=== PATIENT | male | born 1955 | race Caucasian/White ===

== ENCOUNTER → 2016-09-25 | Outpatient (CLI) | payer OTHER ==
[~2016-09-25] MED LIST: ASPEC81 PO; ASPI325T45 PO; B-COCAP20 PO; CALC0.5C2 PO; CARV6.252 PO; CIPR1TAB10 PO; CLOP1TAB15 PO; CMD5 PO; CPR500 PO; CRG125 PO; DAPT500I IV; DOCU-94 PO; ENOX30IN4 SQ; ERGO500037 PO; FENO145T26 PO; FRS/40 PO; GABA-112 PO; GABA-113 PO; GABA1CAP PO; GABA800T PO; GLY/5 PO; GLYB-236 PO; GLYB5TAB3 PO; HYDR-4452 PO; HYDR-5688 PO; INSDGI SC; INSDGIPEN SC; INSU1INJ2 SC; INSU1MIS SC; LACT10SO17 PO; LISI-725 PO; LNX125 PO; LORA-741 PO; LOVEN; LSX40 PO; METO25TA3 PO; METO5TAB25 PO; MIDO5TAB PO; NRN/300 PO; NRN100 PO; NTRGSL/4 UT; NVLG SC; OMEG10007 PO; PSYL48.59; VANC1INJ94 IV; WARF5TAB7 PO; ZLF50 PO
[2016-09-25 13:55] LABS: BLOOD UREA NITROGEN 49 mg/dl (7-18); BUN/CREATININE RATIO 12.4 (10-20); CALCIUM 8.6 mg/dl (8.5-10.1); CARBON DIOXIDE 23 mmol/L (21-32); CHLORIDE 108 mmol/L (98-107); GLUCOSE 72 mg/dl (70-99); POTASSIUM 4.1 mmol/L (3.5-5.1); SODIUM 142 mmol/L (136-145)
== END | disposition home or self-care (01) ==
LOC: C.LABMFLN 09:14
PROVIDERS: ATTEND Family Medicine
DX: I25.10 Atherosclerotic heart disease of native coronary artery without angina pectoris (principal); I50.9 Heart failure, unspecified

== ENCOUNTER → 2016-09-27 | Outpatient (CLI) | payer OTHER ==
[2016-09-27 13:24] LABS: HEMATOCRIT 36.7 % (42-52); MEAN CELL VOLUME 89.1 fL (80-100); MEAN CORPUSCULAR HEMOGLOBIN 28.4 pg (25-34); MEAN CORPUSCULAR HGB CONC 31.9 g/dl (32-36); MEAN PLATELET VOLUME 12.4 fL (7.4-10.4); PLATELET COUNT 156 K/uL (130-400); RED BLOOD COUNT 4.12 M/uL (4.7-6.1); WHITE BLOOD COUNT 6.55 K/uL (4.8-10.8)
[2016-09-27 13:38] LABS: BLOOD UREA NITROGEN 44 mg/dl (7-18); BUN/CREATININE RATIO 11.2 (10-20); CALCIUM 8.7 mg/dl (8.5-10.1); CARBON DIOXIDE 24 mmol/L (21-32); CHLORIDE 110 mmol/L (98-107); GLUCOSE 126 mg/dl (70-99); PHOSPHORUS 4.1 mg/dl (2.5-4.9); POTASSIUM 5.1 mmol/L (3.5-5.1); SODIUM 143 mmol/L (136-145); URIC ACID 8.4 mg/dl (2.6-7.2); URINE APPEARANCE CLEAR (CLEAR); URINE BILIRUBIN NEG (NEG); URINE COLOR YELLOW; URINE NITRITE NEG (NEG); UROBILINOGEN NEG (NEG)
[2016-09-27 13:39] LABS: URINE PROTIEN/CREAT RATIO 2.4 (0-0.2); URINE TOTAL PROTEIN 236.9 mg/dl (0-11.9)
[2016-09-27 13:43] LABS: MANUAL MICROSCOPIC REQUIRED? NO; REVIEW REQ? NO
[2016-10-01 11:54] LABS: ALBUMIN 3.6 G/DL (3.8-4.8); ALBUMIN % 72.51 %; ALPHA-2-GLOBULIN % 7.01 %; BETA GLOBULIN % 10.78 %; CREATININE UR 106 MG/DL (20-370); GAMMA GLOBULIN 0.8 G/DL (0.8-1.7); GAMMA GLOBULIN % 8.53 %; TOTAL PROTEIN 6.5 G/DL (6.2-8.3)
== END | disposition home or self-care (01) ==
LOC: C.LABMFLN 10:48
PROVIDERS: ATTEND Internal Medicine Nephrology
DX: N17.9 Acute kidney failure, unspecified (principal)

== ENCOUNTER → 2016-10-04 | Outpatient (CLI) | payer OTHER ==
[2016-10-04 15:34] LABS: BLOOD UREA NITROGEN 43 mg/dl (7-18); CALCIUM 8.8 mg/dl (8.5-10.1); CARBON DIOXIDE 26 mmol/L (21-32); CHLORIDE 107 mmol/L (98-107); GLUCOSE 59 mg/dl (70-99); MAGNESIUM 1.8 mg/dl (1.8-2.4); POTASSIUM 4.1 mmol/L (3.5-5.1); SODIUM 142 mmol/L (136-145)
[2016-10-04 15:35] LABS: PHOSPHORUS 3.5 mg/dl (2.5-4.9)
== END | disposition home or self-care (01) ==
LOC: C.LABMFLN 08:16
PROVIDERS: ATTEND Internal Medicine Nephrology
DX: N17.9 Acute kidney failure, unspecified (principal)

== ENCOUNTER → 2016-10-11 | Outpatient (CLI) | payer OTHER | END | disposition home or self-care (01) | LOC: C.LABMFLN 09:08 | PROVIDERS: ATTEND Internal Medicine Nephrology | DX: E55.9 Vitamin D deficiency, unspecified (principal) ==

== ENCOUNTER → 2016-11-16 | Outpatient (CLI) | payer OTHER ==
[2016-11-16 13:30] LABS: HEMATOCRIT 33.2 % (42-52); MEAN CELL VOLUME 84.7 fL (80-100); MEAN CORPUSCULAR HEMOGLOBIN 27.8 pg (25-34); MEAN CORPUSCULAR HGB CONC 32.8 g/dl (32-36); MEAN PLATELET VOLUME 11.5 fL (7.4-10.4); PLATELET COUNT 138 K/uL (130-400); RED BLOOD COUNT 3.92 M/uL (4.7-6.1); WHITE BLOOD COUNT 5.54 K/uL (4.8-10.8)
[2016-11-16 13:50] LABS: BLOOD UREA NITROGEN 36 mg/dl (7-18); BUN/CREATININE RATIO 10.6 (10-20); CALCIUM 8.4 mg/dl (8.5-10.1); CARBON DIOXIDE 26 mmol/L (21-32); CHLORIDE 103 mmol/L (98-107); GLUCOSE 262 mg/dl (70-99); MAGNESIUM 1.9 mg/dl (1.8-2.4); POTASSIUM 4.7 mmol/L (3.5-5.1); SODIUM 136 mmol/L (136-145)
[2016-11-16 13:55] LABS: FERRITIN 93.4 ng/ml (8.0-388.0); PHOSPHORUS 3.4 mg/dl (2.5-4.9); TOTAL IRON BINDING CAPACITY 287 mcg/dl (250-450)
== END | disposition home or self-care (01) ==
LOC: C.LABMFLN 07:55
PROVIDERS: ATTEND Internal Medicine Nephrology
DX: N18.4 Chronic kidney disease, stage 4 (severe) (principal); N25.81 Secondary hyperparathyroidism of renal origin

== ENCOUNTER → 2016-11-28 | Outpatient (CLI) | payer OTHER | END | disposition home or self-care (01) | LOC: C.LABMFLN 13:49 | PROVIDERS: ATTEND Family Medicine | DX: L29.9 Pruritus, unspecified (principal) ==

== ENCOUNTER → 2017-02-12 | Outpatient (CLI) | payer OTHER ==
[2017-02-12 13:57] LABS: HEMATOCRIT 31.6 % (42-52); MEAN CELL VOLUME 87.8 fL (80-100); MEAN CORPUSCULAR HEMOGLOBIN 28.1 pg (25-34); MEAN PLATELET VOLUME 10.7 fL (7.4-10.4); PLATELET COUNT 157 K/uL (130-400); WHITE BLOOD COUNT 7.18 K/uL (4.8-10.8)
[2017-02-12 14:46] LABS: BLOOD UREA NITROGEN 40 mg/dl (7-18); BUN/CREATININE RATIO 11.4 (10-20); CALCIUM 8.5 mg/dl (8.5-10.1); CARBON DIOXIDE 28 mmol/L (21-32); CHLORIDE 106 mmol/L (98-107); GLUCOSE 119 mg/dl (70-99); PHOSPHORUS 3.6 mg/dl (2.5-4.9); POTASSIUM 4.1 mmol/L (3.5-5.1); SODIUM 143 mmol/L (136-145)
== END | disposition home or self-care (01) ==
LOC: C.LABMFLN 08:41
PROVIDERS: ATTEND Internal Medicine Nephrology
DX: N18.4 Chronic kidney disease, stage 4 (severe) (principal)

== ENCOUNTER 2017-04-29 16:26 | Inpatient (IN) | payer OTHER ==
[~2017-04-29] VITALS: Ht 180.3 cm; Wt 97.0 kg
[2017-04-29] MEDS ORDERED: DILTIAZEM HCL 5 MG/ML 5 ML VIAL IV STA ×2 (16:53→17:45)
[2017-04-29] MEDS ORDERED: DILTIAZEM BOLUS / DRIP IV STA (16:53)
--- NOTE | 2017-04-29 16:56 | EMERGENCY ROOM VISIT NOTE ---
History Report prepared by Jin: Yusef Mares Under the Supervision of: Dr. Brian Peck M.D. First contact with patient: 16:48 Chief Complaint: IRREGULAR HEARTBEAT Stated Complaint: AFIB, HYPOTENSIVE, NEEDS IV- PHYSICIAN REFERRED History of Present Illness The patient is a 62 year old male with stage 4 chronic disease who presents to the Emergency Room with complaints of a persistent irregular heartbeat that was detected earlier today. The patient says that he has been feeling short of breath for 3 months, and went to his doctor's office today for fluid retention. The patient adds that his legs have been swollen. He states that his doctor told the patient to come here to get Lasix and to be evaluated for his atrial fibrillation. The patient notes that he takes Aspirin daily, but is supposed to be on 2 other blood thinners that he has not been compliant with. Source of History: patient Onset: Detected earlier today Position: other (heart - irregular heartbeat) Quality: other (afib) Timing: other (persistent) Associated Symptoms: + SOB Note: Associated symptoms: Leg swelling. Review of Systems See HPI for pertinent positives & negatives. A total of 10 systems reviewed and were otherwise negative. Past Medical & Surgical Medical Problems: (1) Acute renal failure (2) Afib (3) Anemia (4) Atrial flutter (5) CHF (congestive heart failure) (6) CKD (chronic kidney disease) stage 4, GFR 15-29 ml/min (7) Diabetic polyneuropathy (8) Hyperphosphatemia (9) Metabolic acidosis (10) Volume overload Family History No pertinent family history Social History Smoking Status: Never Smoker Marital Status: Housing Status: lives with family Current/Historical Medications Scheduled Aspirin (Aspirin), 325 MG PO DAILY Calcitriol (Rocaltrol), 0.5 MCG PO 3XWK Carvedilol (Coreg), 6.25 MG PO BID Docusate Sodium (Colace), 100 MG PO HS Ergocalciferol (Vitamin D 55234 Unit), 50,000 UNIT PO WK Fenofibrate (Tricor ), 145 MG PO DAILY Fish Oil ([place]-3), 1 CAP PO DAILY Furosemide (Lasix), 120 MG PO TID Gabapentin (Neurontin), 300 MG PO BID Glyburide-Metformin (Glyburide/Metformin Hcl), 2 TAB PO BID Lactulose (Chronulac), 30 ML PO BID Lisinopril (Zestril), 20 MG PO DAILY Metolazone (Zaroxolyn), 5 MG PO MWF Nitroglycerin (Nitrostat), 0.4 MG UT PRN Allergies Coded Allergies: No Known Allergies (Unverified , 04/29/17) Physical Exam Vital Signs Date Time Temp Pulse Resp B/P (MAP) Pulse Ox O2 Delivery O2 Flow Rate FiO2 04/29/17 20:31 49 20 87/60 96 04/29/17 20:26 49 22 82/53 93 04/29/17 20:21 50 21 84/63 04/29/17 20:16 49 18 85/62 96 04/29/17 20:13 86/62 04/29/17 20:11 124 17 /40 04/29/17 20:06 50 17 77/58 95 04/29/17 20:01 51 18 86 04/29/17 20:00 83/59 04/29/17 19:56 50 19 97 04/29/17 19:51 49 20 99 04/29/17 19:46 104 19 04/29/17 19:41 50 18 96/57 92 04/29/17 19:39 78/64 04/29/17 19:36 78 26 94 04/29/17 19:32 108/70 04/29/17 19:32 135 108/70 04/29/17 19:31 149 22 95 04/29/17 19:26 154 27 105/87 97 04/29/17 19:22 95/77 04/29/17 19:21 101 12 93 04/29/17 19:16 148 17 97 04/29/17 19:15 146/79 04/29/17 19:11 154 27 113/82 95 04/29/17 19:06 149 16 98 04/29/17 19:01 186 15 94 04/29/17 18:59 98 Room Air 04/29/17 18:56 94 Room Air 04/29/17 18:56 150 22 91 04/29/17 18:56 96 Room Air 04/29/17 18:52 101/79 04/29/17 18:51 151 23 90/78 96 04/29/17 18:47 64/52 04/29/17 18:46 134 14 87 04/29/17 18:42 105/69 04/29/17 18:41 102 21 98 04/29/17 18:36 129 17 96/75 96 04/29/17 18:32 94/75 04/29/17 18:31 150 25 88/75 04/29/17 18:26 128 22 104/75 04/29/17 18:21 123 18 98/73 04/29/17 18:16 140 17 95/74 04/29/17 18:14 115/75 04/29/17 18:11 100 /71 04/29/17 18:07 91/56 04/29/17 18:06 132 21 04/29/17 18:02 95/67 04/29/17 18:01 113 21 04/29/17 17:59 98/70 04/29/17 17:56 113 04/29/17 17:56 113 19 04/29/17 17:51 113 20 88/65 04/29/17 17:49 100/61 04/29/17 17:46 120 20 84/70 04/29/17 17:41 120 22 92/71 04/29/17 17:38 106/80 04/29/17 17:37 100/79 100/85 04/29/17 17:36 150 29 04/29/17 17:31 150 18 04/29/17 17:16 150 04/29/17 17:11 150 19 04/29/17 17:09 159 04/29/17 16:34 153 16 101/78 100 Room Air Physical Exam GENERAL: Patient is a healthy-appearing well-nourished 62 year old male HEAD: Normocephalic atraumatic EYES: Ocular movements intact pupils equal and react to light OROPHARYNX mucous membranes are moist no exudates present no erythema or edema present NECK: Supple no nuchal rigidity CHEST: Good equal expansion LUNGS: Clear and equal to auscultation CARDIAC: Normal S1 and S2 ABDOMEN: Soft nontender no guarding BACK: No CVA tenderness EXTREMITIES: No pain upon palpation normal muscle strength in all groups no clubbing cyanosis or edema NEURO: Patient is following commands and answering questions appropriately. Alert and oriented x3 Cranial Nerves 2-12 grossly intact Medical Decision & Procedures ER Provider Diagnostic Interpretation: X-ray results as stated below per interpretation by me and the radiologist: CHEST ONE VIEW PORTABLE CLINICAL HISTORY: CHEST PAIN dyspnea COMPARISON STUDY: None FINDINGS: Moderate cardiac megaly. Prior median sternotomy. Diaphragms smooth. Lungs are clear. IMPRESSION: Moderate cardiomegaly. Otherwise negative study. The above report was generated using voice recognition software. It may contain grammatical, syntax or spelling errors. Electronically signed by: Seth Gao M.D. 04/29/2017 5:35 PM Dictated Date/Time: 04/29/2017 5:35 PM Laboratory Results Test 04/29/17 17:15 04/29/17 17:16 Urine Color DK YELLOW Urine Appearance CLEAR (CLEAR) Urine pH 5.0 (4.5-7.5) Urine Specific [place] 1.025 (1.000-1.030) Urine Protein 3+ (NEG) Urine Glucose (UA) TRACE (NEG) Urine Ketones TRACE (NEG) Urine Occult Blood NEG (NEG) Urine Nitrite NEG (NEG) Urine Bilirubin NEG (NEG) Urine Urobilinogen NEG (NEG) Urine Leukocyte Esterase NEG (NEG) Urine WBC (Auto) 1-5 /hpf (0-5) Urine RBC (Auto) 5-10 /hpf (0-4) Urine Hyaline Casts (Auto) 5-10 /lpf (0-5) Urine Epithelial Cells (Auto) 10-20 /lpf (0-5) Urine Bacteria (Auto) NEG (NEG) Urine Pathogenic Casts 0-3 GRANULAR CASTS /lpf (0) Prothrombin Time 13.2 SECONDS (9.0-12.0) Prothromb Time International Ratio 1.2 (0.9-1.1) Total Bilirubin 0.5 mg/dl (0.2-1) Direct Bilirubin 0.2 mg/dl (0-0.2) Aspartate Amino Transf (AST/SGOT) 15 U/L (15-37) Alanine Aminotransferase (ALT/SGPT) 40 U/L (12-78) Alkaline Phosphatase 207 U/L (45-117) Total Creatine Kinase 75 U/L (39-308) Creatine Kinase MB 3.7 ng/ml (0.5-3.6) Creatine Kinase MB Ratio 4.9 (0-3.0) Pro-B-Type Natriuretic Peptide 19753 pg/ml (0-900) Total Protein 7.8 gm/dl (6.4-8.2) Albumin 3.5 gm/dl (3.4-5.0) Lipase 188 U/L (73-393) Date/Time Source Procedure Growth Status 04/29/17 00:00 Nasal MRSA DNA Surveillance Screen - Final Specimen Positive for MRSA by DNA Probe Complete Labs reviewed by ED physician. Medications Administered Medications (Trade) Dose Ordered Sig/Mikie Route Start Time Stop Time Status Last Admin Dose Admin Diltiazem HCl (Cardizem Bolus / Drip) 1 ea NOW STAT IV 04/29/17 16:53 04/29/17 16:55 DC 04/29/17 16:53 1 EA Diltiazem HCl (Cardizem Inj) 25 mg NOW STAT IV 04/29/17 16:53 04/29/17 16:55 DC 04/29/17 17:31 25 MG Diltiazem HCl 125 mg/Dextrose 125 ml @ 0 mls/hr Q0M PRN IV 04/29/17 17:15 05/29/17 17:14 04/30/17 03:48 5 MLS/HR Sodium Chloride 500 ml @ 999 mls/hr Q31M STAT IV 04/29/17 17:45 04/29/17 18:15 DC 04/29/17 17:48 999 MLS/HR Heparin Sodium/ Dextrose 1 ea NOW STAT N/A 04/29/17 18:01 04/29/17 18:02 DC 04/29/17 18:01 1 EA Sodium Chloride 500 ml @ 999 mls/hr Q31M STAT IV 04/29/17 18:26 04/29/17 18:56 DC 04/29/17 18:26 999 MLS/HR Heparin Sodium/ Dextrose (Heparin 25,000 Unit/500ml D5W) 25,000 unit STK-MED ONCE .ROUTE 04/29/17 18:49 04/29/17 18:50 DC 04/29/17 18:54 25,000 UNIT Metoprolol Tartrate (Lopressor Iv) 5 mg STK-MED ONCE .ROUTE 04/29/17 19:28 04/29/17 19:29 DC 04/29/17 19:32 5 MG Acetaminophen (Tylenol Tab) 650 mg Q4H PRN PO 04/29/17 20:30 05/29/17 20:29 04/30/17 15:52 650 MG ECG Indication: other (irregular heartbeat) Rate (beats per minute): 148 Rhythm: atrial fibrillation Findings: no acute ischemic change, other (old inferior infarct) Comparison ECG Date: no prior available ED Course 164: Past medical records reviewed. The patient was evaluated in room B11B. A complete history and physical examination was performed. 165: Ordered Cardizem Inj 25 mg IV, Cardizem Bolus/Drip 1 ea IV. 174: Ordered NSS 500 ml @ 999 mls/hr IV, Cardizem Inj 35 mg IV. 1750: I reevaluated and updated the patient. He is resting comfortably. The patient verbally expressed understanding and agreement of the treatment plan. The patient will be evaluated for further treatment. 1800: Ordered Heparin Sodium/Dextrose 1 ea N/A. 1822: I discussed the patient with Dr. Tre Stevens nephrology. 1824: I discussed the patient with Dr. Keny Stevens exhibition specialist - he will evaluate the patient for further treatment. Medical Decision Differential diagnosis: Etiologies such as premature contractions, electrolyte abnormality, cardiac dysrhythmia, thyroid dysfunction, pulmonary embolism, infection, gastrointestinal, as well as others were entertained. This is a 62-year-old male who presents emergency department complaining of shortness of breath. The patient is in a new onset atrial fibrillation with RVR. I tried to get this under control my given Cardizem as well as a Cardizem bolus in the emergency department. Patient was also given a fluid bolus in the emergency department. He is in acute renal failure however I do not feel he needs emergent dialysis at this time. I discussed the patient's laboratory work with the on-call rn wound care. I also discussed the case with the hospitalist who agreed to admit the patient. Medication Reconcilliation Current Medication List: was personally reviewed by me Blood Pressure Screening Patient's blood pressure: Low blood pressure Referred to hospitalist. Consults Time Called: 1819 Consulting Physician: Dr. Tre Stevens nephrology Returned Call: 1822 I discussed the patient with Dr. Tre Stevens nephrology. Additional Consults: Time Called: 1819 Consulted Physician: Dr. Keny Stevens exhibition specialist Returned Call: 1824 Additional Comments: I discussed the patient with Dr. Keny Stevens exhibition specialist - he will evaluate the patient for further treatment. Impression Primary Impression: Atrial fibrillation with RVR Additional Impression: Dehydration Critical Care I have personally spent greater than 90 minutes of critical care time in the direct management of this patient. This includes bedside care, interpretation of diagnostic studies, and testing, discussion with consultants, patient, and family members, and other required patient management activities. This 90 minutes is in excess of all separately billable procedures. Scribe Attestation The scribe's documentation has been prepared under my direction and personally reviewed by me in its entirety. I confirm that the note above accurately reflects all work, treatment, procedures, and medical decision making performed by me. Departure Information Dispostion Being Evaluated By Hospitalist Referrals Tomás Rodriguez M.D. (PCP) Patient Instructions My [facility] Problem Qualifiers
[2017-04-29] MEDS ORDERED: DILTIAZEM HCL INJ 125 MG in DEXTROSE 5% 100ML IV PRN (17:15)
[2017-04-29 17:28] LABS: BASO % 0.2 %; BASO ABS # 0.02 K/uL (0-0.2); COMPLETE YES; EOS % 1.4 %; HEMATOCRIT 36.1 % (42-52); IG% 0.9 %; LYMPH ABS # 0.97 K/uL (1.2-3.4); MEAN CELL VOLUME 86.6 fL (80-100); MEAN CORPUSCULAR HEMOGLOBIN 28.8 pg (25-34); MEAN CORPUSCULAR HGB CONC 33.2 g/dl (32-36); MONO % 6.4 %; NEUT % 79.1 %; PLATELET COUNT 231 K/uL (130-400); RED BLOOD COUNT 4.17 M/uL (4.7-6.1); WHITE BLOOD COUNT 8.07 K/uL (4.8-10.8)
[2017-04-29] MEDS ORDERED: CARV6.252 PO (17:30)
[2017-04-29] MEDS ORDERED: DOCU-94 PO (17:30)
[2017-04-29] MEDS ORDERED: METO5TAB25 PO (17:30)
[2017-04-29] MEDS ORDERED: GABA-113 PO (17:30)
[2017-04-29] MEDS ORDERED: OMEG10007 PO (17:30)
[2017-04-29] MEDS ORDERED: LACT10SO17 PO (17:30)
[2017-04-29] MEDS ORDERED: ERGO500037 PO (17:30)
[2017-04-29] MEDS ORDERED: ASPI325T45 PO (17:30)
[2017-04-29] MEDS ORDERED: FRS/40 PO (17:30)
[2017-04-29] MEDS ORDERED: NTRGSL/4 UT (17:30)
[2017-04-29] MEDS ORDERED: GLYB-236 PO (17:30)
[2017-04-29] MEDS ORDERED: FENO145T26 PO (17:30)
[2017-04-29] MEDS ORDERED: LISI-725 PO (17:30)
[2017-04-29] MEDS ORDERED: CALC0.5C2 PO (17:30)
[2017-04-29 17:37] LABS: INR 1.2 (0.9-1.1); PARTIAL THROMBOPLASTIN RATIO 1.1; PROTHROMBIN TIME (PATIENT) 13.2 SECONDS (9.0-12.0)
--- NOTE | 2017-04-29 17:37 | DIAGNOSTIC IMAGING REPORT ---
CHEST ONE VIEW PORTABLE CLINICAL HISTORY: CHEST PAIN dyspnea COMPARISON STUDY: None FINDINGS: Moderate cardiac megaly. Prior median sternotomy. Diaphragms smooth. Lungs are clear. IMPRESSION: Moderate cardiomegaly. Otherwise negative study. The above report was generated using voice recognition software. It may contain grammatical, syntax or spelling errors. Electronically signed by: Seth Gao M.D. 04/29/2017 5:35 PM Dictated Date/Time: 04/29/2017 5:35 PM
[2017-04-29] MEDS ORDERED: SODIUM CHLORIDE 0.9% 500ML 500 ML IV STA ×2 (17:45→18:26)
[2017-04-29 18:18] LABS: BUN/CREATININE RATIO 13.9 (10-20); CALCIUM 8.8 mg/dl (8.5-10.1); CKMB/CK RATIO 4.9 (0-3.0); CREATININE 6.3 mg/dl (0.60-1.40); POTASSIUM 4.5 mmol/L (3.5-5.1)
[2017-04-29] MEDS ORDERED: HEPARIN 25000 UNIT/500 ML D5W ONE (18:49)
[2017-04-29 19:09] LABS: URINE APPEARANCE CLEAR (CLEAR); URINE BILIRUBIN NEG (NEG); URINE COLOR DK YELLOW; URINE NITRITE NEG (NEG); URINE SPECIFIC GRAVITY 1.025 (1.000-1.030); UROBILINOGEN NEG (NEG)
[2017-04-29 19:11] LABS: MANUAL MICROSCOPIC REQUIRED? NO; REVIEW REQ? YES
[2017-04-29] MEDS ORDERED: METOPROLOL TARTRATE 1 MG/ML VIAL ONE (19:28)
[2017-04-29 19:41] LABS: URINE PATH CASTS 0-3 GRANULAR CASTS /lpf (0)
--- NOTE | 2017-04-29 20:25 | Medical Student: [facility] ---
Med Student History & Physical Date & Time of Service: Apr 29, 2017 at 20:24 Chief Complaint: Afib, Hypotensive, Needs Iv- Physician Referred Primary Care Physician: Tomás Rodriguez M.D. History of Present Illness Source: patient Rubio Montgomery is a 62 yo male, with PMHx of CKD, A-fib, CHF, CAD (s/p CABG ~ 2011) and diabetes, who presented to the ED via car (driven by son), complaining of lower leg fluid and shortness of breath for the last couple of months. Patient states that he was seen by his PCP today, who noticed his atrial flutter today, and worsening lower leg swelling and worsening shortness of breath for the last two weeks. Patient reports his lower extremities feel stiff secondary to fluid retention, and his left nowak has watery discharge from an opening in the skin. He also reports feeling bloated, with abdominal distention, and recently epigastric pain for the last day. Patient states that he is short of breath with exertion and cannot lay down completely secondary to breathlessness. He notes associated symptoms of decreased appetite, dry mouth, and fatigue for the last few weeks. During the exam, patient reported feeling lightheaded when sitting up from a laying position. Patient notes history of decreased ambulation secondary to lower extremity cramping after walking short distances. He states his ambulation has been worse recently from excess fluid. Patient denies history of diagnosis of atrial fibrillation, stating he only takes aspirin daily, and denies taking any blood thinners. He reports taking furosemide for the fluid in his legs over the past couple of months, but is unable to confirm taking any of his other medications. Patient denies: palpitations, chest pain, fever, chills, diaphoresis, vision changes, hearing changes, sore throat, nasal congestion, ear pain, rash, cough, any other abdominal pain, nausea, vomiting, diarrhea, constipation, urinary changes, bowel changes, tremor, numbness/tingling in arms/legs Past Medical/Surgical History -Atrial fibrillation, atrial flutter (2:1) -CHF -CKD stage IV -diabetes, type 2 -diabetic polyneuropathy -CAD, hx of CABG (5 vessel per patient) ~2011 -Hx of tobacco dependence (15pack years, quit ~2011) Previous surgical history -CABG (5 vessel per patient), [place], ~2011 -Hernia repair (distant past per patient) Family History Father: pertinent history of (hepatitis from blood transfusion) Mother: cancer (mouth) Sibling(s): pertinent history of (arthritis) Grandmother: diabetes Social History Smoking Status: Former Smoker (1ppd for 15 years, quit ~5 years ago) Alcohol Use: none Marital Status: Housing status: lives with family 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, 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) Allergies Coded Allergies: No Known Allergies (Unverified , 04/29/17) Medications Aspirin (Aspirin), 325 MG PO DAILY Calcitriol (Rocaltrol), 0.5 MCG PO 3XWK Carvedilol (Coreg), 6.25 MG PO BID Docusate Sodium (Colace), 100 MG PO HS Ergocalciferol (Vitamin D 96662 Unit), 50,000 UNIT PO WK Fenofibrate (Tricor ), 145 MG PO DAILY Fish Oil ([place]-3), 1 CAP PO DAILY Furosemide (Lasix), 120 MG PO TID Gabapentin (Neurontin), 300 MG PO BID Glyburide-Metformin (Glyburide/Metformin Hcl), 2 TAB PO BID Lactulose (Chronulac), 30 ML PO BID Lisinopril (Zestril), 20 MG PO DAILY Metolazone (Zaroxolyn), 5 MG PO MWF Nitroglycerin (Nitrostat), 0.4 MG UT PRN Review of Systems Constitutional: + fatigue, No fever, No chills, No sweats Eyes: No worsening of vision, No eye pain, No redness ENT: No hearing loss, No nasal symptoms, No sore throat Respiratory: + shortness of breath, + dyspnea on exertion, No cough, No sputum , No wheezing, No dyspnea at rest Cardiovascular: + orthopnea, + PND, + edema, + claudication, No chest pain Abdomen: + pain (epigastric), + problem reported (distention), No nausea, No vomiting, No diarrhea, No constipation Musculoskeletal: + swelling (bilateral legs), + calf pain (with exertion), No joint pain (muscle stiffness) Genitourinary - Male: No hematuria, No dysuria, No urinary frequency Neurologic: No memory loss, No numbness/tingling Endocrine: + fatigue Hematologic / Lymphatic: No abnormal bleeding/bruising, No swollen lymph nodes Integumentary: No rash, No itch, No new/changing skin lesions Physical Exam Vital Signs (24 Hours) Date Time Temp Pulse Resp B/P (MAP) Pulse Ox O2 Delivery O2 Flow Rate FiO2 04/29/17 19:32 135 108/70 04/29/17 19:01 186 15 94 04/29/17 18:59 98 Room Air 04/29/17 18:56 94 Room Air 04/29/17 18:56 150 22 91 04/29/17 18:56 96 Room Air 04/29/17 18:52 101/79 04/29/17 18:51 151 23 90/78 96 04/29/17 18:47 64/52 04/29/17 18:46 134 14 87 04/29/17 18:42 105/69 04/29/17 18:41 102 21 98 04/29/17 18:36 129 17 96/75 96 04/29/17 18:32 94/75 04/29/17 18:31 150 25 88/75 04/29/17 18:26 128 22 104/75 04/29/17 18:21 123 18 98/73 04/29/17 18:16 140 17 95/74 04/29/17 18:14 115/75 04/29/17 18:11 100 /71 04/29/17 18:07 91/56 04/29/17 18:06 132 21 04/29/17 18:02 95/67 04/29/17 18:01 113 21 04/29/17 17:59 98/70 04/29/17 17:56 113 04/29/17 17:56 113 19 04/29/17 17:51 113 20 88/65 04/29/17 17:49 100/61 04/29/17 17:46 120 20 84/70 04/29/17 17:41 120 22 92/71 04/29/17 17:38 106/80 04/29/17 17:37 100/79 100/85 04/29/17 17:36 150 29 04/29/17 17:31 150 18 04/29/17 17:16 150 04/29/17 17:11 150 19 04/29/17 17:09 159 04/29/17 16:34 153 16 101/78 100 Room Air General Appearance: WD/WN, no apparent distress Head: normocephalic, atraumatic Eyes: normal inspection, PERRL, sclerae normal ENT: normal ENT inspection (wax in bilateral ears, could not visualize TMs), hearing grossly normal, pharynx normal Neck: supple, no adenopathy, + JVD Respiratory/Chest: chest non-tender, lungs clear, normal breath sounds, no respiratory distress Cardiovascular: + JVD, + tachycardia, + abnormal peripheral pulses (faint, difficulty obtaining BP reading), + pertinent finding (JVD, edema) Abdomen/GI: normal bowel sounds, non tender, soft, no organomegaly, + distended , + pertinent finding (fluid wave) Back: normal inspection, no muscle spasm, normal range of motion Extremities/Musculoskelatal: normal inspection, no calf tenderness, normal range of motion, non-tender, + swelling Neurologic/Psych: no motor/sensory deficits, alert, normal mood/affect, normal reflexes, oriented x 3 Skin: normal color, warm/dry, no rash, + pertinent finding (stasis dermatitis on bilateral lower extremities, left leg superficial ulceration that is open and oozing clear discharge) Lymphatic: no adenopathy Diagnostics Laboratory Results Results Past 24 Hours Test 04/29/17 17:15 04/29/17 17:16 Range/Units Urine Color DK YELLOW Urine Appearance CLEAR CLEAR Urine pH 5.0 4.5-7.5 Urine Specific [place] 1.025 1.000-1.030 Urine Protein 3+ NEG Urine Glucose (UA) TRACE NEG Urine Ketones TRACE NEG Urine Occult Blood NEG NEG Urine Nitrite NEG NEG Urine Bilirubin NEG NEG Urine Urobilinogen NEG NEG Urine Leukocyte Esterase NEG NEG Urine WBC (Auto) 1-5 0-5 /hpf Urine RBC (Auto) 5-10 0-4 /hpf Urine Hyaline Casts (Auto) 5-10 0-5 /lpf Urine Epithelial Cells (Auto) 10-20 0-5 /lpf Urine Bacteria (Auto) NEG NEG Urine Pathogenic Casts 0-3 GRANULAR CASTS 0 /lpf White Blood Count 8.07 4.8-10.8 K/uL Red Blood Count 4.17 4.7-6.1 M/uL Hemoglobin 12.0 14.0-18.0 g/dL Hematocrit 36.1 42-52 % Mean Corpuscular Volume 86.6 80-100 fL Mean Corpuscular Hemoglobin 28.8 25-34 pg Mean Corpuscular Hemoglobin Concent 33.2 32-36 g/dl Platelet Count 231 130-400 K/uL Mean Platelet Volume 11.0 7.4-10.4 fL Neutrophils (%) (Auto) 79.1 % Lymphocytes (%) (Auto) 12.0 % Monocytes (%) (Auto) 6.4 % Eosinophils (%) (Auto) 1.4 % Basophils (%) (Auto) 0.2 % Neutrophils # (Auto) 6.38 1.4-6.5 K/uL Lymphocytes # (Auto) 0.97 1.2-3.4 K/uL Monocytes # (Auto) 0.52 0.11-0.59 K/uL Eosinophils # (Auto) 0.11 0-0.5 K/uL Basophils # (Auto) 0.02 0-0.2 K/uL RDW Standard Deviation 43.9 36.4-46.3 fL RDW Coefficient of Variation 14.2 11.5-14.5 % Immature Granulocyte % (Auto) 0.9 % Immature Granulocyte # (Auto) 0.07 0.00-0.02 K/uL Prothrombin Time 13.2 9.0-12.0 SECONDS Prothromb Time International Ratio 1.2 0.9-1.1 Activated Partial Thromboplast Time 28.1 21.0-31.0 SECONDS Partial Thromboplastin Ratio 1.1 Sodium Level 135 136-145 mmol/L Potassium Level 4.5 3.5-5.1 mmol/L Chloride Level 97 98-107 mmol/L Carbon Dioxide Level 24 21-32 mmol/L Anion Gap 14.0 3-11 mmol/L Blood Urea Nitrogen 89 7-18 mg/dl Creatinine 6.30 0.60-1.40 mg/dl Est Creatinine Clear Calc Drug Dose 14.7 ml/min Estimated GFR () 10.1 Estimated GFR (Non- 8.7 BUN/Creatinine Ratio 13.9 10-20 Random Glucose 161 70-99 mg/dl Calcium Level 8.8 8.5-10.1 mg/dl Total Bilirubin 0.5 0.2-1 mg/dl Direct Bilirubin 0.2 0-0.2 mg/dl Aspartate Amino Transf (AST/SGOT) 15 15-37 U/L Alanine Aminotransferase (ALT/SGPT) 40 12-78 U/L Alkaline Phosphatase 207 45-117 U/L Total Creatine Kinase 75 39-308 U/L Creatine Kinase MB 3.7 0.5-3.6 ng/ml Creatine Kinase MB Ratio 4.9 0-3.0 Troponin I 0.041 0-0.045 ng/ml Pro-B-Type Natriuretic Peptide 13420 0-900 pg/ml Total Protein 7.8 6.4-8.2 gm/dl Albumin 3.5 3.4-5.0 gm/dl Lipase 188 73-393 U/L Diagnostic Radiology CHEST ONE VIEW PORTABLE CLINICAL HISTORY: CHEST PAIN dyspnea COMPARISON STUDY: None FINDINGS: Moderate cardiac megaly. Prior median sternotomy. Diaphragms smooth. Lungs are clear. IMPRESSION: Moderate cardiomegaly. Otherwise negative study. EKG Atrial flutter with 2:1 A-V conduction Left axis deviation No prior EKG available Impression Assessment and Plan Rubio Montgomery is a 62 yo male, with PMHx of CKD, CHF, and diabetes, who presented to the ED via his PCP complaining of bilateral leg swelling, shortness of breath, and documented atrial fibrillation from his PCP. Creatinine from 3 months ago was 3.5, with today's creatinine at 6.5. On the monitor in the ED, patient's heart rate was 150s atrial flutter (2:1) and blood pressure was low (around 80-100 systolic). Patient's signs and symptoms are indicative of acute renal failure on chronic kidney disease (stage IV), atrial flutter, and congestive heart failure. Patient will be admitted to ICU for further evaluation. Plan: Acute renal failure on chronic kidney disease (stage IV) - Trend creatinine, renal clearance, and electrolytes - Limit fluids (NPO and no IV fluids). Antony catheter to monitor I&Os - Renal ultrasound - Consult nephrology - Consider dialysis if no improvement in renal function Atrial flutter - Continuous heart monitoring while in hospital, monitoring to keep heart rate above 60 and systolic blood pressure above 90. - Continue diltiazem drip and metoprolol 2.5mg q4hrs PRN - Heparin IV for anti-coagulation - Continue at home medication aspirin (325mg daily) Congestive heart failure - Trend troponins - Repeat CBC with diff, electrolytes, BNP - Limit fluids (NPO and no IV fluids) - Consult cardiology DM type 2 - Insulin aspart, with correction of 30, for glucose as needed Restless leg syndrome - Continue home medication of Neurontin (Gabapentin) but at lowered dose based on renal function (100 Mg PO BID) Level of Care Critical Care Resuscitation Status FULL RESUSCITATION DVT Prophylaxis unfractionated heparin SQ
[2017-04-29] MEDS ORDERED: DILTIAZEM BOLUS / DRIP IV PRN (20:27)
[2017-04-29] MEDS ORDERED: MoRPHine SULFATE 2 MG/ML CARP IV PRN (20:30)
[2017-04-29] MEDS ORDERED: ONDANSETRON INJ 2 MG/ML 2 ML VIAL IV PRN (20:30)
[2017-04-29 21:35] VITALS: BP 80/56; PULSE 64; TEMP 36.6; O2SAT 93; BMI 30.9
--- NOTE | 2017-04-29 21:35 | History and Physical ---
History & Physical Date & Time of Service: Apr 29, 2017 at 20:04 Chief Complaint: Afib, Hypotensive, Needs Iv- Physician Referred Primary Care Physician: Tomás Vasquez M.D. History of Present Illness Source: patient 62yo male with h/o chronic systolic CHF, CKD stage 4, CAD s/p CABG, and uncontrolled T2DM who presented to his PCP's office today due to concern of worsening LE edema as well as worsening dyspnea on exertion. This has been ongoing for about 2 weeks or more. He has had associated orthopnea. He has had no chest pain. When he presented to his PCP's office today he was in rapid a. flutter. He was immediately sent to [facility] for evaluation. In addition to the above he has had abdominal swelling and bloating. He has been noncompliant with his medication regimen except for his lasix and aspirin. He does not check his blood sugars. In the ER he was found to have rapid a. flutter with rates >150. He was given cardizem. By the time of my assessment he was maxed on cardizem at 15mg/hour and rates were still 120-140's with systolic BP in the 90s. We administered 2.5mg of IV lopressor with improvement of his HRs to 90-100. Systolic BPs remained in the 90s. Staff report that it is difficult to measure his BP. The only arm that gives accurate readings is the right arm. Past Medical/Surgical History PMH: 1. question of h/o a. fib ?? 2. CKD stage 4 - baseline Cr 3.5 3. diabetic polyneuropathy 4. T2DM 5. chronic systolic CHF - EF 25-30% - 09/2016 (per [employer]) 6. CAD s/p CABG x 5 at [facility] [place] - 01/18/14; CABG was preceded by NSTEMI 7. PAD 8. prior tobacco dependence 9. carotid stenosis PSH: 1. CABG - 5-vessel - [facility] - 2013 2. hernia repair (inguinal) 3. appendectomy 4. 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 ) Allergies Coded Allergies: No Known Allergies (Unverified , 04/29/17) Home Medications Scheduled Aspirin (Aspirin), 325 MG PO DAILY Calcitriol (Rocaltrol), 0.5 MCG PO 3XWK Carvedilol (Coreg), 6.25 MG PO BID Docusate Sodium (Colace), 100 MG PO HS Ergocalciferol (Vitamin D 72106 Unit), 50,000 UNIT PO WK Fenofibrate (Tricor ), 145 MG PO DAILY Fish Oil ([place]-3), 1 CAP PO DAILY Furosemide (Lasix), 120 MG PO TID Gabapentin (Neurontin), 300 MG PO BID Glyburide-Metformin (Glyburide/Metformin Hcl), 2 TAB PO BID Lactulose (Chronulac), 30 ML PO BID Lisinopril (Zestril), 20 MG PO DAILY Metolazone (Zaroxolyn), 5 MG PO MWF Nitroglycerin (Nitrostat), 0.4 MG UT PRN Review of Systems Constitutional: + problem reported (weight gain?; anorexia ), No fever, No chills Eyes: No worsening of vision ENT: No hearing loss, No nasal symptoms, No sore throat Respiratory: + dyspnea on exertion, No cough, No hemoptysis Cardiovascular: + orthopnea, + PND, + edema, + claudication (both calves with walking ), No chest pain Abdomen: No pain, No nausea, No vomiting, No diarrhea, No constipation Musculoskeletal: + muscle pain (feels "stiff" in legs), No joint pain Genitourinary - Male: No hematuria Neurologic: + numbness/tingling (feet), + balance problems (lightheadedness) Endocrine: + fatigue Hematologic / Lymphatic: No abnormal bleeding/bruising Integumentary: + rash (on legs) Physical Exam Vital Signs Date Time Temp Pulse Resp B/P (MAP) Pulse Ox O2 Delivery O2 Flow Rate FiO2 04/29/17 19:32 135 108/70 04/29/17 19:01 186 15 94 04/29/17 18:59 98 Room Air 04/29/17 18:56 94 Room Air 04/29/17 18:56 150 22 91 04/29/17 18:56 96 Room Air 04/29/17 18:52 101/79 04/29/17 18:51 151 23 90/78 96 04/29/17 18:47 64/52 04/29/17 18:46 134 14 87 04/29/17 18:42 105/69 04/29/17 18:41 102 21 98 04/29/17 18:36 129 17 96/75 96 04/29/17 18:32 94/75 04/29/17 18:31 150 25 88/75 04/29/17 18:26 128 22 104/75 04/29/17 18:21 123 18 98/73 04/29/17 18:16 140 17 95/74 04/29/17 18:14 115/75 04/29/17 18:11 100 /71 04/29/17 18:07 91/56 04/29/17 18:06 132 21 04/29/17 18:02 95/67 04/29/17 18:01 113 21 04/29/17 17:59 98/70 04/29/17 17:56 113 04/29/17 17:56 113 19 04/29/17 17:51 113 20 88/65 04/29/17 17:49 100/61 04/29/17 17:46 120 20 84/70 04/29/17 17:41 120 22 92/71 04/29/17 17:38 106/80 04/29/17 17:37 100/79 100/85 04/29/17 17:36 150 29 04/29/17 17:31 150 18 04/29/17 17:16 150 04/29/17 17:11 150 19 04/29/17 17:09 159 04/29/17 16:34 153 16 101/78 100 Room Air General Appearance: + pertinent finding (looks ill but NAD, falling asleep during my exam, c/o being cold) Head: normocephalic, atraumatic Eyes: PERRL ENT: TMs normal, pharynx normal Neck: supple, no adenopathy, thyroid normal, no carotid bruits, trachea midline , + JVD Respiratory/Chest: lungs clear, no respiratory distress, no accessory muscle use Cardiovascular: no gallop, no murmur, + tachycardia, + abnormal peripheral pulses (radial pulses <1+; popliteal pulses <1+; DP and post tib pulses in feet <1+) Abdomen/GI: normal bowel sounds, non tender, soft, no organomegaly, + distended (mild - probably some element of ascites) Extremities/Musculoskelatal: + pedal edema (1-2+ b/l, worse on left), + slow capillary refill Neurologic/Psych: no motor/sensory deficits, alert, normal reflexes, oriented x 3 Skin: + pertinent finding (multiple preulcers and ulcers on several toes, left foot; stasis changes b/l shins; there is preulcer over the proximal left [place]ak as well ) Diagnostics Laboratory Results Results Past 24 Hours Test 04/29/17 17:15 04/29/17 17:16 Range/Units Urine Color DK YELLOW Urine Appearance CLEAR CLEAR Urine pH 5.0 4.5-7.5 Urine Specific [place] 1.025 1.000-1.030 Urine Protein 3+ NEG Urine Glucose (UA) TRACE NEG Urine Ketones TRACE NEG Urine Occult Blood NEG NEG Urine Nitrite NEG NEG Urine Bilirubin NEG NEG Urine Urobilinogen NEG NEG Urine Leukocyte Esterase NEG NEG Urine WBC (Auto) 1-5 0-5 /hpf Urine RBC (Auto) 5-10 0-4 /hpf Urine Hyaline Casts (Auto) 5-10 0-5 /lpf Urine Epithelial Cells (Auto) 10-20 0-5 /lpf Urine Bacteria (Auto) NEG NEG Urine Pathogenic Casts 0-3 GRANULAR CASTS 0 /lpf White Blood Count 8.07 4.8-10.8 K/uL Red Blood Count 4.17 4.7-6.1 M/uL Hemoglobin 12.0 14.0-18.0 g/dL Hematocrit 36.1 42-52 % Mean Corpuscular Volume 86.6 80-100 fL Mean Corpuscular Hemoglobin 28.8 25-34 pg Mean Corpuscular Hemoglobin Concent 33.2 32-36 g/dl Platelet Count 231 130-400 K/uL Mean Platelet Volume 11.0 7.4-10.4 fL Neutrophils (%) (Auto) 79.1 % Lymphocytes (%) (Auto) 12.0 % Monocytes (%) (Auto) 6.4 % Eosinophils (%) (Auto) 1.4 % Basophils (%) (Auto) 0.2 % Neutrophils # (Auto) 6.38 1.4-6.5 K/uL Lymphocytes # (Auto) 0.97 1.2-3.4 K/uL Monocytes # (Auto) 0.52 0.11-0.59 K/uL Eosinophils # (Auto) 0.11 0-0.5 K/uL Basophils # (Auto) 0.02 0-0.2 K/uL RDW Standard Deviation 43.9 36.4-46.3 fL RDW Coefficient of Variation 14.2 11.5-14.5 % Immature Granulocyte % (Auto) 0.9 % Immature Granulocyte # (Auto) 0.07 0.00-0.02 K/uL Prothrombin Time 13.2 9.0-12.0 SECONDS Prothromb Time International Ratio 1.2 0.9-1.1 Activated Partial Thromboplast Time 28.1 21.0-31.0 SECONDS Partial Thromboplastin Ratio 1.1 Sodium Level 135 136-145 mmol/L Potassium Level 4.5 3.5-5.1 mmol/L Chloride Level 97 98-107 mmol/L Carbon Dioxide Level 24 21-32 mmol/L Anion Gap 14.0 3-11 mmol/L Blood Urea Nitrogen 89 7-18 mg/dl Creatinine 6.30 0.60-1.40 mg/dl Est Creatinine Clear Calc Drug Dose 14.7 ml/min Estimated GFR () 10.1 Estimated GFR (Non- 8.7 BUN/Creatinine Ratio 13.9 10-20 Random Glucose 161 70-99 mg/dl Calcium Level 8.8 8.5-10.1 mg/dl Total Bilirubin 0.5 0.2-1 mg/dl Direct Bilirubin 0.2 0-0.2 mg/dl Aspartate Amino Transf (AST/SGOT) 15 15-37 U/L Alanine Aminotransferase (ALT/SGPT) 40 12-78 U/L Alkaline Phosphatase 207 45-117 U/L Total Creatine Kinase 75 39-308 U/L Creatine Kinase MB 3.7 0.5-3.6 ng/ml Creatine Kinase MB Ratio 4.9 0-3.0 Troponin I 0.041 0-0.045 ng/ml Pro-B-Type Natriuretic Peptide 19358 0-900 pg/ml Total Protein 7.8 6.4-8.2 gm/dl Albumin 3.5 3.4-5.0 gm/dl Lipase 188 73-393 U/L Diagnostic Radiology CXR - no edema or infiltrates EKG EKG - a. flutter with 2:1 conduction, rate of about 150 Impression Assessment and Plan 62yo male with h/o chronic systolic CHF - EF 25-30%, CKD stage 4, CAD s/p CABG, PAD, and uncontrolled T2DM presenting with acute renal failure and rapid a. flutter. 1. a. flutter - I looked through his inpatient records and [employer] records and could not find definitively if he has had a. flutter or fib in the past. His rates responded poorly to cardizem infusion but did respond to low-dose IV lopressor. Will continue the cardizem for now and lopressor prn. Heparin drip has been initiated. Check TSH and serial troponins. Check mag with next blood draw. Echo ordered for the AM. Cardiology consultation placed. He remains tenuous as his BP is low-normal and his renal function has deteriorated significantly. I discussed his case with the ICU attending. 2. acute renal failure in the setting of CKD stage 4 - he appears mildly volume overloaded (mainly right-sided signs) and is mildly acidotic. Potassium is normal. In light of his known systolic CHF additional IVF is not an option. Place agrawal. Check renal ultrasound. Case d/w Dr. 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 His ARF is probably due to cardiorenal syndrome. His underlying CKD appears to be diabetic nephropathy. 3. T2DM - novolog sliding scale for now. Oral agents discontinued. 4. PAD - noted; continue aspirin. Records suggest he has been intolerant to all statins. 5. DVT proph - heparin infusion. 6. chronic systolic CHF - last known EF 25-50% on echo 09/2016. Repeat echo in am. He appears mildly volume overloaded but fortunately O2 sats are normal. 7. diabetic neuropathy - will continue the gabapentin but reduce the dose to 100mg BID in light of his acute renal failure. 8. CAD with prior CABG - serial troponins to r/o ACS. Cont aspirin. Low-dose beta brenda if BP can tolerate. Lengthy discussion held with patient about code status. He initially stated he wouldn't want CPR but changed his mind during the conversation. He instead wants to talk with his about these decisions. At the conclusion I told him we would continue level 1 full code status unless he told us otherwise. Level of Care Critical Care Advanced Directives Existing Advance Directive: No Existing Living Will: No Existing Power of Casualty Insurance Claim Adjuster: No Existing Health Care Proxy: No Resuscitation Status FULL RESUSCITATION VTE Prophylaxis Risk Level: High Given or contraindicated: Other Anticoagulation Note Total Time: Critical Care 30 - 74 minutes Additional Copies To TOMÁS VASQUEZ Fahima MD; Josafat Goyal MD
[2017-04-29 21:36] VITALS: BP 80/56; PULSE 67; O2SAT 92
[2017-04-29 22:03] VITALS: BP 92/58; PULSE 66; PULSE 86; O2SAT 91
[2017-04-29] MEDS: GABAPENTIN 100 MG CAP PO SCH (22:05)
[2017-04-29] MEDS: INSULIN ASPART 100 UNITS/ML 3 ML PEN SC SCH (22:09)
--- NOTE | 2017-04-29 22:44 | DIAGNOSTIC IMAGING REPORT ---
(RENAL)RETROPERITONEA COMP HISTORY: Renal failure. Renal insufficiency. Pt ARF COMPARISON: None. FINDINGS: Right kidney: Maximum dimension 12.6 cm. No evidence for hydronephrosis. Normal corticomedullary differentiation and cortical thickness. Left kidney: Maximum dimension 10.9 cm. No evidence for hydronephrosis. Small cyst lower pole left kidney measuring 2.0 and 1.5 cm respectively. Normal corticomedullary differentiation and cortical thickness. Bladder: No bladder wall thickening. The bilateral ureteral jets were identified. IMPRESSION: Small left renal cysts. Otherwise negative study. No evidence for hydronephrosis. The above report was generated using voice recognition software. It may contain grammatical, syntax or spelling errors. Electronically signed by: Seth Gao M.D. 04/29/2017 10:42 PM Dictated Date/Time: 04/29/2017 10:41 PM
[2017-04-29 23:04] VITALS: BP 84/61; PULSE 48; PULSE 90; O2SAT 97
[2017-04-29 23:46] VITALS: BP 94/73; PULSE 97; TEMP 36.9; O2SAT 98
[2017-04-29] MEDS: ACETAMINOPHEN 325 MG TAB PO PRN (23:50)
[2017-04-29 23:52] LABS: THYROID STIMULATING HORMONE 1.24 uIu/ml (0.300-4.500)
[2017-04-29 23:59] VITALS: O2SAT 97
[2017-04-30] VITALS (27 sets, daily range): BP systolic 66–139; BP diastolic 34–83; PULSE 65–137; TEMP 36.6–37; O2SAT 90–100
[2017-04-30 04:16] LABS: BASO % 0.2 %; BASO ABS # 0.02 K/uL (0-0.2); COMPLETE YES; EOS % 0.5 %; IG% 1.6 %; LYMPH % 11.8 %; LYMPH ABS # 1.31 K/uL (1.2-3.4); MEAN CELL VOLUME 86.4 fL (80-100); MEAN CORPUSCULAR HEMOGLOBIN 28.9 pg (25-34); MEAN CORPUSCULAR HGB CONC 33.4 g/dl (32-36); MEAN PLATELET VOLUME 11.7 fL (7.4-10.4); MONO % 6.2 %; NEUT % 79.7 %; PLATELET COUNT 273 K/uL (130-400); RED BLOOD COUNT 4.05 M/uL (4.7-6.1); WHITE BLOOD COUNT 11.06 K/uL (4.8-10.8)
[2017-04-30 04:31] LABS: PARTIAL THROMBOPLASTIN RATIO 2.1
[2017-04-30 04:43] LABS: BUN/CREATININE RATIO 13.8 (10-20); CALCIUM 8.6 mg/dl (8.5-10.1); CREATININE 6.7 mg/dl (0.60-1.40); PHOSPHORUS 7.2 mg/dl (2.5-4.9); POTASSIUM 4.6 mmol/L (3.5-5.1)
[2017-04-30] MEDS: METOPROLOL TARTRATE 1 MG/ML VIAL IV PRN ×2 (05:17→23:44)
[2017-04-30] MEDS: ACETAMINOPHEN 325 MG TAB PO PRN ×2 (06:32→15:52)
[2017-04-30] MEDS: INSULIN ASPART 100 UNITS/ML 3 ML PEN SC SCH ×3 (06:34→21:15)
[2017-04-30] MEDS ORDERED: PHARMACY GLYCEMIC MGMT CONSULT PRN (08:38)
[2017-04-30] MEDS: GABAPENTIN 100 MG CAP PO SCH ×2 (09:03→21:09)
[2017-04-30] MEDS: PRAMIPEXOLE DIHYDROCHLORIDE 0.25MG TAB PO SCH (09:03)
[2017-04-30] MEDS: ASPIRIN 325 MG ECTAB PO SCH (09:03)
[2017-04-30 10:24] LABS: FERRITIN 265.7 ng/ml (8.0-388.0)
[2017-04-30] MEDS: CALCITRIOL 0.25 MCG CAP PO SCH (10:30)
[2017-04-30] MEDS ORDERED: FUROSEMIDE INJ 120 MG in SYRINGE 0 ML IV ONE (10:30)
[2017-04-30] MEDS: CALCIUM CARBONATE 500 MG CHEWABLE PO SCH ×2 (10:31→15:42)
[2017-04-30] MEDS: INSULIN GLARGINE SOLOSTAR 100 UNITS/ML 3 ML PEN SC SCH ×2 (10:37→21:13)
[2017-04-30] MEDS: HEPARIN 25,000 UNIT/500ML D5W 500 ML IV PRN (10:38)
--- NOTE | 2017-04-30 10:47 | Nephrology Consultation ---
Nephrology Consultation Date & Providers Date of Consultation: Apr 30, 2017. Primary Care Provider: Tomás Rodriguez M.D. Referring Provider: Reason for Consultation Evaluation and management for acute kidney injury with CKD and possible need for emergency dialysis. History of Present Illness Rubio Is a 62-year-old gentlemen with past medical history significant for coronary artery disease status post CABG, hypertension, diabetes, stage 4 CKD admitted to the hospital with volume overload, if greater and acute kidney injury. Nephrologic consult was requested for evaluation for need for emergency dialysis and management of volume overload. Rubio has stage 4 chronic kidney disease secondary to diabetic nephropathy, baseline creatinine has been around 3.5-3.6. Has moderate degree proteinuria. Prior renal imaging was otherwise unremarkable. He previously went for renal replacement therapy education class and decided to be on Peritoneal dialysis for renal replacement therapy. He has history of CHF with right-sided heart failure, at baseline has been on Lasix 80 mg twice a day. Has history of a flutter, previously he was noncompliant with anticoagulation. over last few weeks he has been having progressive shortness of breath, worsening lower extremity edema and abdominal distension. Yesterday he was seen at his PCP office and he was found to be in a flutter, with SOB and significant volume overload. He was sent to ED for further evaluation. In ED his blood pressure was low, found to have acute kidney injury ,creatinine was 6.3, other electrolyte including potassium and bicarbonate was acceptable. Diuretics was held and he was given IV normal saline. He was started on Cardizem for rate control and currently on heparin for anticoagulation. His blood pressure has been persistently low, heart rate now improved to 60s to 70s. He overall feels poorly, bothered by worsening lower extremity edema and abdominal distension. He has been having difficulty lying flat even at home and he attributes that to his anxiety and restlessness. Allergies Coded Allergies: No Known Allergies (Unverified , 04/29/17) Inpatient Medications Current Inpatient Medications Medications (Trade) Dose Ordered Sig/Mikie Route Start Time Stop Time Status Last Admin Dose Admin Diltiazem HCl 125 mg/Dextrose 125 ml @ 0 mls/hr Q0M PRN IV 04/29/17 17:15 05/29/17 17:14 04/30/17 03:48 5 MLS/HR Acetaminophen (Tylenol Tab) 650 mg Q4H PRN PO 04/29/17 20:30 05/29/17 20:29 04/30/17 06:32 650 MG Ondansetron HCl (Zofran Inj) 4 mg Q6H PRN IV 04/29/17 20:30 05/29/17 20:29 Morphine Sulfate (MoRPHine SULFATE INJ) 2 mg Q4H PRN IV 04/29/17 20:30 05/13/17 20:29 Aspirin (Ecotrin Tab) 325 mg DAILY PO 04/30/17 09:00 05/30/17 08:59 Gabapentin (Neurontin Cap) 100 mg BID PO 04/29/17 21:00 05/29/17 20:59 04/29/17 22:05 100 MG Calcitriol (Rocaltrol Cap) 0.5 mcg MoWeFr@0900 PO 05/01/17 09:00 05/31/17 08:59 Insulin Aspart (novoLOG ASPART) SLIDING SCALE G... ACHS SC 04/29/17 21:00 05/29/17 20:59 04/30/17 06:34 2 UNITS Heparin Sodium/ Dextrose 500 ml @ 30 mls/hr [id number] PRN IV 04/29/17 21:00 05/29/17 20:59 Metoprolol Tartrate (Lopressor Iv) 2.5 mg Q4 PRN IV 04/29/17 21:00 05/29/17 20:59 04/30/17 05:17 2.5 MG Family History No pertinent family history Social History Smoking Status: Former Smoker Smokeless Tobacco Use: No Alcohol Use: none Drug Use: none Marital Status: Housing Status: lives with family Occupation: disabled Review of Systems A complete review of systems was performed. Pertinent positives are noted above. All other systems are negative. Physical Exam Date Time Temp Pulse Resp B/P (MAP) Pulse Ox O2 Delivery O2 Flow Rate FiO2 04/30/17 06:03 91 25 83/62 (71) 04/30/17 05:17 110 96/67 04/30/17 05:09 70 14 96/67 (80) 04/30/17 05:01 109 14 85/60 (73) 04/30/17 04:10 36.7 98 17 85/60 (73) 97 04/30/17 04:00 97 Nasal Cannula 04/30/17 03:12 98 16 86/59 (66) 98 04/30/17 02:11 98 20 94/59 (65) 97 04/30/17 01:01 97 20 95/59 (70) 99 04/30/17 00:22 90 16 97/69 (78) 100 04/30/17 00:01 97 18 89/64 (70) 99 04/29/17 23:59 97 Nasal Cannula 04/29/17 23:46 36.9 97 21 94/73 (88) 98 04/29/17 23:04 90 20 84/61 (66) 97 04/29/17 22:03 86 18 92/58 (60) 91 04/29/17 21:40 67 21 80/56 92 04/29/17 21:36 67 21 80/56 92 04/29/17 21:36 67 21 80/56 (65) 92 04/29/17 21:36 94 Room Air 04/29/17 21:35 36.6 64 20 80/56 93 Room Air 04/29/17 21:11 51 19 83/63 90 04/29/17 21:06 58 21 96 04/29/17 21:05 84/63 04/29/17 21:01 109 20 102/71 04/29/17 20:56 97 16 89/58 04/29/17 20:52 76/55 04/29/17 20:51 73 18 04/29/17 20:47 84/59 04/29/17 20:46 92 19 04/29/17 20:41 49 22 91/50 04/29/17 20:36 49 22 85/64 95 04/29/17 20:31 49 20 87/60 96 04/29/17 20:26 49 22 82/53 93 04/29/17 20:21 50 21 84/63 04/29/17 20:16 49 18 85/62 96 04/29/17 20:13 86/62 04/29/17 20:11 124 17 /40 04/29/17 20:06 50 17 77/58 95 04/29/17 20:01 51 18 86 04/29/17 20:00 83/59 04/29/17 19:56 50 19 97 04/29/17 19:51 49 20 99 04/29/17 19:46 104 19 8/7/17 19:41 50 18 96/57 92 87/17 19:39 78/64 87/17 19:36 78 26 94 8/7/17 19:32 108/70 8/7/17 19:32 135 108/70 8/7/17 19:31 149 22 95 87/17 19:26 154 27 105/87 97 8/7/17 19:22 95/77 87/17 19:21 101 12 93 87/17 19:16 148 17 97 87/17 19:15 146/79 87/17 19:11 154 27 113/82 95 87/17 19:06 149 16 98 87/17 19:01 186 15 94 87/17 18:59 98 Room Air 717 18:56 94 Room Air 87/17 18:56 150 22 91 87/17 18:56 96 Room Air 7/17 18:52 101/79 87/17 18:51 151 23 90/78 96 87/17 18:47 64/52 87/17 18:46 134 14 87 87/17 18:42 105/69 87/17 18:41 102 21 98 87/17 18:36 129 17 96/75 96 87/17 18:32 94/75 87/17 18:31 150 25 88/75 87/17 18:26 128 22 104/75 87/17 18:21 123 18 98/73 87/17 18:16 140 17 95/74 87/17 18:14 115/75 87/17 18:11 100 /71 87/17 18:07 91/56 87/17 18:06 132 21 87/17 18:02 95/67 87/17 18:01 113 21 87/17 17:59 98/70 87/17 17:56 113 8/7/17 17:56 113 19 87/17 17:51 113 20 88/65 8/7/17 17:49 100/61 87/17 17:46 120 20 84/70 8/7/17 17:41 120 22 92/71 87/17 17:38 106/80 04/29/17 17:37 100/79 100/85 04/29/17 17:36 150 29 04/29/17 17:31 150 18 04/29/17 17:16 150 04/29/17 17:11 150 19 04/29/17 17:09 159 04/29/17 16:34 153 16 101/78 100 Room Air Laboratory Results Last 24 Hours Test 04/29/17 17:15 04/29/17 17:16 04/29/17 22:04 04/29/17 23:13 Urine Color DK YELLOW Urine Appearance CLEAR Urine pH 5.0 Urine Specific [place] 1.025 Urine Protein 3+ Urine Glucose (UA) TRACE Urine Ketones TRACE Urine Occult Blood NEG Urine Nitrite NEG Urine Bilirubin NEG Urine Urobilinogen NEG Urine Leukocyte Esterase NEG Urine WBC (Auto) 1-5 /hpf Urine RBC (Auto) 5-10 /hpf Urine Hyaline Casts (Auto) 5-10 /lpf Urine Epithelial Cells (Auto) 10-20 /lpf Urine Bacteria (Auto) NEG Urine Pathogenic Casts 0-3 GRANULAR CASTS /lpf White Blood Count 8.07 K/uL Red Blood Count 4.17 M/uL Hemoglobin 12.0 g/dL Hematocrit 36.1 % Mean Corpuscular Volume 86.6 fL Mean Corpuscular Hemoglobin 28.8 pg Mean Corpuscular Hemoglobin Concent 33.2 g/dl Platelet Count 231 K/uL Mean Platelet Volume 11.0 fL Neutrophils (%) (Auto) 79.1 % Lymphocytes (%) (Auto) 12.0 % Monocytes (%) (Auto) 6.4 % Eosinophils (%) (Auto) 1.4 % Basophils (%) (Auto) 0.2 % Neutrophils # (Auto) 6.38 K/uL Lymphocytes # (Auto) 0.97 K/uL Monocytes # (Auto) 0.52 K/uL Eosinophils # (Auto) 0.11 K/uL Basophils # (Auto) 0.02 K/uL RDW Standard Deviation 43.9 fL RDW Coefficient of Variation 14.2 % Immature Granulocyte % (Auto) 0.9 % Immature Granulocyte # (Auto) 0.07 K/uL Prothrombin Time 13.2 SECONDS Prothromb Time International Ratio 1.2 Activated Partial Thromboplast Time 28.1 SECONDS Partial Thromboplastin Ratio 1.1 Sodium Level 135 mmol/L Potassium Level 4.5 mmol/L Chloride Level 97 mmol/L Carbon Dioxide Level 24 mmol/L Anion Gap 14.0 mmol/L Blood Urea Nitrogen 89 mg/dl Creatinine 6.30 mg/dl Est Creatinine Clear Calc Drug Dose 14.7 ml/min Estimated GFR () 10.1 Estimated GFR (Non- 8.7 BUN/Creatinine Ratio 13.9 Random Glucose 161 mg/dl Calcium Level 8.8 mg/dl Total Bilirubin 0.5 mg/dl Direct Bilirubin 0.2 mg/dl Aspartate Amino Transf (AST/SGOT) 15 U/L Alanine Aminotransferase (ALT/SGPT) 40 U/L Alkaline Phosphatase 207 U/L Total Creatine Kinase 75 U/L Creatine Kinase MB 3.7 ng/ml Creatine Kinase MB Ratio 4.9 Troponin I 0.041 ng/ml 0.040 ng/ml Pro-B-Type Natriuretic Peptide 32363 pg/ml Total Protein 7.8 gm/dl Albumin 3.5 gm/dl Lipase 188 U/L Bedside Glucose 226 mg/dl Magnesium Level 2.0 mg/dl Thyroid Stimulating Hormone (TSH) 1.240 uIu/ml Test 04/30/17 04:07 04/30/17 06:16 White Blood Count 11.06 K/uL Red Blood Count 4.05 M/uL Hemoglobin 11.7 g/dL Hematocrit 35.0 % Mean Corpuscular Volume 86.4 fL Mean Corpuscular Hemoglobin 28.9 pg Mean Corpuscular Hemoglobin Concent 33.4 g/dl Platelet Count 273 K/uL Mean Platelet Volume 11.7 fL Neutrophils (%) (Auto) 79.7 % Lymphocytes (%) (Auto) 11.8 % Monocytes (%) (Auto) 6.2 % Eosinophils (%) (Auto) 0.5 % Basophils (%) (Auto) 0.2 % Neutrophils # (Auto) 8.81 K/uL Lymphocytes # (Auto) 1.31 K/uL Monocytes # (Auto) 0.69 K/uL Eosinophils # (Auto) 0.05 K/uL Basophils # (Auto) 0.02 K/uL RDW Standard Deviation 44.1 fL RDW Coefficient of Variation 14.3 % Immature Granulocyte % (Auto) 1.6 % Immature Granulocyte # (Auto) 0.18 K/uL Activated Partial Thromboplast Time 54.1 SECONDS Partial Thromboplastin Ratio 2.1 Sodium Level 134 mmol/L Potassium Level 4.6 mmol/L Chloride Level 98 mmol/L Carbon Dioxide Level 21 mmol/L Anion Gap 15.0 mmol/L Blood Urea Nitrogen 93 mg/dl Creatinine 6.70 mg/dl Est Creatinine Clear Calc Drug Dose 14.0 ml/min Estimated GFR () 9.4 Estimated GFR (Non- 8.1 BUN/Creatinine Ratio 13.8 Random Glucose 178 mg/dl Calcium Level 8.6 mg/dl Phosphorus Level 7.2 mg/dl Troponin I 0.040 ng/ml Bedside Glucose 208 mg/dl Impression (1) Acute renal failure (2) Volume overload (3) CKD (chronic kidney disease) stage 4, GFR 15-29 ml/min (4) Anemia (5) Hyperphosphatemia (6) Metabolic acidosis (7) Atrial fibrillation with RVR Rubio is a 62-year-old gentlemen with them stage IV chronic kidney disease, hypertension, diabetes, coronary artery disease, CHF with right-sided heart failure admitted to the hospital with acute kidney injury, volume overload and atrial flutter with RVR. He has stage IV CKD secondary to diabetic nephropathy, baseline creatinine around 3.6. Currently he is rate controlled on Cardizem and on anticoagulation with heparin. At home he has been on Lasix 80 twice a day, Diuretics has been on hold since admission, has significant volume overload and renal function has been progressively worsening. Electrolyte including potassium and bicarbonate is acceptable. Acute kidney injury most likely secondary to cardiorenal syndrome type 1. Recommendations --give Lasix 120 mg IV x1 dose and then continue on 80 mg IV b.i.d. --hold further IV fluid --start on Tums 1 tablet with each meal --Increase calcitriol to 1 mcg 3 times a week --check iron study --currently electrolyte acceptable and no significant uremic symptoms --as patient currently has no emergency need for immediate dialysis, will continue on IV diuretics to improve volume status while monitor renal function and electrolyte --will schedule for PD catheter tomorrow and plan to start on urgent peritoneal dialysis 24 hours after placing the PD catheter. discussed in detail with the patient that patient will have to lie flat. Although patient has difficulty with lying flat mainly because of his restlessness, patient is agreeable to try. Will give him Ativan as needed for anxiety. --if electrolyte or volume status worsened further or patient is not able to tolerate PD, we may have to get a tunnel dialysis catheter and start on hemodialysis however, would like to avoid that if possible. Thank you for allowing me to participate in your patient's care. It was a pleasure to see Rubio This chart was completed utilizing [employer] Speech and voice recognition software. Grammatical errors, random word insertions, pronoun errors and incomplete sentences are occasional consequences of this system. Any questions or concerns about the content, text or information contained within the body of this dictation should be addressed directly to the physician for clarification.
--- NOTE | 2017-04-30 11:18 | Critical Care Consultation ---
Critical Care Consultation Date of Consultation: Apr 30, 2017. Attending Physician: Earle Herndon D.O. Reason for Consultation: Aflutter/with RVR History of Present Illness This is a 62 yo M with hx significant for Systolic CHF, CKD, Stage IV, CAD s/p CABG, poorly controlled T2DM, presenting with progressive LE Edema x 2 wks. Patient reports he was on Lasix and feels he was making urine but weight remained virtually unchanged. Patient initially presented to outpatient clinic with PCP and was found to have Atrial Flutter with RVR. He was subsequently sent to hospital for further He also reports ongoing dyspnea on exertion, orthopnea in addition to abdominal swelling. He denies Chest pain. In the ED; Atrial Flutter confirmed , rate was > 150. He was placed on cardizem. up to 15 mg/hr with persistent tachycardia in to the 120's to 140' s. Patient was also hypotensive with a systolic BP in the 70's to 90's. Upon admission , he was given IV Lopressor 2.5 mg, however , due to difficultly in controlling BP and rate control, patient was transferred to ICU. Past Medical/Surgical History PMH: CKD stage 4 diabetic polyneuropathy T2DM chronic systolic CHF - EF 25-30% - 09/2016 CAD s/p CABG x [address] [facility] [place] - 01/18/14; CABG was preceded by NSTEMI PAD Tobacco use Carotid stenosis PSH: CABG - 5-vessel - - 2013 Hernia repair (inguinal) Appendectomy CEA for carotid stenosis Family History No pertinent family history Fhx Lung cancer M: oral cancer F: hepatitis C Social History Smoking Status: Former Smoker Smokeless Tobacco Use: No Alcohol Use: none Drug Use: none Marital Status: Housing Status: lives with family Occupation Status: disabled Allergies Coded Allergies: No Known Allergies (Unverified , 04/29/17) Home Medications Scheduled Aspirin (Aspirin), 325 MG PO DAILY Calcitriol (Rocaltrol), 0.5 MCG PO 3XWK Carvedilol (Coreg), 6.25 MG PO BID Docusate Sodium (Colace), 100 MG PO HS Ergocalciferol (Vitamin D 64483 Unit), 50,000 UNIT PO WK Fenofibrate (Tricor ), 145 MG PO DAILY Fish Oil (Sawyer-3), 1 CAP PO DAILY Furosemide (Lasix), 120 MG PO TID Gabapentin (Neurontin), 300 MG PO BID Glyburide-Metformin (Glyburide/Metformin Hcl), 2 TAB PO BID Lactulose (Chronulac), 30 ML PO BID Lisinopril (Zestril), 20 MG PO DAILY Metolazone (Zaroxolyn), 5 MG PO MWF Nitroglycerin (Nitrostat), 0.4 MG UT PRN Current Inpatient Medications Current Inpatient Medications Medications (Trade) Dose Ordered Sig/Mikie Route Start Time Stop Time Status Last Admin Dose Admin Diltiazem HCl 125 mg/Dextrose 125 ml @ 0 mls/hr Q0M PRN IV 04/29/17 17:15 05/29/17 17:14 04/30/17 03:48 5 MLS/HR Acetaminophen (Tylenol Tab) 650 mg Q4H PRN PO 04/29/17 20:30 05/29/17 20:29 04/30/17 06:32 650 MG Ondansetron HCl (Zofran Inj) 4 mg Q6H PRN IV 04/29/17 20:30 05/29/17 20:29 Aspirin (Ecotrin Tab) 325 mg DAILY PO 04/30/17 09:00 05/30/17 08:59 04/30/17 09:03 325 MG Gabapentin (Neurontin Cap) 100 mg BID PO 04/29/17 21:00 05/29/17 20:59 04/30/17 09:03 100 MG Heparin Sodium/ Dextrose 500 ml @ 30 mls/hr [id number] PRN IV 04/29/17 21:00 05/29/17 20:59 Metoprolol Tartrate (Lopressor Iv) 2.5 mg Q4 PRN IV 04/29/17 21:00 05/29/17 20:59 04/30/17 05:17 2.5 MG Pramipexole Dihydrochloride (miraPEX TAB) 0.25 mg QAM PO 04/30/17 09:00 05/30/17 08:59 04/30/17 09:03 0.25 MG Miscellaneous Information (Consult Glycemic Management Pharmacy) 1 ea UD PRN N/A 04/30/17 08:38 05/30/17 08:37 Calcitriol (Rocaltrol Cap) 1 mcg MoWeFr@0900 PO 04/30/17 09:00 05/30/17 08:59 Calcium Carbonate (Tums Chew Tab) 500 mg AC PO 04/30/17 11:00 05/30/17 10:59 Furosemide 120 mg/ Syringe 12 ml @ 4 mls/min ONE ONCE IV 04/30/17 10:30 04/30/17 10:32 Furosemide 80 mg/ Syringe 8 ml @ 4 mls/min BID IV 04/30/17 21:00 05/30/17 20:59 Insulin Glargine (Lantus Solostar Pen) 10 units BID SC 04/30/17 10:30 05/30/17 10:29 Insulin Aspart (novoLOG ASPART) SLIDING SCALE G... Q6 SC 04/30/17 12:00 05/30/17 11:59 Review of Systems Constitutional: + weakness, No fever, No chills Respiratory: + shortness of breath, + dyspnea on exertion, No cough Cardiovascular: + orthopnea, + edema, No chest pain, No palpitations Abdomen: No nausea, No vomiting, No diarrhea, No constipation Genitourinary - Male: No hematuria, No dysuria Integumentary: No rash, No itch Physical Exam Date Time Temp Pulse Resp B/P (MAP) Pulse Ox O2 Delivery O2 Flow Rate FiO2 04/30/17 10:17 66 16 78/63 (68) 93 Room Air 04/30/17 08:10 36.6 66 18 69/48 (55) 96 Nasal Cannula 2.0 04/30/17 08:03 66 16 68/34 (45) 97 Nasal Cannula 2.0 04/30/17 08:00 Nasal Cannula 2.0 04/30/17 07:39 66 21 93/65 (74) 95 Nasal Cannula 2.0 04/30/17 07:26 66 18 66/53 (57) 90 Nasal Cannula 2.0 04/30/17 07:02 69 20 93/67 (76) 90 Nasal Cannula 2.0 04/30/17 06:03 91 25 83/62 (71) 04/30/17 05:17 110 96/67 04/30/17 05:09 70 14 96/67 (80) 04/30/17 05:01 109 14 85/60 (73) 04/30/17 04:10 36.7 98 17 85/60 (73) 97 04/30/17 04:00 97 Nasal Cannula 04/30/17 03:12 98 16 86/59 (66) 98 04/30/17 02:11 98 20 94/59 (65) 97 04/30/17 01:01 97 20 95/59 (70) 99 04/30/17 00:22 90 16 97/69 (78) 100 04/30/17 00:01 97 18 89/64 (70) 99 04/29/17 23:59 97 Nasal Cannula 04/29/17 23:46 36.9 97 21 94/73 (88) 98 04/29/17 23:04 90 20 84/61 (66) 97 04/29/17 22:03 86 18 92/58 (60) 91 04/29/17 21:40 67 21 80/56 92 04/29/17 21:36 67 21 80/56 92 04/29/17 21:36 67 21 80/56 (65) 92 04/29/17 21:36 94 Room Air 04/29/17 21:35 36.6 64 20 80/56 93 Room Air 04/29/17 21:11 51 19 83/63 90 04/29/17 21:06 58 21 96 04/29/17 21:05 84/63 04/29/17 21:01 109 20 102/71 04/29/17 20:56 97 16 89/58 04/29/17 20:52 76/55 04/29/17 20:51 73 18 04/29/17 20:47 84/59 04/29/17 20:46 92 19 04/29/17 20:41 49 22 91/50 04/29/17 20:36 49 22 85/64 95 04/29/17 20:31 49 20 87/60 96 04/29/17 20:26 49 22 82/53 93 04/29/17 20:21 50 21 84/63 04/29/17 20:16 49 18 85/62 96 04/29/17 20:13 86/62 04/29/17 20:11 124 17 /40 04/29/17 20:06 50 17 77/58 95 04/29/17 20:01 51 18 86 04/29/17 20:00 83/59 04/29/17 19:56 50 19 97 8/7/17 19:51 49 20 99 8/7/17 19:46 104 19 8/7/17 19:41 50 18 96/57 92 87/17 19:39 78/64 87/17 19:36 78 26 94 8/7/17 19:32 108/70 8/7/17 19:32 135 108/70 8/7/17 19:31 149 22 95 87/17 19:26 154 27 105/87 97 87/17 19:22 95/77 87/17 19:21 101 12 93 87/17 19:16 148 17 97 87/17 19:15 146/79 87/17 19:11 154 27 113/82 95 87/17 19:06 149 16 98 87/17 19:01 186 15 94 87/17 18:59 98 Room Air 87/17 18:56 94 Room Air 04/29/17 18:56 150 22 91 87/17 18:56 96 Room Air 17 18:52 101/79 87/17 18:51 151 23 90/78 96 87/17 18:47 64/52 87/17 18:46 134 14 87 87/17 18:42 105/69 87/17 18:41 102 21 98 87/17 18:36 129 17 96/75 96 87/17 18:32 94/75 87/17 18:31 150 25 88/75 87/17 18:26 128 22 104/75 87/17 18:21 123 18 98/73 8/7/17 18:16 140 17 95/74 87/17 18:14 115/75 8/7/17 18:11 100 /71 8/7/17 18:07 91/56 87/17 18:06 132 21 87/17 18:02 95/67 87/17 18:01 113 21 8/7/17 17:59 98/70 87/17 17:56 113 8/7/17 17:56 113 19 87/17 17:51 113 20 88/65 87/17 17:49 100/61 8/7/17 17:46 120 20 84/70 04/29/17 17:41 120 22 92/71 04/29/17 17:38 106/80 04/29/17 17:37 100/79 100/85 04/29/17 17:36 150 29 04/29/17 17:31 150 18 04/29/17 17:16 150 04/29/17 17:11 150 19 04/29/17 17:09 159 04/29/17 16:34 153 16 101/78 100 Room Air GENERAL: alert, , no distress, non-toxic EYE EXAM: normal conjunctiva, PERRL and EOM's grossly intact OROPHARYNX: no exudate, no erythema, lips, buccal mucosa, and tongue normal and mucous membranes are moist NECK: supple, no nuchal rigidity, no adenopathy, non-tender LUNGS: Clear to auscultation. Normal chest wall mechanics HEART: no murmurs, S1 normal and S2 normal ABDOMEN: abdomen, distended, normo-active bowel sounds, no masses, no rebound or guarding. BACK: Back is symmetrical on inspection and there is no deformity, no midline tenderness, no CVA tenderness. SKIN: no rashes and no bruising UPPER EXTREMITIES: upper extremities are grossly normal. LOWER EXTREMITIES: 2+ Edema Sancho LE NEURO EXAM: Normal sensorium, cranial nerves II-XII grossly intact, normal speech, no gross weakness of arms, no gross weakness of legs. Laboratory Results Last 24 Hours Test 04/29/17 17:15 04/29/17 17:16 04/29/17 22:04 04/29/17 23:13 Urine Color DK YELLOW Urine Appearance CLEAR Urine pH 5.0 Urine Specific [place] 1.025 Urine Protein 3+ Urine Glucose (UA) TRACE Urine Ketones TRACE Urine Occult Blood NEG Urine Nitrite NEG Urine Bilirubin NEG Urine Urobilinogen NEG Urine Leukocyte Esterase NEG Urine WBC (Auto) 1-5 /hpf Urine RBC (Auto) 5-10 /hpf Urine Hyaline Casts (Auto) 5-10 /lpf Urine Epithelial Cells (Auto) 10-20 /lpf Urine Bacteria (Auto) NEG Urine Pathogenic Casts 0-3 GRANULAR CASTS /lpf White Blood Count 8.07 K/uL Red Blood Count 4.17 M/uL Hemoglobin 12.0 g/dL Hematocrit 36.1 % Mean Corpuscular Volume 86.6 fL Mean Corpuscular Hemoglobin 28.8 pg Mean Corpuscular Hemoglobin Concent 33.2 g/dl Platelet Count 231 K/uL Mean Platelet Volume 11.0 fL Neutrophils (%) (Auto) 79.1 % Lymphocytes (%) (Auto) 12.0 % Monocytes (%) (Auto) 6.4 % Eosinophils (%) (Auto) 1.4 % Basophils (%) (Auto) 0.2 % Neutrophils # (Auto) 6.38 K/uL Lymphocytes # (Auto) 0.97 K/uL Monocytes # (Auto) 0.52 K/uL Eosinophils # (Auto) 0.11 K/uL Basophils # (Auto) 0.02 K/uL RDW Standard Deviation 43.9 fL RDW Coefficient of Variation 14.2 % Immature Granulocyte % (Auto) 0.9 % Immature Granulocyte # (Auto) 0.07 K/uL Prothrombin Time 13.2 SECONDS Prothromb Time International Ratio 1.2 Activated Partial Thromboplast Time 28.1 SECONDS Partial Thromboplastin Ratio 1.1 Sodium Level 135 mmol/L Potassium Level 4.5 mmol/L Chloride Level 97 mmol/L Carbon Dioxide Level 24 mmol/L Anion Gap 14.0 mmol/L Blood Urea Nitrogen 89 mg/dl Creatinine 6.30 mg/dl Est Creatinine Clear Calc Drug Dose 14.7 ml/min Estimated GFR () 10.1 Estimated GFR (Non- 8.7 BUN/Creatinine Ratio 13.9 Random Glucose 161 mg/dl Calcium Level 8.8 mg/dl Total Bilirubin 0.5 mg/dl Direct Bilirubin 0.2 mg/dl Aspartate Amino Transf (AST/SGOT) 15 U/L Alanine Aminotransferase (ALT/SGPT) 40 U/L Alkaline Phosphatase 207 U/L Total Creatine Kinase 75 U/L Creatine Kinase MB 3.7 ng/ml Creatine Kinase MB Ratio 4.9 Troponin I 0.041 ng/ml 0.040 ng/ml Pro-B-Type Natriuretic Peptide 00920 pg/ml Total Protein 7.8 gm/dl Albumin 3.5 gm/dl Lipase 188 U/L Bedside Glucose 226 mg/dl Magnesium Level 2.0 mg/dl Thyroid Stimulating Hormone (TSH) 1.240 uIu/ml Test 04/30/17 04:07 04/30/17 06:16 White Blood Count 11.06 K/uL Red Blood Count 4.05 M/uL Hemoglobin 11.7 g/dL Hematocrit 35.0 % Mean Corpuscular Volume 86.4 fL Mean Corpuscular Hemoglobin 28.9 pg Mean Corpuscular Hemoglobin Concent 33.4 g/dl Platelet Count 273 K/uL Mean Platelet Volume 11.7 fL Neutrophils (%) (Auto) 79.7 % Lymphocytes (%) (Auto) 11.8 % Monocytes (%) (Auto) 6.2 % Eosinophils (%) (Auto) 0.5 % Basophils (%) (Auto) 0.2 % Neutrophils # (Auto) 8.81 K/uL Lymphocytes # (Auto) 1.31 K/uL Monocytes # (Auto) 0.69 K/uL Eosinophils # (Auto) 0.05 K/uL Basophils # (Auto) 0.02 K/uL RDW Standard Deviation 44.1 fL RDW Coefficient of Variation 14.3 % Immature Granulocyte % (Auto) 1.6 % Immature Granulocyte # (Auto) 0.18 K/uL Activated Partial Thromboplast Time 54.1 SECONDS Partial Thromboplastin Ratio 2.1 Sodium Level 134 mmol/L Potassium Level 4.6 mmol/L Chloride Level 98 mmol/L Carbon Dioxide Level 21 mmol/L Anion Gap 15.0 mmol/L Blood Urea Nitrogen 93 mg/dl Creatinine 6.70 mg/dl Est Creatinine Clear Calc Drug Dose 14.0 ml/min Estimated GFR () 9.4 Estimated GFR (Non- 8.1 BUN/Creatinine Ratio 13.8 Random Glucose 178 mg/dl Calcium Level 8.6 mg/dl Phosphorus Level 7.2 mg/dl Iron Level 71 mcg/dl Total Iron Binding Capacity 309 mcg/dl Transferrin 233 mg/dl Transferrin % Saturation 22 % Ferritin 265.7 ng/ml Troponin I 0.040 ng/ml Bedside Glucose 208 mg/dl Assessment & Plan Systolic CHF, CKD, Stage IV, CAD s/p CABG, poorly controlled T2DM, presenting with progressive LE Edema x 2 wks admitted with Aflutter with RVR , Hypotension SENIOR INVESTMENT ANALYST/Neuro: Diabetic Neuropathy GCS: 15 Neuropathic pain control: continue Neurontin Suspected Restless Leg syndrome: Pramipexole started Respiratory: saturating well on 2L NC Chest X-ray: Moderate cardiomegaly. Otherwise negative study. HOB up 30 degrees: Yes Cardiovascular: Hx Systolic CHF, Hx CAD s/p CABG, Atrial Flutter CV drips: Cardizem drip Rhythm: Atrial Flutter, rate controlled with Cardizem, rate in the 60's EK/ , Atrial Flutter, HR 148 Fluids/Renal: Acute on CKD stage III, Cr. 6.7, Baseline 2-4 IV Fluids: Fluids from intravenous medications Antony: Order Bladder scan Patient refusing Antony catheter Nephrology consulted: will need dialysis, Patient prefers PD due to transportation issued from home PD catheter to be placed tmr with subsequent dialysis Give 120 mg Lasix today GI/Nutrition: Feeding: NPO after midnight prior to procedure (PD Cath placement) Bowel Movements: yes Endocrine: Last 24 hour glucose: Ranging 160's to 170's Glycemic Consult Hematology: Hemoglobin 11.7 DVT prophylaxis: Heparin Infectious Disease/Immunology: Tmax: 36.7, no leukocytosis MRSA: swab Positive Attending note, the pt was seen, examined independently, chart reviewed, further details per Dr. Deluca note, appreciate his assistance. the pt admitted overnight with hypotension and afib with RVR, he is non compliant with his meds, stopped taking Coumadin two weeks ago, presented with worsening renal function , fluid overload and vasculopathy due to severe PAD. overnight the pt started on dilt drip and heparin drip, and remains stable, agitated at times, expressing polyuria. asymptomatic today, slight lightheadedness complained to the nurses, ambulatory , no chest pain or SOB, increased leg edema. neuro is non focal. labs reviewed showing increased bun creat, slight trop leak, stbale K and Co2. A/P: 1- CKD V. 2- A fib , non compliant with meds. at least Coumadin. 3- PAD. 4- CAD/ CABG. 5- RLS in the face of CKD. Plan: 1- continue Coreg. 2- appreciate Dr. Ballesteros input. will stop dilt drip. 3- the pt is mentating very well, it is extremely difficult to measure accurate BP by cuff. 4- no need for pressors. 5- continue heparin drip. 6- discussed with Dr. Max, appreciate her input. planned for PD per pt choice. 7- surgical consult for PD catheter placement. 8- diuretic challenge ordered by Dr. Max. 9- start Pramipexole for RLS with CKD. 10- continue the rest of his meds. 11- telemetry floor placement. 12- oral intake. renal diet. 13- no skin issues. 14- discussed with the staff on rounds in details. CCT 45 min. Resident Tracking Resident Involvement: Resident Care Provided Care Provided: Adult [facility] Medicine
--- NOTE | 2017-04-30 11:30 | CARDIOLOGY CONSULTATION ---
DATE OF CONSULTATION: 04/30/2017 DATE OF CONSULTATION: 04/30/2017 PERTINENT HISTORY: Mr. Montgomery is a 62-year-old male admitted yesterday from his PCP's office with atrial flutter and rapid ventricular response along with acute on chronic renal failure. This consultation was ordered to assist in his cardiac management. Of note, patient has seen Dr. Goyal in the outpatient setting. The patient's recent history began several weeks ago when he began to note increased lower extremity edema, exertional dyspnea, increasing abdominal girth, and several episodes of PND. The patient admits to noncompliance with his medications. He presented to Dr. Rodriguez yesterday and his atrial dysrhythmia was discomfort. He was sent directly to the Emergency Room for further care. The patient admits to noncompliance with his medications. He does not mention which medications specifically he has been avoiding. She has not experienced palpitations, syncope, presyncope, or claudication. His cardiac history began in October of 2002 when he presented with a non-ST elevation ME. He had a cardiac catheterization performed and PCI done on the distal LAD. The patient did well until 01/18/2014 when he underwent 5-vessel bypass procedure in [place]. This included an IBRAHIM to the LAD, SVG to diagonal branch, and a sequential SVG to OM2, OM4, and the PDA. The patient also carries a history of an ischemic cardiomyopathy with an ejection fraction of approximately 30%. Most recent echocardiogram was performed in September of this year which noted an ejection fraction of 30% with LAD wall motion abnormality and global hypokinesis. There is also mild mitral regurgitation. Currently, the patient is resting comfortably in the bedside chair without complaints of chest pain, dyspnea, or palpitations. PAST MEDICAL HISTORY: 1. Coronary artery disease. 2. Non-ST elevation myocardial infarction -- 10/2002. 3. PCI distal LAD -- 10/2002. 4. CABG x5 -- December 2013 -- see above. 5. Ischemic cardiomyopathy -- ejection fraction 30%. 6. Chronic systolic congestive heart failure. 7. Peripheral vascular disease -- status post carotid endarterectomy. 8. Diabetes mellitus. 9. Diabetic polyneuropathy. 10. Chronic renal failure. 11. Inguinal hernia repair. 12. Appendectomy. 13. GERD. MEDICATIONS: 1. Heparin drip. 2. Diltiazem drip. 3. Lasix 120 mg IV x1. 4. Aspirin 325 mg daily. 5. Neurontin 100 mg b.i.d. 6. Rocaltrol 0.5 mcg 3 times weekly. USUAL OUTPATIENT MEDICATIONS: 1. Carvedilol 6.25 mg b.i.d. 2. Zestril 20 mg daily. 3. Metolazone 5 mg Saturday, Saturday, Saturday. 4. Lasix 20 mg t.i.d. 5. Aspirin 325 mg per day. 6. Tricor 145 mg daily. 7. Fish oil 1 tablet daily. 8. Lactulose 30 mL b.i.d. 9. Rocaltrol 0.5 mcg 3 times weekly. 10. Neurontin 100 mg b.i.d. ALLERGIES: None. SOCIAL HISTORY: The patient is and lives with his . Quit tobacco use 5 years ago. Has a fifteen pack year history. Does not use alcohol. FAMILY HISTORY: Mother from head and neck cancer. Father from complications of hepatitis C. REVIEW OF SYSTEMS: A 10-point review of systems is negative except for that described above. PHYSICAL EXAMINATION: GENERAL: This is a well-developed, well-nourished white count seated in bedside chair without complaints. VITAL SIGNS: Blood pressure is 100/50 with a regular pulse of 66. Respiratory rate is 18. The patient is afebrile at 36.6 degrees Celsius. Saturations 96% on 2 liters nasal cannula. HEAD, EYES, EARS, NOSE, AND THROAT: Exam is negative. NECK: Supple with full carotid upstrokes. No obvious bruits. Jugular venous pressure is 10 cm water at 90 degrees. There is no thyromegaly. CARDIOVASCULAR EXAMINATION: Reveals a regular rhythm with distant heart sounds. No obvious murmurs. LUNGS: Clear without rales, rhonchi, or wheezes. ABDOMEN: Obese without bruits. EXTREMITIES: Reveal tense woody edema distal to the knees bilaterally. 1+ pitting edema is noted of the thighs and the sacrum. LABORATORY DATA: CBC notes a hemoglobin 11.7, hematocrit 35.0, white count 11.06, and platelet count 273,000. Electrolytes note a sodium of 134, potassium 4.6, chloride 98, bicarb 21, BUN 93, creatinine 6.7, glucose 178. Three troponin I levels are normal at 0.041, 0.04 and 0.04. CK 75 with an MB fraction of 3.7. BNP is elevated at 18,015. INR is 1.2. PTT is 54.1. EKG notes atrial flutter with variable conduction, left axis deviation, and nonspecific ST and T-wave abnormality. Chest x-ray notes cardiomegaly but no failure. IMPRESSION: Mr. Montgomery was admitted with atrial flutter with a rapid ventricular response. Heart rate is now well controlled with the use of intravenous diltiazem and p.r.n. dosing of intravenous metoprolol. We could follow 1 of 2 strategies with his atrial flutter. As he has likely been in this for several weeks, he will require anticoagulation therapy. A conservative route would be to start Coumadin and after 3 weeks, consider chemical versus electrical cardioversion. Should he develop difficulty with atrial flutter, we could consider ROBERTO directed cardioversion. Clearly, the patient is hypervolemic suggested by his physical examination. Diuretic management per Dr. Max. PLAN: 1. Agree with intravenous heparinization. 2. Agree with intravenous Diltiazem. 3. Could consider use of intravenous digoxin if needed for heart rate control. 4. Could consider cardioversion if necessary. 5. Further recommendations depending on his clinical course.
--- NOTE | 2017-04-30 11:47 | Pharmacy Progress Note ---
Glycemic Control Intl Consult Date of Service Apr 30, 2017. Scope Glycemic Pharmacist consulted by Dr Cota on 04/30/17 for glycemic control and to write orders per [facility] inpatient glycemic control protocol. Objective Weight (Kilograms): 99.300 Accuchecks BSG (last 24hrs): Test 04/29/17 17:16 04/29/17 22:04 04/30/17 04:07 04/30/17 06:16 Random Glucose 161 mg/dl (70-99) 178 mg/dl (70-99) Bedside Glucose 226 mg/dl (70-99) 208 mg/dl (70-99) Laboratory Data (last 24hrs) Test 04/29/17 17:16 04/30/17 04:07 Anion Gap 14.0 mmol/L 15.0 mmol/L BUN/Creatinine Ratio 13.9 13.8 Blood Urea Nitrogen 89 mg/dl 93 mg/dl Creatinine 6.30 mg/dl 6.70 mg/dl Potassium Level 4.5 mmol/L 4.6 mmol/L Sodium Level 135 mmol/L 134 mmol/L White Blood Count 8.07 K/uL 11.06 K/uL Red Blood Count 4.17 M/uL 4.05 M/uL Hemoglobin 12.0 g/dL 11.7 g/dL Hematocrit 36.1 % 35.0 % Mean Corpuscular Volume 86.6 fL 86.4 fL Mean Corpuscular Hemoglobin 28.8 pg 28.9 pg Mean Corpuscular Hemoglobin Concent 33.2 g/dl 33.4 g/dl Platelet Count 231 K/uL 273 K/uL Mean Platelet Volume 11.0 fL 11.7 fL Neutrophils (%) (Auto) 79.1 % 79.7 % Lymphocytes (%) (Auto) 12.0 % 11.8 % Monocytes (%) (Auto) 6.4 % 6.2 % Eosinophils (%) (Auto) 1.4 % 0.5 % Basophils (%) (Auto) 0.2 % 0.2 % Neutrophils # (Auto) 6.38 K/uL 8.81 K/uL Lymphocytes # (Auto) 0.97 K/uL 1.31 K/uL Monocytes # (Auto) 0.52 K/uL 0.69 K/uL Eosinophils # (Auto) 0.11 K/uL 0.05 K/uL Basophils # (Auto) 0.02 K/uL 0.02 K/uL Recent Pertinent Medications Outpatient Anti-diabetic Regimen: * Glyburide/Metformin 5/500mg, 2 tabs PO BID * A1c = pending with tomorrow's am labs (09/18/16 6.0%) * However, A1c is somewhat unreliable in ESRD patients d/t interactions between the A1c analyzing technique and high levels of urea in ESRD, reduced RBC life span, iron deficiency anemia, and EPO administration. HbA1c > 7.5% in ESRD patient may overestimate the extent of hyperglycemia in ESRD patients. Risk Factors for Insulin Resistance: * IVF: Cardizem gtt, Heparin gtt (both mixed in dextrose) * Diet: NPO Assessment & Plan ASSESSMENT: * Mr Montgomery is a 62yo diabetic male, admitted with ARF/A Flutter. PMH is significant for chronic systolic CHF, CAD s/p CABG (multiple), CKD stage 4, and recent worsening LE edema/dyspnea. * Patient reports non-compliance with diabetic medications and does not check his blood sugars at home. * Patient has been hyperglycemic since admitted last evening, so Lantus initiated this morning at a conservative dose. * ADA & AACE recommend a goal blood sugar range 140-180 mg/dl for the majority of critically ill & non-critically ill patients. However, more stringent targets may be selected in individual cases. PLAN FOR INPATIENT GLYCEMIC CONTROL: * Holding outpatient oral diabetes medications * Patient reports that he is non-compliant with these meds at home anyway. * Basal insulin with LANTUS 10 units SQ BID * based on weight and stress level ~1 * Hold for BSG less than 120mg/dL * Correctional Insulin with NOVOLOG per scale ACHS or Q6hrs while NPO * Goal Range: Low 120 mg/dL - High 160 mg/dL * Correction Factor: 30 mg/dL/unit * Nutritional / Prandial insulin per carb ratio -- will consider adding when diet is advanced * Please note that the plan above was derived based on current level of insulin resistance and hospital stress. These recommendations are appropriate for inpatient admission only. Plan of care upon discharge will need to be reassessed to avoid potential outpatient hypo/hyperglycemia. Thank you.
[2017-04-30] MEDS ORDERED: NURSING VERBAL MED ORDER ONE ×2 (12:00→12:30)
[2017-04-30] MEDS ORDERED: INSULIN ASPART 100 UNITS/ML 3 ML PEN SC SCH (12:00)
[2017-04-30] MEDS: CARVEDILOL 6.25 MG TAB PO SCH ×2 (12:33→21:00)
[2017-04-30] MEDS ORDERED: CARVEDILOL 6.25 MG TAB PO ONE (13:00)
--- NOTE | 2017-04-30 15:00 | ECHOCARDIOGRAM REPORT ---
*NOTICE TO RECEIVING REPUBLICAN AGENCY This information is strictly Confidential and protected under [place] law. [place] law prohibits you from making any further disclosure of this information unless further disclosure is expressly permitted by the written consent of the person to whom it pertains or is authorized by law. A general authorization for the release of medical or other information is not sufficient for this purpose. Hospital accepts no responsibility if the information is made available to any other person, INCLUDING THE PATIENT. Interpretation Summary * Name: RUBINA SALAZAR Study Date: 04/30/2017 06:52 AM BP: 96/67 mmHg * Patient Location: .MSICU\S\E109\S\1 HR: 67 * : 1955 (M/d/yyyy) Gender: Male Height: 71 in * Age: 62 yrs Ethnicity: [place] Weight: 215 lb * Ordering Physician: Leroy Bustillo * Referring Physician: Tomás Rodriguez * Performed By: [facility] * * Reason For Study: A-Flutter * BSA: 2.2 m2 * Severe left ventricular systolic dysfunction. * Moderate to severe right ventricular systolic dysfunction. * Mild biventricular dilatation. * Moderate biatrial dilatation. * Mild mitral regurgitation. * Mild tricuspid regurgitation. Procedure Details * A complete two-dimensional transthoracic echocardiogram was performed (2D, M-mode, Doppler and color flow Doppler). * There were technical limitations due to patient'spoor positioning Left Ventricle * The left ventricle is borderline dilated. * There is normal left ventricular wall thickness. * Left ventricular systolic function is severely reduced. * Ejection Fraction = 20-25%. * There is severe global hypokinesis of the left ventricle. Right Ventricle * The right ventricle is mildly dilated. * The right ventricular systolic function is reduced as assessed by tricuspid annular plane systolic excursion (TAPSE) (TAPSE <1.6 cm). * The right ventricular systolic function is moderate to severely reduced. Atria * The left atrium is moderately dilated. * The right atrium is moderately dilated. Mitral Valve * The mitral valve leaflets appear normal. There is no evidence of stenosis, fluttering, or prolapse. * There is no mitral valve stenosis. * There is mild mitral regurgitation. Tricuspid Valve * The tricuspid valve is not well visualized, but is grossly normal. * There is no tricuspid stenosis. * There is mild tricuspid regurgitation. * Right ventricular systolic pressure is normal. Aortic Valve * The aortic valve is trileaflet. * The aortic valve opens well. Great Vessels * The aortic root is normal size. * Normal inferior vena cava diameter and respiratory variation suggests normal central venous pressure. MMode 2D Measurements and Calculations IVSd 0.95 cm IVSs 1.1 cm LVIDd 5.6 cm LVIDs 5.1 cm LVPWd 1.0 cm LVPWs 1.1 cm IVS/LVPW 0.95 FS 9.5 % EDV(Teich) 153.1 ml ESV(Teich) 121.6 ml EF(Teich) 20.6 % EDV(cubed) 174.8 ml ESV(cubed) 129.6 ml EF(cubed) 25.9 % % IVS thick 20.2 % % LVPW thick 6.0 % LV mass(C)d 213.4 grams LV mass(C)dI 98.1 grams/m\S\2 LV mass(C)s 212.9 grams LV mass(C)sI 97.9 grams/m\S\2 CO(Teich) 2.1 l/min CI(Teich) 0.97 l/min/m\S\2 SV(Teich) 31.5 ml SI(Teich) 14.5 ml/m\S\2 CO(cubed) 3.0 l/min CI(cubed) 1.4 l/min/m\S\2 SV(cubed) 45.2 ml SI(cubed) 20.8 ml/m\S\2 Ao root diam 3.2 cm Ao root area 8.2 cm\S\2 ACS 1.9 cm LA dimension 5.0 cm asc Aorta Diam 3.1 cm LA/Ao 1.5 LVAd ap4 42.1 cm\S\2 LVLd ap4 9.0 cm EDV(MOD-sp4) 160.0 ml LVAs ap4 35.9 cm\S\2 LVLs ap4 8.5 cm ESV(MOD-sp4) 124.0 ml EF(MOD-sp4) 22.5 % LVAd ap2 41.3 cm\S\2 LVLd ap2 8.9 cm EDV(MOD-sp2) 159.0 ml LVAs ap2 34.0 cm\S\2 LVLs ap2 8.8 cm ESV(MOD-sp2) 108.0 ml EF(MOD-sp2) 32.1 % CO(MOD-sp4) 2.4 l/min CI(MOD-sp4) 1.1 l/min/m\S\2 SV(MOD-sp4) 36.0 ml SI(MOD-sp4) 16.6 ml/m\S\2 CO(MOD-sp2) 3.4 l/min CI(MOD-sp2) 1.6 l/min/m\S\2 SV(MOD-sp2) 51.0 ml SI(MOD-sp2) 23.5 ml/m\S\2 Doppler Measurements and Calculations MV E max aretha 91.8 cm/sec MV A max aretha 27.8 cm/sec MV E/A 3.3 MV P1/2t max aretha 97.3 cm/sec MV P1/2t 77.0 msec MVA(P1/2t) 2.9 cm\S\2 MV dec slope 370.1 cm/sec\S\2 MV dec time 0.17 sec Ao V2 max 63.5 cm/sec Ao max PG 1.6 mmHg Ao max PG (full) 1.2 mmHg LV V1 max PG 0.44 mmHg LV V1 max 33.2 cm/sec PA V2 max 44.1 cm/sec PA max PG 0.79 mmHg TR max aretha 187.7 cm/sec
[2017-04-30] MEDS: DIGOXIN IV 250 MCG in SYRINGE 9 ML IV SCH ×2 (15:44→21:10)
--- NOTE | 2017-04-30 19:41 | Progress Note ---
Progress Note Date of Service Apr 30, 2017. Progress Note Pt is scheduled for permcath placement with anesthesia tomorrow in the OR. Pt seen and interviewed. Multiple comorbodities including h/o MA s/p PCI and CABG x 5V, ischemic cardiomyopathy, CHF with EF: 20-25%, DM with neuropathy, who presented with renal failure. Risks and benefits discussed with patient and anesthesia consent was signed.
[2017-04-30] MEDS: FUROSEMIDE INJ 80 MG in SYRINGE 0 ML IV SCH (21:09)
--- NOTE | 2017-04-30 23:21 | Progress Note ---
Subjective Date of Service: Apr 30, 2017. Subjective Pt evaluation today including: conversation w/ patient, physical exam, chart review, lab review, review of studies, review of inpatient medication list Problem List Medical Problems: (1) Atrial fibrillation with RVR Status: Acute (2) Dehydration Status: Acute Review of Systems Constitutional: No fever, No sweats, No weight loss, No weakness Eyes: No worsening of vision, No eye pain, No redness, No discharge ENT: No hearing loss, No unusual epistaxis, No nasal symptoms, No sore throat Respiratory: No cough, No sputum, No wheezing, No shortness of breath, No dyspnea on exertion Cardiac: No chest pain, No orthopnea, No PND, No edema Abdomen: No pain, No nausea, No vomiting, No diarrhea Musculoskeletal: No joint pain, No muscle pain Male : No dysuria, No urinary frequency Neurologic: No memory loss, No paralysis, No weakness, No numbness/tingling Psychiatric: No depression symptoms, No anhedonism, No anxiety, No insomnia Endo: No fatigue Skin: No rash, No itch Objective Vital Signs Date Time Temp Pulse Resp B/P (MAP) Pulse Ox O2 Delivery O2 Flow Rate FiO2 04/30/17 22:21 84 21 87/70 (76) 95 Nasal Cannula 2.0 04/30/17 21:10 121 04/30/17 20:00 37.0 121 21 105/61 (76) 96 Nasal Cannula 2.0 04/30/17 20:00 96 Nasal Cannula 2.0 04/30/17 18:12 83 15 94/68 (77) 92 Nasal Cannula 2.0 04/30/17 17:07 104 21 139/74 (95) 92 Nasal Cannula 2.0 04/30/17 16:01 36.9 126 18 95/65 (75) 94 Nasal Cannula 2.0 04/30/17 16:00 Nasal Cannula 2.0 04/30/17 15:47 105 18 105/68 (80) 94 Nasal Cannula 2.0 04/30/17 15:44 106 04/30/17 15:02 120 22 83/69 (74) 93 Nasal Cannula 2.0 04/30/17 14:01 137 16 97/83 (88) 98 Nasal Cannula 2.0 04/30/17 13:01 127 12 111/70 (84) 99 Nasal Cannula 2.0 04/30/17 12:01 36.6 101 13 117/80 (92) 93 Nasal Cannula 2.0 04/30/17 12:00 Nasal Cannula 2.0 04/30/17 11:04 65 19 116/70 (85) 95 Nasal Cannula 2.0 04/30/17 10:17 66 16 78/63 (68) 93 Room Air 04/30/17 08:10 36.6 66 18 69/48 (55) 96 Nasal Cannula 2.0 04/30/17 08:03 66 16 68/34 (45) 97 Nasal Cannula 2.0 04/30/17 08:00 Nasal Cannula 2.0 04/30/17 07:39 66 21 93/65 (74) 95 Nasal Cannula 2.0 04/30/17 07:26 66 18 66/53 (57) 90 Nasal Cannula 2.0 04/30/17 07:02 69 20 93/67 (76) 90 Nasal Cannula 2.0 04/30/17 06:03 91 25 83/62 (71) 04/30/17 05:17 110 96/67 04/30/17 05:09 70 14 96/67 (80) 04/30/17 05:01 109 14 85/60 (73) 04/30/17 04:10 36.7 98 17 85/60 (73) 97 04/30/17 04:00 97 Nasal Cannula 04/30/17 03:12 98 16 86/59 (66) 98 04/30/17 02:11 98 20 94/59 (65) 97 04/30/17 01:01 97 20 95/59 (70) 99 04/30/17 00:22 90 16 97/69 (78) 100 04/30/17 00:01 97 18 89/64 (70) 99 04/29/17 23:59 97 Nasal Cannula 04/29/17 23:46 36.9 97 21 94/73 (88) 98 Physical Exam General Appearance: WD/WN, no apparent distress Eyes: normal inspection, PERRL, EOMI, sclerae normal Neck: supple, no adenopathy, thyroid normal, no JVD Respiratory/Chest: chest non-tender, lungs clear, normal breath sounds, no respiratory distress Cardiovascular: no edema, no gallop, no JVD, no murmur Abdomen: non tender, soft, no organomegaly Extremities: non-tender, normal inspection, no pedal edema Neurologic/Psychiatric: alert, normal mood/affect, oriented x 3 Skin: warm/dry, no rash Lymphatic: no adenopathy Laboratory Results Last 24 Hours Test 04/30/17 04:07 04/30/17 06:16 04/30/17 11:54 04/30/17 15:41 White Blood Count 11.06 K/uL Red Blood Count 4.05 M/uL Hemoglobin 11.7 g/dL Hematocrit 35.0 % Mean Corpuscular Volume 86.4 fL Mean Corpuscular Hemoglobin 28.9 pg Mean Corpuscular Hemoglobin Concent 33.4 g/dl Platelet Count 273 K/uL Mean Platelet Volume 11.7 fL Neutrophils (%) (Auto) 79.7 % Lymphocytes (%) (Auto) 11.8 % Monocytes (%) (Auto) 6.2 % Eosinophils (%) (Auto) 0.5 % Basophils (%) (Auto) 0.2 % Neutrophils # (Auto) 8.81 K/uL Lymphocytes # (Auto) 1.31 K/uL Monocytes # (Auto) 0.69 K/uL Eosinophils # (Auto) 0.05 K/uL Basophils # (Auto) 0.02 K/uL RDW Standard Deviation 44.1 fL RDW Coefficient of Variation 14.3 % Immature Granulocyte % (Auto) 1.6 % Immature Granulocyte # (Auto) 0.18 K/uL Activated Partial Thromboplast Time 54.1 SECONDS Partial Thromboplastin Ratio 2.1 Sodium Level 134 mmol/L Potassium Level 4.6 mmol/L Chloride Level 98 mmol/L Carbon Dioxide Level 21 mmol/L Anion Gap 15.0 mmol/L Blood Urea Nitrogen 93 mg/dl Creatinine 6.70 mg/dl Est Creatinine Clear Calc Drug Dose 14.0 ml/min Estimated GFR () 9.4 Estimated GFR (Non- 8.1 BUN/Creatinine Ratio 13.8 Random Glucose 178 mg/dl Calcium Level 8.6 mg/dl Phosphorus Level 7.2 mg/dl Iron Level 71 mcg/dl Total Iron Binding Capacity 309 mcg/dl Transferrin 233 mg/dl Transferrin % Saturation 22 % Ferritin 265.7 ng/ml Troponin I 0.040 ng/ml Bedside Glucose 208 mg/dl 238 mg/dl 183 mg/dl Test 04/30/17 17:25 04/30/17 20:08 Bedside Glucose 169 mg/dl Assessment and Plan 62yo male with h/o chronic systolic CHF - EF 25-30%, CKD stage 4, CAD s/p CABG, PAD, and uncontrolled T2DM presenting with acute renal failure and rapid a. flutter. 1. a. flutter - I looked through his inpatient records and [employer] records and could not find definitively if he has had a. flutter or fib in the past. Rates better controlled with cardizem infusion and PRN IV lopressor. Will continue the cardizem for now and lopressor prn. Heparin drip has been cotninued Cardiology consulted and digoxin added as well Echo pending 2. acute renal failure in the setting of CKD stage 4 - he appears mildly volume overloaded (mainly right-sided signs) and is mildly acidotic. Potassium is normal. In light of his known systolic CHF additional IVF is not an option. Nephrology consulted IV lasix started Place [facility]. 3. T2DM - novolog sliding scale for now. Oral agents discontinued. 4. PAD - noted; continue aspirin. Records suggest he has been intolerant to all statins. 5. DVT proph - heparin infusion. 6. chronic systolic CHF - last known EF 25-50% on echo 09/2016. Repeat echo in am. He appears mildly volume overloaded but fortunately O2 sats are normal. 7. diabetic neuropathy - will continue the gabapentin but reduce the dose to 100mg BID in light of his acute renal failure. 8. CAD with prior CABG - serial troponins to r/o ACS. Cont aspirin. Low-dose beta brenda if BP can tolerate.
[2017-05-01] VITALS (78 sets, daily range): BP systolic 4–138; BP diastolic 43–98; PULSE 49–157; TEMP 36.5–37; O2SAT 87–98; Ht 180.3 cm; Wt 97.0 kg
[2017-05-01] MEDS: METOPROLOL TARTRATE 1 MG/ML VIAL IV PRN ×2 (04:22→10:01)
[2017-05-01 05:25] LABS: BASO % 0.1 %; BASO ABS # 0.01 K/uL (0-0.2); COMPLETE YES; EOS % 1.9 %; HEMATOCRIT 35.4 % (42-52); LYMPH % 8.9 %; LYMPH ABS # 0.86 K/uL (1.2-3.4); MEAN CELL VOLUME 85.5 fL (80-100); MEAN CORPUSCULAR HEMOGLOBIN 28.3 pg (25-34); MEAN CORPUSCULAR HGB CONC 33.1 g/dl (32-36); MEAN PLATELET VOLUME 10.8 fL (7.4-10.4); MONO % 6.9 %; NEUT % 81.2 %; PLATELET COUNT 239 K/uL (130-400); RED BLOOD COUNT 4.14 M/uL (4.7-6.1); WHITE BLOOD COUNT 9.62 K/uL (4.8-10.8)
[2017-05-01 05:47] LABS: PARTIAL THROMBOPLASTIN RATIO 2.5
[2017-05-01] MEDS ORDERED: CEFAZOLIN IV 2,000 MG/60 ML D5W IV ONE ×2 (06:00→12:48)
[2017-05-01] MEDS: INSULIN ASPART 100 UNITS/ML 3 ML PEN SC SCH ×4 (06:24→21:00)
[2017-05-01] MEDS: HEPARIN 25,000 UNIT/500ML D5W 500 ML IV PRN ×2 (06:27→15:59)
[2017-05-01] MEDS: CALCIUM CARBONATE 500 MG CHEWABLE PO SCH ×3 (06:28→16:01)
[2017-05-01 06:29] LABS: BUN/CREATININE RATIO 14.2 (10-20); CALCIUM 8.7 mg/dl (8.5-10.1); CREATININE 7.3 mg/dl (0.60-1.40); POTASSIUM 4.1 mmol/L (3.5-5.1)
[2017-05-01 08:04] LABS: ESTIMATED AVERAGE GLUCOSE 214 mg/dl; HA1C FLAG Normal (Normal)
[2017-05-01 08:44] LABS: HEPATITIS B AB NEG
[2017-05-01] MEDS: FUROSEMIDE INJ 80 MG in SYRINGE 0 ML IV SCH ×2 (08:52→20:42)
[2017-05-01] MEDS: ASPIRIN 325 MG ECTAB PO SCH (08:53)
[2017-05-01] MEDS: CALCITRIOL 0.25 MCG CAP PO SCH (08:54)
[2017-05-01] MEDS: PRAMIPEXOLE DIHYDROCHLORIDE 0.25MG TAB PO SCH (08:54)
[2017-05-01] MEDS: CARVEDILOL 6.25 MG TAB PO SCH ×2 (08:55→20:45)
[2017-05-01] MEDS: GABAPENTIN 100 MG CAP PO SCH ×2 (08:55→20:44)
[2017-05-01] MEDS ORDERED: CALCITRIOL 0.25 MCG CAP PO SCH (09:00)
[2017-05-01] MEDS: INSULIN GLARGINE SOLOSTAR 100 UNITS/ML 3 ML PEN SC SCH (09:00)
--- NOTE | 2017-05-01 09:35 | CARDIOLOGY PROGRESS NOTE ---
DATE: 05/01/2017 DATE: 05/01/2017 SUBJECTIVE: Mr. Montgomery is resting comfortably in the bedside chair without complaints of chest pain, dyspnea, or palpitations. He is angered over his p.o. status. He is to have a PermCath and PD catheter placed later today by Dr. Gaston. OBJECTIVE: VITAL SIGNS: Blood pressure is 110/80 with an irregular pulse of 80. Respiratory rate is 16. The patient is afebrile at 37.0 degrees Celsius. Saturations 94% on room air. NECK: Supple with full carotid upstrokes. No obvious bruits. Jugular venous pressure is 10 cm of water at 90 degrees. There is no thyromegaly. CARDIOVASCULAR EXAMINATION: Reveals an irregular rhythm with distant heart sounds. No obvious murmurs. LUNGS: Clear without rales, rhonchi, or wheezes. ABDOMEN: Obese without bruits. EXTREMITIES: Reveal tense woody edema distal to the knees bilaterally. 1+ pitting edema is noted to the thigh and sacrum. LABORATORY DATA: CBC notes hemoglobin 11.7, hematocrit 35.4, white count 9.6, platelet count 239,000. Electrolytes note a sodium of 135, potassium 4.1, chloride 97, bicarbonate 22, BUN 103, creatinine 7.3, glucose 76. PTT is 65.1. athletic monitor notes atrial fibrillation with a variable ventricular response. Echocardiogram notes severe left ventricular dysfunction with an ejection fraction of 20-25%. There is severe global hypokinesis. Right ventricle is also dilated and demonstrates reduced systolic function. There is mild mitral and tricuspid regurgitation. IMPRESSION AND PLAN: 1. Atrial flutter -- with a variable ventricular response. Heart rate controlled with the use of intravenous diltiazem, metoprolol tartrate, and digoxin. Will have to use digoxin with care realizing his renal insufficiency. No need for cardioversion at this time as the patient is hemodynamically stable. 2. Acute on chronic systolic congestive heart failure -- volume will be managed with dialysis. 3. Coronary artery disease -- status post LAD PCI in October 2002. He had a 5-vessel CABG in December 2013. 4. Peripheral vascular disease -- status post carotid endarterectomy. 5. Diabetes mellitus. 6. Acute on chronic renal failure -- per Dr. Max.
[2017-05-01] MEDS ORDERED: NURSING VERBAL MED ORDER ONE ×4 (09:45→20:15)
--- NOTE | 2017-05-01 10:37 | Nephrology Progress Note ---
Nephrology Progress Note Date of Service May 01, 2017. Chief Complaint F/U for ESRD Subjective Rubio was seen and examined in his room this morning with his friend at bedside. He has been overall feeling the same, has been having urine output although not at as much with high dose of diuretics. Heart rate still running around 110-120. Denies any shortness of breath or chest pain. Renal function continues to worsen. Review of Systems A complete review of systems was performed. Pertinent positives are noted above. All other systems are negative. Vital Signs Last 8 Hrs Date Time Temp Pulse Resp B/P (MAP) Pulse Ox O2 Delivery O2 Flow Rate FiO2 05/01/17 06:01 49 16 109/79 (89) 94 Room Air 05/01/17 04:22 116 114/91 05/01/17 04:10 37.0 72 19 114/91 (99) 93 Room Air 05/01/17 04:00 96 Room Air 05/01/17 02:02 86 20 79/43 (55) 96 Room Air 05/01/17 00:29 37.0 84 21 126/55 95 Room Air Last Recorded Weight Weight (Kilograms): 99.300 Physical Exam GENERAL:middle aged male , AAA x 3, pleasant, healthy-appearing, not in any distress. NECK: Supple, no JVD. RESPIRATORY: Normal breathing efforts, no accessory muscle use, clear to auscultation bilaterally, no wheezes or rales. CARDIOVASCULAR: S1, S2 normal, rate rhythm regular. ABDOMEN: mildly distended, nontender, positive bowel sound EXTREMITY: 2+ tense lower extremity edema, left she in with skin break NEURO: speech fluent. PSYCHIATRY: Normal mood and judgment Family History No pertinent family history Social History Smokeless Tobacco Use: No Alcohol Use: none Drug Use: none Marital Status: Housing Status: lives with family Occupation: disabled Laboratory Results Past 24 Hours 05/01/17 05:14 Red Blood Count 4.14, Mean Corpuscular Volume 85.5, Mean Corpuscular Hemoglobin 28.3, Mean Corpuscular Hemoglobin Concent 33.1, Mean Platelet Volume 10.8, Neutrophils (%) (Auto) 81.2, Lymphocytes (%) (Auto) 8.9, Monocytes (%) (Auto) 6.9, Eosinophils (%) (Auto) 1.9, Basophils (%) (Auto) 0.1, Neutrophils # (Auto) 7.81, Lymphocytes # (Auto) 0.86, Monocytes # (Auto) 0.66, Eosinophils # (Auto) 0.18, Basophils # (Auto) 0.01 05/01/17 05:14 Test 04/30/17 11:54 04/30/17 15:41 04/30/17 20:08 05/01/17 05:14 Bedside Glucose 238 mg/dl (70-99) 183 mg/dl (70-99) 169 mg/dl (70-99) White Blood Count 9.62 K/uL (4.8-10.8) Red Blood Count 4.14 M/uL (4.7-6.1) Hemoglobin 11.7 g/dL (14.0-18.0) Hematocrit 35.4 % (42-52) Mean Corpuscular Volume 85.5 fL (80-100) Mean Corpuscular Hemoglobin 28.3 pg (25-34) Mean Corpuscular Hemoglobin Concent 33.1 g/dl (32-36) Platelet Count 239 K/uL (130-400) Mean Platelet Volume 10.8 fL (7.4-10.4) Neutrophils (%) (Auto) 81.2 % Lymphocytes (%) (Auto) 8.9 % Monocytes (%) (Auto) 6.9 % Eosinophils (%) (Auto) 1.9 % Basophils (%) (Auto) 0.1 % Neutrophils # (Auto) 7.81 K/uL (1.4-6.5) Lymphocytes # (Auto) 0.86 K/uL (1.2-3.4) Monocytes # (Auto) 0.66 K/uL (0.11-0.59) Eosinophils # (Auto) 0.18 K/uL (0-0.5) Basophils # (Auto) 0.01 K/uL (0-0.2) RDW Standard Deviation 43.1 fL (36.4-46.3) RDW Coefficient of Variation 14.2 % (11.5-14.5) Immature Granulocyte % (Auto) 1.0 % Immature Granulocyte # (Auto) 0.10 K/uL (0.00-0.02) Activated Partial Thromboplast Time 65.1 SECONDS (21.0-31.0) Partial Thromboplastin Ratio 2.5 Anion Gap 16.0 mmol/L (3-11) Est Creatinine Clear Calc Drug Dose 12.8 ml/min Estimated GFR () 8.5 Estimated GFR (Non- 7.3 BUN/Creatinine Ratio 14.2 (10-20) Estimated Average Glucose 214 mg/dl Hemoglobin A1c 9.1 % (4.5-5.6) Calcium Level 8.7 mg/dl (8.5-10.1) Phosphorus Level 8.0 mg/dl (2.5-4.9) Test 05/01/17 06:18 Bedside Glucose 85 mg/dl (70-99) Allergies Coded Allergies: No Known Allergies (Unverified , 04/29/17) Medications Current Inpatient Medications Medications (Trade) Dose Ordered Sig/Mikie Route Start Time Stop Time Status Last Admin Dose Admin Diltiazem HCl 125 mg/Dextrose 125 ml @ 0 mls/hr Q0M PRN IV 04/29/17 17:15 05/29/17 17:14 04/30/17 03:48 5 MLS/HR Acetaminophen (Tylenol Tab) 650 mg Q4H PRN PO 04/29/17 20:30 05/29/17 20:29 04/30/17 15:52 650 MG Ondansetron HCl (Zofran Inj) 4 mg Q6H PRN IV 04/29/17 20:30 05/29/17 20:29 Aspirin (Ecotrin Tab) 325 mg DAILY PO 04/30/17 09:00 05/30/17 08:59 04/30/17 09:03 325 MG Gabapentin (Neurontin Cap) 100 mg BID PO 04/29/17 21:00 05/29/17 20:59 04/30/17 21:09 100 MG Heparin Sodium/ Dextrose 500 ml @ 30 mls/hr [id number] PRN IV 04/29/17 21:00 05/29/17 20:59 05/01/17 06:27 30 MLS/HR Metoprolol Tartrate (Lopressor Iv) 2.5 mg Q4 PRN IV 04/29/17 21:00 05/29/17 20:59 05/01/17 04:22 2.5 MG Pramipexole Dihydrochloride (miraPEX TAB) 0.25 mg QAM PO 04/30/17 09:00 05/30/17 08:59 04/30/17 09:03 0.25 MG Miscellaneous Information (Consult Glycemic Management Pharmacy) 1 ea UD PRN N/A 04/30/17 08:38 05/30/17 08:37 Calcitriol (Rocaltrol Cap) 1 mcg MoWeFr@0900 PO 04/30/17 09:00 05/30/17 08:59 04/30/17 10:30 1 MCG Calcium Carbonate (Tums Chew Tab) 500 mg AC PO 04/30/17 11:00 05/30/17 10:59 05/01/17 06:28 500 MG Furosemide 80 mg/ Syringe 8 ml @ 4 mls/min BID IV 04/30/17 21:00 05/30/17 20:59 04/30/17 21:09 4 MLS/MIN Insulin Glargine (Lantus Solostar Pen) 10 units BID SC 04/30/17 10:30 05/30/17 10:29 04/30/17 21:13 10 UNITS Carvedilol (Coreg Tab) 6.25 mg BID PO 04/30/17 21:00 05/30/17 20:59 04/30/17 12:33 6.25 MG Insulin Aspart (novoLOG ASPART) SLIDING SCALE G... ACHS SC 04/30/17 16:00 05/30/17 11:59 04/30/17 21:15 1 UNITS Cefazolin Sodium 2000 mg/Dextrose 60 ml @ 120 mls/hr PREOP IV 05/01/17 06:00 05/01/17 14:00 Digoxin (Lanoxin Tab) 0.125 mg DAILY@16 PO 05/01/17 16:00 05/31/17 15:59 Impression (1) Acute renal failure (2) Volume overload (3) CKD (chronic kidney disease) stage 4, GFR 15-29 ml/min (4) Anemia (5) Hyperphosphatemia (6) Metabolic acidosis (7) Atrial fibrillation with RVR Rubio is a 62-year-old gentlemen with stage IV chronic kidney disease, hypertension, diabetes, coronary artery disease, CHF with EF 30% right-sided heart failure admitted to the hospital with acute kidney injury, volume overload and atrial flutter with RVR. He has stage IV CKD secondary to diabetic nephropathy, baseline creatinine around 3.6. Currently he is rate controlled on Cardizem and on anticoagulation with heparin. At home he has been on Lasix 80 twice a day, Diuretics has been on hold since admission, has significant volume overload and renal function has been progressively worsening. Electrolyte including potassium and bicarbonate is acceptable. Acute kidney injury most likely secondary to cardiorenal syndrome type 1. Has history of significant coronary artery disease previously had multiple stent and then had CABG done in 2013. Last EF 30 percent. currently on anticoagulation 8 heparin and Cardizem. Yesterday started on low-dose digoxin. Recommendations --schedule for tunnel dialysis catheter and PD catheter this afternoon. --plan for 1st dialysis treatment this afternoon for 2 hours and continue on hemodialysis for now at least for next 2 weeks. Will need to be monitored closely inpatient for next 2-3 days while on dialysis as patient may not tolerate dialysis with his continued AFib with RVR and heart rate going to 110- 20 frequently with relatively soft blood pressure. Had long discussion with patient and patient is agreeable to go to [facility] for short period of time for outpatient dialysis. Hopefully will be able to start to train for PD in 2 weeks. Will follow This chart was completed utilizing [employer] Speech and voice recognition software. Grammatical errors, random word insertions, pronoun errors and incomplete sentences are occasional consequences of this system. Any questions or concerns about the content, text or information contained within the body of this dictation should be addressed directly to the physician for clarification.
[2017-05-01] MEDS ORDERED: STOP HEPARIN ORDER ONE (11:00)
--- NOTE | 2017-05-01 11:57 | Progress Note ---
Progress Note Date of Service May 01, 2017. Progress Note Discussed plans with patient. At this time I would recommend placing a permcath , starting him on dialysis and then electively place the PD catheter in a week or two. That way he can train in pd and be in better fluid volume. Will place permcath today. I have discussed the risks options and benefits of the procedure with the patient. The patient understands the risks options and benefits and agrees to the procedure. I have examined the patient, reviewed the History & Physical and in the interval since the performance of the History & Physical I have noted the following changes of clinical significance: No changes noted
--- NOTE | 2017-05-01 12:12 | Critical Care Progress Note ---
Critical Care Progress Note Date of Service May 01, 2017. ICU Day ICU Day Number: [address] Shaikh Horowitz Overnight, patients was tachycardic up to to 125. He received 2 doses of IV Lopressor 2.5 mg in addition to home Coreg regimen. Patient remains on Cardizem drip and Digoxin. Patient denies Chest pain Objective GENERAL: alert, no distress, non-toxic NECK: supple, no nuchal rigidity, no adenopathy, non-tender LUNGS: Clear to auscultation. Normal chest wall mechanics HEART: no murmurs, S1 normal and S2 normal ABDOMEN: abdominal distension, normo-active bowel sounds, no masses, no rebound or guarding. UPPER EXTREMITIES: upper extremities are grossly normal. LOWER EXTREMITIES: 2+ Edema Bilateral LE NEURO EXAM: Normal sensorium, cranial nerves II-XII grossly intact, normal speech, no gross weakness of arms, no gross weakness of legs. Current SOFA Score SOFA Score Response (Comments) Value Platelets (x10) > 150 0 Bilirubin (mg/dL) < 1.2 0 Nebo Coma Score 15 0 Level of Hypotension No Hypotension 0 Creatinine (mg/dL) > 5.0 4 Total 4 Assessment & Plan Systolic CHF, CKD, Stage IV, CAD s/p CABG, poorly controlled T2DM, presenting with progressive LE Edema x 2 wks admitted with Aflutter with RVR , Hypotension STATION TENDER/Neuro: Diabetic Neuropathy GCS: 15 Neuropathic pain control: continue Neurontin Suspected Restless Leg syndrome: Pramipexole Respiratory: saturating well on RA Chest X-ray: Moderate cardiomegaly. Otherwise negative study. Cardiovascular: Hx Systolic CHF, Hx CAD s/p CABG, Atrial Flutter CV drips: Cardizem drip remains, Digoxin, s/p 2.5 mg Metoprolol x2 Rhythm: Atrial Flutter, rate controlled, Cardizem, EK/7 , Atrial Flutter, HR 148 Fluids/Renal: Acute on CKD stage III, Cr. 7.3<--6.7, Baseline 2-4 IV Fluids: Fluids from intravenous medications Antony: none PD catheter to be placed today GI/Nutrition: Feeding: NPO (PD Cath placement) Bowel Movements: yes Endocrine: Last 24 hour glucose: Ranging 76-178 Glycemic Consult Hematology: Hemoglobin 11.7 DVT prophylaxis: Heparin Infectious Disease/Immunology: Tmax: 37.0, no leukocytosis MRSA: swab Positive Attending note, seen , examined separately, chart reviewed. for further details refer to the above note. 62, m, CKD, PAD, erroneously hypotensive ( cant measure accurate BP given his severe PAD). a flutter, on heparin drip, controlled with dilt and dig. seen by Dr. Franco and planned for HD tunneled catheter. asymptomatic today, VSS, S1S2 a flutter. sat 94% on RA. lungs are clear, abdomen is obese but benign. CC- , edema noted with PAD stasis. neuro is non focal. A/P: 1- CKD, needing dialysis, planned for HD post catheter placement. 2- a fib/flutter. with RVR. 3- PAD with poor peripheral circ. 4- DM. Plan: 1- NPO for tunneled catheter placement. 2- dig level. 3- continue dig. 4- continue dilt. 5- appreciate Dr. Franco and Dr. Max input. 6- agree with the rest of the treatment. 7- potential transfer to the regular floor with tele later. 8- continue heparin drip , stop it for 2 hrs prior to the procedure. 9- discussed in details with the pt and his family, with the staff on rounds, CCT 35 min. Consults & Procedures Consultants: Nephrology Cardiology Procedures: PermCath Data Medications: Current Inpatient Medications Medications (Trade) Dose Ordered Sig/Mikie Route Start Time Stop Time Status Last Admin Dose Admin Diltiazem HCl 125 mg/Dextrose 125 ml @ 0 mls/hr Q0M PRN IV 04/29/17 17:15 05/29/17 17:14 04/30/17 03:48 5 MLS/HR Acetaminophen (Tylenol Tab) 650 mg Q4H PRN PO 04/29/17 20:30 05/29/17 20:29 04/30/17 15:52 650 MG Ondansetron HCl (Zofran Inj) 4 mg Q6H PRN IV 04/29/17 20:30 05/29/17 20:29 Aspirin (Ecotrin Tab) 325 mg DAILY PO 04/30/17 09:00 05/30/17 08:59 05/01/17 08:53 325 MG Gabapentin (Neurontin Cap) 100 mg BID PO 04/29/17 21:00 05/29/17 20:59 05/01/17 08:55 100 MG Metoprolol Tartrate (Lopressor Iv) 2.5 mg Q4 PRN IV 04/29/17 21:00 05/29/17 20:59 05/01/17 10:01 2.5 MG Pramipexole Dihydrochloride (miraPEX TAB) 0.25 mg QAM PO 04/30/17 09:00 05/30/17 08:59 05/01/17 08:54 0.25 MG Miscellaneous Information (Consult Glycemic Management Pharmacy) 1 ea UD PRN N/A 04/30/17 08:38 05/30/17 08:37 Calcitriol (Rocaltrol Cap) 1 mcg MoWeFr@0900 PO 04/30/17 09:00 05/30/17 08:59 05/01/17 08:54 1 MCG Calcium Carbonate (Tums Chew Tab) 500 mg AC PO 04/30/17 11:00 05/30/17 10:59 05/01/17 06:28 500 MG Furosemide 80 mg/ Syringe 8 ml @ 4 mls/min BID IV 04/30/17 21:00 05/30/17 20:59 05/01/17 08:52 4 MLS/MIN Carvedilol (Coreg Tab) 6.25 mg BID PO 04/30/17 21:00 05/30/17 20:59 05/01/17 08:55 6.25 MG Insulin Aspart (novoLOG ASPART) SLIDING SCALE G... ACHS SC 04/30/17 16:00 05/30/17 11:59 04/30/17 21:15 1 UNITS Cefazolin Sodium 2000 mg/Dextrose 60 ml @ 120 mls/hr PREOP IV 05/01/17 06:00 05/01/17 14:00 Digoxin (Lanoxin Tab) 0.125 mg DAILY@16 PO 05/01/17 16:00 05/31/17 15:59 Insulin Glargine (Lantus Solostar Pen) 5 units BID SC 05/01/17 21:00 05/31/17 20:59 Vital Signs: Date Time Temp Pulse Resp B/P (MAP) Pulse Ox O2 Delivery O2 Flow Rate FiO2 05/01/17 10:26 52 19 90/70 (77) 97 8/9/17 10:25 50 16 05/01/17 10:21 98 21 100/76 (84) 05/01/17 10:20 50 19 96 05/01/17 10:17 98 20 97/78 (84) 05/01/17 10:15 97 16 05/01/17 10:10 97 19 05/01/17 10:06 49 19 93/69 (77) 95 05/01/17 10:05 49 17 95 05/01/17 10:01 98 4/69 (48) 97 05/01/17 10:01 50 17 94/69 (77) 98 05/01/17 10:01 117 118/98 05/01/17 10:00 52 18 97 05/01/17 09:57 118 16 118/98 (105) 05/01/17 09:55 125 18 118/98 (105) 97 Room Air 05/01/17 09:55 125 17 97 05/01/17 09:50 126 16 94 05/01/17 08:00 96 Room Air 05/01/17 06:01 49 16 109/79 (89) 94 Room Air 05/01/17 04:22 116 114/91 05/01/17 04:10 37.0 72 19 114/91 (99) 93 Room Air 05/01/17 04:00 96 Room Air 05/01/17 02:02 86 20 79/43 (55) 96 Room Air 05/01/17 00:29 37.0 84 21 126/55 95 Room Air 05/01/17 00:00 96 Room Air 05/01/17 00:00 36.9 96 21 117/65 (82) 96 Room Air 04/30/17 23:44 115 126/55 04/30/17 22:21 84 21 87/70 (76) 95 Nasal Cannula 2.0 04/30/17 21:10 121 04/30/17 20:00 37.0 121 21 105/61 (76) 96 Nasal Cannula 2.0 04/30/17 20:00 96 Nasal Cannula 2.0 04/30/17 18:12 83 15 94/68 (77) 92 Nasal Cannula 2.0 04/30/17 17:07 104 21 139/74 (95) 92 Nasal Cannula 2.0 04/30/17 16:01 36.9 126 18 95/65 (75) 94 Nasal Cannula 2.0 04/30/17 16:00 Nasal Cannula 2.0 04/30/17 15:47 105 18 105/68 (80) 94 Nasal Cannula 2.0 04/30/17 15:44 106 04/30/17 15:02 120 22 83/69 (74) 93 Nasal Cannula 2.0 04/30/17 14:01 137 16 97/83 (88) 98 Nasal Cannula 2.0 04/30/17 13:01 127 12 111/70 (84) 99 Nasal Cannula 2.0 04/30/17 12:01 36.6 101 13 117/80 (92) 93 Nasal Cannula 2.0 04/30/17 12:00 Nasal Cannula 2.0 Laboratory Results: Last 24 Hours Test 04/30/17 11:54 04/30/17 15:41 04/30/17 20:08 05/01/17 05:14 Bedside Glucose 238 mg/dl 183 mg/dl 169 mg/dl White Blood Count 9.62 K/uL Red Blood Count 4.14 M/uL Hemoglobin 11.7 g/dL Hematocrit 35.4 % Mean Corpuscular Volume 85.5 fL Mean Corpuscular Hemoglobin 28.3 pg Mean Corpuscular Hemoglobin Concent 33.1 g/dl Platelet Count 239 K/uL Mean Platelet Volume 10.8 fL Neutrophils (%) (Auto) 81.2 % Lymphocytes (%) (Auto) 8.9 % Monocytes (%) (Auto) 6.9 % Eosinophils (%) (Auto) 1.9 % Basophils (%) (Auto) 0.1 % Neutrophils # (Auto) 7.81 K/uL Lymphocytes # (Auto) 0.86 K/uL Monocytes # (Auto) 0.66 K/uL Eosinophils # (Auto) 0.18 K/uL Basophils # (Auto) 0.01 K/uL RDW Standard Deviation 43.1 fL RDW Coefficient of Variation 14.2 % Immature Granulocyte % (Auto) 1.0 % Immature Granulocyte # (Auto) 0.10 K/uL Activated Partial Thromboplast Time 65.1 SECONDS Partial Thromboplastin Ratio 2.5 Sodium Level 135 mmol/L Potassium Level 4.1 mmol/L Chloride Level 97 mmol/L Carbon Dioxide Level 22 mmol/L Anion Gap 16.0 mmol/L Blood Urea Nitrogen 103 mg/dl Creatinine 7.30 mg/dl Est Creatinine Clear Calc Drug Dose 12.8 ml/min Estimated GFR () 8.5 Estimated GFR (Non- 7.3 BUN/Creatinine Ratio 14.2 Random Glucose 76 mg/dl Estimated Average Glucose 214 mg/dl Hemoglobin A1c 9.1 % Calcium Level 8.7 mg/dl Phosphorus Level 8.0 mg/dl Hepatitis B Surface Antigen NEG Hepatitis B Surface Antibody NEG Test 05/01/17 06:18 05/01/17 09:27 Bedside Glucose 85 mg/dl Resident Tracking Resident Involvement: Resident Care Provided Care Provided: Adult Hospital Medicine
[2017-05-01] MEDS ORDERED: PROPOFOL IV EMULSION 10 MG/ML 20 ML VIAL IV ONE (12:22)
[2017-05-01] MEDS ORDERED: LIDOCAINE HCL 2% 2 ML VIAL (20MG/ML) ONE (12:22)
[2017-05-01] MEDS ORDERED: FENTANYL CITRATE INJ 50 MCG/1 ML 2 ML VIAL ONE (12:23)
[2017-05-01] MEDS ORDERED: MIDAZOLAM HCL 1 MG/ML 2ML VIAL ONE (12:23)
[2017-05-01] MEDS ORDERED: HEPARIN SOD (PORCINE) 5000 UNIT/ML 1 ML VIAL ONE (13:00)
[2017-05-01] MEDS: CEFAZOLIN IV 2,000 MG in DEXTROSE 5% 50ML 50 ML IV SCH ×2 (13:02→13:23)
[2017-05-01] MEDS ORDERED: DEXTROSE 50% 50 ML SYR ONE (13:15)
[2017-05-01] MEDS ORDERED: LIDOCAINE HCL 1% 20 ML VIAL INFIL ONE (13:17)
[2017-05-01] MEDS ORDERED: HEPARIN SOD (PORCINE) 5000 UNIT/ML 1 ML VIAL IV ONE (13:23)
--- NOTE | 2017-05-01 13:39 | [facility] Operative Report ---
Operative Report Operative Date May 01, 2017. Pre-Operative Diagnosis Actue Renal Failure Post-Operative Diagnosis Same Procedure(s) Performed Insertion of Perm Cath, Right Jugular Vein Apprroach Ultrasound Localization of Right Internal Jugular Vein Fluoscopy for Positioning Surgeon Marilin Staff Physician Surgeon(s) Donald Fernando Estimated Blood Loss 3 Findings tip in distal SVC Specimens None Anesthesia MAC Complication(s) None Disposition Recovery Room / PACU Indications Patient's a 62-year-old white male in need of dialysis for acute renal failure. PermCath was recommended, He understood the risks options benefits and agreed to go ahead with this procedure. Description of Procedure Patient was takent to the angio suite and placed in the supine position. The right side of the neck and chest wall were prepped and draped in a sterile manner. Local anesthesia was then administered to the appropriate areas of the neck and chest wall. Ultrasound was then used to locate the right internal jugular vein. The vein compressed easily, had no filing defects, and was patent. The vein was then punctured under direct ultrasound imaging. A guidewire was then passed centrally under fluoroscopic imaging. A stab wound was then made in the anterior chest wall and a 19cm permcath was passed from the stab wound on the chest wall to the puncture site on the neck. The puncture site was then dilated till the 14Fr peel away sheath was inserted. The permcath was then inserted through the sheath to a central position in the distal superior vena cava. The peel away sheath was then removed. The catheter was then sutured in place using nylon sutures. The puncture was then closed using a 4-0 Vicryl subcuticular suture. Dermabond was used for a dressing on the puncture site. Both ports aspirated and flushed easily and were then packed with heparin. A sterile dressing was applied to the catheter. The patient left the angio suite in good condition and tolerated the procedure well. I attest to the content of the Intraoperative Record and any orders documented therein. Any exceptions are noted below.
[2017-05-01] MEDS ORDERED: ONDANSETRON INJ 2 MG/ML 2 ML VIAL IV PRN (14:00)
[2017-05-01] MEDS ORDERED: ATROPINE SULFATE 0.1 MG/ML 5ML SYR IV PRN (14:00)
[2017-05-01] MEDS ORDERED: EpHEDrine SULFATE INJ 50 MG/ML AMP IV PRN (14:00)
[2017-05-01] MEDS ORDERED: FENTANYL CITRATE INJ 50 MCG/1 ML 2 ML VIAL IV PRN (14:00)
[2017-05-01] MEDS ORDERED: HYDROmorphone INJ 1 MG/ML SYR IV PRN (14:00)
--- NOTE | 2017-05-01 14:42 | Pharmacy Progress Note ---
Glycemic: Assessment & Plan Date of Service May 01, 2017. Assessment & Plan Outpatient Anti-diabetic Regimen: * Glyburide/Metformin 5/500mg, 2 tabs PO BID * A1c = 9.1% (05/01/17) * However, A1c is somewhat unreliable in ESRD patients d/t interactions between the A1c analyzing technique and high levels of urea in ESRD, reduced RBC life span, iron deficiency anemia, and EPO administration. HbA1c > 7.5% in ESRD patient may overestimate the extent of hyperglycemia in ESRD patients. ASSESSMENT: * Mr Montgomery is a 62yo diabetic male, admitted with ARF/A Flutter. PMH is significant for chronic systolic CHF, CAD s/p CABG (multiple), CKD stage 4, and recent worsening LE edema/dyspnea. * Patient reports non-compliance with diabetic medications and does not check his blood sugars at home. * Patient received 27 units of insulin yesterday and BSGs so far today have been 85, 75. * Will not order any additional Lantus at this time and will re-evaluate the need for additional basal insulin if patient becomes hyperglycemic again. * ADA & AACE recommend a goal blood sugar range 140-180 mg/dl for the majority of critically ill & non-critically ill patients. However, more stringent targets may be selected in individual cases. PLAN FOR INPATIENT GLYCEMIC CONTROL: * Holding outpatient oral diabetes medications * Patient reports that he is non-compliant with these meds at home anyway. * Basal insulin with LANTUS * Hold for now * Correctional Insulin with NOVOLOG per scale ACHS or Q6hrs while NPO * Goal Range: Low 140 mg/dL - High 180 mg/dL * Correction Factor: 30 mg/dL/unit * Nutritional / Prandial insulin per carb ratio -- will consider adding when diet is advanced * Please note that the plan above was derived based on current level of insulin resistance and hospital stress. These recommendations are appropriate for inpatient admission only. Plan of care upon discharge will need to be reassessed to avoid potential outpatient hypo/hyperglycemia. Thank you.
--- NOTE | 2017-05-01 15:52 | Anesthesiology Progress Note ---
Anesthesia Post Op Note Date & Time May 01, 2017 at 15:52 Vital Signs Pain Intensity: 0.0 Vital Signs Past 12 Hours Date Time Temp Pulse Resp B/P (MAP) Pulse Ox O2 Delivery O2 Flow Rate FiO2 05/01/17 14:50 111 18 90 05/01/17 14:40 36.8 105 18 92 05/01/17 14:37 69 18 126/71 (89) 93 05/01/17 14:35 108 15 93 05/01/17 14:34 36.8 105 17 121/76 93 Room Air 05/01/17 14:20 117 19 117/76 (90) 97 05/01/17 14:15 97 20 93 05/01/17 14:05 110 20 92 05/01/17 14:02 114 16 108/82 (91) 93 05/01/17 14:02 114 16 108/82 (91) 93 05/01/17 14:00 97 13 93 05/01/17 13:59 104 17 101/67 (78) 93 05/01/17 13:59 104 17 101/67 (78) 93 05/01/17 13:54 65 17 99/73 (82) 98 05/01/17 13:54 65 17 99/73 (82) 98 05/01/17 12:00 96 Room Air 05/01/17 12:00 36.7 98 18 110/76 (87) 98 05/01/17 10:26 52 19 90/70 (77) 97 05/01/17 10:25 50 16 05/01/17 10:21 98 21 100/76 (84) 05/01/17 10:20 50 19 96 05/01/17 10:17 98 20 97/78 (84) 05/01/17 10:15 97 16 05/01/17 10:10 97 19 05/01/17 10:06 49 19 93/69 (77) 95 05/01/17 10:05 49 17 95 05/01/17 10:01 98 4/69 (48) 97 05/01/17 10:01 50 17 94/69 (77) 98 05/01/17 10:01 117 118/98 05/01/17 10:00 52 18 97 05/01/17 09:57 118 16 118/98 (105) 05/01/17 09:55 125 18 118/98 (105) 97 Room Air 05/01/17 09:55 125 17 97 05/01/17 09:50 126 16 94 05/01/17 08:00 96 Room Air 05/01/17 06:01 49 16 109/79 (89) 94 Room Air 05/01/17 04:22 116 114/91 05/01/17 04:10 37.0 72 19 114/91 (99) 93 Room Air 05/01/17 04:00 96 Room Air Notes Mental Status: alert / awake / arousable, participated in evaluation Pt Amnestic to Procedure: No Nausea / Vomiting: adequately controlled Pain: adequately controlled Airway Patency, RR, SpO2: stable & adequate BP & HR: stable & adequate Hydration State: stable & adequate Anesthetic Complications: no major complications apparent amnestic level appropriate for MAC
[2017-05-01] MEDS: DIGOXIN 0.125 MG TAB PO SCH (16:00)
--- NOTE | 2017-05-01 17:39 | Progress Note ---
Subjective Date of Service: May 01, 2017. Subjective Pt evaluation today including: conversation w/ patient, physical exam, chart review, lab review, review of studies, review of inpatient medication list Problem List Medical Problems: (1) Atrial fibrillation with RVR Status: Acute (2) Dehydration Status: Acute Review of Systems Constitutional: No fever, No chills, No sweats, No weakness Respiratory: No cough, No sputum, No wheezing, No shortness of breath, No dyspnea on exertion Cardiac: No chest pain, No orthopnea, No PND, No edema Abdomen: No pain, No nausea, No vomiting, No diarrhea, No constipation Musculoskeletal: No joint pain, No muscle pain, No swelling, No calf pain Male : No dysuria, No urinary frequency Neurologic: No memory loss, No paralysis, No weakness, No numbness/tingling Psychiatric: No depression symptoms, No anhedonism, No anxiety, No insomnia Endo: No fatigue, No excessive thirst Skin: No rash, No itch Objective Vital Signs Date Time Temp Pulse Resp B/P (MAP) Pulse Ox O2 Delivery O2 Flow Rate FiO2 05/01/17 17:29 36.5 120 105/81 (89) 05/01/17 17:10 120 05/01/17 17:05 114 15 105/81 (89) 95 05/01/17 16:46 144 14 138/80 (99) 87 05/01/17 16:45 121 14 96 05/01/17 16:30 144 15 96 05/01/17 16:30 144 15 96 05/01/17 16:15 115 20 95 05/01/17 16:06 94 12 112/67 (82) 05/01/17 16:06 94 12 112/67 (82) 05/01/17 16:02 56 16 (45) 97 05/01/17 16:02 56 (45) 97 05/01/17 16:00 93 Room Air 05/01/17 16:00 36.5 63 17 97 05/01/17 16:00 63 17 97 05/01/17 16:00 94 05/01/17 15:45 96 25 92 05/01/17 15:32 75 17 106/73 (84) 92 05/01/17 15:32 75 17 106/73 (84) 92 05/01/17 15:30 96 20 91 05/01/17 15:30 96 20 91 05/01/17 15:15 99 14 92 05/01/17 15:02 105 18 96/55 (69) 05/01/17 15:02 105 18 96/55 (69) 05/01/17 15:00 110 17 92 05/01/17 15:00 110 17 92 05/01/17 14:50 111 18 90 05/01/17 14:45 110 14 92 05/01/17 14:40 36.8 105 18 92 05/01/17 14:37 69 18 126/71 (89) 93 05/01/17 14:37 69 18 126/71 (89) 93 05/01/17 14:37 69 18 126/71 (89) 93 05/01/17 14:35 108 15 93 05/01/17 14:34 36.8 105 17 121/76 93 Room Air 05/01/17 14:30 109 16 92 05/01/17 14:30 109 16 92 05/01/17 14:20 117 19 117/76 (90) 97 05/01/17 14:15 97 20 93 05/01/17 14:15 97 20 93 05/01/17 14:05 110 20 92 05/01/17 14:02 114 16 108/82 (91) 93 05/01/17 14:02 36.8 114 16 108/82 (91) 93 05/01/17 14:02 114 16 108/82 (91) 93 05/01/17 14:00 97 13 93 05/01/17 14:00 97 13 93 05/01/17 13:59 104 17 101/67 (78) 93 05/01/17 13:59 104 17 101/67 (78) 93 05/01/17 13:59 104 17 101/67 (78) 93 05/01/17 13:54 65 17 99/73 (82) 98 05/01/17 13:54 65 17 99/73 (82) 98 05/01/17 13:54 65 17 99/73 (82) 98 05/01/17 12:00 96 Room Air 05/01/17 12:00 36.7 98 18 110/76 (87) 98 05/01/17 10:26 52 19 90/70 (77) 97 05/01/17 10:25 50 16 05/01/17 10:21 98 21 100/76 (84) 05/01/17 10:20 50 19 96 05/01/17 10:17 98 20 97/78 (84) 05/01/17 10:15 97 16 05/01/17 10:10 97 19 05/01/17 10:06 49 19 93/69 (77) 95 05/01/17 10:05 49 17 95 05/01/17 10:01 98 4/69 (48) 97 05/01/17 10:01 50 17 94/69 (77) 98 05/01/17 10:01 117 118/98 05/01/17 10:00 52 18 97 05/01/17 09:57 118 16 118/98 (105) 05/01/17 09:55 125 18 118/98 (105) 97 Room Air 05/01/17 09:55 125 17 97 05/01/17 09:50 126 16 94 05/01/17 08:00 96 Room Air 05/01/17 06:01 49 16 109/79 (89) 94 Room Air 05/01/17 04:22 116 114/91 05/01/17 04:10 37.0 72 19 114/91 (99) 93 Room Air 05/01/17 04:00 96 Room Air 05/01/17 02:02 86 20 79/43 (55) 96 Room Air 05/01/17 00:29 37.0 84 21 126/55 95 Room Air 05/01/17 00:00 96 Room Air 05/01/17 00:00 36.9 96 21 117/65 (82) 96 Room Air 04/30/17 23:44 115 126/55 04/30/17 22:21 84 21 87/70 (76) 95 Nasal Cannula 2.0 04/30/17 21:10 121 04/30/17 20:00 37.0 121 21 105/61 (76) 96 Nasal Cannula 2.0 04/30/17 20:00 96 Nasal Cannula 2.0 04/30/17 18:12 83 15 94/68 (77) 92 Nasal Cannula 2.0 Physical Exam General Appearance: WD/WN, no apparent distress Eyes: normal inspection, PERRL, EOMI, sclerae normal Neck: supple, no adenopathy, thyroid normal, no JVD Respiratory/Chest: chest non-tender, lungs clear, normal breath sounds, no respiratory distress Cardiovascular: regular rate, rhythm, no edema, no gallop, no JVD Abdomen: normal bowel sounds, non tender, soft, no organomegaly Neurologic/Psychiatric: no motor/sensory deficits, alert, normal mood/affect, oriented x 3 Skin: normal color, warm/dry, no rash Lymphatic: no adenopathy Laboratory Results Last 24 Hours Test 04/30/17 20:08 05/01/17 05:14 05/01/17 06:18 05/01/17 09:27 Bedside Glucose 169 mg/dl 85 mg/dl White Blood Count 9.62 K/uL Red Blood Count 4.14 M/uL Hemoglobin 11.7 g/dL Hematocrit 35.4 % Mean Corpuscular Volume 85.5 fL Mean Corpuscular Hemoglobin 28.3 pg Mean Corpuscular Hemoglobin Concent 33.1 g/dl Platelet Count 239 K/uL Mean Platelet Volume 10.8 fL Neutrophils (%) (Auto) 81.2 % Lymphocytes (%) (Auto) 8.9 % Monocytes (%) (Auto) 6.9 % Eosinophils (%) (Auto) 1.9 % Basophils (%) (Auto) 0.1 % Neutrophils # (Auto) 7.81 K/uL Lymphocytes # (Auto) 0.86 K/uL Monocytes # (Auto) 0.66 K/uL Eosinophils # (Auto) 0.18 K/uL Basophils # (Auto) 0.01 K/uL RDW Standard Deviation 43.1 fL RDW Coefficient of Variation 14.2 % Immature Granulocyte % (Auto) 1.0 % Immature Granulocyte # (Auto) 0.10 K/uL Activated Partial Thromboplast Time 65.1 SECONDS Partial Thromboplastin Ratio 2.5 Sodium Level 135 mmol/L Potassium Level 4.1 mmol/L Chloride Level 97 mmol/L Carbon Dioxide Level 22 mmol/L Anion Gap 16.0 mmol/L Blood Urea Nitrogen 103 mg/dl Creatinine 7.30 mg/dl Est Creatinine Clear Calc Drug Dose 12.8 ml/min Estimated GFR () 8.5 Estimated GFR (Non- 7.3 BUN/Creatinine Ratio 14.2 Random Glucose 76 mg/dl Estimated Average Glucose 214 mg/dl Hemoglobin A1c 9.1 % Calcium Level 8.7 mg/dl Phosphorus Level 8.0 mg/dl Hepatitis B Surface Antigen NEG Hepatitis B Surface Antibody NEG Digoxin Level 1.1 ng/ml Test 05/01/17 11:44 05/01/17 13:12 05/01/17 16:06 Bedside Glucose 75 mg/dl 81 mg/dl 136 mg/dl Assessment and Plan 62yo male with h/o chronic systolic CHF - EF 25-30%, CKD stage 4, CAD s/p CABG, PAD, and uncontrolled T2DM presenting with acute renal failure and rapid a. flutter. a. flutter - appropriately contolled on cardizem drip, metorpolol and digoxin Heparin drip has been continued Cardiology consulted and digoxin Echo pending chronic systolic CHF - last known EF 25-50% on echo 09/2016. Repeat echo in am. He appears mildly volume overloaded but fortunately O2 sats are normal. acute renal failure in the setting of CKD stage 4 - he appears mildly volume overloaded (mainly right-sided signs) and is mildly acidotic. Potassium is normal. Nephrology consulted Cont IV lasix Vascular surg consulted, will place permacath and possibly place PD cath in next 1-2 weeks T2DM - novolog sliding scale for now. Oral agents discontinued. PAD - noted; continue aspirin. Records suggest he has been intolerant to all statins. DVT proph - heparin infusion. Diabetic neuropathy - will continue the gabapentin but reduce the dose to 100mg BID in light of his acute renal failure. CAD with prior CABG - serial troponins to r/o ACS. Cont aspirin. Low-dose beta brenda if BP can tolerate.
[2017-05-01] MEDS: HYDROCODONE/ACETAMOPHEN 5/325MG TAB PO PRN (20:44)
[2017-05-01] MEDS ORDERED: INSULIN GLARGINE SOLOSTAR 100 UNITS/ML 3 ML PEN SC SCH (21:00)
[2017-05-01 21:30] LABS: PARTIAL THROMBOPLASTIN RATIO 2.3
[2017-05-02] VITALS (70 sets, daily range): BP systolic 61–108; BP diastolic 32–74; PULSE 72–151; TEMP 36.3–37.4; O2SAT 87–99
[2017-05-02 05:51] LABS: BASO % 0.3 %; BASO ABS # 0.02 K/uL (0-0.2); COMPLETE YES; EOS % 0.9 %; HEMATOCRIT 30.9 % (42-52); IG% 0.9 %; LYMPH % 9.1 %; LYMPH ABS # 0.62 K/uL (1.2-3.4); MEAN CELL VOLUME 86.1 fL (80-100); MEAN CORPUSCULAR HEMOGLOBIN 28.4 pg (25-34); MEAN PLATELET VOLUME 11.4 fL (7.4-10.4); MONO % 9.2 %; NEUT % 79.6 %; PLATELET COUNT 138 K/uL (130-400); RED BLOOD COUNT 3.59 M/uL (4.7-6.1); WHITE BLOOD COUNT 6.85 K/uL (4.8-10.8)
[2017-05-02 06:07] LABS: PARTIAL THROMBOPLASTIN RATIO 2.2
[2017-05-02] MEDS: CALCIUM CARBONATE 500 MG CHEWABLE PO SCH ×3 (06:08→16:10)
[2017-05-02] MEDS: INSULIN ASPART 100 UNITS/ML 3 ML PEN SC SCH ×4 (06:45→20:52)
[2017-05-02 06:51] LABS: BUN/CREATININE RATIO 13.3 (10-20); CALCIUM 8.1 mg/dl (8.5-10.1); CREATININE 6.4 mg/dl (0.60-1.40); PHOSPHORUS 6.9 mg/dl (2.5-4.9); POTASSIUM 3.8 mmol/L (3.5-5.1)
[2017-05-02] MEDS: HYDROCODONE/ACETAMOPHEN 5/325MG TAB PO PRN (07:54)
[2017-05-02] MEDS: HEPARIN 25,000 UNIT/500ML D5W 500 ML IV PRN (07:55)
[2017-05-02] MEDS: ASPIRIN 325 MG ECTAB PO SCH (07:57)
[2017-05-02] MEDS: PRAMIPEXOLE DIHYDROCHLORIDE 0.25MG TAB PO SCH (07:57)
[2017-05-02] MEDS: DOCUSATE SODIUM 100 MG CAP PO SCH ×2 (07:59→20:51)
[2017-05-02] MEDS: FUROSEMIDE INJ 80 MG in SYRINGE 0 ML IV SCH (08:05)
[2017-05-02] MEDS: GABAPENTIN 100 MG CAP PO SCH ×2 (08:07→20:51)
[2017-05-02] MEDS: CARVEDILOL 6.25 MG TAB PO SCH ×2 (08:07→20:51)
[2017-05-02] MEDS: IRON SUCROSE INJ 100 MG in SODIUM CHLORIDE 0.9% 100ML 100 ML IV SCH (09:36)
--- NOTE | 2017-05-02 09:49 | Critical Care Progress Note ---
Critical Care Progress Note Date of Service May 02, 2017. ICU Day ICU Day Number: [address] Cota Subjective Patient is s/p PermCath placement for dialysis as of yesterday. No acute events overnight. Patient did have some tachycardia up to 120's when he went to urinate however. He does report some pain at cath site. Objective GENERAL: alert, no distress, non-toxic NECK: supple, no nuchal rigidity, no adenopathy, non-tender LUNGS: Clear to auscultation. Normal chest wall mechanics HEART: no murmurs, S1 normal and S2 normal ABDOMEN: abdominal distension, normo-active bowel sounds, no masses, no rebound or guarding. UPPER EXTREMITIES: upper extremities are grossly normal. LOWER EXTREMITIES: 1+ Edema Bilateral LE NEURO EXAM: Normal sensorium, cranial nerves II-XII grossly intact, normal speech, no gross weakness of arms, no gross weakness of legs. 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 Otherwise negative study. Cardiovascular: Hx Systolic CHF, Hx CAD s/p CABG, Atrial Flutter CV drips: Digoxin, no longer on Cardizem Rhythm: Atrial Flutter, rate controlled EK/7 , Atrial Flutter, HR 148 Continue Coreg Fluids/Renal: Acute on CKD stage III, Cr. 6.4<--7.3<--6.7, Baseline 2-4 IV Fluids: Fluids from intravenous medications Antony: none s/p Permcath placement on 05/01 Dialyzed 05/01 with 700 ml out 1400 mls out from Urine, UO > .5 mls/kg/hr Dialysis scheduled today Per Nephrology will need HD for 2 wks, outpatient dialysis center at [place] chosen on discharge GI/Nutrition: Feeding: Renal Diet Stool Softener: Colace Endocrine: Last 24 hour glucose: Ranging 76-124 Glycemic Consult Hematology: Hemoglobin 10.2 DVT prophylaxis: Heparin infusion Infectious Disease/Immunology: afebrile with Tmax: 36.6, no leukocytosis MRSA: swab positive Hep B S Antigen, Hep B S Ab neg. , Hep B Core Ab neg Disposition: Plan for step down to Tele PT/OT Attending add, seen , examined independently , chart reviewed in round in details. received the first dialysis dose yesterday, tunneled catheter in place appreciate Dr. Max and Dr. Franco input. no events overnight. agree with the above plan. transfer to regular floor when bed is available, bare in mind, BP can not be measured accurately in this pt. ot pt, oral intake, disposition plan as above. Consults & Procedures Consultants: Nephrology Cardiology Procedures: PermCath Data Medications: Current Inpatient Medications Medications (Trade) Dose Ordered Sig/Mikie Route Start Time Stop Time Status Last Admin Dose Admin Diltiazem HCl 125 mg/Dextrose 125 ml @ 0 mls/hr Q0M PRN IV 04/29/17 17:15 05/29/17 17:14 04/30/17 03:48 5 MLS/HR Acetaminophen (Tylenol Tab) 650 mg Q4H PRN PO 04/29/17 20:30 05/29/17 20:29 04/30/17 15:52 650 MG Ondansetron HCl (Zofran Inj) 4 mg Q6H PRN IV 04/29/17 20:30 05/29/17 20:29 Aspirin (Ecotrin Tab) 325 mg DAILY PO 04/30/17 09:00 05/30/17 08:59 05/02/17 07:57 325 MG Gabapentin (Neurontin Cap) 100 mg BID PO 04/29/17 21:00 05/29/17 20:59 05/02/17 08:07 100 MG Metoprolol Tartrate (Lopressor Iv) 2.5 mg Q4 PRN IV 04/29/17 21:00 05/29/17 20:59 05/01/17 10:01 2.5 MG Pramipexole Dihydrochloride (miraPEX TAB) 0.25 mg QAM PO 04/30/17 09:00 05/30/17 08:59 05/02/17 07:57 0.25 MG Miscellaneous Information (Consult Glycemic Management Pharmacy) 1 ea UD PRN N/A 04/30/17 08:38 05/30/17 08:37 Calcitriol (Rocaltrol Cap) 1 mcg MoWeFr@0900 PO 04/30/17 09:00 05/30/17 08:59 05/01/17 08:54 1 MCG Calcium Carbonate (Tums Chew Tab) 500 mg AC PO 04/30/17 11:00 05/30/17 10:59 05/02/17 06:08 500 MG Furosemide 80 mg/ Syringe 8 ml @ 4 mls/min BID IV 04/30/17 21:00 05/30/17 20:59 05/02/17 08:05 4 MLS/MIN Carvedilol (Coreg Tab) 6.25 mg BID PO 04/30/17 21:00 05/30/17 20:59 05/02/17 08:07 6.25 MG Insulin Aspart (novoLOG ASPART) SLIDING SCALE G... ACHS SC 04/30/17 16:00 05/30/17 11:59 04/30/17 21:15 1 UNITS Digoxin (Lanoxin Tab) 0.125 mg DAILY@16 PO 05/01/17 16:00 05/31/17 15:59 05/01/17 16:00 0.125 MG Heparin Sodium/ Dextrose 500 ml @ 30 mls/hr [id number] PRN IV 05/01/17 15:45 05/31/17 15:44 05/02/17 07:55 30 MLS/HR Acetaminophen/ Hydrocodone Bitart (Maxie 5/325 Tab) 1 tab Q4H PRN PO 05/01/17 20:30 05/15/17 20:29 05/02/17 07:54 1 TAB Docusate Sodium (coLACE CAP) 100 mg BID PO 05/02/17 09:00 06/01/17 08:59 05/02/17 07:59 100 MG Iron Sucrose 100 mg/Sodium Chloride 105 ml @ 420 mls/hr DAILY@0900 IV 05/02/17 09:00 05/04/17 09:14 Vital Signs: Date Time Temp Pulse Resp B/P (MAP) Pulse Ox O2 Delivery O2 Flow Rate FiO2 05/02/17 08:00 37.1 100 89/32 (51) 94 Room Air 05/02/17 08:00 94 Room Air 05/02/17 06:01 96 18 108/53 (71) 93 Room Air 05/02/17 05:09 92 22 82/56 (65) 05/02/17 05:03 82 19 70/58 (62) 05/02/17 04:01 36.6 105 16 91/66 (74) 96 Nasal Cannula 05/02/17 04:00 Room Air 05/02/17 03:01 100 18 90/69 (76) 97 05/02/17 02:01 99 20 91/72 (78) 97 05/02/17 01:01 113 20 95/63 (74) 94 05/02/17 00:01 36.5 119 16 85/58 (67) 92 05/01/17 23:59 Room Air 05/01/17 23:01 114 20 86/62 (70) 05/01/17 22:01 88 20 99/58 (72) 89 05/01/17 21:01 106 18 95/67 (76) 91 05/01/17 20:04 36.5 147 14 99/69 (79) 95 05/01/17 20:00 Room Air 05/01/17 19:46 153 122/74 (90) 87 05/01/17 19:31 108 17 107/77 (87) 94 05/01/17 19:25 36.6 110 100/71 (81) 05/01/17 19:17 113 20 100/71 (81) 95 05/01/17 19:01 113 16 102/76 (85) 90 05/01/17 19:00 119 102/76 05/01/17 18:45 120 93/77 05/01/17 18:31 84 16 100/81 (87) 92 05/01/17 18:30 123 16 93 05/01/17 18:30 90 100/81 05/01/17 18:16 118 15 110/73 (85) 94 05/01/17 18:15 92 110/73 05/01/17 18:11 118 16 101/79 (86) 93 05/01/17 18:04 116 101/79 05/01/17 18:01 121 17 65/48 (54) 92 05/01/17 18:00 112 65/48 05/01/17 18:00 157 17 91 05/01/17 17:47 99 17 87/60 (69) 94 05/01/17 17:45 142 17 91/81 (84) 93 05/01/17 17:45 124 87/60 05/01/17 17:30 116 96/71 05/01/17 17:30 132 22 94 05/01/17 17:29 36.5 120 105/81 (89) 05/01/17 17:21 99 20 96/71 (79) 95 05/01/17 17:15 116 96/71 05/01/17 17:10 120 05/01/17 17:05 114 15 105/81 (89) 95 05/01/17 17:01 135 19 105/81 (89) 91 05/01/17 17:00 138 17 92 05/01/17 16:46 144 14 138/80 (99) 87 05/01/17 16:46 144 14 138/80 (99) 87 05/01/17 16:45 121 14 96 05/01/17 16:30 144 15 96 05/01/17 16:30 144 15 96 05/01/17 16:30 144 15 96 05/01/17 16:15 115 20 95 05/01/17 16:06 94 12 112/67 (82) 05/01/17 16:06 94 12 112/67 (82) 05/01/17 16:06 94 12 112/67 (82) 05/01/17 16:02 56 16 /67 (45) 97 05/01/17 16:02 56 16 /67 (45) 97 05/01/17 16:02 56 16 /67 (45) 97 05/01/17 16:00 63 17 97 05/01/17 16:00 93 Room Air 05/01/17 16:00 36.5 63 17 97 05/01/17 16:00 63 17 97 05/01/17 16:00 94 05/01/17 15:45 96 25 92 05/01/17 15:32 75 17 106/73 (84) 92 05/01/17 15:32 75 17 106/73 (84) 92 05/01/17 15:32 75 17 106/73 (84) 92 05/01/17 15:30 96 20 91 05/01/17 15:30 96 20 91 05/01/17 15:30 96 20 91 05/01/17 15:15 99 14 92 05/01/17 15:02 105 18 96/55 (69) 05/01/17 15:02 105 18 96/55 (69) 05/01/17 15:00 110 17 92 05/01/17 15:00 110 17 92 05/01/17 14:50 111 18 90 05/01/17 14:45 110 14 92 05/01/17 14:40 36.8 105 18 92 05/01/17 14:37 69 18 126/71 (89) 93 05/01/17 14:37 69 18 126/71 (89) 93 05/01/17 14:37 69 18 126/71 (89) 93 05/01/17 14:35 108 15 93 05/01/17 14:34 36.8 105 17 121/76 93 Room Air 05/01/17 14:30 109 16 92 05/01/17 14:30 109 16 92 05/01/17 14:20 117 19 117/76 (90) 97 05/01/17 14:15 97 20 93 05/01/17 14:15 97 20 93 05/01/17 14:05 110 20 92 05/01/17 14:02 114 16 108/82 (91) 93 05/01/17 14:02 36.8 114 16 108/82 (91) 93 05/01/17 14:02 114 16 108/82 (91) 93 05/01/17 14:00 97 13 93 05/01/17 14:00 97 13 93 05/01/17 13:59 104 17 101/67 (78) 93 05/01/17 13:59 104 17 101/67 (78) 93 05/01/17 13:59 104 17 101/67 (78) 93 05/01/17 13:54 65 17 99/73 (82) 98 05/01/17 13:54 65 17 99/73 (82) 98 05/01/17 13:54 65 17 99/73 (82) 98 05/01/17 12:00 96 Room Air 05/01/17 12:00 36.7 98 18 110/76 (87) 98 05/01/17 10:26 52 19 90/70 (77) 97 05/01/17 10:25 50 16 05/01/17 10:21 98 21 100/76 (84) 05/01/17 10:20 50 19 96 05/01/17 10:17 98 20 97/78 (84) 05/01/17 10:15 97 16 05/01/17 10:10 97 19 05/01/17 10:06 49 19 93/69 (77) 95 05/01/17 10:05 49 17 95 05/01/17 10:01 98 4/69 (48) 97 05/01/17 10:01 50 17 94/69 (77) 98 05/01/17 10:01 117 118/98 05/01/17 10:00 52 18 97 05/01/17 09:57 118 16 118/98 (105) 05/01/17 09:55 125 18 118/98 (105) 97 Room Air 05/01/17 09:55 125 17 97 05/01/17 09:50 126 16 94 Laboratory Results: Last 24 Hours Test 05/01/17 09:27 05/01/17 11:44 05/01/17 13:12 05/01/17 16:06 Digoxin Level 1.1 ng/ml Bedside Glucose 75 mg/dl 81 mg/dl 136 mg/dl Test 05/01/17 20:47 05/01/17 21:05 05/02/17 05:37 Bedside Glucose 103 mg/dl Activated Partial Thromboplast Time 58.5 SECONDS 58.3 SECONDS Partial Thromboplastin Ratio 2.3 2.2 White Blood Count 6.85 K/uL Red Blood Count 3.59 M/uL Hemoglobin 10.2 g/dL Hematocrit 30.9 % Mean Corpuscular Volume 86.1 fL Mean Corpuscular Hemoglobin 28.4 pg Mean Corpuscular Hemoglobin Concent 33.0 g/dl Platelet Count 138 K/uL Mean Platelet Volume 11.4 fL Neutrophils (%) (Auto) 79.6 % Lymphocytes (%) (Auto) 9.1 % Monocytes (%) (Auto) 9.2 % Eosinophils (%) (Auto) 0.9 % Basophils (%) (Auto) 0.3 % Neutrophils # (Auto) 5.46 K/uL Lymphocytes # (Auto) 0.62 K/uL Monocytes # (Auto) 0.63 K/uL Eosinophils # (Auto) 0.06 K/uL Basophils # (Auto) 0.02 K/uL RDW Standard Deviation 43.6 fL RDW Coefficient of Variation 14.3 % Immature Granulocyte % (Auto) 0.9 % Immature Granulocyte # (Auto) 0.06 K/uL Sodium Level 134 mmol/L Potassium Level 3.8 mmol/L Chloride Level 98 mmol/L Carbon Dioxide Level 23 mmol/L Anion Gap 13.0 mmol/L Blood Urea Nitrogen 85 mg/dl Creatinine 6.40 mg/dl Est Creatinine Clear Calc Drug Dose 14.5 ml/min Estimated GFR () 9.9 Estimated GFR (Non- 8.6 BUN/Creatinine Ratio 13.3 Random Glucose 124 mg/dl Calcium Level 8.1 mg/dl Phosphorus Level 6.9 mg/dl Resident Tracking Resident Involvement: Resident Care Provided Care Provided: Adult Hospital Medicine
--- NOTE | 2017-05-02 09:57 | Nephrology Progress Note ---
Nephrology Progress Note Date of Service May 02, 2017. Chief Complaint F/U for ESRD Subjective Serene was seen and examined in his room in ICU this morning. He denies any specific symptoms, he feels like he is doing quite well and he wants to day discharged and wants to go home as soon as possible. Had his 1st dialysis treatment yesterday for 2 hours after getting right IJ tunnel dialysis catheter , tolerated dialysis well. Blood pressure still electively is soft and occasionally heart rate still goes above 100. Still making some urine Review of Systems A complete review of systems was performed. Pertinent positives are noted above. All other systems are negative. Vital Signs Last 8 Hrs Date Time Temp Pulse Resp B/P (MAP) Pulse Ox O2 Delivery O2 Flow Rate FiO2 05/02/17 06:01 96 18 108/53 (71) 93 Room Air 05/02/17 05:09 92 22 82/56 (65) 05/02/17 05:03 82 19 70/58 (62) 05/02/17 04:01 36.6 105 16 91/66 (74) 96 Nasal Cannula 05/02/17 04:00 Room Air 05/02/17 03:01 100 18 90/69 (76) 97 05/02/17 02:01 99 20 91/72 (78) 97 05/02/17 01:01 113 20 95/63 (74) 94 Last Recorded Weight Weight (Kilograms): 98.800 Physical Exam GENERAL:middle aged male , AAA x 3, pleasant, pale, ill-appearing, not in any distress. NECK: Supple, no JVD. RESPIRATORY: Normal breathing efforts, no accessory muscle use, clear to auscultation bilaterally, no wheezes or rales. CARDIOVASCULAR: S1, S2 normal, rhythm irregular. ABDOMEN: mildly distended, nontender, positive bowel sound EXTREMITY: 1-2+ tense lower extremity edema, left she in with skin break NEURO: speech fluent. PSYCHIATRY: Normal mood and judgment Family History No pertinent family history Social History Smokeless Tobacco Use: No Alcohol Use: none Drug Use: none Marital Status: Housing Status: lives with family Occupation: disabled Laboratory Results Past 24 Hours 05/02/17 05:37 Red Blood Count 3.59, Mean Corpuscular Volume 86.1, Mean Corpuscular Hemoglobin 28.4, Mean Corpuscular Hemoglobin Concent 33.0, Mean Platelet Volume 11.4, Neutrophils (%) (Auto) 79.6, Lymphocytes (%) (Auto) 9.1, Monocytes (%) (Auto) 9.2, Eosinophils (%) (Auto) 0.9, Basophils (%) (Auto) 0.3, Neutrophils # (Auto) 5.46, Lymphocytes # (Auto) 0.62, Monocytes # (Auto) 0.63, Eosinophils # (Auto) 0.06, Basophils # (Auto) 0.02 05/02/17 05:37 Test 05/01/17 09:27 05/01/17 11:44 05/01/17 13:12 05/01/17 16:06 Digoxin Level 1.1 ng/ml (0.8-2.0) Bedside Glucose 75 mg/dl (70-99) 81 mg/dl (70-99) 136 mg/dl (70-99) Test 05/01/17 20:47 05/01/17 21:05 05/02/17 05:37 Bedside Glucose 103 mg/dl (70-99) Activated Partial Thromboplast Time 58.5 SECONDS (21.0-31.0) 58.3 SECONDS (21.0-31.0) Partial Thromboplastin Ratio 2.3 2.2 White Blood Count 6.85 K/uL (4.8-10.8) Red Blood Count 3.59 M/uL (4.7-6.1) Hemoglobin 10.2 g/dL (14.0-18.0) Hematocrit 30.9 % (42-52) Mean Corpuscular Volume 86.1 fL (80-100) Mean Corpuscular Hemoglobin 28.4 pg (25-34) Mean Corpuscular Hemoglobin Concent 33.0 g/dl (32-36) Platelet Count 138 K/uL (130-400) Mean Platelet Volume 11.4 fL (7.4-10.4) Neutrophils (%) (Auto) 79.6 % Lymphocytes (%) (Auto) 9.1 % Monocytes (%) (Auto) 9.2 % Eosinophils (%) (Auto) 0.9 % Basophils (%) (Auto) 0.3 % Neutrophils # (Auto) 5.46 K/uL (1.4-6.5) Lymphocytes # (Auto) 0.62 K/uL (1.2-3.4) Monocytes # (Auto) 0.63 K/uL (0.11-0.59) Eosinophils # (Auto) 0.06 K/uL (0-0.5) Basophils # (Auto) 0.02 K/uL (0-0.2) RDW Standard Deviation 43.6 fL (36.4-46.3) RDW Coefficient of Variation 14.3 % (11.5-14.5) Immature Granulocyte % (Auto) 0.9 % Immature Granulocyte # (Auto) 0.06 K/uL (0.00-0.02) Anion Gap 13.0 mmol/L (3-11) Est Creatinine Clear Calc Drug Dose 14.5 ml/min Estimated GFR () 9.9 Estimated GFR (Non- 8.6 BUN/Creatinine Ratio 13.3 (10-20) Calcium Level 8.1 mg/dl (8.5-10.1) Phosphorus Level 6.9 mg/dl (2.5-4.9) Allergies Coded Allergies: No Known Allergies (Unverified , 04/29/17) Medications Current Inpatient Medications Medications (Trade) Dose Ordered Sig/Mikie Route Start Time Stop Time Status Last Admin Dose Admin Diltiazem HCl 125 mg/Dextrose 125 ml @ 0 mls/hr Q0M PRN IV 04/29/17 17:15 05/29/17 17:14 04/30/17 03:48 5 MLS/HR Acetaminophen (Tylenol Tab) 650 mg Q4H PRN PO 04/29/17 20:30 05/29/17 20:29 04/30/17 15:52 650 MG Ondansetron HCl (Zofran Inj) 4 mg Q6H PRN IV 04/29/17 20:30 05/29/17 20:29 Aspirin (Ecotrin Tab) 325 mg DAILY PO 04/30/17 09:00 05/30/17 08:59 05/02/17 07:57 325 MG Gabapentin (Neurontin Cap) 100 mg BID PO 04/29/17 21:00 05/29/17 20:59 05/02/17 08:07 100 MG Metoprolol Tartrate (Lopressor Iv) 2.5 mg Q4 PRN IV 04/29/17 21:00 05/29/17 20:59 05/01/17 10:01 2.5 MG Pramipexole Dihydrochloride (miraPEX TAB) 0.25 mg QAM PO 04/30/17 09:00 05/30/17 08:59 05/02/17 07:57 0.25 MG Miscellaneous Information (Consult Glycemic Management Pharmacy) 1 ea UD PRN N/A 04/30/17 08:38 05/30/17 08:37 Calcitriol (Rocaltrol Cap) 1 mcg MoWeFr@0900 PO 04/30/17 09:00 05/30/17 08:59 05/01/17 08:54 1 MCG Calcium Carbonate (Tums Chew Tab) 500 mg AC PO 04/30/17 11:00 05/30/17 10:59 05/02/17 06:08 500 MG Furosemide 80 mg/ Syringe 8 ml @ 4 mls/min BID IV 04/30/17 21:00 05/30/17 20:59 05/02/17 08:05 4 MLS/MIN Carvedilol (Coreg Tab) 6.25 mg BID PO 04/30/17 21:00 05/30/17 20:59 05/02/17 08:07 6.25 MG Insulin Aspart (novoLOG ASPART) SLIDING SCALE G... ACHS SC 04/30/17 16:00 05/30/17 11:59 04/30/17 21:15 1 UNITS Digoxin (Lanoxin Tab) 0.125 mg DAILY@16 PO 05/01/17 16:00 05/31/17 15:59 05/01/17 16:00 0.125 MG Heparin Sodium/ Dextrose 500 ml @ 30 mls/hr [id number] PRN IV 05/01/17 15:45 05/31/17 15:44 05/02/17 07:55 30 MLS/HR Acetaminophen/ Hydrocodone Bitart (Burt 5/325 Tab) 1 tab Q4H PRN PO 05/01/17 20:30 05/15/17 20:29 05/02/17 07:54 1 TAB Docusate Sodium (coLACE CAP) 100 mg BID PO 05/02/17 09:00 06/01/17 08:59 05/02/17 07:59 100 MG Impression (1) Acute renal failure (2) Volume overload (3) CKD (chronic kidney disease) stage 4, GFR 15-29 ml/min (4) Anemia (5) Hyperphosphatemia (6) Metabolic acidosis (7) Atrial fibrillation with RVR Rubio is a 62-year-old gentlemen with stage IV chronic kidney disease, hypertension, diabetes, coronary artery disease, CHF with EF 30% right-sided heart failure admitted to the hospital with acute kidney injury, volume overload and atrial flutter with RVR. He has stage IV CKD secondary to diabetic nephropathy, baseline creatinine around 3.6. Currently he is rate controlled on Cardizem and on anticoagulation with heparin. At home he has been on Lasix 80 twice a day, Diuretics has been on hold since admission, has significant volume overload and renal function has been progressively worsening. Electrolyte including potassium and bicarbonate is acceptable. Acute kidney injury most likely secondary to cardiorenal syndrome type 1. Has history of significant coronary artery disease previously had multiple stent and then had CABG done in 2013. Last EF 30 percent. currently on anticoagulation 8 heparin and Cardizem. Yesterday started on low-dose digoxin. Had tunnel dialysis catheter on 05/01/2017 and had 1st dialysis treatment for 2 hours, tolerated well. Plan was to had PD catheter placed at the same time however did not have it done as avg patient was not able to lie flat for longer. Plan is to have the PD catheter placed on Saturday or as an outpatient if patient gets discharged over the weekend. Recommendations -- will have 2nd dialysis treatment for 2.5 hours this morning --scheduled for PD catheter Saturday morning or as an outpatient within a week if patient gets discharged over the weekend --physical therapy consulted --on susanna --referred to [facility] for outpatient dialysis. --Continue on Tums 1 tablet with each meal, calcitriol 1 mcg 3 times a week Nephrocaps Will follow
--- NOTE | 2017-05-02 10:15 | Cardiology Follow-Up ---
Subjective Date of Service: May 02, 2017. History of Present Illness 62 yo male PMHx significant for T2DM, CKD stage 4 and CAD -Pt is hospital day 3 after being admitted for acute renal failure, volume overload and aflutter -Today the patient was sitting up on the side of the bed in good spirits. -Pt denies SOB, heart palpitations or chest pain. -Pt reports feeling much better since being diuresed over the past few days: legs are feel less heavy and abdomen less swollen -Pt is tolerating permacath placement -Pt denies fevers, chill, N/V/D or abdominal pain Social History Smoking Status: Current Every Day Smoker History of Alcohol Use: No Review of Systems Respiratory: No cough, No sputum, No wheezing, No shortness of breath, No dyspnea on exertion Cardiac: No chest pain, No orthopnea, No PND, No edema, No palpitations Objective Vital Signs Past 12 Hours Date Time Temp Pulse Resp B/P (MAP) Pulse Ox O2 Delivery O2 Flow Rate FiO2 05/02/17 08:00 37.1 100 89/32 (51) 94 Room Air 05/02/17 08:00 94 Room Air 05/02/17 06:01 96 18 108/53 (71) 93 Room Air 05/02/17 05:09 92 22 82/56 (65) 05/02/17 05:03 82 19 70/58 (62) 05/02/17 04:01 36.6 105 16 91/66 (74) 96 Nasal Cannula 05/02/17 04:00 Room Air 05/02/17 03:01 100 18 90/69 (76) 97 05/02/17 02:01 99 20 91/72 (78) 97 05/02/17 01:01 113 20 95/63 (74) 94 05/02/17 00:01 36.5 119 16 85/58 (67) 92 05/01/17 23:59 Room Air 05/01/17 23:01 114 20 86/62 (70) 05/01/17 22:01 88 20 99/58 (72) 89 Last Recorded Weight-Kilograms: 98.800 Physical Exam Constitutional: Level of Distress: NAD Lungs: Auscultation: breath sounds normal, CTA except as noted, no wheezing, no rales/crackles Cardiovascular: Heart Auscultation: RRR, normal S1, normal S2 Extremities: no cyanosis, no clubbing Pt has abdominal distension without tenderness. LE edema bilaterally. Data Laboratory Results: Last 24 Hours Test 05/01/17 11:44 05/01/17 13:12 05/01/17 16:06 05/01/17 20:47 Bedside Glucose 75 mg/dl 81 mg/dl 136 mg/dl 103 mg/dl Test 05/01/17 21:05 05/02/17 05:37 Activated Partial Thromboplast Time 58.5 SECONDS 58.3 SECONDS Partial Thromboplastin Ratio 2.3 2.2 White Blood Count 6.85 K/uL Red Blood Count 3.59 M/uL Hemoglobin 10.2 g/dL Hematocrit 30.9 % Mean Corpuscular Volume 86.1 fL Mean Corpuscular Hemoglobin 28.4 pg Mean Corpuscular Hemoglobin Concent 33.0 g/dl Platelet Count 138 K/uL Mean Platelet Volume 11.4 fL Neutrophils (%) (Auto) 79.6 % Lymphocytes (%) (Auto) 9.1 % Monocytes (%) (Auto) 9.2 % Eosinophils (%) (Auto) 0.9 % Basophils (%) (Auto) 0.3 % Neutrophils # (Auto) 5.46 K/uL Lymphocytes # (Auto) 0.62 K/uL Monocytes # (Auto) 0.63 K/uL Eosinophils # (Auto) 0.06 K/uL Basophils # (Auto) 0.02 K/uL RDW Standard Deviation 43.6 fL RDW Coefficient of Variation 14.3 % Immature Granulocyte % (Auto) 0.9 % Immature Granulocyte # (Auto) 0.06 K/uL Sodium Level 134 mmol/L Potassium Level 3.8 mmol/L Chloride Level 98 mmol/L Carbon Dioxide Level 23 mmol/L Anion Gap 13.0 mmol/L Blood Urea Nitrogen 85 mg/dl Creatinine 6.40 mg/dl Est Creatinine Clear Calc Drug Dose 14.5 ml/min Estimated GFR () 9.9 Estimated GFR (Non- 8.6 BUN/Creatinine Ratio 13.3 Random Glucose 124 mg/dl Calcium Level 8.1 mg/dl Phosphorus Level 6.9 mg/dl Imaging: EKG: Telemetry reviewed: Assessment and Plan 1. Cardiovascular-Aflutter, low EF -Pt had a 5 vessel CABG in 2013 -EF 20-25 %, LV function severely reduced -Aflutter--patient controlled with IV Cardizem, Lopressor and digoxin. Overlap IV when transitioning to PO meds. -Nephro recommends monitoring rhythms closely, as dialysis can cause return of arrhythmia 2. Acute renal failure -baseline Cr 3-4, today 6.4. Potassium is WNL -Permacath placed, well tolerated -Right side overload: Pts is feeling better in regards to volume. Edema in legs is less firm, abdomen is soft and less distended. -Pt does not complain of SOB and has normal O2 sats. RESIDENT NOTE--education purposes
[2017-05-02] MEDS: NEPHROCAPS PO SCH (14:30)
[2017-05-02] MEDS ORDERED: AZTREONAM CONSULT ACTIVE PRN ×2 (14:45)
[2017-05-02] MEDS ORDERED: AZTREONAM 2000 MG in DEXTROSE 5% 100 ML IV ONE (15:00)
[2017-05-02] MEDS: DIGOXIN 0.125 MG TAB PO SCH (16:10)
[2017-05-03] VITALS (21 sets, daily range): BP systolic 91–147; BP diastolic 50–76; PULSE 55–102; TEMP 36.3–36.7; O2SAT 92–100
[2017-05-03] MEDS: HEPARIN 25,000 UNIT/500ML D5W 500 ML IV PRN (00:04)
[2017-05-03] MEDS ORDERED: AZTREONAM IV 1,000 MG in DEXTROSE 5% 100ML IV SCH (02:00)
[2017-05-03 06:10] LABS: BASO % 0.3 %; BASO ABS # 0.02 K/uL (0-0.2); COMPLETE YES; EOS % 2.9 %; HEMATOCRIT 31.1 % (42-52); LYMPH % 16.5 %; LYMPH ABS # 1.13 K/uL (1.2-3.4); MEAN CELL VOLUME 87.4 fL (80-100); MEAN CORPUSCULAR HEMOGLOBIN 28.9 pg (25-34); MEAN CORPUSCULAR HGB CONC 33.1 g/dl (32-36); MEAN PLATELET VOLUME 11.7 fL (7.4-10.4); MONO % 10.2 %; NEUT % 69.1 %; PLATELET COUNT 105 K/uL (130-400); RED BLOOD COUNT 3.56 M/uL (4.7-6.1); WHITE BLOOD COUNT 6.83 K/uL (4.8-10.8)
[2017-05-03 07:00] LABS: BUN/CREATININE RATIO 10.9 (10-20); CALCIUM 8.5 mg/dl (8.5-10.1); CREATININE 5.5 mg/dl (0.60-1.40); POTASSIUM 3.9 mmol/L (3.5-5.1)
[2017-05-03 07:36] LABS: PARTIAL THROMBOPLASTIN RATIO 2.8
[2017-05-03] MEDS: CALCIUM CARBONATE 500 MG CHEWABLE PO SCH ×3 (08:17→16:15)
[2017-05-03] MEDS: DOCUSATE SODIUM 100 MG CAP PO SCH (08:25)
[2017-05-03] MEDS: IRON SUCROSE INJ 100 MG in SODIUM CHLORIDE 0.9% 100ML 100 ML IV SCH (08:25)
[2017-05-03] MEDS: INSULIN ASPART 100 UNITS/ML 3 ML PEN SC SCH ×3 (08:25→16:15)
[2017-05-03] MEDS: CARVEDILOL 6.25 MG TAB PO SCH (08:26)
[2017-05-03] MEDS: PRAMIPEXOLE DIHYDROCHLORIDE 0.25MG TAB PO SCH (08:26)
[2017-05-03] MEDS: ASPIRIN 325 MG ECTAB PO SCH (08:26)
[2017-05-03] MEDS: NEPHROCAPS PO SCH (08:27)
[2017-05-03] MEDS: CALCITRIOL 0.25 MCG CAP PO SCH (08:27)
[2017-05-03] MEDS: GABAPENTIN 100 MG CAP PO SCH (08:27)
--- NOTE | 2017-05-03 08:56 | Pharmacy Progress Note ---
Glycemic Control Progress Note Date of Service May 03, 2017. Scope Glycemic Pharmacist consulted for glycemic control to write orders per [facility] inpatient glycemic control protocol. Objective Accuchecks BSG (last 24hrs): Test 05/02/17 11:17 05/02/17 16:23 05/02/17 20:46 05/03/17 05:18 Bedside Glucose 110 mg/dl (70-99) 228 mg/dl (70-99) 167 mg/dl (70-99) Random Glucose 134 mg/dl (70-99) HbA1c: Test 05/01/17 05:14 Hemoglobin A1c 9.1 % (4.5-5.6) H Recent Pertinent Medications The patient is currently receiving: * Basal insulin: No basal insulin * Correctional Insulin: Novolog Correction per scale ACHS Goal Range: Low 140 mg/dL - High 180 mg/dL Correction Factor: 30 mg/dL/unit * Prandial insulin: Per carb ratio of 1 unit per --- grams CHO consumed RISK FACTORS FOR INSULIN RESISTANCE * IVFs: heparin gtt and diltiazem gtt * Infection: leg ulcer, on Azactam * Diet: renal + type 2 diabetic diet Outpatient Anti-Diabetic Meds Glyburide/ metformin 5/500 mg 2 tablets twice daily (not compliant) Assessment & Plan ASSESSMENT: * See progress note from 04/30/2017 for more background info, in short: Mr Montgomery is a 62 y/o male admitted with ARF and Aflutter. He has a history of noncompliance with diabetes medications and does not check his blood sugars at home. * Pt receiving SQ basal bolus insulin regimen for hyperglycemia secondary to baseline DM (outpatient regimen on hold),infection, dextrose IVF (diltiazem and heparin mixed in dextrose), recent surgery (POD 2 for HD cath placement) * Patient is currently receiving an average of 2 units of insulin per day * 0 units of basal insulin * 2 units of prandial/correctional insulin * BSGs ranging 110 - 228 mg/dl over the past 24hrs * Changes needed to insulin regimen: * AM Fasting BSG = 134 mg/dl. This is within goal range for patient based on inpatient targets and co-morbidities. Lunch blood sugar elevated greater than 180 mg/dL so will start Lantus 10 units daily (50% of previous dose). * Post-prandial BSGs are elevated/BSGs rise throughout the day therefore will add carbohydrate ratio of 10 (weight based stress of 1-2). * Total daily dose = ~10-20 units. PLAN FOR INPATIENT GLYCEMIC CONTROL: * Start Lantus 10 units SQ daily * Continuing correction factor of 30 mg/dl/unit * STARTING carb ratio of 1 unit per 10 grams CHO consumed * TIGHTENING goal range to Low 110 mg/dL - High 140 mg/dL RECOMMENDATIONS FOR DISCHARGE: * With elevated HbA1C and history of noncompliance would recommend evaluating what would produce compliance in patient. Patient would probably benefit from low dose Lantus but unsure if he will take this. * Please note that the plan above was derived based on current level of insulin resistance and hospital stress. These recommendations are appropriate for inpatient admission only. Plan of care upon discharge will need to be reassessed to avoid potential outpatient hypo/hyperglycemia. Thank you.
--- NOTE | 2017-05-03 09:25 | CARDIOLOGY PROGRESS NOTE ---
DATE: 05/03/2017 SUBJECTIVE: Mr. Montgomery is resting comfortably at the bedside without complaints of chest pain or dyspnea. He is anxious for hospital discharge. Denies chest pain, dyspnea, and palpitations. OBJECTIVE: VITAL SIGNS: Blood pressure is 112/72 with a regular pulse of 80. Respiratory rate is 16. The patient is afebrile at 36.5 degrees Celsius. Saturation is 95% on room air. NECK: Supple with full carotid upstrokes. There are no carotid bruits. Jugular venous pressure is flat at 90 degrees. There is no thyromegaly. CARDIOVASCULAR: Reveals a regular rhythm with distant heart sounds. No obvious murmurs. LUNGS: Clear without rales, rhonchi, or wheezes. ABDOMEN: Obese without bruits. EXTREMITIES: Notes tense woody edema distal to the knees bilaterally. 1+ pitting edema noted at the thigh. No sacral edema. DATA: CBC notes hemoglobin of 10.3, hematocrit 31.1, white count 6.8, and platelet count 105,000. Electrolytes note a sodium of 132, potassium 3.9, chloride 95, bicarbonate 26, BUN 60, creatinine 5.5, and glucose 134. PTT is 73.0. Digoxin level is 1.1. vehicle monitor technician notes atrial flutter with a controlled ventricular response. IMPRESSION AND PLAN: 1. Atrial flutter -- ventricular response, now well controlled on carvedilol. Diltiazem has been discontinued. He is also tolerating low dose digoxin. At the time of discharge, would start on Coumadin as use of newer agents in the face of renal insufficiency would be problematic. 2. Acute on chronic systolic congestive heart failure -- volume now managed with hemodialysis. Back on usual dose of carvedilol. We will discuss restarting lisinopril with nephrology. 3. Coronary artery disease -- status post left anterior descending artery percutaneous coronary intervention in October 2002. A 5-vessel coronary artery bypass grafting in December 2013. 4. Peripheral vascular disease -- status post carotid endarterectomy. 5. Diabetes mellitus. 6. Acute on chronic renal failure -- per Dr. Max. 7. Disposition -- stable for hospital discharge from a cardiac perspective. As above, should start on Coumadin. Follow up with Dr. Goyal in our regional office. [facility]
--- NOTE | 2017-05-03 09:45 | Nephrology Progress Note ---
Nephrology Progress Note Date of Service May 03, 2017. Chief Complaint F/U for ESRD Subjective Rubio was seen and examined in his room this morning. He denies any specific symptoms, he feels like he is doing quite well. Had dialysis for 2.5 hours yesterday, tolerated dialysis well. Blood pressure still relatively soft and occasionally heart rate still goes to 90-100. Still making urine Review of Systems A complete review of systems was performed. Pertinent positives are noted above. All other systems are negative. Vital Signs Last 8 Hrs Date Time Temp Pulse Resp B/P (MAP) Pulse Ox O2 Delivery O2 Flow Rate FiO2 05/03/17 07:03 36.5 99 16 112/72 (85) 95 Room Air 05/03/17 04:00 Room Air 05/03/17 03:40 36.4 96 20 113/71 (85) 94 Room Air Last Recorded Weight Weight (Kilograms): 97.900 Physical Exam GENERAL:middle aged male , AAA x 3, pleasant, pale, ill-appearing, not in any distress. NECK: Supple, no JVD. RESPIRATORY: Normal breathing efforts, no accessory muscle use, clear to auscultation bilaterally, no wheezes or rales. CARDIOVASCULAR: S1, S2 normal, rhythm irregular. ABDOMEN: mildly distended, nontender, positive bowel sound EXTREMITY: 1+ tense lower extremity edema, left she in with skin break NEURO: speech fluent. PSYCHIATRY: Normal mood and judgment Family History No pertinent family history Social History Smokeless Tobacco Use: No Alcohol Use: none Drug Use: none Marital Status: Housing Status: lives with family Occupation: disabled Laboratory Results Past 24 Hours 05/03/17 05:18 Red Blood Count 3.56, Mean Corpuscular Volume 87.4, Mean Corpuscular Hemoglobin 28.9, Mean Corpuscular Hemoglobin Concent 33.1, Mean Platelet Volume 11.7, Neutrophils (%) (Auto) 69.1, Lymphocytes (%) (Auto) 16.5, Monocytes (%) (Auto) 10.2, Eosinophils (%) (Auto) 2.9, Basophils (%) (Auto) 0.3, Neutrophils # (Auto ) 4.71, Lymphocytes # (Auto) 1.13, Monocytes # (Auto) 0.70, Eosinophils # (Auto ) 0.20, Basophils # (Auto) 0.02 05/03/17 05:18 Test 05/02/17 11:17 05/02/17 16:23 05/02/17 20:46 05/03/17 05:18 Bedside Glucose 110 mg/dl (70-99) 228 mg/dl (70-99) 167 mg/dl (70-99) White Blood Count 6.83 K/uL (4.8-10.8) Red Blood Count 3.56 M/uL (4.7-6.1) Hemoglobin 10.3 g/dL (14.0-18.0) Hematocrit 31.1 % (42-52) Mean Corpuscular Volume 87.4 fL (80-100) Mean Corpuscular Hemoglobin 28.9 pg (25-34) Mean Corpuscular Hemoglobin Concent 33.1 g/dl (32-36) Platelet Count 105 K/uL (130-400) Mean Platelet Volume 11.7 fL (7.4-10.4) Neutrophils (%) (Auto) 69.1 % Lymphocytes (%) (Auto) 16.5 % Monocytes (%) (Auto) 10.2 % Eosinophils (%) (Auto) 2.9 % Basophils (%) (Auto) 0.3 % Neutrophils # (Auto) 4.71 K/uL (1.4-6.5) Lymphocytes # (Auto) 1.13 K/uL (1.2-3.4) Monocytes # (Auto) 0.70 K/uL (0.11-0.59) Eosinophils # (Auto) 0.20 K/uL (0-0.5) Basophils # (Auto) 0.02 K/uL (0-0.2) RDW Standard Deviation 45.2 fL (36.4-46.3) RDW Coefficient of Variation 14.5 % (11.5-14.5) Immature Granulocyte % (Auto) 1.0 % Immature Granulocyte # (Auto) 0.07 K/uL (0.00-0.02) Anion Gap 11.0 mmol/L (3-11) Est Creatinine Clear Calc Drug Dose 16.8 ml/min Estimated GFR () 11.9 Estimated GFR (Non- 10.3 BUN/Creatinine Ratio 10.9 (10-20) Calcium Level 8.5 mg/dl (8.5-10.1) Test 05/03/17 07:01 Activated Partial Thromboplast Time 73.0 SECONDS (21.0-31.0) Partial Thromboplastin Ratio 2.8 Allergies Coded Allergies: No Known Allergies (Unverified , 04/29/17) Medications Current Inpatient Medications Medications (Trade) Dose Ordered Sig/Mikie Route Start Time Stop Time Status Last Admin Dose Admin Diltiazem HCl 125 mg/Dextrose 125 ml @ 0 mls/hr Q0M PRN IV 04/29/17 17:15 05/29/17 17:14 04/30/17 03:48 5 MLS/HR Acetaminophen (Tylenol Tab) 650 mg Q4H PRN PO 04/29/17 20:30 05/29/17 20:29 04/30/17 15:52 650 MG Ondansetron HCl (Zofran Inj) 4 mg Q6H PRN IV 04/29/17 20:30 05/29/17 20:29 Aspirin (Ecotrin Tab) 325 mg DAILY PO 04/30/17 09:00 05/30/17 08:59 05/03/17 08:26 325 MG Gabapentin (Neurontin Cap) 100 mg BID PO 04/29/17 21:00 05/29/17 20:59 05/03/17 08:27 100 MG Metoprolol Tartrate (Lopressor Iv) 2.5 mg Q4 PRN IV 04/29/17 21:00 05/29/17 20:59 05/01/17 10:01 2.5 MG Pramipexole Dihydrochloride (miraPEX TAB) 0.25 mg QAM PO 04/30/17 09:00 05/30/17 08:59 05/03/17 08:26 0.25 MG Miscellaneous Information (Consult Glycemic Management Pharmacy) 1 ea UD PRN N/A 04/30/17 08:38 05/30/17 08:37 Calcitriol (Rocaltrol Cap) 1 mcg MoWeFr@0900 PO 04/30/17 09:00 05/30/17 08:59 05/03/17 08:27 1 MCG Calcium Carbonate (Tums Chew Tab) 500 mg AC PO 04/30/17 11:00 05/30/17 10:59 05/03/17 08:17 500 MG Carvedilol (Coreg Tab) 6.25 mg BID PO 04/30/17 21:00 05/30/17 20:59 05/03/17 08:26 6.25 MG Insulin Aspart (novoLOG ASPART) SLIDING SCALE G... ACHS SC 04/30/17 16:00 05/30/17 11:59 05/03/17 08:25 5 UNITS Digoxin (Lanoxin Tab) 0.125 mg DAILY@16 PO 05/01/17 16:00 05/31/17 15:59 05/02/17 16:10 0.125 MG Heparin Sodium/ Dextrose 500 ml @ 28 mls/hr [id number] PRN IV 05/01/17 15:45 05/31/17 15:44 05/03/17 00:04 30 MLS/HR Acetaminophen/ Hydrocodone Bitart ([place] 5/325 Tab) 1 tab Q4H PRN PO 05/01/17 20:30 05/15/17 20:29 05/02/17 07:54 1 TAB Docusate Sodium (coLACE CAP) 100 mg BID PO 05/02/17 09:00 06/01/17 08:59 05/03/17 08:25 100 MG Iron Sucrose 100 mg/Sodium Chloride 105 ml @ 420 mls/hr DAILY@0900 IV 05/02/17 09:00 05/04/17 09:14 05/03/17 08:25 420 MLS/HR Vitamin B Complex/ Vit C/Folic Acid (Nephrocaps) 1 cap QAM PO 05/02/17 10:30 06/01/17 10:29 05/03/17 08:27 1 CAP Aztreonam (Consult) 1 ea UD PRN N/A 05/02/17 14:45 06/01/17 14:44 Aztreonam 1000 mg/ Dextrose 110 ml @ 110 mls/hr Q12H IV 05/03/17 02:00 05/13/17 01:59 05/03/17 02:36 110 MLS/HR Impression (1) Acute renal failure (2) Volume overload (3) CKD (chronic kidney disease) stage 4, GFR 15-29 ml/min (4) Anemia (5) Hyperphosphatemia (6) Metabolic acidosis (7) Atrial fibrillation with RVR Rubio is a 62-year-old gentlemen with stage IV chronic kidney disease, hypertension, diabetes, coronary artery disease, CHF with EF 30% right-sided heart failure admitted to the hospital with acute kidney injury, volume overload and atrial flutter with RVR. He has stage IV CKD secondary to diabetic nephropathy, baseline creatinine around 3.6. Currently he is rate controlled on Cardizem and on anticoagulation with heparin. At home he has been on Lasix 80 twice a day, Diuretics has been on hold since admission, has significant volume overload and renal function has been progressively worsening. Electrolyte including potassium and bicarbonate is acceptable. Acute kidney injury most likely secondary to cardiorenal syndrome type 1. Has history of significant coronary artery disease previously had multiple stent and then had CABG done in 2013. Last EF 30 percent. currently on anticoagulation 8 heparin and Cardizem. Yesterday started on low-dose digoxin. Had tunnel dialysis catheter on 05/01/2017 and had 1st dialysis treatment for 2 hours, tolerated well. Plan was to had PD catheter placed at the same time however did not have it done as avg patient was not able to lie flat for longer. Plan is to have the PD catheter placed on Saturday or as an outpatient if patient gets discharged over the weekend. Recommendations -- will have 3rd dialysis treatment for 3 hours this morning --scheduled for PD catheter Saturday morning or as an outpatient within a week if patient gets discharged --physical therapy consulted --on susanna --he has spot available for Saturday, , Saturday had 1:30 p.m. at [facility] for outpatient dialysis. --Continue on Tums 1 tablet with each meal, calcitriol 1 mcg 3 times a week Nephrocaps -- OK be discharged today after dialysis from Nephrology stand point, can wait for next HD until next Saturday. Will follow
[2017-05-03] MEDS: FUROSEMIDE 40 MG TAB PO SCH ×2 (09:56→19:44)
--- NOTE | 2017-05-03 11:09 | Cardiology Follow-Up ---
Subjective Date of Service: May 03, 2017. History of Present Illness 62 yo male PMHx significant for T2DM, CKD stage 4 and CAD -Pt is hospital day 4 after being admitted for acute renal failure, volume overload and aflutter -Today the patient was sitting up on the side of the bed. Pt was mildly agitated and eager to go home. -Pt denies SOB, heart palpitations or chest pain. -Pt is tolerating dialysis. Reports less abdominal distension and heaviness in legs. -Pt can get to the toilet with help, denies feeling like he going to pass out. -Pt denies fevers, chill, N/V/D or abdominal pain ----Resident note----please see Dr. Ballesteros's note for comprehensive cardio recommendations Social History Smoking Status: Current Every Day Smoker History of Alcohol Use: No Review of Systems Respiratory: No cough, No sputum, No shortness of breath Cardiac: + edema, No chest pain, No palpitations Objective Vital Signs Past 12 Hours Date Time Temp Pulse Resp B/P (MAP) Pulse Ox O2 Delivery O2 Flow Rate FiO2 05/03/17 07:03 36.5 99 16 112/72 (85) 95 Room Air 05/03/17 04:00 Room Air 05/03/17 03:40 36.4 96 20 113/71 (85) 94 Room Air 05/02/17 23:59 Room Air 05/02/17 23:40 37.4 94 18 101/67 (78) 96 Room Air Last Recorded Weight-Kilograms: 97.900 Physical Exam Constitutional: Level of Distress: NAD Lungs: Auscultation: breath sounds normal, CTA except as noted, no wheezing, no rales/crackles Cardiovascular: Heart Auscultation: RRR, normal S1, normal S2 Extremities: no cyanosis, no clubbing Pt has abdominal distension without tenderness. LE edema bilaterally. Data Laboratory Results: Last 24 Hours Test 05/02/17 11:17 05/02/17 16:23 05/02/17 20:46 05/03/17 05:18 Bedside Glucose 110 mg/dl 228 mg/dl 167 mg/dl White Blood Count 6.83 K/uL Red Blood Count 3.56 M/uL Hemoglobin 10.3 g/dL Hematocrit 31.1 % Mean Corpuscular Volume 87.4 fL Mean Corpuscular Hemoglobin 28.9 pg Mean Corpuscular Hemoglobin Concent 33.1 g/dl Platelet Count 105 K/uL Mean Platelet Volume 11.7 fL Neutrophils (%) (Auto) 69.1 % Lymphocytes (%) (Auto) 16.5 % Monocytes (%) (Auto) 10.2 % Eosinophils (%) (Auto) 2.9 % Basophils (%) (Auto) 0.3 % Neutrophils # (Auto) 4.71 K/uL Lymphocytes # (Auto) 1.13 K/uL Monocytes # (Auto) 0.70 K/uL Eosinophils # (Auto) 0.20 K/uL Basophils # (Auto) 0.02 K/uL RDW Standard Deviation 45.2 fL RDW Coefficient of Variation 14.5 % Immature Granulocyte % (Auto) 1.0 % Immature Granulocyte # (Auto) 0.07 K/uL Sodium Level 132 mmol/L Potassium Level 3.9 mmol/L Chloride Level 95 mmol/L Carbon Dioxide Level 26 mmol/L Anion Gap 11.0 mmol/L Blood Urea Nitrogen 60 mg/dl Creatinine 5.50 mg/dl Est Creatinine Clear Calc Drug Dose 16.8 ml/min Estimated GFR () 11.9 Estimated GFR (Non- 10.3 BUN/Creatinine Ratio 10.9 Random Glucose 134 mg/dl Calcium Level 8.5 mg/dl Test 05/03/17 07:01 Activated Partial Thromboplast Time 73.0 SECONDS Partial Thromboplastin Ratio 2.8 Imaging: EKG: Telemetry reviewed: Assessment and Plan 1. Cardiovascular-Aflutter, low EF -Pt had a 5 vessel CABG in 2013 -EF 20-25 %, LV function severely reduced -Aflutter--patient controlled with carvedilol and low dose digoxin. 2. Acute renal failure -baseline Cr 3-4, today 5.5 (down from 6.4 yesterday). Potassium is WNL -Dialysis is well tolerated -Right side overload: Pts is feeling better in regards to volume. Edema in legs is less firm, abdomen is soft and less distended. -Pt does not complain of SOB and has normal O2 sats. RESIDENT NOTE--please refer to Dr. Ballesteros's note for comprehensive cardio recommendations
[2017-05-03] MEDS ORDERED: INSULIN GLARGINE SOLOSTAR 100 UNITS/ML 3 ML PEN SC SCH (12:00)
--- NOTE | 2017-05-03 14:16 | Medical Student: [facility] ---
Med Student Progress Note Date of Service May 03, 2017. Subjective Pt evaluation today including: conversation w/ patient, physical exam Rubio is feeling well today. He wants to go home today and continue his dialysis on Saturday. He did not have any questions or concerns. He feels that he is walking ok and denies shortness of breath and chest pain. He continues to have urine output. Denies fever, chills, n/v/d, CVA tenderness, blood in urine or stool Review of Systems Constitutional: No fever, No chills, No sweats Respiratory: No cough, No sputum, No wheezing, No shortness of breath, No dyspnea on exertion, No dyspnea at rest, No hemoptysis, No problem reported Cardiac: + edema, No chest pain, No orthopnea, No PND, No claudication, No palpitations Abdomen: No pain, No nausea, No vomiting, No diarrhea, No constipation, No GI bleeding, No problem reported Objective Vital Signs Date Time Temp Pulse Resp B/P (MAP) Pulse Ox O2 Delivery O2 Flow Rate FiO2 05/03/17 12:00 Room Air 05/03/17 10:58 36.6 72 18 92/62 (72) 96 Room Air 05/03/17 08:00 Room Air 05/03/17 07:03 36.5 99 16 112/72 (85) 95 Room Air 05/03/17 04:00 Room Air 05/03/17 03:40 36.4 96 20 113/71 (85) 94 Room Air 05/02/17 23:59 Room Air 05/02/17 23:40 37.4 94 18 101/67 (78) 96 Room Air 05/02/17 20:00 36.5 95 20 88/64 (72) 96 Room Air 05/02/17 20:00 Room Air 05/02/17 17:00 108 91 05/02/17 16:25 78 96/62 (73) 95 05/02/17 16:10 74 05/02/17 16:00 114 99 05/02/17 15:49 94 Room Air 05/02/17 15:30 141 94 05/02/17 14:32 113 /66 (44) 94 05/02/17 14:30 83 98 05/02/17 14:16 74 99/62 (74) 96 05/02/17 14:01 83 102/70 (81) 98 Physical Exam General Appearance: WD/WN, no apparent distress Eyes: bilateral eyes normal inspection ENT: hearing grossly normal Neck: supple, no JVD, no carotid bruits, trachea midline Respiratory/Chest: chest non-tender, lungs clear, normal breath sounds, no respiratory distress, no accessory muscle use Cardiovascular: no JVD, no murmur, + tachycardia, + normal peripheral pulses Abdomen: normal bowel sounds, non tender, soft, no pulsatile mass Extremities: no calf tenderness, normal capillary refill, + pedal edema (1+ bilaterally. Skin is under alot of tension due to fluid) Neurologic/Psychiatric: no motor/sensory deficits, alert, normal mood/affect, oriented x 3 Laboratory Results Last 24 Hours Test 05/02/17 16:23 05/02/17 20:46 05/03/17 05:18 05/03/17 07:01 Bedside Glucose 228 mg/dl 167 mg/dl White Blood Count 6.83 K/uL Red Blood Count 3.56 M/uL Hemoglobin 10.3 g/dL Hematocrit 31.1 % Mean Corpuscular Volume 87.4 fL Mean Corpuscular Hemoglobin 28.9 pg Mean Corpuscular Hemoglobin Concent 33.1 g/dl Platelet Count 105 K/uL Mean Platelet Volume 11.7 fL Neutrophils (%) (Auto) 69.1 % Lymphocytes (%) (Auto) 16.5 % Monocytes (%) (Auto) 10.2 % Eosinophils (%) (Auto) 2.9 % Basophils (%) (Auto) 0.3 % Neutrophils # (Auto) 4.71 K/uL Lymphocytes # (Auto) 1.13 K/uL Monocytes # (Auto) 0.70 K/uL Eosinophils # (Auto) 0.20 K/uL Basophils # (Auto) 0.02 K/uL RDW Standard Deviation 45.2 fL RDW Coefficient of Variation 14.5 % Immature Granulocyte % (Auto) 1.0 % Immature Granulocyte # (Auto) 0.07 K/uL Sodium Level 132 mmol/L Potassium Level 3.9 mmol/L Chloride Level 95 mmol/L Carbon Dioxide Level 26 mmol/L Anion Gap 11.0 mmol/L Blood Urea Nitrogen 60 mg/dl Creatinine 5.50 mg/dl Est Creatinine Clear Calc Drug Dose 16.8 ml/min Estimated GFR () 11.9 Estimated GFR (Non- 10.3 BUN/Creatinine Ratio 10.9 Random Glucose 134 mg/dl Calcium Level 8.5 mg/dl Activated Partial Thromboplast Time 73.0 SECONDS Partial Thromboplastin Ratio 2.8 Test 05/03/17 10:58 05/03/17 13:45 Bedside Glucose 241 mg/dl Assessment and Plan Assessment and Plan: Rubio is a 62 yo male with multiple comorbidities including CKD stage 4, CAD s/p CABG, CHF, DM type 2 with neuropathy who presented with tachycardia and lower extremity edema. Since then he has underwent a tunneled line placement in the right jugular for hemodialysis. Following hemodialysis today, he is likely to go home then continue dialysis on Saturday. He has no complaints today but strongly desires to go home today. Telemetry continues to show atrial flutter with ventricular rate in the 70's. Ulcer on left leg improving. Atrial Flutter: - Continues to have atrial flutter - Ventricular rate in 70's - Asymptomatic - Troponin negative - BNP elevated - CK-MB 3.7 - Vitals within normal limits - Continue digoxin 0.125 mg daily, Carvedilol 6.25 mg BID, Metoprolol 2.5 mg Q4 PRN, Heparin, Aspirin 325mg daily - Remain on Telemetry until discharge Diabetes with neuropathy: - No complaints at this time - Recent glucose 134 - Currently on sliding scale insulin - Continue on insulin sliding scale with checks with meals - Continue gabapentin 100mg BID - Switch to home meds at discharge Edema with Left nowak ulcer: - Ulcer healing well, non-bothersome to patient - Edema improving (compared to Dr. Bustillo's H&P description) - Tolerating medications well, no K disturbances - Continue Furosemide 40 mg BID and Ciprofloxacin 500mg HS - Promote elevation and ambulation - Replace dressing prior to discharge Other: - Continue Vitamin B Complex/ Vit C/ Folic acid, Docusate sodium 100mg BID, Calcium Carbonate, Calcitriol, Acetaminophen PRN, Zofran PRN, Diltiazem PRN, [place] PRN
[2017-05-03 15:02] LABS: PARTIAL THROMBOPLASTIN RATIO 2.8
[2017-05-03] MEDS ORDERED: LSX40 PO (16:04)
[2017-05-03] MEDS ORDERED: CPR500 PO (16:04)
[2017-05-03] MEDS ORDERED: NRN100 PO (16:04)
[2017-05-03] MEDS ORDERED: HYDR-5688 PO (16:04)
[2017-05-03] MEDS ORDERED: INSDGIPEN SC (16:04)
[2017-05-03] MEDS ORDERED: LNX125 PO (16:04)
[2017-05-03] MEDS ORDERED: CMD5 PO (16:05)
--- NOTE | 2017-05-03 16:15 | Discharge Instructions ---
Discharge Instructions Date of Service May 03, 2017. Admission Reason for Admission: Acute Renal Failure, Atrial Flutter Discharge Discharge Diagnosis / Problem: ESRD, atrial flutter, leg wound, DM type II Discharge Goals Goal(s): Improve function, Improve disease control, Therapeutic intervention ( hemodialysis on Saturday at [facility]) Activity Recommendations Activity Limitations: resume your previous activity Lifting Limitations: none Exercise/Sports Limitations: as tolerated May Resume Sexual Activity: when tolerated Shower/Bathe: keep incision dry (keep catheter dry) . Instructions / Follow-Up Instructions / Follow-Up Medications: - DIGOXIN: added to control atrial flutter, once daily, follow instruction from cardiology - LASIX: dose decreased to 40mg twice a day from previous dosing - COUMADIN: take for stroke prevention with atrial flutter, start at 5mg daily, dose is due tomorrow, check INR at hemodialysis, cardiology will give further dosing instructions - CIPRO: take once a day in the evening for leg wound, needs to be in the evening due to hemodialysis - GABAPENTIN: note that dose decreased to 100mg twice a day - NORCO: take as needed for pain, do not take more than prescribed - LANTUS: 10 units once a day in the morning, this replaces the combination Metformin/Glipizide that you were taking, you can no longer take the pills due to renal failure End stage renal failure: progressed to needing dialysis, plan to continue hemodialysis until peritoneal catheter placed, next HD session on Saturday, call office for time [phone] Max with nephrology [phone] Atrial flutter: Coreg and digoxin for rate control, started on Coumadin for stroke prevention, check INR at dialysis unit with results to Dr. Goyal's office follow up with Dr. Goyal at [place] office in 2 weeks [phone] Leg wound: complete 10 more days of Cipro at night Diabetes: follow low carbohydrate diet, now taking Lantus 10 units in the AM FOLLOW UP [facility] weeks - Dr. Goyla in two weeks - Dr. Gaston in a week for peritoneal dialysis catheter placement, call his office on Saturday to schedule procedure or visit, Current Hospital Diet Patient's current hospital diet: Renal Diet, Diabetes Type 2 Diet Discharge Diet Recommended Diet: AHA Diet (Heart Healthy), Diabetes Type 2 Diet Procedures Procedures Performed: Insertion of Perm Cath, Right Jugular Vein Apprroach Ultrasound Localization of Right Internal Jugular Vein Fluoscopy for Positioning Pending Studies Studies pending at discharge: no Laboratory Results Hemoglobin A1c Test 05/01/17 05:14 Range/Units Estimated Average Glucose 214 mg/dl Hemoglobin A1c 9.1 H 4.5-5.6 % Medical Emergencies . Who to Call and When: Medical Emergencies: If at any time you feel your situation is an emergency, please call 911 immediately. . Non-Emergent Contact Non-Emergency issues call your: Primary Care Provider, Shop Mechanic Helper, Band Saw Operator Call Non-Emergent contact if: you have a fever, you have any medication questions . . "Provider Documentation" section prepared by Chaz Dean. . VTE Core Measure Inpt VTE Proph given/why not?: Warfarin (Coumadin) [place] Drug Monitoring Program Search Results: no issues identified
[2017-05-03] MEDS ORDERED: WARFARIN SOD 5 MG TAB PO ONE (16:30)
--- NOTE | 2017-05-03 18:00 | Progress Note ---
Subjective Date of Service: May 02, 2017. Subjective Pt evaluation today including: conversation w/ patient, conversation w/ family , physical exam, chart review, lab review, review of studies, conversation w/ pension consultant, review of inpatient medication list Pt resting comfortably in bed No chest discomfort No complaints or concerns overnight Agreeable to transfer to tele Problem List Medical Problems: (1) Atrial fibrillation with RVR Status: Acute (2) Dehydration Status: Acute Review of Systems Constitutional: No fever, No chills, No sweats, No weight loss ENT: No hearing loss, No unusual epistaxis, No nasal symptoms, No sore throat Respiratory: No cough, No sputum, No wheezing, No shortness of breath Cardiac: No chest pain, No orthopnea, No PND, No edema Abdomen: No pain, No nausea, No vomiting, No diarrhea, No constipation Musculoskeletal: No joint pain, No muscle pain, No swelling, No calf pain Male : No dysuria, No urinary frequency, No incontinence, No slowing stream Neurologic: No see HPI, No weakness, No numbness/tingling, No vertigo, No balance problems, No problem reported Psychiatric: No see HPI, No depression symptoms, No anhedonism, No anxiety, No insomnia, No substance abuse, No problem reported Skin: No see HPI, No rash, No itch, No new/changing skin lesions, No color change, No bleeding, No problem reported Objective Vital Signs Date Time Temp Pulse Resp B/P (MAP) Pulse Ox O2 Delivery O2 Flow Rate FiO2 05/03/17 17:15 68 111/60 05/03/17 17:00 68 92/61 05/03/17 16:45 70 99/50 05/03/17 16:30 102 115/68 05/03/17 16:15 64 99/51 05/03/17 16:10 64 99/51 05/03/17 16:00 36.4 75 102/51 (68) 05/03/17 16:00 Room Air 05/03/17 15:49 36.7 78 21 147/66 (93) 100 05/03/17 15:17 36.6 84 17 102/76 (85) 95 Room Air 05/03/17 12:00 Room Air 05/03/17 10:58 36.6 72 18 92/62 (72) 96 Room Air 05/03/17 08:00 Room Air 05/03/17 07:03 36.5 99 16 112/72 (85) 95 Room Air 05/03/17 04:00 Room Air 05/03/17 03:40 36.4 96 20 113/71 (85) 94 Room Air 05/02/17 23:59 Room Air 05/02/17 23:40 37.4 94 18 101/67 (78) 96 Room Air 05/02/17 20:00 36.5 95 20 88/64 (72) 96 Room Air 05/02/17 20:00 Room Air Physical Exam General Appearance: WD/WN, no apparent distress Eyes: normal inspection, PERRL, EOMI, sclerae normal Neck: supple, no adenopathy, thyroid normal, no JVD Respiratory/Chest: chest non-tender, lungs clear, normal breath sounds, no respiratory distress Cardiovascular: no edema, no gallop, no JVD, + irregularly irregular Abdomen: normal bowel sounds, non tender, soft, no organomegaly Extremities: normal range of motion, non-tender, normal inspection, no pedal edema Neurologic/Psychiatric: no motor/sensory deficits, alert, normal mood/affect, oriented x 3 Skin: normal color, warm/dry Lymphatic: no adenopathy Laboratory Results Last 24 Hours Test 05/02/17 20:46 05/03/17 05:18 05/03/17 07:01 05/03/17 10:58 Bedside Glucose 167 mg/dl 241 mg/dl White Blood Count 6.83 K/uL Red Blood Count 3.56 M/uL Hemoglobin 10.3 g/dL Hematocrit 31.1 % Mean Corpuscular Volume 87.4 fL Mean Corpuscular Hemoglobin 28.9 pg Mean Corpuscular Hemoglobin Concent 33.1 g/dl Platelet Count 105 K/uL Mean Platelet Volume 11.7 fL Neutrophils (%) (Auto) 69.1 % Lymphocytes (%) (Auto) 16.5 % Monocytes (%) (Auto) 10.2 % Eosinophils (%) (Auto) 2.9 % Basophils (%) (Auto) 0.3 % Neutrophils # (Auto) 4.71 K/uL Lymphocytes # (Auto) 1.13 K/uL Monocytes # (Auto) 0.70 K/uL Eosinophils # (Auto) 0.20 K/uL Basophils # (Auto) 0.02 K/uL RDW Standard Deviation 45.2 fL RDW Coefficient of Variation 14.5 % Immature Granulocyte % (Auto) 1.0 % Immature Granulocyte # (Auto) 0.07 K/uL Sodium Level 132 mmol/L Potassium Level 3.9 mmol/L Chloride Level 95 mmol/L Carbon Dioxide Level 26 mmol/L Anion Gap 11.0 mmol/L Blood Urea Nitrogen 60 mg/dl Creatinine 5.50 mg/dl Est Creatinine Clear Calc Drug Dose 16.8 ml/min Estimated GFR () 11.9 Estimated GFR (Non- 10.3 BUN/Creatinine Ratio 10.9 Random Glucose 134 mg/dl Calcium Level 8.5 mg/dl Activated Partial Thromboplast Time 73.0 SECONDS Partial Thromboplastin Ratio 2.8 Test 05/03/17 14:12 05/03/17 16:22 Activated Partial Thromboplast Time 73.0 SECONDS Partial Thromboplastin Ratio 2.8 Bedside Glucose 88 mg/dl Assessment and Plan 62yo male with h/o chronic systolic CHF - EF 25-30%, CKD stage 4, CAD s/p CABG, PAD, and uncontrolled T2DM presenting with acute renal failure and rapid a. flutter. A. flutter - appropriately contolled on cardizem drip, metorpolol and digoxin, asymptomatic Heparin drip has been continued Will likely require coumadin due to renal impairment Cardiology consulted Echo EF25%, severe LV dysfunction chronic systolic CHF - last known EF 25-50% on echo 09/2016. He appears mildly volume overloaded but fortunately O2 sats are normal. acute renal failure in the setting of CKD stage 4 - he appears mildly volume overloaded (mainly right-sided signs) and is mildly acidotic. Potassium is normal. Nephrology consulted Cont IV lasix Vascular surg consulted, permacath placed and possibly place PD cath in next 1- 2 weeks T2DM - novolog sliding scale for now. Oral agents discontinued. PAD - noted; continue aspirin. Records suggest he has been intolerant to all statins. DVT proph - heparin infusion. Diabetic neuropathy - will continue the gabapentin but reduce the dose to 100mg BID in light of his acute renal failure. CAD with prior CABG - serial troponins to r/o ACS. Cont aspirin. Low-dose beta brenda if BP can tolerate.
[2017-05-03] MEDS: DIGOXIN 0.125 MG TAB PO SCH (19:44)
[2017-05-03] MEDS ORDERED: CIPROFLOXACIN 500 MG TAB PO SCH (21:00)
--- NOTE | 2017-05-05 14:13 | Discharge Summary ---
Discharge Summary Date of Service May 03, 2017. Discharge Summary Admission Date: Apr 29, 2017 at 20:35 Discharge Date: May 03, 2017 Discharge Disposition: Home Principal Diagnosis: ESRD, now on HD Problems/Secondary Diagnoses: Atrial flutter Chronic systolic heart failure DM type II Peripheral neuropathy Procedures: Right IJ permacath placement Hemodialysis Consultations: Nephrology Cardiology Vascular surgery Entertainment Usher Medication Reconciliation New Medications: Warfarin Sod (Coumadin) 5 Mg Tab 5 MG PO DAILY for 30 Days, #30 TABS 3 Refills Ciprofloxacin (Ciprofloxacin HCl) 500 Mg Tab 500 MG PO HS, #10 TAB 0 Refills Digoxin (Digoxin) 0.125 Mg Tab 0.125 MG PO DAILY@16, #30 TAB 3 Refills Furosemide (Furosemide) 40 Mg Tab 40 MG PO BID17, #60 TAB 3 Refills Gabapentin (Gabapentin) 100 Mg Cap 100 MG PO BID, #60 CAP 3 Refills Hydrocodone/Acetaminophen 5MG/325MG (D[place] 5MG/325MG) Tab 1 TAB PO Q4H PRN for MODERATE PAIN, #20 TAB 0 Refills PRN PAIN Insulin Glargine (Lantus Solostar) 100 Unit/Ml Inj 10 UNITS SC DAILY, #1 BOX 3 Refills Continued Medications: Aspirin (Aspirin) 325 Mg Tab 325 MG PO DAILY Calcitriol (Rocaltrol) 0.5 Mcg Cap 0.5 MCG PO 3XWK Carvedilol (Coreg) 6.25 Mg Tab 6.25 MG PO BID, TAB Docusate Sodium (Colace) 100 Mg Cap 100 MG PO HS, CAP Ergocalciferol (Vitamin D 80816 Unit) 50,000 Unit Cap 30683 UNIT PO WK, CAP Fenofibrate (Tricor ) 145 Mg Tab 145 MG PO DAILY, TAB Fish Oil (Henley-3) 1 Ea Cap 1 CAP PO DAILY, CAP Nitroglycerin (Nitrostat) 0.4 Mg Tab 0.4 MG UT PRN, BTL Discontinued Medications: Furosemide (Lasix) 40 Mg Tab 120 MG PO TID, TAB Gabapentin (Neurontin) 300 Mg Cap 300 MG PO BID, CAP Glyburide-Metformin (Glyburide/Metformin Hcl) 1 Tab Tab 2 TAB PO BID 5/500MG Lactulose (Chronulac) 10 Gm/15 Ml Syrp 30 ML PO BID Lisinopril (Zestril) 20 Mg Tab 20 MG PO DAILY, TAB Metolazone (Zaroxolyn) 5 Mg Tab 5 MG PO MWF, TAB Discharge Exam Patient feeling well on the day of discharge, no issues overnight. He had hemodialysis in the afternoon. Cleared for discharge by nephrology, plans for HD at the [facility] on Monday 05/07 Cleared for discharge by cardiology as well, started on Coumadin for anticoagulation, follow up with Dr. Goyal discussed plans for peritoneal dialysis catheter, patient said he planned to discuss with Dr. Max Review of Systems: Constitutional: No fever, No chills, No sweats, No weight loss, No weakness , No fatigue, No problem reported Eyes: No worsening of vision, No eye pain, No redness, No discharge, No diplopia, No problem reported ENT: No hearing loss, No unusual epistaxis, No nasal symptoms, No sore throat, No tinnitus, No dental problems, No trouble swallowing, No problem reported Respiratory: No cough, No sputum, No wheezing, No shortness of breath, No dyspnea on exertion, No dyspnea at rest, No hemoptysis, No problem reported Cardiovascular: No chest pain, No orthopnea, No PND, No edema, No claudication, No palpitations, No problem reported Abdomen: No pain, No nausea, No vomiting, No diarrhea, No constipation, No GI bleeding, No problem reported Musculoskeletal: No joint pain, No muscle pain, No swelling, No calf pain, No problem reported Genitourinary - Male: No hematuria, No dysuria, No urinary frequency, No urinary urgency Neurologic: + numbness/tingling (lower legs, chronic), No memory loss, No paralysis, No weakness, No vertigo, No balance problems, No problem reported Psychiatric: No depression symptoms, No anhedonism, No anxiety, No insomnia , No substance abuse, No problem reported Endocrine: No fatigue, No excessive thirst, No excessive urination, No problem reported Hematologic / Lymphatic: No abnormal bleeding/bruising, No clotting problems , No swollen lymph nodes, No night sweats, No problem reported Integumentary: No rash, No itch, No new/changing skin lesions, No color change, No bleeding, No problem reported Physical Exam: General Appearance: WD/WN, no apparent distress Eyes: normal inspection, EOMI, funduscopic exam normal ENT: normal ENT inspection, hearing grossly normal, pharynx normal Neck: supple, no adenopathy, no JVD, trachea midline, + pertinent finding ( right permacath in place) Respiratory/Chest: chest non-tender, lungs clear, normal breath sounds, no respiratory distress, no accessory muscle use Cardiovascular: regular rate, rhythm, no edema, no gallop, no JVD, no murmur , normal peripheral pulses Abdomen / GI: normal bowel sounds, non tender, soft, no organomegaly Extremities: normal inspection, no calf tenderness, normal capillary refill , no pedal edema, normal range of motion, pelvis stable Neurologic/Psychiatric: safety attendant II-XII nml as tested, no motor/sensory deficits , alert, normal mood/affect, normal reflexes, oriented x 3 Skin: normal color, warm/dry, no rash Hospital Course 62yo male with h/o chronic systolic CHF - EF 25-30%, CKD stage 4, CAD s/p CABG, PAD, and uncontrolled T2DM presenting with acute renal failure and rapid a. flutter. A. flutter - rates controlled on Coreg and Digoxin was added, no need for diltiazem on discharge would need a Digoxin level in next few weeks, follow with Dr. Goyal Heparin drip during admission for anticoagulation, started on Coumadin 5mg daily check INR on Saturday at dialysis, results to Dr. Goyal's office Cardiology consulted, Dr. Ballesteros cleared for discharge from cardiology perspective Echo EF25%, severe LV dysfunction, chronic issue, no new changes Acute renal failure in the setting of CKD stage 4 - now progressed to ESRD on HD permacath placed by Dr. Gaston, patient tolerated several sessions of hemodialysis plan for HD on Monday 05/07 at [place] will get peritoneal catheter in the next 1-2 weeks, given number to call Dr. Gaston's office on Saturday follow with Dr. Max continue Lasix 40mg PO BID electrolytes stable the day of discharge chronic systolic CHF - last known EF 25-50% on echo 09/2016 mildly volume overloaded on admission, corrected with ultrafiltration with dialysis euvolemic the time of discharge after 3 hours of HD on 05/03 T2DM - previously on oral agents, now contraindicated with ESRD started on Lantus 10 units in the AM per recommendations of pharmacy concerns about compliance with insulin and diabetic diet, however, it is the only option right now PAD - noted; continue aspirin. Records suggest he has been intolerant to all statins. DVT proph - heparin infusion while admitted Diabetic neuropathy - will continue the gabapentin but reduce the dose to 100mg BID in light of his acute renal failure. CAD with prior CABG - serial troponins to r/o ACS. Cont aspirin, Coreg Total Time Spent: Greater than 30 minutes This includes examination of the patient, discharge planning, medication reconciliation, and communication with other providers. Discharge Instructions Please refer to the electronic Patient Visit Report (Discharge Instructions) for additional information. Follow-Up Hemodialysis on 05/07 Dr. Max in [address] Goyal in [address] Gaston for peritoneal catheter placement Additional Copies To Tomás Rodriguez M.D.; Dona Max MD; Ar Gaston M.D.; Josafat Goyal MD
--- NOTE | 2017-05-09 09:00 | Surgery Consultation ---
Consultation Date of Service Apr 30, 2017. Chief Complaint Acute renal failure History of Present Illness The patient is a 62 year old male with past medical history significant for coronary artery disease status post CABG, hypertension, diabetes, stage 4 CKD admitted to the hospital with volume overload. He now requires dialysis. Vitals Vital Signs Past 12 Hours Date Time Temp Pulse Resp B/P (MAP) Pulse Ox O2 Delivery O2 Flow Rate FiO2 05/01/17 06:01 49 16 109/79 (89) 94 Room Air 05/01/17 04:22 116 114/91 05/01/17 04:10 37.0 72 19 114/91 (99) 93 Room Air 05/01/17 04:00 96 Room Air 05/01/17 02:02 86 20 79/43 (55) 96 Room Air 05/01/17 00:29 37.0 84 21 126/55 95 Room Air 05/01/17 00:00 96 Room Air 05/01/17 00:00 36.9 96 21 117/65 (82) 96 Room Air 04/30/17 23:44 115 126/55 04/30/17 22:21 84 21 87/70 (76) 95 Nasal Cannula 2.0 04/30/17 21:10 121 Allergies Coded Allergies: No Known Allergies (Unverified , 04/29/17) Home Medications Scheduled Ciprofloxacin Hcl (Cipro), 500 MG PO HS Digoxin (Digoxin), 0.125 MG PO DAILY Furosemide (Lasix), 40 MG PO BID Gabapentin (Neurontin), 100 MG PO BID Glyburide-Metformin (Glucovance 5/500 Mg), 2 TAB PO BID Insulin Glargine (Lantus Solostar), 10 UNITS SC DAILY Warfarin Sod (Jantoven), 5 MG PO DAILY Problem List Medical Problems: (1) Acute renal failure (2) Afib (3) Anemia (4) Atrial flutter (5) CHF (congestive heart failure) (6) CKD (chronic kidney disease) stage 4, GFR 15-29 ml/min (7) Diabetic polyneuropathy (8) Hyperphosphatemia (9) Metabolic acidosis (10) Volume overload Surgical / Medical History Hx Cardiac Surgery: Yes (CABG) Past Medical/Surgical History: CHF, Heart Disease, Hypertension, Kidney Disease Family History No pertinent family history Social History Smoking Status: Current Every Day Smoker Hx Tobacco Use In Past Year?: No Hx Alcohol Use - Type & Amnt: No Hx Substance Use -Type & Amnt: No Review of Systems Respiratory: No cough, No cyanosis, No ROMANO, No hemoptysis, No orthopnea, No PND , No short of breath, No sputum production, No stridor, No wheezing, No dyspnea , No problem reported Cardiovascular: + palpitations, No chest pain, No chest tightness, No chest pressure, No syncope, No diaphoresis, No edema, No intermittent claudication, No orthopnea, No cyanosis, No mumur, No lightheadedness, No paroxysmal nocturnal dyspnea, No problem reported Gastrointestinal: No abdominal pain, No constipation, No diarrhea, No nausea, No vomiting, No anorexia, No appetite changes, No belching, No flatulence, No food intolerance, No hematemesis, No hemorrhoids, No hematochezia, No stool changes, No heartburn, No indigestion, No dysphagia, No rectal bleeding, No problem reported Musculoskeletal: No back pain, No gout, No joint pain, No joint swelling, No muscle pain, No muscle stiffness, No muscle weakness, No neck pain, No problem reported Psychiatric: No anxiety, No alcohol abuse, No auditory hallucinations, No depression, No drug abuse, No homicidal ideation, No mood changes, No suicidal ideation, No visual hallucinations, No problem reported Physical Exam Constitutional: General Apperance: heathly-appearing, well-nourished, well-developed Level of Distress: NAD Ambulation: ambulating normally Psychiatric: Mental Status: active & alert, normal mood, normal affect Orientation: oriented except where noted, to time, to place, to person Memory: recent memory normal, remote memory normal Lungs: Auscultation: breath sounds normal Cardiovascular: Heart Auscultation: RRR Peripheral Pulses: Radial Pulse: normal on the left, normal on the right Femoral Pulse: normal on the left, normal on the right Abdomen: Inspection & Palpation: soft Musculoskeletal: normal Extremities: Upper Right: no cyanosis, no edema, no varicosities, no palpable cord, no clubbing, no ulcers, no mottling Upper Left: no cyanosis, no edema, no palpable cord, no clubbing, no ulcers , no mottling Lower Right: no cyanosis, no edema, no varicosities, no palpable cord, no clubbing, no ulcers, no mottling Lower Left: no cyanosis, no edema, no varicosities, no palpable cord, no clubbing, no ulcers, no mottling Neurologic: Cranial Nerves: grossly intact Sensation: grossly intact Assessment and Plan Imp: Acute renal failure Plan: Patient would like a PD catheter insertion. Would recommend insertion of a permcath and then schedule a PD catheter electively Patient will decide if he agrees.
[2017-05-10] MEDS ORDERED: ASPEC81 PO (13:11)
[2017-05-10] MEDS ORDERED: CRG125 PO (13:11)
[2017-05-21] MEDS ORDERED: LOVEN (08:42)
[2017-05-21] MEDS ORDERED: HYDR-5688 PO (08:42)
[2017-05-21] MEDS ORDERED: ENOX30IN4 SQ (08:42)
[2017-06-20] MEDS ORDERED: ZLF50 PO (16:52)
[2017-06-20] MEDS ORDERED: DAPT500I IV (16:54)
== END 2017-05-03 19:30 | disposition home health service (06) | DRG 308 ==
LOC: C.EDB 16:29 → C.MSICU 20:35 → ENRESERV 21:03 → C.2E 05-02 23:31
PROVIDERS: ADMIT Internal Medicine; ATTEND Internal Medicine
PROC: 05HM33Z Insertion of Infusion Device into Right Internal Jugular Vein, Percutaneous Approach (ICD-10-PCS; principal; 2017-05-01 13:00)
DX: I48.92 Unspecified atrial flutter (principal); N18.6 End stage renal disease; I50.23 Acute on chronic systolic (congestive) heart failure; N17.9 Acute kidney failure, unspecified; E87.2 Acidosis; I13.2 Hypertensive heart and chronic kidney disease with heart failure and with stage 5 chronic kidney disease, or end stage renal disease; I49.9 Cardiac arrhythmia, unspecified; I48.91 Unspecified atrial fibrillation; E86.0 Dehydration; E11.42 Type 2 diabetes mellitus with diabetic polyneuropathy; I25.10 Atherosclerotic heart disease of native coronary artery without angina pectoris; I25.2 Old myocardial infarction; Z95.1 Presence of aortocoronary bypass graft; Z87.891 Personal history of nicotine dependence; Z79.82 Long term (current) use of aspirin; I73.9 Peripheral vascular disease, unspecified; E87.70 Fluid overload, unspecified; D64.9 Anemia, unspecified; E83.39 Other disorders of phosphorus metabolism; Z91.14 Patient's other noncompliance with medication regimen; E11.22 Type 2 diabetes mellitus with diabetic chronic kidney disease

== ENCOUNTER 2017-05-07 12:58 | Inpatient (IN) | payer OTHER ==
[~2017-05-07] VITALS: Ht 180.3 cm; Wt 101.0 kg
[~2017-05-07 12:58] MED LIST changes: -ASPEC81 PO; -B-COCAP20 PO; -CIPR1TAB10 PO; -CLOP1TAB15 PO; -CRG125 PO; -DAPT500I IV; -ENOX30IN4 SQ; -FRS/40 PO; -GABA-112 PO; -GABA-113 PO; -GABA1CAP PO; -GABA800T PO; -GLY/5 PO; -GLYB-236 PO; -GLYB5TAB3 PO; -HYDR-4452 PO; -INSDGI SC; -INSU1INJ2 SC; -INSU1MIS SC; -LACT10SO17 PO; -LISI-725 PO; -LORA-741 PO; -LOVEN; -METO25TA3 PO; -METO5TAB25 PO; -MIDO5TAB PO; -NRN/300 PO; -NVLG SC; -PSYL48.59; -VANC1INJ94 IV; -WARF5TAB7 PO; -ZLF50 PO
[2017-05-07] MEDS ORDERED: METOPROLOL TARTRATE 1 MG/ML VIAL IV STA (13:15)
--- NOTE | 2017-05-07 13:22 | EMERGENCY ROOM VISIT NOTE ---
History Report prepared by Jin: Hayley Mckeon Under the Supervision of: Dr. Brian Peck M.D. First contact with patient: 13:05 Chief Complaint: CARDIAC ASSESSMENT Stated Complaint: HIGH HEART RATE, SENT BY DIALYSIS Nursing Triage Summary: triage note: pt reports he was at dialysis and his heart rate was high so he was sent to the ed for further eval. History of Present Illness The patient is a 62 year old male who presents to the Emergency Room with complaints of sudden tachycardia beginning prior to arrival. The patient was sent from the dialysis center. He denies having chest pain. Source of History: patient Onset: prior to arrival Position: other (global) Quality: other (tachycardia) Timing: other (sudden) Associated Symptoms: No chest pain Review of Systems See HPI for pertinent positives & negatives. A total of 10 systems reviewed and were otherwise negative. Past Medical & Surgical Medical Problems: (1) Acute renal failure (2) Afib (3) Anemia (4) Atrial flutter (5) CHF (congestive heart failure) (6) Chronic systolic CHF (congestive heart failure) (7) CKD (chronic kidney disease) stage 4, GFR 15-29 ml/min (8) Diabetic polyneuropathy (9) ESRD (end stage renal disease) on dialysis (10) Hyperphosphatemia (11) Metabolic acidosis (12) Volume overload Family History No pertinent family history Social History Smoking Status: Former Smoker Drug Use: none Marital Status: Housing Status: lives with family Occupation Status: disabled Current/Historical Medications Scheduled Ciprofloxacin Hcl (Cipro), 500 MG PO HS Digoxin (Digoxin), 0.125 MG PO DAILY Furosemide (Lasix), 40 MG PO BID Gabapentin (Neurontin), 100 MG PO BID Glyburide-Metformin (Glucovance 5/500 Mg), 2 TAB PO BID Insulin Glargine (Lantus Solostar), 10 UNITS SC DAILY Warfarin Sod (Jantoven), 5 MG PO DAILY Allergies Coded Allergies: No Known Allergies (Unverified , 04/29/17) Physical Exam Vital Signs Date Time Temp Pulse Resp B/P (MAP) Pulse Ox O2 Delivery O2 Flow Rate FiO2 05/07/17 15:42 106 118/48 95 Room Air 05/07/17 14:11 76 108/74 95 05/07/17 13:40 79 135/78 98 05/07/17 13:33 131 115/94 8/15/17 13:31 121 20 115/94 99 Room Air 05/07/17 13:17 99 Room Air 05/07/17 13:14 108 05/07/17 13:01 36.4 151 20 118/79 99 Room Air Physical Exam GENERAL: Patient is a healthy-appearing well-nourished male HEAD: Normocephalic atraumatic EYES: Ocular movements intact pupils equal and react to light OROPHARYNX mucous membranes are moist no exudates present no erythema or edema present NECK: Supple no nuchal rigidity CHEST: Good equal expansion LUNGS: Clear and equal to auscultation CARDIAC: Normal S1 and S2 ABDOMEN: Soft nontender no guarding BACK: No CVA tenderness EXTREMITIES: No pain upon palpation normal muscle strength in all groups no clubbing cyanosis or edema NEURO: Patient is following commands and answering questions appropriately. Alert and oriented x3 Cranial Nerves 2-12 grossly intact Medical Decision & Procedures ER Provider Diagnostic Interpretation: X-ray results as stated below per interpretation by me and the radiologist: SINGLE VIEW CHEST CLINICAL HISTORY: Atypical chest pain. FINDINGS: An AP, portable, upright chest radiograph is compared to study dated 04/29/2015. The examination is degraded by portable technique and patient rotation. A right internal jugular central venous catheter is new from previous. The patient is status post midline sternotomy. The heart is enlarged and there is atherosclerotic calcification of the thoracic aorta. The pulmonary vasculature is noncongested. Chronic residual thickening is unchanged. A 1.9 cm nodular density projects over the right lower lung. No airspace consolidation, large pleural effusion, or pneumothorax is seen. The skeletal structures are osteopenic. The bony thorax is grossly intact. IMPRESSION: 1. Cardiomegaly with no acute cardiopulmonary abnormality. 2. A 1.9 cm nodular density projects over the right lower lung. This may represent superimposition of shadows. Follow-up with a dedicated PA and lateral examination is recommended. 3. A right internal jugular central venous catheter is new from previous. Electronically signed by: Tomás Cochran M.D. 05/07/2017 1:55 PM Dictated Date/Time: 05/07/2017 1:53 PM Laboratory Results Test 05/07/17 13:23 05/07/17 13:28 Immature Granulocyte % (Auto) 1.3 % White Blood Count 8.92 K/uL (4.8-10.8) Red Blood Count 3.64 M/uL (4.7-6.1) Hemoglobin 10.3 g/dL (14.0-18.0) Hematocrit 32.8 % (42-52) Mean Corpuscular Volume 90.1 fL (80-100) Mean Corpuscular Hemoglobin 28.3 pg (25-34) Mean Corpuscular Hemoglobin Concent 31.4 g/dl (32-36) Platelet Count 104 K/uL (130-400) Mean Platelet Volume 11.2 fL (7.4-10.4) Neutrophils (%) (Auto) 81.4 % Lymphocytes (%) (Auto) 7.4 % Monocytes (%) (Auto) 6.7 % Eosinophils (%) (Auto) 3.0 % Basophils (%) (Auto) 0.2 % Neutrophils # (Auto) 7.25 K/uL (1.4-6.5) Lymphocytes # (Auto) 0.66 K/uL (1.2-3.4) Monocytes # (Auto) 0.60 K/uL (0.11-0.59) Eosinophils # (Auto) 0.27 K/uL (0-0.5) Basophils # (Auto) 0.02 K/uL (0-0.2) Immature Granulocyte # (Auto) 0.12 K/uL (0.00-0.02) Activated Partial Thromboplast Time 28.9 SECONDS (21.0-31.0) Partial Thromboplastin Ratio 1.1 Est Creatinine Clear Calc Drug Dose 17.4 ml/min Total Bilirubin 0.6 mg/dl (0.2-1) Direct Bilirubin 0.2 mg/dl (0-0.2) Aspartate Amino Transf (AST/SGOT) 42 U/L (15-37) Alanine Aminotransferase (ALT/SGPT) 58 U/L (12-78) Alkaline Phosphatase 201 U/L (45-117) Total Creatine Kinase 36 U/L (39-308) Creatine Kinase MB 1.3 ng/ml (0.5-3.6) Creatine Kinase MB Ratio 3.6 (0-3.0) Troponin I 0.064 ng/ml (0-0.045) Pro-B-Type Natriuretic Peptide 01470 pg/ml (0-900) Total Protein 7.1 gm/dl (6.4-8.2) Albumin 3.0 gm/dl (3.4-5.0) Lipase 203 U/L (73-393) Beta-Hydroxybutyric Acid 0.73 mg/dL (0.2-2.81) Digoxin Level 0.8 ng/ml (0.8-2.0) Bedside Hemoglobin 11.6 g/dl (14.0-18.0) Bedside Hematocrit 34 % (42-52) Bedside Sodium 135 mEq/L (135-144) Bedside Potassium 4.1 mEq/L (3.3-5.0) Bedside Chloride 96 mEq/L (101-112) Bedside Total CO2 24 mEq/l (24-31) Bedside Blood Urea Nitrogen 45 mg/dl (7-18) Bedside Creatinine 5.4 mg/dl (0.6-1.3) Bedside Glucose (other) 388 mg/dl (70-99) Bedside Ionized Calcium (Corey) 1.14 mmol/l (1.12-1.32) Labs reviewed by ED physician. Medications Administered Medications (Trade) Dose Ordered Sig/Mikie Route Start Time Stop Time Status Last Admin Dose Admin Metoprolol Tartrate (Lopressor Iv) 15 mg NOW STAT IV 05/07/17 13:15 05/07/17 13:17 DC 05/07/17 13:33 5 MG Insulin Human Regular (novoLIN-R) 10 units NOW STAT SC 05/07/17 13:54 05/07/17 13:55 DC 05/07/17 14:10 10 UNITS Insulin Aspart (novoLOG PER UNIT) 8 units NOW STAT SC 05/07/17 15:53 05/07/17 16:06 DC 05/07/17 16:38 8 UNITS ECG Indication: chest pain Rate (beats per minute): 137 Rhythm: atrial flutter Findings: no acute ischemic change Change: no significant change Change: REPEAT ECG: atrial flutter, rate of 96, no acute ischemic changes, unchanged from previous ED Course 1307: Past medical records reviewed. The patient was evaluated in room C4. A complete history and physical examination was performed. 1315: Ordered Lopressor Iv 15 mg IV. 1345: The patient is doing much better after the Lopressor. 1354: Ordered Insulin Human Regular 10 units SC. 1441: Upon reexamination the patient is resting. I discussed results and treatment plan with the patient. He verbalizes agreement and understanding. [facility] The patient will be evaluated for further management. Medical Decision Differential diagnosis: Etiologies such as cardiac ischemia, aortic dissection, pulmonary embolism, pneumonia, pneumothorax, musculoskeletal, infections, pericarditis, myocarditis , esophageal rupture, gastrointestinal, as well as others were entertained. This is a 62-year-old male who presents emergency department complaining of increased heart rate. He was sent in by dialysis. Upon arrival to the emergency department he has a heart rate of 150 therefore the patient was given IV Lopressor. This caused his heart rate to fall. The patient was much more comfortable. I did discuss the case with both nephrology as well as the hospitalist service who agreed to admit the patient. Patient was in agreement with the treatment plan. Medication Reconcilliation Current Medication List: was personally reviewed by me Blood Pressure Screening Patient's blood pressure: Normal blood pressure Consults Time Called: 1400 Consulting Physician: Dr. [facility] Returned Call: [phone] Upon reexamination the patient is resting. I discussed results and treatment plan with the patient. He verbalizes agreement and understanding. I spoke with Keny from the [facility] Hospitalist Service. The patient will be evaluated for further management. Impression Primary Impression: Atrial fibrillation with rapid ventricular response Scribe Attestation The scribe's documentation has been prepared under my direction and personally reviewed by me in its entirety. I confirm that the note above accurately reflects all work, treatment, procedures, and medical decision making performed by me. Departure Information Dispostion Being Evaluated By Hospitalist Referrals Tomás Rodriguez M.D. (PCP) Patient Instructions My [facility]
[2017-05-07 13:37] LABS: BASO % 0.2 %; BASO ABS # 0.02 K/uL (0-0.2); COMPLETE YES; HEMATOCRIT 32.8 % (42-52); IG% 1.3 %; LYMPH % 7.4 %; LYMPH ABS # 0.66 K/uL (1.2-3.4); MEAN CELL VOLUME 90.1 fL (80-100); MEAN CORPUSCULAR HEMOGLOBIN 28.3 pg (25-34); MEAN CORPUSCULAR HGB CONC 31.4 g/dl (32-36); MEAN PLATELET VOLUME 11.2 fL (7.4-10.4); MONO % 6.7 %; NEUT % 81.4 %; PLATELET COUNT 104 K/uL (130-400); RED BLOOD COUNT 3.64 M/uL (4.7-6.1); WHITE BLOOD COUNT 8.92 K/uL (4.8-10.8)
[2017-05-07 13:39] LABS: ISTAT CREATININE 5.4 mg/dl (0.6-1.3); ISTAT HEMOGLOBIN 11.6 g/dl (14.0-18.0); ISTAT IONIZED CALCIUM 1.14 mmol/l (1.12-1.32)
[2017-05-07 13:49] LABS: INR 1.2 (0.9-1.1); PARTIAL THROMBOPLASTIN RATIO 1.1; PROTHROMBIN TIME (PATIENT) 12.4 SECONDS (9.0-12.0)
[2017-05-07] MEDS ORDERED: INSULIN HUMAN REGULAR SC STA (13:54)
--- NOTE | 2017-05-07 13:56 | DIAGNOSTIC IMAGING REPORT ---
SINGLE VIEW CHEST CLINICAL HISTORY: Atypical chest pain. FINDINGS: An AP, portable, upright chest radiograph is compared to study dated 04/29/2015. The examination is degraded by portable technique and patient rotation. A right internal jugular central venous catheter is new from previous. The patient is status post midline sternotomy. The heart is enlarged and there is atherosclerotic calcification of the thoracic aorta. The pulmonary vasculature is noncongested. Chronic residual thickening is unchanged. A 1.9 cm nodular density projects over the right lower lung. No airspace consolidation, large pleural effusion, or pneumothorax is seen. The skeletal structures are osteopenic. The bony thorax is grossly intact. IMPRESSION: 1. Cardiomegaly with no acute cardiopulmonary abnormality. 2. A 1.9 cm nodular density projects over the right lower lung. This may represent superimposition of shadows. Follow-up with a dedicated PA and lateral examination is recommended. 3. A right internal jugular central venous catheter is new from previous. Electronically signed by: Tomás Cochran M.D. 05/07/2017 1:55 PM Dictated Date/Time: 05/07/2017 1:53 PM
[2017-05-07] MEDS ORDERED: NovoLIN-R INSULIN PER UNIT CHARGE ONE (14:05)
[2017-05-07 14:06] LABS: BUN/CREATININE RATIO 9.4 (10-20); CALCIUM 8.9 mg/dl (8.5-10.1); CKMB/CK RATIO 3.6 (0-3.0); CREATININE 5.4 mg/dl (0.60-1.40); POTASSIUM 4.1 mmol/L (3.5-5.1)
[2017-05-07 14:16] LABS: BETA-HYDROXYBUTYRATE 0.73 mg/dL (0.2-2.81)
[2017-05-07] MEDS ORDERED: WARF5TAB7 PO (14:32)
[2017-05-07] MEDS ORDERED: FRS/40 PO (14:32)
[2017-05-07] MEDS ORDERED: LNX125 PO (14:32)
[2017-05-07] MEDS ORDERED: GLYB5TAB3 PO (14:33)
[2017-05-07] MEDS ORDERED: CIPR1TAB10 PO (14:33)
[2017-05-07] MEDS ORDERED: GABA-112 PO (14:33)
[2017-05-07] MEDS ORDERED: INSDGIPEN SC (14:33)
[2017-05-07] MEDS ORDERED: NovoLOG PER UNIT CHARGE SC STA (15:53)
[2017-05-07] MEDS ORDERED: INSULIN ASPART 100 UNITS/ML 3 ML PEN SC STA (15:53)
[2017-05-07] MEDS ORDERED: INSULIN HUMAN REGULAR SC SCH (16:00)
[2017-05-07] MEDS ORDERED: NITROGLYCERIN 0.4 MG SL PER TAB CHARGE SL PRN (16:45)
[2017-05-07] MEDS ORDERED: CARVEDILOL 3.125 MG TAB PO ONE (16:45)
[2017-05-07] MEDS ORDERED: ACETAMINOPHEN 325 MG TAB PO PRN (16:45)
[2017-05-07] MEDS ORDERED: ONDANSETRON INJ 2 MG/ML 2 ML VIAL IV PRN (16:45)
[2017-05-07] MEDS ORDERED: DEXTROSE 50% 50 ML SYR IV PRN (17:00)
[2017-05-07] MEDS ORDERED: GLUCOSE 10 TABS/TUBE PO PRN (17:00)
[2017-05-07] MEDS ORDERED: GLUCAGON FOR INJ 1 MG VIAL SQ PRN (17:00)
[2017-05-07] MEDS ORDERED: GLUCOSE 40% GEL 15 GM TUBE PO PRN (17:00)
[2017-05-07 17:50] VITALS: BP 97/85; PULSE 152; TEMP 36.6; O2SAT 97; BMI 31.2
--- NOTE | 2017-05-07 18:27 | Medical Student: [facility] ---
Med Student History & Physical Date & Time of Service: May 07, 2017 at 15:36 Chief Complaint: High Heart Rate, Sent By Dialysis Primary Care Physician: Tomás Rodriguez M.D. Past Medical/Surgical History Medical Problems: (1) Atrial fibrillation with rapid ventricular response Status: Acute (2) Atrial fibrillation with RVR Status: Acute (3) CHF (congestive heart failure) Status: Resolved (4) Dehydration Status: Acute Family History Father: pertinent history of Mother: cancer Sibling(s): pertinent history of Grandmother: diabetes Social History Smoking Status: Former Smoker Drug Use: none Marital Status: Housing status: lives with family Occupational Status: disabled Allergies Coded Allergies: No Known Allergies (Unverified , 05/21/17) Medications Aspirin (Aspirin EC Low Dose), 81 MG PO QAM B-Complex W/ C & Folic Acid (Renal), 1 CAP PO BID Carvedilol (Carvedilol), 12.5 MG PO BID Digoxin (Digoxin), 0.125 MG PO Q1600 Docusate Sodium (Colace), 100 MG PO DAILY Fish Oil (Malta-3), 1 CAP PO DAILY Furosemide (Lasix), 40 MG PO BID Gabapentin (Neurontin), 1 CAP PO BID Insulin Aspart (Novolog), 5 UNITS SC TIDM Insulin Glargine (Lantus), 20 UNIT SC QPM Lactulose (Chronulac), 15 ML PO BID PRN for Constipation Midodrine Hcl (Midodrine Hcl), 5 MG PO TID Nitroglycerin (Nitrostat), 0.4 MG UT PRN Psyllium (Metamucil) Vancomycin HCl in Sodium Chlor (VANCOMYCIN in NSS), 500 MG IV UD Warfarin Sod (Jantoven), 0.5 TAB PO DAILY Physical Exam Vital Signs (24 Hours) Date Time Temp Pulse Resp B/P (MAP) Pulse Ox O2 Delivery O2 Flow Rate FiO2 05/07/17 14:11 76 108/74 95 05/07/17 13:40 79 135/78 98 05/07/17 13:33 131 115/94 05/07/17 13:31 121 20 115/94 99 Room Air 05/07/17 13:17 99 Room Air 05/07/17 13:14 108 05/07/17 13:01 36.4 151 20 118/79 99 Room Air Diagnostics Laboratory Results Results Past 24 Hours Test 05/07/17 13:23 05/07/17 13:28 Range/Units White Blood Count 8.92 4.8-10.8 K/uL Red Blood Count 3.64 4.7-6.1 M/uL Hemoglobin 10.3 14.0-18.0 g/dL Hematocrit 32.8 42-52 % Mean Corpuscular Volume 90.1 80-100 fL Mean Corpuscular Hemoglobin 28.3 25-34 pg Mean Corpuscular Hemoglobin Concent 31.4 32-36 g/dl Platelet Count 104 130-400 K/uL Mean Platelet Volume 11.2 7.4-10.4 fL Neutrophils (%) (Auto) 81.4 % Lymphocytes (%) (Auto) 7.4 % Monocytes (%) (Auto) 6.7 % Eosinophils (%) (Auto) 3.0 % Basophils (%) (Auto) 0.2 % Neutrophils # (Auto) 7.25 1.4-6.5 K/uL Lymphocytes # (Auto) 0.66 1.2-3.4 K/uL Monocytes # (Auto) 0.60 0.11-0.59 K/uL Eosinophils # (Auto) 0.27 0-0.5 K/uL Basophils # (Auto) 0.02 0-0.2 K/uL RDW Standard Deviation 48.7 36.4-46.3 fL RDW Coefficient of Variation 15.0 11.5-14.5 % Immature Granulocyte % (Auto) 1.3 % Immature Granulocyte # (Auto) 0.12 0.00-0.02 K/uL Prothrombin Time 12.4 9.0-12.0 SECONDS Prothromb Time International Ratio 1.2 0.9-1.1 Activated Partial Thromboplast Time 28.9 21.0-31.0 SECONDS Partial Thromboplastin Ratio 1.1 Sodium Level 135 136-145 mmol/L Potassium Level 4.1 3.5-5.1 mmol/L Chloride Level 99 98-107 mmol/L Carbon Dioxide Level 26 21-32 mmol/L Anion Gap 10.0 20.0 16-25 mmol/L Blood Urea Nitrogen 51 7-18 mg/dl Creatinine 5.40 0.60-1.40 mg/dl Est Creatinine Clear Calc Drug Dose 17.4 ml/min Estimated GFR () 12.2 Estimated GFR (Non- 10.5 BUN/Creatinine Ratio 9.4 10-20 Random Glucose 385 70-99 mg/dl Calcium Level 8.9 8.5-10.1 mg/dl Total Bilirubin 0.6 0.2-1 mg/dl Direct Bilirubin 0.2 0-0.2 mg/dl Aspartate Amino Transf (AST/SGOT) 42 15-37 U/L Alanine Aminotransferase (ALT/SGPT) 58 12-78 U/L Alkaline Phosphatase 201 45-117 U/L Total Creatine Kinase 36 39-308 U/L Creatine Kinase MB 1.3 0.5-3.6 ng/ml Creatine Kinase MB Ratio 3.6 0-3.0 Troponin I 0.064 0-0.045 ng/ml Pro-B-Type Natriuretic Peptide 98047 0-900 pg/ml Total Protein 7.1 6.4-8.2 gm/dl Albumin 3.0 3.4-5.0 gm/dl Lipase 203 73-393 U/L Beta-Hydroxybutyric Acid 0.73 0.2-2.81 mg/dL Digoxin Level 0.8 0.8-2.0 ng/ml Bedside Hemoglobin 11.6 14.0-18.0 g/dl Bedside Hematocrit 34 42-52 % Bedside Sodium 135 135-144 mEq/L Bedside Potassium 4.1 3.3-5.0 mEq/L Bedside Chloride 96 101-112 mEq/L Bedside Total CO2 24 24-31 mEq/l Bedside Blood Urea Nitrogen 45 7-18 mg/dl Bedside Creatinine 5.4 0.6-1.3 mg/dl Bedside Glucose (other) 388 70-99 mg/dl Bedside Ionized Calcium (Corey) 1.14 1.12-1.32 mmol/l Impression Assessment and Plan Rubio Montgomery is a 62 year old man with Hx of Uncontrolled Type II DM, Chronic Systolic CHF, CKD Stage 4, CAD s/p CABG presenting with rapid Atrial Flutter. 1. Atrial flutter 2. CKD stage 4 3. Type II DM -Manage Blood Glucose with novolog sliding scale -Hold oral agents 4. Chronic systolic CHF -Last Echocardiogram performed 04/30/2017 revealed: * BSA: 2.2 m2 * Severe left ventricular systolic dysfunction. (EF 20-25%) * Moderate to severe right ventricular systolic dysfunction. * Mild biventricular dilatation. * Moderate biatrial dilatation. * Mild mitral regurgitation. * Mild tricuspid regurgitation. 5. Diabetic neuropathy -Continue the gabapentin 100mg PO bid 6. CAD with prior CABG -Continue Aspirin -serial troponins to r/o ACS -Low-dose beta brenda if BP can tolerate. Level of Care Telemetry Resuscitation Status FULL RESUSCITATION
--- NOTE | 2017-05-07 18:29 | Nephrology Consultation ---
Nephrology Consultation Date & Providers Date of Consultation: May 07, 2017. Primary Care Provider: Tomás Rodriguez M.D. Referring Provider: Reason for Consultation ESRD History of Present Illness Mr. Rubio Montgomery was seen and evaluated in the Emergency Department this afternoon. I reviewed the plan of care with Dr. Peck and Dr. Sin. I also spoke with Dr. Jackman. Dr. Jackman saw Mr. Montgomery at the [facility] this morning. The patient presented for his scheduled treatment and was found to be tachycardic with a slightly low blood pressure. Rubio noted some increasing dyspnea and increasing lower extremity edema. He denies lightheadedness, dizziness, syncope or presyncope. He denies chest pain or palpitations. His last dialysis treatment was on . He was resting comfortably at the time of my assessment. He reported confusion regarding his home medications. Rubio was recently admitted to [facility] from April 29 - . He presented with decompensated CHF and atrial flutter. He was rate controlled and started on digoxin and anticoagulation. He had evidence of progressive advanced CKD. Dr. Max had been following Rubio in the CKD clinic. She saw the patient during his hospitalization. A TDC was placed and hemodialysis was started. Rubio hopes to transition to home dialysis in the near future. He has follow up with Dr. Gaston arranged for PD catheter placement. Past Medical/Surgical History Medical: ESRD on HD Ischemic cardiomyopathy Systolic CHF, LVEF 25% CAD HTN DM II Surgical: TDC placement, CABG in 2013, PCI in 2002 Allergies Coded Allergies: No Known Allergies (Unverified , 04/29/17) Inpatient Medications Current Inpatient Medications Medications (Trade) Dose Ordered Sig/Mikie Route Start Time Stop Time Status Last Admin Dose Admin Insulin Human Regular (novoLIN-R) 10 units ACHS SC 05/07/17 16:00 06/06/17 15:59 Insulin Aspart (novoLOG ASPART) 8 units ONE STAT SC 05/07/17 15:53 05/07/17 15:54 UNV Family History No pertinent family history Social History Smoking Status: Former Smoker Drug Use: none Marital Status: Housing Status: lives with family Occupation: disabled Review of Systems A complete review of systems was performed. Pertinent positives are noted above. All other systems are negative. Physical Exam Date Time Temp Pulse Resp B/P (MAP) Pulse Ox O2 Delivery O2 Flow Rate FiO2 05/07/17 15:42 106 118/48 95 Room Air 05/07/17 14:11 76 108/74 95 05/07/17 13:40 79 135/78 98 05/07/17 13:33 131 115/94 05/07/17 13:31 121 20 115/94 99 Room Air 05/07/17 13:17 99 Room Air 05/07/17 13:14 108 05/07/17 13:01 36.4 151 20 118/79 99 Room Air General Appearance: WD/WN, no apparent distress Head: normocephalic, atraumatic Eyes: normal inspection, sclerae normal ENT: normal ENT inspection, pharynx normal Neck: supple, no JVD, + pertinent finding ([facility] TDC with clean exit site) Respiratory/Chest: lungs clear, no respiratory distress, no accessory muscle use, + rales Cardiovascular: no gallop, no murmur, + tachycardia Abdomen/GI: non tender, soft Back: no CVA tenderness Extremities/Musculoskelatal: normal inspection, + pedal edema Neurologic/Psych: alert, oriented x 3 Skin: normal color Laboratory Results Last 24 Hours Test 05/07/17 13:23 05/07/17 13:28 05/07/17 15:38 White Blood Count 8.92 K/uL Red Blood Count 3.64 M/uL Hemoglobin 10.3 g/dL Hematocrit 32.8 % Mean Corpuscular Volume 90.1 fL Mean Corpuscular Hemoglobin 28.3 pg Mean Corpuscular Hemoglobin Concent 31.4 g/dl Platelet Count 104 K/uL Mean Platelet Volume 11.2 fL Neutrophils (%) (Auto) 81.4 % Lymphocytes (%) (Auto) 7.4 % Monocytes (%) (Auto) 6.7 % Eosinophils (%) (Auto) 3.0 % Basophils (%) (Auto) 0.2 % Neutrophils # (Auto) 7.25 K/uL Lymphocytes # (Auto) 0.66 K/uL Monocytes # (Auto) 0.60 K/uL Eosinophils # (Auto) 0.27 K/uL Basophils # (Auto) 0.02 K/uL RDW Standard Deviation 48.7 fL RDW Coefficient of Variation 15.0 % Immature Granulocyte % (Auto) 1.3 % Immature Granulocyte # (Auto) 0.12 K/uL Prothrombin Time 12.4 SECONDS Prothromb Time International Ratio 1.2 Activated Partial Thromboplast Time 28.9 SECONDS Partial Thromboplastin Ratio 1.1 Sodium Level 135 mmol/L Potassium Level 4.1 mmol/L Chloride Level 99 mmol/L Carbon Dioxide Level 26 mmol/L Anion Gap 10.0 mmol/L 20.0 mmol/L Blood Urea Nitrogen 51 mg/dl Creatinine 5.40 mg/dl Est Creatinine Clear Calc Drug Dose 17.4 ml/min Estimated GFR () 12.2 Estimated GFR (Non- 10.5 BUN/Creatinine Ratio 9.4 Random Glucose 385 mg/dl Calcium Level 8.9 mg/dl Total Bilirubin 0.6 mg/dl Direct Bilirubin 0.2 mg/dl Aspartate Amino Transf (AST/SGOT) 42 U/L Alanine Aminotransferase (ALT/SGPT) 58 U/L Alkaline Phosphatase 201 U/L Total Creatine Kinase 36 U/L Creatine Kinase MB 1.3 ng/ml Creatine Kinase MB Ratio 3.6 Troponin I 0.064 ng/ml Pro-B-Type Natriuretic Peptide 05632 pg/ml Total Protein 7.1 gm/dl Albumin 3.0 gm/dl Lipase 203 U/L Beta-Hydroxybutyric Acid 0.73 mg/dL Digoxin Level 0.8 ng/ml Bedside Hemoglobin 11.6 g/dl Bedside Hematocrit 34 % Bedside Sodium 135 mEq/L Bedside Potassium 4.1 mEq/L Bedside Chloride 96 mEq/L Bedside Total CO2 24 mEq/l Bedside Blood Urea Nitrogen 45 mg/dl Bedside Creatinine 5.4 mg/dl Bedside Glucose (other) 388 mg/dl Bedside Ionized Calcium (Corey) 1.14 mmol/l Bedside Glucose 388 mg/dl Impression (1) ESRD (end stage renal disease) on dialysis (2) Chronic systolic CHF (congestive heart failure) (3) Atrial flutter Rubio is a 62-year-old male with ESRD, CAD with an ischemic cardiomyopathy and chronic systolic CHF. He has diabetes mellitus and hypertension. He was admitted to [facility] from April 29 - with advanced CKD, new SVT and acute systolic CHF. Unfortunately, there is confusion regarding whether he has maintained the prescribed medical therapy since discharge. The patient reports some confusion. He presented to HD today with rapid heart rate and subsequently evaluated in the ED. Last hemodialysis treatment was last week on . Electrolytes are appropriate. Volume status acceptable. Heart rate improving with Lopressor for rate control. Mr. Montgomery is notably hyperglycemic. He is being admitted for management of her atrial flutter and hyperglycemia and hemodialysis will be appropriately coordinated. There is no emergent need for dialysis tonight. The patient will receive inpatient HD tomorrow. Recommendations -- Plan HD tomorrow -- Medications currently appropriate for renal function -- He should be maintained on a renal diet -- I discussed the plan of care with Dr. Sin
--- NOTE | 2017-05-07 18:31 | History and Physical ---
History & Physical Date & Time of Service: May 07, 2017 at 16:28 Chief Complaint: High Heart Rate, Sent By Dialysis Primary Care Physician: Tomás Rodriguez M.D. History of Present Illness Source: patient 62yo male with chronic systolic CHF and recently diagnosed ESRD who presents today from the hemodialysis suite in [place] due to rapid a. flutter. His heart rate, by report, was in the 130-170 range while at HD at time of check -in and he was promptly sent over via to [facility] for evaluation. He did NOT receive hemodialysis today. Upon arrival here his heart rate was in the 150s. He was given IV lopressor with improved rate control. Patient openly admits to not taking his medications as directed. In fact, he is unsure what meds, if any, he took this am. He believes he took his lantus insulin in the last 24 hours. In addition, he reports he had a home health nurse recently at his home but asked them to leave after they had a verbal altercation. Past Medical/Surgical History PMH: 1. a. fib/flutter 2. recent development of ESRD in the setting of previous CKD stage 4 3. diabetic polyneuropathy 4. T2DM 5. chronic systolic CHF - EF 20-25% 6. CAD s/p CABG x 5 at [facility] - 01/18/14; CABG was preceded by NSTEMI 7. PAD 8. prior tobacco dependence 9. carotid stenosis PSH: 1. CABG - 5-vessel - [facility] - 2013 2. hernia repair (inguinal) 3. appendectomy 4. CEA for carotid stenosis Family History mother - oral cancer father - hepatitis C from blood transfusion? 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 ) Multi-Drug Resistant Organisms History of MDRO: Yes Type of MDRO: MRSA Allergies Coded Allergies: No Known Allergies (Unverified , 04/29/17) Home Medications Scheduled Ciprofloxacin Hcl (Cipro), 500 MG PO HS Digoxin (Digoxin), 0.125 MG PO DAILY Furosemide (Lasix), 40 MG PO BID Gabapentin (Neurontin), 100 MG PO BID Glyburide-Metformin (Glucovance 5/500 Mg), 2 TAB PO BID Insulin Glargine (Lantus Solostar), 10 UNITS SC DAILY Warfarin Sod (Jantoven), 5 MG PO DAILY Review of Systems Constitutional: No fever, No chills ENT: No nasal symptoms, No sore throat Respiratory: No cough, No shortness of breath, No dyspnea on exertion Cardiovascular: No chest pain, No orthopnea, No PND, No edema, No palpitations Abdomen: No pain, No nausea, No vomiting, No diarrhea, No constipation Musculoskeletal: + swelling (legs) Genitourinary - Male: No dysuria Neurologic: + numbness/tingling Psychiatric: No depression symptoms Endocrine: No fatigue Hematologic / Lymphatic: No abnormal bleeding/bruising Integumentary: + rash (legs - shins b/l ) Physical Exam Vital Signs Date Time Temp Pulse Resp B/P (MAP) Pulse Ox O2 Delivery O2 Flow Rate FiO2 05/07/17 15:42 106 118/48 95 Room Air 05/07/17 14:11 76 108/74 95 05/07/17 13:40 79 135/78 98 05/07/17 13:33 131 115/94 05/07/17 13:31 121 20 115/94 99 Room Air 05/07/17 13:17 99 Room Air 05/07/17 13:14 108 05/07/17 13:01 36.4 151 20 118/79 99 Room Air General Appearance: no apparent distress Head: normocephalic, atraumatic Eyes: PERRL ENT: pharynx normal Neck: no adenopathy, thyroid normal, + JVD Respiratory/Chest: no respiratory distress, no accessory muscle use, + rales ( scant bases only) Cardiovascular: no murmur, + tachycardia, + pertinent finding (irregular) Abdomen/GI: normal bowel sounds, non tender, soft, no organomegaly Back: normal inspection Extremities/Musculoskelatal: + pedal edema (2+ b/l ), + pertinent finding ( pulses 1+ b/l at best in feet) Neurologic/Psych: no motor/sensory deficits, alert, oriented x 3 Skin: + pertinent finding (very mild, superficial ulcers of b/l shins in a background of what looks like chronic stasis changes ) permcath, right upper chest, clean Diagnostics Laboratory Results Results Past 24 Hours Test 05/07/17 13:23 05/07/17 13:28 05/07/17 15:38 Range/Units White Blood Count 8.92 4.8-10.8 K/uL Red Blood Count 3.64 4.7-6.1 M/uL Hemoglobin 10.3 14.0-18.0 g/dL Hematocrit 32.8 42-52 % Mean Corpuscular Volume 90.1 80-100 fL Mean Corpuscular Hemoglobin 28.3 25-34 pg Mean Corpuscular Hemoglobin Concent 31.4 32-36 g/dl Platelet Count 104 130-400 K/uL Mean Platelet Volume 11.2 7.4-10.4 fL Neutrophils (%) (Auto) 81.4 % Lymphocytes (%) (Auto) 7.4 % Monocytes (%) (Auto) 6.7 % Eosinophils (%) (Auto) 3.0 % Basophils (%) (Auto) 0.2 % Neutrophils # (Auto) 7.25 1.4-6.5 K/uL Lymphocytes # (Auto) 0.66 1.2-3.4 K/uL Monocytes # (Auto) 0.60 0.11-0.59 K/uL Eosinophils # (Auto) 0.27 0-0.5 K/uL Basophils # (Auto) 0.02 0-0.2 K/uL RDW Standard Deviation 48.7 36.4-46.3 fL RDW Coefficient of Variation 15.0 11.5-14.5 % Immature Granulocyte % (Auto) 1.3 % Immature Granulocyte # (Auto) 0.12 0.00-0.02 K/uL Prothrombin Time 12.4 9.0-12.0 SECONDS Prothromb Time International Ratio 1.2 0.9-1.1 Activated Partial Thromboplast Time 28.9 21.0-31.0 SECONDS Partial Thromboplastin Ratio 1.1 Sodium Level 135 136-145 mmol/L Potassium Level 4.1 3.5-5.1 mmol/L Chloride Level 99 98-107 mmol/L Carbon Dioxide Level 26 21-32 mmol/L Anion Gap 10.0 20.0 16-25 mmol/L Blood Urea Nitrogen 51 7-18 mg/dl Creatinine 5.40 0.60-1.40 mg/dl Est Creatinine Clear Calc Drug Dose 17.4 ml/min Estimated GFR () 12.2 Estimated GFR (Non- 10.5 BUN/Creatinine Ratio 9.4 10-20 Random Glucose 385 70-99 mg/dl Calcium Level 8.9 8.5-10.1 mg/dl Total Bilirubin 0.6 0.2-1 mg/dl Direct Bilirubin 0.2 0-0.2 mg/dl Aspartate Amino Transf (AST/SGOT) 42 15-37 U/L Alanine Aminotransferase (ALT/SGPT) 58 12-78 U/L Alkaline Phosphatase 201 45-117 U/L Total Creatine Kinase 36 39-308 U/L Creatine Kinase MB 1.3 0.5-3.6 ng/ml Creatine Kinase MB Ratio 3.6 0-3.0 Troponin I 0.064 0-0.045 ng/ml Pro-B-Type Natriuretic Peptide 91078 0-900 pg/ml Total Protein 7.1 6.4-8.2 gm/dl Albumin 3.0 3.4-5.0 gm/dl Lipase 203 73-393 U/L Beta-Hydroxybutyric Acid 0.73 0.2-2.81 mg/dL Digoxin Level 0.8 0.8-2.0 ng/ml Bedside Hemoglobin 11.6 14.0-18.0 g/dl Bedside Hematocrit 34 42-52 % Bedside Sodium 135 135-144 mEq/L Bedside Potassium 4.1 3.3-5.0 mEq/L Bedside Chloride 96 101-112 mEq/L Bedside Total CO2 24 24-31 mEq/l Bedside Blood Urea Nitrogen 45 7-18 mg/dl Bedside Creatinine 5.4 0.6-1.3 mg/dl Bedside Glucose (other) 388 70-99 mg/dl Bedside Ionized Calcium (Corey) 1.14 1.12-1.32 mmol/l Bedside Glucose 388 70-99 mg/dl Diagnostic Radiology cxr: IMPRESSION: 1. Cardiomegaly with no acute cardiopulmonary abnormality. 2. A 1.9 cm nodular density projects over the right lower lung. This may represent superimposition of shadows. Follow-up with a dedicated PA and lateral examination is recommended. 3. A right internal jugular central venous catheter is new from previous. EKG ekg - a. flutter with RVR, variable block, no ST changes Impression Assessment and Plan 62yo male with CAD s/p CABG, chronic systolic CHF, recently diagnosed a. flutter , and recent development of ESRD now with HD initiated presenting with a. flutter with RVR. 1. a. flutter with RVR - I suspect his poor rate control is due to noncompliance with medications. He has a long-standing history of such. He was rate-controlled when he left the hospital recently. Fortunately he responds rapidly to beta blockade. I highly doubt he has been taking his coumadin either as his INR on day of discharge recently was 1.2 and today it is the same. I am not sure there will be any good answer for maintaining compliance. Will defer chemical or electrical cardioversion to cardiology for long-term control. Continue digoxin as previous. 2. ESRD now on HD - nephrology consulted, to have HD tomorrow. 3. CAD - he has had no ischemic symptoms prior to admission. His minimal troponin elevation is either due to #2 or from #1. No further work-up. Cont BB, aspirin. I am unsure why he is not on a statin - myopathic symptoms/ side effects in the past?? other? 4. T2DM, uncontrolled - I question if lantus alone will control this gentleman outside of the hospital. He would likely need multiple shots/day for optimal control but doubt he could maintain such a regimen. 70/30 is a poor option due to his ESRD and likely inconsistent eating habits. Continue lantus for now with novolog carb ratio/correction. 5. PAD - continue aspirin although 81mg daily is probably acceptable relative to the 325mg he was taking. Continue beta brenda. 6. peripheral neuropathy - continue gabapentin BID. 7. chronic systolic CHF - compensated; continue BB, lasix, hemodialysis to maintain euvolemia. 8. DVT proph - heparin BID until coumadin is therapeutic. 9. pulmonary nodule, question of - will need, at minimum, repeat cxr vs chest CT, to r/o true nodule vs artifact. 10. mild thrombocytopenia - this is relatively new in the last 1-2 weeks. Repeat cbc in am and follow. social work consult to assist with discharge needs as he is at high risk of recurrent admissions for noncompliance, etc. VTE Prophylaxis VTE Risk Assessment Done? Y/N: Yes Risk Level: High Given or contraindicated: Unfractionated heparin SQ Social Service Consult Receiving Home Health Note total time about 60 minutes Additional Copies To Tomás Rodriguez M.D.; Dona Max MD; Brian Toledo D.O.
[2017-05-07] MEDS: GABAPENTIN 100 MG CAP PO SCH (18:36)
[2017-05-07] MEDS: FUROSEMIDE 40 MG TAB PO SCH (18:37)
[2017-05-07 19:06] VITALS: BP 99/65; PULSE 90; TEMP 36.7; O2SAT 97
[2017-05-07 20:30] VITALS: O2SAT 97
[2017-05-07] MEDS: HEPARIN SOD 5000 UNIT/0.5 ML CARP SQ SCH (20:42)
[2017-05-07] MEDS: INSULIN GLARGINE SOLOSTAR 100 UNITS/ML 3 ML PEN SC SCH (20:43)
[2017-05-07] MEDS: CARVEDILOL 6.25 MG TAB PO SCH (20:44)
[2017-05-07] MEDS: INSULIN ASPART 100 UNITS/ML 3 ML PEN SC SCH (20:44)
[2017-05-08] VITALS (27 sets, daily range): BP systolic 94–174; BP diastolic 55–115; PULSE 51–149; TEMP 36.4–37.3; O2SAT 96–98; Ht 180.3 cm; Wt 101.0 kg
[2017-05-08 06:31] LABS: HEMATOCRIT 30.9 % (42-52); MEAN CELL VOLUME 87.8 fL (80-100); MEAN CORPUSCULAR HEMOGLOBIN 28.7 pg (25-34); MEAN CORPUSCULAR HGB CONC 32.7 g/dl (32-36); MEAN PLATELET VOLUME 11.6 fL (7.4-10.4); PLATELET COUNT 108 K/uL (130-400); RED BLOOD COUNT 3.52 M/uL (4.7-6.1); WHITE BLOOD COUNT 8.14 K/uL (4.8-10.8)
[2017-05-08 06:41] LABS: INR 1.1 (0.9-1.1)
[2017-05-08 07:21] LABS: BUN/CREATININE RATIO 10.1 (10-20); CALCIUM 8.8 mg/dl (8.5-10.1); CREATININE 5.4 mg/dl (0.60-1.40); POTASSIUM 4.3 mmol/L (3.5-5.1)
[2017-05-08] MEDS: FUROSEMIDE 40 MG TAB PO SCH ×2 (07:40→17:23)
[2017-05-08] MEDS: GABAPENTIN 100 MG CAP PO SCH ×2 (07:40→21:03)
[2017-05-08] MEDS: ASPIRIN 81 MG ECTAB PO SCH (07:40)
[2017-05-08] MEDS: CARVEDILOL 6.25 MG TAB PO SCH ×2 (07:41→21:03)
[2017-05-08] MEDS: INSULIN ASPART 100 UNITS/ML 3 ML PEN SC SCH ×4 (07:44→21:00)
[2017-05-08] MEDS: HEPARIN SOD 5000 UNIT/0.5 ML CARP SQ SCH ×3 (07:45→21:06)
--- NOTE | 2017-05-08 08:45 | Nephrology Progress Note ---
Nephrology Progress Note Date of Service May 08, 2017. Chief Complaint ESRD Subjective No acute events overnight. Rubio is very upset this morning. He reports difficulty sleeping. He is frustrated that hemodialysis is scheduled for the afternoon. He was hopeful to be discharged home this afternoon. He states that he feels well. He denies chest pain, palpitations or shortness of breath. Appetite is good. He notes that his legs feel heavy from edema which makes walking more difficult. Review of Systems A complete review of systems was performed. Pertinent positives are noted above. All other systems are negative. Vital Signs Last 8 Hrs Date Time Temp Pulse Resp B/P (MAP) Pulse Ox O2 Delivery O2 Flow Rate FiO2 05/08/17 07:41 36.7 97 18 129/72 (91) 97 Room Air 05/08/17 04:05 Room Air 05/08/17 04:00 36.7 105 19 117/70 (86) 96 Room Air Last Recorded Weight Weight (Kilograms): 101.500 Physical Exam General Appearance: WD/WN, no apparent distress Head: normocephalic, atraumatic Eyes: normal inspection, sclerae normal ENT: normal ENT inspection, pharynx normal Neck: supple, + JVD, + pertinent finding (R RDC) Respiratory/Chest: lungs clear, no respiratory distress, + rales Cardiovascular: regular rate, rhythm, no gallop, no murmur Abdomen/GI: non tender, soft Extremities/Musculoskelatal: normal inspection, + pedal edema Neurologic/Psych: alert, normal mood/affect Family History No pertinent family history Social History Alcohol Use: none Drug Use: none Marital Status: (lives with and son) Housing Status: lives with family 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 ) Laboratory Results Past 24 Hours 05/07/17 13:23 Red Blood Count 3.64, Mean Corpuscular Volume 90.1, Mean Corpuscular Hemoglobin 28.3, Mean Corpuscular Hemoglobin Concent 31.4, Mean Platelet Volume 11.2, Neutrophils (%) (Auto) 81.4, Lymphocytes (%) (Auto) 7.4, Monocytes (%) (Auto) 6.7, Eosinophils (%) (Auto) 3.0, Basophils (%) (Auto) 0.2, Neutrophils # (Auto) 7.25, Lymphocytes # (Auto) 0.66, Monocytes # (Auto) 0.60, Eosinophils # (Auto) 0.27, Basophils # (Auto) 0.02 05/08/17 06:18 05/07/17 13:23 05/08/17 06:18 Test 05/07/17 13:23 05/07/17 13:28 05/07/17 15:38 05/07/17 17:28 White Blood Count 8.92 K/uL (4.8-10.8) Red Blood Count 3.64 M/uL (4.7-6.1) Hemoglobin 10.3 g/dL (14.0-18.0) Hematocrit 32.8 % (42-52) Mean Corpuscular Volume 90.1 fL (80-100) Mean Corpuscular Hemoglobin 28.3 pg (25-34) Mean Corpuscular Hemoglobin Concent 31.4 g/dl (32-36) Platelet Count 104 K/uL (130-400) Mean Platelet Volume 11.2 fL (7.4-10.4) Neutrophils (%) (Auto) 81.4 % Lymphocytes (%) (Auto) 7.4 % Monocytes (%) (Auto) 6.7 % Eosinophils (%) (Auto) 3.0 % Basophils (%) (Auto) 0.2 % Neutrophils # (Auto) 7.25 K/uL (1.4-6.5) Lymphocytes # (Auto) 0.66 K/uL (1.2-3.4) Monocytes # (Auto) 0.60 K/uL (0.11-0.59) Eosinophils # (Auto) 0.27 K/uL (0-0.5) Basophils # (Auto) 0.02 K/uL (0-0.2) RDW Standard Deviation 48.7 fL (36.4-46.3) RDW Coefficient of Variation 15.0 % (11.5-14.5) Immature Granulocyte % (Auto) 1.3 % Immature Granulocyte # (Auto) 0.12 K/uL (0.00-0.02) Prothrombin Time 12.4 SECONDS (9.0-12.0) Prothromb Time International Ratio 1.2 (0.9-1.1) Activated Partial Thromboplast Time 28.9 SECONDS (21.0-31.0) Partial Thromboplastin Ratio 1.1 Anion Gap 10.0 mmol/L (3-11) 20.0 mmol/L (16-25) Est Creatinine Clear Calc Drug Dose 17.4 ml/min Estimated GFR () 12.2 Estimated GFR (Non- 10.5 BUN/Creatinine Ratio 9.4 (10-20) Calcium Level 8.9 mg/dl (8.5-10.1) Total Bilirubin 0.6 mg/dl (0.2-1) Direct Bilirubin 0.2 mg/dl (0-0.2) Aspartate Amino Transf (AST/SGOT) 42 U/L (15-37) Alanine Aminotransferase (ALT/SGPT) 58 U/L (12-78) Alkaline Phosphatase 201 U/L (45-117) Total Creatine Kinase 36 U/L (39-308) Creatine Kinase MB 1.3 ng/ml (0.5-3.6) Creatine Kinase MB Ratio 3.6 (0-3.0) Troponin I 0.064 ng/ml (0-0.045) Pro-B-Type Natriuretic Peptide 84084 pg/ml (0-900) Total Protein 7.1 gm/dl (6.4-8.2) Albumin 3.0 gm/dl (3.4-5.0) Lipase 203 U/L (73-393) Beta-Hydroxybutyric Acid 0.73 mg/dL (0.2-2.81) Digoxin Level 0.8 ng/ml (0.8-2.0) Bedside Hemoglobin 11.6 g/dl (14.0-18.0) Bedside Hematocrit 34 % (42-52) Bedside Sodium 135 mEq/L (135-144) Bedside Potassium 4.1 mEq/L (3.3-5.0) Bedside Chloride 96 mEq/L (101-112) Bedside Total CO2 24 mEq/l (24-31) Bedside Blood Urea Nitrogen 45 mg/dl (7-18) Bedside Creatinine 5.4 mg/dl (0.6-1.3) Bedside Glucose (other) 388 mg/dl (70-99) Bedside Ionized Calcium (Corey) 1.14 mmol/l (1.12-1.32) Bedside Glucose 388 mg/dl (70-99) 301 mg/dl (70-99) Test 05/07/17 20:01 05/08/17 06:18 05/08/17 06:34 05/08/17 08:04 Bedside Glucose 245 mg/dl (70-99) 162 mg/dl (70-99) Red Blood Count 3.52 M/uL (4.7-6.1) Mean Corpuscular Volume 87.8 fL (80-100) Mean Corpuscular Hemoglobin 28.7 pg (25-34) Mean Corpuscular Hemoglobin Concent 32.7 g/dl (32-36) RDW Standard Deviation 47.7 fL (36.4-46.3) RDW Coefficient of Variation 14.8 % (11.5-14.5) Mean Platelet Volume 11.6 fL (7.4-10.4) Prothrombin Time 12.0 SECONDS (9.0-12.0) Prothromb Time International Ratio 1.1 (0.9-1.1) Anion Gap 9.0 mmol/L (3-11) Est Creatinine Clear Calc Drug Dose 17.4 ml/min Estimated GFR () 12.2 Estimated GFR (Non- 10.5 BUN/Creatinine Ratio 10.1 (10-20) Calcium Level 8.8 mg/dl (8.5-10.1) Creatine Kinase MB Ratio (0-3.0) Test 05/08/17 08:28 Allergies Coded Allergies: No Known Allergies (Unverified , 04/29/17) Medications Current Inpatient Medications Medications (Trade) Dose Ordered Sig/Mikie Route Start Time Stop Time Status Last Admin Dose Admin Acetaminophen (Tylenol Tab) 650 mg Q4H PRN PO 05/07/17 16:45 06/06/17 16:44 Ondansetron HCl (Zofran Inj) 4 mg Q6H PRN IV 05/07/17 16:45 06/06/17 16:44 Nitroglycerin (Nitrostat Tab) 0.4 mg UD PRN SL 05/07/17 16:45 06/06/17 16:44 Carvedilol (Coreg Tab) 6.25 mg BID PO 05/07/17 21:00 06/06/17 20:59 05/08/17 07:41 6.25 MG Insulin Glargine (Lantus Solostar Pen) 10 units HS SC 05/07/17 21:00 06/06/17 20:59 05/07/17 20:43 10 UNITS Digoxin (Lanoxin Tab) 0.125 mg DAILY@1600 PO 05/08/17 16:00 06/07/17 15:59 Furosemide (Lasix Tab) 40 mg BID17 PO 05/07/17 17:00 06/06/17 16:59 05/08/17 07:40 40 MG Gabapentin (Neurontin Cap) 100 mg BID PO 05/07/17 21:00 06/06/17 20:59 05/08/17 07:40 100 MG Warfarin Sodium (Coumadin Tab) 5 mg DAILY@1600 PO 05/08/17 16:00 06/07/17 15:59 Insulin Aspart (novoLOG ASPART) SLIDING SCALE G... ACHS SC 05/07/17 21:00 06/06/17 20:59 05/08/17 07:44 5 UNITS Glucose (Glucose 40% Gel) 15-30 GRAMS 15 GRAMS... UD PRN PO 05/07/17 17:00 06/06/17 16:59 Glucose (Glucose Chew Tab) 4-8 Tablets 4 Tabl... UD PRN PO 05/07/17 17:00 06/06/17 16:59 Dextrose (Dextrose 50% 50ML Syringe) 25-50ML OF 50% DW IV FOR... UD PRN IV 05/07/17 17:00 06/06/17 16:59 Glucagon (Glucagon Inj) 1 mg UD PRN SQ 05/07/17 17:00 06/06/17 16:59 Aspirin (Ecotrin Tab) 81 mg QAM PO 05/08/17 09:00 06/07/17 08:59 05/08/17 07:40 81 MG Heparin Sodium (Porcine) (Heparin Sq 5000 Unit/0.5ml) 5,000 unit Q8 SQ 05/08/17 14:00 06/06/17 20:59 Impression (1) ESRD (end stage renal disease) on dialysis (2) Chronic systolic CHF (congestive heart failure) (3) Atrial flutter Rubio is a 62-year-old male with ESRD, CAD with an ischemic cardiomyopathy and chronic systolic CHF. He has diabetes mellitus and hypertension. He was admitted to [facility] from April 29 - with advanced CKD, new SVT and acute systolic CHF. He started hemodialysis during his admission. He presented to the ED yesterday with rapid heart rate. Last hemodialysis treatment was last week on Saturday. He is being admitted for management of atrial flutter and hyperglycemia and ESRD with volume overload. HD is planned for this afternoon. Heart rate 120 this morning but patient asymptomatic. He remains in atrial flutter. I explained the importance of controlling his heart rate during his hospitalization and how this is important to his ability to tolerate HD. Recommendations -- Plan HD today -- Orders have been entered into the EMR and coordinated with the appropriate staff -- Start with a UF goal of 3 kg -- Medications currently appropriate for renal function -- Continue furosemide to encourage UOP -- He should be maintained on a renal diet -- I discussed the plan of care with Dr. Sin
[2017-05-08] MEDS ORDERED: NURSING VERBAL MED ORDER ONE ×2 (15:30→15:45)
[2017-05-08] MEDS ORDERED: METOPROLOL TARTRATE 1 MG/ML VIAL IV ONE (15:40)
[2017-05-08] MEDS ORDERED: ALPRAZOLAM 0.5 MG TAB ONE (15:48)
[2017-05-08] MEDS ORDERED: DIGOXIN 0.125 MG TAB PO SCH (16:00)
[2017-05-08] MEDS: WARFARIN SOD 5 MG TAB PO SCH (17:22)
[2017-05-08] MEDS ORDERED: TEMAZEPAM 7.5 MG CAP PO PRN (19:00)
--- NOTE | 2017-05-08 19:09 | Progress Note ---
Subjective Date of Service: May 08, 2017. Subjective Pt evaluation today including: conversation w/ patient, conversation w/ family , physical exam, chart review, lab review, review of studies, conversation w/ corporate consultant, review of inpatient medication list Sitting in bedside, reported he may have missed medications which caused this admission Report feeling anxiety, and want to go home Patient was doing bedside HD when I seeing him HR around 110, still A. fib with RVR, nurse reported heart rate sometimes up to 120 to 130 Problem List Medical Problems: (1) Atrial fibrillation with rapid ventricular response Status: Acute (2) Atrial fibrillation with RVR Status: Acute (3) Dehydration Status: Acute Review of Systems Constitutional: No fever, No chills, No sweats, No weight loss, No weakness, No fatigue, No problem reported Eyes: No worsening of vision, No eye pain, No redness, No discharge, No diplopia ENT: No hearing loss, No unusual epistaxis, No nasal symptoms, No sore throat, No tinnitus, No dental problems, No trouble swallowing Respiratory: No cough, No sputum, No wheezing, No shortness of breath, No dyspnea on exertion, No dyspnea at rest, No hemoptysis Cardiac: No chest pain, No orthopnea, No PND, No edema, No claudication, No palpitations Abdomen: No pain, No nausea, No vomiting, No diarrhea, No constipation Musculoskeletal: No joint pain, No muscle pain, No swelling, No calf pain Male : No dysuria, No urinary frequency, No incontinence, No nocturia more than once/night, No slowing stream, No hematuria Neurologic: No memory loss, No paralysis, No weakness, No numbness/tingling, No vertigo, No balance problems Psychiatric: No depression symptoms, No anhedonism, No anxiety, No insomnia, No substance abuse Heme: No abnormal bleeding/bruising, No clotting problems, No swollen lymph nodes, No night sweats Endo: No fatigue, No excessive thirst, No excessive urination Skin: No rash, No itch, No new/changing skin lesions, No color change, No bleeding Objective Vital Signs Date Time Temp Pulse Resp B/P (MAP) Pulse Ox O2 Delivery O2 Flow Rate FiO2 05/08/17 17:23 124 05/08/17 16:11 36.5 51 101/64 (76) 05/08/17 16:03 36.6 146 18 142/96 (111) 97 Room Air 05/08/17 16:00 55 94/59 05/08/17 16:00 98 Room Air 05/08/17 15:45 149 167/115 05/08/17 15:36 145 152/96 05/08/17 15:30 136 159/106 05/08/17 15:15 145 152/96 05/08/17 15:00 95 174/105 05/08/17 14:45 125 134/110 05/08/17 14:30 131 154/101 05/08/17 14:15 121 132/74 05/08/17 14:00 101 124/67 05/08/17 13:45 81 124/70 05/08/17 13:30 85 115/66 05/08/17 13:15 89 111/75 05/08/17 13:00 87 127/66 05/08/17 12:45 100 121/71 05/08/17 12:30 115 118/67 05/08/17 12:15 108 109/61 05/08/17 12:00 111 116/67 05/08/17 12:00 Room Air 05/08/17 11:45 36.4 59 115/71 (86) 05/08/17 11:37 36.6 114 22 133/55 (81) 97 Room Air 05/08/17 08:00 Room Air 05/08/17 07:41 36.7 97 18 129/72 (91) 97 Room Air 05/08/17 04:05 Room Air 05/08/17 04:00 36.7 105 19 117/70 (86) 96 Room Air 05/08/17 00:10 97 Room Air 05/08/17 00:00 36.8 103 20 100/59 (73) 97 Room Air 05/07/17 20:30 97 Room Air 05/07/17 19:06 36.7 90 24 99/65 (76) 97 Room Air Physical Exam General Appearance: WD/WN, no apparent distress, + pertinent finding (look much older than his age) Eyes: normal inspection, PERRL, EOMI, sclerae normal ENT: normal ENT inspection, hearing grossly normal, pharynx normal Neck: supple, no adenopathy, thyroid normal, no JVD, no carotid bruits, trachea midline Respiratory/Chest: chest non-tender, normal breath sounds, no respiratory distress, no accessory muscle use, + decreased breath sounds Cardiovascular: regular rate, rhythm, no gallop, no JVD, no murmur Abdomen: normal bowel sounds, non tender, soft, no organomegaly, no pulsatile mass Extremities: normal range of motion, non-tender, normal inspection, no pedal edema, no calf tenderness, normal capillary refill, pelvis stable, + pertinent finding (bilateral lower extremity skin is dry, mild red, patient reported this is not new) Neurologic/Psychiatric: reimbursement consultant II-XII nml as tested, no motor/sensory deficits, alert, normal mood/affect, oriented x 3 Skin: normal color, warm/dry, + pertinent finding (has irregular ulceration, no obvious drainage,) Lymphatic: no adenopathy Laboratory Results Last 24 Hours Test 05/07/17 20:01 05/08/17 06:18 05/08/17 06:34 05/08/17 08:04 Bedside Glucose 245 mg/dl 162 mg/dl White Blood Count 8.14 K/uL Red Blood Count 3.52 M/uL Hemoglobin 10.1 g/dL Hematocrit 30.9 % Mean Corpuscular Volume 87.8 fL Mean Corpuscular Hemoglobin 28.7 pg Mean Corpuscular Hemoglobin Concent 32.7 g/dl RDW Standard Deviation 47.7 fL RDW Coefficient of Variation 14.8 % Platelet Count 108 K/uL Mean Platelet Volume 11.6 fL Prothrombin Time 12.0 SECONDS Prothromb Time International Ratio 1.1 Sodium Level 136 mmol/L Potassium Level 4.3 mmol/L Chloride Level 103 mmol/L Carbon Dioxide Level 24 mmol/L Anion Gap 9.0 mmol/L Blood Urea Nitrogen 55 mg/dl Creatinine 5.40 mg/dl Est Creatinine Clear Calc Drug Dose 17.4 ml/min Estimated GFR () 12.2 Estimated GFR (Non- 10.5 BUN/Creatinine Ratio 10.1 Random Glucose 165 mg/dl Calcium Level 8.8 mg/dl Creatine Kinase MB Ratio Test 05/08/17 08:28 05/08/17 11:34 05/08/17 16:15 Creatine Kinase MB 1.1 ng/ml Troponin I 0.050 ng/ml Bedside Glucose 229 mg/dl 150 mg/dl Assessment and Plan 62yo male admitted on 05/07/2017 with a. flutter with RVR. Past medical history CAD s/p CABG, chronic systolic CHF, recently diagnosed a. flutter, and recent development of ESRD a. flutter with RVR Likely is due to noncompliance with medications. highly doubt he has been taking his coumadin either as his INR on day of discharge recently was 1.2 and an was no same upon admission to maintaining compliance is in ECF Continue digoxin as previous, and beta brenda as needed chemical or electrical cardioversion to cardiology would be a good idea Request cardiology to see ESRD now on HD - nephrology consulted, renal input appreciated CAD: no ischemic symptoms prior to admission. minimal troponin elevation is either due to , possible from troponin leakage, has trends down Cont BB, aspirin. unsure why he is not on a statin, Checking lipid profile T2DM, uncontrolled Possible noncompliance to, HbA1c 9.1 at 05/01/2017 70/30 is a poor option due to his ESRD and likely inconsistent eating habits. Continue lantus for now with novolog carb ratio/correction. PAD - continue aspirin although 81mg daily is probably acceptable relative to the 325mg he was taking. Continue beta brenda. peripheral neuropathy - continue gabapentin BID. chronic systolic CHF - compensated; continue BB, lasix, hemodialysis to maintain euvolemia. pulmonary nodule, question of - will need, at minimum, repeat cxr vs chest CT, to r/o true nodule vs artifact. mild thrombocytopenia - this is relatively new in the last 1-2 weeks. Repeat cbc it is stable Patient several times want to leave from hospital for home, with present of nurse in 2 occasions, discussed , I told patient that against medical advice may cause permanent organ damage or even , patient is awake, alert and orientated x3, I believe patient is competent to make decision by self. patient fully understands and wants to take all risks by self. I also told patient that your medical condition is not ready for your doctor to discharge you to home. For now he stay DVT proph - heparin BID until coumadin is therapeutic. social work consult to assist with discharge needs as he is at high risk of recurrent admissions for noncompliance PT/OT, ernestina, ENMANUEL for Dc plan Continued [facility] stay due to: multiple IV medications needed Discharge planning: home
[2017-05-08 20:19] LABS: CHOLESTEROL/HDL RATIO 3.9
[2017-05-08] MEDS: INSULIN GLARGINE SOLOSTAR 100 UNITS/ML 3 ML PEN SC SCH (21:06)
[2017-05-09 04:05] VITALS: BP 97/63; PULSE 106; TEMP 37; O2SAT 97
[2017-05-09] MEDS: HEPARIN SOD 5000 UNIT/0.5 ML CARP SQ SCH ×3 (06:04→21:04)
[2017-05-09 07:00] LABS: INR 1.1 (0.9-1.1)
[2017-05-09 07:01] LABS: BUN/CREATININE RATIO 8.7 (10-20); CALCIUM 8.9 mg/dl (8.5-10.1); CREATININE 4.3 mg/dl (0.60-1.40); MAGNESIUM 2.1 mg/dl (1.8-2.4); POTASSIUM 4.4 mmol/L (3.5-5.1)
[2017-05-09 07:02] LABS: PHOSPHORUS 3.5 mg/dl (2.5-4.9)
[2017-05-09 08:03] VITALS: BP 118/82; PULSE 116; TEMP 36.8; O2SAT 97
[2017-05-09] MEDS ORDERED: WARFARIN SOD 2 MG TAB PO STA (08:06)
[2017-05-09] MEDS: FUROSEMIDE 40 MG TAB PO SCH ×2 (08:11→16:26)
[2017-05-09] MEDS: ASPIRIN 81 MG ECTAB PO SCH (08:11)
[2017-05-09] MEDS: CARVEDILOL 6.25 MG TAB PO SCH (08:11)
[2017-05-09] MEDS: GABAPENTIN 100 MG CAP PO SCH ×2 (08:11→21:01)
[2017-05-09] MEDS: INSULIN ASPART 100 UNITS/ML 3 ML PEN SC SCH ×4 (08:14→21:03)
[2017-05-09 11:32] VITALS: BP 122/90
[2017-05-09 12:13] VITALS: BP 104/66; PULSE 90; TEMP 36.8; O2SAT 97
--- NOTE | 2017-05-09 12:21 | Nephrology Progress Note ---
Nephrology Progress Note Date of Service May 09, 2017. Chief Complaint ESRD Subjective No acute events overnight. No complaints this morning. No chest pain or palpitations. Ambulating in room. Rubio is very hopeful that he can be discharged home today. He tolerated HD yesterday, UF 3 kg. Denies shortness of breath. No fevers or chills. Review of Systems A complete review of systems was performed. Pertinent positives are noted above. All other systems are negative. Vital Signs Last 8 Hrs Date Time Temp Pulse Resp B/P (MAP) Pulse Ox O2 Delivery O2 Flow Rate FiO2 05/09/17 12:13 36.8 90 18 104/66 (79) 97 Room Air 05/09/17 12:00 Room Air 05/09/17 08:03 36.8 116 20 118/82 (94) 97 Room Air 05/09/17 08:00 Room Air Last Recorded Weight Weight (Kilograms): 98.700 Physical Exam General Appearance: WD/WN, no apparent distress Head: normocephalic, atraumatic Eyes: normal inspection, sclerae normal ENT: normal ENT inspection, pharynx normal Neck: supple, no JVD Respiratory/Chest: lungs clear, no respiratory distress, no accessory muscle use Cardiovascular: no murmur, + tachycardia Abdomen/GI: non tender, soft Extremities/Musculoskelatal: normal inspection, + pedal edema Neurologic/Psych: alert, oriented x 3 Family History No pertinent family history Social History Alcohol Use: none Drug Use: none Marital Status: (lives with and son) Housing Status: lives with family 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 ) Laboratory Results Past 24 Hours 05/09/17 05:58 Test 05/08/17 16:15 05/08/17 19:39 05/08/17 20:28 05/09/17 05:58 Bedside Glucose 150 mg/dl (70-99) 180 mg/dl (70-99) Triglycerides Level 179 mg/dl (0-150) Cholesterol Level 122 mg/dl (0-200) HDL Cholesterol 31 mg/dl LDL Cholesterol, Calculated 55 mg/dl VLDL Cholesterol, Calculated 36 mg/dl Cholesterol/HDL Ratio 3.9 Prothrombin Time 12.0 SECONDS (9.0-12.0) Prothromb Time International Ratio 1.1 (0.9-1.1) Anion Gap 8.0 mmol/L (3-11) Est Creatinine Clear Calc Drug Dose 21.6 ml/min Estimated GFR () 16.1 Estimated GFR (Non- 13.9 BUN/Creatinine Ratio 8.7 (10-20) Calcium Level 8.9 mg/dl (8.5-10.1) Phosphorus Level 3.5 mg/dl (2.5-4.9) Magnesium Level 2.1 mg/dl (1.8-2.4) Albumin 3.1 gm/dl (3.4-5.0) Test 05/09/17 06:21 05/09/17 11:27 Bedside Glucose 205 mg/dl (70-99) 249 mg/dl (70-99) Allergies Coded Allergies: No Known Allergies (Unverified , 04/29/17) Medications Current Inpatient Medications Medications (Trade) Dose Ordered Sig/Mikie Route Start Time Stop Time Status Last Admin Dose Admin Acetaminophen (Tylenol Tab) 650 mg Q4H PRN PO 05/07/17 16:45 06/06/17 16:44 Ondansetron HCl (Zofran Inj) 4 mg Q6H PRN IV 05/07/17 16:45 06/06/17 16:44 Nitroglycerin (Nitrostat Tab) 0.4 mg UD PRN SL 05/07/17 16:45 06/06/17 16:44 Carvedilol (Coreg Tab) 6.25 mg BID PO 05/07/17 21:00 06/06/17 20:59 05/09/17 08:11 6.25 MG Insulin Glargine (Lantus Solostar Pen) 10 units HS SC 05/07/17 21:00 06/06/17 20:59 05/08/17 21:06 10 UNITS Digoxin (Lanoxin Tab) 0.125 mg DAILY@1600 PO 05/08/17 16:00 06/07/17 15:59 05/08/17 17:23 0.125 MG Furosemide (Lasix Tab) 40 mg BID17 PO 05/07/17 17:00 06/06/17 16:59 05/09/17 08:11 40 MG Gabapentin (Neurontin Cap) 100 mg BID PO 05/07/17 21:00 06/06/17 20:59 05/09/17 08:11 100 MG Warfarin Sodium (Coumadin Tab) 5 mg DAILY@1600 PO 05/08/17 16:00 06/07/17 15:59 05/08/17 17:22 5 MG Insulin Aspart (novoLOG ASPART) SLIDING SCALE G... ACHS SC 05/07/17 21:00 06/06/17 20:59 05/09/17 12:13 8 UNITS Glucose (Glucose 40% Gel) 15-30 GRAMS 15 GRAMS... UD PRN PO 05/07/17 17:00 06/06/17 16:59 Glucose (Glucose Chew Tab) 4-8 Tablets 4 Tabl... UD PRN PO 05/07/17 17:00 06/06/17 16:59 Dextrose (Dextrose 50% 50ML Syringe) 25-50ML OF 50% DW IV FOR... UD PRN IV 05/07/17 17:00 06/06/17 16:59 Glucagon (Glucagon Inj) 1 mg UD PRN SQ 05/07/17 17:00 06/06/17 16:59 Aspirin (Ecotrin Tab) 81 mg QAM PO 05/08/17 09:00 06/07/17 08:59 05/09/17 08:11 81 MG Heparin Sodium (Porcine) (Heparin Sq 5000 Unit/0.5ml) 5,000 unit Q8 SQ 05/08/17 14:00 06/06/17 20:59 05/09/17 06:04 5,000 UNIT Temazepam (Restoril Cap) 7.5 mg HS PRN PO 05/08/17 19:00 06/07/17 18:59 Impression (1) ESRD (end stage renal disease) on dialysis (2) Chronic systolic CHF (congestive heart failure) (3) Atrial flutter Rubio is a 62-year-old male with ESRD, CAD with an ischemic cardiomyopathy and chronic systolic CHF. He has diabetes mellitus and hypertension. He was admitted to [facility] from April 29 - with advanced CKD, new SVT and acute systolic CHF. He started hemodialysis during his admission. He presented to the ED two days ago with rapid atrial flutter. Admitted for management of atrial flutter and hyperglycemia and ESRD with volume overload. HD completed yesterday with UF 3 kg. Heart rate continues to fluctuate but patient asymptomatic. He notes no compliance with medications prior to admission. Recommendations -- Plan HD tomorrow as inpatient -- Monitoring today for heart rate control and cardiology consult pending -- Volume status, electrolytes and blood pressure are currently appropriate -- Medications currently appropriate for renal function -- Continue furosemide to encourage UOP -- Renal diet -- I discussed the plan of care with Dr. Villatoro
--- NOTE | 2017-05-09 14:49 | Cardiology Consultation ---
Cardiology Consultation Date of Consultation: May 09, 2017. Attending Physician: Dr. Goyal Pt evaluation today including: conversation w/ patient, physical exam, chart review, lab review, review of studies, review of inpatient medication list, conversation w/ attending History of Present Illness This is a PGY1 resident note on the cardiology service - Please see official attending's consult for further discussion and recommendations 62yo male presents to ED s/p transfer from dialysis center in [place] for elevated HR. Pt has hx of CAD s/p CABG x 5 vessel, prior cardiac stenting, chronic systolic CHF, recently diagnosed a. flutter, and recent development of ESRD. Recently hospitalized for atrial flutter, chronic systolic CHF, ARF, DM2. Pt was tx'ed in ED for atrial flutter & variable AV block with metoprolol with good initial rate control and admitted on 15Aug for above. On my interview this morning, pt states he never had any CP, SOB, dizziness, syncope, or other particular c/o. Says he was told by the dialysis center his "heart rate was too fast" but never felt palpitations or other discomfort. He says he "sometimes" misses doses of his medications for "a couple days". A home health nurse visited him to help with meds but apparently they argued and the RN will not be returning. When asked what meds he takes at home, he says "the ones they give me" but seems unsure of specifics. He says he doesn't have a regular redevelopment specialist "for awhile". He repeatedly said he understands why he' s here but wants to go home isac to take care of work he's missing. He denied any present CP, SOB, abd pain, dizziness, CORREIA, N/V, dark stools, known hematuria , or other acute c/o. Past Medical/Surgical History PMH: CAD, PVD, chronic systolic CHF, atrial flutter, ESRD on dialysis, uncontrolled DM2, hyperparathyroidism, anemia of chronic disease, carotid stenosis, hx MRSA. PSH: CABG x 5 vessel (2013), prior cardiac stenting (? x2 vessel, unknown date) , right inguinal hernia repair, appendectomy as baby. Family History No pertinent family history FH: Father of Hep C; Mother of oral cancer. No known NC or CAD in 1st degree relatives. 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 Prior smoker 1.5 ppd x 15yr but quit 5yr ago. Denies etoh. 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 Review of Systems Constitutional: No fever, No chills Respiratory: No cough, No sputum, No wheezing, No shortness of breath, No dyspnea on exertion, No dyspnea at rest, No hemoptysis Cardiac: No chest pain, No orthopnea, No PND, No edema, No claudication, No palpitations Abdomen: No nausea, No vomiting, No diarrhea Male : No dysuria Neurologic: No memory loss, No weakness Skin: + rash (chronic skin changes on (B)LE) Allergies Coded Allergies: No Known Allergies (Unverified , 04/29/17) Medications Home meds (from [facility] d/c paperwork on [id number]): - Warfarin 5 mg daily - Cipro 500 mg daily - Digoxin 0.125 mg daily - Lasix 40 mg BID - Gabapentin 100 mg BID - [place] 5/325 mg 1 tab q4h prn - ASA 325 daily - Calcitrol 0.5 mcg 3x per week - Coreg 6.25 mg BID - Colace 100 mg daily - Vit D 50,000 unit q week - Tricor 145 mg daily - Fish Oil daily - Nitrostat 0.4 mg ut prn Current Inpatient Medications Medications (Trade) Dose Ordered Sig/Mikie Route Start Time Stop Time Status Last Admin Dose Admin Acetaminophen (Tylenol Tab) 650 mg Q4H PRN PO 05/07/17 16:45 06/06/17 16:44 Ondansetron HCl (Zofran Inj) 4 mg Q6H PRN IV 05/07/17 16:45 06/06/17 16:44 Nitroglycerin (Nitrostat Tab) 0.4 mg UD PRN SL 05/07/17 16:45 06/06/17 16:44 Insulin Glargine (Lantus Solostar Pen) 10 units HS SC 05/07/17 21:00 06/06/17 20:59 05/08/17 21:06 10 UNITS Furosemide (Lasix Tab) 40 mg BID17 PO 05/07/17 17:00 06/06/17 16:59 8/17/17 08:11 40 MG Gabapentin (Neurontin Cap) 100 mg BID PO 05/07/17 21:00 06/06/17 20:59 05/09/17 08:11 100 MG Warfarin Sodium (Coumadin Tab) 5 mg DAILY@1600 PO 05/08/17 16:00 06/07/17 15:59 05/08/17 17:22 5 MG Insulin Aspart (novoLOG ASPART) SLIDING SCALE G... ACHS SC 05/07/17 21:00 06/06/17 20:59 05/09/17 12:13 8 UNITS Glucose (Glucose 40% Gel) 15-30 GRAMS 15 GRAMS... UD PRN PO 05/07/17 17:00 06/06/17 16:59 Glucose (Glucose Chew Tab) 4-8 Tablets 4 Tabl... UD PRN PO 05/07/17 17:00 06/06/17 16:59 Dextrose (Dextrose 50% 50ML Syringe) 25-50ML OF 50% DW IV FOR... UD PRN IV 05/07/17 17:00 06/06/17 16:59 Glucagon (Glucagon Inj) 1 mg UD PRN SQ 05/07/17 17:00 06/06/17 16:59 Aspirin (Ecotrin Tab) 81 mg QAM PO 05/08/17 09:00 06/07/17 08:59 05/09/17 08:11 81 MG Heparin Sodium (Porcine) (Heparin Sq 5000 Unit/0.5ml) 5,000 unit Q8 SQ 05/08/17 14:00 06/06/17 20:59 05/09/17 14:30 5,000 UNIT Temazepam (Restoril Cap) 7.5 mg HS PRN PO 05/08/17 19:00 06/07/17 18:59 Carvedilol (Coreg Tab) 12.5 mg BID PO 05/09/17 21:00 06/06/17 20:59 UNV Physical Exam Vital Signs Past 12 Hours Date Time Temp Pulse Resp B/P (MAP) Pulse Ox O2 Delivery O2 Flow Rate FiO2 05/09/17 12:13 36.8 90 18 104/66 (79) 97 Room Air 05/09/17 12:00 Room Air 05/09/17 08:03 36.8 116 20 118/82 (94) 97 Room Air 05/09/17 08:00 Room Air 05/09/17 04:05 37.0 106 20 97/63 (74) 97 Room Air 05/09/17 04:00 Nasal Cannula 2.0 Neck: supple (Right IJ since removed, bandage c/d/i in place) Lungs: Respiratory effort: no dyspnea Auscultation: no wheezing, decreased breath sounds (at (B) bases) Cardiovascular: Heart Auscultation: normal S1, normal S2, no murmurs, irregular rate rhythm Peripheral Pulses: Bruits: none appreciated Carotid Pulse: normal on the left, normal on the right Radial Pulse: normal on the left, normal on the right Dorsalis Pedis Pulse: normal on the left, normal on the right - Bilateral lower extremities have 2+ edema, dry mildly-red skin, with some irregular ulceration but no present drainage. - Right upper chest permcath in place, dressing c/d/i Data Laboratory Results: Last 24 Hours Test 05/08/17 16:15 05/08/17 19:39 05/08/17 20:28 05/09/17 05:58 Bedside Glucose 150 mg/dl 180 mg/dl Triglycerides Level 179 mg/dl Cholesterol Level 122 mg/dl HDL Cholesterol 31 mg/dl LDL Cholesterol, Calculated 55 mg/dl VLDL Cholesterol, Calculated 36 mg/dl Cholesterol/HDL Ratio 3.9 Prothrombin Time 12.0 SECONDS Prothromb Time International Ratio 1.1 Sodium Level 136 mmol/L Potassium Level 4.4 mmol/L Chloride Level 100 mmol/L Carbon Dioxide Level 28 mmol/L Anion Gap 8.0 mmol/L Blood Urea Nitrogen 37 mg/dl Creatinine 4.30 mg/dl Est Creatinine Clear Calc Drug Dose 21.6 ml/min Estimated GFR () 16.1 Estimated GFR (Non- 13.9 BUN/Creatinine Ratio 8.7 Random Glucose 203 mg/dl Calcium Level 8.9 mg/dl Phosphorus Level 3.5 mg/dl Magnesium Level 2.1 mg/dl Albumin 3.1 gm/dl Test 05/09/17 06:21 05/09/17 11:27 Bedside Glucose 205 mg/dl 249 mg/dl EKG: Atrial flutter, rate during exam varied from 50's to 110's. [id number] CXR 1. Cardiomegaly with no acute cardiopulmonary abnormality. 2. A 1.9 cm nodular density projects over the right lower lung. This may represent superimposition of shadows. Follow-up with a dedicated PA and lateral examination is recommended. 3. A right internal jugular central venous catheter is new from previous. [id number] Cardiac echo - Severe LVSD - Mod-severe RVSD - Mild biatrial and biventricular dilatation - Mild MR and TR - Normal LV wall thickness - EF 20-25% Assessment & Plan 1) Atrial flutter with RVR: Hx non-compliance with home meds. ED EKG showed aflutter with variable AV block, responded to b-blockers. Never had CP, SOB, and TnI trend has been stable around 0.05. HR this morning ranges 50's to 110' s with more activity, ongoing irregular. INR was low, likely due to non- compliance with coumadin. Thought to increase rate control with coreg (not hypotensive on this admit thus far) and stop the digoxin, simplifying pt's medication regimen a little bit. Due to difficulty in controlling atrial flutter, may need antiarrhythmic in future. Pt not likely to agree to ROBERTO at present prior to starting the same on this admission. 2) Ischemic Cardiomyopathy / Chronic systolic CHF: Last echo Apr 2017 as above. Recent hospitalization for same. On b-brenda for rate control here. Thought to increase his coreg here towards maximal medical management. Pt is not presently interested in placement of an ICD in the near future, though was asked to think about it. On lasix & hemodialysis for volume control. Attending prefers leaving lasix dosing to nephro recommendations due to their ongoing dialysis. 3) ESRD: Now on HD, new TDC port placed. Nephro following as inpt. Next dialysis scheduled for tomorrow. 4) CAD and PAD: On ASA and coreg. Gabapentin for the neuropathy. Reiterated with pt the importance of taking his medication regularly and f/u with cardiology. He seemed more amenable to the latter, but agreed to work on both. Discussed all the above with cardiology attending at bedside and immediately thereafter. Please see his official consult note for further discussion and official recommendations. NIDIA, PGY1 Family Medicine CARDIOLOGY ATTENDING ADDENDUM: SEE MY NOTE. Resident Tracking Resident Involvement: Resident Care Provided Care Provided: Adult [facility] Medicine (cardiology consult)
[2017-05-09 16:07] VITALS: BP 105/75; PULSE 68; TEMP 36.5; O2SAT 98
[2017-05-09] MEDS: WARFARIN SOD 5 MG TAB PO SCH (16:27)
--- NOTE | 2017-05-09 16:45 | Progress Note ---
Subjective Date of Service: May 09, 2017. Subjective Pt evaluation today including: conversation w/ patient, physical exam, chart review, lab review, review of studies, conversation w/ operations consultant, review of inpatient medication list Report doing okay, heart rate is better controlled, eating and voiding okay, Problem List Medical Problems: (1) Atrial fibrillation with rapid ventricular response Status: Acute (2) Atrial fibrillation with RVR Status: Acute (3) Dehydration Status: Acute Review of Systems Constitutional: + fatigue, No fever, No chills, No sweats, No weight loss, No weakness, No problem reported Eyes: No worsening of vision, No eye pain, No redness, No discharge, No diplopia ENT: No hearing loss, No unusual epistaxis, No nasal symptoms, No sore throat, No tinnitus, No dental problems, No trouble swallowing Respiratory: No cough, No sputum, No wheezing, No shortness of breath, No dyspnea on exertion, No dyspnea at rest, No hemoptysis Cardiac: No chest pain, No orthopnea, No PND, No edema, No claudication, No palpitations Abdomen: No pain, No nausea, No vomiting, No diarrhea, No constipation Musculoskeletal: No joint pain, No muscle pain, No swelling, No calf pain Male : No dysuria, No urinary frequency, No incontinence, No nocturia more than once/night, No slowing stream, No hematuria Neurologic: No memory loss, No paralysis, No weakness, No numbness/tingling, No vertigo, No balance problems Psychiatric: No depression symptoms, No anhedonism, No anxiety, No insomnia, No substance abuse Heme: No abnormal bleeding/bruising, No clotting problems, No swollen lymph nodes, No night sweats Endo: No fatigue, No excessive thirst, No excessive urination Skin: No rash, No itch, No new/changing skin lesions, No color change, No bleeding Objective Vital Signs Date Time Temp Pulse Resp B/P (MAP) Pulse Ox O2 Delivery O2 Flow Rate FiO2 05/09/17 16:07 36.5 68 20 105/75 (85) 98 Room Air 05/09/17 16:00 Room Air 05/09/17 12:13 36.8 90 18 104/66 (79) 97 Room Air 05/09/17 12:00 Room Air 05/09/17 08:03 36.8 116 20 118/82 (94) 97 Room Air 05/09/17 08:00 Room Air 05/09/17 04:05 37.0 106 20 97/63 (74) 97 Room Air 05/09/17 04:00 Nasal Cannula 2.0 05/09/17 00:00 Nasal Cannula 2.0 05/08/17 23:47 37.3 56 19 101/76 (84) 96 Nasal Cannula 2.0 05/08/17 20:00 Room Air 05/08/17 20:00 36.7 56 20 102/72 (82) 98 Nasal Cannula 2.0 05/08/17 17:23 124 Physical Exam General Appearance: WD/WN, no apparent distress Eyes: normal inspection, PERRL, EOMI, sclerae normal ENT: normal ENT inspection, hearing grossly normal, pharynx normal Neck: supple, no adenopathy, thyroid normal, no JVD, no carotid bruits, trachea midline Respiratory/Chest: chest non-tender, normal breath sounds, no respiratory distress, no accessory muscle use, + decreased breath sounds, + pertinent finding (right anterior chest wall catheter) Cardiovascular: no gallop, no JVD, no murmur, + irregularly irregular Abdomen: normal bowel sounds, non tender, soft, no organomegaly, no pulsatile mass Extremities: normal range of motion, non-tender, normal inspection, no pedal edema, no calf tenderness, normal capillary refill, pelvis stable Neurologic/Psychiatric: 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 II-XII nml as tested, no motor/sensory deficits, alert, normal mood/affect, oriented x 3 Skin: normal color, warm/dry, no rash Lymphatic: no adenopathy Laboratory Results Last 24 Hours Test 05/08/17 19:39 05/08/17 20:28 05/09/17 05:58 05/09/17 06:21 Triglycerides Level 179 mg/dl Cholesterol Level 122 mg/dl HDL Cholesterol 31 mg/dl LDL Cholesterol, Calculated 55 mg/dl VLDL Cholesterol, Calculated 36 mg/dl Cholesterol/HDL Ratio 3.9 Bedside Glucose 180 mg/dl 205 mg/dl Prothrombin Time 12.0 SECONDS Prothromb Time International Ratio 1.1 Sodium Level 136 mmol/L Potassium Level 4.4 mmol/L Chloride Level 100 mmol/L Carbon Dioxide Level 28 mmol/L Anion Gap 8.0 mmol/L Blood Urea Nitrogen 37 mg/dl Creatinine 4.30 mg/dl Est Creatinine Clear Calc Drug Dose 21.6 ml/min Estimated GFR () 16.1 Estimated GFR (Non- 13.9 BUN/Creatinine Ratio 8.7 Random Glucose 203 mg/dl Calcium Level 8.9 mg/dl Phosphorus Level 3.5 mg/dl Magnesium Level 2.1 mg/dl Albumin 3.1 gm/dl Test 05/09/17 11:27 05/09/17 16:10 Bedside Glucose 249 mg/dl 180 mg/dl Assessment and Plan 62yo male admitted on 05/07/2017 with a. flutter with RVR, improved Past medical history CAD s/p CABG, chronic systolic CHF, recently diagnosed a. flutter, and recent development of ESRD a. flutter with RVR Likely is due to noncompliance with medications. highly doubt he has been taking his coumadin either as his INR on day of discharge recently was 1.2 and an was no same upon admission Discussed with distance learning administrator increase rate control with coreg and stop the digoxin, simplifying pt's medication regimen which may help for noncompliance Patient now agreed to ROBERTO and cardioversion for now, Ischemic Cardiomyopathy / Chronic systolic CHF: Last echo Apr 2017 as above. Recent hospitalization for same. Continue beta brenda, restart Lasix in conjunction with freight flagman because patient currently is in dialysis ESRD: Now on HD, new TDC port placed. Nephro following as inpt. Next dialysis scheduled for tomorrow. CAD and PAD: On ASA and coreg. Gabapentin for the neuropathy. Has give additional dose of 2 mg Coumadin on top of 5 mg by mouth daily, follow- up INR GI and DVT prophylaxis is covered Possible discharge home tomorrow Continued [facility] stay due to: multiple IV medications needed Discharge planning: home
[2017-05-09 19:55] VITALS: BP 113/86; PULSE 91; TEMP 36.9; O2SAT 97
[2017-05-09] MEDS: CARVEDILOL 12.5 MG TAB PO SCH (21:01)
[2017-05-09] MEDS: INSULIN GLARGINE SOLOSTAR 100 UNITS/ML 3 ML PEN SC SCH (21:02)
--- NOTE | 2017-05-09 23:26 | CARDIOLOGY CONSULTATION ---
DATE OF CONSULTATION: 05/09/2017 TIME: 2205. CONSULTING PHYSICIAN: Dr. Villatoro. REASON FOR CONSULTATION: Atrial flutter. HISTORY OF PRESENT ILLNESS: Mr. Montgomery is a 62-year-old gentleman with a history significant for atrial flutter, multivessel CAD, status post PCI and then CABG x5, ischemic cardiomyopathy, type 2 diabetes, hypertension, dyslipidemia and end-stage renal disease, on hemodialysis. He was admitted to [facility] on 05/07/2017 from hemodialysis due to elevated heart rate. He states he was completely asymptomatic. He denied palpitations, syncope, near syncope, chest pain, shortness of breath, orthopnea, fevers, chills, abdominal pain, nausea, vomiting, or bleeding such as melena, hematochezia or hematuria. He admits that he is noncompliant with his medications. He takes only some of his medications at home including aspirin and gabapentin. He has not taken warfarin, digoxin or carvedilol. He is also noncompliant with recommended followup. He was seen in consultation by cardiology in the past and recommended that he follow up in 3 months. He did not follow up and today he stated that he did not feel the need to do so. He states that his biggest issue is the fact that he does not take medications. He is quite certain that his heart is racing because of this. He stated several times that he wants to go home. He also stated that he does not want any further invasive procedures for the time being and that he would like to go home. REVIEW OF SYSTEMS: As above and otherwise unremarkable. PAST MEDICAL AND SURGICAL HISTORY: 1. CAD, status post PCI in 2002 involving distal LAD. 2. CABG x5 at [facility] [place] 01/18/2014 including IBRAHIM to LAD, SVG to diagonal, SVG sequential graft to OM2 and OM4, and PDA. 3. Ischemic cardiomyopathy with severely reduced LV systolic function. 4. Dyslipidemia. 5. Hypertension. 6. TIA. 7. Diabetes with diabetic neuropathy. 8. End-stage renal disease, on hemodialysis. 9. Status post appendectomy. OUTPATIENT MEDICATIONS: He has not been taking his cardiac medications but admits to taking gabapentin and aspirin. He has not been taking Coumadin, carvedilol or digoxin. INPATIENT MEDICATIONS: Include aspirin 81 mg daily, carvedilol 6.25 mg b.i.d., digoxin 0.125 mg daily, Lasix 40 mg p.o. b.i.d., gabapentin 100 mg b.i.d., heparin 5000 units subcu q. 8 hours, Coumadin 5 mg. ALLERGIES: No known drug allergies. SOCIAL HISTORY: He is and lives with his and son in a farm. Quit smoking in 2013 after approximately 1.5 packs per day for 15 years. No alcohol or drugs. FAMILY HISTORY: No known premature CAD. PHYSICAL EXAMINATION: VITAL SIGNS: Temperature 36.9 degrees, heart rate 91 beats per minute, respiration rate 22, blood pressure 113/86 mmHg, oxygen saturation 97% on room air. GENERAL: No acute distress. He is alert and oriented. HEENT: Anicteric sclerae. NECK: No appreciable JVD. No bruits. Normal carotid upstrokes bilaterally. CARDIAC: PMI is nonpalpable. There is no ventricular heave. Irregularly irregular. Normal S1, S2. No murmurs, rubs or gallops auscultated. LUNGS: Clear to auscultation bilaterally without wheezes, rales or rhonchi. ABDOMEN: Soft, nontender, nondistended, normoactive bowel sounds, no bruits noted. EXTREMITIES: 1+ radial pulses bilaterally. 1+ dorsalis pedis pulses bilaterally. 1+ bilateral lower extremity edema to the knees. No cyanosis. PSYCHIATRIC: Affect appears appropriate. ECG on 05/07/2017 at 1308 personally reviewed. Atrial flutter with variable AV block, heart rate 137 beats per minute. Telemetry personally reviewed. Atrial flutter. Repeat ECG on 05/07/2017 at 1420 demonstrated atrial flutter with variable AV block at 96 beats per minute. Most recent echocardiogram 04/30/2017, report reviewed: Severely reduced LV systolic function with an EF of 20-25%. Severe global hypokinesis. Moderate to severe RV systolic dysfunction. Mild biventricular dilation. Moderate biatrial dilation. Mild MR. Mild TR according to report. Chest x-ray 05/07/2017, report reviewed. 1.9 cm nodular density over the right lower lung which may represent superimposition of shadows. Right IJ central venous catheter. No acute cardiopulmonary abnormality reported. LABORATORY DATA: White blood cell count 8.14, hemoglobin 10.1, platelets 108. Sodium 136, potassium 4.4, BUN 37, creatinine 4.3, albumin 3.1. Triglycerides 179, total cholesterol 122, LDL 55, HDL 31. ProBNP 13,545. Peak troponin 0.064. Digoxin level 0.8. INR upon presentation 1.2, currently 1.1. ASSESSMENT AND PLAN: 1. Atrial flutter: We discussed the fact that atrial flutter is not typically easily rate controlled. We discussed treatment options such as cardioversion. Given the fact that he is not adequately anticoagulated, we would recommend cardioversion following a transesophageal echo if no atrial appendage thrombus is noted. He is not interested in this and states that before he would undergo such procedures, he would want 2 or 3 separate opinions. He prefers a rate control strategy and states that his rate was not controlled due to the fact that he was not taking his medications. We will increase carvedilol to 12.5 mg twice daily given his cardiomyopathy and discontinue digoxin to help improve medication compliance. It may not be unreasonable in the future to use antiarrhythmic therapy such as amiodarone; however, once again, before conversion occurs, would like adequate anticoagulation. Could also consider ablation in the future if necessary. He wishes only for rate control strategy understanding that it may not be effective. Recommend anticoagulation for stroke risk reduction if no contraindication. Consider heparin drip while hospitalized. Goal INR 2-3. 2. Cardiomyopathy: He has reported ischemic cardiomyopathy. He does have edema but no significant JVD. Volume status is being managed per nephrology with dialysis and some diuretic therapy. Increase carvedilol to 12.5 mg twice daily in an attempt to optimize medications. Avoiding AKI inhibitor, ARB or Entresto due to his renal issues. Eventually would like to titrate carvedilol to 25 mg twice daily if blood pressure can tolerate. We discussed the role of ICD for primary prevention; however, he is not interested. We discussed the fact that it could be a life saving procedure. He continued to decline. 3. Coronary artery disease, status post percutaneous coronary intervention and then coronary artery bypass graft x5. Continue aspirin 81 mg daily indefinitely. HE IS INTOLERANT TO STATIN THERAPY. Continue beta brenda with adjustment as above. He denies any recent angina. 4. Elevated troponin: He has minimally elevated troponin levels. This could have been due to atrial flutter with rapid ventricular response or just due to the fact that he has end-stage renal disease as they were not significantly elevated. He has no angina and did not present with acute coronary syndrome. No further evaluation recommended at this time. 5. Medication noncompliance: We discussed the importance of taking medications as prescribed. 6. Hypertension: Blood pressure has been normotensive but also intermittently hypertensive and on 4 occasions mildly hypotensive with systolic blood pressure in the 90s. Hopefully, he can tolerate higher doses of beta brenda as noted above. Given the fact that he is typically normotensive or hypertensive, he should tolerate it. His blood pressure should tolerate this change. Monitor during dialysis, however, to ensure that it does not cause significant hypotension. 7. Disposition: Adjusting carvedilol as noted above. Plan of care has been discussed with Dr. Villatoro, the primary hospitalist. Highly complex medical issues as noted. Thank for allowing me to participate in care of Mr. Montgomery. GUERO
[2017-05-10] VITALS (20 sets, daily range): BP systolic 84–123; BP diastolic 51–77; PULSE 49–84; TEMP 36.3–36.9; O2SAT 95–99
[2017-05-10] MEDS: HEPARIN SOD 5000 UNIT/0.5 ML CARP SQ SCH ×2 (06:03→17:24)
[2017-05-10 06:19] LABS: HEMATOCRIT 32.9 % (42-52); MEAN CELL VOLUME 89.4 fL (80-100); MEAN CORPUSCULAR HEMOGLOBIN 27.7 pg (25-34); RED BLOOD COUNT 3.68 M/uL (4.7-6.1); WHITE BLOOD COUNT 7.33 K/uL (4.8-10.8)
[2017-05-10 06:31] LABS: INR 1.3 (0.9-1.1); PROTHROMBIN TIME (PATIENT) 13.7 SECONDS (9.0-12.0)
[2017-05-10 07:02] LABS: BUN/CREATININE RATIO 9.4 (10-20); CALCIUM 9.1 mg/dl (8.5-10.1); CREATININE 5.1 mg/dl (0.60-1.40); PHOSPHORUS 3.9 mg/dl (2.5-4.9); POTASSIUM 4.5 mmol/L (3.5-5.1)
[2017-05-10 07:04] LABS: MEAN PLATELET VOLUME 11.4 fL (7.4-10.4); PLATELET COUNT 90 K/uL (130-400); PLT ESTIMATE DECREASED
--- NOTE | 2017-05-10 07:27 | Cardiology Follow-Up ---
Subjective Date of Service: May 10, 2017. Pt evaluation today including: conversation w/ patient, physical exam, chart review, lab review History of Present Illness This is a PGY1 resident progress note on the cardiology service - Please see official attending's addendum / separate note for recommendations Found pt sitting on edge of gurney, awake, alert, conversational, appears comfortable. Denies any particular overnight events, CP, SOB, or other acute c/ o. He became quite adamant that he get his dialysis this morning, that he be able to go home immediately after that, and that he transfer his dialysis to an outside facility beginning next session. When asked if he agreed to a ROBERTO today , he very strongly stated "no". No other acute pt concerns. 18Aug 62yo male presents to ED s/p transfer from dialysis center in [place] for elevated HR. Pt has hx of CAD s/p CABG x 5 vessel, prior cardiac stenting, chronic systolic CHF, recently diagnosed a. flutter, and recent development of ESRD. Recently hospitalized for atrial flutter, chronic systolic CHF, ARF, DM2. Pt was tx'ed in ED for atrial flutter & variable AV block with metoprolol with good initial rate control and admitted on 15Aug for above. On my interview this morning, pt states he never had any CP, SOB, dizziness, syncope, or other particular c/o. Says he was told by the dialysis center his "heart rate was too fast" but never felt palpitations or other discomfort. He says he "sometimes" misses doses of his medications for "a couple days". A home health nurse visited him to help with meds but apparently they argued and the RN will not be returning. When asked what meds he takes at home, he says "the ones they give me" but seems unsure of specifics. 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 He repeatedly said he understands why he' s here but wants to go home isac to take care of work he's missing. He denied any present CP, SOB, abd pain, dizziness, CORREIA, N/V, dark stools, known hematuria , or other acute c/o. Social History Smoking Status: Former Smoker History of Alcohol Use: No Review of Systems Respiratory: No cough, No sputum, No wheezing, No shortness of breath, No dyspnea on exertion, No dyspnea at rest, No hemoptysis Cardiac: No chest pain, No orthopnea, No PND, No edema, No claudication, No palpitations Objective Vital Signs Past 12 Hours Date Time Temp Pulse Resp B/P (MAP) Pulse Ox O2 Delivery O2 Flow Rate FiO2 05/10/17 04:00 Room Air 05/10/17 03:35 36.9 76 18 100/73 (82) 95 05/10/17 00:11 36.7 63 18 100/73 (82) 97 Room Air 05/10/17 00:00 Room Air 05/09/17 20:00 Room Air 05/09/17 19:55 36.9 91 22 113/86 (95) 97 Room Air Last Recorded Weight-Kilograms: 99.400 Physical Exam Lungs: Respiratory effort: no dyspnea Auscultation: no wheezing, decreased breath sounds (at (B) bases, improved from yesterday) Cardiovascular: Heart Auscultation: normal S1, normal S2, no murmurs, irregular rate rhythm Peripheral Pulses: Bruits: none appreciated Carotid Pulse: normal on the left, normal on the right Radial Pulse: normal on the left, normal on the right Dorsalis Pedis Pulse: normal on the left, normal on the right - Bilateral lower extremities have 2+ edema, dry mildly-red skin, with some irregular ulceration but no present drainage (roughly unchanged from yesterday) . - Right upper chest permcath in place, dressing c/d/i Data Laboratory Results: Last 24 Hours Test 05/09/17 11:27 05/09/17 16:10 05/09/17 20:06 05/10/17 05:52 Bedside Glucose 249 mg/dl 180 mg/dl 244 mg/dl White Blood Count 7.33 K/uL Red Blood Count 3.68 M/uL Hemoglobin 10.2 g/dL Hematocrit 32.9 % Mean Corpuscular Volume 89.4 fL Mean Corpuscular Hemoglobin 27.7 pg Mean Corpuscular Hemoglobin Concent 31.0 g/dl RDW Standard Deviation 47.6 fL RDW Coefficient of Variation 14.5 % Platelet Count 90 K/uL Mean Platelet Volume 11.4 fL Platelet Estimate DECREASED Prothrombin Time 13.7 SECONDS Prothromb Time International Ratio 1.3 Sodium Level 135 mmol/L Potassium Level 4.5 mmol/L Chloride Level 100 mmol/L Carbon Dioxide Level 26 mmol/L Anion Gap 9.0 mmol/L Blood Urea Nitrogen 48 mg/dl Creatinine 5.10 mg/dl Est Creatinine Clear Calc Drug Dose 18.3 ml/min Estimated GFR () 13.1 Estimated GFR (Non- 11.3 BUN/Creatinine Ratio 9.4 Random Glucose 194 mg/dl Calcium Level 9.1 mg/dl Phosphorus Level 3.9 mg/dl Albumin 3.0 gm/dl Test 05/10/17 07:03 Bedside Glucose 205 mg/dl Imaging: EKG: Telemetry reviewed: Assessment and Plan 1) Atrial flutter with RVR: A flutter on rhythm strip this morning. - Increased his carvedilol for rate control, stopped his digoxin. - Pt remains against ROBERTO during this hospital admit after discussion this morning. - Goal INR 2-3. This morning INR 1.3. - Importance of taking his medication once eventually d/c home. 2) Ischemic Cardiomyopathy / Chronic systolic CHF: - Fluid status mostly regulated via dialysis & nephro recs on lasix use. Reportedly on track for next session this morning. - Avoid AKI-I, ARB, or Entresto. - Pt not interested in ICD at this present time. 3) ESRD: Now on HD, new TDC port placed. Nephro following as inpt. Dialysis today. 4) CAD and PAD: On ASA and coreg. Pt is intolerant to statins. Gabapentin for the neuropathy. Will discuss all the above with attending this morning on rounds. NIDIA, PGY1 Family Medicine ADDENDUM BY ATTENDING CARDIOLOGY: SEE MY NOTE.
[2017-05-10] MEDS: CARVEDILOL 12.5 MG TAB PO SCH (08:27)
[2017-05-10] MEDS: FUROSEMIDE 40 MG TAB PO SCH ×2 (08:27→17:20)
[2017-05-10] MEDS: GABAPENTIN 100 MG CAP PO SCH (08:27)
[2017-05-10] MEDS: ASPIRIN 81 MG ECTAB PO SCH (08:28)
[2017-05-10] MEDS: INSULIN ASPART 100 UNITS/ML 3 ML PEN SC SCH ×3 (08:30→17:24)
--- NOTE | 2017-05-10 11:36 | CARDIOLOGY PROGRESS NOTE ---
DATE: 05/10/2017 TIME: 11:16 a.m. SUBJECTIVE: He continues to feel well without chest pain, shortness of breath, syncope, near syncope, palpitations. He went to get his dialysis done soon, so he can go home. He wants to be discharged today. Those were his major concerns today. He believes that his edema has improved. OBJECTIVE: VITAL SIGNS: Temperature is 36.6, heart rate charted is 54 beats per minute, respiration rate 18, blood pressure 123/77 mmHg, oxygen saturation 96% on room air. On telemetry, his heart rate was in the 90s and the overall trend heart rate is mostly below 100 with intermittent episodes greater than 100. No significant bradycardia. Weight 99.4 kg. GENERAL: No acute distress. He is alert. NECK: No appreciable JVD. CARDIAC: Irregularly irregular, no ventricular heave. Normal S1, S2. No audible murmurs, rubs or gallops. LUNGS: Clear to auscultation bilaterally without wheezes, rales or rhonchi. ABDOMEN: Soft, nontender, nondistended. Normoactive bowel sounds. EXTREMITIES: 1+ bilateral lower extremity edema. No cyanosis. PSYCHIATRIC: Affect appears appropriate. MEDICATIONS: Include carvedilol 12.5 mg p.o. b.i.d., first dose of the increased dose was last night; aspirin 81 mg daily, Lasix 40 mg p.o. b.i.d., heparin 5000 units subQ q. 8 hours, Coumadin 5 mg daily. LABORATORY DATA: White blood cell count 7.33, hemoglobin 10.2, platelets 90. Sodium 135, potassium 4.5, BUN 48, creatinine 5.1, albumin 3. INR is 1.3. Telemetry personally reviewed. Atrial flutter as noted above. ASSESSMENT AND PLAN: 1. Atrial flutter: He appears to have persistent atrial flutter. He has been made aware that rate control strategy is not typically ideal, but he prefers to attempt this approach first. He was noncompliant with rate-controlling medications since his last hospitalization. Continue increased dose of Carvedilol 12.5 mg twice daily for now. This can later be increased to 25 mg twice daily in the future, and also as an outpatient if he goes home in the next couple of days. Continue anticoagulation for stroke risk reduction. Medication compliance very important. He declines transesophageal echo and cardioversion. He does not want any invasive measures at this time. 2. Cardiomyopathy: He declines implantable cardioverter defibrillator. Avoiding AKI inhibitor, ARB or Entresto due to her renal issues. Titrating carvedilol. In the future, carvedilol can be increased to 25 mg twice daily as tolerated. 3. Coronary artery disease: He is status post percutaneous coronary intervention and coronary artery bypass grafting x5. No angina. Continue aspirin 81 mg daily, indefinitely. Continue beta brenda. He is intolerant to statin therapy. 4. Medication noncompliance: Recommended that he take medications as prescribed. 5. Hypertension: Blood pressure has been normotensive over the past 24 hours. Continue current regimen as noted. 6. Disposition: No further recommendations from a cardiac standpoint at this time. He has not followed up as an outpatient. Recommend that he follow up in our [place] office with cardiology in the next few weeks. He stated today that he would like to follow up in [place] for cardiology care. GUERO
[2017-05-10] MEDS ORDERED: ASPEC81 PO (13:11)
[2017-05-10] MEDS ORDERED: CRG125 PO (13:11)
--- NOTE | 2017-05-10 13:17 | Discharge Instructions ---
Discharge Instructions Date of Service May 10, 2017. Admission Reason for Admission: Atrial Flutter,Esrd Discharge Discharge Diagnosis / Problem: flutter with RVR Discharge Goals Goal(s): Decrease discomfort, Improve function, Increase independence, Improve disease control, Improve nutritional status, Learn about illness, Diagnostic testing, Therapeutic intervention, Prevent Disease Progression, Specific goals Activity Recommendations Activity Limitations: resume your previous activity . Instructions / Follow-Up Instructions / Follow-Up you have heart disease called flutter with RVR, likely from your missed dose of medications. we increased dose of Coreg and stop the digoxin, you also need to take medicine of coumadin as instructed, for your stoke prevention, you need to have Labs of PT/INR on saturday during dialysis, Rx of lab PT/INR is included in the discharge packet report the result to pcp to adjust the dose of coumadin, you need to call your pcp or go to emergency room if has signs of bleeding or bluish, Market Research Lead recommend procedure with called ROBERTO and cardioversion , he want to think about this for now, you need to talk to your family doctor about this and call to cardiology urine 1-2 You have kidney failure called ESRD: Need to continue dialysis with knuckle bender - you need to follow up with your primary care physician in 3-5 days, ELEVATOR SERVICE TECHNICIAN is helping to set appointment for you, - Please don't missed the appointment - take medication as instructed, never overdose or any misuse, or take with alcohol, because misuse of medicine may cause organ damage or , call your primary care physician if have questions of medicaitons. - call your primary care physician OR go to local emergency room if has any fever/chill, chest pain, shortness of breathing, nausea/vomiting/abdominal pain , facial droop/slurry speech/local weakness, or if has any questions. - fall precaution - diet as instructed - you need to follow up with your subspecialist - you should understand that it is important to follow up the above instruction , and "not following the above instruction" may cause delayed or missed care of your medical conditions which may cause permanent organ damage and even . Current Hospital Diet Patient's current hospital diet: Low Sodium Diet (2gm Na), Renal Diet, Diabetes Type 2 Diet Discharge Diet Recommended Diet: Low Sodium Diet (2gm Na) Procedures Procedures Performed: No Pending Studies Studies pending at discharge: no Laboratory Results Hemoglobin A1c Test 05/01/17 05:14 Range/Units Estimated Average Glucose 214 mg/dl Hemoglobin A1c 9.1 H 4.5-5.6 % Lipid Panel Test 05/08/17 19:39 Range/Units Triglycerides Level 179 H 0-150 mg/dl Cholesterol Level 122 0-200 mg/dl HDL Cholesterol 31 mg/dl Cholesterol/HDL Ratio 3.9 LDL Cholesterol, Calculated 55 mg/dl Medical Emergencies . Who to Call and When: Medical Emergencies: If at any time you feel your situation is an emergency, please call 911 immediately. . Non-Emergent Contact Non-Emergency issues call your: Primary Care Provider, Market Research Lead . . "Provider Documentation" section prepared by Subhash Villatoro. . VTE Core Measure Inpt VTE Proph given/why not?: Unfractionated heparin SQ
--- NOTE | 2017-05-10 16:56 | Discharge Summary ---
Discharge Summary Date of Service May 10, 2017. Discharge Summary Admission Date: May 07, 2017 at 16:28 Discharge Date: May 10, 2017 Principal Diagnosis: flutter with RVR, likely from medication noncompliance Problems/Secondary Diagnoses: Subtherapeutic INR ESRD on dialysis Procedures: No Consultations: Cardiology and nephrology Medication Reconciliation New Medications: Aspirin (Aspirin EC Low Dose) 81 Mg Ectab 81 MG PO QAM for 30 Days Carvedilol (Carvedilol) 12.5 Mg Tab 12.5 MG PO BID for 30 Days, #60 TAB Continued Medications: Ciprofloxacin Hcl (Cipro) 500 Mg Tab 500 MG PO HS X 10 DAYS. STARTED ON 05/04/17 Digoxin (Digoxin) 0.125 Mg Tab 0.125 MG PO DAILY Furosemide (Lasix) 40 Mg Tab 40 MG PO BID Gabapentin (Neurontin) 100 Mg Cap 100 MG PO BID Glyburide-Metformin (Glucovance 5/500 Mg) 1 Tab Tab 2 TAB PO BID Insulin Glargine (Lantus Solostar) 100 Unit/Ml Inj 10 UNITS SC DAILY Warfarin Sod (Jantoven) 5 Mg Tab 5 MG PO DAILY Discharge Exam Sitting up in chair, heart rate controlled, conversational, no complaint Review of Systems: Constitutional: No fever, No chills, No sweats, No weight loss, No weakness , No fatigue, No problem reported ENT: No hearing loss, No unusual epistaxis, No nasal symptoms, No sore throat, No tinnitus, No dental problems, No trouble swallowing, No problem reported Respiratory: No cough, No sputum, No wheezing, No shortness of breath, No dyspnea on exertion, No dyspnea at rest, No hemoptysis, No problem reported Cardiovascular: No chest pain, No orthopnea, No PND, No edema, No claudication, No palpitations, No problem reported Abdomen: No pain, No nausea, No vomiting, No diarrhea, No constipation, No GI bleeding, No problem reported Musculoskeletal: No joint pain, No muscle pain, No swelling, No calf pain, No problem reported Genitourinary - Male: No hematuria, No dysuria, No urinary frequency, No urinary urgency, No urinary hesitancy, No urinary retention, No urinary incontinence, No penile discharge, No lesions, No impotence, No problem reported Neurologic: No memory loss, No paralysis, No weakness, No numbness/tingling , No vertigo, No balance problems, No problem reported Psychiatric: No depression symptoms, No anhedonism, No anxiety, No insomnia , No substance abuse, No problem reported Endocrine: No fatigue, No excessive thirst, No excessive urination, No problem reported Hematologic / Lymphatic: No abnormal bleeding/bruising, No clotting problems , No swollen lymph nodes, No night sweats, No problem reported Integumentary: No rash, No itch, No new/changing skin lesions, No color change, No bleeding, No problem reported Physical Exam: General Appearance: WD/WN, no apparent distress Eyes: normal inspection, PERRL, EOMI ENT: normal ENT inspection, hearing grossly normal, TMs normal Neck: supple, no adenopathy, thyroid normal Respiratory/Chest: chest non-tender, + decreased breath sounds Cardiovascular: no edema, no gallop, + irregularly irregular Abdomen / GI: normal bowel sounds, non tender, soft, no organomegaly, no pulsatile mass Extremities: normal inspection, no calf tenderness, normal capillary refill , no pedal edema, normal range of motion Neurologic/Psychiatric: traffic engineering director II-XII nml as tested, no motor/sensory deficits , alert, normal mood/affect, normal reflexes, oriented x 3 Skin: normal color, warm/dry, no rash Hospital Course 62yo male admitted on 05/07/2017 with a. flutter with RVR, improved Past medical history CAD s/p CABG, chronic systolic CHF, recently diagnosed a. flutter, and recent development of ESRD a. flutter with RVR Likely is due to noncompliance with medications. highly doubt he has been taking his coumadin either as his INR on day of discharge recently was 1.2 and an was no same upon admission Discussed with speedboat driver increase rate control with coreg at 12.5 mg po [place] , patient tolerated well, and stop the digoxin, simplifying pt's medication regimen which may help for noncompliance Patient not agreed to ROBERTO and cardioversion for now, Ischemic Cardiomyopathy / Chronic systolic CHF: Last echo Apr 2017 as above. Recent hospitalization for same. Continue beta brenda, restart Lasix in conjunction with gasoline plant operator because patient currently is in dialysis ESRD: Now on HD, new TDC port placed. Nephro following as inpt. Next dialysis will be next Saturday, encourage patient to follow-up CAD and PAD: On ASA and coreg. Gabapentin for the neuropathy. Has give additional dose of 2 mg Coumadin on top of 5 mg by mouth daily, follow- up INR Patient has significant medicine noncompliant, with present of nurse, has several times extensive counseling about medicine compliant, patient said he will remember to take medicine from now, and we will do the blood thinner level checking I advised him to talk to family doctor if have any questions, I have outpatient case manager to setting up appointment with PCP in 3-5 days, I also give prescription for next Saturday PT/INR checking during the dialysis, PCP please adjust Coumadin dose And follow-up all of the about patient's condition. GI and DVT prophylaxis is covered Possible discharge home tomorrow Instructions / Follow-Up you have heart disease called flutter with RVR, likely from your missed dose of medications. we increased dose of Coreg and stop the digoxin, you also need to take medicine of coumadin as instructed, for your stoke prevention, you need to have Labs of PT/INR on saturday during dialysis, Rx of lab PT/INR is included in the discharge packet report the result to pcp to adjust the dose of coumadin, you need to call your pcp or go to emergency room if has signs of bleeding or bluish, Personal Financial Counselor recommend procedure with called ROBERTO and cardioversion , he want to think about this for now, you need to talk to your family doctor about this and call to cardiology urine 1-2 You have kidney failure called ESRD: Need to continue dialysis with gasoline plant operator - you need to follow up with your primary care physician in 3-5 days, EYEGLASS MAKER is helping to set appointment for you, - Please don't missed the appointment - take medication as instructed, never overdose or any misuse, or take with alcohol, because misuse of medicine may cause organ damage or , call your primary care physician if have questions of medicaitons. - call your primary care physician OR go to local emergency room if has any fever/chill, chest pain, shortness of breathing, nausea/vomiting/abdominal pain , facial droop/slurry speech/local weakness, or if has any questions. - fall precaution - diet as instructed - you need to follow up with your subspecialist - you should understand that it is important to follow up the above instruction , and "not following the above instruction" may cause delayed or missed care of your medical conditions which may cause permanent organ damage and even . Total Time Spent: Greater than 30 minutes This includes examination of the patient, discharge planning, medication reconciliation, and communication with other providers. Discharge Instructions Please refer to the electronic Patient Visit Report (Discharge Instructions) for additional information. Additional Copies To Tomás Rodriguez M.D.; Josafat Goyal MD
[2017-05-10] MEDS: WARFARIN SOD 5 MG TAB PO SCH (17:20)
--- NOTE | 2017-05-10 18:52 | Dialysis Progress Note ---
Hemodialysis Note Date of Service May 10, 2017. Chief Complaint ESRD Subjective Rubio was seen and evaluated today during hemodialysis. He tolerated the treatment well. Dialyzer started to clot at the end of treatment. Blood pressure was low limiting UF. Heart rate ranging from 80-100. Rubio denied shortness of breath. He denied chest pains. He did not experience lightheadedness or dizziness. I discussed his disposition with the outpatient dialysis unit prior to discharge. Review of Systems A complete review of systems was performed. Pertinent positives are noted above. All other systems are negative. Vital Signs Last 8 Hrs Date Time Temp Pulse Resp B/P (MAP) Pulse Ox O2 Delivery O2 Flow Rate FiO2 05/10/17 17:30 36.5 49 20 99 Room Air 05/10/17 16:54 36.5 49 111/69 (83) 05/10/17 16:30 78 99/58 05/10/17 16:15 65 90/73 05/10/17 16:00 Room Air 05/10/17 16:00 49 103/70 05/10/17 15:52 36.3 61 20 94/58 (70) 99 Room Air 05/10/17 15:45 51 100/58 05/10/17 15:30 61 94/58 05/10/17 15:15 82 117/68 05/10/17 15:00 73 93/52 05/10/17 14:45 78 111/60 05/10/17 14:30 84 93/74 05/10/17 14:15 73 89/61 05/10/17 14:00 73 97/67 05/10/17 13:37 73 103/63 05/10/17 13:25 36.4 51 84/51 (62) 05/10/17 12:03 36.8 73 18 99/69 (79) 99 Room Air 05/10/17 12:00 Room Air I & O 24-Hour Column 05/11/17 07:59 Intake Total 420 ml Output Total 957 ml Balance -537 ml Last Recorded Weight Weight (Kilograms): 101.000 Physical Exam General Appearance: WD/WN, no apparent distress Head: normocephalic, atraumatic Eyes: normal inspection, sclerae normal ENT: normal ENT inspection, pharynx normal Neck: supple, no JVD Respiratory/Chest: lungs clear, no respiratory distress, no accessory muscle use Cardiovascular: regular rate, rhythm, no gallop, no murmur, + tachycardia Abdomen/GI: non tender, soft Extremities/Musculoskelatal: normal inspection, + pedal edema Neurologic/Psych: alert, oriented x 3 Social History Alcohol Use: none Drug Use: none Marital Status: (lives with and son) Housing Status: lives with family 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 ) Laboratory Results Past 24 Hours 05/10/17 05:52 05/10/17 05:52 Test 05/09/17 20:06 05/10/17 05:52 05/10/17 07:03 05/10/17 11:24 Bedside Glucose 244 mg/dl (70-99) 205 mg/dl (70-99) 248 mg/dl (70-99) Red Blood Count 3.68 M/uL (4.7-6.1) Mean Corpuscular Volume 89.4 fL (80-100) Mean Corpuscular Hemoglobin 27.7 pg (25-34) Mean Corpuscular Hemoglobin Concent 31.0 g/dl (32-36) RDW Standard Deviation 47.6 fL (36.4-46.3) RDW Coefficient of Variation 14.5 % (11.5-14.5) Mean Platelet Volume 11.4 fL (7.4-10.4) Platelet Estimate DECREASED Prothrombin Time 13.7 SECONDS (9.0-12.0) Prothromb Time International Ratio 1.3 (0.9-1.1) Anion Gap 9.0 mmol/L (3-11) Est Creatinine Clear Calc Drug Dose 18.3 ml/min Estimated GFR () 13.1 Estimated GFR (Non- 11.3 BUN/Creatinine Ratio 9.4 (10-20) Calcium Level 9.1 mg/dl (8.5-10.1) Phosphorus Level 3.9 mg/dl (2.5-4.9) Albumin 3.0 gm/dl (3.4-5.0) Test 05/10/17 16:17 Bedside Glucose 140 mg/dl (70-99) Allergies Coded Allergies: No Known Allergies (Unverified , 04/29/17) Impression (1) ESRD (end stage renal disease) on dialysis (2) Chronic systolic CHF (congestive heart failure) (3) Atrial flutter Rubio is a 62-year-old male with ESRD, CAD with an ischemic cardiomyopathy and chronic systolic CHF. He has diabetes mellitus and hypertension. He was admitted to [facility] from April 29 - with advanced CKD, new SVT and acute systolic CHF. He started hemodialysis during his admission. He presented to the ED three days ago with rapid atrial flutter. Admitted for management of atrial flutter and hyperglycemia and ESRD with volume overload. HD completed yesterday with UF 3 kg. Heart rate continues to fluctuate but patient asymptomatic. He notes no compliance with medications prior to admission. Recommendations -- Professional oversight for HD provided today -- Dr. Gaston updated regarding patient's admission and outpatient follow up -- Good Qb via TDC -- Follow up in outpatient HD clinic arranged -- Cardiology follow up reviewed -- Medications currently appropriate for renal function -- Continue furosemide to encourage UOP -- Renal diet
[2017-05-21] MEDS ORDERED: HYDR-5688 PO (08:42)
[2017-05-21] MEDS ORDERED: LOVEN (08:42)
[2017-05-21] MEDS ORDERED: ENOX30IN4 SQ (08:42)
[2017-06-20] MEDS ORDERED: ZLF50 PO (16:52)
[2017-06-20] MEDS ORDERED: DAPT500I IV (16:54)
== END 2017-05-10 17:45 | disposition home or self-care (01) | DRG 308 ==
LOC: C.EDB 13:00 → C.2E 16:28 → ENRESERV 16:56
PROVIDERS: ADMIT Internal Medicine; ATTEND Hospitalist
DX: I48.92 Unspecified atrial flutter (principal); N18.6 End stage renal disease; I50.22 Chronic systolic (congestive) heart failure; I12.0 Hypertensive chronic kidney disease with stage 5 chronic kidney disease or end stage renal disease; I25.10 Atherosclerotic heart disease of native coronary artery without angina pectoris; I25.5 Ischemic cardiomyopathy; E11.42 Type 2 diabetes mellitus with diabetic polyneuropathy; E11.22 Type 2 diabetes mellitus with diabetic chronic kidney disease; D69.6 Thrombocytopenia, unspecified; I73.9 Peripheral vascular disease, unspecified; Z79.01 Long term (current) use of anticoagulants; Z79.4 Long term (current) use of insulin; Z79.899 Other long term (current) drug therapy; Z87.891 Personal history of nicotine dependence; Z91.14 Patient's other noncompliance with medication regimen; Z99.2 Dependence on renal dialysis

== ENCOUNTER → 2017-05-13 | Outpatient (CLI) | payer OTHER ==
[~2017-05-13] MED LIST changes: +ASPEC81 PO; -ASPI325T45 PO; +B-COCAP20 PO; -CALC0.5C2 PO; -CARV6.252 PO; +CIPR1TAB10 PO; +CLOP1TAB15 PO; -CMD5 PO; -CPR500 PO; +CRG125 PO; +DAPT500I IV; +ENOX30IN4 SQ; -ERGO500037 PO; -FENO145T26 PO; +FRS/40 PO; +GABA-112 PO; +GABA1CAP PO; +GABA800T PO; +GLY/5 PO; +GLYB5TAB3 PO; +HYDR-4452 PO; +INSDGI SC; +INSU1INJ2 SC; +INSU1MIS SC; +LACT10SO17 PO; +LORA-741 PO; +LOVEN; -LSX40 PO; +METO25TA3 PO; +MIDO5TAB PO; +NRN/300 PO; -NRN100 PO; +NVLG SC; +PSYL48.59; +VANC1INJ94 IV; +WARF5TAB7 PO; +ZLF50 PO
[2017-05-13 14:03] LABS: ESTIMATED AVERAGE GLUCOSE 209 mg/dl; HA1C FLAG Normal (Normal)
[2017-05-13 14:26] LABS: BLOOD UREA NITROGEN 48 mg/dl (7-18); BUN/CREATININE RATIO 9.5 (10-20); CALCIUM 8.5 mg/dl (8.5-10.1); CARBON DIOXIDE 27 mmol/L (21-32); CHLORIDE 101 mmol/L (98-107); GLUCOSE 309 mg/dl (70-99); PHOSPHORUS 4.5 mg/dl (2.5-4.9); POTASSIUM 4.5 mmol/L (3.5-5.1); SODIUM 137 mmol/L (136-145)
[2017-05-13 14:41] LABS: BETA-HYDROXYBUTYRATE 0.46 mg/dL (0.2-2.81)
[2017-05-13 15:00] LABS: HEMATOCRIT 32.7 % (42-52); MEAN CELL VOLUME 89.6 fL (80-100); MEAN CORPUSCULAR HEMOGLOBIN 28.8 pg (25-34); MEAN CORPUSCULAR HGB CONC 32.1 g/dl (32-36); MEAN PLATELET VOLUME 12.5 fL (7.4-10.4); PLATELET COUNT 110 K/uL (130-400); RED BLOOD COUNT 3.65 M/uL (4.7-6.1); WHITE BLOOD COUNT 6.97 K/uL (4.8-10.8)
--- NOTE | 2017-05-23 11:48 | CODING QUERY MEDICAL NECESSITY ---
SUPPORTING DIAGNOSIS NEEDED A supporting diagnosis is required for the test/procedure performed on this patient in order for us to be reimbursed by the patient's insurance. Please provide a supporting diagnosis for the following test/procedure listed below next to the test name along with your signature. *If there is no additional diagnosis for this patient that would support the following test/procedure please document that below next to the test/procedure. Test(s)/Procedure(s) that require a supporting diagnosis: * HEMOGLOBIN A1C DIAGNOSIS: Provider Signature: Date: Thank you Zeinab Crowe [employer] Management Once completed, please kindly fax back to [phone] For questions please call [phone]
== END | disposition home or self-care (01) ==
LOC: C.LABMFLN 08:53
PROVIDERS: ATTEND Family Medicine
DX: I48.91 Unspecified atrial fibrillation (principal); Z79.01 Long term (current) use of anticoagulants; I50.9 Heart failure, unspecified; N18.4 Chronic kidney disease, stage 4 (severe); E11.9 Type 2 diabetes mellitus without complications

== ENCOUNTER 2017-05-21 12:56 | Inpatient (IN) | payer OTHER ==
[~2017-05-21] VITALS: Ht 180.3 cm; Wt 102.5 kg
[2017-05-21] VITALS (28 sets, daily range): BP systolic 60–177; BP diastolic 46–153; PULSE 72–117; TEMP 36.7–37.3; O2SAT 76–99; BMI 31.4
[~2017-05-21 12:56] MED LIST changes: -B-COCAP20 PO; -CLOP1TAB15 PO; -DAPT500I IV; -DOCU-94 PO; -GABA1CAP PO; -GABA800T PO; -GLY/5 PO; -HYDR-4452 PO; -INSDGI SC; -INSU1INJ2 SC; -INSU1MIS SC; -LACT10SO17 PO; -LORA-741 PO; -METO25TA3 PO; -MIDO5TAB PO; -NRN/300 PO; -NTRGSL/4 UT; -NVLG SC; -OMEG10007 PO; -PSYL48.59; -VANC1INJ94 IV; -ZLF50 PO
[2017-05-21] MEDS ORDERED: PIPERACILLIN/TAZOBACTAM 4.5 GM/100ML D5W IV STA (13:18)
[2017-05-21] MEDS ORDERED: SODIUM CHLORIDE 0.9% 1000ML 500 ML IV ONE (13:18)
[2017-05-21] MEDS ORDERED: DIGOXIN INJ 500 MCG/2 ML AMP IV STA (13:18)
--- NOTE | 2017-05-21 13:23 | EMERGENCY ROOM VISIT NOTE ---
History Report prepared by Jin: Jennie Wetzel Under the Supervision of: Dr. Tomás Peace M.D. First contact with patient: 13:09 Chief Complaint: CARDIAC ASSESSMENT Stated Complaint: HEART OUT OF RYTHEM, SENT BY DIALYSIS History of Present Illness The patient is a 62 year old male who presents to the Emergency Room for a cardiac assessment. The patient was getting dialysis and was sent to the ED because his heart was out of rhythm and he was hypotensive. Per nursing staff, the patient developed a fever prior to arrival. The patient denies having any chest pain, coughing, abdominal pain, vomiting or nausea. He states he missed his regular morning meds today, but was given them at dialysis. He states that this am he felt in baseline health. Source of History: patient Onset: just prior to arrival Position: other (cardiac assesment) Associated Symptoms: + fevers, No chest pain, No nausea, No vomiting, No abdominal pain Review of Systems See HPI for pertinent positives & negatives. A total of 10 systems reviewed and were otherwise negative. Past Medical & Surgical Medical Problems: (1) Acute renal failure (2) Afib (3) Anemia (4) Atrial flutter (5) CHF (congestive heart failure) (6) Chronic systolic CHF (congestive heart failure) (7) CKD (chronic kidney disease) stage 4, GFR 15-29 ml/min (8) Diabetic polyneuropathy (9) ESRD (end stage renal disease) on dialysis (10) Hyperphosphatemia (11) Metabolic acidosis (12) Volume overload Family History No pertinent family history Social History Smoking Status: Current Every Day Smoker Drug Use: none Marital Status: Housing Status: lives with family Occupation Status: disabled Current/Historical Medications Scheduled Aspirin (Aspirin EC Low Dose), 81 MG PO QAM Carvedilol (Carvedilol), 12.5 MG PO BID Ciprofloxacin Hcl (Cipro), 500 MG PO HS Clopidogrel (Plavix), 75 MG PO DAILY Digoxin (Digoxin), 0.125 MG PO Q1600 Docusate Sodium (Colace), 100 MG PO DAILY Fish Oil (Bristol-3), 1 CAP PO DAILY Furosemide (Lasix), 40 MG PO DAILY Gabapentin (Neurontin), 800 MG PO TID Glyburide (Diabeta), 10 MG PO DAILY Insulin Aspart (Novolog Penfill), 8 UNITS SC TIDM Insulin Glargine (Lantus), 20 UNIT SC QPM Lactulose (Chronulac), 15 ML PO QID Metoprolol Succ (Toprol Xl) (Toprol-Xl), 25 MG PO DAILY Nitroglycerin (Nitrostat), 0.4 MG UT PRN Warfarin Sod (Jantoven), 5 MG PO QAM Scheduled PRN Hydrocodone-Acetaminophen (Hydrocodone Bitartrate/Ac), 5 MG PO Q4H PRN for Pain Lorazepam (Ativan), 0.5 MG PO Q6H PRN for Anxiety Miscellaneous Medications Psyllium (Metamucil) Allergies Coded Allergies: No Known Allergies (Unverified , 05/21/17) Physical Exam Vital Signs Date Time Temp Pulse Resp B/P (MAP) Pulse Ox O2 Delivery O2 Flow Rate FiO2 05/21/17 14:27 103 20 74/52 96 Nasal Cannula 4.0 05/21/17 14:01 104 19 80/57 95 Nasal Cannula 4.0 05/21/17 13:48 103 22 95/53 95 Nasal Cannula 4.0 05/21/17 13:32 116 05/21/17 13:29 115 05/21/17 13:23 99 Nasal Cannula 6.0 05/21/17 13:18 93 Nasal Cannula 6.0 05/21/17 13:18 93 Nasal Cannula 6.0 05/21/17 13:00 37.8 139 24 68/48 88 Room Air Physical Exam GENERAL: Patient is in no acute distress. HEENT: No acute trauma, normocephalic atraumatic, mucous membranes moist, no nasal congestion, no scleral icterus. NECK: No stridor, no adenopathy, no meningismus, trachea is midline. LUNGS: Clear to auscultation bilaterally, no wheeze, no rhonchi, breath sounds equal. HEART: Irregular and tachycardic, no murmurs. ABDOMEN: Soft, nontender, bowel sounds positive, no hernias, no peritonitis. EXTREMITIES: Mild bilateral pedal edema with chronic skin change, mild erythema and warmth to both LEs consistent with an early cellulitis. NEUROLOGIC: Oriented x 3, no acute motor or sensory deficits, no focal weakness. SKIN: No rash, no jaundice, no diaphoresis. Medical Decision & Procedures ER Provider Diagnostic Interpretation: Radiology results as stated below per my review and radiologist interpretation: CHEST ONE VIEW PORTABLE FINDINGS: No pneumothorax. No pleural effusions. The heart remains mildly enlarged. Poststernotomy changes. Right jugular catheter terminates in the SVC. No focal lung consolidations to suggest pneumonia. No evidence for pulmonary edema. The right midlung zone nodule described on the prior study is not clearly identified on today's examination. IMPRESSION: Stable mild cardiomegaly. No acute process within the chest. Electronically signed by: Sergio Bray M.D. Laboratory Results 05/21/17 13:16 Red Blood Count 3.51, Mean Corpuscular Volume 88.9, Mean Corpuscular Hemoglobin 28.8, Mean Corpuscular Hemoglobin Concent 32.4, Mean Platelet Volume 11.6, Neutrophils (%) (Auto) 90.0, Lymphocytes (%) (Auto) 1.8, Monocytes (%) (Auto) 7.1, Eosinophils (%) (Auto) 0.3, Basophils (%) (Auto) 0.1, Neutrophils # (Auto) 12.31, Lymphocytes # (Auto) 0.25, Monocytes # (Auto) 0.97, Eosinophils # (Auto) 0.04, Basophils # (Auto) 0.02 05/21/17 13:16 Test 05/21/17 13:16 05/21/17 13:34 White Blood Count 13.69 K/uL (4.8-10.8) Red Blood Count 3.51 M/uL (4.7-6.1) Hemoglobin 10.1 g/dL (14.0-18.0) Hematocrit 31.2 % (42-52) Mean Corpuscular Volume 88.9 fL (80-100) Mean Corpuscular Hemoglobin 28.8 pg (25-34) Mean Corpuscular Hemoglobin Concent 32.4 g/dl (32-36) Platelet Count 75 K/uL (130-400) Mean Platelet Volume 11.6 fL (7.4-10.4) Neutrophils (%) (Auto) 90.0 % Lymphocytes (%) (Auto) 1.8 % Monocytes (%) (Auto) 7.1 % Eosinophils (%) (Auto) 0.3 % Basophils (%) (Auto) 0.1 % Neutrophils # (Auto) 12.31 K/uL (1.4-6.5) Lymphocytes # (Auto) 0.25 K/uL (1.2-3.4) Monocytes # (Auto) 0.97 K/uL (0.11-0.59) Eosinophils # (Auto) 0.04 K/uL (0-0.5) Basophils # (Auto) 0.02 K/uL (0-0.2) RDW Standard Deviation 49.8 fL (36.4-46.3) RDW Coefficient of Variation 15.6 % (11.5-14.5) Immature Granulocyte % (Auto) 0.7 % Immature Granulocyte # (Auto) 0.10 K/uL (0.00-0.02) Platelet Estimate DECREASED Red Blood Cell Morphology Unremarkable Prothrombin Time 60.1 SECONDS (9.0-12.0) Prothromb Time International Ratio 5.2 (0.9-1.1) Activated Partial Thromboplast Time 61.6 SECONDS (21.0-31.0) Partial Thromboplastin Ratio 2.4 Anion Gap 8.0 mmol/L (3-11) Est Creatinine Clear Calc Drug Dose 23.5 ml/min Estimated GFR () 18.1 Estimated GFR (Non- 15.6 BUN/Creatinine Ratio 4.7 (10-20) Calcium Level 8.9 mg/dl (8.5-10.1) Magnesium Level 1.7 mg/dl (1.8-2.4) Total Bilirubin 0.9 mg/dl (0.2-1) Aspartate Amino Transf (AST/SGOT) 12 U/L (15-37) Alanine Aminotransferase (ALT/SGPT) 20 U/L (12-78) Alkaline Phosphatase 180 U/L (45-117) Troponin I 0.064 ng/ml (0-0.045) Total Protein 6.6 gm/dl (6.4-8.2) Albumin 3.0 gm/dl (3.4-5.0) Globulin 3.6 gm/dl (2.5-4.0) Albumin/Globulin Ratio 0.8 (0.9-2) Thyroid Stimulating Hormone (TSH) 0.375 uIu/ml (0.300-4.500) Digoxin Level 1.0 ng/ml (0.8-2.0) Bedside Lactic Acid Venous 1.89 mmol/L (0.90-1.70) Date/Time Source Procedure Growth Status 05/21/17 14:30 Nasal MRSA DNA Surveillance Screen - Final Specimen Positive for MRSA by DNA Probe Complete Laboratory results reviewed by me. Medications Administered Medications (Trade) Dose Ordered Sig/Mikie Route Start Time Stop Time Status Last Admin Dose Admin Sodium Chloride 500 ml @ 999 mls/hr Q31M ONCE IV 05/21/17 13:18 05/21/17 13:48 DC 05/21/17 13:30 999 MLS/HR Piperacillin Sod/ Tazobactam Sod (Zosyn Iv) 4.5 gm ONE STAT IV 05/21/17 13:18 05/21/17 13:25 DC 05/21/17 13:30 4.5 GM Acetaminophen (Tylenol Tab) 650 mg ONE ONCE PO 05/21/17 13:30 05/21/17 13:31 DC 05/21/17 13:34 650 MG Digoxin (Digoxin IV) 125 mcg NOW STAT IV 05/21/17 13:18 05/21/17 13:25 DC 05/21/17 13:29 125 MCG Magnesium Sulfate (Magnesium Sulfate) 1 gm NOW STAT IV 05/21/17 14:00 05/21/17 14:01 DC 05/21/17 14:31 1 GM Sodium Chloride 500 ml @ 999 mls/hr Q31M STAT IV 05/21/17 14:18 05/21/17 14:48 DC 05/21/17 14:28 999 MLS/HR Vancomycin HCl (Vancomycin 1gm/ 270ml Nss) 1 gm NOW STAT IV 05/21/17 14:18 05/21/17 14:22 DC 05/21/17 14:33 1 GM Albumin Human (Albumin 25%) 12.5 gm TODAY@1445,1446 IV 05/21/17 14:45 05/21/17 14:47 DC 05/21/17 16:03 12.5 GM ECG Indication: other (heart out of rhythm) Rate (beats per minute): 122 Rhythm: atrial flutter Findings: PVC, other (no evidence for acute DE) ED Course 1314: The patient was evaluated in room B10. A complete history and physical exam was performed. 1318: Digoxin 125 mcg IV, Zosyn Iv 4.5 gm IV, Sodium Chloride 500 ml @ 999 mls/ hr IV. 1330: Tylenol Tab 650 mg PO. 1400: Magnesium Sulfate 1 gm IV. 1418: Vancomycin HCl 1 gm IV, Sodium Chloride 500 ml @ 999 mls/hr IV. 1420: [facility] the [facility] The patient will be evaluated for further management. 1421: Upon reexamination the patient is resting. I discussed results and treatment plan with the patient. He verbalizes agreement and understanding. The patient will be evaluated for further management. Medical Decision Differential diagnosis included but is not limited to: sepsis, bacteremia, pneumonia, cellulitis, DE, electrolyte imbalance, dehydration, anemia. There is a mild leukocytosis, this is consistent with infection. The patient is anemic but this is baseline for him. His platelet count is low, also documented in the past. Renal panel test shows a high creatinine consistent with his need for dialysis. There was no hepatitis. INR was over the therapeutic window for someone on Coumadin, of note, the patient is not actively bleeding. The patient appeared to be in a euthyroid state. Magnesium was low at 1.7. Digoxin level was not toxic. EKG showed a rapid atrial flutter , no acute ischemic change. Cardiac enzyme testing 1 did show a slight elevation to the troponin consistent with cardiac strain/injury. Blood cultures are pending. Urinalysis and urine culture are pending. Lactic acid level was not significantly elevated. The patient presents febrile, hypotensive and tachycardic. He was aggressively managed. Because of his need for dialysis, he received IV saline but not at the 30 mL/kg amount. He was given a 500 mL bolus and then a second 500 mL bolus. He received oral Tylenol for his fever. The patient was given IV vancomycin and IV Zosyn for antibiotic coverage. He received a dose of IV digoxin to help control the heart rate. He was given IV magnesium because of the lower magnesium value. The patient feels well. His heart rate has improved but his blood pressure remains somewhat low in the 80s to 90s systolic. This is an improvement from his initial blood pressure. The patient though is not lightheaded and states that he feels well. The patient is septic, likely from a lower extremity cellulitis. He is in a rapid A. flutter which is compounding his situation. Admission/observation is clearly warranted. He needs care in the hospital. He is being sent to the intensive care unit. I did consult the ICU attending, I talked with case management and the on-call hospitalist was consulted. Medication Reconcilliation Current Medication List: was personally reviewed by me Blood Pressure Screening Patient's blood pressure: Low blood pressure Consults Time Called: 1418 Consulting Physician: [facility]. [facility] Returned Call: 1420 Discussed the patient's case. The patient will be evaluated for further management. Impression Primary Impression: Sepsis Additional Impressions: Rapid atrial flutter Cellulitis Critical Care I have personally spent greater than 35 minutes of critical care time in the direct management of this patient. This includes bedside care, interpretation of diagnostic studies, and testing, discussion with consultants, patient, and family members, and other required patient management activities. This 35 minutes is in excess of all separately billable procedures. Scribe Attestation The scribe's documentation has been prepared under my direction and personally reviewed by me in its entirety. I confirm that the note above accurately reflects all work, treatment, procedures, and medical decision making performed by me. Departure Information Dispostion Being Evaluated By Hospitalist Referrals Tomás Rodriguez M.D. (PCP) Patient Instructions [facility] Problem Qualifiers
[2017-05-21] MEDS ORDERED: ACETAMINOPHEN 325 MG TAB PO ONE (13:30)
[2017-05-21 13:40] LABS: HEMATOCRIT 31.2 % (42-52); MEAN CELL VOLUME 88.9 fL (80-100); MEAN CORPUSCULAR HEMOGLOBIN 28.8 pg (25-34); MEAN CORPUSCULAR HGB CONC 32.4 g/dl (32-36); RED BLOOD COUNT 3.51 M/uL (4.7-6.1); WHITE BLOOD COUNT 13.69 K/uL (4.8-10.8)
[2017-05-21 13:53] LABS: MEAN PLATELET VOLUME 11.6 fL (7.4-10.4); PLATELET COUNT 75 K/uL (130-400)
--- NOTE | 2017-05-21 13:53 | DIAGNOSTIC IMAGING REPORT ---
CHEST ONE VIEW PORTABLE HISTORY: Sepsis COMPARISON: Chest 05/07/2017. FINDINGS: No pneumothorax. No pleural effusions. The heart remains mildly enlarged. Poststernotomy changes. Right jugular catheter terminates in the SVC. No focal lung consolidations to suggest pneumonia. No evidence for pulmonary edema. The right midlung zone nodule described on the prior study is not clearly identified on today's examination. IMPRESSION: Stable mild cardiomegaly. No acute process within the chest. Electronically signed by: Sergio Bray M.D. 05/21/2017 1:51 PM Dictated Date/Time: 05/21/2017 1:49 PM
[2017-05-21 13:58] LABS: BUN/CREATININE RATIO 4.7 (10-20); CALCIUM 8.9 mg/dl (8.5-10.1); CREATININE 3.9 mg/dl (0.60-1.40); MAGNESIUM 1.7 mg/dl (1.8-2.4); POTASSIUM 3.8 mmol/L (3.5-5.1)
[2017-05-21] MEDS ORDERED: MAGNESIUM SULFATE 1GM / D5W 1 GM BAG IV STA (14:00)
[2017-05-21 14:02] LABS: INR 5.2 (0.9-1.1); PARTIAL THROMBOPLASTIN RATIO 2.4; PROTHROMBIN TIME (PATIENT) 60.1 SECONDS (9.0-12.0)
[2017-05-21 14:14] LABS: BASO % 0.1 %; BASO ABS # 0.02 K/uL (0-0.2); COMPLETE YES; EOS % 0.3 %; IG% 0.7 %; LYMPH % 1.8 %; LYMPH ABS # 0.25 K/uL (1.2-3.4); MONO % 7.1 %; PLT ESTIMATE DECREASED
[2017-05-21 14:15] LABS: ALB/GLOB RATIO 0.8 (0.9-2); THYROID STIMULATING HORMONE 0.375 uIu/ml (0.300-4.500)
[2017-05-21] MEDS ORDERED: VANCOMYCIN 1GM/270ML NSS IV STA (14:18)
[2017-05-21] MEDS ORDERED: SODIUM CHLORIDE 0.9% 500ML 500 ML IV STA (14:18)
[2017-05-21] MEDS ORDERED: LACT10SO17 PO (14:22)
[2017-05-21] MEDS ORDERED: GLY/5 PO (14:22)
[2017-05-21] MEDS ORDERED: PSYL48.59 (14:22)
[2017-05-21] MEDS ORDERED: CIPR1TAB10 PO (14:22)
[2017-05-21] MEDS ORDERED: OMEG10007 PO (14:22)
[2017-05-21] MEDS ORDERED: DOCU-94 PO (14:22)
[2017-05-21] MEDS ORDERED: HYDR-4452 PO (14:22)
[2017-05-21] MEDS ORDERED: CLOP1TAB15 PO (14:22)
[2017-05-21] MEDS ORDERED: INSU1INJ2 SC (14:22)
[2017-05-21] MEDS ORDERED: INSDGI SC (14:22)
[2017-05-21] MEDS ORDERED: METO25TA3 PO (14:22)
[2017-05-21] MEDS ORDERED: LORA-741 PO (14:22)
[2017-05-21] MEDS ORDERED: GABA800T PO (14:22)
[2017-05-21] MEDS ORDERED: NTRGSL/4 UT (14:22)
[2017-05-21] MEDS ORDERED: VANCOMYCIN CONSULT ACTIVE PRN (14:45)
[2017-05-21] MEDS ORDERED: GLUCOSE 40% GEL 15 GM TUBE PO PRN (15:15)
[2017-05-21] MEDS ORDERED: GLUCOSE 10 TABS/TUBE PO PRN (15:15)
[2017-05-21] MEDS ORDERED: DEXTROSE 50% 50 ML SYR IV PRN (15:15)
[2017-05-21] MEDS ORDERED: GLUCAGON FOR INJ 1 MG VIAL SQ PRN (15:15)
[2017-05-21] MEDS ORDERED: HYDROCODONE/ACETAMOPHEN 5/325MG TAB PO PRN (16:00)
[2017-05-21] MEDS: ALBUMIN HUMAN 25% 12.5 GM/50 ML VIAL IV SCH (16:03)
[2017-05-21] MEDS ORDERED: PHYTONADIONE INJ 2.5 MG in SODIUM CHLORIDE 0.9% 50ML 50 ML IV ONE (16:15)
[2017-05-21] MEDS ORDERED: PIPERACILL/TAZOBAC CONSULT ACTIVE PRN (16:15)
--- NOTE | 2017-05-21 16:15 | Nephrology Consultation ---
Nephrology Consultation Date & Providers Date of Consultation: May 21, 2017. Primary Care Provider: Tomás Rodriguez M.D. Referring Provider: Reason for Consultation Management of hemodialysis for end-stage renal disease. History of Present Illness Rubio Is a 62-year-old gentlemen with past medical history significant for CAD s /p CABG, hypertension, diabetes, ESRD new start on dialysis, admitted to the hospital as he was referred from the dialysis unit for actual flatter with rapid ventricular rate and concern for sepsis. Nephrologic consult was requested for evaluation for need for emergency dialysis and management of volume overload. Rubio has end-stage renal disease secondary to diabetic nephropathy and type 2 cardiorenal syndrome, he was recently started on dialysis recently after hospital admission with AFib with RVR and acute kidney injury with underlying stage 4/5 chronic kidney disease. He has a right IJ tunnel dialysis catheter, on dialysis Saturday, , Saturday at [facility]. His plan was to eventuality heavy PD catheter and start on peritoneal dialysis and plan to also have a AV fistula as a backup, he has an appointment at a later this week with Dr. Gaston for PD catheter. This morning he went for his regular dialysis session, after 2 hours of treatment he was found to have elevated heart rate to 150s to 160s, he was found to be lethargic, febrile with a temperature 38.5. His tunnel dialysis catheter area was otherwise normal, nontender without any sign of infection, blood culture was drawn and he was sent to emergency room for further evaluation. In ER, he was lethargic but denied any shortness of breath or chest pain. has been hypotensive even after 2250 ml Iv bolus x 2. Chest x-ray was otherwise unremarkable without any sign of volume overload. EKG showed atrial flutter with rapid ventricular rate. Troponin was borderline elevated. Digoxin level was 1.0. His INR was elevated at 5.1. He was found to have B/L Le erythema, foul smelling discharge and superficial ulcer. He was initially given IV fluid as blood pressure was relatively soft, blood culture was drawn and started on vancomycin and Zosyn empirically. He was recently admitted to the hospital with atrial flutter with rapid ventricular rate, on discharge he was started on carvedilol 12.5 milligram twice a day and digoxin as his blood pressure was relatively soft. He was also started on Coumadin for anticoagulation. After initial discharge he was not taking his meds and on his 1st outpatient dialysis treatment daily he was found to have rapid ventricular rate, heart rate was 160s and if he was sent to the emergency room for further evaluation. he was admitted and was seen by gas welder suggested to them ROBERTO and cardioversion however he refused that. was discharged again with that carvedilol and this time he filled the prescription and he reports taking the medications. This morning before dialysis he did not take his medications. Allergies Coded Allergies: No Known Allergies (Unverified , 05/21/17) Inpatient Medications Current Inpatient Medications Medications (Trade) Dose Ordered Sig/Mikie Route Start Time Stop Time Status Last Admin Dose Admin Vancomycin HCl 1000 mg/Sodium Chloride 270 ml @ 125 mls/hr UD PRN IV 05/21/17 14:40 05/31/17 14:39 UNV Vancomycin HCl (Consult) 1 ea UD PRN N/A 05/21/17 14:45 06/20/17 14:44 Family History No pertinent family history Social History Smoking Status: Former Smoker Drug Use: none Marital Status: Housing Status: lives with family Occupation: disabled Review of Systems A complete review of systems was performed. Pertinent positives are noted above. All other systems are negative. Physical Exam Date Time Temp Pulse Resp B/P (MAP) Pulse Ox O2 Delivery O2 Flow Rate FiO2 05/21/17 14:27 103 20 74/52 96 Nasal Cannula 4.0 05/21/17 14:01 104 19 80/57 95 Nasal Cannula 4.0 05/21/17 13:48 103 22 95/53 95 Nasal Cannula 4.0 05/21/17 13:32 116 05/21/17 13:29 115 05/21/17 13:23 99 Nasal Cannula 6.0 05/21/17 13:18 93 Nasal Cannula 6.0 05/21/17 13:18 93 Nasal Cannula 6.0 05/21/17 13:00 37.8 139 24 68/48 88 Room Air GENERAL: middle aged male, AAA x 3, lathergic, in mild to moderate distress, confused and agitated at times. HEENT: Atraumatic, normocephalic. NECK: Supple, no JVD, no carotid bruit appreciated. Right IJ tunnel dialysis, catheter area nontender, no it erythema or purulent discharge ENT: No sinus tenderness MOUTH and THROAT: Moist oral mucosa, no oral ulcer or pharyngeal erythema RESPIRATORY: Normal breathing efforts, no accessory muscle use, clear to auscultation bilaterally, no wheezes or rales. CARDIOVASCULAR: S1, S2 normal, rate rhythm regular. ABDOMEN: Soft, nontender, positive bowel sound. MUSCULOSKELETAL: No CVA tenderness. No joint swelling, erythema or tenderness. Normal range of motion. SKIN: No skin rash EXTREMITY: trace B/L lower extremity edema, erythema, foul smelling discharge and superficial ulcer NEURO: No gross focal neurological deficit, speech fluent. PSYCHIATRY: Normal mood and judgment Laboratory Results Last 24 Hours Test 05/21/17 13:16 05/21/17 13:34 White Blood Count 13.69 K/uL Red Blood Count 3.51 M/uL Hemoglobin 10.1 g/dL Hematocrit 31.2 % Mean Corpuscular Volume 88.9 fL Mean Corpuscular Hemoglobin 28.8 pg Mean Corpuscular Hemoglobin Concent 32.4 g/dl Platelet Count 75 K/uL Mean Platelet Volume 11.6 fL Neutrophils (%) (Auto) 90.0 % Lymphocytes (%) (Auto) 1.8 % Monocytes (%) (Auto) 7.1 % Eosinophils (%) (Auto) 0.3 % Basophils (%) (Auto) 0.1 % Neutrophils # (Auto) 12.31 K/uL Lymphocytes # (Auto) 0.25 K/uL Monocytes # (Auto) 0.97 K/uL Eosinophils # (Auto) 0.04 K/uL Basophils # (Auto) 0.02 K/uL RDW Standard Deviation 49.8 fL RDW Coefficient of Variation 15.6 % Immature Granulocyte % (Auto) 0.7 % Immature Granulocyte # (Auto) 0.10 K/uL Platelet Estimate DECREASED Red Blood Cell Morphology Unremarkable Prothrombin Time 60.1 SECONDS Prothromb Time International Ratio 5.2 Activated Partial Thromboplast Time 61.6 SECONDS Partial Thromboplastin Ratio 2.4 Sodium Level 137 mmol/L Potassium Level 3.8 mmol/L Chloride Level 97 mmol/L Carbon Dioxide Level 32 mmol/L Anion Gap 8.0 mmol/L Blood Urea Nitrogen 18 mg/dl Creatinine 3.90 mg/dl Est Creatinine Clear Calc Drug Dose 23.5 ml/min Estimated GFR () 18.1 Estimated GFR (Non- 15.6 BUN/Creatinine Ratio 4.7 Random Glucose 207 mg/dl Calcium Level 8.9 mg/dl Magnesium Level 1.7 mg/dl Total Bilirubin 0.9 mg/dl Aspartate Amino Transf (AST/SGOT) 12 U/L Alanine Aminotransferase (ALT/SGPT) 20 U/L Alkaline Phosphatase 180 U/L Troponin I 0.064 ng/ml Total Protein 6.6 gm/dl Albumin 3.0 gm/dl Globulin 3.6 gm/dl Albumin/Globulin Ratio 0.8 Thyroid Stimulating Hormone (TSH) 0.375 uIu/ml Digoxin Level 1.0 ng/ml Bedside Lactic Acid Venous 1.89 mmol/L Otis Bergeron is a 62-year-old gentlemen with ESRD secondary to diabetic nephropathy, on hemodialysis Saturday, , Saturday via right IJ tunnel dialysis catheter. Has hypertension, diabetes, coronary artery disease, CHF with right- sided heart failure. Was sent to the emergency room from dialysis unit as he was found to have rapid heart rate, lethargic and was febrile after 2 hours of dialysis treatment. His tunnel dialysis catheter area was otherwise normal, nontender without any sign of infection, blood culture was drawn and he was sent to emergency room for further evaluation. Has was found to hae B/L LE cellulitis He has atrial flutter with rapid ventricular rate, recently had admission at [facility] twice, he was discharged on carvedilol 12.5 milligram twice a day , digoxin 125 microgram daily and Coumadin. Family Centered Specialist recommended ROBERTO and cardioversion because of for recurrent admission and noncompliance with medication however he refused. On admission his chest x-ray was unremarkable, EKG showed a flutter with RVR, digoxin level was 1.0 and INR was 5.1. Recommendations --although he had 2 hours dialysis, currently his volume status and electrolyte acceptable -- may need pressor as he is at risk of volume overload. --left UE nephrology precaution for future vascular access -- TDC area without any sign of infection however still there is risk for bacteremia -- Most likely source of infection is cellulitis of lE and ? bacteremia --agree with continuing empiric antibiotic pending culture -- will keep the tunnel catheter in place for now unless there is clear evidence of bacteremia from culture and in that case catheter will have to be taken out -- hold off on PD catheter for now --continue on Nephrocaps, phosphate binder and calcitriol -- MARCIO [id number] units with next hemodialysis treatment Thank you for allowing me to participate in your patient's care. It was a pleasure to see Rubio This chart was completed utilizing [employer] Speech and voice recognition software. Grammatical errors, random word insertions, pronoun errors and incomplete sentences are occasional consequences of this system. Any questions or concerns about the content, text or information contained within the body of this dictation should be addressed directly to the physician for clarification.
[2017-05-21] MEDS ORDERED: NOREPINEPHRINE BIT INJ 8 MG in DEXTROSE 5% 500ML 500 ML IV PRN (16:24)
--- NOTE | 2017-05-21 17:14 | Critical Care Consultation ---
Critical Care Consultation Date of Consultation: May 21, 2017. Attending Physician: Mohit aRmey M.D. Reason for Consultation: Hypotension History of Present Illness 62 year old male with a PMH of Atrial flutter, CHF, ESRD, DM and CAD s/p CABG who was admitted to the hospital as he was referred from the dialysis unit for atrial flutter with rapid ventricular response. There was also a concern for sepsis as he had the chills at the dialysis unit and he has weeping lower extremity wounds that have become increasingly erythematous over the last couple of weeks. According to the patient he missed his morning dose of carvedilol and did not take it this morning. Upon arrival to the ED the patients HR was 139, his temp was 37.8 and his blood pressure was 68/48. In the ED the patient was given .125mcg of digoxin IV to help control his heart rate and he was started on broad spectrum antibiotics with zosyn and vancomycin. Patient was also given two 500ml bolus' of NS however his blood pressure remained in the 70's systolic and 50's diastolic. It was decided that the patient would need to go to the ICU for vasopressor medication in raise his blood pressure. Upon talking to the patient with regards to treatment he initially refused all treatment and said he no longer wanted to be "poked". He said he wanted to be transferred to [place] and that he wanted to talk to his family before any further intervention would take place. After much debate and further discussion with his family and the docket specialist the patient agreed to be admitted to the ICU in order for a central line to be placed in order to administer vasopressors. Past Medical/Surgical History Atrial Flutter CHF ESRD DM CAD s/p CABG x5 HTN HLD Family History No pertinent family history Social History Smoking Status: Former Smoker (20 pack year) Alcohol Use: none Drug Use: none Marital Status: Housing Status: lives with family Occupation Status: disabled Allergies Coded Allergies: No Known Allergies (Unverified , 05/21/17) Home Medications Scheduled Aspirin (Aspirin EC Low Dose), 81 MG PO QAM Carvedilol (Carvedilol), 12.5 MG PO BID Ciprofloxacin Hcl (Cipro), 500 MG PO HS Clopidogrel (Plavix), 75 MG PO DAILY Digoxin (Digoxin), 0.125 MG PO Q1600 Docusate Sodium (Colace), 100 MG PO DAILY Fish Oil ([place]-3), 1 CAP PO DAILY Furosemide (Lasix), 40 MG PO DAILY Gabapentin (Neurontin), 800 MG PO TID Glyburide (Diabeta), 10 MG PO DAILY Insulin Aspart (Novolog Penfill), 8 UNITS SC TIDM Insulin Glargine (Lantus), 20 UNIT SC QPM Lactulose (Chronulac), 15 ML PO QID Metoprolol Succ (Toprol Xl) (Toprol-Xl), 25 MG PO DAILY Nitroglycerin (Nitrostat), 0.4 MG UT PRN Warfarin Sod (Jantoven), 5 MG PO QAM Scheduled PRN Hydrocodone-Acetaminophen (Hydrocodone Bitartrate/Ac), 5 MG PO Q4H PRN for Pain Lorazepam (Ativan), 0.5 MG PO Q6H PRN for Anxiety Miscellaneous Medications Psyllium (Metamucil) Current Inpatient Medications Current Inpatient Medications Medications (Trade) Dose Ordered Sig/Mikie Route Start Time Stop Time Status Last Admin Dose Admin Vancomycin HCl 750 mg/Sodium Chloride 265 ml @ 125 mls/hr TODAY@1800 ONCE IV 05/21/17 18:00 05/21/17 20:07 Vancomycin HCl (Consult) 1 ea UD PRN N/A 05/21/17 14:45 06/20/17 14:44 Acetaminophen (Tylenol Tab) 650 mg Q4H PRN PO 05/21/17 15:00 06/20/17 14:59 Piperacillin Sod/ Tazobactam Sod 3.375 gm/Dextrose 115 ml @ 28.75 mls/ hr Q12@0000,1200 IV 05/22/17 00:00 06/01/17 00:00 UNV Aspirin (Ecotrin Tab) 81 mg QAM PO 05/22/17 09:00 06/21/17 08:59 Clopidogrel Bisulfate (plAVix TAB) 75 mg DAILY PO 05/22/17 09:00 06/21/17 08:59 Digoxin (Lanoxin Tab) 0.125 mg DAILY PO 05/22/17 09:00 06/21/17 08:59 Docusate Sodium (coLACE CAP) 100 mg DAILY PO 05/22/17 09:00 06/21/17 08:59 Gabapentin (Neurontin Tab) 800 mg TID PO 05/21/17 21:00 06/20/17 20:59 Insulin Glargine (Lantus Solostar Pen) 20 units QPM SC 05/21/17 21:00 06/20/17 20:59 Lactulose (Chronulac Syrup) 10 gm QID PO 05/21/17 17:00 06/20/17 16:59 Lorazepam (Ativan Tab) 0.5 mg Q6H PRN PO 05/21/17 15:15 06/20/17 15:14 Acetaminophen/ Hydrocodone Bitart ([place] 5/325 Tab) 1 tab Q4H PRN PO 05/21/17 16:00 06/04/17 15:59 Insulin Aspart (novoLOG ASPART) SLIDING SCALE If C... ACHS SC 05/21/17 16:00 06/20/17 15:59 Glucose (Glucose 40% Gel) UD PRN PO 05/21/17 15:15 06/20/17 15:14 Glucose (Glucose Chew Tab) 1 tabs UD PRN PO 05/21/17 15:15 06/20/17 15:14 Dextrose (Dextrose 50% 50ML Syringe) 50 ml UD PRN IV 05/21/17 15:15 06/20/17 15:14 Glucagon (Glucagon Inj) 1 mg UD PRN SQ 05/21/17 15:15 06/20/17 15:14 Phytonadione 2.5 mg/Sodium Chloride 50.25 ml @ 100.5 mls/ hr NOW ONCE IV 05/21/17 16:15 05/21/17 16:44 Piperacillin Sod/ Tazobactam Sod (Consult) 1 ea UD PRN N/A 05/21/17 16:15 06/20/17 16:14 Norepinephrine Bitartrate 8 mg/ Dextrose 508 ml @ 0 mls/hr Q0M PRN IV 05/21/17 16:24 06/20/17 16:23 Review of Systems Constitutional: + fever, + chills, + fatigue Eyes: + worsening of vision, + diplopia Respiratory: + cough, + dyspnea on exertion, No dyspnea at rest, No hemoptysis Cardiovascular: No chest pain, No edema, No palpitations Abdomen: No pain, No nausea, No vomiting, No diarrhea, No constipation Musculoskeletal: + calf pain Hematologic / Lymphatic: No abnormal bleeding/bruising Physical Exam Date Time Temp Pulse Resp B/P (MAP) Pulse Ox O2 Delivery O2 Flow Rate FiO2 05/21/17 16:16 92 18 98 05/21/17 16:14 36.9 05/21/17 16:12 86 22 68/53 100 Room Air 05/21/17 15:10 106 28 76/49 93 Nasal Cannula 05/21/17 14:27 103 20 74/52 96 Nasal Cannula 4.0 05/21/17 14:01 104 19 80/57 95 Nasal Cannula 4.0 05/21/17 13:48 103 22 95/53 95 Nasal Cannula 4.0 05/21/17 13:32 116 05/21/17 13:29 115 05/21/17 13:23 99 Nasal Cannula 6.0 05/21/17 13:18 93 Nasal Cannula 6.0 05/21/17 13:18 93 Nasal Cannula 6.0 05/21/17 13:00 37.8 139 24 68/48 88 Room Air General Appearance: mild distress, other (ill appearing) Head: normocephalic Eyes: PERRLA, no discharge, EOMI ENT: normal nasal exam, normal sinus exam, poor dentition Neck: no tenderness, trachea midline, supple, no thyromegaly, no lymphadenopathy Respiratory: breath sounds normal, clear to auscultation Cardiovasular: irregular rate, abnormal rhythm, abnormal pulses (weak peripheral pulses), other (distant heart sounds, permacath inferior to right clavicle) Abdomen: non tender, normal bowel sounds, no rebound, no masses, no guarding Back: normal inspection, normal range of motion Lower Extremities: edema, other (chronic venous changes with wheeping of skin and diffuse ulceration, spreading erythema around wounds ) Neuro: alert, oriented x 3, normal motor exam, normal speech Laboratory Results Last 24 Hours Test 05/21/17 13:16 05/21/17 13:34 05/21/17 16:18 White Blood Count 13.69 K/uL Red Blood Count 3.51 M/uL Hemoglobin 10.1 g/dL Hematocrit 31.2 % Mean Corpuscular Volume 88.9 fL Mean Corpuscular Hemoglobin 28.8 pg Mean Corpuscular Hemoglobin Concent 32.4 g/dl Platelet Count 75 K/uL Mean Platelet Volume 11.6 fL Neutrophils (%) (Auto) 90.0 % Lymphocytes (%) (Auto) 1.8 % Monocytes (%) (Auto) 7.1 % Eosinophils (%) (Auto) 0.3 % Basophils (%) (Auto) 0.1 % Neutrophils # (Auto) 12.31 K/uL Lymphocytes # (Auto) 0.25 K/uL Monocytes # (Auto) 0.97 K/uL Eosinophils # (Auto) 0.04 K/uL Basophils # (Auto) 0.02 K/uL RDW Standard Deviation 49.8 fL RDW Coefficient of Variation 15.6 % Immature Granulocyte % (Auto) 0.7 % Immature Granulocyte # (Auto) 0.10 K/uL Platelet Estimate DECREASED Red Blood Cell Morphology Unremarkable Prothrombin Time 60.1 SECONDS Prothromb Time International Ratio 5.2 Activated Partial Thromboplast Time 61.6 SECONDS Partial Thromboplastin Ratio 2.4 Sodium Level 137 mmol/L Potassium Level 3.8 mmol/L Chloride Level 97 mmol/L Carbon Dioxide Level 32 mmol/L Anion Gap 8.0 mmol/L Blood Urea Nitrogen 18 mg/dl Creatinine 3.90 mg/dl Est Creatinine Clear Calc Drug Dose 23.5 ml/min Estimated GFR () 18.1 Estimated GFR (Non- 15.6 BUN/Creatinine Ratio 4.7 Random Glucose 207 mg/dl Calcium Level 8.9 mg/dl Magnesium Level 1.7 mg/dl Total Bilirubin 0.9 mg/dl Aspartate Amino Transf (AST/SGOT) 12 U/L Alanine Aminotransferase (ALT/SGPT) 20 U/L Alkaline Phosphatase 180 U/L Troponin I 0.064 ng/ml Total Protein 6.6 gm/dl Albumin 3.0 gm/dl Globulin 3.6 gm/dl Albumin/Globulin Ratio 0.8 Thyroid Stimulating Hormone (TSH) 0.375 uIu/ml Digoxin Level 1.0 ng/ml Bedside Lactic Acid Venous 1.89 mmol/L Assessment & Plan 62 year old male with ESRD, DM, Aflutter, CHF and CAD s/p CABG who was admitted to the ICU due to sepsis leading to persistent hypotension and the need for vasopressor support. ID - Patients meets SIRS criteria - temp of 37.8 in the ED and WCC of 13.7 - Blood cultures pending, patient unable to produce urine and UA still pending - On Vancomycin and Zosyn - POC venous lactic acid 1.89, ABG pending - Hx of MRSA, contact precautions - Wound care consult - Likely source lower extremities vs urinary source. UA was not collected in the ED; however patient is on cipro but is unsure when started or how long he has been on it and denies any urinary symptoms Cardiac - Atrial flutter - Warfarin 5mg daily (held), INR 5.2, given 2.5 vit K, continue to follow INR, - Received .125mcg of Dig IV (will check Dig level), Takes .125 dig at home. Carvedilol and Toprol XL held for now as blood pressure low - CAD - hx of x5 CABG for ND 4 years ago in [place]. Continue aspirin and plavix. troponin of .064 and likely demand ischaemia, will repeat this evening - CHD - echo 05/09 showed EF of 20-25% with severe global hypokinesis and severe left ventricular dysfunction/severe right ventricular dysfunction. Hold lasix as blood pressure low. monitor I/O's - Hypotension - 2 500ml bolus' given. will start central line to administer levophed 0.1 mcg and increase at rate of .02 to MAP of 65 - Hyperlipidemia- statin? Renal - ESRD had a permacath placed 3 weeks ago. Follow[address] with Dr. Max. Dr Max wants to keep permacath in place for now and does not think port is source of infection. - Goes to dialysis , and Saturday - Nephrology consulted - Electrolytes wnl and creatinine 3.9 - Lactulose daily Endo - Last HbA1c 8.9 on 05/13/17 - Insulin glargine 20 units QPM and insulin sliding scale with carb counting - glyburide held (due to ESRD) and at home received aspart 8units TID - Hx of peripheral neuropathy, continue gabapentin TID GI - on colace once daily - continue regular renal and diabetic Neuro - CAM - - Ativan 0.5 mg PRN for anxiety - [place] for pain Dispo - PT/OT ordered - FULL CODE Resident Physician Supervision Note: Dr. Shen was resident physician during care of patient. I separately evaluated patient and did history and exam. I discussed the case with the resident and generally agree with the findings and plan. Patient critically ill due to hypotension, presumptive sepsis. Source is likely bilateral cellulitis, this would be a complicated skin soft tissue infection however cannot exclude associated line infection. Considerable difficulty in placing advanced vascular access, unable to thread the wire in bilateral internal jugular veins, supratherapeutic on his INR contraindicated for placement of subclavian vein therefore will proceed with femoral cannulation I have personally spent 45 minutes of critical care time in the direct management of this patient. This is a life/limb threatening event. This includes time spent evaluating patient, direct bedside care, chart review, placing orders, interpretation of diagnostic studies, discussion with consultants, patient, and family members, as well as other required patient management activities. This time is exclusive of all separately billable procedures, and teaching time and separate from and in addition to any other critical care service time. Documented By: Juventino Berkowitz DO
[2017-05-21] MEDS: LACTULOSE SYRUP 10 GM/15 ML BTL 473 ML PO SCH ×2 (17:21→21:26)
[2017-05-21] MEDS: INSULIN ASPART 100 UNITS/ML 3 ML PEN SC SCH ×2 (17:25→21:49)
[2017-05-21] MEDS ORDERED: VANCOMYCIN INJ 750 MG in SODIUM CHLORIDE 0.9% 250ML 250 ML IV ONE (18:00)
--- NOTE | 2017-05-21 20:10 | Procedure Note ---
Procedure Note Procedure Date May 21, 2017. Central Line Procedure time out: side/site verified, patient ID confirmed, sterile procedure used Consent obtained: written Time of procedure: 19:30 Performed by: physician fresh work inspector (Carlo Ronquillo) Indications: poor venous access, central drug admin. Contraindications: coagulopathy Prep: chlorhexadine prep, sterile drape, sterile procedures used Anesthesia: local injection, lidocaine 1% without epi Volume anesthetic (ml's): 3 Central line lumen: triple Central line location: internal jugular (L) Additional details: ultrasound guidance CXR: other (unable to pass guidewire beyond 10 cm, likely due to stenosis. procedure aborted) Complications: none Patient tolerated procedure: well Post-procedure vital signs: reviewed and stable Comments: Critical Care Medicine Point of Care Bedside Ultrasound Procedure: Procedural Ultrasound Procedure Date: 05/21/17 Indication: central venous access Attending: Mary Berkowitz DO Resident/Physician Public Relations Manager: Carlo Ronquillo Artery AND Vein visualized: y Compressible Vein: y Guidewire or Short Catheter seen in vein prior to dilation: NA Line confirmed in Vein with ultrasound: NA Lung Sliding on side of attempt (if applicable): Y If no lung sliding or not obtained has CXR been ordered: Y Impression: procedure aborted due to inability to pass guidewire. Plan: attempt R IJ CVL Images obtained are saved for permanent record
--- NOTE | 2017-05-21 20:35 | Procedure Note ---
Procedure Note Procedure Date May 21, 2017. Central Line Procedure time out: side/site verified, patient ID confirmed, sterile procedure used Consent obtained: written Time of procedure: 20:00 Performed by: physician blow torch operator (Carlo Ronquillo) Indications: poor venous access, central drug admin. Contraindications: coagulopathy Prep: chlorhexadine prep, sterile drape, sterile procedures used Anesthesia: local injection, lidocaine 1% without epi Volume anesthetic (ml's): 3 Central line location: internal jugular (R) Additional details: ultrasound guidance CXR: other (inability to pass guidewire beyond 12 cm. procedure aborted.) Complications: none Patient tolerated procedure: well Post-procedure vital signs: reviewed and stable Comments: Critical Care Medicine Point of Care Bedside Ultrasound Procedure: Procedural Ultrasound Procedure Date: 05/21/2017 Indication: Right internal jugular central venous access Attending: Mary Berkowitz DO Resident/Physician Foundry Tender: Carlo Ronquillo Artery AND Vein visualized: y Compressible Vein: Y Guidewire or Short Catheter seen in vein prior to dilation: N Line confirmed in Vein with ultrasound: N Lung Sliding on side of attempt (if applicable): Y If no lung sliding or not obtained has CXR been ordered: Y Impression: Inability to pass guidewire beyond 12 cm, procedure aborted, this is the second procedure on the patient's other side today Plan: Proceed with femoral central venous access Images obtained are saved for permanent record
--- NOTE | 2017-05-21 20:36 | History and Physical ---
History & Physical Date & Time of Service: May 21, 2017 at 20:18 Chief Complaint: Cellulitis, Sepsis Primary Care Physician: Tomás Rodriguez M.D. History of Present Illness Source: patient, hospital records The patient is a 62-year-old male who was referred to the emergency department after being at dialysis where he developed hypotension, increased temperature and increased heart rate. Upon arrival in the emergency department his systolic blood pressure was in the low 60s, and heart rate was up in the 140s and was in atrial flutter with variable block. The patient was given 2 boluses of 500 ML's normal saline, albumin 25 g IV, digoxin 0.125 mg IV, and referral was made to the ICU. The patient himself overall has no complaints, but was noted to have significant bilateral lower extremity cellulitis. Past Medical/Surgical History Medical Problems: (1) Afib Status: Chronic (2) CHF (congestive heart failure) Status: Resolved (3) CKD (chronic kidney disease) stage 4, GFR 15-29 ml/min Status: Chronic (4) Diabetic polyneuropathy Status: Chronic Family History No pertinent family history Social History Smoking Status: Former Smoker Smokeless Tobacco Use: No Alcohol Use: none Drug Use: none Marital Status: Housing status: lives with family Occupational Status: disabled Immunizations History of Influenza Vaccine: Unknown History of Tetanus Vaccine?: Unknown History of Pneumococcal: Unknown History of Hepatitis B Vaccine: Unknown Multi-Drug Resistant Organisms History of MDRO: Yes Type of MDRO: MRSA Allergies Coded Allergies: No Known Allergies (Unverified , 05/21/17) Home Medications Scheduled Aspirin (Aspirin EC Low Dose), 81 MG PO QAM Carvedilol (Carvedilol), 12.5 MG PO BID Ciprofloxacin Hcl (Cipro), 500 MG PO HS Clopidogrel (Plavix), 75 MG PO DAILY Digoxin (Digoxin), 0.125 MG PO Q1600 Docusate Sodium (Colace), 100 MG PO DAILY Fish Oil (Wasta-3), 1 CAP PO DAILY Furosemide (Lasix), 40 MG PO DAILY Gabapentin (Neurontin), 800 MG PO TID Glyburide (Diabeta), 10 MG PO DAILY Insulin Aspart (Novolog Penfill), 8 UNITS SC TIDM Insulin Glargine (Lantus), 20 UNIT SC QPM Lactulose (Chronulac), 15 ML PO QID Metoprolol Succ (Toprol Xl) (Toprol-Xl), 25 MG PO DAILY Nitroglycerin (Nitrostat), 0.4 MG UT PRN Warfarin Sod (Jantoven), 5 MG PO QAM Scheduled PRN Hydrocodone-Acetaminophen (Hydrocodone Bitartrate/Ac), 5 MG PO Q4H PRN for Pain Lorazepam (Ativan), 0.5 MG PO Q6H PRN for Anxiety Miscellaneous Medications Psyllium (Metamucil) Review of Systems The patient denies chest pain, palpitations, shortness of breath, cough, lower extremity swelling, vision change, hearing change, sore throat, fevers, chills, sweats, weight change, fatigue, nausea, vomiting, diarrhea or constipation, abdominal pain, pelvic pain, blood in urine or stool, dysuria, urinary frequency or urgency, lightheadedness, dizziness, headache, memory loss, abnormal bruising or bleeding, imbalance, focal weakness, numbness or tingling in arms or legs, generalized arthralgias or myalgias, back or neck pain, night sweats. The review of systems is otherwise negative other than for that already noted above, and at least 10 systems have been reviewed. Physical Exam Vital Signs Date Time Temp Pulse Resp B/P (MAP) Pulse Ox O2 Delivery O2 Flow Rate FiO2 05/21/17 18:01 80 16 81/51 (61) 99 Nasal Cannula 3.0 05/21/17 17:46 36.7 73 18 82/52 97 Nasal Cannula 3.0 05/21/17 17:32 86 17 82/52 (62) 05/21/17 17:16 84 18 60/46 (51) 85 Nasal Cannula 2.0 05/21/17 17:01 87 17 78/56 (63) 92 Nasal Cannula 3.0 05/21/17 16:16 92 18 98 05/21/17 16:14 36.9 05/21/17 16:12 86 22 68/53 100 Room Air 05/21/17 15:10 106 28 76/49 93 Nasal Cannula 05/21/17 14:27 103 20 74/52 96 Nasal Cannula 4.0 05/21/17 14:01 104 19 80/57 95 Nasal Cannula 4.0 05/21/17 13:48 103 22 95/53 95 Nasal Cannula 4.0 05/21/17 13:32 116 05/21/17 13:29 115 05/21/17 13:23 99 Nasal Cannula 6.0 05/21/17 13:18 93 Nasal Cannula 6.0 05/21/17 13:18 93 Nasal Cannula 6.0 05/21/17 13:00 37.8 139 24 68/48 88 Room Air The patient is awake, alert and oriented 3, normocephalic and atraumatic, lying in bed and in no acute distress. HEENT--PERRL, EOMI, mucous membranes and oropharynx dry. Neck--supple, no JVD or bruits, thyroid normal, trachea midline, no adenopathy. Heart--normal S1 and S2, no extra beats, no murmurs, rubs or gallops. Lungs--clear bilaterally with good air movement, no respiratory distress, no accessory muscle use. Abdomen--normal bowel sounds and soft, nontender and nondistended, no hernias or masses, no organomegaly. Extremities--no cyanosis, clubbing. There is bilateral pretibial 1+ pitting Edema. There are good distal pulses b/l. Dermatologic--there is bilateral erythema, warmth and swelling, with drainage bilaterally with surface ulcerations. Neurologic--cranial nerves II through XII grossly intact. Rheumatologic--no reproducible joint pain. Psychiatric--normal affect. Diagnostics Laboratory Results Results Past 24 Hours Test 05/21/17 13:16 05/21/17 13:34 05/21/17 16:18 05/21/17 17:12 Range/Units White Blood Count 13.69 4.8-10.8 K/uL Red Blood Count 3.51 4.7-6.1 M/uL Hemoglobin 10.1 14.0-18.0 g/dL Hematocrit 31.2 42-52 % Mean Corpuscular Volume 88.9 80-100 fL Mean Corpuscular Hemoglobin 28.8 25-34 pg Mean Corpuscular Hemoglobin Concent 32.4 32-36 g/dl Platelet Count 75 130-400 K/uL Mean Platelet Volume 11.6 7.4-10.4 fL Neutrophils (%) (Auto) 90.0 % Lymphocytes (%) (Auto) 1.8 % Monocytes (%) (Auto) 7.1 % Eosinophils (%) (Auto) 0.3 % Basophils (%) (Auto) 0.1 % Neutrophils # (Auto) 12.31 1.4-6.5 K/uL Lymphocytes # (Auto) 0.25 1.2-3.4 K/uL Monocytes # (Auto) 0.97 0.11-0.59 K/uL Eosinophils # (Auto) 0.04 0-0.5 K/uL Basophils # (Auto) 0.02 0-0.2 K/uL RDW Standard Deviation 49.8 36.4-46.3 fL RDW Coefficient of Variation 15.6 11.5-14.5 % Immature Granulocyte % (Auto) 0.7 % Immature Granulocyte # (Auto) 0.10 0.00-0.02 K/uL Platelet Estimate DECREASED Red Blood Cell Morphology Unremarkable Prothrombin Time 60.1 9.0-12.0 SECONDS Prothromb Time International Ratio 5.2 0.9-1.1 Activated Partial Thromboplast Time 61.6 21.0-31.0 SECONDS Partial Thromboplastin Ratio 2.4 Sodium Level 137 136-145 mmol/L Potassium Level 3.8 3.5-5.1 mmol/L Chloride Level 97 98-107 mmol/L Carbon Dioxide Level 32 21-32 mmol/L Anion Gap 8.0 3-11 mmol/L Blood Urea Nitrogen 18 7-18 mg/dl Creatinine 3.90 0.60-1.40 mg/dl Est Creatinine Clear Calc Drug Dose 23.5 ml/min Estimated GFR () 18.1 Estimated GFR (Non- 15.6 BUN/Creatinine Ratio 4.7 10-20 Random Glucose 207 70-99 mg/dl Calcium Level 8.9 8.5-10.1 mg/dl Magnesium Level 1.7 1.8-2.4 mg/dl Total Bilirubin 0.9 0.2-1 mg/dl Aspartate Amino Transf (AST/SGOT) 12 15-37 U/L Alanine Aminotransferase (ALT/SGPT) 20 12-78 U/L Alkaline Phosphatase 180 45-117 U/L Troponin I 0.064 0-0.045 ng/ml Total Protein 6.6 6.4-8.2 gm/dl Albumin 3.0 3.4-5.0 gm/dl Globulin 3.6 2.5-4.0 gm/dl Albumin/Globulin Ratio 0.8 0.9-2 Thyroid Stimulating Hormone (TSH) 0.375 0.300-4.500 uIu/ml Digoxin Level 1.0 0.8-2.0 ng/ml Bedside Lactic Acid Venous 1.89 0.90-1.70 mmol/L Lactic Acid Level 2.1 0.4-2.0 mmol/L Bedside Glucose 213 70-99 mg/dl Microbiology Results 05/21/17 Blood Culture, Received Pending 05/21/17 Blood Culture, Received Pending 05/21/17 MRSA DNA Surveillance Screen - Final, Complete Specimen Positive for MRSA by DNA Probe Diagnostic Radiology Patient Name: RUBINA SALAZAR Unit Number: [id number] Dictated: 05/21/171348 Transcribed: 05/21/171348 [employer] Printed Date/Time: [~ rep prt dt]/[~ rep prt tm] [~ rep ct labl] - [~ rep ct ivnm] [facility] [place] [address] Dictated: 05/21/171348 Transcribed: 05/21/171348 [employer] Printed Date/Time: [~ rep prt dt]/[~ rep prt tm] [~ rep ct labl] - [~ rep ct ivnm] [~ rep ct add3]] CHEST ONE VIEW PORTABLE HISTORY: Sepsis COMPARISON: Chest 05/07/2017. FINDINGS: No pneumothorax. No pleural effusions. The heart remains mildly enlarged. Poststernotomy changes. Right jugular catheter terminates in the SVC. No focal lung consolidations to suggest pneumonia. No evidence for pulmonary edema. The right midlung zone nodule described on the prior study is not clearly identified on today's examination. IMPRESSION: Stable mild cardiomegaly. No acute process within the chest. Electronically signed by: Sergio Bray M.D. 05/21/2017 1:51 PM Dictated Date/Time: 05/21/2017 1:49 PM The status of this report is Signed. Draft = Not yet reviewed or approved by Radiologist. Signed = Reviewed and approved by Radiologist. <AttendingPhy></AttendingPhy> <FamilyPhy>Tomás Rodriguez M.D.</FamilyPhy> < PrimaryPhy>Tomás Rodriguez M.D.</PrimaryPhy> <UnitNumber>[id number]</UnitNumber> < VisitNumber>[id number]</VisitNumber> <PatientName>RUBINA SALAZAR</ PatientName> <DateOfBirth>1955</DateOfBirth> <Location>C.EDB</Location> < ServiceDate>05/21/17</ServiceDate> <MNE>ESINDI</MNE> <OrderingPhy>Tomás Peace M.D.</OrderingPhy> <OrderingPhyMNE>f rep ord dr chaudhari</OrderingPhyMNE> < DictatingPhyMNE>f rep dict dr chaudhari</DictatingPhyMNE> <CCListMNE>f rep ct fara</ CCListMNE> <AdmittingPhyMNE>f pt admit dr chaudhari</AdmittingPhyMNE> <AttendingPhyMNE >f pt attend dr chaudhari</AttendingPhyMNE> <ConsultingPhyMNE>f pt consult dr chaudhari</ConsultingPhyMNE> <FamilyPhyMNE>f pt fam dr chaudhari</FamilyPhyMNE> <OtherPhyMNE>f pt other dr chaudhari</OtherPhyMNE> < PrimaryPhyMNE>f pt prim care dr chaudhari</PrimaryPhyMNE> <ReferringPhyMNE>f pt referring dr chaudhari</ReferringPhyMNE> EKG EKG shows atrial flutter with variable block at 122 bpm, nonspecific ST-T changes. Impression Assessment and Plan Sepsis/bilateral lower extremity cellulitis-- Admitted to the ICU. Placed on vancomycin IV and Zosyn IV. Continue with normal saline fluid boluses and albumin IV as needed. Remainder of care per ICU team. Atrial flutter with variable block-- Has received digoxin 0.125 mg IV in the ED, with level I.0 with somewhat improved rate control. We'll leave additional treatment to the ICU team. Continue aspirin 81 mg daily, clopidogrel 75 mg by mouth daily, digoxin 0.125 mg by mouth daily. Hold carvedilol 12.5 mg by mouth twice a day, furosemide 40 mg by mouth daily and metoprolol succinate 25 mg by mouth daily. INR supratherapeutic at 5.2. Will hold warfarin, and give low-dose reversal of 2.5 mg vitamin K IV. Diabetes mellitus-- Continue Lantus 20 units subcutaneous every evening, and place on Accu-Cheks before meals and at bedtime with NovoLog coverage per scale. Hold glyburide 10 mg by mouth daily. GPN--continue gabapentin 800 mg by mouth 3 times a day. Level of Care Critical Care Advanced Directives Existing Advance Directive: No Existing Living Will: No Existing Power of Manager Sales And Marketing: No Resuscitation Status FULL RESUSCITATION VTE Prophylaxis VTE Risk Assessment Done? Y/N: Yes Risk Level: Moderate Given or contraindicated: Enoxaparin (Lovenox)SQ Note Total Time: Critical Care 30 - 74 minutes
[2017-05-21] MEDS: PHENYLEPHRINE HCL INJ 20 MG in DEXTROSE 5% 500ML 500 ML IV PRN (20:42)
--- NOTE | 2017-05-21 21:14 | Procedure Note ---
Procedure Note Procedure Date May 21, 2017. Central Line Procedure time out: side/site verified, patient ID confirmed, sterile procedure used Consent obtained: written Time of procedure: 20:30 Performed by: attending Indications: poor venous access, central drug admin., long-term access Contraindications: coagulopathy Prep: chlorhexadine prep, sterile drape, sterile procedures used Anesthesia: local injection, lidocaine 1% without epi Volume anesthetic (ml's): 3 Central line lumen: triple Central line location: femoral (L) Additional details: ultrasound guidance, Selinger technique used, line sutured Complications: none Patient tolerated procedure: well Post-procedure vital signs: reviewed and stable Comments: Critical Care Medicine Point of Care Bedside Ultrasound Procedure: Procedural Ultrasound Procedure Date: 05/21/2017 Indication: Left femoral central venous access Attending: Mary Berkowitz DO Resident/Physician Steel Layer: Shima If for central venous access Artery AND Vein visualized: y Compressible Vein: y Guidewire or Short Catheter seen in vein prior to dilation: y Line confirmed in Vein with ultrasound: y Lung Sliding on side of attempt (if applicable): NA If no lung sliding or not obtained has CXR been ordered: NA Impression: Successful placement of 15 cm catheter into the left femoral vein. Images obtained are saved for permanent record
[2017-05-21] MEDS: ACETAMINOPHEN 325 MG TAB PO PRN (21:26)
[2017-05-21] MEDS: GABAPENTIN 800 MG TAB PO SCH (21:27)
[2017-05-21] MEDS: INSULIN GLARGINE SOLOSTAR 100 UNITS/ML 3 ML PEN SC SCH (21:48)
--- NOTE | 2017-05-21 21:53 | DIAGNOSTIC IMAGING REPORT ---
CHEST ONE VIEW PORTABLE CLINICAL HISTORY: Central Line Attempt Bilaterally COMPARISON STUDY: A 2917 FINDINGS: The heart remains enlarged. There are postsurgical changes of a midline sternotomy. There is no change the position of the right internal jugular dual-lumen central venous catheter. There is radiographic evidence of mild congestive failure. There is no focal pulmonary consolidation. No pneumothorax is visualized status post central line attempt.[ IMPRESSION: 1. Cardiomegaly and mild pulmonary vascular congestion/fluid overload 2. No evidence of focal pulmonary consolidation 3. No evidence of pneumothorax Electronically signed by: Loki Ferreira M.D. 05/21/2017 9:52 PM Dictated Date/Time: 05/21/2017 9:51 PM
--- NOTE | 2017-05-21 21:57 | DIAGNOSTIC IMAGING REPORT ---
KUB CLINICAL HISTORY: LEFT fem CVL placement COMPARISON STUDY: No previous studies for comparison. FINDINGS: There is no pathologic bowel dilatation. There is a mild lumbar levoscoliosis. A radiopaque catheter is visualized within the left pelvis consistent with the history of an surgical left femoral line. IMPRESSION: 1. A left femoral vascular catheter is visualized. 2. No evidence of pathologic bowel dilatation. Electronically signed by: Loki Ferreira M.D. 05/21/2017 9:56 PM Dictated Date/Time: 05/21/2017 9:55 PM
[2017-05-21 22:24] LABS: CKMB/CK RATIO 1.5 (0-3.0)
[2017-05-21] MEDS: PIPERACILL/TAZOBAC IV 4.5 GM in DEXTROSE 5% 100ML 100 ML IV SCH (23:59)
[2017-05-22] VITALS (133 sets, daily range): BP systolic 69–108; BP diastolic 42–75; PULSE 53–131; TEMP 37.1–38.7; O2SAT 84–100; Ht 180.3 cm; Wt 102.5 kg
[2017-05-22] MEDS: INSULIN ASPART 100 UNITS/ML 3 ML PEN SC SCH ×6 (00:28→21:43)
[2017-05-22] MEDS ORDERED: NURSING DECISION MEDICATION ORDER SCH (04:15)
[2017-05-22] MEDS: ACETAMINOPHEN 325 MG TAB PO PRN ×3 (04:17→17:09)
[2017-05-22] MEDS ORDERED: NOREPINEPHRINE BIT INJ 8 MG in DEXTROSE 5% 500ML 500 ML IV PRN (04:30)
[2017-05-22 05:48] LABS: HEMATOCRIT 29.1 % (42-52); MEAN CELL VOLUME 89.8 fL (80-100); MEAN CORPUSCULAR HEMOGLOBIN 28.7 pg (25-34); RED BLOOD COUNT 3.24 M/uL (4.7-6.1); WHITE BLOOD COUNT 9.56 K/uL (4.8-10.8)
[2017-05-22 05:54] LABS: MEAN PLATELET VOLUME 10.6 fL (7.4-10.4); PLATELET COUNT 74 K/uL (130-400)
[2017-05-22 05:59] LABS: INR 1.9 (0.9-1.1); PARTIAL THROMBOPLASTIN RATIO 1.4; PROTHROMBIN TIME (PATIENT) 20.5 SECONDS (9.0-12.0)
[2017-05-22 06:47] LABS: ALKALINE PHOSPHATASE 144 U/L (45-117); ALT/SGPT 19 U/L (12-78); AST/SGOT 14 U/L (15-37); BLOOD UREA NITROGEN 24 mg/dl (7-18); BUN/CREATININE RATIO 5.1 (10-20); CALCIUM 8.1 mg/dl (8.5-10.1); CARBON DIOXIDE 31 mmol/L (21-32); CHLORIDE 97 mmol/L (98-107); GLUCOSE 153 mg/dl (70-99); PHOSPHORUS 2.8 mg/dl (2.5-4.9); POTASSIUM 4.2 mmol/L (3.5-5.1); SODIUM 134 mmol/L (136-145)
--- NOTE | 2017-05-22 07:34 | DIAGNOSTIC IMAGING REPORT ---
CHEST ONE VIEW PORTABLE HISTORY: 62 years-old Male SEPSIS COMPARISON: Portable chest radiograph 05/21/2017 TECHNIQUE: Portable upright AP view of the chest FINDINGS: Cardiac silhouette is moderately enlarged prior median sternotomy. Dual lumen right internal jugular hemodialysis catheter terminates in the region of the mid SVC. There is no pneumothorax or large pleural effusion. Mild pulmonary vascular congestion persists with a subtle degree of background interstitial coarsening. No significant change from prior study. The bones are grossly intact. IMPRESSION: Stable exam with redemonstration of moderate cardiomegaly and pulmonary vascular congestion. No focal airspace consolidation or pneumothorax. The above report was generated using voice recognition software. It may contain grammatical, syntax or spelling errors. Electronically signed by: Maximino Arenas M.D. 05/22/2017 7:33 AM Dictated Date/Time: 05/22/2017 7:31 AM
[2017-05-22] MEDS: GABAPENTIN 800 MG TAB PO SCH ×3 (07:44→21:40)
[2017-05-22] MEDS: ASPIRIN 81 MG ECTAB PO SCH (07:44)
[2017-05-22] MEDS: CLOPIDOGREL BISULFATE 75 MG TAB PO SCH (07:44)
[2017-05-22] MEDS: DIGOXIN 0.125 MG TAB PO SCH (07:45)
[2017-05-22] MEDS: DOCUSATE SODIUM 100 MG CAP PO SCH (07:45)
[2017-05-22] MEDS: LACTULOSE SYRUP 10 GM/15 ML BTL 473 ML PO SCH ×4 (07:45→21:40)
[2017-05-22] MEDS: PHENYLEPHRINE HCL INJ 20 MG in DEXTROSE 5% 500ML 500 ML IV PRN ×2 (07:48→17:00)
[2017-05-22] MEDS ORDERED: NURSING VERBAL MED ORDER ONE (08:45)
[2017-05-22] MEDS ORDERED: HEPARIN SOD (PORCINE) 1000 UNIT/ML 1 ML VIAL IV ONE (09:30)
--- NOTE | 2017-05-22 10:16 | Clinical Documentation Query ---
JORGE Marrero : CLINICAL DOCUMENTATION QUERIES QUERY 1 OF 2 Documentation includes CKD stage IV with an estimated GFR range of 15-30 ml/min. Patient noted to be a dialysis patient with GFR being < 20 ml/min since 09/07. He was started on hemodialysis in April 2017. As appropriate, consider documentation as suggested below in order to capture the severity of illness and associated risk of mortality. In your clinical opinion is this patient being managed for: ( ) CKD 4-5 with hemodialysis (X ) End stage renal disease ( ) Not Agree ( ) Other explanation of clinical findings (Please Explain) ( ) Unable to determine (Please Define) ( ) Need to Discuss The medical record reflects the following clinical findings, treatment, and risk factors. Clinical Indicators: As above Treatment: Hemodialysis, serial chemistries, nephrology consultation Risk Factors: Age, diabetes, afib, CHF QUERY 2 OF 2 In your clinical opinion is this patient being managed for: ( X ) Myocardial demand ischemia in the setting of rapid atrial flutter ( ) Not Agree ( ) Other explanation of clinical findings (Please Explain) ( ) Unable to determine (Please Define) ( ) Need to Discuss The medical record reflects the following clinical findings, treatment, and risk factors. Clinical Indicators: Rapid atrial flutter, non-specific ST-T wave changes on EKG Treatment: Digoxin, hardwire cardiac monitoring, ASA, Plavix, Toprol XL Risk Factors: Age, CHF, CKD Please clarify and document your clinical opinion in the progress notes and discharge summary. Terms such as "probable", "suspected", "likely", "questionable", "possible", or "still to be ruled out" are acceptable. IF IN AGREEMENT, YOU MUST DOCUMENT ABOVE DIAGNOSTIC STATEMENT IN DAILY PROGRESS NOTES AND DISCHARGE SUMMARY. This document is not part of the patient's record. Thank You, Juventino Stokes, RN [phone]
[2017-05-22 10:48] LABS: BASO ABS # 0.09 K/uL (0-0.2); BASOPHIL % 0.9 % (0-2); COMPLETE YES; LYMPHOCYTE % 5.2 %; MYELOCYTE % 0.9 %; NEUTROPHILS % 91.2 %
--- NOTE | 2017-05-22 10:49 | Clinical Documentation Query ---
LILY Domingo : CLINICAL DOCUMENTATION QUERY Documentation includes: "ID - Patients meets SIRS criteria - temp of 37.8 in the ED and WCC of 13.7 - Blood cultures pending, patient unable to produce urine and UA still pending - On Vancomycin and Zosyn - POC venous lactic acid 1.89, ABG pending - Hx of MRSA, contact precautions - Wound care consult - Likely source lower extremities vs urinary source." SIRS due to an infectious source no longer (as of ICD-10) goes to sepsis as it did in ICD 9. This relationship cannot be assumed by the professional poly operator. Additionally, the last part of the diagnostic statement cannot be assumed to be bilateral lower extremity cellulitis and/or UTI. Consider documentation, as appropriate, as suggested below. Thank you. In your clinical opinion is this patient being managed for: ( ) Septic shock secondary to bilateral lower extremity cellulitis and/or UTI ( ) Not Agree ( ) Other explanation of clinical findings (Please Explain) ( ) Unable to determine (Please Define) ( ) Need to Discuss The medical record reflects the following clinical findings, treatment, and risk factors. Clinical Indicators: As above Treatment: Admission, IV antibiotics, wound consult, serial labs, IVF boluses, levophed Risk Factors: Age, diabetes, ?ESRD Please clarify and document your clinical opinion in the progress notes and discharge summary. Terms such as "probable", "suspected", "likely", "questionable", "possible", or "still to be ruled out" are acceptable. IF IN AGREEMENT, YOU MUST DOCUMENT ABOVE DIAGNOSTIC STATEMENT IN DAILY PROGRESS NOTES AND DISCHARGE SUMMARY. This document is not part of the patient's record. Thank You, Juventino Stokes, ELLIOTT [phone]
--- NOTE | 2017-05-22 11:10 | Nephrology Progress Note ---
Nephrology Progress Note Date of Service May 22, 2017. Chief Complaint F/U for end-stage renal disease. Lro Bergeron was seen and examined in his room in ICU. He feels "miserable" and keeps saying that nobody tells him anything what is going on. Explained the blood culture report, current blood pressure and heart rate as well as marked improvement in lower extremity erythema. He is still on pressor but blood pressure still significantly low. Has a femoral central line. He seems irritable and wants to get off the bed however explained that with his femoral line he will need to lie in bed and also at risk for fall with significantly low blood pressure. Review of Systems A complete review of systems was performed. Pertinent positives are noted above. All other systems are negative. Vital Signs Last 8 Hrs Date Time Temp Pulse Resp B/P (MAP) Pulse Ox O2 Delivery O2 Flow Rate FiO2 05/22/17 07:45 83 05/22/17 06:02 131 26 77/50 (59) 96 05/22/17 05:47 101 24 93/57 (69) 05/22/17 05:32 96 20 95/49 (64) 05/22/17 05:16 113 25 101/54 (70) 92 05/22/17 05:01 80 9 101/75 (84) 90 05/22/17 04:47 77 23 101/70 (80) 95 05/22/17 04:31 76 23 103/66 (78) 100 05/22/17 04:16 80 24 108/61 (77) 100 05/22/17 04:01 37.8 75 24 77/54 (62) 97 05/22/17 04:00 Nasal Cannula 3.0 05/22/17 03:16 73 15 76/53 (61) 100 05/22/17 03:01 74 20 81/58 (66) 100 05/22/17 02:46 86 10 86/57 (67) 05/22/17 02:31 73 22 81/53 (62) 100 05/22/17 02:22 73 13 88/54 (65) 100 05/22/17 02:01 73 24 75/56 (62) 99 05/22/17 01:56 73 8 73/52 (59) 100 05/22/17 01:46 77 22 76/52 (60) 84 05/22/17 01:44 83 20 82/59 (67) 05/22/17 01:37 74 12 79/53 (62) 97 05/22/17 01:31 74 6 77/51 (60) 97 05/22/17 01:16 74 10 79/54 (62) 97 05/22/17 01:01 74 10 78/53 (61) 95 05/22/17 00:46 74 24 89/55 (66) 91 Last Recorded Weight Weight (Kilograms): 103.900 Physical Exam GENERAL: middle aged male, AAA x 3, irritable, distressed NECK: Supple, no JVD. RESPIRATORY: CTA CARDIOVASCULAR: tachycardic, rhythm irregular. ABDOMEN: soft, positive bowel sound EXTREMITY: B/L lower extremity edema erythema, edema and skin break , marked improvement in erythema NEURO: speech fluent. PSYCHIATRY: anxious and agitated Family History No pertinent family history Social History Smokeless Tobacco Use: No Alcohol Use: none Drug Use: none Marital Status: Housing Status: lives with family Occupation: disabled Laboratory Results Past 24 Hours 05/21/17 13:16 Red Blood Count 3.51, Mean Corpuscular Volume 88.9, Mean Corpuscular Hemoglobin 28.8, Mean Corpuscular Hemoglobin Concent 32.4, Mean Platelet Volume 11.6, Neutrophils (%) (Auto) 90.0, Lymphocytes (%) (Auto) 1.8, Monocytes (%) (Auto) 7.1, Eosinophils (%) (Auto) 0.3, Basophils (%) (Auto) 0.1, Neutrophils # (Auto) 12.31, Lymphocytes # (Auto) 0.25, Monocytes # (Auto) 0.97, Eosinophils # (Auto) 0.04, Basophils # (Auto) 0.02 05/22/17 05:32 Red Blood Count 3.24, Mean Corpuscular Volume 89.8, Mean Corpuscular Hemoglobin 28.7, Mean Corpuscular Hemoglobin Concent 32.0, Mean Platelet Volume 10.6 05/21/17 13:16 05/22/17 05:32 Test 05/21/17 13:16 05/21/17 13:34 05/21/17 16:18 05/21/17 17:12 White Blood Count 13.69 K/uL (4.8-10.8) Red Blood Count 3.51 M/uL (4.7-6.1) Hemoglobin 10.1 g/dL (14.0-18.0) Hematocrit 31.2 % (42-52) Mean Corpuscular Volume 88.9 fL (80-100) Mean Corpuscular Hemoglobin 28.8 pg (25-34) Mean Corpuscular Hemoglobin Concent 32.4 g/dl (32-36) Platelet Count 75 K/uL (130-400) Mean Platelet Volume 11.6 fL (7.4-10.4) Neutrophils (%) (Auto) 90.0 % Lymphocytes (%) (Auto) 1.8 % Monocytes (%) (Auto) 7.1 % Eosinophils (%) (Auto) 0.3 % Basophils (%) (Auto) 0.1 % Neutrophils # (Auto) 12.31 K/uL (1.4-6.5) Lymphocytes # (Auto) 0.25 K/uL (1.2-3.4) Monocytes # (Auto) 0.97 K/uL (0.11-0.59) Eosinophils # (Auto) 0.04 K/uL (0-0.5) Basophils # (Auto) 0.02 K/uL (0-0.2) RDW Standard Deviation 49.8 fL (36.4-46.3) RDW Coefficient of Variation 15.6 % (11.5-14.5) Immature Granulocyte % (Auto) 0.7 % Immature Granulocyte # (Auto) 0.10 K/uL (0.00-0.02) Platelet Estimate DECREASED Red Blood Cell Morphology Unremarkable Prothrombin Time 60.1 SECONDS (9.0-12.0) Prothromb Time International Ratio 5.2 (0.9-1.1) Activated Partial Thromboplast Time 61.6 SECONDS (21.0-31.0) Partial Thromboplastin Ratio 2.4 Anion Gap 8.0 mmol/L (3-11) Est Creatinine Clear Calc Drug Dose 23.5 ml/min Estimated GFR () 18.1 Estimated GFR (Non- 15.6 BUN/Creatinine Ratio 4.7 (10-20) Calcium Level 8.9 mg/dl (8.5-10.1) Magnesium Level 1.7 mg/dl (1.8-2.4) Total Bilirubin 0.9 mg/dl (0.2-1) Aspartate Amino Transf (AST/SGOT) 12 U/L (15-37) Alanine Aminotransferase (ALT/SGPT) 20 U/L (12-78) Alkaline Phosphatase 180 U/L (45-117) Troponin I 0.064 ng/ml (0-0.045) Total Protein 6.6 gm/dl (6.4-8.2) Albumin 3.0 gm/dl (3.4-5.0) Globulin 3.6 gm/dl (2.5-4.0) Albumin/Globulin Ratio 0.8 (0.9-2) Thyroid Stimulating Hormone (TSH) 0.375 uIu/ml (0.300-4.500) Digoxin Level 1.0 ng/ml (0.8-2.0) Bedside Lactic Acid Venous 1.89 mmol/L (0.90-1.70) Lactic Acid Level 2.1 mmol/L (0.4-2.0) Bedside Glucose 213 mg/dl (70-99) Test 05/21/17 21:44 05/21/17 21:47 05/22/17 00:23 05/22/17 05:32 Lactic Acid Level 2.5 mmol/L (0.4-2.0) 1.7 mmol/L (0.4-2.0) Total Creatine Kinase 39 U/L (39-308) 36 U/L (39-308) Creatine Kinase MB 0.6 ng/ml (0.5-3.6) < 0.5 ng/ml (0.5-3.6) Creatine Kinase MB Ratio 1.5 (0-3.0) (0-3.0) Troponin I 0.147 ng/ml (0-0.045) 0.162 ng/ml (0-0.045) Bedside Glucose (other) 238 mg/dl (70-99) 191 mg/dl (70-99) White Blood Count 9.56 K/uL (4.8-10.8) Red Blood Count 3.24 M/uL (4.7-6.1) Hemoglobin 9.3 g/dL (14.0-18.0) Hematocrit 29.1 % (42-52) Mean Corpuscular Volume 89.8 fL (80-100) Mean Corpuscular Hemoglobin 28.7 pg (25-34) Mean Corpuscular Hemoglobin Concent 32.0 g/dl (32-36) Platelet Count 74 K/uL (130-400) Mean Platelet Volume 10.6 fL (7.4-10.4) RDW Standard Deviation 51.8 fL (36.4-46.3) RDW Coefficient of Variation 15.9 % (11.5-14.5) Prothrombin Time 20.5 SECONDS (9.0-12.0) Prothromb Time International Ratio 1.9 (0.9-1.1) Activated Partial Thromboplast Time 36.6 SECONDS (21.0-31.0) Partial Thromboplastin Ratio 1.4 Anion Gap 6.0 mmol/L (3-11) Est Creatinine Clear Calc Drug Dose 20.7 ml/min Estimated GFR () 14.8 Estimated GFR (Non- 12.8 BUN/Creatinine Ratio 5.1 (10-20) Calcium Level 8.1 mg/dl (8.5-10.1) Phosphorus Level 2.8 mg/dl (2.5-4.9) Magnesium Level 2.0 mg/dl (1.8-2.4) Total Bilirubin 1.6 mg/dl (0.2-1) Direct Bilirubin 0.9 mg/dl (0-0.2) Aspartate Amino Transf (AST/SGOT) 14 U/L (15-37) Alanine Aminotransferase (ALT/SGPT) 19 U/L (12-78) Alkaline Phosphatase 144 U/L (45-117) Total Protein 6.2 gm/dl (6.4-8.2) Albumin 2.7 gm/dl (3.4-5.0) Lipase 64 U/L (73-393) Random Vancomycin Level 17.9 mcg/ml Test 05/22/17 06:34 Bedside Glucose (other) 162 mg/dl (70-99) Date/Time Source Procedure Growth Status 05/21/17 14:30 Nasal MRSA DNA Surveillance Screen - Final Specimen Positive for MRSA by DNA Probe Complete Allergies Coded Allergies: No Known Allergies (Unverified , 05/21/17) Medications Current Inpatient Medications Medications (Trade) Dose Ordered Sig/Mikie Route Start Time Stop Time Status Last Admin Dose Admin Vancomycin HCl (Consult) 1 ea UD PRN N/A 05/21/17 14:45 06/20/17 14:44 Acetaminophen (Tylenol Tab) 650 mg Q4H PRN PO 05/21/17 15:00 06/20/17 14:59 05/22/17 08:09 650 MG Piperacillin Sod/ Tazobactam Sod 4.5 gm/Dextrose 120 ml @ 30 mls/hr Q12@0000,1200 IV 05/22/17 00:00 06/01/17 00:00 05/21/17 23:59 30 MLS/HR Aspirin (Ecotrin Tab) 81 mg QAM PO 05/22/17 09:00 06/21/17 08:59 05/22/17 07:44 81 MG Clopidogrel Bisulfate (plAVix TAB) 75 mg DAILY PO 05/22/17 09:00 06/21/17 08:59 05/22/17 07:44 75 MG Digoxin (Lanoxin Tab) 0.125 mg DAILY PO 05/22/17 09:00 06/21/17 08:59 05/22/17 07:45 0.125 MG Docusate Sodium (coLACE CAP) 100 mg DAILY PO 05/22/17 09:00 06/21/17 08:59 05/22/17 07:45 100 MG Gabapentin (Neurontin Tab) 800 mg TID PO 05/21/17 21:00 06/20/17 20:59 05/22/17 07:44 800 MG Insulin Glargine (Lantus Solostar Pen) 20 units QPM SC 05/21/17 21:00 06/20/17 20:59 05/21/17 21:48 20 UNITS Lactulose (Chronulac Syrup) 10 gm QID PO 05/21/17 17:00 06/20/17 16:59 05/22/17 07:45 10 GM Lorazepam (Ativan Tab) 0.5 mg Q6H PRN PO 05/21/17 15:15 06/20/17 15:14 Acetaminophen/ Hydrocodone Bitart ([place] 5/325 Tab) 1 tab Q4H PRN PO 05/21/17 16:00 06/04/17 15:59 Insulin Aspart (novoLOG ASPART) SLIDING SCALE If C... ACHS SC 05/21/17 16:00 06/20/17 15:59 05/22/17 08:08 1 UNITS Glucose (Glucose 40% Gel) UD PRN PO 05/21/17 15:15 06/20/17 15:14 Glucose (Glucose Chew Tab) 1 tabs UD PRN PO 05/21/17 15:15 06/20/17 15:14 Dextrose (Dextrose 50% 50ML Syringe) 50 ml UD PRN IV 05/21/17 15:15 06/20/17 15:14 Glucagon (Glucagon Inj) 1 mg UD PRN SQ 05/21/17 15:15 06/20/17 15:14 Piperacillin Sod/ Tazobactam Sod (Consult) 1 ea UD PRN N/A 05/21/17 16:15 06/20/17 16:14 Phenylephrine HCl 20 mg/Dextrose 502 ml @ 0 mls/hr Q0M PRN IV 05/21/17 20:00 06/20/17 19:59 05/22/17 07:48 61.2 MLS/HR Norepinephrine Bitartrate 8 mg/ Dextrose 508 ml @ 0 mls/hr Q0M PRN IV 05/22/17 04:30 06/21/17 04:29 Otis Bergeron is a 62-year-old gentlemen with ESRD secondary to diabetic nephropathy, on hemodialysis Saturday, , Saturday via right IJ tunnel dialysis catheter. Has hypertension, diabetes, coronary artery disease, CHF with right- sided heart failure. Was sent to the emergency room from dialysis unit as he was found to have rapid heart rate, lethargic and was febrile after 2 hours of dialysis treatment. His tunnel dialysis catheter area was otherwise normal, nontender without any sign of infection, blood culture was drawn and he was sent to emergency room for further evaluation. Has was found to hae B/L LE cellulitis He has atrial flutter with rapid ventricular rate, recently had admission at [facility] twice, he was discharged on carvedilol 12.5 milligram twice a day , digoxin 125 microgram daily and Coumadin. [employer] recommended ROBERTO and cardioversion because of for recurrent admission and noncompliance with medication however he refused. On admission his chest x-ray was unremarkable, EKG showed a flutter with RVR, digoxin level was 1.0 and INR was 5.1. Recommendations --currently his volume status and electrolyte acceptable -- continue pressor and avoid IV fluid -- left UE nephrology precaution for future vascular access -- TDC area without any sign of infection, unlikely to be the source of bacteremia, would keep the catheter in place for now and repeat blood cx. --agree with continuing empiric antibiotic -- hold off on PD catheter for now --continue on Nephrocaps and calcitriol -- hold phosphate binder as patient having poor p.o. intake and phosphate level has been normal -- start on boost 1 can 3 times a day and encourage protein intake -- MARCIO [id number] units with next hemodialysis treatment --plan for HD tomorrow
[2017-05-22] MEDS ORDERED: PHYTONADIONE 5 MG TAB PO STA (11:41)
[2017-05-22] MEDS: SODIUM CHLORIDE 0.9% IV SCH ×2 (11:57→15:46)
[2017-05-22] MEDS: THIAMINE HCL IV SCH ×2 (11:57→15:46)
[2017-05-22] MEDS: ASCORBIC ACID IV SCH ×2 (11:57→15:46)
[2017-05-22] MEDS: PIPERACILL/TAZOBAC IV 4.5 GM in DEXTROSE 5% 100ML 100 ML IV SCH (11:58)
[2017-05-22] MEDS: LORAZEPAM 0.5 MG TAB PO PRN (12:00)
--- NOTE | 2017-05-22 12:06 | Surgery Consultation ---
Consultation Date of Service May 22, 2017. (Aleksandra Ferguson, NICOLE) Chief Complaint sepsis, possibly infected permcath (Aleksandra Ferguson, NICOLE) History of Present Illness The patient is a 62 year old male with multiple medical problems, including ESRD on HD, known to Dr Gaston for permcath insertion and future AV access for HD, admitted to [facility] for sepsis, seen today in consultation for bacteremia and possibly infected permcath. Pt admits fatigue, malaise, fever, but is poor historian and appears mildly confused. States he feels better since coming to hospital and has had chronic ulcers to RLE. Denies CORREIA, chills, chest pain, SOB, a db pain, N/V, rest pain, claudication, other complaints. (Aleksandra Ferguson, NICOLE) Vitals Vital Signs Past 12 Hours Date Time Temp Pulse Resp B/P (MAP) Pulse Ox O2 Delivery O2 Flow Rate FiO2 05/22/17 11:30 37.1 78 28 100 Nasal Cannula 3.0 05/22/17 11:30 97 Nasal Cannula 3.0 05/22/17 11:16 74 21 82/67 (72) 100 05/22/17 11:15 74 17 100 05/22/17 11:01 74 17 81/65 (70) 99 05/22/17 11:00 73 22 100 05/22/17 10:46 74 20 102/61 (75) 98 05/22/17 10:45 74 20 100 05/22/17 10:31 74 21 94/63 (73) 100 05/22/17 10:30 74 21 98 05/22/17 10:16 75 19 76/58 (64) 93 05/22/17 10:15 76 19 96 05/22/17 10:01 75 21 83/54 (64) 100 05/22/17 10:00 75 19 100 05/22/17 09:46 75 19 77/59 (65) 05/22/17 09:45 75 15 05/22/17 09:31 75 20 77/56 (63) 05/22/17 09:30 75 19 05/22/17 09:17 90 19 91/51 (64) 05/22/17 09:15 75 14 05/22/17 09:00 76 25 05/22/17 08:46 76 23 90/57 (68) 100 Nasal Cannula 3.0 05/22/17 08:45 77 19 97 05/22/17 08:31 77 26 82/60 (67) 100 05/22/17 08:30 77 27 100 05/22/17 08:16 76 27 93/65 (74) 99 05/22/17 08:15 79 28 99 05/22/17 08:02 104 25 98/68 (78) 99 05/22/17 08:00 106 14 93 05/22/17 07:46 38.7 81 24 88/58 (68) 97 Nasal Cannula 3.0 05/22/17 07:45 79 25 100 05/22/17 07:45 83 05/22/17 07:40 96 Nasal Cannula 3.0 05/22/17 07:31 100 27 92/61 (71) 99 05/22/17 07:30 103 25 99 05/22/17 07:17 56 25 81/66 (71) 97 05/22/17 07:15 53 25 97 05/22/17 07:02 76 25 88/56 (67) 97 05/22/17 07:00 107 26 96 05/22/17 06:02 131 26 77/50 (59) 96 05/22/17 05:47 101 24 93/57 (69) 05/22/17 05:32 96 20 95/49 (64) 05/22/17 05:16 113 25 101/54 (70) 92 05/22/17 05:01 80 9 101/75 (84) 90 05/22/17 04:47 77 23 101/70 (80) 95 05/22/17 04:31 76 23 103/66 (78) 100 05/22/17 04:16 80 24 108/61 (77) 100 05/22/17 04:01 37.8 75 24 77/54 (62) 97 05/22/17 04:00 Nasal Cannula 3.0 05/22/17 03:16 73 15 76/53 (61) 100 05/22/17 03:01 74 20 81/58 (66) 100 05/22/17 02:46 86 10 86/57 (67) 05/22/17 02:31 73 22 81/53 (62) 100 05/22/17 02:22 73 13 88/54 (65) 100 05/22/17 02:01 73 24 75/56 (62) 99 05/22/17 01:56 73 8 73/52 (59) 100 05/22/17 01:46 77 22 76/52 (60) 84 05/22/17 01:44 83 20 82/59 (67) 05/22/17 01:37 74 12 79/53 (62) 97 05/22/17 01:31 74 6 77/51 (60) 97 05/22/17 01:16 74 10 79/54 (62) 97 05/22/17 01:01 74 10 78/53 (61) 95 05/22/17 00:46 74 24 89/55 (66) 91 05/22/17 00:32 75 23 80/56 (64) 90 05/22/17 00:16 77 21 82/52 (62) 97 05/22/17 00:12 37.8 83 21 78/55 (63) 05/22/17 00:00 Nasal Cannula 3.0 (Aleksandra Ferguson, PA-C) Allergies Coded Allergies: No Known Allergies (Unverified , 05/21/17) Home Medications Scheduled Aspirin (Aspirin EC Low Dose), 81 MG PO QAM Carvedilol (Carvedilol), 12.5 MG PO BID Ciprofloxacin Hcl (Cipro), 500 MG PO HS Clopidogrel (Plavix), 75 MG PO DAILY Digoxin (Digoxin), 0.125 MG PO Q1600 Docusate Sodium (Colace), 100 MG PO DAILY Fish Oil ([place]-3), 1 CAP PO DAILY Furosemide (Lasix), 40 MG PO DAILY Gabapentin (Neurontin), 800 MG PO TID Glyburide (Diabeta), 10 MG PO DAILY Insulin Aspart (Novolog Penfill), 8 UNITS SC TIDM Insulin Glargine (Lantus), 20 UNIT SC QPM Lactulose (Chronulac), 15 ML PO QID Metoprolol Succ (Toprol Xl) (Toprol-Xl), 25 MG PO DAILY Nitroglycerin (Nitrostat), 0.4 MG UT PRN Warfarin Sod (Jantoven), 5 MG PO QAM Scheduled PRN Hydrocodone-Acetaminophen (Hydrocodone Bitartrate/Ac), 5 MG PO Q4H PRN for Pain Lorazepam (Ativan), 0.5 MG PO Q6H PRN for Anxiety Miscellaneous Medications Psyllium (Metamucil) Problem List Medical Problems: (1) Acute renal failure (2) Afib (3) Anemia (4) Atrial flutter (5) CHF (congestive heart failure) (6) Chronic systolic CHF (congestive heart failure) (7) CKD (chronic kidney disease) stage 4, GFR 15-29 ml/min (8) Diabetic polyneuropathy (9) ESRD (end stage renal disease) on dialysis (10) Hyperphosphatemia (11) Metabolic acidosis (12) Volume overload (Aleksandra Ferguson, LUCILAC) Surgical / Medical History Hx Cardiac Surgery: Yes (CABG) Hx Abdominal Surgery: No Hx Cancer Surgery: No Hx Thoracic Surgery: No Hx Orthopedic: No Hx Urinary Tract Surgery: No HX Other Surgery: No Past Medical/Surgical History: Diabetes, Heart Disease, High Cholesterol, Hypertension, Kidney Disease (Aleksandra Ferguson, LUCILAC) Family History No pertinent family history + DMII, HTN (Aleksandra Ferguson, LUCILAC) No pertinent family history (Ar Gaston M.D.) Social History Smoking Status: Former Smoker Hx Tobacco Use In Past Year?: No Hx Alcohol Use - Type & Amnt: No Hx Substance Use -Type & Amnt: No (Aleksandra Ferguson, LUCILAC) Review of Systems Constitutional: + fever, + malaise, No chills Skin: No change in color Eyes: No visual changes ENMT: No sore throat Respiratory: No cough, No ROMANO, No short of breath Cardiovascular: + edema, No chest pain, No palpitations, No syncope, No intermittent claudication Gastrointestinal: No abdominal pain, No nausea, No vomiting Neurologic: No dizziness, No headache, No numbness, No tingling (Aleksandra Ferguson, PA-C) Physical Exam Constitutional: General Apperance: well-nourished, well-developed, obese Level of Distress: NAD, acutely ill, chronically ill Psychiatric: Mental Status: active & alert, confused Orientation: to place, to person, not oriented to time Memory: recent memory abnormal (vague), remote memory abnormal (vague) Head: normocephalic, atraumatic Eyes: EOM: EOMI ENMT: normal ENT inspection, hearing grossly normal Neck: supple, trachea midline Lungs: Respiratory effort: no dyspnea Auscultation: breath sounds normal, no rhonchi Cardiovascular: Apical Impulse: not displaced, pertinent finding (R IJ permcath without erythema edema, discharge or tenderness.) Heart Auscultation: no murmurs, no gallops Peripheral Pulses: Pulses: full and equal, in all extremities except if noted Bruits: none appreciated Brachial Pulses: normal on the left, normal on the right Radial Pulse: normal on the left, normal on the right Femoral Pulse: normal on the left, normal on the right Posterior Tibialis Pulse: decreased on the left, decreased on the right Dorsalis Pedis Pulse: decreased on the left, decreased on the right Abdomen: Bowel Sounds: normal Inspection & Palpation: soft, non-distended, no tenderness, guarding & rebound Musculoskeletal: normal strength (5/5 throughout), normal tone Extremities: Upper Right: no cyanosis, no edema Upper Left: no cyanosis, no edema, no varicosities Lower Right: no cyanosis, no varicosities, no palpable cord, edema, ulcers Lower Left: no cyanosis, no varicosities, no palpable cord, edema Neurologic: Cranial Nerves: grossly intact Sensation: grossly intact (Aleksandra Ferguson, PA-C) Assessment and Plan ASSESSMENT and PLAN: Sepsis/bacteremia ESRD on HD Pt appears mildly confused. Blood cx + for GPC. Permcath nontender, no overt sign of infection. Can remove permcath if felt to be necessary by all involved. Please call if needed. (Aleksandra Ferguson, PA-C) Patient was seen, examined, and chart reviewed. Agree with exam and treatment plan of the Vascular PA. Thank you very much for letting me participate in the care of this patient. (Ar Gaston M.D.)
[2017-05-22] MEDS: NYSTATIN POWDER 15GM BTL EXT SCH ×2 (12:49→21:40)
[2017-05-22] MEDS ORDERED: BOOST BREEZE NUTRITION DRINK 1 BOX PO SCH (14:00)
--- NOTE | 2017-05-22 14:03 | Critical Care Progress Note ---
Critical Care Progress Note Date of Service May 22, 2017. ICU Day ICU Day Number: [address] Berkowitz Subjective Patient without any acute events overnight He said he did feel cold throughout the night and was told he spiked a fever He does feel better than he did yesterday He denies any chest pain, palpitations or shortness of breath He denies any abdominal pain, vomiting or nausea He denies any pain around his permacath and he says that the drainage from his lower extremities has improved He denies any joint pain, muscle pain or calf pain He denies any dysuria, frequency, or incontinence He denies any rash or itch He denies any weakness, numbness or tingling Objective General Appearance: mild distress, appears comfortable, AAA x3 Head: normocephalic Eyes: PERRLA, no discharge, EOMI ENT: normal nasal exam, normal sinus exam, poor dentition Neck: no tenderness, trachea midline, supple, no thyromegaly, no lymphadenopathy Respiratory: breath sounds normal, clear to auscultation Cardiovasular: irregular rate, abnormal rhythm, abnormal pulses (weak peripheral pulses), other (distant heart sounds, permacath inferior to right clavicle) Abdomen: non tender, normal bowel sounds, no rebound, no masses, no guarding Lower Extremities: edema, other (bilateral lower extremity +1 edema and skin breakdown ---> improvement in erythema since yesterday ) Neuro: alert, oriented x 3, normal motor exam, normal speech Current SOFA Score SOFA Score Response (Comments) Value Platelets (x10) < 100 2 Bilirubin (mg/dL) < 1.2 0 Luz Coma Score 15 0 Level of Hypotension Dopamine > 15 mcq or Epi > 0.1 mcq 4 Creatinine (mg/dL) > 5.0 4 Total 10 Assessment & Plan 62 year old male with ESRD, DM, Aflutter, CHF and CAD s/p CABG who was admitted to the ICU due to sepsis leading to persistent hypotension and the need for vasopressor support. Found to have positive blood cultures with gram positive cocci and is still requiring pressor support. ID - Patients meets SIRS criteria - Blood cultures 2/2 gram positive cocci - Repeat blood cultures of permacath and peripheral line in order to help determine source of infection - Order echo to check for vegetations - On Vancomycin (vanc trough 17.9) and Zosyn - Cap lock permacath with vanc and hep until need decision for use - Hx of MRSA, contact precautions - Wound care consult - Likely source lower extremities vs permacath vs urinary source - Patient with fungal infection in groin, will treat with nystatin powder Cardiac - Atrial flutter - INR 1.9 today, will continue warfarin 5mg daily and continue to follow INR, will reverse anticoagulation if decision is made to remove permacath - Continue dig .125 PO qAM. Carvedilol and toprol xl held for now - CAD - hx of x5 CABG for [place] 4 years ago in [place]. Continue aspirin and plavix. troponins .147 and .167, likely demand ischaemia from sepsis - CHD - echo 05/09 showed EF of 20-25% with severe global hypokinesis and severe left ventricular dysfunction/severe right ventricular dysfunction. Hold lasix as blood pressure low. monitor I/O's - Hypotension - stop levophed and continue phenylephrine .4 for MAP of 65 Renal - ESRD had a permacath placed 3 weeks ago[address] with Dr. Max. Dr Max wants to keep permacath in place for now and does not think port is source of infection. - Goes to dialysis , and Saturday - Nephrology consulted - Lactulose daily - Continue nephrocaps and calcitriol - Will need to discuss with Dr. Max with regards to using patient permacath for dialysis treatment - MARCIO [id number] units with next hemodialysis treatment - Plan for HD tomorrow - Give Vitamin C IV Endo - Last HbA1c 8.9 on 05/13/17 - Insulin glargine 20 units QPM and insulin sliding scale with carb counting - Hx of peripheral neuropathy, continue gabapentin TID - Glyburide held due to ESRD GI - On colace once daily - Continue renal and diabetic diet - Fluid restrict to 1200ml Neuro - CAM - - Ativan 0.5 mg PRN for anxiety - [place] for pain Dispo - PT/OT ordered - FULL CODE Resident Physician Supervision Note: Dr. Shen was resident physician during care of patient. I separately evaluated patient and did history and exam. I discussed the case with the resident and generally agree with the findings and plan. Patient critically ill due to ongoing vasoactive medication requirement. At this point we have obtained a blood culture from the periphery as well as the permacath. Patient is bacteremic, I would still highly consider this source to be competent skin and soft tissue infection. However we can still cannot exclude an associated line infection, given the significant difficulty in placing advanced access, the patient would be a poor candidate for removal of his line at this time. He will need dialysis and the various she short future, therefore in discussion with nephrology we will proceed with antibiotic locks of the permacath for catheter salvage techniques. I have personally spent 40 minutes of critical care time in the direct management of this patient. This is a life/limb threatening event. This includes time spent evaluating patient, direct bedside care, chart review, placing orders, interpretation of diagnostic studies, discussion with consultants, patient, and family members, as well as other required patient management activities. This time is exclusive of all separately billable procedures, and teaching time and separate from and in addition to any other critical care service time. Documented By: Juventino Berkowitz DO Consults & Procedures Consultants: Dr. Winter Gaston Procedures: Left femoral line Data Medications: Current Inpatient Medications Medications (Trade) Dose Ordered Sig/Mikie Route Start Time Stop Time Status Last Admin Dose Admin Vancomycin HCl (Consult) 1 ea UD PRN N/A 05/21/17 14:45 06/20/17 14:44 Acetaminophen (Tylenol Tab) 650 mg Q4H PRN PO 05/21/17 15:00 06/20/17 14:59 05/22/17 08:09 650 MG Piperacillin Sod/ Tazobactam Sod 4.5 gm/Dextrose 120 ml @ 30 mls/hr Q12@0000,1200 IV 05/22/17 00:00 06/01/17 00:00 05/22/17 11:58 30 MLS/HR Aspirin (Ecotrin Tab) 81 mg QAM PO 05/22/17 09:00 06/21/17 08:59 05/22/17 07:44 81 MG Clopidogrel Bisulfate (plAVix TAB) 75 mg DAILY PO 05/22/17 09:00 06/21/17 08:59 05/22/17 07:44 75 MG Digoxin (Lanoxin Tab) 0.125 mg DAILY PO 05/22/17 09:00 06/21/17 08:59 05/22/17 07:45 0.125 MG Docusate Sodium (coLACE CAP) 100 mg DAILY PO 05/22/17 09:00 06/21/17 08:59 05/22/17 07:45 100 MG Gabapentin (Neurontin Tab) 800 mg TID PO 05/21/17 21:00 06/20/17 20:59 05/22/17 07:44 800 MG Insulin Glargine (Lantus Solostar Pen) 20 units QPM SC 05/21/17 21:00 06/20/17 20:59 05/21/17 21:48 20 UNITS Lactulose (Chronulac Syrup) 10 gm QID PO 05/21/17 17:00 06/20/17 16:59 05/22/17 12:15 10 GM Lorazepam (Ativan Tab) 0.5 mg Q6H PRN PO 05/21/17 15:15 06/20/17 15:14 05/22/17 12:00 0.5 MG Acetaminophen/ Hydrocodone Bitart ([place] 5/325 Tab) 1 tab Q4H PRN PO 05/21/17 16:00 06/04/17 15:59 Insulin Aspart (novoLOG ASPART) SLIDING SCALE If C... ACHS SC 05/21/17 16:00 06/20/17 15:59 05/22/17 12:15 3 UNITS Glucose (Glucose 40% Gel) UD PRN PO 05/21/17 15:15 06/20/17 15:14 Glucose (Glucose Chew Tab) 1 tabs UD PRN PO 05/21/17 15:15 06/20/17 15:14 Dextrose (Dextrose 50% 50ML Syringe) 50 ml UD PRN IV 05/21/17 15:15 06/20/17 15:14 Glucagon (Glucagon Inj) 1 mg UD PRN SQ 05/21/17 15:15 06/20/17 15:14 Piperacillin Sod/ Tazobactam Sod (Consult) 1 ea UD PRN N/A 05/21/17 16:15 06/20/17 16:14 Phenylephrine HCl 20 mg/Dextrose 502 ml @ 0 mls/hr Q0M PRN IV 05/21/17 20:00 06/20/17 19:59 05/22/17 07:48 61.2 MLS/HR Norepinephrine Bitartrate 8 mg/ Dextrose 508 ml @ 0 mls/hr Q0M PRN IV 8/30/17 04:30 06/21/17 04:29 Epoetin Omi (Procrit Inj) 10,000 units TODAY@0900 IV 05/23/17 09:00 05/23/17 18:00 Nystatin (Mycostatin Powder) 1 appln TID EXT 05/22/17 14:00 06/21/17 13:59 05/22/17 12:49 1 APPLN Ascorbic Acid 1500 mg/Thiamine HCl 50 mg/Sodium Chloride 103.5 ml @ 206 mls/hr Q6H IV 05/22/17 12:00 05/26/17 06:31 05/22/17 11:57 206 MLS/HR Vancomycin HCl 10 mg/Heparin Sodium (Porcine) 26315 unit/Syringe 4 ml @ 0 mls/min DAILY@2100 IV 05/22/17 21:00 06/05/17 20:59 Pantoprazole Sodium (Protonix Tab) 40 mg QAM PO 05/22/17 14:00 06/21/17 13:59 Warfarin Sodium (Coumadin Tab) 5 mg DAILY@16 PO 05/22/17 16:00 06/21/17 15:59 Vital Signs: Date Time Temp Pulse Resp B/P (MAP) Pulse Ox O2 Delivery O2 Flow Rate FiO2 05/22/17 11:30 37.1 78 28 100 Nasal Cannula 3.0 05/22/17 11:30 97 Nasal Cannula 3.0 05/22/17 11:16 74 21 82/67 (72) 100 05/22/17 11:15 74 17 100 05/22/17 11:01 74 17 81/65 (70) 99 05/22/17 11:00 73 22 100 05/22/17 10:46 74 20 102/61 (75) 98 05/22/17 10:45 74 20 100 05/22/17 10:31 74 21 94/63 (73) 100 05/22/17 10:30 74 21 98 05/22/17 10:16 75 19 76/58 (64) 93 05/22/17 10:15 76 19 96 05/22/17 10:01 75 21 83/54 (64) 100 05/22/17 10:00 75 19 100 05/22/17 09:46 75 19 77/59 (65) 05/22/17 09:45 75 15 05/22/17 09:31 75 20 77/56 (63) 05/22/17 09:30 75 19 05/22/17 09:17 90 19 91/51 (64) 05/22/17 09:15 75 14 05/22/17 09:00 76 25 05/22/17 08:46 76 23 90/57 (68) 100 Nasal Cannula 3.0 05/22/17 08:45 77 19 97 05/22/17 08:31 77 26 82/60 (67) 100 05/22/17 08:30 77 27 100 05/22/17 08:16 76 27 93/65 (74) 99 05/22/17 08:15 79 28 99 05/22/17 08:02 104 25 98/68 (78) 99 05/22/17 08:00 106 14 93 05/22/17 07:46 38.7 81 24 88/58 (68) 97 Nasal Cannula 3.0 05/22/17 07:45 79 25 100 05/22/17 07:45 83 05/22/17 07:40 96 Nasal Cannula 3.0 05/22/17 07:31 100 27 92/61 (71) 99 05/22/17 07:30 103 25 99 05/22/17 07:17 56 25 81/66 (71) 97 05/22/17 07:15 53 25 97 05/22/17 07:02 76 25 88/56 (67) 97 05/22/17 07:00 107 26 96 05/22/17 06:02 131 26 77/50 (59) 96 05/22/17 05:47 101 24 93/57 (69) 05/22/17 05:32 96 20 95/49 (64) 05/22/17 05:16 113 25 101/54 (70) 92 05/22/17 05:01 80 9 101/75 (84) 90 05/22/17 04:47 77 23 101/70 (80) 95 05/22/17 04:31 76 23 103/66 (78) 100 05/22/17 04:16 80 24 108/61 (77) 100 05/22/17 04:01 37.8 75 24 77/54 (62) 97 05/22/17 04:00 Nasal Cannula 3.0 05/22/17 03:16 73 15 76/53 (61) 100 05/22/17 03:01 74 20 81/58 (66) 100 05/22/17 02:46 86 10 86/57 (67) 05/22/17 02:31 73 22 81/53 (62) 100 05/22/17 02:22 73 13 88/54 (65) 100 05/22/17 02:01 73 24 75/56 (62) 99 05/22/17 01:56 73 8 73/52 (59) 100 05/22/17 01:46 77 22 76/52 (60) 84 05/22/17 01:44 83 20 82/59 (67) 05/22/17 01:37 74 12 79/53 (62) 97 05/22/17 01:31 74 6 77/51 (60) 97 05/22/17 01:16 74 10 79/54 (62) 97 05/22/17 01:01 74 10 78/53 (61) 95 05/22/17 00:46 74 24 89/55 (66) 91 05/22/17 00:32 75 23 80/56 (64) 90 05/22/17 00:16 77 21 82/52 (62) 97 05/22/17 00:12 37.8 83 21 78/55 (63) 05/22/17 00:00 Nasal Cannula 3.0 05/21/17 23:31 100 22 112/88 (96) 05/21/17 23:22 76 23 71/51 (58) 95 05/21/17 23:15 76 22 73/50 (58) 95 05/21/17 23:01 76 24 69/51 (57) 05/21/17 22:50 72 23 74/49 (57) 93 05/21/17 22:46 76 24 66/54 (58) 92 05/21/17 22:31 85 25 77/56 (63) 91 05/21/17 22:16 104 26 100/61 (74) 93 05/21/17 22:01 100 24 84/66 (72) 05/21/17 21:30 37.3 05/21/17 21:26 107 28 99/64 (76) 92 05/21/17 21:16 117 28 177/153 (161) 76 05/21/17 21:04 111 20 144/103 (117) 05/21/17 20:46 107 16 89/64 (72) 05/21/17 20:42 113 19 104/52 (69) 05/21/17 20:31 101 27 111/78 (89) 05/21/17 20:16 113 23 104/75 (85) 05/21/17 20:01 37.1 107 22 109/71 (84) 05/21/17 19:46 112 25 112/74 (87) 05/21/17 19:45 Nasal Cannula 3.0 05/21/17 19:40 99 21 105/76 (86) 05/21/17 19:21 101 24 101/69 (80) 99 05/21/17 19:18 99 17 66/53 (57) 94 05/21/17 19:02 79 19 86/61 (69) 05/21/17 18:01 80 16 81/51 (61) 99 Nasal Cannula 3.0 05/21/17 17:46 36.7 73 18 82/52 97 Nasal Cannula 3.0 05/21/17 17:32 86 17 82/52 (62) 05/21/17 17:16 84 18 60/46 (51) 85 Nasal Cannula 2.0 05/21/17 17:01 87 17 78/56 (63) 92 Nasal Cannula 3.0 05/21/17 16:16 92 18 98 05/21/17 16:14 36.9 05/21/17 16:12 86 22 68/53 100 Room Air 05/21/17 15:10 106 28 76/49 93 Nasal Cannula 05/21/17 14:27 103 20 74/52 96 Nasal Cannula 4.0 05/21/17 14:01 104 19 80/57 95 Nasal Cannula 4.0 05/21/17 13:48 103 22 95/53 95 Nasal Cannula 4.0 05/21/17 13:32 116 05/21/17 13:29 115 Laboratory Results: Last 24 Hours Test 05/21/17 13:34 05/21/17 16:18 05/21/17 17:12 05/21/17 21:44 Bedside Lactic Acid Venous 1.89 mmol/L Lactic Acid Level 2.1 mmol/L 2.5 mmol/L Bedside Glucose 213 mg/dl Total Creatine Kinase 39 U/L Creatine Kinase MB 0.6 ng/ml Creatine Kinase MB Ratio 1.5 Troponin I 0.147 ng/ml Test 8/29/17 21:47 05/22/17 00:23 05/22/17 05:32 05/22/17 06:34 Bedside Glucose (other) 238 mg/dl 191 mg/dl 162 mg/dl White Blood Count 9.56 K/uL Red Blood Count 3.24 M/uL Hemoglobin 9.3 g/dL Hematocrit 29.1 % Mean Corpuscular Volume 89.8 fL Mean Corpuscular Hemoglobin 28.7 pg Mean Corpuscular Hemoglobin Concent 32.0 g/dl Platelet Count 74 K/uL Mean Platelet Volume 10.6 fL RDW Standard Deviation 51.8 fL RDW Coefficient of Variation 15.9 % Neutrophils % (Manual) 91.2 % Lymphocytes % (Manual) 5.2 % Monocytes % (Manual) 0.9 % Basophils % (Manual) 0.9 % Myelocytes % 0.9 % Blast Cells % 0.9 % Neutrophils # (Manual) 8.72 K/uL Total Absolute Neutrophils 8.72 K/uL Lymphocytes # (Manual) 0.50 K/uL Total Absolute Lymphocytes 0.50 K/uL Monocytes # (Manual) 0.09 K/uL Basophils # (Manual) 0.09 K/uL Myelocytes # 0.09 K/uL Blast Cells # 0.09 K/uL Blood Smear Review Red Blood Cell Morphology Unremarkable Prothrombin Time 20.5 SECONDS Prothromb Time International Ratio 1.9 Activated Partial Thromboplast Time 36.6 SECONDS Partial Thromboplastin Ratio 1.4 Sodium Level 134 mmol/L Potassium Level 4.2 mmol/L Chloride Level 97 mmol/L Carbon Dioxide Level 31 mmol/L Anion Gap 6.0 mmol/L Blood Urea Nitrogen 24 mg/dl Creatinine 4.60 mg/dl Est Creatinine Clear Calc Drug Dose 20.7 ml/min Estimated GFR () 14.8 Estimated GFR (Non- 12.8 BUN/Creatinine Ratio 5.1 Random Glucose 153 mg/dl Lactic Acid Level 1.7 mmol/L Calcium Level 8.1 mg/dl Phosphorus Level 2.8 mg/dl Magnesium Level 2.0 mg/dl Total Bilirubin 1.6 mg/dl Direct Bilirubin 0.9 mg/dl Aspartate Amino Transf (AST/SGOT) 14 U/L Alanine Aminotransferase (ALT/SGPT) 19 U/L Alkaline Phosphatase 144 U/L Total Creatine Kinase 36 U/L Creatine Kinase MB < 0.5 ng/ml Creatine Kinase MB Ratio Troponin I 0.162 ng/ml Total Protein 6.2 gm/dl Albumin 2.7 gm/dl Lipase 64 U/L Random Vancomycin Level 17.9 mcg/ml
[2017-05-22] MEDS: PANTOprazole SOD 40 MG TAB PO SCH (14:05)
--- NOTE | 2017-05-22 15:32 | Pharmacy Progress Note ---
Pharmacy Abx Dose Short Note Date of Service May 22, 2017. Assessment & Plan Assessment * 62 year old male admitted secondary to hypotension, tachycardia and fever while at dialysis - sepsis secondary to skin/skin structure or HD catheter infxn. * He remains on pressor therapy at this time * Blood cultures x 2 are growing gram + cocci; nasal swab is MRSA + * He has a h/o lower extremity wound cx that grew enterococcus faecalis + serratia marcescens; although vancomycin PAWEL was 4 for enterococcus the organism was also penicillin sensitive; serratia was pansensitive * He is current receiving Vancomycin + Zosyn which should be appropriate coverage for likely pathogens * He is also to receive ABX lock therapy in an attempt to salvage HD catheter Plan Vancomycin * Vancomycin 1000mg + 750mg given yesterday * Random level drawn this AM = 17.9mcg/mL * The patient does not produce urine and is not scheduled to have HD until tomorrow. He shouldn't need redosed until tomorrow after HD. * Goal trough level for bacteremia/sepsis : 15 to 20 mcg/mL * Will check levels with AM labs to guide therapy Zosyn * continue extended interval dosin.5gm IV (over 4 hours) Q 12 hours for CrCl less than 20cc/min or dialysis dependent Pharmacy will continue to follow and will adjust dose/frequency as necessary. Thank you.
[2017-05-22] MEDS: WARFARIN SOD 5 MG TAB PO SCH (15:46)
--- NOTE | 2017-05-22 15:59 | Progress Note ---
Subjective Date of Service: May 22, 2017. Subjective Pt evaluation today including: conversation w/ patient, physical exam, chart review, lab review, review of studies, conversation w/ performance consultant, review of inpatient medication list Problem List Medical Problems: (1) Atrial fibrillation with rapid ventricular response Status: Acute (2) Atrial fibrillation with RVR Status: Acute (3) Cellulitis Status: Acute (4) Dehydration Status: Acute (5) Sepsis Status: Acute Review of Systems Constitutional: No fever, No chills Respiratory: No cough, No sputum, No wheezing, No shortness of breath, No dyspnea on exertion Cardiac: No chest pain, No orthopnea, No PND, No edema, No claudication Abdomen: No pain, No nausea, No vomiting, No diarrhea, No constipation Musculoskeletal: No joint pain, No muscle pain, No swelling, No calf pain Male : No dysuria, No urinary frequency, No incontinence, No slowing stream Neurologic: No memory loss, No paralysis, No weakness, No numbness/tingling Psychiatric: No depression symptoms, No anhedonism, No anxiety, No insomnia Endo: No fatigue, No excessive thirst Skin: No rash, No itch Objective Vital Signs Date Time Temp Pulse Resp B/P (MAP) Pulse Ox O2 Delivery O2 Flow Rate FiO2 05/22/17 11:30 37.1 78 28 100 Nasal Cannula 3.0 05/22/17 11:30 97 Nasal Cannula 3.0 05/22/17 11:16 74 21 82/67 (72) 100 05/22/17 11:15 74 17 100 05/22/17 11:01 74 17 81/65 (70) 99 05/22/17 11:00 73 22 100 05/22/17 10:46 74 20 102/61 (75) 98 05/22/17 10:45 74 20 100 05/22/17 10:31 74 21 94/63 (73) 100 05/22/17 10:30 74 21 98 05/22/17 10:16 75 19 76/58 (64) 93 05/22/17 10:15 76 19 96 05/22/17 10:01 75 21 83/54 (64) 100 05/22/17 10:00 75 19 100 05/22/17 09:46 75 19 77/59 (65) 05/22/17 09:45 75 15 05/22/17 09:31 75 20 77/56 (63) 05/22/17 09:30 75 19 05/22/17 09:17 90 19 91/51 (64) 05/22/17 09:15 75 14 05/22/17 09:00 76 25 05/22/17 08:46 76 23 90/57 (68) 100 Nasal Cannula 3.0 05/22/17 08:45 77 19 97 05/22/17 08:31 77 26 82/60 (67) 100 05/22/17 08:30 77 27 100 05/22/17 08:16 76 27 93/65 (74) 99 05/22/17 08:15 79 28 99 05/22/17 08:02 104 25 98/68 (78) 99 05/22/17 08:00 106 14 93 05/22/17 07:46 38.7 81 24 88/58 (68) 97 Nasal Cannula 3.0 05/22/17 07:45 79 25 100 05/22/17 07:45 83 05/22/17 07:40 96 Nasal Cannula 3.0 05/22/17 07:31 100 27 92/61 (71) 99 05/22/17 07:30 103 25 99 05/22/17 07:17 56 25 81/66 (71) 97 05/22/17 07:15 53 25 97 05/22/17 07:02 76 25 88/56 (67) 97 05/22/17 07:00 107 26 96 05/22/17 06:02 131 26 77/50 (59) 96 05/22/17 05:47 101 24 93/57 (69) 05/22/17 05:32 96 20 95/49 (64) 05/22/17 05:16 113 25 101/54 (70) 92 05/22/17 05:01 80 9 101/75 (84) 90 05/22/17 04:47 77 23 101/70 (80) 95 05/22/17 04:31 76 23 103/66 (78) 100 05/22/17 04:16 80 24 108/61 (77) 100 05/22/17 04:01 37.8 75 24 77/54 (62) 97 05/22/17 04:00 Nasal Cannula 3.0 05/22/17 03:16 73 15 76/53 (61) 100 05/22/17 03:01 74 20 81/58 (66) 100 05/22/17 02:46 86 10 86/57 (67) 05/22/17 02:31 73 22 81/53 (62) 100 05/22/17 02:22 73 13 88/54 (65) 100 05/22/17 02:01 73 24 75/56 (62) 99 05/22/17 01:56 73 8 73/52 (59) 100 05/22/17 01:46 77 22 76/52 (60) 84 05/22/17 01:44 83 20 82/59 (67) 05/22/17 01:37 74 12 79/53 (62) 97 05/22/17 01:31 74 6 77/51 (60) 97 05/22/17 01:16 74 10 79/54 (62) 97 05/22/17 01:01 74 10 78/53 (61) 95 05/22/17 00:46 74 24 89/55 (66) 91 05/22/17 00:32 75 23 80/56 (64) 90 05/22/17 00:16 77 21 82/52 (62) 97 05/22/17 00:12 37.8 83 21 78/55 (63) 05/22/17 00:00 Nasal Cannula 3.0 05/21/17 23:31 100 22 112/88 (96) 05/21/17 23:22 76 23 71/51 (58) 95 05/21/17 23:15 76 22 73/50 (58) 95 05/21/17 23:01 76 24 69/51 (57) 05/21/17 22:50 72 23 74/49 (57) 93 05/21/17 22:46 76 24 66/54 (58) 92 05/21/17 22:31 85 25 77/56 (63) 91 05/21/17 22:16 104 26 100/61 (74) 93 05/21/17 22:01 100 24 84/66 (72) 05/21/17 21:30 37.3 05/21/17 21:26 107 28 99/64 (76) 92 05/21/17 21:16 117 28 177/153 (161) 76 05/21/17 21:04 111 20 144/103 (117) 05/21/17 20:46 107 16 89/64 (72) 05/21/17 20:42 113 19 104/52 (69) 05/21/17 20:31 101 27 111/78 (89) 05/21/17 20:16 113 23 104/75 (85) 05/21/17 20:01 37.1 107 22 109/71 (84) 05/21/17 19:46 112 25 112/74 (87) 05/21/17 19:45 Nasal Cannula 3.0 05/21/17 19:40 99 21 105/76 (86) 05/21/17 19:21 101 24 101/69 (80) 99 05/21/17 19:18 99 17 66/53 (57) 94 05/21/17 19:02 79 19 86/61 (69) 05/21/17 18:01 80 16 81/51 (61) 99 Nasal Cannula 3.0 05/21/17 17:46 36.7 73 18 82/52 97 Nasal Cannula 3.0 05/21/17 17:32 86 17 82/52 (62) 05/21/17 17:16 84 18 60/46 (51) 85 Nasal Cannula 2.0 05/21/17 17:01 87 17 78/56 (63) 92 Nasal Cannula 3.0 05/21/17 16:16 92 18 98 05/21/17 16:14 36.9 05/21/17 16:12 86 22 68/53 100 Room Air Physical Exam General Appearance: WD/WN, + mild distress Eyes: normal inspection, PERRL, EOMI, sclerae normal Neck: supple, no adenopathy, thyroid normal, no JVD Respiratory/Chest: chest non-tender, lungs clear, normal breath sounds, no accessory muscle use Cardiovascular: no gallop, no JVD, no murmur, + tachycardia Abdomen: normal bowel sounds, non tender, soft Extremities: normal range of motion, non-tender, normal inspection Neurologic/Psychiatric: no motor/sensory deficits, alert, normal mood/affect, oriented x 3 Laboratory Results Last 24 Hours Test 05/21/17 16:18 05/21/17 17:12 05/21/17 21:44 05/21/17 21:47 Lactic Acid Level 2.1 mmol/L 2.5 mmol/L Bedside Glucose 213 mg/dl Total Creatine Kinase 39 U/L Creatine Kinase MB 0.6 ng/ml Creatine Kinase MB Ratio 1.5 Troponin I 0.147 ng/ml Bedside Glucose (other) 238 mg/dl Test 05/22/17 00:23 05/22/17 05:32 05/22/17 06:34 05/22/17 11:28 Bedside Glucose (other) 191 mg/dl 162 mg/dl 197 mg/dl White Blood Count 9.56 K/uL Red Blood Count 3.24 M/uL Hemoglobin 9.3 g/dL Hematocrit 29.1 % Mean Corpuscular Volume 89.8 fL Mean Corpuscular Hemoglobin 28.7 pg Mean Corpuscular Hemoglobin Concent 32.0 g/dl Platelet Count 74 K/uL Mean Platelet Volume 10.6 fL RDW Standard Deviation 51.8 fL RDW Coefficient of Variation 15.9 % Neutrophils % (Manual) 91.2 % Lymphocytes % (Manual) 5.2 % Monocytes % (Manual) 0.9 % Basophils % (Manual) 0.9 % Myelocytes % 0.9 % Blast Cells % 0.9 % Neutrophils # (Manual) 8.72 K/uL Total Absolute Neutrophils 8.72 K/uL Lymphocytes # (Manual) 0.50 K/uL Total Absolute Lymphocytes 0.50 K/uL Monocytes # (Manual) 0.09 K/uL Basophils # (Manual) 0.09 K/uL Myelocytes # 0.09 K/uL Blast Cells # 0.09 K/uL Blood Smear Review Red Blood Cell Morphology Unremarkable Prothrombin Time 20.5 SECONDS Prothromb Time International Ratio 1.9 Activated Partial Thromboplast Time 36.6 SECONDS Partial Thromboplastin Ratio 1.4 Sodium Level 134 mmol/L Potassium Level 4.2 mmol/L Chloride Level 97 mmol/L Carbon Dioxide Level 31 mmol/L Anion Gap 6.0 mmol/L Blood Urea Nitrogen 24 mg/dl Creatinine 4.60 mg/dl Est Creatinine Clear Calc Drug Dose 20.7 ml/min Estimated GFR () 14.8 Estimated GFR (Non- 12.8 BUN/Creatinine Ratio 5.1 Random Glucose 153 mg/dl Lactic Acid Level 1.7 mmol/L Calcium Level 8.1 mg/dl Phosphorus Level 2.8 mg/dl Magnesium Level 2.0 mg/dl Total Bilirubin 1.6 mg/dl Direct Bilirubin 0.9 mg/dl Aspartate Amino Transf (AST/SGOT) 14 U/L Alanine Aminotransferase (ALT/SGPT) 19 U/L Alkaline Phosphatase 144 U/L Total Creatine Kinase 36 U/L Creatine Kinase MB < 0.5 ng/ml Creatine Kinase MB Ratio Troponin I 0.162 ng/ml Total Protein 6.2 gm/dl Albumin 2.7 gm/dl Lipase 64 U/L Random Vancomycin Level 17.9 mcg/ml Test 05/22/17 14:25 Lactic Acid Level 1.5 mmol/L Assessment and Plan Severe sepsis/bilateral lower extremity cellulitis-- Admitted to the ICU, repeat LA WNL Continue on vancomycin IV and Zosyn IV day # 2 Weaned off levophed but still on phenylephrine Unlikely related to permacath, please leave in at this time, repeat blood cx Initial blood cx pos for gram pos cocci 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 Continue aspirin 81 mg daily, clopidogrel 75 mg by mouth daily, digoxin 0.125 mg by mouth daily. Hold carvedilol 12.5 mg by mouth twice a day, furosemide 40 mg by mouth daily and metoprolol succinate 25 mg by mouth daily. INR still supratherapeutic. Vit K x 1 given. Diabetes mellitus-- Continue Lantus 20 units subcutaneous every evening, and place on Accu-Cheks before meals and at bedtime with NovoLog coverage per scale. Hold glyburide 10 mg by mouth daily. GPN--continue gabapentin 800 mg by mouth 3 times a day. GI ppx with protonic Pt is FULL CODE
[2017-05-22] MEDS ORDERED: VANCOMYCIN IV SCH ×4 (16:00→21:00)
[2017-05-22] MEDS ORDERED: HEPARIN IV SCH ×4 (16:00→21:00)
--- NOTE | 2017-05-22 16:27 | ECHOCARDIOGRAM REPORT ---
*NOTICE TO RECEIVING LIBERTARIAN AGENCY This information is strictly Confidential and protected under [place] law. [place] law prohibits you from making any further disclosure of this information unless further disclosure is expressly permitted by the written consent of the person to whom it pertains or is authorized by law. A general authorization for the release of medical or other information is not sufficient for this purpose. Hospital accepts no responsibility if the information is made available to any other person, INCLUDING THE PATIENT. Interpretation Summary * Name: RUBINA SALAZAR Study Date: 05/22/2017 02:24 PM BP: 82/67 mmHg * Patient Location: .[facility]\S\E106\S\1 HR: 78 * : 1955 (M/d/yyyy) Gender: Male Height: 71 in * Age: 62 yrs Ethnicity: [place] Weight: 229 lb * Ordering Physician: Luis Angel Ronquillo * Referring Physician: UNKNOWN * Performed By: [facility] * * Reason For Study: Endocarditis * BSA: 2.2 m2 * Severe left ventricular systolic dysfunction. * Moderate right ventricular systolic dysfunction. * Biventricular dilatation. * Mild left atrial dilatation. * Trace - mild mitral regurgitation. * Mild - moderate tricuspid regurgitation. * Mildly elevated estimated right ventricular systolic pressure. * Elevated central venous pressure. * Compared to an echocardiogram of 04/30/2017 there has been no significant interval change. * The study was technically difficult. * The study was technically limited. * There is no evidence of a mass or vegetation. This does not rule out endocarditis. Procedure Details * A complete two-dimensional transthoracic echocardiogram was performed (2D, M-mode, Doppler and color flow Doppler). Left Ventricle * The left ventricle is mildly dilated. * There is normal left ventricular wall thickness. * Left ventricular systolic function is severely reduced. * Ejection Fraction = 25-30%. * Septal motion is consistent with post-operative state. * Global hypokinesis, most prominent in the mid to distal septum and basal inferior segments. Right Ventricle * The right ventricle is mildly dilated. * The right ventricular systolic function is reduced as assessed by tricuspid annular plane systolic excursion (TAPSE) (TAPSE <1.6 cm). * The right ventricular systolic function is moderately reduced. Atria * The left atrium is mildly dilated. * Right atrial size is normal. * No ASD detected; PFO is not assessed. Mitral Valve * The mitral valve is normal. * There is no mitral valve stenosis. * Trace - mild mitral regurgitation. Tricuspid Valve * The tricuspid valve is not well visualized. * There is no tricuspid stenosis. * There is mild to moderate tricuspid regurgitation. * Right ventricular systolic pressure is elevated at 30-40mmHg. Great Vessels * The aortic root is normal size. Pericardium/Pleural * There is no pericardial effusion. Great Vessels * The inferior vena cava is mildly dilated. MMode 2D Measurements and Calculations IVSd 10 cm IVSs 1.2 cm LVIDd 5.8 cm LVIDs 5.0 cm LVPWd 1.0 cm IVS/LVPW 0.97 FS 13.7 % EDV(Teich) 166.3 ml ESV(Teich) 118.5 ml EF(Teich) 28.8 % EDV(cubed) 194.8 ml ESV(cubed) 125.3 ml EF(cubed) 35.7 % % IVS thick 22.0 % LV mass(C)d 236.2 grams LV mass(C)dI 105.8 grams/m\S\2 CO(Teich) 3.5 l/min CI(Teich) 1.6 l/min/m\S\2 SV(Teich) 47.9 ml SI(Teich) 21.4 ml/m\S\2 CO(cubed) 5.1 l/min CI(cubed) 2.3 l/min/m\S\2 SV(cubed) 69.4 ml SI(cubed) 31.1 ml/m\S\2 Ao root diam 3.6 cm Ao root area 10.1 cm\S\2 ACS 1.9 cm LA dimension 4.2 cm asc Aorta Diam 3.1 cm LA/Ao 1.2 LVAd ap4 34.8 cm\S\2 LVLd ap4 8.9 cm EDV(MOD-sp4) 115.0 ml LVAs ap4 27.4 cm\S\2 LVLs ap4 8.5 cm ESV(MOD-sp4) 71.0 ml EF(MOD-sp4) 38.3 % LVAd ap2 33.8 cm\S\2 LVLd ap2 8.9 cm EDV(MOD-sp2) 107.0 ml LVAs ap2 24.6 cm\S\2 LVLs ap2 8.3 cm ESV(MOD-sp2) 63.0 ml EF(MOD-sp2) 41.1 % CO(MOD-sp4) 3.3 l/min CI(MOD-sp4) 1.5 l/min/m\S\2 SV(MOD-sp4) 44.0 ml SI(MOD-sp4) 19.7 ml/m\S\2 CO(MOD-sp2) 3.3 l/min CI(MOD-sp2) 1.5 l/min/m\S\2 SV(MOD-sp2) 44.0 ml SI(MOD-sp2) 19.7 ml/m\S\2 Doppler Measurements and Calculations MV E max aretha 136.0 cm/sec MV P1/2t max aretha 142.8 cm/sec MV P1/2t 59.6 msec MVA(P1/2t) 3.7 cm\S\2 MV dec slope 702.1 cm/sec\S\2 MV dec time 0.17 sec Ao V2 max 117.8 cm/sec Ao max PG 5.6 mmHg Ao max PG (full) 2.7 mmHg LV V1 max PG 2.8 mmHg LV V1 max 83.9 cm/sec PA V2 max 82.1 cm/sec PA max PG 2.7 mmHg TR max aretha 247.0 cm/sec
[2017-05-22] MEDS ORDERED: VANCOMYCIN IV PRN ×2 (18:15)
[2017-05-22] MEDS ORDERED: HEPARIN IV PRN ×2 (18:15)
[2017-05-22] MEDS: INSULIN GLARGINE SOLOSTAR 100 UNITS/ML 3 ML PEN SC SCH (21:44)
[2017-05-23] VITALS (122 sets, daily range): BP systolic 75–130; BP diastolic 37–72; PULSE 71–123; TEMP 36.8–37.5; O2SAT 82–100
[2017-05-23] MEDS: PHENYLEPHRINE HCL INJ 20 MG in DEXTROSE 5% 500ML 500 ML IV PRN ×3 (00:25→12:58)
[2017-05-23] MEDS: THIAMINE HCL IV SCH ×4 (00:55→18:09)
[2017-05-23] MEDS: SODIUM CHLORIDE 0.9% IV SCH ×4 (00:55→18:09)
[2017-05-23] MEDS: PIPERACILL/TAZOBAC IV 4.5 GM in DEXTROSE 5% 100ML 100 ML IV SCH ×2 (00:55→13:29)
[2017-05-23] MEDS: ASCORBIC ACID IV SCH ×4 (00:55→18:09)
[2017-05-23 05:49] LABS: HEMATOCRIT 27.4 % (42-52); MEAN CELL VOLUME 88.4 fL (80-100); MEAN CORPUSCULAR HEMOGLOBIN 28.4 pg (25-34); MEAN CORPUSCULAR HGB CONC 32.1 g/dl (32-36); WHITE BLOOD COUNT 7.79 K/uL (4.8-10.8)
[2017-05-23 05:50] LABS: MEAN PLATELET VOLUME 11.6 fL (7.4-10.4); PLATELET COUNT 95 K/uL (130-400)
[2017-05-23 06:00] LABS: INR 1.4 (0.9-1.1); PARTIAL THROMBOPLASTIN RATIO 1.2; PROTHROMBIN TIME (PATIENT) 15.6 SECONDS (9.0-12.0)
[2017-05-23] MEDS: INSULIN ASPART 100 UNITS/ML 3 ML PEN SC SCH ×4 (06:08→21:00)
[2017-05-23 06:26] LABS: BASO % 0.3 %; BASO ABS # 0.02 K/uL (0-0.2); COMPLETE YES; EOS % 2.2 %; LYMPH % 4.4 %; LYMPH ABS # 0.34 K/uL (1.2-3.4); MONO % 10.4 %; NEUT % 81.7 %
[2017-05-23 06:31] LABS: BUN/CREATININE RATIO 6.1 (10-20); CALCIUM 8.2 mg/dl (8.5-10.1); CREATININE 5.1 mg/dl (0.60-1.40); MAGNESIUM 1.8 mg/dl (1.8-2.4); POTASSIUM 3.8 mmol/L (3.5-5.1)
[2017-05-23] MEDS ORDERED: VANCOMYCIN IV ONE (07:00)
[2017-05-23] MEDS ORDERED: SODIUM CHLORIDE 0.9% IV ONE (07:00)
--- NOTE | 2017-05-23 07:10 | DIAGNOSTIC IMAGING REPORT ---
CHEST ONE VIEW PORTABLE CLINICAL HISTORY: SEPSIS COMPARISON STUDY: 05/22/2017 FINDINGS: The heart is enlarged. There are postsurgical changes of midline sternotomy. There is a right internal jugular dual-lumen central venous catheter. There is mild central pulmonary vascular congestion. There is no overt edema. There are no significant pleural effusions.[ There is no focal pulmonary consolidation. IMPRESSION: No change from the prior study. Cardiomegaly and mild pulmonary vascular congestion. Electronically signed by: Loki Ferreira M.D. 05/23/2017 7:08 AM Dictated Date/Time: 05/23/2017 7:07 AM
[2017-05-23] MEDS: NYSTATIN POWDER 15GM BTL EXT SCH ×3 (07:58→21:28)
[2017-05-23] MEDS: DOCUSATE SODIUM 100 MG CAP PO SCH (07:59)
[2017-05-23] MEDS: ASPIRIN 81 MG ECTAB PO SCH (07:59)
[2017-05-23] MEDS: DIGOXIN 0.125 MG TAB PO SCH (07:59)
[2017-05-23] MEDS: CLOPIDOGREL BISULFATE 75 MG TAB PO SCH (07:59)
[2017-05-23] MEDS: LACTULOSE SYRUP 10 GM/15 ML BTL 473 ML PO SCH ×3 (07:59→15:36)
[2017-05-23] MEDS: GABAPENTIN 800 MG TAB PO SCH ×3 (08:00→21:29)
[2017-05-23] MEDS: PANTOprazole SOD 40 MG TAB PO SCH (08:00)
[2017-05-23] MEDS ORDERED: EPOETIN ALFA 10,000 UNITS/ML VIAL IV SCH (09:00)
[2017-05-23] MEDS ORDERED: VANCOMYCIN IV PRN ×2 (10:15)
[2017-05-23] MEDS ORDERED: HEPARIN IV PRN ×2 (10:15)
--- NOTE | 2017-05-23 11:02 | Nephrology Progress Note ---
Nephrology Progress Note Date of Service May 23, 2017. Chief Complaint F/U for end-stage renal disease. Lor Bergeron was seen and examined in his room this morning. Has been tolerating dialysis well, blood pressure relatively soft but stable. Heart rate staying around 80s to 90s. Remained afebrile, lower extremity cellulitis seems much improved. In tunnel dialysis catheter exit site without any sign of infection. Overall feeling better but still just wants to go home. Review of Systems A complete review of systems was performed. Pertinent positives are noted above. All other systems are negative. Vital Signs Last 8 Hrs Date Time Temp Pulse Resp B/P (MAP) Pulse Ox O2 Delivery O2 Flow Rate FiO2 05/23/17 06:16 78 23 86/65 (72) 98 Nasal Cannula 3.0 05/23/17 06:01 79 23 83/61 (68) 97 Nasal Cannula 3.0 05/23/17 05:46 79 24 83/65 (71) 96 Nasal Cannula 3.0 05/23/17 05:31 81 18 79/60 (66) 97 Nasal Cannula 3.0 05/23/17 05:16 79 21 80/62 (68) 98 Nasal Cannula 3.0 05/23/17 05:01 79 21 81/64 (70) 96 Nasal Cannula 3.0 05/23/17 04:46 80 21 81/67 (72) 97 Nasal Cannula 3.0 05/23/17 04:32 90 21 88/66 (73) 97 Nasal Cannula 3.0 05/23/17 04:17 37.0 103 22 130/66 (87) 97 Nasal Cannula 3.0 05/23/17 04:00 Nasal Cannula 3.0 05/23/17 03:17 78 21 81/62 (68) 96 Nasal Cannula 3.0 05/23/17 03:01 77 20 89/62 (71) 98 Nasal Cannula 3.0 05/23/17 02:46 77 20 83/64 (70) 99 Nasal Cannula 3.0 05/23/17 02:31 76 20 86/63 (71) 97 Nasal Cannula 3.0 05/23/17 02:17 75 21 84/58 (67) 96 Nasal Cannula 3.0 05/23/17 02:01 76 24 96/69 (78) 100 Nasal Cannula 3.0 05/23/17 01:46 76 21 101/67 (78) 99 Nasal Cannula 3.0 05/23/17 01:31 76 18 92/66 (75) 99 Nasal Cannula 3.0 05/23/17 01:16 76 23 92/66 (75) 98 Nasal Cannula 3.0 05/23/17 01:01 76 24 98/67 (77) 99 Nasal Cannula 3.0 05/23/17 00:46 76 15 94/66 (75) 99 Nasal Cannula 3.0 05/23/17 00:31 76 23 98/72 (81) 99 Nasal Cannula 3.0 05/23/17 00:16 76 24 89/65 (73) 99 Nasal Cannula 3.0 05/23/17 00:01 Nasal Cannula 3.0 05/23/17 00:01 37.4 76 21 92/62 (72) 99 Nasal Cannula 3.0 Last Recorded Weight Weight (Kilograms): 103.900 Physical Exam GENERAL: middle aged male, AAA x 3 NECK: Supple, no JVD. RESPIRATORY: CTA CARDIOVASCULAR: tachycardic, rhythm irregular. ABDOMEN: soft, positive bowel sound EXTREMITY: B/L lower extremity edema erythema, edema and skin break , dressing in place, marked improvement in erythema NEURO: speech fluent. PSYCHIATRY: anxious. Family History No pertinent family history Social History Smokeless Tobacco Use: No Alcohol Use: none Drug Use: none Marital Status: Housing Status: lives with family Occupation: disabled Laboratory Results Past 24 Hours 05/23/17 05:35 Red Blood Count 3.10, Mean Corpuscular Volume 88.4, Mean Corpuscular Hemoglobin 28.4, Mean Corpuscular Hemoglobin Concent 32.1, Mean Platelet Volume 11.6, Neutrophils (%) (Auto) 81.7, Lymphocytes (%) (Auto) 4.4, Monocytes (%) (Auto) 10.4, Eosinophils (%) (Auto) 2.2, Basophils (%) (Auto) 0.3, Neutrophils # (Auto ) 6.37, Lymphocytes # (Auto) 0.34, Monocytes # (Auto) 0.81, Eosinophils # (Auto ) 0.17, Basophils # (Auto) 0.02 05/23/17 05:35 Test 05/22/17 11:28 05/22/17 14:25 05/22/17 21:43 8/31/17 05:35 Bedside Glucose (other) 197 mg/dl (70-99) 159 mg/dl (70-99) Lactic Acid Level 1.5 mmol/L (0.4-2.0) White Blood Count 7.79 K/uL (4.8-10.8) Red Blood Count 3.10 M/uL (4.7-6.1) Hemoglobin 8.8 g/dL (14.0-18.0) Hematocrit 27.4 % (42-52) Mean Corpuscular Volume 88.4 fL (80-100) Mean Corpuscular Hemoglobin 28.4 pg (25-34) Mean Corpuscular Hemoglobin Concent 32.1 g/dl (32-36) Platelet Count 95 K/uL (130-400) Mean Platelet Volume 11.6 fL (7.4-10.4) Neutrophils (%) (Auto) 81.7 % Lymphocytes (%) (Auto) 4.4 % Monocytes (%) (Auto) 10.4 % Eosinophils (%) (Auto) 2.2 % Basophils (%) (Auto) 0.3 % Neutrophils # (Auto) 6.37 K/uL (1.4-6.5) Lymphocytes # (Auto) 0.34 K/uL (1.2-3.4) Monocytes # (Auto) 0.81 K/uL (0.11-0.59) Eosinophils # (Auto) 0.17 K/uL (0-0.5) Basophils # (Auto) 0.02 K/uL (0-0.2) RDW Standard Deviation 51.7 fL (36.4-46.3) RDW Coefficient of Variation 16.1 % (11.5-14.5) Immature Granulocyte % (Auto) 1.0 % Immature Granulocyte # (Auto) 0.08 K/uL (0.00-0.02) Red Blood Cell Morphology Unremarkable Prothrombin Time 15.6 SECONDS (9.0-12.0) Prothromb Time International Ratio 1.4 (0.9-1.1) Activated Partial Thromboplast Time 31.2 SECONDS (21.0-31.0) Partial Thromboplastin Ratio 1.2 Anion Gap 9.0 mmol/L (3-11) Est Creatinine Clear Calc Drug Dose 18.7 ml/min Estimated GFR () 13.1 Estimated GFR (Non- 11.3 BUN/Creatinine Ratio 6.1 (10-20) Calcium Level 8.2 mg/dl (8.5-10.1) Magnesium Level 1.8 mg/dl (1.8-2.4) Total Bilirubin 1.3 mg/dl (0.2-1) Direct Bilirubin 0.9 mg/dl (0-0.2) Aspartate Amino Transf (AST/SGOT) 17 U/L (15-37) Alanine Aminotransferase (ALT/SGPT) 18 U/L (12-78) Alkaline Phosphatase 133 U/L (45-117) Total Protein 5.8 gm/dl (6.4-8.2) Albumin 2.4 gm/dl (3.4-5.0) Lipase 82 U/L (73-393) Random Vancomycin Level 12.5 mcg/ml Test 05/23/17 06:09 Bedside Glucose (other) 117 mg/dl (70-99) Allergies Coded Allergies: No Known Allergies (Unverified , 05/21/17) Medications Current Inpatient Medications Medications (Trade) Dose Ordered Sig/Mikie Route Start Time Stop Time Status Last Admin Dose Admin Vancomycin HCl (Consult) 1 ea UD PRN N/A 05/21/17 14:45 06/20/17 14:44 Acetaminophen (Tylenol Tab) 650 mg Q4H PRN PO 05/21/17 15:00 06/20/17 14:59 05/22/17 17:09 650 MG Piperacillin Sod/ Tazobactam Sod 4.5 gm/Dextrose 120 ml @ 30 mls/hr Q12@0000,1200 IV 05/22/17 00:00 06/01/17 00:00 05/23/17 00:55 30 MLS/HR Aspirin (Ecotrin Tab) 81 mg QAM PO 05/22/17 09:00 06/21/17 08:59 05/22/17 07:44 81 MG Clopidogrel Bisulfate (plAVix TAB) 75 mg DAILY PO 05/22/17 09:00 06/21/17 08:59 05/22/17 07:44 75 MG Digoxin (Lanoxin Tab) 0.125 mg DAILY PO 05/22/17 09:00 06/21/17 08:59 05/22/17 07:45 0.125 MG Docusate Sodium (coLACE CAP) 100 mg DAILY PO 05/22/17 09:00 06/21/17 08:59 05/22/17 07:45 100 MG Gabapentin (Neurontin Tab) 800 mg TID PO 05/21/17 21:00 06/20/17 20:59 05/22/17 21:40 800 MG Insulin Glargine (Lantus Solostar Pen) 20 units QPM SC 05/21/17 21:00 06/20/17 20:59 05/22/17 21:44 20 UNITS Lactulose (Chronulac Syrup) 10 gm QID PO 05/21/17 17:00 06/20/17 16:59 05/22/17 21:40 10 GM Lorazepam (Ativan Tab) 0.5 mg Q6H PRN PO 05/21/17 15:15 06/20/17 15:14 05/22/17 12:00 0.5 MG Acetaminophen/ Hydrocodone Bitart ([place] 5/325 Tab) 1 tab Q4H PRN PO 05/21/17 16:00 06/04/17 15:59 Insulin Aspart (novoLOG ASPART) SLIDING SCALE If C... ACHS SC 05/21/17 16:00 06/20/17 15:59 05/22/17 21:43 1 UNITS Glucose (Glucose 40% Gel) UD PRN PO 05/21/17 15:15 06/20/17 15:14 Glucose (Glucose Chew Tab) 1 tabs UD PRN PO 05/21/17 15:15 06/20/17 15:14 Dextrose (Dextrose 50% 50ML Syringe) 50 ml UD PRN IV 05/21/17 15:15 06/20/17 15:14 Glucagon (Glucagon Inj) 1 mg UD PRN SQ 05/21/17 15:15 06/20/17 15:14 Piperacillin Sod/ Tazobactam Sod (Consult) 1 ea UD PRN N/A 05/21/17 16:15 06/20/17 16:14 Phenylephrine HCl 20 mg/Dextrose 502 ml @ 0 mls/hr Q0M PRN IV 05/21/17 20:00 06/20/17 19:59 05/23/17 06:10 76.5 MLS/HR Norepinephrine Bitartrate 8 mg/ Dextrose 508 ml @ 0 mls/hr Q0M PRN IV 05/22/17 04:30 06/21/17 04:29 Epoetin Omi (Procrit Inj) 10,000 units TODAY@0900 IV 05/23/17 09:00 05/23/17 18:00 Nystatin (Mycostatin Powder) 1 appln TID EXT 05/22/17 14:00 06/21/17 13:59 05/22/17 21:40 1 APPLN Ascorbic Acid 1500 mg/Thiamine HCl 50 mg/Sodium Chloride 103.5 ml @ 206 mls/hr Q6H IV 05/22/17 12:00 05/26/17 06:31 05/23/17 06:05 206 MLS/HR Pantoprazole Sodium (Protonix Tab) 40 mg QAM PO 05/22/17 14:00 06/21/17 13:59 05/22/17 14:05 40 MG Warfarin Sodium (Coumadin Tab) 5 mg DAILY@16 PO 05/22/17 16:00 06/21/17 15:59 05/22/17 15:46 5 MG Vancomycin HCl 5 mg/Heparin Sodium (Porcine) 2000 unit/Syringe 2 ml @ 0 mls/min UD PRN IV 05/22/17 18:15 05/24/17 18:14 05/22/17 19:43 1.6 MLS/MIN Heparin Sodium (Porcine) (Heparin 10 Unit/ ml 5 ml Flush) 5 ml PRN PRN FLUSH 05/23/17 01:00 06/22/17 00:59 Vancomycin HCl 750 mg/Sodium Chloride 115 ml @ 54 mls/hr NOW ONCE IV 05/23/17 07:00 05/23/17 09:07 Otis Bergeron is a 62-year-old gentlemen with ESRD secondary to diabetic nephropathy, on hemodialysis Saturday, , Saturday via right IJ tunnel dialysis catheter. Has hypertension, diabetes, coronary artery disease, CHF with right- sided heart failure. Was sent to the emergency room from dialysis unit as he was found to have rapid heart rate, lethargic and was febrile after 2 hours of dialysis treatment. His tunnel dialysis catheter area was otherwise normal, nontender without any sign of infection, blood culture was drawn and he was sent to emergency room for further evaluation. Has was found to hae B/L LE cellulitis He has atrial flutter with rapid ventricular rate, recently had admission at [facility] twice, he was discharged on carvedilol 12.5 milligram twice a day , digoxin 125 microgram daily and Coumadin. [employer] recommended ROBERTO and cardioversion because of for recurrent admission and noncompliance with medication however he refused. On admission his chest x-ray was unremarkable, EKG showed a flutter with RVR, digoxin level was 1.0 and INR was 5.1. Recommendations --continue dialysis with 3 K bath, plan for minimum UF as patient continues to be hypotensive and tachycardic on pressor, will aim for 1-1.5 L if blood pressure tolerates -- left UE nephrology precaution for future vascular access -- TDC area without any sign of infection, unlikely to be the source of bacteremia, would keep the catheter in place for now and repeat blood cx. 2D echo was negative for vegetation. --agree with continuing empiric antibiotic as managed by intensive care unit -- hold off on PD catheter for now --continue on Nephrocaps and calcitriol -- hold phosphate binder as patient having poor p.o. intake and phosphate level has been normal -- start on boost 1 can 3 times a day and encourage protein intake -- MARCIO [id number] units on 05/23/17 --hold off on IV iron considering bacteremia
[2017-05-23] MEDS: HEPARIN SOD 5000 UNIT/0.5 ML CARP SQ SCH ×2 (11:32→22:37)
--- NOTE | 2017-05-23 11:36 | Critical Care Progress Note ---
Critical Care Progress Note Date of Service May 23, 2017. ICU Day ICU Day Number: [address] Berkowitz Subjective Patient with chills overnight; however did not spike any fevers and was afebrile Says he is feeling much better and that his appetite has improved Has not urinated yet and would like to urinate as his bladder feels full Denies any redness, pain or erythema around port site Denies any leg pain or worsening erythema around leg wounds Denies any fevers, or sweats Denies any chest pain, palpitations or shortness of breath Denies any itches or rashes Denies any abdominal pain, nausea, vomiting or diarrhea Objective General Appearance: mild distress, appears comfortable, AAA x3 Head: normocephalic Eyes: PERRLA, no discharge, EOMI ENT: poor dentition Neck: no tenderness, trachea midline, supple, no thyromegaly, no lymphadenopathy Respiratory: breath sounds normal, clear to auscultation Cardiovasular: irregular rate, abnormal rhythm, abnormal pulses (weak peripheral pulses), other (distant heart sounds, permacath inferior to right clavicle and without any surrounding erythema or tenderness) Abdomen: mild tenderness in lower abdomen, normal bowel sounds, no rebound, no masses, no guarding Lower Extremities: other (bilateral lower extremity +1 edema and skin breakdown ---> improvement in erythema since yesterday ) Neuro: alert, oriented x 3, normal motor exam, normal speech Current SOFA Score SOFA Score Response (Comments) Value Platelets (x10) < 100 2 Bilirubin (mg/dL) 1.2 - 1.9 1 Luz Coma Score 15 0 Level of Hypotension MAP less than 70 1 Creatinine (mg/dL) > 5.0 4 Total 8 Assessment & Plan 62 year old male with ESRD, DM, Aflutter, CHF and CAD s/p CABG who was admitted to the ICU due to sepsis leading to persistent hypotension and the need for vasopressor support. Found to have positive blood cultures with staph aureus. ID - Patients meets SIRS criteria - Blood cultures 2/2 staph aureus, sensitivities pending - Repeat blood cultures of permacath and peripheral line still pending - Permacath cultures from outpatient line still pending --> will follow up with nephro on results this afternoon - Echo did not show any vegetations - On Vancomycin (vanc trough 12.5) and Zosyn - Cap lock permacath with vanc and hep. Hep lock at 5000 units /0.5ml. Vanc at 5mg/ml - Hx of MRSA, contact precautions - Wound care consult--> wound clinically improving - Likely source lower extremities vs permacath vs urinary source - Patient with fungal infection in groin, will treat with nystatin powder Cardiac - Atrial flutter - INR 1.4 today, will increase warfarin to 7mg today and continue to follow INR , - will reverse anticoagulation if decision is made to remove permacath - Continue dig .125 PO qAM. Carvedilol and toprol xl held for now - Will check dig level - CAD - hx of x5 CABG for [place] 4 years ago in [place]. - Continue aspirin and plavix. troponins .147 and .167, likely demand ischaemia from sepsis - CHD - echo 05/09 showed EF of 20-25% with severe global hypokinesis and severe left ventricular dysfunction/severe right ventricular dysfunction. - Hold lasix as blood pressure low. monitor I/O's - Hypotension - stopped levophed and continue phenylephrine .5 for MAP of 60 Renal - ESRD had a permacath placed 3 weeks ago[address] with Dr. Max. Dr Max wants to keep permacath in place for now and does not think port is source of infection. - Goes to dialysis , and Saturday - Nephrology consulted - Lactulose daily - Continue nephrocaps and calcitriol - EPO administered with dialysis as long as Hgb<10 - Plan for HD - Give Vitamin C IV Endo - Last HbA1c 8.9 on 05/13/17 - Insulin glargine 20 units QPM and insulin sliding scale with carb counting - Glucose of 197, 159 and 117 - Hx of peripheral neuropathy, continue gabapentin TID - Glyburide held due to ESRD GI - On colace once daily - Continue renal and diabetic diet - Fluid restrict to 1200ml Neuro - CAM - - Ativan 0.5 mg PRN for anxiety - [place] for pain Dispo - PT/OT ordered - FULL CODE Resident Physician Supervision Note: Dr. Shen was resident physician during care of patient. I separately evaluated patient and did history and exam. I discussed the case with the resident and generally agree with the findings and plan. Patient continues to require vasoactive medication for support of blood pressure. However pressor requirements have stabilized, no abdominal pain or cramping with food will allow diet secondary to stable vasoactive medication requirements. We'll continue to use catheter salvage techniques, speciation is now staph aureus waiting for sensitivities to confirm MRSA presence or not, again however stress we are not convinced that the source is the permacath and patient has extenuating circumstances which preclude catheter removal at this time. I have personally spent 40 minutes of critical care time in the direct management of this patient. This is a life/limb threatening event. This includes time spent evaluating patient, direct bedside care, chart review, placing orders, interpretation of diagnostic studies, discussion with consultants, patient, and family members, as well as other required patient management activities. This time is exclusive of all separately billable procedures, and teaching time and separate from and in addition to any other critical care service time. Documented By: Juventino Berkowitz DO Consults & Procedures Consultants: Dr. Winter Gaston Procedures: Left femoral line Data Medications: Current Inpatient Medications Medications (Trade) Dose Ordered Sig/Mikie Route Start Time Stop Time Status Last Admin Dose Admin Vancomycin HCl (Consult) 1 ea UD PRN N/A 05/21/17 14:45 06/20/17 14:44 Acetaminophen (Tylenol Tab) 650 mg Q4H PRN PO 05/21/17 15:00 06/20/17 14:59 05/22/17 17:09 650 MG Piperacillin Sod/ Tazobactam Sod 4.5 gm/Dextrose 120 ml @ 30 mls/hr Q12@0000,1200 IV 05/22/17 00:00 06/01/17 00:00 05/23/17 00:55 30 MLS/HR Aspirin (Ecotrin Tab) 81 mg QAM PO 05/22/17 09:00 06/21/17 08:59 05/23/17 07:59 81 MG Clopidogrel Bisulfate (plAVix TAB) 75 mg DAILY PO 05/22/17 09:00 06/21/17 08:59 05/23/17 07:59 75 MG Digoxin (Lanoxin Tab) 0.125 mg DAILY PO 05/22/17 09:00 06/21/17 08:59 05/23/17 07:59 0.125 MG Docusate Sodium (coLACE CAP) 100 mg DAILY PO 05/22/17 09:00 06/21/17 08:59 05/23/17 07:59 100 MG Gabapentin (Neurontin Tab) 800 mg TID PO 05/21/17 21:00 06/20/17 20:59 05/23/17 08:00 800 MG Insulin Glargine (Lantus Solostar Pen) 20 units QPM SC 05/21/17 21:00 06/20/17 20:59 05/22/17 21:44 20 UNITS Lactulose (Chronulac Syrup) 10 gm QID PO 05/21/17 17:00 06/20/17 16:59 05/23/17 07:59 10 GM Lorazepam (Ativan Tab) 0.5 mg Q6H PRN PO 05/21/17 15:15 06/20/17 15:14 05/22/17 12:00 0.5 MG Acetaminophen/ Hydrocodone Bitart ([place] 5/325 Tab) 1 tab Q4H PRN PO 05/21/17 16:00 06/04/17 15:59 Insulin Aspart (novoLOG ASPART) SLIDING SCALE If C... ACHS SC 05/21/17 16:00 06/20/17 15:59 05/22/17 21:43 1 UNITS Glucose (Glucose 40% Gel) UD PRN PO 05/21/17 15:15 06/20/17 15:14 Glucose (Glucose Chew Tab) 1 tabs UD PRN PO 05/21/17 15:15 06/20/17 15:14 Dextrose (Dextrose 50% 50ML Syringe) 50 ml UD PRN IV 05/21/17 15:15 06/20/17 15:14 Glucagon (Glucagon Inj) 1 mg UD PRN SQ 05/21/17 15:15 06/20/17 15:14 Piperacillin Sod/ Tazobactam Sod (Consult) 1 ea UD PRN N/A 05/21/17 16:15 06/20/17 16:14 Phenylephrine HCl 20 mg/Dextrose 502 ml @ 0 mls/hr Q0M PRN IV 05/21/17 20:00 06/20/17 19:59 05/23/17 06:10 76.5 MLS/HR Epoetin Omi (Procrit Inj) 10,000 units TODAY@0900 IV 05/23/17 09:00 05/23/17 18:00 Nystatin (Mycostatin Powder) 1 appln TID EXT 05/22/17 14:00 06/21/17 13:59 05/23/17 07:58 1 APPLN Ascorbic Acid 1500 mg/Thiamine HCl 50 mg/Sodium Chloride 103.5 ml @ 206 mls/hr Q6H IV 05/22/17 12:00 05/26/17 06:31 05/23/17 06:05 206 MLS/HR Pantoprazole Sodium (Protonix Tab) 40 mg QAM PO 05/22/17 14:00 06/21/17 13:59 05/23/17 08:00 40 MG Warfarin Sodium (Coumadin Tab) 5 mg DAILY@16 PO 05/22/17 16:00 06/21/17 15:59 Future hold 05/22/17 15:46 5 MG Heparin Sodium (Porcine) (Heparin 10 Unit/ ml 5 ml Flush) 5 ml PRN PRN FLUSH 05/23/17 01:00 06/22/17 00:59 Vancomycin HCl 10 mg/Heparin Sodium (Porcine) 79791 unit/Syringe 2 ml @ 0 mls/min UD PRN IV 05/23/17 10:15 05/25/17 10:14 Heparin Sodium (Porcine) (Heparin Sq 5000 Unit/0.5ml) 5,000 unit Q12H SQ 05/23/17 11:00 06/22/17 10:59 Warfarin Sodium (Coumadin Tab) 7.5 mg TODAY@1600 ONCE PO 05/23/17 16:00 05/23/17 16:01 Vital Signs: Date Time Temp Pulse Resp B/P (MAP) Pulse Ox O2 Delivery O2 Flow Rate FiO2 05/23/17 10:45 95 90/61 05/23/17 10:30 100 91/64 05/23/17 10:15 96 97/60 05/23/17 10:00 87 98/68 05/23/17 09:46 87 98/68 (78) 05/23/17 09:45 76 98/68 05/23/17 09:31 82 93/58 (70) 100 05/23/17 09:30 88 93/58 05/23/17 09:16 81 90/55 (67) 92 05/23/17 09:15 87 90/55 05/23/17 09:07 85 98/61 (73) 98 05/23/17 09:05 77 98/61 05/23/17 09:01 78 100/62 (75) 100 05/23/17 09:00 79 100 05/23/17 08:58 37.2 77 100/62 (75) 05/23/17 08:48 102 88/63 (71) 99 05/23/17 08:37 103 106/61 (76) 98 05/23/17 08:15 Nasal Cannula 3.0 05/23/17 08:01 107 37 82/54 (63) 92 05/23/17 08:00 107 28 92 05/23/17 07:59 102 05/23/17 07:47 37.1 110 26 81/58 (66) 94 05/23/17 07:31 80 22 82/58 (66) 92 05/23/17 07:16 79 23 80/57 (65) 94 05/23/17 07:01 79 26 85/58 (67) 97 05/23/17 07:00 79 27 98 05/23/17 06:16 78 23 86/65 (72) 98 Nasal Cannula 3.0 05/23/17 06:01 79 23 83/61 (68) 97 Nasal Cannula 3.0 05/23/17 05:46 79 24 83/65 (71) 96 Nasal Cannula 3.0 05/23/17 05:31 81 18 79/60 (66) 97 Nasal Cannula 3.0 05/23/17 05:16 79 21 80/62 (68) 98 Nasal Cannula 3.0 05/23/17 05:01 79 21 81/64 (70) 96 Nasal Cannula 3.0 05/23/17 04:46 80 21 81/67 (72) 97 Nasal Cannula 3.0 05/23/17 04:32 90 21 88/66 (73) 97 Nasal Cannula 3.0 05/23/17 04:17 37.0 103 22 130/66 (87) 97 Nasal Cannula 3.0 05/23/17 04:00 Nasal Cannula 3.0 05/23/17 03:17 78 21 81/62 (68) 96 Nasal Cannula 3.0 05/23/17 03:01 77 20 89/62 (71) 98 Nasal Cannula 3.0 05/23/17 02:46 77 20 83/64 (70) 99 Nasal Cannula 3.0 05/23/17 02:31 76 20 86/63 (71) 97 Nasal Cannula 3.0 05/23/17 02:17 75 21 84/58 (67) 96 Nasal Cannula 3.0 05/23/17 02:01 76 24 96/69 (78) 100 Nasal Cannula 3.0 05/23/17 01:46 76 21 101/67 (78) 99 Nasal Cannula 3.0 05/23/17 01:31 76 18 92/66 (75) 99 Nasal Cannula 3.0 05/23/17 01:16 76 23 92/66 (75) 98 Nasal Cannula 3.0 05/23/17 01:01 76 24 98/67 (77) 99 Nasal Cannula 3.0 05/23/17 00:46 76 15 94/66 (75) 99 Nasal Cannula 3.0 05/23/17 00:31 76 23 98/72 (81) 99 Nasal Cannula 3.0 05/23/17 00:16 76 24 89/65 (73) 99 Nasal Cannula 3.0 05/23/17 00:01 Nasal Cannula 3.0 05/23/17 00:01 37.4 76 21 92/62 (72) 99 Nasal Cannula 3.0 05/22/17 23:46 76 21 98/64 (75) 99 Nasal Cannula 3.0 05/22/17 23:41 76 21 94/64 (74) 100 Nasal Cannula 3.0 05/22/17 23:31 76 21 94/64 (74) 100 Nasal Cannula 3.0 05/22/17 23:16 77 21 93/61 (72) 99 Nasal Cannula 3.0 05/22/17 23:01 76 21 90/65 (73) 100 Nasal Cannula 3.0 05/22/17 22:47 76 20 92/58 (69) 100 Nasal Cannula 3.0 05/22/17 22:31 76 21 84/62 (69) 99 Nasal Cannula 3.0 05/22/17 22:16 76 21 78/62 (67) 98 Nasal Cannula 3.0 05/22/17 22:01 76 20 82/62 (69) 98 Nasal Cannula 3.0 05/22/17 21:46 76 21 86/61 (69) 99 Nasal Cannula 3.0 05/22/17 21:37 76 21 89/63 (72) 99 Nasal Cannula 3.0 05/22/17 21:17 77 21 93/53 (66) 99 Nasal Cannula 3.0 05/22/17 21:01 77 24 83/52 (62) 100 Nasal Cannula 3.0 05/22/17 20:46 77 24 78/56 (63) 99 Nasal Cannula 3.0 05/22/17 20:31 76 24 82/60 (67) 99 Nasal Cannula 3.0 05/22/17 20:17 77 23 78/57 (64) 97 Nasal Cannula 3.0 05/22/17 20:01 37.5 77 23 80/60 (67) 98 Nasal Cannula 3.0 05/22/17 20:00 Nasal Cannula 3.0 05/22/17 19:59 77 21 81/58 (66) 98 Nasal Cannula 3.0 05/22/17 19:46 77 22 77/60 (66) 97 Nasal Cannula 3.0 05/22/17 19:31 78 22 75/55 (62) 97 Nasal Cannula 3.0 05/22/17 19:16 78 23 69/55 (60) 96 Nasal Cannula 3.0 05/22/17 19:01 78 23 73/53 (60) 96 Nasal Cannula 3.0 05/22/17 18:17 88 21 84/59 (67) 98 05/22/17 18:15 89 22 97 05/22/17 18:05 103 24 94/73 (80) 96 05/22/17 18:00 98 23 96 Nasal Cannula 3.0 05/22/17 17:45 102 23 96 05/22/17 17:30 126 19 97 05/22/17 17:16 121 20 /45 (30) 97 05/22/17 17:15 104 18 96 05/22/17 17:01 78 25 88/62 (71) 96 05/22/17 17:00 78 22 97 05/22/17 16:45 75 21 96 05/22/17 16:31 79 23 104/58 (73) 99 05/22/17 16:30 75 20 99 05/22/17 16:16 74 19 84/54 (64) 99 05/22/17 16:15 75 15 98 05/22/17 16:01 37.1 75 20 92/62 (72) 98 Nasal Cannula 3.0 05/22/17 16:00 96 Nasal Cannula 3.0 05/22/17 16:00 75 20 98 05/22/17 15:46 75 19 90/64 (73) 100 05/22/17 15:45 75 18 100 05/22/17 15:31 75 20 96/60 (72) 100 05/22/17 15:30 75 19 100 05/22/17 15:16 75 21 95/71 (79) 99 05/22/17 15:15 75 21 100 05/22/17 15:01 75 21 94/65 (75) 100 05/22/17 15:00 73 22 100 05/22/17 14:46 74 20 88/64 (72) 99 05/22/17 14:45 74 19 99 05/22/17 14:31 74 19 93/62 (72) 98 05/22/17 14:30 74 20 96 Nasal Cannula 3.0 05/22/17 14:16 74 23 78/62 (67) 97 05/22/17 14:15 75 18 100 05/22/17 14:02 75 19 84/42 (56) 100 05/22/17 14:00 75 21 100 Nasal Cannula 3.0 05/22/17 13:46 74 19 95/63 (74) 99 05/22/17 13:45 74 17 100 05/22/17 13:31 74 20 101/65 (77) 100 05/22/17 13:30 75 17 100 05/22/17 13:16 74 19 94/67 (76) 100 05/22/17 13:15 74 20 100 05/22/17 13:01 74 20 99/72 (81) 100 05/22/17 13:00 74 19 100 05/22/17 12:46 74 21 107/71 (83) 99 05/22/17 12:45 74 19 99 Nasal Cannula 3.0 05/22/17 12:31 88 21 95/70 (78) 91 05/22/17 12:30 91 21 05/22/17 12:17 78 16 78/57 (64) 92 05/22/17 12:15 80 21 89 05/22/17 12:00 74 26 84 05/22/17 11:30 37.1 78 28 100 Nasal Cannula 3.0 05/22/17 11:30 97 Nasal Cannula 3.0 05/22/17 11:16 74 21 82/67 (72) 100 05/22/17 11:15 74 17 100 Laboratory Results: Last 24 Hours Test 05/22/17 11:28 05/22/17 14:25 05/22/17 21:43 05/23/17 05:35 Bedside Glucose (other) 197 mg/dl 159 mg/dl Lactic Acid Level 1.5 mmol/L White Blood Count 7.79 K/uL Red Blood Count 3.10 M/uL Hemoglobin 8.8 g/dL Hematocrit 27.4 % Mean Corpuscular Volume 88.4 fL Mean Corpuscular Hemoglobin 28.4 pg Mean Corpuscular Hemoglobin Concent 32.1 g/dl Platelet Count 95 K/uL Mean Platelet Volume 11.6 fL Neutrophils (%) (Auto) 81.7 % Lymphocytes (%) (Auto) 4.4 % Monocytes (%) (Auto) 10.4 % Eosinophils (%) (Auto) 2.2 % Basophils (%) (Auto) 0.3 % Neutrophils # (Auto) 6.37 K/uL Lymphocytes # (Auto) 0.34 K/uL Monocytes # (Auto) 0.81 K/uL Eosinophils # (Auto) 0.17 K/uL Basophils # (Auto) 0.02 K/uL RDW Standard Deviation 51.7 fL RDW Coefficient of Variation 16.1 % Immature Granulocyte % (Auto) 1.0 % Immature Granulocyte # (Auto) 0.08 K/uL Red Blood Cell Morphology Unremarkable Prothrombin Time 15.6 SECONDS Prothromb Time International Ratio 1.4 Activated Partial Thromboplast Time 31.2 SECONDS Partial Thromboplastin Ratio 1.2 Sodium Level 134 mmol/L Potassium Level 3.8 mmol/L Chloride Level 95 mmol/L Carbon Dioxide Level 30 mmol/L Anion Gap 9.0 mmol/L Blood Urea Nitrogen 31 mg/dl Creatinine 5.10 mg/dl Est Creatinine Clear Calc Drug Dose 18.7 ml/min Estimated GFR () 13.1 Estimated GFR (Non- 11.3 BUN/Creatinine Ratio 6.1 Random Glucose 119 mg/dl Calcium Level 8.2 mg/dl Magnesium Level 1.8 mg/dl Total Bilirubin 1.3 mg/dl Direct Bilirubin 0.9 mg/dl Aspartate Amino Transf (AST/SGOT) 17 U/L Alanine Aminotransferase (ALT/SGPT) 18 U/L Alkaline Phosphatase 133 U/L Total Protein 5.8 gm/dl Albumin 2.4 gm/dl Lipase 82 U/L Random Vancomycin Level 12.5 mcg/ml Test 05/23/17 06:09 Bedside Glucose (other) 117 mg/dl
[2017-05-23] MEDS ORDERED: VANCOMYCIN INJ 250 MG in SODIUM CHLORIDE 0.9% 100ML 100 ML IV ONE (13:00)
--- NOTE | 2017-05-23 15:06 | Pharmacy Progress Note ---
Pharmacy Abx Dose Short Note Date of Service May 23, 2017. Assessment & Plan Assessment * 62 year old male admitted secondary to hypotension, tachycardia and fever while at dialysis - sepsis secondary to skin/skin structure or HD catheter infxn. * He remains on pressor therapy at this time, norepi weaned off yesterday but remained on phenylephrine this AM * Blood cultures x 2 are growing staph aureus - still awaiting sensitivities; nasal swab is MRSA +; a culture was drawn from the HD catheter however we do not have those results. * He has a h/o lower extremity wound cx that grew enterococcus faecalis + serratia marcescens; although vancomycin PAWEL was 4 for enterococcus the organism was also penicillin sensitive; serratia was pansensitive * Lower extremity cellulitis reported to be improved today. * He is current receiving Vancomycin + Zosyn which should be appropriate coverage for likely pathogens * He is also receiving ABX lock therapy (vancomycin 5mg/mL + heparin 5000units/ mL) in an attempt to salvage HD catheter if this is in fact the source of bacteremia. [place] vancomycin conc should be 1000x higher than the PAWEL of the infecting organism. Heparin conc should be between 2000-5000units/mL when instilling abx lock therapy in an infected HD catheter. Plan Vancomycin * Random level of 12.5 mcg/mL is subtherapeutic for bacteremia / sepsis. His level dropped from 17.9 to 12.5 in 24 hours with no hemodialysis treatment. Today it is reported that the patient does urinate twice daily, perhaps he is clearing vancomycin renally as well as small non-renal routes of elimination. * 750mg IV x 1 dose given the AM to bump level up to a therapeutic range. * He did receive hemodialysis this AM as well which likely removed ~30% of body vancomycin conc. As a result I have also ordered an additional 250mg to be given after HD today. * Will recheck random level w/ AM labs tomorrow * Goal is to redose when level 15-20mcg/mL or anticipated to fall within this range after HD Zosyn * 4.5gm IV extended infusion Q 12 hrs is appropriate for eCrCl less than 20cc/ min or hemodialysis Pharmacy will continue to follow and will adjust dose/frequency as necessary. Thank you.
--- NOTE | 2017-05-23 15:26 | Progress Note ---
Subjective Date of Service: May 23, 2017. Subjective Pt evaluation today including: conversation w/ patient, physical exam, chart review, lab review, review of studies, review of inpatient medication list Pt resting comfortably in bed No discomfort noted No acute events overnight Problem List Medical Problems: (1) Atrial fibrillation with rapid ventricular response Status: Acute (2) Atrial fibrillation with RVR Status: Acute (3) Cellulitis Status: Acute (4) Dehydration Status: Acute (5) Sepsis Status: Acute Review of Systems Constitutional: No fever, No chills, No sweats, No weakness Eyes: No worsening of vision, No eye pain, No redness, No discharge Respiratory: No cough, No sputum, No wheezing, No shortness of breath, No dyspnea on exertion Cardiac: No chest pain, No orthopnea, No PND, No edema, No claudication Abdomen: No pain, No nausea, No vomiting, No diarrhea Musculoskeletal: No joint pain, No muscle pain, No swelling, No calf pain Male : No dysuria, No urinary frequency, No incontinence, No slowing stream Neurologic: No memory loss, No paralysis, No weakness, No numbness/tingling Psychiatric: No depression symptoms, No anhedonism, No anxiety, No insomnia Endo: No fatigue, No excessive thirst Skin: No rash, No itch Objective Vital Signs Date Time Temp Pulse Resp B/P (MAP) Pulse Ox O2 Delivery O2 Flow Rate FiO2 05/23/17 12:30 77 95/53 05/23/17 12:15 Nasal Cannula 3.0 05/23/17 12:15 84 99/62 05/23/17 12:01 37.0 86 18 112/58 (76) 99 05/23/17 12:00 92 112/58 05/23/17 12:00 91 18 97 05/23/17 11:46 103 18 97/53 (68) 90 05/23/17 11:45 91 97/53 05/23/17 11:45 83 20 95 05/23/17 11:40 95 22 103/57 (72) 05/23/17 11:39 92 21 96/ (32) 05/23/17 11:32 71 107/ (35) 99 05/23/17 11:30 92 103/57 05/23/17 11:30 91 95 05/23/17 11:16 88 102/64 (77) 100 05/23/17 11:15 87 05/23/17 11:15 96 102/64 05/23/17 11:00 94 95 05/23/17 10:46 123 90/61 (71) 95 05/23/17 10:45 88 93 05/23/17 10:45 95 90/61 05/23/17 10:32 87 91/64 (73) 96 05/23/17 10:30 92 98 05/23/17 10:30 100 91/64 05/23/17 10:16 92 97/60 (72) 98 05/23/17 10:15 96 97/60 05/23/17 10:15 91 98 05/23/17 10:01 87 96/68 (77) 05/23/17 10:00 81 99 05/23/17 10:00 87 98/68 05/23/17 09:46 87 98/68 (78) 05/23/17 09:45 76 98/68 05/23/17 09:31 82 93/58 (70) 100 05/23/17 09:30 88 93/58 05/23/17 09:16 81 90/55 (67) 92 05/23/17 09:15 87 90/55 05/23/17 09:07 85 98/61 (73) 98 05/23/17 09:05 77 98/61 05/23/17 09:01 78 100/62 (75) 100 05/23/17 09:00 79 100 05/23/17 08:58 37.2 77 100/62 (75) 05/23/17 08:48 102 88/63 (71) 99 05/23/17 08:37 103 106/61 (76) 98 05/23/17 08:15 Nasal Cannula 3.0 05/23/17 08:01 107 37 82/54 (63) 92 05/23/17 08:00 107 28 92 05/23/17 07:59 102 05/23/17 07:47 37.1 110 26 81/58 (66) 94 05/23/17 07:31 80 22 82/58 (66) 92 05/23/17 07:16 79 23 80/57 (65) 94 05/23/17 07:01 79 26 85/58 (67) 97 05/23/17 07:00 79 27 98 05/23/17 06:16 78 23 86/65 (72) 98 Nasal Cannula 3.0 05/23/17 06:01 79 23 83/61 (68) 97 Nasal Cannula 3.0 05/23/17 05:46 79 24 83/65 (71) 96 Nasal Cannula 3.0 05/23/17 05:31 81 18 79/60 (66) 97 Nasal Cannula 3.0 05/23/17 05:16 79 21 80/62 (68) 98 Nasal Cannula 3.0 05/23/17 05:01 79 21 81/64 (70) 96 Nasal Cannula 3.0 05/23/17 04:46 80 21 81/67 (72) 97 Nasal Cannula 3.0 05/23/17 04:32 90 21 88/66 (73) 97 Nasal Cannula 3.0 05/23/17 04:17 37.0 103 22 130/66 (87) 97 Nasal Cannula 3.0 05/23/17 04:00 Nasal Cannula 3.0 05/23/17 03:17 78 21 81/62 (68) 96 Nasal Cannula 3.0 05/23/17 03:01 77 20 89/62 (71) 98 Nasal Cannula 3.0 05/23/17 02:46 77 20 83/64 (70) 99 Nasal Cannula 3.0 05/23/17 02:31 76 20 86/63 (71) 97 Nasal Cannula 3.0 05/23/17 02:17 75 21 84/58 (67) 96 Nasal Cannula 3.0 05/23/17 02:01 76 24 96/69 (78) 100 Nasal Cannula 3.0 05/23/17 01:46 76 21 101/67 (78) 99 Nasal Cannula 3.0 05/23/17 01:31 76 18 92/66 (75) 99 Nasal Cannula 3.0 05/23/17 01:16 76 23 92/66 (75) 98 Nasal Cannula 3.0 05/23/17 01:01 76 24 98/67 (77) 99 Nasal Cannula 3.0 05/23/17 00:46 76 15 94/66 (75) 99 Nasal Cannula 3.0 05/23/17 00:31 76 23 98/72 (81) 99 Nasal Cannula 3.0 05/23/17 00:16 76 24 89/65 (73) 99 Nasal Cannula 3.0 05/23/17 00:01 Nasal Cannula 3.0 05/23/17 00:01 37.4 76 21 92/62 (72) 99 Nasal Cannula 3.0 05/22/17 23:46 76 21 98/64 (75) 99 Nasal Cannula 3.0 05/22/17 23:41 76 21 94/64 (74) 100 Nasal Cannula 3.0 05/22/17 23:31 76 21 94/64 (74) 100 Nasal Cannula 3.0 05/22/17 23:16 77 21 93/61 (72) 99 Nasal Cannula 3.0 05/22/17 23:01 76 21 90/65 (73) 100 Nasal Cannula 3.0 05/22/17 22:47 76 20 92/58 (69) 100 Nasal Cannula 3.0 05/22/17 22:31 76 21 84/62 (69) 99 Nasal Cannula 3.0 05/22/17 22:16 76 21 78/62 (67) 98 Nasal Cannula 3.0 05/22/17 22:01 76 20 82/62 (69) 98 Nasal Cannula 3.0 05/22/17 21:46 76 21 86/61 (69) 99 Nasal Cannula 3.0 05/22/17 21:37 76 21 89/63 (72) 99 Nasal Cannula 3.0 05/22/17 21:17 77 21 93/53 (66) 99 Nasal Cannula 3.0 05/22/17 21:01 77 24 83/52 (62) 100 Nasal Cannula 3.0 05/22/17 20:46 77 24 78/56 (63) 99 Nasal Cannula 3.0 05/22/17 20:31 76 24 82/60 (67) 99 Nasal Cannula 3.0 05/22/17 20:17 77 23 78/57 (64) 97 Nasal Cannula 3.0 05/22/17 20:01 37.5 77 23 80/60 (67) 98 Nasal Cannula 3.0 05/22/17 20:00 Nasal Cannula 3.0 05/22/17 19:59 77 21 81/58 (66) 98 Nasal Cannula 3.0 05/22/17 19:46 77 22 77/60 (66) 97 Nasal Cannula 3.0 05/22/17 19:31 78 22 75/55 (62) 97 Nasal Cannula 3.0 05/22/17 19:16 78 23 69/55 (60) 96 Nasal Cannula 3.0 05/22/17 19:01 78 23 73/53 (60) 96 Nasal Cannula 3.0 05/22/17 18:17 88 21 84/59 (67) 98 05/22/17 18:15 89 22 97 05/22/17 18:05 103 24 94/73 (80) 96 05/22/17 18:00 98 23 96 Nasal Cannula 3.0 05/22/17 17:45 102 23 96 05/22/17 17:30 126 19 97 05/22/17 17:16 121 20 /45 (30) 97 05/22/17 17:15 104 18 96 05/22/17 17:01 78 25 88/62 (71) 96 05/22/17 17:00 78 22 97 05/22/17 16:45 75 21 96 05/22/17 16:31 79 23 104/58 (73) 99 05/22/17 16:30 75 20 99 05/22/17 16:16 74 19 84/54 (64) 99 05/22/17 16:15 75 15 98 05/22/17 16:01 37.1 75 20 92/62 (72) 98 Nasal Cannula 3.0 05/22/17 16:00 96 Nasal Cannula 3.0 05/22/17 16:00 75 20 98 05/22/17 15:46 75 19 90/64 (73) 100 05/22/17 15:45 75 18 100 05/22/17 15:31 75 20 96/60 (72) 100 05/22/17 15:30 75 19 100 Physical Exam General Appearance: WD/WN, no apparent distress Eyes: normal inspection, PERRL, EOMI, sclerae normal Neck: supple, no adenopathy, thyroid normal, no JVD Respiratory/Chest: chest non-tender, lungs clear, normal breath sounds, no respiratory distress Cardiovascular: no edema, no gallop, no JVD, no murmur, + tachycardia Abdomen: normal bowel sounds, non tender, soft, no organomegaly Neurologic/Psychiatric: no motor/sensory deficits, alert, normal mood/affect, oriented x 3 Laboratory Results Last 24 Hours Test 05/22/17 21:43 05/23/17 05:35 05/23/17 06:09 Bedside Glucose (other) 159 mg/dl 117 mg/dl White Blood Count 7.79 K/uL Red Blood Count 3.10 M/uL Hemoglobin 8.8 g/dL Hematocrit 27.4 % Mean Corpuscular Volume 88.4 fL Mean Corpuscular Hemoglobin 28.4 pg Mean Corpuscular Hemoglobin Concent 32.1 g/dl Platelet Count 95 K/uL Mean Platelet Volume 11.6 fL Neutrophils (%) (Auto) 81.7 % Lymphocytes (%) (Auto) 4.4 % Monocytes (%) (Auto) 10.4 % Eosinophils (%) (Auto) 2.2 % Basophils (%) (Auto) 0.3 % Neutrophils # (Auto) 6.37 K/uL Lymphocytes # (Auto) 0.34 K/uL Monocytes # (Auto) 0.81 K/uL Eosinophils # (Auto) 0.17 K/uL Basophils # (Auto) 0.02 K/uL RDW Standard Deviation 51.7 fL RDW Coefficient of Variation 16.1 % Immature Granulocyte % (Auto) 1.0 % Immature Granulocyte # (Auto) 0.08 K/uL Red Blood Cell Morphology Unremarkable Prothrombin Time 15.6 SECONDS Prothromb Time International Ratio 1.4 Activated Partial Thromboplast Time 31.2 SECONDS Partial Thromboplastin Ratio 1.2 Sodium Level 134 mmol/L Potassium Level 3.8 mmol/L Chloride Level 95 mmol/L Carbon Dioxide Level 30 mmol/L Anion Gap 9.0 mmol/L Blood Urea Nitrogen 31 mg/dl Creatinine 5.10 mg/dl Est Creatinine Clear Calc Drug Dose 18.7 ml/min Estimated GFR () 13.1 Estimated GFR (Non- 11.3 BUN/Creatinine Ratio 6.1 Random Glucose 119 mg/dl Calcium Level 8.2 mg/dl Magnesium Level 1.8 mg/dl Total Bilirubin 1.3 mg/dl Direct Bilirubin 0.9 mg/dl Aspartate Amino Transf (AST/SGOT) 17 U/L Alanine Aminotransferase (ALT/SGPT) 18 U/L Alkaline Phosphatase 133 U/L Total Protein 5.8 gm/dl Albumin 2.4 gm/dl Lipase 82 U/L Random Vancomycin Level 12.5 mcg/ml Assessment and Plan Severe sepsis/bilateral lower extremity cellulitis-- Admitted to the ICU, repeat LA WNL Continue on vancomycin IV and zosyn IV day # 3 Weaned off levophed but still on phenylephrine Unlikely related to permacath, please leave in at this time, repeat blood cx Initial blood cx pos for gram pos cocci, repeat pending ECHO did not determine any vegetations Appreciate canvas baster support and recs ESRD Recent permacath placement Dialysis completed on 05/23 Appreciate nephrology and vascular surgery recs Demand ischemia in setting of atrial flutter-- Has received digoxin 0.125 mg IV in the ED, with level I.0 with somewhat improved rate control. Continue aspirin 81 mg daily, clopidogrel 75 mg by mouth daily, digoxin 0.125 mg by mouth daily. Hold carvedilol 12.5 mg by mouth twice a day, furosemide 40 mg by mouth daily and metoprolol succinate 25 mg by mouth daily. INR subtherapeutic, coumadin dose increased to 7.5 mg PO daily Diabetes mellitus-- Continue Lantus 20 units subcutaneous every evening, and place on Accu-Cheks before meals and at bedtime with NovoLog coverage per scale. Hold glyburide 10 mg by mouth daily. GPN--continue gabapentin 800 mg by mouth 3 times a day. GI ppx with protonic Pt is FULL CODE
[2017-05-23] MEDS: LORAZEPAM 0.5 MG TAB PO PRN ×2 (15:35→21:28)
[2017-05-23] MEDS ORDERED: WARFARIN SOD 7.5 MG TAB PO ONE (16:00)
[2017-05-23] MEDS ORDERED: LACTULOSE SYRUP 10 GM/15 ML BTL 473 ML PO PRN (17:00)
[2017-05-23] MEDS: INSULIN GLARGINE SOLOSTAR 100 UNITS/ML 3 ML PEN SC SCH (21:29)
[2017-05-24] VITALS (26 sets, daily range): BP systolic 68–99; BP diastolic 44–63; PULSE 74–107; TEMP 36.3–36.8; O2SAT 93–100
[2017-05-24] MEDS: SODIUM CHLORIDE 0.9% IV SCH ×2 (00:22→05:38)
[2017-05-24] MEDS: THIAMINE HCL IV SCH ×2 (00:22→05:38)
[2017-05-24] MEDS: ASCORBIC ACID IV SCH ×2 (00:22→05:38)
[2017-05-24] MEDS: PIPERACILL/TAZOBAC IV 4.5 GM in DEXTROSE 5% 100ML 100 ML IV SCH (02:06)
[2017-05-24] MEDS: LORAZEPAM 0.5 MG TAB PO PRN ×2 (03:36→09:54)
[2017-05-24 05:49] LABS: HEMATOCRIT 24.6 % (42-52); MEAN CELL VOLUME 88.5 fL (80-100); MEAN CORPUSCULAR HEMOGLOBIN 28.8 pg (25-34); MEAN CORPUSCULAR HGB CONC 32.5 g/dl (32-36); RED BLOOD COUNT 2.78 M/uL (4.7-6.1); WHITE BLOOD COUNT 5.91 K/uL (4.8-10.8)
[2017-05-24 05:51] LABS: MEAN PLATELET VOLUME 11.6 fL (7.4-10.4); PLATELET COUNT 99 K/uL (130-400)
[2017-05-24 06:15] LABS: PARTIAL THROMBOPLASTIN RATIO 1.4; PROTHROMBIN TIME (PATIENT) 21.7 SECONDS (9.0-12.0)
[2017-05-24 06:17] LABS: BUN/CREATININE RATIO 5.4 (10-20); CALCIUM 7.9 mg/dl (8.5-10.1); CREATININE 3.7 mg/dl (0.60-1.40); POTASSIUM 3.4 mmol/L (3.5-5.1)
[2017-05-24] MEDS: INSULIN ASPART 100 UNITS/ML 3 ML PEN SC SCH ×4 (06:42→21:04)
[2017-05-24 07:00] LABS: PHOSPHORUS 2.6 mg/dl (2.5-4.9)
[2017-05-24] MEDS ORDERED: VANCOMYCIN INJ 1,000 MG in SODIUM CHLORIDE 0.9% 250ML 250 ML IV ONE (07:30)
[2017-05-24 08:09] LABS: BASO % 0.2 %; BASO ABS # 0.01 K/uL (0-0.2); COMPLETE YES; EOS % 4.4 %; IG% 1.5 %; LYMPH % 15.2 %; MONO % 12.4 %; NEUT % 66.3 %; SPHEROCYTE 1+
[2017-05-24] MEDS: DIGOXIN 0.125 MG TAB PO SCH ×2 (09:00→09:20)
[2017-05-24] MEDS: NYSTATIN POWDER 15GM BTL EXT SCH ×3 (09:19→22:09)
[2017-05-24] MEDS: DOCUSATE SODIUM 100 MG CAP PO SCH (09:20)
[2017-05-24] MEDS: CLOPIDOGREL BISULFATE 75 MG TAB PO SCH (09:20)
[2017-05-24] MEDS: GABAPENTIN 800 MG TAB PO SCH ×3 (09:20→21:00)
[2017-05-24] MEDS: ASPIRIN 81 MG ECTAB PO SCH (09:20)
[2017-05-24 09:22] LABS: VEN BLOOD GAS BASE EXCESS 3.8 mEq/L; VENOUS BLOOD GAS PCO2 46 mmHg (38.0-50.0); VENOUS BLOOD GAS PO2 22 mmHg
[2017-05-24 09:23] LABS: VEN BLD GAS O2 SATURATION < 60.0 %
[2017-05-24] MEDS: PANTOprazole SOD 40 MG TAB PO SCH (09:54)
--- NOTE | 2017-05-24 10:17 | Critical Care Progress Note ---
Critical Care Progress Note Date of Service May 24, 2017. ICU Day ICU Day Number: [address] Berkowitz Subjective Patient with no acute events overnight He says that he is feeling much better today and did not have any chills overnight Denies any redness, swelling or tenderness around permacath Denies any pain or worsening erythema around lower extremities Denies any fevers or night sweats Denies any chest pain, palpitations or shortness of breath Denies any cough, wheezing or chest tightness Denies any new itches or rashes Denies any abdominal pain, nausea or vomiting Had 3 bowel movements yesterday (two of them were liquid in nature), no blood or mucus noted Objective General Appearance: mild distress, appears comfortable, AAA x3 Head: normocephalic Eyes: PERRLA, no discharge, EOMI ENT: poor dentition Neck: no tenderness, trachea midline, supple, no thyromegaly, no lymphadenopathy Respiratory: breath sounds normal, clear to auscultation Cardiovasular: irregular rate, abnormal rhythm, abnormal pulses (weak peripheral pulses), other (distant heart sounds, permacath inferior to right clavicle and without any surrounding erythema or tenderness) Abdomen: mild tenderness in lower abdomen, normal bowel sounds, no rebound, no masses, no guarding Lower Extremities: other (bilateral lower extremity +1 edema and skin breakdown ---> improvement in erythema since yesterday ) Neuro: alert, oriented x 3, normal motor exam, normal speech Current SOFA Score SOFA Score Response (Comments) Value Platelets (x10) < 100 2 Bilirubin (mg/dL) < 1.2 0 [place] Coma Score 15 0 Level of Hypotension MAP less than 70 1 Creatinine (mg/dL) 3.5 - 4.9 3 Total 6 Assessment & Plan 62 year old male with ESRD, DM, Aflutter, CHF and CAD s/p CABG who was admitted to the ICU due to sepsis leading to persistent hypotension and the need for vasopressor support. Found to have positive blood cultures with staph aureus. ID - Patients meets SIRS criteria - Blood cultures 2/2 staph aureus, resistant to oxacillin and erythromycin - Repeat blood cultures of permacath and peripheral line still pending - Permacath cultures from outpatient line were positive; however there are no peripheral blood cultures we can compares these to so cannot be assessed of where the source is - Echo did not show any vegetations - On Vancomycin (vanc trough 14.9). Zosyn stopped as gram negative coverage not needed at this point - Cap lock permacath with vanc and hep. Hep lock at 5000 units /0.5ml. Vanc at 5mg/ml - Hx of MRSA, contact precautions - Wound care consult--> wound clinically improving - Likely source lower extremities vs permacath vs urinary source - Patient with fungal infection in groin, will treat with nystatin powder Cardiac - Atrial flutter - INR 2.0 today, Warfarin at 5mg today and continue to follow INR, - will reverse anticoagulation if decision is made to remove permacath - Continue dig .125 PO qAM. Carvedilol and toprol xl held for now - Dig level 1.2 today - CAD - hx of x5 CABG for PR 4 years ago in [place]. - Continue aspirin and plavix. troponins .147 and .167, likely demand ischaemia from sepsis - CHD - echo 05/09 showed EF of 20-25% with severe global hypokinesis and severe left ventricular dysfunction/severe right ventricular dysfunction. - Hold lasix as blood pressure low. monitor I/O's - Hypotension - off all pressors and blood pressure has remained in 80's/50's. Patient mentating well with normal cap refill. Lactic acid 1.3 and VBG wnl. Systolic baseline of 90 as outpatient - Will add midodrine 5mg tid for pressor support, will check random cortisol Renal - ESRD had a permacath placed 3 weeks ago[address] Follow[address] with Dr. Max. Dr Max wants to keep permacath in place for now and does not think port is source of infection. - Goes to dialysis , and Saturday - Nephrology consulted - Continue nephrocaps and calcitriol - EPO administered with dialysis as long as Hgb<10 Endo - Last HbA1c 8.9 on 05/13/17 - Insulin glargine 20 units QPM and insulin sliding scale with carb counting - Hx of peripheral neuropathy, continue gabapentin TID - Glyburide held due to ESRD GI - On colace once daily, lactulose prn for constipation - Continue renal and diabetic diet - Fluid restrict to 1200ml Neuro - CAM - - Ativan 0.5 mg PRN for anxiety - [place] for pain Dispo - PT/OT ordered - FULL CODE - TRANSFER TO FLOORS TODAY Resident Physician Supervision Note: Dr. Shen was resident physician during care of patient. I separately evaluated patient and did history and exam. I discussed the case with the resident and generally agree with the findings and plan. Patient no longer requiring vasoactive, systolic blood pressure did dip however he is sitting upright, alert, oriented, adequate capillary refill, repeat lactate during the episode of hypotension was negative, VBG largely unremarkable , hemodynamically stable for greater than 24 hours at this point ready for downgraded out of ICU. Patient will likely require follow-up with primary care doc regarding digoxin use in the setting of end-stage renal disease. It is noted that his outpatient medication reconciliation included daily dosage of digoxin, the patient is not and uric, he is clearing his vancomycin level greater than what is expected for an end-stage renal disease patient, therefore given his clinical improvement and digoxin level within acceptable ranges we will continue digoxin at this point. With regards to the patient's hemodialysis catheter, repeat set of blood cultures still have no growth to date, therefore I think it is indicative that the likely source is the patient's bilateral lower cellulitis and not the line. Again the patient has extenuating circumstances which preclude catheter removal. Patient did have MRSA bacteremia. Vancomycin administration can occur after dialysis treatments. We will discontinue the central venous catheter as well as a femoral line in the patient has not had vasoactive medication requirements. Documented By: Juventino Berkowitz DO Consults & Procedures Consultants: Dr. Winter Gaston Procedures: Left femoral line Data Medications: Current Inpatient Medications Medications (Trade) Dose Ordered Sig/Mikie Route Start Time Stop Time Status Last Admin Dose Admin Vancomycin HCl (Consult) 1 ea UD PRN N/A 05/21/17 14:45 06/20/17 14:44 Acetaminophen (Tylenol Tab) 650 mg Q4H PRN PO 05/21/17 15:00 06/20/17 14:59 05/22/17 17:09 650 MG Aspirin (Ecotrin Tab) 81 mg QAM PO 05/22/17 09:00 06/21/17 08:59 05/24/17 09:20 81 MG Clopidogrel Bisulfate (plAVix TAB) 75 mg DAILY PO 05/22/17 09:00 06/21/17 08:59 05/24/17 09:20 75 MG Digoxin (Lanoxin Tab) 0.125 mg DAILY PO 05/22/17 09:00 06/21/17 08:59 05/23/17 07:59 0.125 MG Docusate Sodium (coLACE CAP) 100 mg DAILY PO 05/22/17 09:00 06/21/17 08:59 05/24/17 09:20 100 MG Gabapentin (Neurontin Tab) 800 mg TID PO 05/21/17 21:00 06/20/17 20:59 05/24/17 09:20 800 MG Insulin Glargine (Lantus Solostar Pen) 20 units QPM SC 05/21/17 21:00 06/20/17 20:59 05/23/17 21:29 20 UNITS Lorazepam (Ativan Tab) 0.5 mg Q6H PRN PO 05/21/17 15:15 06/20/17 15:14 05/24/17 09:54 0.5 MG Acetaminophen/ Hydrocodone Bitart ([place] 5/325 Tab) 1 tab Q4H PRN PO 05/21/17 16:00 06/04/17 15:59 Insulin Aspart (novoLOG ASPART) SLIDING SCALE If C... ACHS SC 05/21/17 16:00 06/20/17 15:59 05/23/17 18:15 3 UNITS Glucose (Glucose 40% Gel) UD PRN PO 05/21/17 15:15 06/20/17 15:14 Glucose (Glucose Chew Tab) 1 tabs UD PRN PO 05/21/17 15:15 06/20/17 15:14 Dextrose (Dextrose 50% 50ML Syringe) 50 ml UD PRN IV 05/21/17 15:15 06/20/17 15:14 Glucagon (Glucagon Inj) 1 mg UD PRN SQ 05/21/17 15:15 06/20/17 15:14 Phenylephrine HCl 20 mg/Dextrose 502 ml @ 0 mls/hr Q0M PRN IV 05/21/17 20:00 06/20/17 19:59 05/23/17 12:58 61.2 MLS/HR Nystatin (Mycostatin Powder) 1 appln TID EXT 05/22/17 14:00 06/21/17 13:59 05/24/17 09:19 1 APPLN Pantoprazole Sodium (Protonix Tab) 40 mg QAM PO 05/22/17 14:00 06/21/17 13:59 05/24/17 09:54 40 MG Warfarin Sodium (Coumadin Tab) 5 mg DAILY@16 PO 05/22/17 16:00 06/21/17 15:59 Future hold 05/22/17 15:46 5 MG Heparin Sodium (Porcine) (Heparin 10 Unit/ ml 5 ml Flush) 5 ml PRN PRN FLUSH 05/23/17 01:00 06/22/17 00:59 Vancomycin HCl 10 mg/Heparin Sodium (Porcine) 04507 unit/Syringe 2 ml @ 0 mls/min UD PRN IV 05/23/17 10:15 05/25/17 10:14 05/23/17 13:35 1.6 MLS/MIN Lactulose (Chronulac Syrup) 10 gm QID PRN PO 05/23/17 17:00 06/20/17 16:59 Midodrine (Proamatine Tab) 5 mg TIDM PO 05/24/17 11:30 06/23/17 11:29 Ascorbic Acid (Vitamin C Tab) 500 mg QAM PO 05/24/17 14:00 06/23/17 13:59 Vitamin B Complex/ Vit C/Folic Acid (Nephrocaps) 1 cap BID PO 05/24/17 21:00 06/23/17 20:59 Vital Signs: Date Time Temp Pulse Resp B/P (MAP) Pulse Ox O2 Delivery O2 Flow Rate FiO2 05/24/17 10:00 36.5 77 20 81/57 (65) 93 Room Air 05/24/17 08:00 36.5 74 16 83/50 (61) 97 Nasal Cannula 2.0 05/24/17 08:00 100 Nasal Cannula 2.0 05/24/17 06:31 74 20 87/61 (70) 100 Nasal Cannula 2.0 05/24/17 06:16 74 19 85/60 (68) 100 Nasal Cannula 2.0 05/24/17 06:01 74 20 87/63 (71) 100 Nasal Cannula 2.0 05/24/17 05:46 74 19 83/59 (67) 100 Nasal Cannula 2.0 05/24/17 05:31 74 17 85/57 (66) 100 Nasal Cannula 2.0 05/24/17 05:16 74 22 84/52 (63) 100 Nasal Cannula 2.0 05/24/17 05:01 75 20 80/48 (59) 100 Nasal Cannula 2.0 05/24/17 04:46 75 20 83/53 (63) 100 Nasal Cannula 2.0 05/24/17 04:31 75 19 83/48 (60) 100 Nasal Cannula 2.0 05/24/17 04:16 36.6 75 21 77/54 (62) 100 Nasal Cannula 2.0 05/24/17 04:00 Nasal Cannula 2.0 05/24/17 03:32 75 14 84/57 (66) 100 Nasal Cannula 2.0 05/24/17 03:02 75 25 99/44 (62) 100 Nasal Cannula 2.0 05/24/17 02:31 75 10 90/63 (72) 100 Nasal Cannula 2.0 05/24/17 02:01 76 15 83/62 (69) 99 Nasal Cannula 2.0 05/24/17 01:16 76 19 83/60 (68) 100 Nasal Cannula 2.0 05/24/17 01:01 76 18 77/53 (61) 100 Nasal Cannula 2.0 05/24/17 00:47 79 18 92/44 (60) 99 Nasal Cannula 2.0 05/24/17 00:31 95 24 86/57 (67) 100 Nasal Cannula 2.0 05/24/17 00:16 107 18 78/50 (59) 99 Nasal Cannula 2.0 05/24/17 00:01 36.8 88 19 87/57 (67) 97 Nasal Cannula 2.0 05/24/17 00:01 Nasal Cannula 2.0 05/23/17 23:47 107 23 102/44 (63) 98 Nasal Cannula 2.0 05/23/17 23:31 94 22 82/52 (62) 94 Nasal Cannula 2.0 05/23/17 23:16 88 16 99/55 (70) 99 Nasal Cannula 2.0 05/23/17 23:01 89 23 83/48 (60) 98 Nasal Cannula 2.0 05/23/17 22:46 78 20 86/52 (63) 99 Nasal Cannula 2.0 05/23/17 22:31 77 18 85/52 (63) 90 Nasal Cannula 2.0 05/23/17 22:16 92 15 85/57 (66) 98 Nasal Cannula 2.0 05/23/17 22:01 91 22 81/55 (64) 98 2.0 05/23/17 21:46 92 17 77/57 (64) 98 Nasal Cannula 2.0 05/23/17 21:31 95 29 89/61 (70) 97 Nasal Cannula 2.0 05/23/17 21:16 93 14 100/53 (69) 99 Nasal Cannula 2.0 05/23/17 21:01 80 25 86/58 (67) 99 Nasal Cannula 2.0 05/23/17 20:46 83 25 83/63 (70) 98 Nasal Cannula 2.0 05/23/17 20:32 78 17 81/61 (68) 98 Nasal Cannula 2.0 05/23/17 20:16 76 22 90/56 (67) 97 Nasal Cannula 2.0 05/23/17 20:01 36.8 76 24 85/58 (67) 99 Nasal Cannula 2.0 05/23/17 20:00 Nasal Cannula 2.0 05/23/17 19:46 74 22 93/59 (70) 100 Nasal Cannula 2.0 05/23/17 19:31 74 23 95/61 (72) 98 Nasal Cannula 2.0 05/23/17 19:16 79 17 102/57 (72) 100 Nasal Cannula 2.0 05/23/17 19:01 73 25 95/71 (79) 100 Nasal Cannula 2.0 05/23/17 18:46 77 21 91/58 (69) 100 05/23/17 18:45 78 22 99 05/23/17 18:31 76 24 80/56 (64) 99 05/23/17 18:30 77 21 100 05/23/17 18:16 81 18 77/56 (63) 99 05/23/17 18:15 89 18 100 05/23/17 18:01 76 23 85/56 (66) 100 05/23/17 18:00 78 24 99 05/23/17 17:51 98 13 75/54 (61) 98 Nasal Cannula 3.0 05/23/17 17:32 78 21 81/54 (63) 100 05/23/17 17:30 76 18 100 05/23/17 17:15 85 21 100 05/23/17 17:01 83 22 77/57 (64) 93 05/23/17 17:00 88 19 05/23/17 16:51 97 21 114/69 (84) 98 05/23/17 16:45 83 33 82 05/23/17 16:30 79 23 100 05/23/17 16:15 Nasal Cannula 3.0 05/23/17 16:15 37.5 77 16 99 Nasal Cannula 3.0 05/23/17 15:46 75 22 83/59 (67) 99 05/23/17 15:31 77 22 89/54 (66) 100 05/23/17 15:30 76 18 99 05/23/17 15:17 77 20 110/61 (77) 100 05/23/17 15:02 79 18 80/37 (51) 98 05/23/17 15:00 78 20 100 05/23/17 14:17 88 19 87/58 (68) 93 05/23/17 14:01 82 31 84/61 (69) 93 05/23/17 14:00 85 22 93 05/23/17 13:48 103 25 95/63 (74) 93 05/23/17 13:31 85 18 100/68 (79) 100 05/23/17 13:30 76 18 100 05/23/17 13:16 77 20 100/60 (73) 100 05/23/17 13:11 76 21 100/58 (72) 99 05/23/17 13:10 37.0 76 100/58 (72) 05/23/17 13:10 05/23/17 13:02 78 16 82/59 (67) 99 05/23/17 13:00 77 82/59 05/23/17 13:00 78 18 99 05/23/17 12:46 77 22 86/54 (65) 98 05/23/17 12:45 77 86/54 05/23/17 12:31 77 17 95/53 (67) 05/23/17 12:30 77 95/53 05/23/17 12:30 80 19 100 05/23/17 12:15 Nasal Cannula 3.0 05/23/17 12:15 84 99/62 05/23/17 12:01 37.0 86 18 112/58 (76) 99 05/23/17 12:00 92 112/58 05/23/17 12:00 91 18 97 05/23/17 11:46 103 18 97/53 (68) 90 05/23/17 11:45 91 97/53 05/23/17 11:45 83 20 95 05/23/17 11:40 95 22 103/57 (72) 05/23/17 11:39 92 21 96/ (32) 05/23/17 11:32 71 107/ (35) 99 05/23/17 11:30 92 103/57 05/23/17 11:30 91 95 05/23/17 11:16 88 102/64 (77) 100 05/23/17 11:15 87 05/23/17 11:15 96 102/64 05/23/17 11:00 94 95 05/23/17 10:46 123 90/61 (71) 95 05/23/17 10:45 88 93 05/23/17 10:45 95 90/61 05/23/17 10:32 87 91/64 (73) 96 05/23/17 10:30 92 98 05/23/17 10:30 100 91/64 05/23/17 10:16 92 97/60 (72) 98 05/23/17 10:15 96 97/60 05/23/17 10:15 91 98 Laboratory Results: Last 24 Hours Test 05/23/17 16:08 05/23/17 16:28 05/23/17 21:08 05/24/17 05:31 Lactic Acid Level 2.1 mmol/L Digoxin Level 1.2 ng/ml Bedside Glucose 175 mg/dl 147 mg/dl White Blood Count 5.91 K/uL Red Blood Count 2.78 M/uL Hemoglobin 8.0 g/dL Hematocrit 24.6 % Mean Corpuscular Volume 88.5 fL Mean Corpuscular Hemoglobin 28.8 pg Mean Corpuscular Hemoglobin Concent 32.5 g/dl Platelet Count 99 K/uL Mean Platelet Volume 11.6 fL Neutrophils (%) (Auto) 66.3 % Lymphocytes (%) (Auto) 15.2 % Monocytes (%) (Auto) 12.4 % Eosinophils (%) (Auto) 4.4 % Basophils (%) (Auto) 0.2 % Neutrophils # (Auto) 3.92 K/uL Lymphocytes # (Auto) 0.90 K/uL Monocytes # (Auto) 0.73 K/uL Eosinophils # (Auto) 0.26 K/uL Basophils # (Auto) 0.01 K/uL RDW Standard Deviation 52.9 fL RDW Coefficient of Variation 16.3 % Immature Granulocyte % (Auto) 1.5 % Immature Granulocyte # (Auto) 0.09 K/uL Spherocytes 1+ Prothrombin Time 21.7 SECONDS Prothromb Time International Ratio 2.0 Activated Partial Thromboplast Time 36.2 SECONDS Partial Thromboplastin Ratio 1.4 Sodium Level 137 mmol/L Potassium Level 3.4 mmol/L Chloride Level 97 mmol/L Carbon Dioxide Level 30 mmol/L Anion Gap 10.0 mmol/L Blood Urea Nitrogen 20 mg/dl Creatinine 3.70 mg/dl Est Creatinine Clear Calc Drug Dose 25.5 ml/min Estimated GFR () 19.3 Estimated GFR (Non- 16.6 BUN/Creatinine Ratio 5.4 Random Glucose 95 mg/dl Calcium Level 7.9 mg/dl Phosphorus Level 2.6 mg/dl Magnesium Level 2.0 mg/dl Total Bilirubin 0.9 mg/dl Direct Bilirubin 0.7 mg/dl Aspartate Amino Transf (AST/SGOT) 17 U/L Alanine Aminotransferase (ALT/SGPT) 15 U/L Alkaline Phosphatase 143 U/L Total Protein 5.5 gm/dl Albumin 2.2 gm/dl Lipase 116 U/L Random Vancomycin Level 14.8 mcg/ml Test 05/24/17 09:07 Venous Blood pH 7.41 Venous Blood Partial Pressure CO2 46 mmHg Venous Blood Partial Pressure O2 22 mmHg Venous Blood HCO3 29 mmol/L Venous Blood Oxygen Saturation < 60.0 % Venous Blood Base Excess 3.8 mEq/L Lactic Acid Level 1.3 mmol/L
--- NOTE | 2017-05-24 11:15 | Nephrology Progress Note ---
Nephrology Progress Note Date of Service May 24, 2017. Chief Complaint F/U for end-stage renal disease. Lor Bergeron Was seen and examined in his room this morning. Is sitting up in chair, overall feeling better, blood pressure still electively low, heart rate better control. Had dialysis yesterday with 1.5 liters UF, tolerated well. Remain afebrile. Review of Systems A complete review of systems was performed. Pertinent positives are noted above. All other systems are negative. Vital Signs Last 8 Hrs Date Time Temp Pulse Resp B/P (MAP) Pulse Ox O2 Delivery O2 Flow Rate FiO2 05/24/17 06:31 74 20 87/61 (70) 100 Nasal Cannula 2.0 05/24/17 06:16 74 19 85/60 (68) 100 Nasal Cannula 2.0 05/24/17 06:01 74 20 87/63 (71) 100 Nasal Cannula 2.0 05/24/17 05:46 74 19 83/59 (67) 100 Nasal Cannula 2.0 05/24/17 05:31 74 17 85/57 (66) 100 Nasal Cannula 2.0 05/24/17 05:16 74 22 84/52 (63) 100 Nasal Cannula 2.0 05/24/17 05:01 75 20 80/48 (59) 100 Nasal Cannula 2.0 05/24/17 04:46 75 20 83/53 (63) 100 Nasal Cannula 2.0 05/24/17 04:31 75 19 83/48 (60) 100 Nasal Cannula 2.0 05/24/17 04:16 36.6 75 21 77/54 (62) 100 Nasal Cannula 2.0 05/24/17 04:00 Nasal Cannula 2.0 05/24/17 03:32 75 14 84/57 (66) 100 Nasal Cannula 2.0 05/24/17 03:02 75 25 99/44 (62) 100 Nasal Cannula 2.0 05/24/17 02:31 75 10 90/63 (72) 100 Nasal Cannula 2.0 05/24/17 02:01 76 15 83/62 (69) 99 Nasal Cannula 2.0 05/24/17 01:16 76 19 83/60 (68) 100 Nasal Cannula 2.0 05/24/17 01:01 76 18 77/53 (61) 100 Nasal Cannula 2.0 05/24/17 00:47 79 18 92/44 (60) 99 Nasal Cannula 2.0 05/24/17 00:31 95 24 86/57 (67) 100 Nasal Cannula 2.0 05/24/17 00:16 107 18 78/50 (59) 99 Nasal Cannula 2.0 05/24/17 00:01 36.8 88 19 87/57 (67) 97 Nasal Cannula 2.0 05/24/17 00:01 Nasal Cannula 2.0 Last Recorded Weight Weight (Kilograms): 102.400 Physical Exam GENERAL: middle aged male, AAA x 3 NECK: Supple, no JVD. RESPIRATORY: CTA CARDIOVASCULAR: tachycardic, rhythm irregular. ABDOMEN: soft, positive bowel sound EXTREMITY: B/L lower extremity edema erythema, edema and skin break , dressing in place, marked improvement in erythema NEURO: speech fluent. PSYCHIATRY: anxious. Family History No pertinent family history Social History Smokeless Tobacco Use: No Alcohol Use: none Drug Use: none Marital Status: Housing Status: lives with family Occupation: disabled Laboratory Results Past 24 Hours 05/24/17 05:31 Red Blood Count 2.78, Mean Corpuscular Volume 88.5, Mean Corpuscular Hemoglobin 28.8, Mean Corpuscular Hemoglobin Concent 32.5, Mean Platelet Volume 11.6 05/24/17 05:31 Test 05/23/17 16:08 05/23/17 16:28 05/23/17 21:08 05/24/17 05:31 Lactic Acid Level 2.1 mmol/L (0.4-2.0) Digoxin Level 1.2 ng/ml (0.8-2.0) Bedside Glucose 175 mg/dl (70-99) 147 mg/dl (70-99) White Blood Count 5.91 K/uL (4.8-10.8) Red Blood Count 2.78 M/uL (4.7-6.1) Hemoglobin 8.0 g/dL (14.0-18.0) Hematocrit 24.6 % (42-52) Mean Corpuscular Volume 88.5 fL (80-100) Mean Corpuscular Hemoglobin 28.8 pg (25-34) Mean Corpuscular Hemoglobin Concent 32.5 g/dl (32-36) Platelet Count 99 K/uL (130-400) Mean Platelet Volume 11.6 fL (7.4-10.4) RDW Standard Deviation 52.9 fL (36.4-46.3) RDW Coefficient of Variation 16.3 % (11.5-14.5) Prothrombin Time 21.7 SECONDS (9.0-12.0) Prothromb Time International Ratio 2.0 (0.9-1.1) Activated Partial Thromboplast Time 36.2 SECONDS (21.0-31.0) Partial Thromboplastin Ratio 1.4 Anion Gap 10.0 mmol/L (3-11) Est Creatinine Clear Calc Drug Dose 25.5 ml/min Estimated GFR () 19.3 Estimated GFR (Non- 16.6 BUN/Creatinine Ratio 5.4 (10-20) Calcium Level 7.9 mg/dl (8.5-10.1) Phosphorus Level 2.6 mg/dl (2.5-4.9) Magnesium Level 2.0 mg/dl (1.8-2.4) Total Bilirubin 0.9 mg/dl (0.2-1) Direct Bilirubin 0.7 mg/dl (0-0.2) Aspartate Amino Transf (AST/SGOT) 17 U/L (15-37) Alanine Aminotransferase (ALT/SGPT) 15 U/L (12-78) Alkaline Phosphatase 143 U/L (45-117) Total Protein 5.5 gm/dl (6.4-8.2) Albumin 2.2 gm/dl (3.4-5.0) Lipase 116 U/L (73-393) Random Vancomycin Level 14.8 mcg/ml Allergies Coded Allergies: No Known Allergies (Unverified , 05/21/17) Medications Current Inpatient Medications Medications (Trade) Dose Ordered Sig/Mikie Route Start Time Stop Time Status Last Admin Dose Admin Vancomycin HCl (Consult) 1 ea UD PRN N/A 05/21/17 14:45 06/20/17 14:44 Acetaminophen (Tylenol Tab) 650 mg Q4H PRN PO 05/21/17 15:00 06/20/17 14:59 05/22/17 17:09 650 MG Aspirin (Ecotrin Tab) 81 mg QAM PO 05/22/17 09:00 06/21/17 08:59 05/23/17 07:59 81 MG Clopidogrel Bisulfate (plAVix TAB) 75 mg DAILY PO 05/22/17 09:00 06/21/17 08:59 05/23/17 07:59 75 MG Digoxin (Lanoxin Tab) 0.125 mg DAILY PO 05/22/17 09:00 06/21/17 08:59 05/23/17 07:59 0.125 MG Docusate Sodium (coLACE CAP) 100 mg DAILY PO 05/22/17 09:00 06/21/17 08:59 05/23/17 07:59 100 MG Gabapentin (Neurontin Tab) 800 mg TID PO 05/21/17 21:00 06/20/17 20:59 05/23/17 21:29 800 MG Insulin Glargine (Lantus Solostar Pen) 20 units QPM SC 05/21/17 21:00 06/20/17 20:59 05/23/17 21:29 20 UNITS Lorazepam (Ativan Tab) 0.5 mg Q6H PRN PO 05/21/17 15:15 06/20/17 15:14 05/24/17 03:36 0.5 MG Acetaminophen/ Hydrocodone Bitart ([place] 5/325 Tab) 1 tab Q4H PRN PO 05/21/17 16:00 06/04/17 15:59 Insulin Aspart (novoLOG ASPART) SLIDING SCALE If C... ACHS SC 05/21/17 16:00 06/20/17 15:59 05/23/17 18:15 3 UNITS Glucose (Glucose 40% Gel) UD PRN PO 05/21/17 15:15 06/20/17 15:14 Glucose (Glucose Chew Tab) 1 tabs UD PRN PO 05/21/17 15:15 06/20/17 15:14 Dextrose (Dextrose 50% 50ML Syringe) 50 ml UD PRN IV 05/21/17 15:15 06/20/17 15:14 Glucagon (Glucagon Inj) 1 mg UD PRN SQ 05/21/17 15:15 06/20/17 15:14 Piperacillin Sod/ Tazobactam Sod (Consult) 1 ea UD PRN N/A 05/21/17 16:15 06/20/17 16:14 Phenylephrine HCl 20 mg/Dextrose 502 ml @ 0 mls/hr Q0M PRN IV 05/21/17 20:00 06/20/17 19:59 05/23/17 12:58 61.2 MLS/HR Nystatin (Mycostatin Powder) 1 appln TID EXT 05/22/17 14:00 06/21/17 13:59 05/23/17 21:28 1 APPLN Ascorbic Acid 1500 mg/Thiamine HCl 50 mg/Sodium Chloride 103.5 ml @ 206 mls/hr Q6H IV 05/22/17 12:00 05/26/17 06:31 05/24/17 05:38 206 MLS/HR Pantoprazole Sodium (Protonix Tab) 40 mg QAM PO 05/22/17 14:00 06/21/17 13:59 05/23/17 08:00 40 MG Warfarin Sodium (Coumadin Tab) 5 mg DAILY@16 PO 05/22/17 16:00 06/21/17 15:59 Future hold 05/22/17 15:46 5 MG Heparin Sodium (Porcine) (Heparin 10 Unit/ ml 5 ml Flush) 5 ml PRN PRN FLUSH 05/23/17 01:00 06/22/17 00:59 Vancomycin HCl 10 mg/Heparin Sodium (Porcine) 12314 unit/Syringe 2 ml @ 0 mls/min UD PRN IV 05/23/17 10:15 05/25/17 10:14 05/23/17 13:35 1.6 MLS/MIN Heparin Sodium (Porcine) (Heparin Sq 5000 Unit/0.5ml) 5,000 unit Q12H SQ 05/23/17 11:00 06/22/17 10:59 05/23/17 22:37 5,000 UNIT Piperacillin Sod/ Tazobactam Sod 4.5 gm/Dextrose 120 ml @ 30 mls/hr Q12H IV 05/23/17 14:00 06/01/17 00:01 05/24/17 02:06 30 MLS/HR Lactulose (Chronulac Syrup) 10 gm QID PRN PO 05/23/17 17:00 06/20/17 16:59 Vancomycin HCl 1000 mg/Sodium Chloride 270 ml @ 125 mls/hr NOW ONCE IV 05/24/17 07:30 05/24/17 09:39 Otis Bergeron is a 62-year-old gentlemen with ESRD secondary to diabetic nephropathy, on hemodialysis Saturday, , Saturday via right IJ tunnel dialysis catheter. Has hypertension, diabetes, coronary artery disease, CHF with right- sided heart failure. Was sent to the emergency room from dialysis unit as he was found to have rapid heart rate, lethargic and was febrile after 2 hours of dialysis treatment. His tunnel dialysis catheter area was otherwise normal, nontender without any sign of infection, blood culture was drawn and he was sent to emergency room for further evaluation. Has was found to hae B/L LE cellulitis He has atrial flutter with rapid ventricular rate, recently had admission at [facility] twice, he was discharged on carvedilol 12.5 milligram twice a day , digoxin 125 microgram daily and Coumadin. Raise Drill Operator recommended ROBERTO and cardioversion because of for recurrent admission and noncompliance with medication however he refused. On admission his chest x-ray was unremarkable, EKG showed a flutter with RVR, digoxin level was 1.0 and INR was 5.1. Blood culture grew MSSA, repeat culture was negative. Currently on vancomycin. Has been on Romeo-Synephrine, heart rate better but blood pressure continues to be electively low, asymptomatic. Recommendations --MSSA bacteremia, on vancomycin, repeat blood culture negative, blood culture from the dialysis unit seems to be growing same organism ( Gram + cocci ) but no identification yet -- left UE nephrology precaution for future vascular access -- TDC area without any sign of infection, unlikely to be the source of bacteremia, would keep the catheter in place for now and repeat blood cx. 2D echo was negative for vegetation. --agree with continuing empiric antibiotic as managed by intensive care unit --antibiotic can be continued with dialysis treatment when discharged planned. -- hold off on PD catheter for now --continue on Nephrocaps and calcitriol -- hold phosphate binder as patient having poor p.o. intake and phosphate level has been normal -- on boost 1 can 3 times a day and encourage protein intake -- MARCIO [id number] units on 05/23/17 --hold off on IV iron considering bacteremia
[2017-05-24] MEDS: MIDODRINE 2.5 MG TAB PO SCH ×2 (12:05→16:38)
--- NOTE | 2017-05-24 12:32 | Pharmacy Progress Note ---
Pharmacy Abx Dose Short Note Date of Service May 24, 2017. Assessment & Plan Assessment * 62 year old male admitted secondary to hypotension, tachycardia and fever while at dialysis - sepsis secondary to lower extremity cellulitis or HD catheter infxn. * Phenylephrine titrated off yesterday. His BP's appeared to be low today, however he was asymptomatic. Midodrine was added for BP support. * Blood cultures x 2 are growing MRSA, vancomycin PAWEL = 2mcg/mL; nasal swab is MRSA +; a culture was drawn from the HD catheter and is also reported to be growing GPC, ID of organism still pending. * Lower extremity cellulitis continues to improve. HD cath site does not appear infected per provider's assessments * He has been afebrile x 24 hrs, WBC normalized * Zosyn was stopped this AM by critical care team with desire to cover likely cellulitis pathogens (staph + strep), he did have serratia grow in a lower extremity wound cx earlier this month however could have been ulcer colonization * He is also receiving ABX lock therapy (vancomycin 5mg/mL + heparin 5000units/ mL) in an attempt to salvage HD catheter if this is in fact the source of bacteremia. [place] vancomycin conc should be 1000x higher than the PAWEL of the infecting organism (at least 2mg/mL based upon MRSA PAWEL of 2mcg/mL). Heparin conc should be between 2000-5000units/mL when instilling abx lock therapy in an infected HD catheter. Plan Vancomycin * Random level of 14.8 mcg/mL is subtherapeutic for bacteremia / sepsis. He was given 750mg IV in the AM yesterday prior to HD and 250mg IV yesterday after HD. * Will give 1000mg IV x 1 today to boost level to therapeutic level. * I suspect he has some degree of renal elimination as he reports urinating twice daily. He clearly eliminates vancomycin without HD treatment. * No HD is scheduled today. He is to resume a Sat schedule * Will recheck random level w/ AM labs tomorrow * Goal is to redose when level 15-20mcg/mL or anticipated to fall within this range after HD Pharmacy will continue to follow and will adjust dose/frequency as necessary. Thank you.
[2017-05-24] MEDS: ASCORBIC ACID 500 MG TAB PO SCH (14:07)
[2017-05-24] MEDS: WARFARIN SOD 5 MG TAB PO SCH (16:39)
[2017-05-24] MEDS ORDERED: NURSING VERBAL MED ORDER ONE (17:30)
[2017-05-24] MEDS ORDERED: NYSTATIN POWDER 15GM BTL EXT PRN (17:45)
--- NOTE | 2017-05-24 19:51 | Progress Note ---
Subjective Date of Service: May 24, 2017. Subjective Pt evaluation today including: conversation w/ patient, physical exam, chart review, lab review, conversation w/ [employer] sales consultant (critical care), review of inpatient medication list Pain: denies cp, abd pain, leg pain PO Intake: normal Voiding: no voiding problems (voids twice daily) tele with rate-controlled a. flutter denies any dyspnea feels overall good Problem List Medical Problems: (1) Atrial fibrillation with rapid ventricular response Status: Acute (2) Atrial fibrillation with RVR Status: Acute (3) Cellulitis Status: Acute (4) Dehydration Status: Acute (5) Sepsis Status: Acute Review of Systems Constitutional: No fever, No chills Respiratory: No cough, No shortness of breath, No dyspnea on exertion Cardiac: + edema, No chest pain, No orthopnea, No PND Abdomen: + diarrhea, No pain Objective Vital Signs Date Time Temp Pulse Resp B/P (MAP) Pulse Ox O2 Delivery O2 Flow Rate FiO2 05/24/17 16:00 36.5 96 16 85/48 (60) 94 Nasal Cannula 2.0 05/24/17 16:00 100 Room Air 05/24/17 14:00 36.5 86 17 84/45 (58) 94 Room Air 05/24/17 12:00 36.5 74 20 68/49 (55) 94 Room Air 05/24/17 12:00 94 Room Air 05/24/17 10:00 36.5 77 20 81/57 (65) 93 Room Air 05/24/17 08:00 36.5 74 16 83/50 (61) 97 Nasal Cannula 2.0 05/24/17 08:00 100 Nasal Cannula 2.0 05/24/17 06:31 74 20 87/61 (70) 100 Nasal Cannula 2.0 05/24/17 06:16 74 19 85/60 (68) 100 Nasal Cannula 2.0 05/24/17 06:01 74 20 87/63 (71) 100 Nasal Cannula 2.0 05/24/17 05:46 74 19 83/59 (67) 100 Nasal Cannula 2.0 05/24/17 05:31 74 17 85/57 (66) 100 Nasal Cannula 2.0 05/24/17 05:16 74 22 84/52 (63) 100 Nasal Cannula 2.0 05/24/17 05:01 75 20 80/48 (59) 100 Nasal Cannula 2.0 05/24/17 04:46 75 20 83/53 (63) 100 Nasal Cannula 2.0 05/24/17 04:31 75 19 83/48 (60) 100 Nasal Cannula 2.0 05/24/17 04:16 36.6 75 21 77/54 (62) 100 Nasal Cannula 2.0 05/24/17 04:00 Nasal Cannula 2.0 05/24/17 03:32 75 14 84/57 (66) 100 Nasal Cannula 2.0 05/24/17 03:02 75 25 99/44 (62) 100 Nasal Cannula 2.0 05/24/17 02:31 75 10 90/63 (72) 100 Nasal Cannula 2.0 05/24/17 02:01 76 15 83/62 (69) 99 Nasal Cannula 2.0 05/24/17 01:16 76 19 83/60 (68) 100 Nasal Cannula 2.0 05/24/17 01:01 76 18 77/53 (61) 100 Nasal Cannula 2.0 05/24/17 00:47 79 18 92/44 (60) 99 Nasal Cannula 2.0 05/24/17 00:31 95 24 86/57 (67) 100 Nasal Cannula 2.0 05/24/17 00:16 107 18 78/50 (59) 99 Nasal Cannula 2.0 05/24/17 00:01 36.8 88 19 87/57 (67) 97 Nasal Cannula 2.0 05/24/17 00:01 Nasal Cannula 2.0 05/23/17 23:47 107 23 102/44 (63) 98 Nasal Cannula 2.0 05/23/17 23:31 94 22 82/52 (62) 94 Nasal Cannula 2.0 05/23/17 23:16 88 16 99/55 (70) 99 Nasal Cannula 2.0 05/23/17 23:01 89 23 83/48 (60) 98 Nasal Cannula 2.0 05/23/17 22:46 78 20 86/52 (63) 99 Nasal Cannula 2.0 05/23/17 22:31 77 18 85/52 (63) 90 Nasal Cannula 2.0 05/23/17 22:16 92 15 85/57 (66) 98 Nasal Cannula 2.0 05/23/17 22:01 91 22 81/55 (64) 98 2.0 8/31/17 21:46 92 17 77/57 (64) 98 Nasal Cannula 2.0 05/23/17 21:31 95 29 89/61 (70) 97 Nasal Cannula 2.0 05/23/17 21:16 93 14 100/53 (69) 99 Nasal Cannula 2.0 05/23/17 21:01 80 25 86/58 (67) 99 Nasal Cannula 2.0 05/23/17 20:46 83 25 83/63 (70) 98 Nasal Cannula 2.0 05/23/17 20:32 78 17 81/61 (68) 98 Nasal Cannula 2.0 05/23/17 20:16 76 22 90/56 (67) 97 Nasal Cannula 2.0 05/23/17 20:01 36.8 76 24 85/58 (67) 99 Nasal Cannula 2.0 05/23/17 20:00 Nasal Cannula 2.0 05/23/17 19:46 74 22 93/59 (70) 100 Nasal Cannula 2.0 Physical Exam General Appearance: no apparent distress ENT: pharynx normal Neck: no JVD Respiratory/Chest: lungs clear, no respiratory distress, no accessory muscle use, + pertinent finding (right upper chest HD catheter site clean, no erythema , no fluctuance or purulence, nontender) Cardiovascular: + pertinent finding (irregular, s1, s2, no murmur) Abdomen: normal bowel sounds, non tender, soft, no organomegaly Extremities: + pedal edema (1+ b/l ) Neurologic/Psychiatric: alert, oriented x 3 Skin: + pertinent finding (multiple ulcerations on distal shins b/l; right lower [place] with resolving erythema/cellulitis ) Laboratory Results Last 24 Hours Test 05/23/17 21:08 05/24/17 05:31 05/24/17 09:07 05/24/17 11:11 Bedside Glucose 147 mg/dl 192 mg/dl White Blood Count 5.91 K/uL Red Blood Count 2.78 M/uL Hemoglobin 8.0 g/dL Hematocrit 24.6 % Mean Corpuscular Volume 88.5 fL Mean Corpuscular Hemoglobin 28.8 pg Mean Corpuscular Hemoglobin Concent 32.5 g/dl Platelet Count 99 K/uL Mean Platelet Volume 11.6 fL Neutrophils (%) (Auto) 66.3 % Lymphocytes (%) (Auto) 15.2 % Monocytes (%) (Auto) 12.4 % Eosinophils (%) (Auto) 4.4 % Basophils (%) (Auto) 0.2 % Neutrophils # (Auto) 3.92 K/uL Lymphocytes # (Auto) 0.90 K/uL Monocytes # (Auto) 0.73 K/uL Eosinophils # (Auto) 0.26 K/uL Basophils # (Auto) 0.01 K/uL RDW Standard Deviation 52.9 fL RDW Coefficient of Variation 16.3 % Immature Granulocyte % (Auto) 1.5 % Immature Granulocyte # (Auto) 0.09 K/uL Spherocytes 1+ Prothrombin Time 21.7 SECONDS Prothromb Time International Ratio 2.0 Activated Partial Thromboplast Time 36.2 SECONDS Partial Thromboplastin Ratio 1.4 Sodium Level 137 mmol/L Potassium Level 3.4 mmol/L Chloride Level 97 mmol/L Carbon Dioxide Level 30 mmol/L Anion Gap 10.0 mmol/L Blood Urea Nitrogen 20 mg/dl Creatinine 3.70 mg/dl Est Creatinine Clear Calc Drug Dose 25.5 ml/min Estimated GFR () 19.3 Estimated GFR (Non- 16.6 BUN/Creatinine Ratio 5.4 Random Glucose 95 mg/dl Calcium Level 7.9 mg/dl Phosphorus Level 2.6 mg/dl Magnesium Level 2.0 mg/dl Total Bilirubin 0.9 mg/dl Direct Bilirubin 0.7 mg/dl Aspartate Amino Transf (AST/SGOT) 17 U/L Alanine Aminotransferase (ALT/SGPT) 15 U/L Alkaline Phosphatase 143 U/L Total Protein 5.5 gm/dl Albumin 2.2 gm/dl Lipase 116 U/L Random Vancomycin Level 14.8 mcg/ml Venous Blood pH 7.41 Venous Blood Partial Pressure CO2 46 mmHg Venous Blood Partial Pressure O2 22 mmHg Venous Blood HCO3 29 mmol/L Venous Blood Oxygen Saturation < 60.0 % Venous Blood Base Excess 3.8 mEq/L Lactic Acid Level 1.3 mmol/L Test 05/24/17 15:25 Bedside Glucose 257 mg/dl Assessment and Plan 62yo male with: 1. septic shock 2nd to MRSA bacteremia - shock resolved, off pressors. source felt to be one of the ulcers on his legs. HD catheter possible but less likely. agree with current plan for vancomycin - at least 14 days of Rx. "salvage" therapy in place to cover the HD catheter just in case this was the source. echo negative for vegetations and repeat blood cx's are thus far negative. 2. a flutter - rates controlled, coumadin therapeutic. INR in am. Cont dig and BB. 3. chronic systolic CHF - compensated. Cont BB, lasix. Not candidate for AKI/ARB due to ESRD. 4. ESRD on HD //Sat - HD tomorrow. 5. ulcers on shins - likely combination of venous disease and peripheral artery disease contributing to these. Appreciate wound care consultation & recs. 6. anemia - 2nd to #4, but cannot exclude GI bleeding (or bleeding from recent central line attempts). H/H in am. Check hemoccult from stool. 7. T2DM - uncontrolled - tighten carb coverage to 1:8 and correction to 25. 8. HTN - controlled. 9. CAD - no ischemic symptoms at this time. Cont asa, plavix, BB. Statin intolerant in the past? 10. DVT proph - coumadin. Daily INR. 11. tinea cruris - antifungal cream. 12. Will need PT, OT. ok to transfer to tele unit Continued [facility] stay due to: multiple IV medications needed Discharge planning: home with home health
[2017-05-24] MEDS: NEPHROCAPS PO SCH (21:00)
[2017-05-24] MEDS: INSULIN GLARGINE SOLOSTAR 100 UNITS/ML 3 ML PEN SC SCH (21:04)
[2017-05-25] VITALS (25 sets, daily range): BP systolic 80–147; BP diastolic 48–125; PULSE 71–74; TEMP 36.6–36.9; O2SAT 95–100
[2017-05-25 06:17] LABS: BASO % 0.3 %; BASO ABS # 0.02 K/uL (0-0.2); EOS % 5.1 %; HEMATOCRIT 26.5 % (42-52); IG% 2.2 %; LYMPH % 17.2 %; LYMPH ABS # 1.01 K/uL (1.2-3.4); MEAN CELL VOLUME 87.5 fL (80-100); MEAN CORPUSCULAR HEMOGLOBIN 28.7 pg (25-34); MEAN CORPUSCULAR HGB CONC 32.8 g/dl (32-36); MEAN PLATELET VOLUME 11.3 fL (7.4-10.4); MONO % 9.9 %; NEUT % 65.3 %; PLATELET COUNT 122 K/uL (130-400); RED BLOOD COUNT 3.03 M/uL (4.7-6.1); WHITE BLOOD COUNT 5.88 K/uL (4.8-10.8)
[2017-05-25 06:29] LABS: INR 3.1 (0.9-1.1); PROTHROMBIN TIME (PATIENT) 35.1 SECONDS (9.0-12.0)
[2017-05-25 06:56] LABS: BUN/CREATININE RATIO 6.2 (10-20); CALCIUM 8.6 mg/dl (8.5-10.1); CREATININE 4.4 mg/dl (0.60-1.40); POTASSIUM 3.4 mmol/L (3.5-5.1)
[2017-05-25] MEDS: INSULIN ASPART 100 UNITS/ML 3 ML PEN SC SCH ×4 (07:00→20:53)
[2017-05-25 07:06] LABS: COMPLETE YES; SPHEROCYTE OCCASIONAL
[2017-05-25] MEDS: NEPHROCAPS PO SCH ×2 (08:41→20:50)
[2017-05-25] MEDS: PANTOprazole SOD 40 MG TAB PO SCH (08:42)
[2017-05-25] MEDS: DIGOXIN 0.125 MG TAB PO SCH (08:42)
[2017-05-25] MEDS: DOCUSATE SODIUM 100 MG CAP PO SCH (08:42)
[2017-05-25] MEDS: MIDODRINE 2.5 MG TAB PO SCH ×3 (08:42→17:08)
[2017-05-25] MEDS: ASCORBIC ACID 500 MG TAB PO SCH (08:42)
[2017-05-25] MEDS: CLOPIDOGREL BISULFATE 75 MG TAB PO SCH (08:42)
[2017-05-25] MEDS: ASPIRIN 81 MG ECTAB PO SCH (08:42)
[2017-05-25] MEDS: GABAPENTIN 800 MG TAB PO SCH ×3 (08:42→20:50)
[2017-05-25] MEDS: NYSTATIN POWDER 15GM BTL EXT SCH ×3 (08:43→20:50)
--- NOTE | 2017-05-25 11:12 | Dialysis Progress Note ---
Hemodialysis Note Date of Service May 25, 2017. Chief Complaint Follow up evaluation of this patient w/ ESRD Subjective Mr. Montgomery was seen & examined during HD this morning. He currently denies fever, angina or palpitations. He is being dialyzed via his IJ THC without complication. Telemetry reveals atrial flutter w/ HR 72 bpm. Patient is currently off pressor support. Review of Systems Constitutional: No fever Cardiovascular: No chest pain Respiratory: No dyspnea at rest Abdomen: No pain, No nausea, No vomiting Extremities: + leg edema A complete review of systems was performed. Pertinent positives are noted above. All other systems are negative. Vital Signs Last 8 Hrs Date Time Temp Pulse Resp B/P (MAP) Pulse Ox O2 Delivery O2 Flow Rate FiO2 05/25/17 10:45 72 100/63 05/25/17 10:30 71 94/60 05/25/17 10:15 72 95/61 05/25/17 10:00 72 99/66 05/25/17 09:45 71 104/66 05/25/17 09:43 71 101/66 05/25/17 09:31 36.8 71 147/125 (132) 05/25/17 08:42 80 05/25/17 08:05 Room Air 05/25/17 07:41 36.7 74 16 94/61 (72) 96 05/25/17 04:00 99 Room Air 05/25/17 04:00 36.6 71 17 80/57 (65) 99 Nasal Cannula 2.0 Last Recorded Weight Weight (Kilograms): 105.100 Physical Exam General Appearance: no apparent distress Head: normocephalic, atraumatic Eyes: PERRL, EOMI Neck: no adenopathy Respiratory/Chest: lungs clear Cardiovascular: regular rate, rhythm Abdomen/GI: normal bowel sounds, non tender, soft Extremities/Musculoskelatal: + swelling (1+ pretibial pitting edema. Unable to appreciate pulses in the feet bilaterally. ) Neurologic/Psych: alert, oriented x 3 Social History Smokeless Tobacco Use: No Alcohol Use: none Drug Use: none Marital Status: Housing Status: lives with family Occupation: disabled Laboratory Results Past 24 Hours 05/25/17 05:51 Red Blood Count 3.03, Mean Corpuscular Volume 87.5, Mean Corpuscular Hemoglobin 28.7, Mean Corpuscular Hemoglobin Concent 32.8, Mean Platelet Volume 11.3, Neutrophils (%) (Auto) 65.3, Lymphocytes (%) (Auto) 17.2, Monocytes (%) (Auto) 9.9, Eosinophils (%) (Auto) 5.1, Basophils (%) (Auto) 0.3, Neutrophils # (Auto) 3.84, Lymphocytes # (Auto) 1.01, Monocytes # (Auto) 0.58, Eosinophils # (Auto) 0.30, Basophils # (Auto) 0.02 05/25/17 05:51 Test 05/24/17 11:11 05/24/17 15:25 05/24/17 20:26 05/25/17 05:51 Bedside Glucose 192 mg/dl (70-99) 257 mg/dl (70-99) 163 mg/dl (70-99) White Blood Count 5.88 K/uL (4.8-10.8) Red Blood Count 3.03 M/uL (4.7-6.1) Hemoglobin 8.7 g/dL (14.0-18.0) Hematocrit 26.5 % (42-52) Mean Corpuscular Volume 87.5 fL (80-100) Mean Corpuscular Hemoglobin 28.7 pg (25-34) Mean Corpuscular Hemoglobin Concent 32.8 g/dl (32-36) Platelet Count 122 K/uL (130-400) Mean Platelet Volume 11.3 fL (7.4-10.4) Neutrophils (%) (Auto) 65.3 % Lymphocytes (%) (Auto) 17.2 % Monocytes (%) (Auto) 9.9 % Eosinophils (%) (Auto) 5.1 % Basophils (%) (Auto) 0.3 % Neutrophils # (Auto) 3.84 K/uL (1.4-6.5) Lymphocytes # (Auto) 1.01 K/uL (1.2-3.4) Monocytes # (Auto) 0.58 K/uL (0.11-0.59) Eosinophils # (Auto) 0.30 K/uL (0-0.5) Basophils # (Auto) 0.02 K/uL (0-0.2) RDW Standard Deviation 52.6 fL (36.4-46.3) RDW Coefficient of Variation 16.5 % (11.5-14.5) Immature Granulocyte % (Auto) 2.2 % Immature Granulocyte # (Auto) 0.13 K/uL (0.00-0.02) Spherocytes OCCASIONAL Prothrombin Time 35.1 SECONDS (9.0-12.0) Prothromb Time International Ratio 3.1 (0.9-1.1) Anion Gap 10.0 mmol/L (3-11) Est Creatinine Clear Calc Drug Dose 21.5 ml/min Estimated GFR () 15.6 Estimated GFR (Non- 13.5 BUN/Creatinine Ratio 6.2 (10-20) Calcium Level 8.6 mg/dl (8.5-10.1) Random Cortisol 21.87 mcg/dl Random Vancomycin Level 22.1 mcg/ml Digoxin Level 1.2 ng/ml (0.8-2.0) Test 05/25/17 07:20 Bedside Glucose 121 mg/dl (70-99) Allergies Coded Allergies: No Known Allergies (Unverified , 05/21/17) Medications Current Inpatient Medications Medications (Trade) Dose Ordered Sig/Mikie Route Start Time Stop Time Status Last Admin Dose Admin Vancomycin HCl (Consult) 1 ea UD PRN N/A 05/21/17 14:45 06/20/17 14:44 Acetaminophen (Tylenol Tab) 650 mg Q4H PRN PO 05/21/17 15:00 06/20/17 14:59 05/22/17 17:09 650 MG Aspirin (Ecotrin Tab) 81 mg QAM PO 05/22/17 09:00 06/21/17 08:59 05/25/17 08:42 81 MG Clopidogrel Bisulfate (plAVix TAB) 75 mg DAILY PO 05/22/17 09:00 06/21/17 08:59 05/25/17 08:42 75 MG Digoxin (Lanoxin Tab) 0.125 mg DAILY PO 05/22/17 09:00 06/21/17 08:59 05/25/17 08:42 0.125 MG Docusate Sodium (coLACE CAP) 100 mg DAILY PO 05/22/17 09:00 06/21/17 08:59 05/25/17 08:42 100 MG Gabapentin (Neurontin Tab) 800 mg TID PO 05/21/17 21:00 06/20/17 20:59 05/25/17 08:42 800 MG Insulin Glargine (Lantus Solostar Pen) 20 units QPM SC 05/21/17 21:00 06/20/17 20:59 05/24/17 21:04 20 UNITS Lorazepam (Ativan Tab) 0.5 mg Q6H PRN PO 05/21/17 15:15 06/20/17 15:14 05/24/17 09:54 0.5 MG Acetaminophen/ Hydrocodone Bitart ([place] 5/325 Tab) 1 tab Q4H PRN PO 05/21/17 16:00 06/04/17 15:59 Insulin Aspart (novoLOG ASPART) SLIDING SCALE If C... ACHS SC 05/21/17 16:00 06/20/17 15:59 05/25/17 07:00 5 UNITS Glucose (Glucose 40% Gel) UD PRN PO 05/21/17 15:15 06/20/17 15:14 Glucose (Glucose Chew Tab) 1 tabs UD PRN PO 05/21/17 15:15 06/20/17 15:14 Dextrose (Dextrose 50% 50ML Syringe) 50 ml UD PRN IV 05/21/17 15:15 06/20/17 15:14 Glucagon (Glucagon Inj) 1 mg UD PRN SQ 05/21/17 15:15 06/20/17 15:14 Nystatin (Mycostatin Powder) 1 appln TID EXT 05/22/17 14:00 06/21/17 13:59 05/25/17 08:43 1 APPLN Pantoprazole Sodium (Protonix Tab) 40 mg QAM PO 05/22/17 14:00 06/21/17 13:59 05/25/17 08:42 40 MG Warfarin Sodium (Coumadin Tab) 5 mg DAILY@16 PO 05/22/17 16:00 06/21/17 15:59 Future hold 05/24/17 16:39 5 MG Heparin Sodium (Porcine) (Heparin 10 Unit/ ml 5 ml Flush) 5 ml PRN PRN FLUSH 05/23/17 01:00 06/22/17 00:59 Lactulose (Chronulac Syrup) 10 gm QID PRN PO 05/23/17 17:00 06/20/17 16:59 Midodrine (Proamatine Tab) 5 mg TIDM PO 05/24/17 11:30 06/23/17 11:29 05/25/17 08:42 5 MG Ascorbic Acid (Vitamin C Tab) 500 mg QAM PO 05/24/17 14:00 06/23/17 13:59 05/25/17 08:42 500 MG Vitamin B Complex/ Vit C/Folic Acid (Nephrocaps) 1 cap BID PO 05/24/17 21:00 06/23/17 20:59 05/25/17 08:41 1 CAP Nystatin (Mycostatin Powder) 1 appln UD PRN EXT 05/24/17 17:45 06/23/17 17:44 Impression 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 He is on TTS HD via R IJ THC. His PMH is significant for HTN, AODM, ASCVD, CHF with right-sided heart failure. Was sent to the emergency room from dialysis unit as he was found to have rapid heart rate, lethargic and was febrile after 2 hours of dialysis treatment. His tunnel dialysis catheter area was otherwise normal, nontender without any sign of infection, blood culture was drawn and he was sent to emergency room for further evaluation. Has was found to hae B/L LE cellulitis He has atrial flutter with rapid ventricular rate, recently had admission at [facility] twice, he was discharged on carvedilol 12.5 milligram twice a day , digoxin 125 microgram daily and Coumadin. Dr[employer] Box [employer] recommended ROBERTO and cardioversion because of for recurrent admission and noncompliance with medication however he refused. On admission his chest x-ray was unremarkable, EKG showed a flutter with RVR, digoxin level was 1.0 and INR was 5.1. Blood culture grew MSSA, repeat culture was negative. Currently on vancomycin. Has been on Romeo-Synephrine, heart rate better but blood pressure continues to be electively low, asymptomatic. Recommendations END STAGE RENAL DISEASE: -- Patient was seen & examined during HD this morning. THC is functioning A:A, V:V at Qb 300 cc/min. -- Patient is on a 3K bath due to relative hypokalemia -- Will attempt 2 L UF w/ HD today to help alleviate LE edema -- Monitor PRP ID: -- On Vancomycin per pharmacy consult. 2nd & 3rd set of blood cultures were negative -- Will renew HD THC antibiotic lock -- Orders phoned to [facility] HD unit to continue Vancomycin catheter lock x 2 weeks following hospital discharge PVD: -- Patient has weak LE pulses. Will order bilateral LE arterial doppler
[2017-05-25] MEDS ORDERED: HEPARIN IV PRN ×2 (11:45)
[2017-05-25] MEDS ORDERED: VANCOMYCIN IV PRN ×2 (11:45)
[2017-05-25] MEDS ORDERED: POTASSIUM CHLORIDE 10 MEQ TABCR PO STA (11:50)
--- NOTE | 2017-05-25 19:10 | Progress Note ---
Subjective Date of Service: May 25, 2017. Subjective Pt evaluation today including: conversation w/ patient, physical exam, chart review, lab review, review of inpatient medication list Pain: denies PO Intake: normal Voiding: no voiding problems (voids 1-2x's a day) tele with rate-controlled a flutter patient anxious to go home denies dyspnea, cough, leg pain Problem List Medical Problems: (1) Atrial fibrillation with rapid ventricular response Status: Acute (2) Atrial fibrillation with RVR Status: Acute (3) Cellulitis Status: Acute (4) Dehydration Status: Acute (5) Sepsis Status: Acute Review of Systems Constitutional: No fever, No chills Respiratory: No dyspnea on exertion Cardiac: + edema, No chest pain, No orthopnea, No PND Abdomen: No pain, No diarrhea Objective Vital Signs Date Time Temp Pulse Resp B/P (MAP) Pulse Ox O2 Delivery O2 Flow Rate FiO2 05/25/17 16:03 36.9 73 20 88/63 (71) 95 Room Air 05/25/17 16:02 Room Air 05/25/17 14:00 36.7 71 100/64 (76) 05/25/17 13:30 72 101/58 05/25/17 13:15 72 93/67 05/25/17 13:00 72 103/62 05/25/17 12:45 72 103/68 05/25/17 12:30 72 99/66 05/25/17 12:15 72 102/66 05/25/17 12:02 Room Air 05/25/17 12:00 72 96/64 05/25/17 11:45 36.8 74 18 112/62 (79) 96 Room Air 05/25/17 11:45 71 84/56 05/25/17 11:30 72 90/58 05/25/17 11:15 74 112/62 05/25/17 11:00 72 97/61 05/25/17 10:45 72 100/63 05/25/17 10:30 71 94/60 05/25/17 10:15 72 95/61 05/25/17 10:00 72 99/66 05/25/17 09:45 71 104/66 05/25/17 09:43 71 101/66 05/25/17 09:31 36.8 71 147/125 (132) 05/25/17 08:42 80 9/2/17 08:05 Room Air 05/25/17 07:41 36.7 74 16 94/61 (72) 96 05/25/17 04:00 99 Room Air 05/25/17 04:00 36.6 71 17 80/57 (65) 99 Nasal Cannula 2.0 05/25/17 00:00 100 Room Air 05/25/17 00:00 36.8 72 18 87/53 (64) 100 Nasal Cannula 2.0 05/24/17 20:00 36.3 74 83/51 (62) 96 Room Air 05/24/17 20:00 96 Room Air Physical Exam General Appearance: no apparent distress ENT: pharynx normal Neck: + JVD Respiratory/Chest: no respiratory distress, no accessory muscle use, + decreased breath sounds (left base), + pertinent finding (right chest permcath clean, no erythema ) Cardiovascular: + pertinent finding (irregular, s1, s2, no murmur) Abdomen: normal bowel sounds, non tender, soft, no organomegaly Extremities: + pedal edema (1-2+ b/l ) Neurologic/Psychiatric: alert, oriented x 3 Skin: + pertinent finding (ulcer, right nowak - linear, about 3cm in length, with serous drainage; left nowak ulcers x 2 clean; stasis changes b/l shins) Comments: vascular - popliteal, DP, and pos tib pulses <1+ b/l Laboratory Results Last 24 Hours Test 05/24/17 20:26 05/25/17 05:51 05/25/17 07:20 05/25/17 11:29 Bedside Glucose 163 mg/dl 121 mg/dl 155 mg/dl White Blood Count 5.88 K/uL Red Blood Count 3.03 M/uL Hemoglobin 8.7 g/dL Hematocrit 26.5 % Mean Corpuscular Volume 87.5 fL Mean Corpuscular Hemoglobin 28.7 pg Mean Corpuscular Hemoglobin Concent 32.8 g/dl Platelet Count 122 K/uL Mean Platelet Volume 11.3 fL Neutrophils (%) (Auto) 65.3 % Lymphocytes (%) (Auto) 17.2 % Monocytes (%) (Auto) 9.9 % Eosinophils (%) (Auto) 5.1 % Basophils (%) (Auto) 0.3 % Neutrophils # (Auto) 3.84 K/uL Lymphocytes # (Auto) 1.01 K/uL Monocytes # (Auto) 0.58 K/uL Eosinophils # (Auto) 0.30 K/uL Basophils # (Auto) 0.02 K/uL RDW Standard Deviation 52.6 fL RDW Coefficient of Variation 16.5 % Immature Granulocyte % (Auto) 2.2 % Immature Granulocyte # (Auto) 0.13 K/uL Spherocytes OCCASIONAL Prothrombin Time 35.1 SECONDS Prothromb Time International Ratio 3.1 Sodium Level 134 mmol/L Potassium Level 3.4 mmol/L Chloride Level 97 mmol/L Carbon Dioxide Level 27 mmol/L Anion Gap 10.0 mmol/L Blood Urea Nitrogen 27 mg/dl Creatinine 4.40 mg/dl Est Creatinine Clear Calc Drug Dose 21.5 ml/min Estimated GFR () 15.6 Estimated GFR (Non- 13.5 BUN/Creatinine Ratio 6.2 Random Glucose 99 mg/dl Calcium Level 8.6 mg/dl Random Cortisol 21.87 mcg/dl Random Vancomycin Level 22.1 mcg/ml Digoxin Level 1.2 ng/ml Test 05/25/17 16:01 Bedside Glucose 187 mg/dl Assessment and Plan 62yo male with: 1. septic shock 2nd to MRSA bacteremia - shock resolved. BPs satisfactory - low-normal readings, but no dizziness/etc. source felt to be one of the ulcers on his legs. HD catheter possible but less likely. agree with current plan for vancomycin - at least 14 days of Rx. "salvage" therapy in place to cover the HD catheter just in case this was the source. echo negative for vegetations and repeat blood cx's are thus far negative. however, echo was quite limited; will recommend outpatient ROBERTO in the next week. cortisol level normal making adrenal insufficiency unlikely. 2. a flutter - rates controlled, coumadin therapeutic, but INR jumped considerably overnight - likely due to abx. hold coumadin today; repeat INR am Cont dig and BB. 3. chronic systolic CHF - compensated. Cont BB, lasix. Not candidate for AKI/ARB due to ESRD. 4. ESRD on HD Tu/Th/Sat - HD today 5. ulcers on shins - likely combination of venous disease and peripheral artery disease contributing to these. Appreciate wound care consultation & recs. Dopplers, arterial, of legs ordered by nephrology. 6. anemia - 2nd to #4, but cannot exclude GI bleeding (or bleeding from recent central line attempts). H/H stable today however. Check hemoccult from stool. 7. T2DM - improved control with tightened carb coverage to 1:8 and correction to 25. 8. HTN - controlled. 9. CAD - no ischemic symptoms at this time. Cont asa, plavix, BB. Statin intolerant in the past? 10. DVT proph - coumadin. Daily INR. 11. tinea cruris - antifungal cream. 12. possible d/c tomorrow ?? left message for on answering machine 05/25/17 Continued [facility] stay due to: multiple IV medications needed Discharge planning: home with home health
--- NOTE | 2017-05-25 20:24 | DIAGNOSTIC IMAGING REPORT ---
ART DOP LOWER EXT BILAT HISTORY: 62 years-old Male diminished pulses of the left lower extremity. Symptoms are acute in nature. Initial exam. COMPARISON: None available. TECHNIQUE: Multiple real-time sonographic images of the bilateral lower extremity arterial structures were obtained assessing grayscale appearance, color and spectral flow. Segmental blood pressures were also obtained. FINDINGS: Study is limited secondary to lower extremity swelling with vessels of the calf not well seen. Patient also had difficulty holding still for the study. RIGHT LOWER EXTREMITY: Segmental blood pressure: Brachial 90; posterior tibial artery was unable to be obtained secondary to limitations as above. Dorsalis pedis artery 76 with index of 0.83. Moderate atherosclerotic plaquing is seen within the vessels of the calf. Triphasic waveforms are seen within the common femoral and profunda femoris arteries. Blunted monophasic waveforms are noted within the superficial femoral and popliteal arteries. Additionally, blunted monophasic waveforms are seen within the posterior tibial artery with peak systolic velocity measured at 45 cm/s. Blunted monophasic waveform within the peroneal artery are seen with peak systolic velocity measuring 63 cm/s. Blunted monophasic waveform within the anterior tibial artery are present with peak systolic velocity of 51 cm/s. Blunted monophasic waveforms within the dorsalis pedis artery are seen with peak systolic velocity of 24 cm/s. LEFT LOWER EXTREMITY: Segmental blood pressure: Brachial 92; posterior tibial artery 54 with index of 0.59; dorsalis pedis artery 62 with index of 0.67. Scattered areas of atherosclerotic plaquing are noted. Triphasic waveforms are present within the common femoral, profunda femoris and very proximal superficial femoral arteries. Within the distal aspect of the proximal superficial femoral artery blunted biphasic waveforms are noted with areas of triphasic flow seen within the distal SFA. Blunted triphasic waveforms are present within the popliteal artery. Monophasic blunted waveforms are seen within the arteries of the calf with peak systolic velocities as below. Posterior tibial artery 47 cm/s. Peroneal artery 61 cm/s. Anterior tibial artery 232 cm/s. Dorsalis pedis artery 53 cm/s. IMPRESSION: 1. No evidence of arterial occlusion within either lower extremity. 2. Atherosclerotic vascular disease of the bilateral lower extremity arteries with multifocal blunted monophasic waveforms as above. 3. Elevated peak systolic velocities of the anterior tibial artery on the left measuring up to 232 cm/s suggests high-grade stenosis. 4. Bilateral decreased FATUMA's as above. The above report was generated using voice recognition software. It may contain grammatical, syntax or spelling errors. Electronically signed by: Maximino Arenas M.D. 05/25/2017 8:23 PM Dictated Date/Time: 05/25/2017 8:11 PM
[2017-05-25] MEDS: INSULIN GLARGINE SOLOSTAR 100 UNITS/ML 3 ML PEN SC SCH (20:54)
[2017-05-25] MEDS: LORAZEPAM 0.5 MG TAB PO PRN (21:58)
[2017-05-25] MEDS ORDERED: LACTULOSE SYRUP 10 GM/15 ML BTL 473 ML PO PRN (22:00)
[2017-05-26 03:42] VITALS: BP 100/65; PULSE 73; TEMP 37.1; O2SAT 95
[2017-05-26 06:45] LABS: PLATELET COUNT 135 K/uL (130-400)
[2017-05-26 06:55] LABS: INR 2.8 (0.9-1.1); PROTHROMBIN TIME (PATIENT) 31.5 SECONDS (9.0-12.0)
[2017-05-26 07:16] LABS: BUN/CREATININE RATIO 4.3 (10-20); CALCIUM 8.5 mg/dl (8.5-10.1); CREATININE 3.2 mg/dl (0.60-1.40); POTASSIUM 3.7 mmol/L (3.5-5.1)
[2017-05-26] MEDS: NEPHROCAPS PO SCH (07:46)
[2017-05-26] MEDS: ASPIRIN 81 MG ECTAB PO SCH (07:46)
[2017-05-26] MEDS: CLOPIDOGREL BISULFATE 75 MG TAB PO SCH (07:46)
[2017-05-26] MEDS: GABAPENTIN 800 MG TAB PO SCH ×2 (07:46→13:57)
[2017-05-26] MEDS: PANTOprazole SOD 40 MG TAB PO SCH (07:47)
[2017-05-26] MEDS: DIGOXIN 0.125 MG TAB PO SCH (07:47)
[2017-05-26] MEDS: ASCORBIC ACID 500 MG TAB PO SCH (07:47)
[2017-05-26] MEDS: NYSTATIN POWDER 15GM BTL EXT SCH ×2 (07:48→11:55)
[2017-05-26] MEDS: INSULIN ASPART 100 UNITS/ML 3 ML PEN SC SCH ×2 (07:51→11:54)
[2017-05-26 08:15] VITALS: BP 113/65; PULSE 73; TEMP 36.6; O2SAT 96
[2017-05-26] MEDS: MIDODRINE 2.5 MG TAB PO SCH ×2 (08:23→11:55)
[2017-05-26] MEDS: DOCUSATE SODIUM 100 MG CAP PO SCH (08:24)
--- NOTE | 2017-05-26 10:09 | Nephrology Progress Note ---
Nephrology Progress Note Date of Service May 26, 2017. Chief Complaint Follow up evaluation of this patient w/ ESRD Subjective Mr. Montgomery was seen & examined in his hospital room this morning. He was dialyzed yesterday for 4 hours w/ 1.9 L UF. There were no complications. SBP has been 100 - 120 mm Hg off pressors. Telemetry shows atrial flutter w/ ventricular rate 73 bpm. Patient was afebrile overnight. He is anxious to return home. Review of Systems Constitutional: No fever Cardiovascular: No chest pain Respiratory: No dyspnea at rest Abdomen: No pain, No nausea, No vomiting Extremities: + leg edema A complete review of systems was performed. Pertinent positives are noted above. All other systems are negative. Vital Signs Last 8 Hrs Date Time Temp Pulse Resp B/P (MAP) Pulse Ox O2 Delivery O2 Flow Rate FiO2 05/26/17 08:15 36.6 73 18 113/65 (81) 96 Room Air 05/26/17 08:05 Room Air 05/26/17 07:47 73 05/26/17 04:00 Room Air 05/26/17 03:42 37.1 73 18 100/65 (77) 95 Room Air Last Recorded Weight Weight (Kilograms): 102.500 Physical Exam General Appearance: no apparent distress Head: normocephalic, atraumatic Eyes: PERRL, EOMI Neck: no adenopathy, + pertinent finding (R IJ THC with clean dry dressing in place) Respiratory/Chest: lungs clear Cardiovascular: regular rate, rhythm Abdomen/GI: normal bowel sounds, non tender, soft Extremities/Musculoskelatal: no calf tenderness, + swelling (3+ pretibial edema ) Neurologic/Psych: alert Family History No pertinent family history Social History Smokeless Tobacco Use: No Alcohol Use: none Drug Use: none Marital Status: Housing Status: lives with family Occupation: disabled Laboratory Results Past 24 Hours 05/26/17 06:11 05/26/17 06:11 Test 05/25/17 11:29 05/25/17 16:01 05/25/17 20:26 05/26/17 06:08 Bedside Glucose 155 mg/dl (70-99) 187 mg/dl (70-99) 203 mg/dl (70-99) 120 mg/dl (70-99) Test 05/26/17 06:11 Prothrombin Time 31.5 SECONDS (9.0-12.0) Prothromb Time International Ratio 2.8 (0.9-1.1) Anion Gap 9.0 mmol/L (3-11) Est Creatinine Clear Calc Drug Dose 29.5 ml/min Estimated GFR () 23.0 Estimated GFR (Non- 19.8 BUN/Creatinine Ratio 4.3 (10-20) Calcium Level 8.5 mg/dl (8.5-10.1) Random Vancomycin Level 14.5 mcg/ml Allergies Coded Allergies: No Known Allergies (Unverified , 05/21/17) Medications Current Inpatient Medications Medications (Trade) Dose Ordered Sig/Mikie Route Start Time Stop Time Status Last Admin Dose Admin Vancomycin HCl (Consult) 1 ea UD PRN N/A 05/21/17 14:45 06/20/17 14:44 Acetaminophen (Tylenol Tab) 650 mg Q4H PRN PO 05/21/17 15:00 06/20/17 14:59 05/22/17 17:09 650 MG Aspirin (Ecotrin Tab) 81 mg QAM PO 05/22/17 09:00 06/21/17 08:59 05/26/17 07:46 81 MG Clopidogrel Bisulfate (plAVix TAB) 75 mg DAILY PO 05/22/17 09:00 06/21/17 08:59 05/26/17 07:46 75 MG Digoxin (Lanoxin Tab) 0.125 mg DAILY PO 05/22/17 09:00 06/21/17 08:59 05/26/17 07:47 0.125 MG Docusate Sodium (coLACE CAP) 100 mg DAILY PO 05/22/17 09:00 06/21/17 08:59 05/26/17 08:24 100 MG Gabapentin (Neurontin Tab) 800 mg TID PO 05/21/17 21:00 06/20/17 20:59 05/26/17 07:46 800 MG Insulin Glargine (Lantus Solostar Pen) 20 units QPM SC 05/21/17 21:00 06/20/17 20:59 05/25/17 20:54 20 UNITS Lorazepam (Ativan Tab) 0.5 mg Q6H PRN PO 05/21/17 15:15 06/20/17 15:14 05/25/17 21:58 0.5 MG Acetaminophen/ Hydrocodone Bitart ([place] 5/325 Tab) 1 tab Q4H PRN PO 05/21/17 16:00 06/04/17 15:59 Insulin Aspart (novoLOG ASPART) SLIDING SCALE If C... ACHS SC 05/21/17 16:00 06/20/17 15:59 05/26/17 07:51 6 UNITS Glucose (Glucose 40% Gel) UD PRN PO 05/21/17 15:15 06/20/17 15:14 Glucose (Glucose Chew Tab) 1 tabs UD PRN PO 05/21/17 15:15 06/20/17 15:14 Dextrose (Dextrose 50% 50ML Syringe) 50 ml UD PRN IV 05/21/17 15:15 06/20/17 15:14 Glucagon (Glucagon Inj) 1 mg UD PRN SQ 05/21/17 15:15 06/20/17 15:14 Nystatin (Mycostatin Powder) 1 appln TID EXT 05/22/17 14:00 06/21/17 13:59 05/26/17 07:48 1 APPLN Pantoprazole Sodium (Protonix Tab) 40 mg QAM PO 05/22/17 14:00 06/21/17 13:59 05/26/17 07:47 40 MG Warfarin Sodium (Coumadin Tab) 5 mg DAILY@16 PO 05/22/17 16:00 06/21/17 15:59 Future Hold 05/24/17 16:39 5 MG Heparin Sodium (Porcine) (Heparin 10 Unit/ ml 5 ml Flush) 5 ml PRN PRN FLUSH 05/23/17 01:00 06/22/17 00:59 Midodrine (Proamatine Tab) 5 mg TIDM PO 05/24/17 11:30 06/23/17 11:29 05/26/17 08:23 5 MG Ascorbic Acid (Vitamin C Tab) 500 mg QAM PO 05/24/17 14:00 06/23/17 13:59 05/26/17 07:47 500 MG Vitamin B Complex/ Vit C/Folic Acid (Nephrocaps) 1 cap BID PO 05/24/17 21:00 06/23/17 20:59 05/26/17 07:46 1 CAP Nystatin (Mycostatin Powder) 1 appln UD PRN EXT 05/24/17 17:45 06/23/17 17:44 Vancomycin HCl 10 mg/Heparin Sodium (Porcine) 48734 unit/Syringe 2 ml @ 0 mls/min UD PRN IV 05/25/17 11:45 06/15/17 11:44 Lactulose (Chronulac Syrup) 10 gm QID PRN PO 05/25/17 22:00 06/24/17 21:59 05/25/17 21:59 10 GM Impression 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 He is on TTS HD via R IJ THC. His PMH is significant for HTN, AODM, ASCVD, CHF with right-sided heart failure. Was sent to the emergency room from dialysis unit as he was found to have rapid heart rate, lethargic and was febrile after 2 hours of dialysis treatment. He was diagnosed w/ B LE cellulitis. Blood cultures were positive for MSSA. He is being treated w/ IV Vancomycin and a Vancomycin HD catheter lock Mr. Montgomery has atrial flutter with rapid ventricular rate. He is on Digoxin for rate control and Warfarin for anticoagulation Recommendations END STAGE RENAL DISEASE: -- Electrolyte balance is acceptable. No acute indication for HD today -- I have notified the [facility] HD unit that patient is nearing discharge. They will resume his outpatient HD on Saturday -- Monitor PRP -- No nephrology follow up visit needs to be scheduled. Patient will be seen & evaluated during weekly dialysis rounds -- Please schedule outpatient visit with Dr. Gaston for surgical creation of AVF isac ID: -- Will provide Vancomycin 500 mg IV after each dialysis x 6 doses. Orders have been sent to [place] HD unit. -- Will check Vancomycin trough level prior to 3 rd dose -- Will continue Vancomycin dialysis catheter lock x 2 weeks. Orders have been sent to the [place] HD unit PVD: -- Patient has weak LE pulses. LE doppler shows L anterior tibial artery w/ high grade stenosis. Patient will require outpatient evaluation by Dr. Gaston for LE PVD CV: -- Patient has had recurrent RVR. Discussed the importance of taking medications as prescribed to avoid recurrent RVR and hospitalization
[2017-05-26] MEDS ORDERED: VANCOMYCIN INJ 1,000 MG in SODIUM CHLORIDE 0.9% 250ML 250 ML IV SCH (10:30)
[2017-05-26 11:48] VITALS: BP 100/69; PULSE 75; TEMP 36.6; O2SAT 98
[2017-05-26 13:41] VITALS: BP 100/69; PULSE 75; TEMP 36.6; O2SAT 98
[2017-05-26] MEDS ORDERED: LNX125 PO (14:00)
[2017-05-26] MEDS ORDERED: MIDO5TAB PO (14:00)
[2017-05-26] MEDS ORDERED: CRG125 PO ×2 (14:00→14:44)
[2017-05-26] MEDS ORDERED: WARF5TAB7 PO ×2 (14:00→14:43)
[2017-05-26] MEDS ORDERED: NVLG SC (14:00)
[2017-05-26] MEDS ORDERED: VANC1INJ94 IV (14:00)
[2017-05-26] MEDS ORDERED: B-COCAP20 PO (14:00)
[2017-05-26] MEDS ORDERED: LACT10SO17 PO (14:00)
[2017-05-26] MEDS ORDERED: INSU1MIS SC (14:02)
[2017-05-26] MEDS ORDERED: NRN/300 PO (14:09)
--- NOTE | 2017-05-26 14:24 | Discharge Instructions ---
Discharge Instructions Date of Service May 26, 2017. Admission Reason for Admission: Cellulitis, Sepsis Discharge Discharge Diagnosis / Problem: STAPH INFECTION OF THE BLOOD, LIKELY FROM YOUR LEG ULCERS Discharge Goals Goal(s): Learn about illness, Diagnostic testing, Therapeutic intervention Activity Recommendations Activity Limitations: resume your previous activity . Instructions / Follow-Up Instructions / Follow-Up From Dr. Bustillo - 1. infection in your blood - staph infection - * this was felt to come from the ulcers on your legs * you will be receiving antibiotic on dialysis days at the dialysis center for the next 2 weeks 2. congestive heart failure - take the following medications - * carvedilol 12.5mg twice a day every day * digoxin 0.125mg once daily every day at about 4:00pm (if possible) * furosemide 40mg twice a day every day * baby aspirin 81mg once daily every day 3. to prevent your blood pressure from going too low please take the following - * midodrine 5mg three times a day every day * new prescription given to you 4. diabetes - * ideally you should be on SEVERAL shots of insulin per day * continue the lantus 20 units every night at bedtime as previous - do this EVERY DAY regardless of whether you start on the novolog * if you can afford novolog and do not mind taking it please use novolog as follows - * novolog 5 units with BREAKFAST, 5 units with LUNCH, and 5 units with DINNER * if you skip a meal you skip the novolog * the novolog comes in a bottle * thus you will need to draw up the novolog in a syringe * a prescription for the syringes has been provided for you * if possible please check your blood sugars before EACH MEAL and AT BEDTIME 5. coumadin for your heart (coumadin is your blood thinner) - * your dose has been DECREASED to a HALF tablet daily of the 5mg tablet * again, your dose is now HALF tablet daily * I have asked our social workers to arrange home health services for you as they can likely monitor your coumadin levels for you * start your coumadin TODAY 05/26/17 6. leg ulcers - the dressings will need to be changed every other day. Ideally home health will come to your home to change these. They will need to be changed on 05/28/17. 7. follow-up appointments - * see the dialysis center on 05/28/17, as scheduled * see Dr. Rodriguez THIS WEEK * we will contact you to coordinate the special heart ultrasound (echocardiogram ) at [facility] in the next 2 weeks 8. Additional instructions for your congestive heart failure - Call 911 and go to the Emergency Room if: * You have tightness or pain in your chest that does not go away with rest or Nitroglycerin * You are very short of breath even with rest Call your doctor if any of the following symptoms or problems start or get worse: * Shortness of breath or difficulty breathing * Wake up at night short of breath * Chest pain * Cough * Swelling of your hands, fee, or legs * More fatigued or tired with your normal activity * Palpitations - sudden fast heart beats WEIGHT * Weigh yourself every morning after using the bathroom. * Use the same scale. * Wear the same amount of clothing. * Write your weight down on your chart. * Call your doctor if you gain more than 2-3 pounds in 1-2 days. MEDICATIONS * Use this discharge instruction sheet for instructions. * Take your medications at the time your doctor ordered. * Do not skip a dose of your medicines. * If you miss a dose of medicine, take as soon as possible, but DO NOT DOUBLE A DOSE. * Read your medicine information when you get home. * Know all of the side effects of your medicine. * Call your doctor's office if you have any side effects. * Be sure all of your doctors know what medicine and herbs you take (including cold, flu, and herbal medicine). * Pain Medicine: If you do not get relief from your pain, please call your doctor for help. Take the following with you to your follow-up doctor appointments: * Weight Chart * Medication List * List of questions Do not drink excessive alcohol, beer or wine. Current Hospital Diet Patient's current hospital diet: Renal Diet Discharge Diet Recommended Diet: Low Sodium Diet (2gm Na), Diabetes Type 2 Diet, Renal Diet Fluid Restriction: 1500 ml (6 cups) Procedures Procedures Performed: 1. CENTRAL LINE PLACEMENT INTO THE GROIN. 2. ULTRASOUND OF ARTERIES OF LEGS SHOWING HARDENING OF THE ARTERIES. Pending Studies Studies pending at discharge: no Laboratory Results Hemoglobin A1c Test 05/13/17 09:00 Range/Units Estimated Average Glucose 209 mg/dl Hemoglobin A1c 8.9 H 4.5-5.6 % Lipid Panel Test 05/08/17 19:39 Range/Units Triglycerides Level 179 H 0-150 mg/dl Cholesterol Level 122 0-200 mg/dl HDL Cholesterol 31 mg/dl Cholesterol/HDL Ratio 3.9 LDL Cholesterol, Calculated 55 mg/dl Medical Emergencies . Who to Call and When: Medical Emergencies: If at any time you feel your situation is an emergency, please call 911 immediately. . Non-Emergent Contact Non-Emergency issues call your: Certified Ophthalmic Medical Technician Call Non-Emergent contact if: temperature is above 100.5, your pain is not controlled, your pain is worsening, your pain is unusual for you, your pain is concerning you, wound has increased drainage, wound has increased redness, wound has increased pain, you have any medication questions . . "Provider Documentation" section prepared by Leroy Bustillo. . VTE Core Measure Inpt VTE Proph given/why not?: Warfarin (Coumadin)
[2017-05-26] MEDS ORDERED: METO25TA3 PO (14:25)
[2017-05-26] MEDS ORDERED: FRS/40 PO (14:43)
[2017-05-26] MEDS ORDERED: GABA1CAP PO (14:44)
--- NOTE | 2017-05-26 22:58 | Discharge Summary ---
Discharge Summary Date of Service May 26, 2017. Discharge Summary Admission Date: May 21, 2017 at 14:56 Discharge Date: May 26, 2017 Discharge Disposition: Home with services Principal Diagnosis: septic shock 2nd to MRSA, likely from leg ulcers & cellulitis Problems/Secondary Diagnoses: 1. a. fib/flutter 2. ESRD on HD, //Saturday 3. diabetic polyneuropathy 4. T2DM, uncontrolled 5. chronic systolic CHF - EF 25-30% 6. CAD s/p CABG x 5 at [facility] [place] - 01/18/14; CABG was preceded by NSTEMI 7. PAD 8. prior tobacco dependence 9. carotid stenosis 10. noncompliance 11. multiple nowak ulcers, likely combination of venous stasis and PAD contributing 12. +troponin, likely myocardial demand ischemia in the setting of septic shock 13. anemia of chronic kidney disease Immunizations: Have You Had Influenza Vaccine: Unknown History of Tetanus Vaccine?: Unknown History of Pneumococcal: Unknown History of Hepatitis B Vaccine: Unknown Procedures: 1. central venous line placement, femoral approach 2. bilateral lower extremity arterial dopplers - RIGHT LOWER EXTREMITY: Segmental blood pressure: Brachial 90; posterior tibial artery was unable to be obtained secondary to limitations as above. Dorsalis pedis artery 76 with index of 0.83. Moderate atherosclerotic plaquing is seen within the vessels of the calf. Triphasic waveforms are seen within the common femoral and profunda femoris arteries. Blunted monophasic waveforms are noted within the superficial femoral and popliteal arteries. Additionally, blunted monophasic waveforms are seen within the posterior tibial artery with peak systolic velocity measured at 45 cm/s. Blunted monophasic waveform within the peroneal artery are seen with peak systolic velocity measuring 63 cm/s. Blunted monophasic waveform within the anterior tibial artery are present with peak systolic velocity of 51 cm/s. Blunted monophasic waveforms within the dorsalis pedis artery are seen with peak systolic velocity of 24 cm/s. LEFT LOWER EXTREMITY: Segmental blood pressure: Brachial 92; posterior tibial artery 54 with index of 0.59; dorsalis pedis artery 62 with index of 0.67. Scattered areas of atherosclerotic plaquing are noted. Triphasic waveforms are present within the common femoral, profunda femoris and very proximal superficial femoral arteries. Within the distal aspect of the proximal superficial femoral artery blunted biphasic waveforms are noted with areas of triphasic flow seen within the distal SFA. Blunted triphasic waveforms are present within the popliteal artery. Monophasic blunted waveforms are seen within the arteries of the calf with peak systolic velocities as below. Posterior tibial artery 47 cm/s. Peroneal artery 61 cm/s. Anterior tibial artery 232 cm/s. Dorsalis pedis artery 53 cm/s. IMPRESSION: 1. No evidence of arterial occlusion within either lower extremity. 2. Atherosclerotic vascular disease of the bilateral lower extremity arteries with multifocal blunted monophasic waveforms as above. 3. Elevated peak systolic velocities of the anterior tibial artery on the left measuring up to 232 cm/s suggests high-grade stenosis. 4. Bilateral decreased FATUMA's as above. 3. echocardiogram: * Severe left ventricular systolic dysfunction, EF 25-30%. * Moderate right ventricular systolic dysfunction. * Biventricular dilatation. * Mild left atrial dilatation. * Trace - mild mitral regurgitation. * Mild - moderate tricuspid regurgitation. * Mildly elevated estimated right ventricular systolic pressure. * Elevated central venous pressure. * Compared to an echocardiogram of 04/30/2017 there has been no significant interval change. * The study was technically difficult. * The study was technically limited. * There is no evidence of a mass or vegetation. This does not rule out endocarditis. Consultations: 1. critical care - Juventino Berkowitz DO 2. nephrology - Dona Max MD 3. vascular surgery - Ar Gaston MD 4. PT, OT 5. enterostomy Medication Reconciliation New Medications: Carvedilol (Carvedilol) 12.5 Mg Tab 12.5 MG PO BID, #60 TABS 2 Refills for your heart Insulin Aspart (Novolog) 100 Units/Ml Inj 5 UNITS SC TIDM, #1 BTL 5 Refills Insulin Syringe/Needle U-100 (Bd Insulin Syringe Ultraf) 1 Mis Mis BOX SC TIDM, #1 5 Refills Vancomycin HCl in Sodium Chlor (VANCOMYCIN in NSS) 1 Inj Inj 500 MG IV UD for 14 Days, BAG 0 Refills GIVE EACH DOSE AFTER DIALYSIS ON //SATURDAY B-Complex W/ C & Folic Acid (Renal) 1 Cap Cap 1 CAP PO BID, #60 CAP 2 Refills Midodrine Hcl (Midodrine Hcl) 5 Mg Tab 5 MG PO TID, #90 TAB 0 Refills Changed Medications: Digoxin (Digoxin) 0.125 Mg Tab 0.125 MG PO Q1600, #30 TAB 2 Refills (Changed from: Refills: ) for your heart Furosemide (Lasix) 40 Mg Tab 40 MG PO BID, #60 TAB 2 Refills (Changed from: DAILY; Refills: ) for fluid and your heart Gabapentin (Neurontin) 100 Mg Cap 1 CAP PO BID for 30 Days, #60 CAP 2 Refills (Changed from: Gabapentin (Neurontin ) 300 Mg Cap 1 Cap PO BID 30 Days #60 CAP Ref 3) Lactulose (Chronulac) 10 Gm/15 Ml Syrp 15 ML PO BID PRN for Constipation, #1 (Changed from: QID) Warfarin Sod (Jantoven) 5 Mg Tab 0.5 TAB PO DAILY, #30 TAB 2 Refills (Medication details modified) blood thinner for your heart Continued Medications: Aspirin (Aspirin EC Low Dose) 81 Mg Ectab 81 MG PO QAM for 30 Days Docusate Sodium (Colace) 100 Mg Cap 100 MG PO DAILY Fish Oil (Lincoln-3) 1 Ea Cap 1 CAP PO DAILY, CAP Insulin Glargine (Lantus) 100 Unit/Ml Inj 20 UNIT SC QPM, VIAL Nitroglycerin (Nitrostat) 0.4 Mg Tab 0.4 MG UT PRN, BTL Psyllium (Metamucil) 48.57 % Pow Discontinued Medications: Ciprofloxacin Hcl (Cipro) 500 Mg Tab 500 MG PO HS, TAB Clopidogrel (Plavix) 75 Mg Tab 75 MG PO DAILY, TAB Glyburide (Diabeta) 5 Mg Tab 10 MG PO DAILY, TAB Hydrocodone-Acetaminophen (Hydrocodone Bitartrate/Ac) 1 Tab Tab 5 MG PO Q4H PRN for Pain Insulin Aspart (Novolog Penfill) 100 Unit/Ml Inj 8 UNITS SC TIDM Lorazepam (Ativan) 0.5 Mg Tab 0.5 MG PO Q6H PRN for Anxiety, TAB Discharge Exam Physical Exam: General Appearance: no apparent distress ENT: pharynx normal Neck: + JVD Respiratory/Chest: lungs clear, no respiratory distress, no accessory muscle use, + pertinent finding (right upper chest dialysis catheter site clean , no drainage, no erythema, no tenderness) Cardiovascular: + pertinent finding (irregular, s1, s2, no murmur) Abdomen / GI: normal bowel sounds, non tender, soft, no organomegaly Extremities: + swelling (1-2+ b/l legs), + pertinent finding (pulses, b/l feet, <1+ ) Neurologic/Psychiatric: alert, oriented x 3 Skin: + pertinent finding (large linear ulceration, right distal nowak, with serous drainage but no erythema or odor; 2 separate shallow ulcerations, left nowak, without erythema or significant drainage ) Hospital Course HISTORY OF PRESENT ILLNESS: The patient is a 62-year-old male who was referred to the emergency department after being at dialysis where he developed hypotension, increased temperature and increased heart rate. Upon arrival in the emergency department his systolic blood pressure was in the low 60s, and heart rate was up in the 140s and he was in atrial flutter with variable block. The patient was given 2 boluses of 500 ML's of normal saline, albumin 25 g IV, digoxin 0.125 mg IV, and referral was made to the ICU. The patient himself had no complaints but he was noted to have significant bilateral lower extremity cellulitis. HOSPITAL COURSE: 1. septic shock 2nd to MRSA bacteremia - following admission to the ICU the patient required pressors for a period of time. These were gradually weaned off. Blood cultures from admission were ultimately positive for MRSA. The source of his MRSA bacteremia was felt to be from multiple ulcerations on his legs as well as cellulitis of the legs. The dialysis catheter was felt to be a potential source but less likely. He was treated with IV vancomycin during his stay and his fever resolved, vitals improved, and repeat blood cultures x 4 sets remained negative. Surface echocardiogram did not demonstrate obvious vegetations but the study was quite limited. The patient's cellulitis resolved and the ulcerations also improved. Plan at discharge is as follows - 1. vancomycin IV on dialysis days (//Sat) for at least 2 weeks 2. vancomycin "lock therapy" (vancomycin 5mg/mL + heparin 5000units/mL) in an attempt to salvage his hemodialysis catheter in the event this was, in fact, a source for his bacteremia 3. outpatient transesophageal echocardiogram to definitively rule out endocarditis as the 2D echo was quite limited 2. a flutter - rates improved quickly once admitted to the ICU. He will continue on coreg and digoxin after discharge. Discharge INR was 2.8. He was supratherapeutic on a daily dose of 5mg at time of hospital admission. His INR also escalated quickly once his coumadin was restarted later in his course. Thus, he was recommended to take 2.5mg of coumadin daily upon discharge. Repeat INR will be needed within 4-5 days of discharge to ensure stability. Hopefully home health can perform his INR checks. 3. chronic systolic CHF - compensated at discharge. He will continue his coreg and lasix. He is not a candidate for AKI/ARB due to ESRD. 4. ESRD on HD //Sat - will continue to dialyze at the [facility]. Due to his MRSA bacteremia it was recommended that he see Dr. Marilin ERIC after discharge for fistula creation. 5. ulcers on shins - likely combination of venous stasis disease and peripheral artery disease contributing to these. Enterostomy recommended aquacel silver with optifoam dressings to be changed every 48 hours. Home health will be arranged to assist with dressing changes and to monitor the ulcers. We discussed that his dopplers of the arterial circulation showed PAD and that he needs follow-up with Dr. Gaston for such. 6. uncontrolled T2DM - hemoglobin a1c's have consistently been quite high. Prior to this hospital stay he had been taking lantus 20 units at . We had a lengthy discussion about meal-time insulin and that without such he would have ongoing troubles with his skin ulcers, infections, atherosclerotic disease, etc. He stated he was willing to try meal-time insulin in the form of novolog. If financially feasible he will attempt to take 5 units of novolog with breakfast, lunch, and dinner. 7. CAD / PAD - apparently he has been statin intolerant in the past. Thus, he remains off statins. The patient also reported he had not taken plavix in quite a long time but had been taking aspirin. Thus, he will remain on aspirin 81mg once daily along with beta brenda. 8. diabetic peripheral neuropathy - will remain on gabapentin 100mg BID. 9. dialysis-associated hypotension - since initiating dialysis for his ESRD he has had ongoing hypotension during dialysis sessions. Thus he was initiated on midodrine 5mg TID. On day of discharge a considerable amount of time was spent reconciling his medications. We reviewed each medication in detail. He brought a "brown bag" of medication bottles on day of discharge and these were checked carefully. He also apparently has a "basket" of medication bottles at home full of old medications and I asked him to sit down with the home health nurse and discard old and/or discontinued medications. Total Time Spent: Greater than 30 minutes This includes examination of the patient, discharge planning, medication reconciliation, and communication with other providers. Discharge Instructions Please refer to the electronic Patient Visit Report (Discharge Instructions) for additional information. Follow-Up 1. hemodialysis, [facility], on Saturday05/28/[address] Rodriguez, PCP, within 5-7 days 3. will need ROBERTO within the next 2 weeks to exclude endocarditis - date/time to be arranged Additional Copies To Jacinto Jackman M.D.; Erlin Ballesteros M.D.; Tomás Rodriguez M.D.; Dona Max MD; Ar Gaston M.D.
[2017-06-17] MEDS ORDERED: LACTULOSE SYRUP 20 GM/30 ML UDC PO PRN (15:15)
[2017-06-17] MEDS ORDERED: DAPTOmycin IV 600 MG in SODIUM CHLORIDE 0.9% 50ML 50 ML IV SCH (15:15)
[2017-06-17] MEDS ORDERED: DIGOXIN 0.125 MG TAB PO SCH (16:00)
[2017-06-17] MEDS ORDERED: MIDODRINE 2.5 MG TAB PO SCH (17:00)
[2017-06-17] MEDS ORDERED: FUROSEMIDE 40 MG TAB PO SCH (21:00)
[2017-06-17] MEDS ORDERED: NEPHROCAPS PO SCH (21:00)
[2017-06-17] MEDS ORDERED: CARVEDILOL 12.5 MG TAB PO SCH (21:00)
[2017-06-17] MEDS ORDERED: SERTRALINE HCL 50 MG TAB PO SCH (21:00)
[2017-06-17] MEDS ORDERED: GABAPENTIN 100 MG CAP PO SCH (21:00)
[2017-06-17] MEDS ORDERED: INSULIN GLARGINE SOLOSTAR 100 UNITS/ML 3 ML PEN SC SCH (21:00)
[2017-06-18] MEDS ORDERED: OMEGA-3 (PURIFIED FISH OIL) 1 GM CAP PO SCH (09:00)
[2017-06-20] MEDS ORDERED: ZLF50 PO (16:52)
[2017-06-20] MEDS ORDERED: DAPT500I IV (16:54)
== END 2017-05-26 16:07 | disposition home health service (06) | DRG 871 ==
LOC: C.EDB 12:57 → C.MSICU 14:56 → ENRESERV 15:57 → C.2E 05-24 18:13
PROVIDERS: ADMIT Hospitalist; ATTEND Internal Medicine
PROC: 06HN33Z Insertion of Infusion Device into Left Femoral Vein, Percutaneous Approach (ICD-10-PCS; principal; 2017-05-21)
PROC: 05JY3ZZ Inspection of Upper Vein, Percutaneous Approach (ICD-10-PCS; 2017-05-21)
PROC: 05JY3ZZ Inspection of Upper Vein, Percutaneous Approach (ICD-10-PCS; 2017-05-21)
DX: A41.9 Sepsis, unspecified organism (principal); R65.21 Severe sepsis with septic shock; N18.6 End stage renal disease; I48.92 Unspecified atrial flutter; I13.2 Hypertensive heart and chronic kidney disease with heart failure and with stage 5 chronic kidney disease, or end stage renal disease; L03.115 Cellulitis of right lower limb; L03.116 Cellulitis of left lower limb; I24.8 Other forms of acute ischemic heart disease; I50.22 Chronic systolic (congestive) heart failure; L97.929 Non-pressure chronic ulcer of unspecified part of left lower leg with unspecified severity; L97.919 Non-pressure chronic ulcer of unspecified part of right lower leg with unspecified severity; F17.200 Nicotine dependence, unspecified, uncomplicated; Z79.82 Long term (current) use of aspirin; Z79.02 Long term (current) use of antithrombotics/antiplatelets; E11.22 Type 2 diabetes mellitus with diabetic chronic kidney disease; Z86.14 Personal history of Methicillin resistant Staphylococcus aureus infection; G52.1 Disorders of glossopharyngeal nerve; I73.9 Peripheral vascular disease, unspecified; E11.42 Type 2 diabetes mellitus with diabetic polyneuropathy; I65.29 Occlusion and stenosis of unspecified carotid artery; Z91.19 Patient's noncompliance with other medical treatment and regimen; D63.1 Anemia in chronic kidney disease; I48.91 Unspecified atrial fibrillation; I25.10 Atherosclerotic heart disease of native coronary artery without angina pectoris; Z95.1 Presence of aortocoronary bypass graft; I25.2 Old myocardial infarction; Z87.891 Personal history of nicotine dependence; T50.3X5A Adverse effect of electrolytic, caloric and water-balance agents, initial encounter

== ENCOUNTER → 2017-06-13 | Day surgery (SDC) | payer OTHER ==
[~2017-06-13] VITALS: Ht 180.3 cm; Wt 94.0 kg
[2017-06-13] VITALS (9 sets, daily range): BP systolic 93–125; BP diastolic 60–88; PULSE 69–74; TEMP 36.7; O2SAT 90–99; Ht 180.3 cm; Wt 94.0 kg
[~2017-06-13] MED LIST changes: +B-COCAP20 PO; -CIPR1TAB10 PO; +DAPT500I IV; +DOCU-94 PO; -ENOX30IN4 SQ; -GABA-112 PO; +GABA1CAP PO; -GLYB5TAB3 PO; -HYDR-5688 PO; +INSDGI SC; -INSDGIPEN SC; +INSU1MIS SC; +LACT10SO17 PO; +LIDOCAINE HCL 2% 2 ML VIAL (20MG/ML) ONE; -LOVEN; +MIDO5TAB PO; +NTRGSL/4 UT; +NVLG SC; +NovoLIN-R INSULIN PER UNIT CHARGE ONE; +OMEG10007 PO; +PROPOFOL IV EMULSION 10 MG/ML 20 ML VIAL IV ONE; +PSYL48.59; +VANC1INJ94 IV; +ZLF50 PO
--- NOTE | 2017-06-13 07:45 | History & Physical Bridge Note ---
H&P Re-Evaluation Bridge Note: I have examined the patient, reviewed the History & Physical and in the interval since the performance of the History & Physical I have noted the following changes of clinical significance: Was recently hospitalized with bacteremia. ROBERTO ordered by hospitalist service. No changes noted
--- NOTE | 2017-06-13 08:28 | Cardiology Procedure Brief Nt ---
Preliminary Cardiology Note Procedure Date Jun 13, 2017. 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 Recommendations ID consultation. Pt was taking outpatient antibiotics. ID physician paged to discuss treatment arrangements. 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
--- NOTE | 2017-06-13 08:28 | Anesthesiology Progress Note ---
Anesthesia Post Op Note Date & Time Jun 13, 2017 at 08:27 Vital Signs Pain Intensity: 0 Vital Signs Past 12 Hours Date Time Temp Pulse Resp B/P (MAP) Pulse Ox O2 Delivery O2 Flow Rate FiO2 06/13/17 08:20 73 16 106/74 (85) 96 Room Air 06/13/17 08:16 74 16 98/71 98 Room Air 06/13/17 08:11 72 16 110/60 91 Nasal Cannula 4 06/13/17 08:06 72 16 95/68 91 Nasal Cannula 4 06/13/17 08:01 69 16 93/63 91 Nasal Cannula 4 06/13/17 07:56 70 16 102/66 91 Nasal Cannula 4 06/13/17 07:51 70 16 100/70 90 Nasal Cannula 4 06/13/17 07:46 70 16 125/88 99 Nasal Cannula 4 06/13/17 07:16 36.7 73 18 107/74 96 Room Air Notes Mental Status: alert / awake / arousable, participated in evaluation Pt Amnestic to Procedure: Yes Nausea / Vomiting: adequately controlled Pain: adequately controlled Airway Patency, RR, SpO2: stable & adequate BP & HR: stable & adequate Hydration State: stable & adequate Anesthetic Complications: no major complications apparent The patient's preop BSG was 384. He was treated with 10 unit regular insulin IV. Postop BSG was 352. I spoke to the nurse at his dialysis center and they are aware. The patient tolerated the procedure well.
--- NOTE | 2017-06-13 08:59 | Discharge Instructions ---
Discharge Instructions Date of Service Jun 13, 2017. 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 Please make sure you take your diabetic medication. Activity Recommendations Activity Limitations: per Instructions/Follow-up section Anesthesia . Post Anesthesia Instructions: If you have had General Anesthesia or IV Sedation: * Do not drive today. * Resume driving when surgeon permits. * Do not make important decisions or sign legal documents today. * Call surgeon for: 1. Temperature elevations greater than 101 degrees F. 2. Uncontrollable pain. 3. Excessive bleeding. 4. Persistent nausea and vomiting. 5. Medication intolerance (nausea, vomiting or rash). * For nausea and vomiting use only clear liquids such as: tea, soda, bouillon until nausea subsides, then gradually increase diet as tolerated. * If you have any concerns or questions, call your surgeon's office. If physician is unavailable and it is an emergency, call 911 or go to the nearest emergency room. . Instructions / Follow-Up Instructions / Follow-Up INFECTIOUS DISEASE CONSULTATION: 1. Appointment today with Dr. Fernandez. When leaving the hospital, please go directly to her office to arrange for appropriate therapy. ACTIVITY RECOMMENDATIONS: Resume activities as tolerated with no limitations unless specified. __ No lifting over _10_ pounds for 24 hours. __ Do not engage in vigorous exercise, sexual activity, or sports for 24 hours. __ Do not drive or operate any motorized equipment for 24 hours. __ You may return to work/school tomorrow. __ Nothing to eat or drink until gag reflex returns. __ No HOT or WARM liquids for _8_ hours. __ Avoid "scratchy" foods such as potato chips or pretzels for 24 hours following procedure. SPECIAL CARE: If you experience coughing up or vomiting of blood, contact ___[phone] Diet Recommendations Recommended Home Diet: resume previous diet Procedures Procedures Performed: Transesophageal echocardiogram Pending Studies Studies pending at discharge: no Medical Emergencies . Who to Call and When: Medical Emergencies: If at any time you feel your situation is an emergency, please call 911 immediately. . Non-Emergent Contact Non-Emergency issues call your: Primary Care Provider, Unload Associate . . "Provider Documentation" section prepared by Josafat Gregory. .
[2017-06-13 09:18] LABS: ISTAT CREATININE 3.7 mg/dl (0.6-1.3); ISTAT HEMOGLOBIN 11.2 g/dl (14.0-18.0); ISTAT IONIZED CALCIUM 1.17 mmol/l (1.12-1.32)
--- NOTE | 2017-06-13 13:45 | TEE ---
*NOTICE TO RECEIVING LIBERTARIAN AGENCY This information is strictly Confidential and protected under [place] law. [place] law prohibits you from making any further disclosure of this information unless further disclosure is expressly permitted by the written consent of the person to whom it pertains or is authorized by law. A general authorization for the release of medical or other information is not sufficient for this purpose. Hospital accepts no responsibility if the information is made available to any other person, INCLUDING THE PATIENT. Interpretation Summary * Name: RUBINA SALAZAR Study Date: 06/13/2017 07:17 AM BP: 107/74 mmHg * Patient Location: [facility] HR: 69 * : 1955 (M/d/yyyy) Gender: Male Height: 71 in * Age: 62 yrs Ethnicity: CA Weight: 208 lb * Ordering Physician: BROOKE ALEMAN MD / SUSANNA VASQUEZ MD * Performed By: Klarissa Hurtado RCS * * Reason For Study: MRSA BACTEREMIA * BSA: 2.1 m2 * -- Conclusions -- * ROBERTO: * 1. Mildly dilated left ventricle with moderately reduced systolic function. Akinesis of the inferior wall. Otherwise, global hypokinesis, with relative sparing of the anterior wall. Estimated EF 35-40%. Mild to moderate concentric left ventricular hypertrophy. * 2. Small mobile echodensity which appears to be attached to right coronary cusp; consider vegetation. * 3. There is mild mitral regurgitation. * 4. Pt tolerated procedure well, without known complication. * 5. Infectious disease consultation was recommended. He has been treated with 2 weeks IV antibiotics for known bacteremia. An appointment was made with infectious disease specialist, Dr. Fernandez, immediately upon discharge from his outpatient transesophageal echo. He is hemodynamically stable and therefore continued outpatient therapy was recommended. Patient was discussed with Dr. Fernandez. Procedure Details * ROBERTO Probe #1 utilized for procedure. * Time out was conducted by the physician, nurse, and device repair technician with positive identification of patient and procedure. * Informed consent for Transesophageal Echocardiogram was obtained prior to the procedure. * An intravenous line was placed. A topical anesthetic agent was used for oropharangeal anesthesia. A bite block was inserted. * Sedation performed by the anesthesia department. * SEDATION START TIME: 740 SEDATION END TIME: 808 MEDS USED BY ANESTHESIA: 40 MG LIDOCAINE, 200 MG PROPOFOL * The posterior oropharynx was anesthetized using a topical anesthetic spray. A bite guard was inserted. * A multifrequency, multiplane transesopheageal echocardiographic endoscope was inserted and manipulated in the standard fashion to achieve multiplane views. * The transesophageal probe was passed without difficulty. * The usual views were obtained; basal, mid-esophageal, transgastric and aortic views. * The patient tolerated the procedure well without evidence of orophangeal or esophageal trauma. * A 2D transesophageal echocardiogram with spectral and color flow Doppler was performed. * Contrast injection with agitated saline was performed. * A 2D transesophageal echocardiogram with Doppler and color flow Doppler was performed. Left Ventricle * Mildly dilated left ventricle with moderately reduced systolic function. Akinesis of the inferior wall. Otherwise, global hypokinesis, with relative sparing of the anterior wall. Estimated EF 35-40%. Mild to moderate concentric left ventricular hypertrophy. Atria * The left atrial size is normal. * No thrombus is detected in the left atrial appendage. * Right atrial size is normal. * No visualized ASD or PFO via 2D imaging, color Doppler, or following injection of agitated saline. Mitral Valve * The mitral valve leaflets appear normal. There is no evidence of stenosis, fluttering, or prolapse. * There is no mitral valve stenosis. * There is mild mitral regurgitation. Tricuspid Valve * The tricuspid valve is not well visualized, but is grossly normal. * There is no tricuspid stenosis. * There is trace tricuspid regurgitation. Aortic Valve * The aortic valve is trileaflet. * Small mobile echodensity which appears to be attached to right coronary cusp; consider vegetation. * The aortic valve opens well. * No aortic regurgitation is present. Pulmonic Valve * The pulmonic valve is not well seen, but is grossly normal. * There is no significant pulmonary regurgitation. Great Vessels * The aortic root is normal size. * Moderate atherosclerosis noted in thoracic descending aorta. * Blunted pulmonary venous flow pattern. Pericardium * There is no pericardial effusion. Right Ventricle * Mildly dilated right ventricle with normal systolic function. MMode 2D Measurements and Calculations IVSd 1.3 cm LVIDd 5.9 cm LVPWd 1.4 cm IVS/LVPW 0.91 EDV(Teich) 171.0 ml EDV(cubed) 202.0 ml LV mass(C)d 357.4 grams LV mass(C)dI 166.7 grams/m\S\2 Ao root diam 3.4 cm Ao root area 9.3 cm\S\2 asc Aorta Diam 3.2 cm LVOT diam 2.2 cm LVOT area 4.0 cm\S\2 LVAd ap4 32.2 cm\S\2 LVLd ap4 8.0 cm EDV(MOD-sp4) 105.4 ml EDV(sp4-el) 109.8 ml LVAs ap4 25.1 cm\S\2 LVLs ap4 7.3 cm ESV(MOD-sp4) 73.3 ml ESV(sp4-el) 73.0 ml EF(MOD-sp4) 30.5 % EF(sp4-el) 33.6 % LVAd ap2 42.7 cm\S\2 LVLd ap2 8.8 cm EDV(MOD-sp2) 174.6 ml EDV(sp2-el) 175.1 ml LVAs ap2 31.2 cm\S\2 LVLs ap2 8.1 cm ESV(MOD-sp2) 102.6 ml ESV(sp2-el) 102.5 ml EF(MOD-sp2) 41.2 % EF(sp2-el) 41.5 % LVLd %diff 9.3 % EDV(MOD-bp) 142.2 ml LVLs %diff 9.3 % ESV(MOD-bp) 90.1 ml EF(MOD-bp) 36.7 % SV(MOD-sp4) 32.2 ml SI(MOD-sp4) 15.0 ml/m\S\2 SV(MOD-sp2) 71.9 ml SI(MOD-sp2) 33.6 ml/m\S\2 SV(MOD-bp) 52.1 ml SI(MOD-bp) 24.3 ml/m\S\2 SV(sp4-el) 36.9 ml SI(sp4-el) 17.2 ml/m\S\2 SV(sp2-el) 72.7 ml SI(sp2-el) 33.9 ml/m\S\2 Doppler Measurements and Calculations MV E max aretha 100.9 cm/sec MV dec time 0.19 sec MR max aretha 464.6 cm/sec MR max PG 86.3 mmHg TR max aretha 262.1 cm/sec
== END | disposition home or self-care (01) ==
LOC: C.CATH 05:54
PROVIDERS: ATTEND Internal Medicine
DX: R78.81 Bacteremia (principal); B95.62 Methicillin resistant Staphylococcus aureus infection as the cause of diseases classified elsewhere; I48.91 Unspecified atrial fibrillation; I35.8 Other nonrheumatic aortic valve disorders; I33.0 Acute and subacute infective endocarditis; E11.42 Type 2 diabetes mellitus with diabetic polyneuropathy

== ENCOUNTER → 2017-06-13 | Outpatient (CLI) | payer OTHER ==
[~2017-06-13] MED LIST changes: -LIDOCAINE HCL 2% 2 ML VIAL (20MG/ML) ONE; -NovoLIN-R INSULIN PER UNIT CHARGE ONE; -PROPOFOL IV EMULSION 10 MG/ML 20 ML VIAL IV ONE
[2017-06-13 10:37] LABS: HEMATOCRIT 32.1 % (42-52); MEAN CORPUSCULAR HEMOGLOBIN 28.7 pg (25-34); MEAN CORPUSCULAR HGB CONC 31.2 g/dl (32-36); RED BLOOD COUNT 3.49 M/uL (4.7-6.1); WHITE BLOOD COUNT 5.47 K/uL (4.8-10.8)
[2017-06-13 10:43] LABS: INR 1.4 (0.9-1.1); PROTHROMBIN TIME (PATIENT) 15.7 SECONDS (9.0-12.0)
[2017-06-13 10:47] LABS: ALT/SGPT 17 U/L (12-78); BLOOD UREA NITROGEN 17 mg/dl (7-18); BUN/CREATININE RATIO 4.8 (10-20); CALCIUM 9.1 mg/dl (8.5-10.1); CARBON DIOXIDE 30 mmol/L (21-32); CHLORIDE 97 mmol/L (98-107); GLUCOSE 287 mg/dl (70-99); POTASSIUM 3.4 mmol/L (3.5-5.1); SODIUM 137 mmol/L (136-145)
[2017-06-13 10:50] LABS: ALB/GLOB RATIO 0.8 (0.9-2); ALKALINE PHOSPHATASE 192 U/L (45-117); AST/SGOT 13 U/L (15-37)
[2017-06-13 10:59] LABS: MEAN PLATELET VOLUME 11.4 fL (7.4-10.4); PLATELET COUNT 82 K/uL (130-400)
[2017-06-13 11:06] LABS: ANISOCYTOSIS PRESENT; BASO % 0.4 %; BASO ABS # 0.02 K/uL (0-0.2); COMPLETE YES; EOS % 5.3 %; IG% 1.1 %; LYMPH % 12.4 %; LYMPH ABS # 0.68 K/uL (1.2-3.4); MONO % 7.1 %; NEUT % 73.7 %; PLT ESTIMATE DECREASED
== END | disposition home or self-care (01) ==
LOC: C.LAB1850 09:29
PROVIDERS: ATTEND Internal Medicine Infectious Disease
DX: I48.91 Unspecified atrial fibrillation (principal); I35.8 Other nonrheumatic aortic valve disorders; I33.0 Acute and subacute infective endocarditis

== ENCOUNTER 2017-06-17 10:40 | Inpatient (IN) | payer OTHER ==
[~2017-06-17] VITALS: Ht 180.3 cm; Wt 95.7 kg
[~2017-06-17 10:40] MED LIST changes: -DAPT500I IV; -ZLF50 PO
[2017-06-17 13:36] VITALS: BP 112/76; PULSE 76; TEMP 36.4; O2SAT 96; BMI 30.7
--- NOTE | 2017-06-17 14:35 | Medical Student: [facility] ---
Med Student History & Physical Date & Time of Service: Jun 17, 2017 at 14:26 Chief Complaint: Mrsa Bacteremia, Aortic Valve Vegetation Primary Care Physician: Tomás Rodriguez M.D. History of Present Illness Source: patient, family, clinic records, hospital records Pt is a 62 yo male who was treated for MRSA bacteremia during a hospital stay 4 weeks ago. He was discharged to receive vancomycin at dialysis x 14 days and obtain a ROBERTO and see ID outpt. His ROBERTO 4 days ago showed vegetations on the right coronary artery cusp and a LV EF of 35-40% as well as mild mitral regurgitation. He had blood tests done prior to the ID visit, however he did not see the doctor. His blood cultures were negative at this visit. His PCP saw him 3 days ago and discussed the severity of the vegetations found on his valve , however pt refused to be admitted to the hospital at that time. He did agree to be admitted today. Per PCP consult with outpt ID, ID's recommendation was to begin IV daptomycin 6 mg/kg following dialysis. He denies fever, chills, night sweats, chest pain, palpitations, cough. He does not shortness of breath while lying down and on exertion. He notes difficulty walking dt LE edema, but notes the ulcers on his legs are much improved. He denies nausea, vomiting, constipation. States he has been having 1 loose stool per day. He denies, vision or hearing changes, memory loss, focal weakness, painless or painful nodules on hands or feet. Past Medical/Surgical History Medical Problems: (1) Atrial fibrillation with rapid ventricular response Status: Acute (2) Atrial fibrillation with RVR Status: Acute (3) Cellulitis Status: Acute (4) CHF (congestive heart failure) (5) Dehydration Status: Acute (6) Sepsis Status: Acute HTN CAD Family History Father: pertinent history of Mother: cancer Sibling(s): pertinent history of Grandmother: diabetes Social History Smoking Status: Former Smoker Drug Use: none Marital Status: Housing status: lives with family Occupational Status: disabled Immunizations History of Influenza Vaccine: Unknown History of Tetanus Vaccine?: Unknown History of Pneumococcal: Unknown History of Hepatitis B Vaccine: Unknown Allergies Coded Allergies: No Known Allergies (Unverified , 05/21/17) Medications Aspirin (Aspirin EC Low Dose), 81 MG PO QAM B-Complex W/ C & Folic Acid (Renal), 1 CAP PO BID Carvedilol (Carvedilol), 12.5 MG PO BID Digoxin (Digoxin), 0.125 MG PO Q1600 Docusate Sodium (Colace), 100 MG PO DAILY Fish Oil ([place]-3), 1 CAP PO DAILY Furosemide (Lasix), 40 MG PO BID Gabapentin (Neurontin), 1 CAP PO BID Insulin Aspart (Novolog), 5 UNITS SC TIDM Insulin Glargine (Lantus), 20 UNIT SC QPM Lactulose (Chronulac), 15 ML PO BID PRN for Constipation Midodrine Hcl (Midodrine Hcl), 5 MG PO TID Nitroglycerin (Nitrostat), 0.4 MG UT PRN Psyllium (Metamucil) Vancomycin HCl in Sodium Chlor (VANCOMYCIN in NSS), 500 MG IV UD Warfarin Sod (Jantoven), 0.5 TAB PO DAILY Physical Exam General Appearance: WD/WN, no apparent distress Head: normocephalic, atraumatic Eyes: PERRL, EOMI ENT: pharynx normal Neck: supple, no adenopathy, + JVD Respiratory/Chest: lungs clear, normal breath sounds, no respiratory distress, no accessory muscle use Cardiovascular: normal peripheral pulses, + abnormal rhythm (a flutter ) Abdomen/GI: normal bowel sounds, non tender, soft, no organomegaly Back: normal inspection Extremities/Musculoskelatal: + pedal edema, + swelling Neurologic/Psych: alert, normal mood/affect (slightly anxious), normal reflexes , oriented x 3 Skin: normal color, warm/dry, + rash (resolving LE ulcers from chronic venous statis. ) Impression Assessment and Plan Pt is 62 year old male with hx of ESRD on HD with perm cath and MRSA bacteremia who was admitted for treatment of aortic valve septic vegetations. Plan: Neuro * Anxiety and Difficulty Sleeping * Begin Sertraline 50 mg as Rxed by PCP * Diabetic Neuropathy * Continue home Gabapentin 100 mg BID Cardiovascular * Chronic Systolic CHF - ? exacerbation, Atrial flutter * Continue home medications: Carvedilol 12.5 BID, Digoxin 125 mg, Warfarin 0.5 mg, ASA 81 mg * CXR to evaluate extent of pulmonary congestion Pulmonology * No issues at this time. Continue to monitor GI * No Issues at this time. Continue to Monitor. Renal * ESRD on HD - / Schedule * Continue home dose of Lasix 40 mg daily. * BMP daily to monitor electrolytes * Nephrology Consult Endocrine * T2DM * SSI, blood glucose checks per nursing protocol. Infectious Disease * MRSA Endocarditis (Aortic Valve vegetations) * Begin Daptomycin 6mg/kg IV on dialysis days () * Consult Vascular for Perm Cath Removal - Cath is possible site of infxn * Repeat blood cultures - blood cultures from 4 days ago are sterile * Continue to monitor for s/s of septic emboli * ID consult. Hematology * PT/INR to check for therapeutic Warfarin dose * CBC daily - trend WBC count Level of Care Med/Surg Resuscitation Status FULL RESUSCITATION DVT Prophylaxis warfarin (Coumadin)
[2017-06-17] MEDS ORDERED: ONDANSETRON INJ 2 MG/ML 2 ML VIAL IV PRN (15:00)
[2017-06-17] MEDS ORDERED: IV FLUIDS COMPLETED PRN (15:15)
[2017-06-17 15:43] VITALS: BP_SYST 123; BP_SYST 124; BP_DIAS 74; BP_DIAS 84; PULSE 75; PULSE 78; TEMP 36.4; TEMP 37.2; O2SAT 98
[2017-06-17 16:00] VITALS: O2SAT 96
[2017-06-17 16:13] LABS: BASO % 0.3 %; BASO ABS # 0.02 K/uL (0-0.2); COMPLETE YES; EOS % 4.9 %; HEMATOCRIT 29.9 % (42-52); IG% 1.2 %; LYMPH % 12.8 %; LYMPH ABS # 0.88 K/uL (1.2-3.4); MEAN CELL VOLUME 90.1 fL (80-100); MEAN CORPUSCULAR HEMOGLOBIN 29.5 pg (25-34); MEAN CORPUSCULAR HGB CONC 32.8 g/dl (32-36); MONO % 4.9 %; NEUT % 75.9 %; PLATELET COUNT 116 K/uL (130-400); RED BLOOD COUNT 3.32 M/uL (4.7-6.1); WHITE BLOOD COUNT 6.88 K/uL (4.8-10.8)
[2017-06-17 16:24] LABS: INR 1.3 (0.9-1.1); PROTHROMBIN TIME (PATIENT) 13.8 SECONDS (9.0-12.0)
[2017-06-17] MEDS ORDERED: LACTULOSE SYRUP 10 GM/15 ML BTL 473 ML PO PRN (16:30)
[2017-06-17] MEDS ORDERED: NITROGLYCERIN 0.4 MG SL PER TAB CHARGE UT SCH (16:30)
--- NOTE | 2017-06-17 16:35 | DIAGNOSTIC IMAGING REPORT ---
CHEST 2 VIEWS ROUTINE CLINICAL HISTORY: CHF? Dyspnea COMPARISON STUDY: 05/23/2017 FINDINGS: Mild cardiomegaly post median sternotomy. Catheter in superior vena cava. Moderate prominence of pulmonary vasculature. Diaphragms are smooth. IMPRESSION: Pulmonary vascular congestion. The above report was generated using voice recognition software. It may contain grammatical, syntax or spelling errors. Electronically signed by: Seth Gao M.D. 06/17/2017 4:34 PM Dictated Date/Time: 06/17/2017 4:33 PM
[2017-06-17 16:44] LABS: BUN/CREATININE RATIO 5.2 (10-20); CALCIUM 9.2 mg/dl (8.5-10.1); CREATININE 3.6 mg/dl (0.60-1.40); POTASSIUM 3.5 mmol/L (3.5-5.1)
[2017-06-17] MEDS ORDERED: INSULIN ASPART 100 UNITS/ML 3 ML PEN SC SCH ×2 (16:45→21:00)
[2017-06-17] MEDS ORDERED: DEXTROSE 50% 50 ML SYR IV PRN (17:00)
[2017-06-17] MEDS ORDERED: GLUCOSE 40% GEL 15 GM TUBE PO PRN (17:00)
[2017-06-17] MEDS ORDERED: GLUCAGON FOR INJ 1 MG VIAL SQ PRN (17:00)
[2017-06-17] MEDS ORDERED: GLUCOSE 10 TABS/TUBE PO PRN (17:00)
[2017-06-17 17:02] LABS: BETA-HYDROXYBUTYRATE 2.17 mg/dL (0.2-2.81)
[2017-06-17] MEDS: MIDODRINE 2.5 MG TAB PO SCH (17:33)
[2017-06-17] MEDS: INSULIN ASPART 100 UNITS/ML 3 ML PEN SC SCH ×2 (17:34→20:36)
[2017-06-17] MEDS ORDERED: DAPTOmycin IV 600 MG in SODIUM CHLORIDE 0.9% 50ML 50 ML IV SCH (18:00)
[2017-06-17] MEDS: DIGOXIN 0.125 MG TAB PO SCH (19:08)
--- NOTE | 2017-06-17 19:10 | Nephrology Consultation ---
Nephrology Consultation Date & Providers Date of Consultation: Jun 17, 2017. Primary Care Provider: Tomás Rodriguez M.D. Referring Provider: Reason for Consultation ESRD History of Present Illness Rubio Montgomery is a 62-year-old male with ESRD. Medical history is notable for CAD s/p CABG, hypertension, diabetes mellitus, and atrial fibrillation. Nephrology consultation was requested to assist with the management of ESRD including hemodialysis. Medical records from multiple prior admissions and recent imaging were reviewed. Rubio has renal failure related to microvascular disease, hypertensive nephrosclerosis and diabetic nephropathy. He was recently admitted to [facility] in April 2017 with decompensated CHF, atrial flutter and advanced renal failure associated with cardiorenal syndrome. He was rate controlled and started on anticoagulation. Rubio required hemodialysis at that time. A tunneled dialysis catheter was placed. Unfortunately, Rubio was subsequently readmitted rapid atrial flutter and lower extremity cellulitis. He had sepsis with MRSA bacteremia. Cultures cleared quickly with vancomycin. Rubio was admitted today after transesophageal echocardiogram noted a small mobile echodensity attached to the right coronary cusp. Rubio had missed ID follow up. He had completed 14 days of vancomycin. Patient denies having any fevers or chills. He does have dyspnea on exertion. He denies having any chest pain or chest pressure. He denies having any orthopnea or paroxysmal nocturnal dyspnea. He is experiencing severe leg swelling. He notes that this has not significantly improved with hemodialysis. He has preserved urine output. Diabetes has been poorly controlled. It is noted that he has not been taking the short-acting insulin or checking his sugars at home. Based on INR monitoring, it is also not clear if Rubio has been taking Coumadin as prescribed. Rubio reports significant anxiety which is largely related to his recent medical complications and chronic medical conditions. Rubio is on dialysis Saturday, , Saturday at [facility]. His last hemodialysis treatment was completed on Saturday. He denies any complications with the treatment. Past Medical/Surgical History Medical: ESRD on HD Ischemic cardiomyopathy Systolic CHF, LVEF 25% CAD HTN DM II Surgical: TDC placement, May 01 2017 CABG in 2013 PCI in 2002 Allergies Coded Allergies: No Known Allergies (Unverified , 05/21/17) Inpatient Medications Current Inpatient Medications Medications (Trade) Dose Ordered Sig/Mikie Route Start Time Stop Time Status Last Admin Dose Admin Ondansetron HCl (Zofran Inj) 4 mg Q6H PRN IV 06/17/17 15:00 07/17/17 14:59 Miscellaneous (Iv Fluids Completed) 1 ea PRN PRN N/A 06/17/17 15:15 06/17/18 15:14 Aspirin (Ecotrin Tab) 81 mg QAM PO 06/18/17 09:00 07/18/17 08:59 Vitamin B Complex/ Vit C/Folic Acid (Nephrocaps) 1 cap BID PO 06/17/17 21:00 07/17/17 20:59 Carvedilol (Coreg Tab) 12.5 mg BID PO 06/17/17 21:00 07/17/17 20:59 Digoxin (Lanoxin Tab) 0.125 mg DAILY@1600 PO 06/17/17 17:30 07/17/17 17:29 Docusate Sodium (coLACE CAP) 100 mg DAILY PO 06/18/17 09:00 07/18/17 08:59 Fish Oil ([place]-3 (Purified Fish Oil) Cap) 1 gm DAILY PO 06/18/17 09:00 07/18/17 08:59 Furosemide (Lasix Tab) 40 mg BID PO 06/17/17 21:00 07/17/17 20:59 Gabapentin (Neurontin Cap) 100 mg BID PO 06/17/17 21:00 07/17/17 20:59 Insulin Glargine (Lantus Solostar Pen) 20 units QPM SC 06/17/17 21:00 07/17/17 20:59 Lactulose (Chronulac Syrup) 10 gm BID PRN PO 06/17/17 16:30 07/17/17 16:29 Nitroglycerin (Nitrostat Tab) 0.4 mg PRN UT 06/17/17 16:30 07/17/17 16:29 Midodrine (Proamatine Tab) 5 mg TID@08,12,17 PO 06/17/17 17:00 07/17/17 16:59 06/17/17 17:33 5 MG Daptomycin 600 mg/ Sodium Chloride 62 ml @ 100 mls/hr DAILY@1800 IV 06/17/17 18:00 07/29/17 17:59 Sertraline HCl (Zoloft Tab) 25 mg HS PO 06/17/17 21:00 07/17/17 20:59 Glucose (Glucose 40% Gel) 15-30 GRAMS 15 GRAMS... UD PRN PO 06/17/17 17:00 07/17/17 16:59 Glucose (Glucose Chew Tab) 4-8 Tablets 4 Tabl... UD PRN PO 06/17/17 17:00 07/17/17 16:59 Dextrose (Dextrose 50% 50ML Syringe) 25-50ML OF 50% DW IV FOR... UD PRN IV 06/17/17 17:00 07/17/17 16:59 Glucagon (Glucagon Inj) 1 mg UD PRN SQ 06/17/17 17:00 07/17/17 16:59 Insulin Aspart (novoLOG ASPART) SLIDING SCALE G... ACHS SC 06/17/17 17:45 07/17/17 17:44 06/17/17 17:34 9 UNITS Family History No pertinent family history Social History Smoking Status: Former Smoker Drug Use: none Marital Status: Housing Status: lives with family Occupation: disabled Review of Systems A complete review of systems was performed. Pertinent positives are noted above. All other systems are negative. Physical Exam Date Time Temp Pulse Resp B/P (MAP) Pulse Ox O2 Delivery O2 Flow Rate FiO2 06/17/17 15:43 37.2 75 17 123/74 (90) 98 Nasal Cannula 2.0 06/17/17 15:43 36.4 78 20 124/84 (97) 98 Room Air 06/17/17 13:36 36.4 76 16 112/76 96 Room Air General Appearance: WD/WN, no apparent distress Head: normocephalic, atraumatic Eyes: normal inspection, sclerae normal ENT: normal ENT inspection, pharynx normal Neck: supple, + JVD, + pertinent finding (RIJ HD catheter) Respiratory/Chest: lungs clear, no respiratory distress, no accessory muscle use Cardiovascular: regular rate, rhythm, no gallop, no murmur Abdomen/GI: non tender, soft Extremities/Musculoskelatal: + pertinent finding (+ 4 BL LE edema) Neurologic/Psych: alert, normal mood/affect Skin: normal color, no rash Laboratory Results Last 24 Hours Test 06/17/17 15:55 06/17/17 16:15 White Blood Count 6.88 K/uL Red Blood Count 3.32 M/uL Hemoglobin 9.8 g/dL Hematocrit 29.9 % Mean Corpuscular Volume 90.1 fL Mean Corpuscular Hemoglobin 29.5 pg Mean Corpuscular Hemoglobin Concent 32.8 g/dl Platelet Count 116 K/uL Mean Platelet Volume 11.0 fL Neutrophils (%) (Auto) 75.9 % Lymphocytes (%) (Auto) 12.8 % Monocytes (%) (Auto) 4.9 % Eosinophils (%) (Auto) 4.9 % Basophils (%) (Auto) 0.3 % Neutrophils # (Auto) 5.22 K/uL Lymphocytes # (Auto) 0.88 K/uL Monocytes # (Auto) 0.34 K/uL Eosinophils # (Auto) 0.34 K/uL Basophils # (Auto) 0.02 K/uL RDW Standard Deviation 56.1 fL RDW Coefficient of Variation 16.9 % Immature Granulocyte % (Auto) 1.2 % Immature Granulocyte # (Auto) 0.08 K/uL Prothrombin Time 13.8 SECONDS Prothromb Time International Ratio 1.3 Sodium Level 135 mmol/L Potassium Level 3.5 mmol/L Chloride Level 97 mmol/L Carbon Dioxide Level 27 mmol/L Anion Gap 11.0 mmol/L Blood Urea Nitrogen 19 mg/dl Creatinine 3.60 mg/dl Est Creatinine Clear Calc Drug Dose 25.6 ml/min Estimated GFR () 19.9 Estimated GFR (Non- 17.2 BUN/Creatinine Ratio 5.2 Random Glucose 351 mg/dl Calcium Level 9.2 mg/dl Beta-Hydroxybutyric Acid 2.17 mg/dL Digoxin Level 0.9 ng/ml Bedside Glucose 335 mg/dl Impression (1) ESRD (end stage renal disease) on dialysis (2) Endocarditis (3) Atrial flutter (4) Anemia Rubio is a 62-year-old gentlemen with ESRD on hemodialysis Saturday, , Saturday via right IJ tunnel dialysis catheter. Has hypertension, diabetes mellitus, coronary artery disease, CHF (LVEF 35%) with right-sided heart failure as well as atrial fibrillation/flutter. He was recently admitted to [facility] with sepsis due to MRSA bacteremia and lower extremity cellulitis. Cultures cleared quickly. He was treated with 14 days of vancomycin and antibiotic lock therapy. Unfortunately, he now has evidence of IE. Repeat cultures pending. Afebrile and no stigmata on exam otherwise. Recommendations -- Blood pressure, volume status and electrolytes are currently appropriate -- Plan HD tomorrow AM. Dialysis nurse has been alerted to start treatment first available in the morning -- Orders for HD have been entered, no heparin with HD -- Following dialysis, permcath is to be removed -- A window of at least 48 hours is suggested prior to placing a new catheter -- Furosemide increased to 80 mg daily -- Daptomycin post HD for 6 weeks planned with appropriate weekly monitoring of labs including CPK -- Renal diet with 1 L daily fluid restriction -- EPO to be given with HD
[2017-06-17] MEDS ORDERED: DAPTOMYCIN CONSULT ACTIVE PRN ×2 (19:15)
[2017-06-17 19:22] VITALS: BP 110/74; PULSE 78; TEMP 36.6; O2SAT 96
--- NOTE | 2017-06-17 19:30 | History and Physical ---
History & Physical Date & Time of Service: Jun 17, 2017 at 15:52 Chief Complaint: Mrsa Bacteremia, Aortic Valve Vegetation Primary Care Physician: Tomás Rodriguez M.D. History of Present Illness Source: patient, hospital records 62yo male with ESRD on HD, PAD, T2DM, chronic systolic CHF, a. flutter on coumadin, and CAD s/p CABG presenting as a direct admission for recently discovered aortic valve endocarditis. In late April/early May the patient had septic shock due to MRSA bacteremia. The source was presumed to be from multiple ulcers of his lower extremities. He was treated with IV vancomycin and the plan was for a minimum course of 2 weeks. He was also undergoing "lock" therapy to preserve his current dialysis catheter. He ultimately underwent an outpatient ROBERTO by Dr. Josafat Goyal who discovered an aortic valve vegetation. Dr. Goyal's records indicated that he was referred to Dr. Myra Fernandez in the infectious disease clinic and was to report THAT day for ongoing antibiotic management. However, the patient missed that appointment. Multiple attempts were made since the ROBERTO to reach the patient to review his care plan without success. Finally, success was achieved in reaching the patient and he was asked to be directly admitted for ongoing care. Records from 06/13/17 show that blood cultures from that date were negative and other blood work was stable. He states "I feel fine" and denies any fever, chills, loss of appetite, TIA symptoms, etc. He does report chronic orthopnea. He reports compliance with his insulin regimen but was unable to give me any specific fingerstick blood sugar values during my admission assessment. Past Medical/Surgical History PMH: 1. a. fib/flutter 2. ESRD on HD //Sat 3. diabetic polyneuropathy 4. T2DM - uncontrolled 5. chronic systolic CHF - EF 35-40% 6. [place] [facility] [place] CABG was preceded by NSTEMI 7. PAD 8. prior tobacco dependence 9. carotid stenosis 10. aortic valve endocarditis 11. recent MRSA bacteremia with septic shock PSH: 1. CABG - 5-vessel - [facility] - 2013 2. hernia repair (inguinal) 3. appendectomy 4. CEA for carotid stenosis 5. right IJ dialysis catheter insertion Family History mother - oral cancer father - hepatitis C from blood transfusion? 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) Immunizations History of Influenza Vaccine: Unknown History of Tetanus Vaccine?: Unknown History of Pneumococcal: Unknown History of Hepatitis B Vaccine: Unknown Multi-Drug Resistant Organisms History of MDRO: Yes Type of MDRO: MRSA Allergies Coded Allergies: No Known Allergies (Unverified , 05/21/17) Home Medications Scheduled Aspirin (Aspirin EC Low Dose), 81 MG PO QAM B-Complex W/ C & Folic Acid (Renal), 1 CAP PO BID Carvedilol (Carvedilol), 12.5 MG PO BID Digoxin (Digoxin), 0.125 MG PO Q1600 Docusate Sodium (Colace), 100 MG PO DAILY Fish Oil ([place]-3), 1 CAP PO DAILY Furosemide (Lasix), 40 MG PO BID Gabapentin (Neurontin), 1 CAP PO BID Insulin Aspart (Novolog), 5 UNITS SC TIDM Insulin Glargine (Lantus), 20 UNIT SC QPM Midodrine Hcl (Midodrine Hcl), 5 MG PO TID Nitroglycerin (Nitrostat), 0.4 MG UT PRN Vancomycin HCl in Sodium Chlor (VANCOMYCIN in NSS), 500 MG IV UD Warfarin Sod (Jantoven), 0.5 TAB PO DAILY Scheduled PRN Lactulose (Chronulac), 15 ML PO BID PRN for Constipation Miscellaneous Medications Psyllium (Metamucil) Review of Systems Constitutional: No fever, No chills, No weakness, No fatigue Eyes: No worsening of vision ENT: No nasal symptoms, No sore throat Respiratory: No cough, No sputum, No shortness of breath, No dyspnea on exertion, No dyspnea at rest Cardiovascular: + orthopnea, + edema, No PND Abdomen: + diarrhea, No pain, No nausea, No vomiting, No GI bleeding Musculoskeletal: No joint pain Genitourinary - Male: No dysuria Neurologic: + numbness/tingling (hands/feet), No memory loss Psychiatric: + anxiety, No depression symptoms Endocrine: No fatigue Hematologic / Lymphatic: No abnormal bleeding/bruising Integumentary: No rash Physical Exam Vital Signs Date Time Temp Pulse Resp B/P (MAP) Pulse Ox O2 Delivery O2 Flow Rate FiO2 06/17/17 15:43 37.2 75 17 123/74 (90) 98 Nasal Cannula 2.0 06/17/17 15:43 36.4 78 20 124/84 (97) 98 Room Air 06/17/17 13:36 36.4 76 16 112/76 96 Room Air General Appearance: no apparent distress Head: normocephalic, atraumatic Eyes: PERRL ENT: hearing grossly normal, pharynx normal Neck: supple, no adenopathy, thyroid normal, + JVD Respiratory/Chest: lungs clear, no respiratory distress, no accessory muscle use Cardiovascular: regular rate, rhythm, no gallop, no murmur, + abnormal peripheral pulses (feet, 1+ b/l) Abdomen/GI: normal bowel sounds, non tender, soft, no organomegaly Back: normal inspection Extremities/Musculoskelatal: + pedal edema, + swelling (firm edema extending from feet to mid-calf b/l, at least 1-2+ b//l ) Neurologic/Psych: no motor/sensory deficits, alert, normal mood/affect, normal reflexes, oriented x 3 Skin: + pertinent finding (stasis changes b/l shins, numerous healed ulcers on shins) permcath, right upper chest - clean, no redness, no drainage Diagnostics Laboratory Results Results Past 24 Hours Test 06/17/17 15:08 Range/Units Microbiology Results 06/17/17 Blood Culture, Ordered Pending 06/17/17 Blood Culture, Ordered Pending Impression Assessment and Plan 62yo male with ESRD on HD, PAD, T2DM, chronic systolic CHF, a. flutter on coumadin, and CAD s/p CABG. Presenting as a direct admission to coordinate care surrounding his recently discovered aortic valve endocarditis in the setting of recent MRSA bacteremia. At this point it is assumed that his tunneled dialysis catheter is infected and should be removed. 1. recent MRSA bacteremia, now with evidence of aortic valve endocarditis - * ID consultation to assist with antibiotic management; daptomycin for now * repeat blood cx's x 2 sets now; fortunately his blood cx's from 06/13/17 thus far remain negative * vascular surgery consultation with Dr. Gaston to remove current HD catheter and ultimately replace with new catheter * fortunately he is quite stable from ID standpoint * of note - has completed 2 weeks of IV vancomycin prior to this admission 2. ESRD on HD - nephrology consultation to assist with HD needs. 3. a. flutter - rates controlled with BB and digoxin; check digoxin level. Hold coumadin in anticipation of placing new HD catheter. 4. T2DM - uncontrolled. Resume lantus 20 units HS. Novolog - ac/hs - start with correction of 35 with carb ratio of 1:12. 5. chronic systolic CHF - most recent EF was 35-40% - cont BB and lasix. Not AKI/ARB candidate due to ESRD. Will speak with nephrology about whether additional fluid can be pulled during HD sessions to assist with lower extremity edema. 6. PAD - continue aspirin therapy. He apparently, by history, is statin intolerant. 7. diabetic neuropathy - gabapentin 100mg BID. 8. CAD - continue BB, aspirin. NO ischemic symptoms at this time. 9. dyspnea - check cxr, r/o pulmonary edema. 10. DVT proph - hold coumadin due to impending vascular surgery. Restart coumadin once surgeries have been completed. 11. SW consult - patient reports having financial difficulty paying hospital bills, etc. Level of Care Telemetry Advanced Directives Existing Living Will: No Existing Power of Financial Systems Administrator: No Resuscitation Status FULL RESUSCITATION VTE Prophylaxis VTE Risk Assessment Done? Y/N: Yes Risk Level: High Given or contraindicated: Warfarin (Coumadin) Social Service Consult Receiving Home Health Note total time about 60 minutes, to be placed on observation status Additional Copies To Tomás Rodriguez M.D.; Dona Max MD; Ar Gaston M.D.
[2017-06-17 20:00] VITALS: O2SAT 96
[2017-06-17] MEDS: CARVEDILOL 12.5 MG TAB PO SCH (20:23)
[2017-06-17] MEDS: FUROSEMIDE 40 MG TAB PO SCH (20:24)
[2017-06-17] MEDS: NEPHROCAPS PO SCH (20:25)
[2017-06-17] MEDS: GABAPENTIN 100 MG CAP PO SCH (20:25)
[2017-06-17] MEDS: SERTRALINE HCL 50 MG TAB PO SCH (20:31)
[2017-06-17] MEDS: INSULIN GLARGINE SOLOSTAR 100 UNITS/ML 3 ML PEN SC SCH (20:37)
[2017-06-17 23:57] VITALS: BP 109/73; PULSE 77; TEMP 36.3; O2SAT 95
[2017-06-18] VITALS (24 sets, daily range): BP systolic 12–145; BP diastolic 55–80; PULSE 60–104; TEMP 36.4–37; O2SAT 91–98; BMI 28.9
[2017-06-18] MEDS: INSULIN ASPART 100 UNITS/ML 3 ML PEN SC SCH ×4 (07:00→20:50)
[2017-06-18] MEDS: GABAPENTIN 100 MG CAP PO SCH ×2 (08:44→20:53)
[2017-06-18] MEDS: NEPHROCAPS PO SCH ×2 (08:44→20:54)
[2017-06-18] MEDS: MIDODRINE 2.5 MG TAB PO SCH ×3 (08:45→17:00)
[2017-06-18] MEDS: DOCUSATE SODIUM 100 MG CAP PO SCH (08:46)
[2017-06-18] MEDS: OMEGA-3 (PURIFIED FISH OIL) 1 GM CAP PO SCH (08:46)
[2017-06-18] MEDS: FUROSEMIDE 40 MG TAB PO SCH ×2 (08:46→20:53)
[2017-06-18] MEDS: ASPIRIN 81 MG ECTAB PO SCH (08:46)
--- NOTE | 2017-06-18 08:50 | Progress Note ---
Progress Note Date of Service Jun 18, 2017. Progress Note Patient for permcath removal due to sepsis. I have discussed the risks options and benefits of the procedure with the patient. The patient understands the risks options and benefits and agrees to the procedure. I have examined the patient, reviewed the History & Physical and in the interval since the performance of the History & Physical I have noted the following changes of clinical significance: No changes noted
--- NOTE | 2017-06-18 08:56 | Medical Consult ---
Consultation Note Date of Service Jun 18, 2017. Consultation Note Chief Complaint Sepsis, possibly infected permcath History of Present Illness The patient is a 62 year old male with multiple medical problems, including ESRD on HD, known to Dr Gaston for permcath insertion and future AV access for HD, admitted to [facility] for sepsis, and had his permcath removed and a new one placed. The new one too appears to be infected and he was found to have valve vegetations. Pt admits fatigue, malaise, fever, but is poor historian and appears mildly confused. States he feels better since coming to hospital and has had chronic ulcers to RLE. Denies CORREIA, chills, chest pain, SOB,a db pain, N/V , rest pain, claudication, other complaints. Allergies Coded Allergies: No Known Allergies (Unverified , 05/21/17) Home Medications Scheduled Aspirin (Aspirin EC Low Dose), 81 MG PO QAM Carvedilol (Carvedilol), 12.5 MG PO BID Ciprofloxacin Hcl (Cipro), 500 MG PO HS Clopidogrel (Plavix), 75 MG PO DAILY Digoxin (Digoxin), 0.125 MG PO Q1600 Docusate Sodium (Colace), 100 MG PO DAILY Fish Oil ([place]-3), 1 CAP PO DAILY Furosemide (Lasix), 40 MG PO DAILY Gabapentin (Neurontin), 800 MG PO TID Glyburide (Diabeta), 10 MG PO DAILY Insulin Aspart (Novolog Penfill), 8 UNITS SC TIDM Insulin Glargine (Lantus), 20 UNIT SC QPM Lactulose (Chronulac), 15 ML PO QID Metoprolol Succ (Toprol Xl) (Toprol-Xl), 25 MG PO DAILY Nitroglycerin (Nitrostat), 0.4 MG UT PRN Warfarin Sod (Jantoven), 5 MG PO QAM Scheduled PRN Hydrocodone-Acetaminophen (Hydrocodone Bitartrate/Ac), 5 MG PO Q4H PRN for Pain Lorazepam (Ativan), 0.5 MG PO Q6H PRN for Anxiety Miscellaneous Medications Psyllium (Metamucil) Problem List Medical Problems: (1) Acute renal failure (2) Afib (3) Anemia (4) Atrial flutter (5) CHF (congestive heart failure) (6) Chronic systolic CHF (congestive heart failure) (7) CKD (chronic kidney disease) stage 4, GFR 15-29 ml/min (8) Diabetic polyneuropathy (9) ESRD (end stage renal disease) on dialysis (10) Hyperphosphatemia (11) Metabolic acidosis (12) Volume overload Surgical / Medical History Hx Cardiac Surgery: Yes (CABG) Hx Abdominal Surgery: No Hx Cancer Surgery: No Hx Thoracic Surgery: No Hx Orthopedic: No Hx Urinary Tract Surgery: No HX Other Surgery: No Past Medical/Surgical History: Diabetes, Heart Disease, High Cholesterol, Hypertension, Kidney Disease Family History No pertinent family history + DMII, HTN Social History Smoking Status: Former Smoker Hx Tobacco Use In Past Year?: No Hx Alcohol Use - Type & Amnt: No Hx Substance Use -Type & Amnt: No Review of Systems Constitutional: + fever, + malaise, No chills Skin: No change in color Eyes: No visual changes ENMT: No sore throat Respiratory: No cough, No ROMANO, No short of breath Cardiovascular: + edema, No chest pain, No palpitations, No syncope, No intermittent claudication Gastrointestinal: No abdominal pain, No nausea, No vomiting Neurologic: No dizziness, No headache, No numbness, No tingling Physical Exam Constitutional: General Apperance: well-nourished, well-developed, obese Level of Distress: NAD, acutely ill, chronically ill Psychiatric: Mental Status: active & alert, confused Orientation: to place, to person, not oriented to time Memory: recent memory abnormal (vague), remote memory abnormal (vague) Head: normocephalic, atraumatic Eyes: EOM: EOMI ENMT: normal ENT inspection, hearing grossly normal Neck: supple, trachea midline Lungs: Respiratory effort: no dyspnea Auscultation: breath sounds normal, no rhonchi Cardiovascular: Apical Impulse: not displaced, pertinent finding (R IJ permcath without erythema edema, discharge or tenderness.) Heart Auscultation: no murmurs, no gallops Peripheral Pulses: Pulses: full and equal, in all extremities except if noted Bruits: none appreciated Brachial Pulses: normal on the left, normal on the right Radial Pulse: normal on the left, normal on the right Femoral Pulse: normal on the left, normal on the right Posterior Tibialis Pulse: decreased on the left, decreased on the right Dorsalis Pedis Pulse: decreased on the left, decreased on the right Abdomen: Bowel Sounds: normal Inspection & Palpation: soft, non-distended, no tenderness, guarding & rebound Musculoskeletal: normal strength (5/5 throughout), normal tone Extremities: Upper Right: no cyanosis, no edema Upper Left: no cyanosis, no edema, no varicosities Lower Right: no cyanosis, no varicosities, no palpable cord, edema, ulcers Lower Left: no cyanosis, no varicosities, no palpable cord, edema Neurologic: Cranial Nerves: grossly intact Sensation: grossly intact Assessment and Plan ASSESSMENT and PLAN: Sepsis/bacteremia ESRD on HD Plan: Recommend removal of permcath and a rest period then reinsertion. I have discussed the risks options and benefits of the procedure with the patient. The patient understands the risks options and benefits and agrees to the procedure.
--- NOTE | 2017-06-18 08:57 | Procedure Note ---
Pre-Mod Sedation Assessment General Date of Moderate Sedation: Jun 18, 2017. Vital Signs: Vital Signs Past 12 Hours Date Time Temp Pulse Resp B/P (MAP) Pulse Ox O2 Delivery O2 Flow Rate FiO2 06/18/17 08:45 78 114/71 06/18/17 08:30 78 97/69 06/18/17 08:15 93 145/74 06/18/17 08:00 77 110/74 06/18/17 07:56 77 105/71 06/18/17 07:54 36.9 104 22 104/68 (80) 93 Room Air 06/18/17 07:50 36.5 74 101/64 (76) 06/18/17 04:00 96 Room Air 06/18/17 03:19 37.0 75 19 91/64 (73) 91 Room Air 06/18/17 00:00 96 Room Air 06/18/17 00:00 96 Room Air 06/17/17 23:57 36.3 77 20 109/73 (85) 95 Room Air Review Cardiovascular: normal peripheral pulses, + abnormal rhythm (a flutter ) Abdomen: normal bowel sounds, non tender, soft, no organomegaly Lungs: lungs clear, normal breath sounds, no respiratory distress, no accessory muscle use Pre-Sedation Airway Assessment Oral Cavity: Dental Abnormalities Smoking Status: Former Smoker (quit 5 years; 1 ppd x 15 years) Mallampati Classification: Class I ASA Classification: Class III Notes The planned sedation has been discussed with the patient and consent obtained. I have identified the patient, determined the appropriateness of sedation and have assessed the patient immediately prior to the procedure. All medicine(s) and interventions are by my order.
--- NOTE | 2017-06-18 09:11 | Nephrology Progress Note ---
Nephrology Progress Note Date of Service Jun 18, 2017. Chief Complaint ESRD Subjective No acute events overnight. Rubio was seen and evaluated during hemodialysis this morning. Plan of care was discussed with vascular surgery team. Rubio feels well this morning. He denies fevers or chills. Qb appropriate. No complications with HD. Review of Systems A complete review of systems was performed. Pertinent positives are noted above. All other systems are negative. Vital Signs Last 8 Hrs Date Time Temp Pulse Resp B/P (MAP) Pulse Ox O2 Delivery O2 Flow Rate FiO2 06/18/17 09:00 76 113/72 06/18/17 08:45 78 114/71 06/18/17 08:30 78 97/69 06/18/17 08:15 93 145/74 06/18/17 08:00 77 110/74 06/18/17 07:56 77 105/71 06/18/17 07:54 36.9 104 22 104/68 (80) 93 Room Air 06/18/17 07:50 36.5 74 101/64 (76) 06/18/17 04:00 96 Room Air 06/18/17 03:19 37.0 75 19 91/64 (73) 91 Room Air Last Recorded Weight Weight (Kilograms): 96.400 Physical Exam General Appearance: WD/WN, no apparent distress Head: normocephalic, atraumatic Eyes: normal inspection, sclerae normal ENT: normal ENT inspection, pharynx normal Neck: supple, no JVD, + pertinent finding ([facility] HD permcath) Respiratory/Chest: lungs clear, no respiratory distress, no accessory muscle use Cardiovascular: regular rate, rhythm, no gallop Abdomen/GI: non tender, soft Extremities/Musculoskelatal: normal inspection, + pedal edema Neurologic/Psych: alert, normal mood/affect Family History No pertinent family history Social History Smokeless Tobacco Use: No Alcohol Use: none Drug Use: none Marital Status: (lives with & son) Housing Status: lives with family 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) Laboratory Results Past 24 Hours 06/17/17 15:55 Red Blood Count 3.32, Mean Corpuscular Volume 90.1, Mean Corpuscular Hemoglobin 29.5, Mean Corpuscular Hemoglobin Concent 32.8, Mean Platelet Volume 11.0, Neutrophils (%) (Auto) 75.9, Lymphocytes (%) (Auto) 12.8, Monocytes (%) (Auto) 4.9, Eosinophils (%) (Auto) 4.9, Basophils (%) (Auto) 0.3, Neutrophils # (Auto) 5.22, Lymphocytes # (Auto) 0.88, Monocytes # (Auto) 0.34, Eosinophils # (Auto) 0.34, Basophils # (Auto) 0.02 06/17/17 15:55 Test 06/17/17 15:55 06/17/17 16:15 06/17/17 20:30 06/18/17 00:00 White Blood Count 6.88 K/uL (4.8-10.8) Red Blood Count 3.32 M/uL (4.7-6.1) Hemoglobin 9.8 g/dL (14.0-18.0) Hematocrit 29.9 % (42-52) Mean Corpuscular Volume 90.1 fL (80-100) Mean Corpuscular Hemoglobin 29.5 pg (25-34) Mean Corpuscular Hemoglobin Concent 32.8 g/dl (32-36) Platelet Count 116 K/uL (130-400) Mean Platelet Volume 11.0 fL (7.4-10.4) Neutrophils (%) (Auto) 75.9 % Lymphocytes (%) (Auto) 12.8 % Monocytes (%) (Auto) 4.9 % Eosinophils (%) (Auto) 4.9 % Basophils (%) (Auto) 0.3 % Neutrophils # (Auto) 5.22 K/uL (1.4-6.5) Lymphocytes # (Auto) 0.88 K/uL (1.2-3.4) Monocytes # (Auto) 0.34 K/uL (0.11-0.59) Eosinophils # (Auto) 0.34 K/uL (0-0.5) Basophils # (Auto) 0.02 K/uL (0-0.2) RDW Standard Deviation 56.1 fL (36.4-46.3) RDW Coefficient of Variation 16.9 % (11.5-14.5) Immature Granulocyte % (Auto) 1.2 % Immature Granulocyte # (Auto) 0.08 K/uL (0.00-0.02) Prothrombin Time 13.8 SECONDS (9.0-12.0) Prothromb Time International Ratio 1.3 (0.9-1.1) Anion Gap 11.0 mmol/L (3-11) Est Creatinine Clear Calc Drug Dose 25.6 ml/min Estimated GFR () 19.9 Estimated GFR (Non- 17.2 BUN/Creatinine Ratio 5.2 (10-20) Calcium Level 9.2 mg/dl (8.5-10.1) Beta-Hydroxybutyric Acid 2.17 mg/dL (0.2-2.81) Digoxin Level 0.9 ng/ml (0.8-2.0) Bedside Glucose 335 mg/dl (70-99) 353 mg/dl (70-99) 232 mg/dl (70-99) Test 06/18/17 06:25 Bedside Glucose 154 mg/dl (70-99) Allergies Coded Allergies: No Known Allergies (Unverified , 05/21/17) Medications Current Inpatient Medications Medications (Trade) Dose Ordered Sig/Mikie Route Start Time Stop Time Status Last Admin Dose Admin Ondansetron HCl (Zofran Inj) 4 mg Q6H PRN IV 06/17/17 15:00 07/17/17 14:59 Miscellaneous (Iv Fluids Completed) 1 ea PRN PRN N/A 06/17/17 15:15 06/17/18 15:14 Aspirin (Ecotrin Tab) 81 mg QAM PO 06/18/17 09:00 07/18/17 08:59 06/18/17 08:46 81 MG Vitamin B Complex/ Vit C/Folic Acid (Nephrocaps) 1 cap BID PO 06/17/17 21:00 07/17/17 20:59 06/18/17 08:44 1 CAP Carvedilol (Coreg Tab) 12.5 mg BID PO 06/17/17 21:00 07/17/17 20:59 06/17/17 20:23 12.5 MG Digoxin (Lanoxin Tab) 0.125 mg DAILY@1600 PO 06/17/17 17:30 07/17/17 17:29 06/17/17 19:08 0.125 MG Docusate Sodium (coLACE CAP) 100 mg DAILY PO 06/18/17 09:00 07/18/17 08:59 06/18/17 08:46 100 MG Fish Oil ([place]-3 (Purified Fish Oil) Cap) 1 gm DAILY PO 06/18/17 09:00 07/18/17 08:59 06/18/17 08:46 1 GM Furosemide (Lasix Tab) 40 mg BID PO 06/17/17 21:00 07/17/17 20:59 06/18/17 08:46 40 MG Gabapentin (Neurontin Cap) 100 mg BID PO 06/17/17 21:00 07/17/17 20:59 06/18/17 08:44 100 MG Insulin Glargine (Lantus Solostar Pen) 20 units QPM SC 06/17/17 21:00 07/17/17 20:59 06/17/17 20:37 20 UNITS Lactulose (Chronulac Syrup) 10 gm BID PRN PO 06/17/17 16:30 07/17/17 16:29 Nitroglycerin (Nitrostat Tab) 0.4 mg PRN UT 06/17/17 16:30 07/17/17 16:29 Midodrine (Proamatine Tab) 5 mg TID@08,12,17 PO 06/17/17 17:00 07/17/17 16:59 06/18/17 08:45 5 MG Sertraline HCl (Zoloft Tab) 25 mg HS PO 06/17/17 21:00 07/17/17 20:59 06/17/17 20:31 25 MG Glucose (Glucose 40% Gel) 15-30 GRAMS 15 GRAMS... UD PRN PO 06/17/17 17:00 07/17/17 16:59 Glucose (Glucose Chew Tab) 4-8 Tablets 4 Tabl... UD PRN PO 06/17/17 17:00 07/17/17 16:59 Dextrose (Dextrose 50% 50ML Syringe) 25-50ML OF 50% DW IV FOR... UD PRN IV 06/17/17 17:00 07/17/17 16:59 Glucagon (Glucagon Inj) 1 mg UD PRN SQ 06/17/17 17:00 07/17/17 16:59 Insulin Aspart (novoLOG ASPART) SLIDING SCALE G... ACHS SC 06/17/17 17:45 07/17/17 17:44 06/17/17 20:36 7 UNITS Daptomycin 600 mg/ Sodium Chloride 62 ml @ 100 mls/hr Q48H IV 06/19/17 18:00 07/31/17 17:59 Daptomycin (Consult) 1 ea UD PRN N/A 06/17/17 19:15 07/17/17 19:14 Epoetin Omi (Procrit Inj) 4,000 units ONE IV 06/18/17 08:15 07/18/17 08:14 UNV Impression (1) ESRD (end stage renal disease) on dialysis (2) Endocarditis (3) Atrial flutter (4) Anemia Rubio is a 62-year-old gentlemen with ESRD on hemodialysis Saturday, , Saturday via right IJ tunnel dialysis catheter. Has hypertension, diabetes mellitus, coronary artery disease, CHF (LVEF 35%) with right-sided heart failure as well as atrial fibrillation/flutter. He was recently admitted to [facility] with sepsis due to MRSA bacteremia and lower extremity cellulitis. Cultures cleared quickly. He was treated with 14 days of vancomycin and antibiotic lock therapy. Unfortunately, he now has evidence of IE. Repeat cultures pending. Afebrile and no stigmata on exam otherwise. Plan for permcath removal following HD today. Recommendations -- 3K bath, UF goal ~3 kg -- Qb appropriate -- Epogen 4000 with HD -- Following dialysis, permcath is to be removed -- A window of at least 48 hours is suggested prior to placing a new catheter -- Furosemide increased to 80 mg daily -- Daptomycin post HD for 6 weeks planned with appropriate weekly monitoring of labs including CPK -- Renal diet with 1 L daily fluid restriction
[2017-06-18] MEDS: CARVEDILOL 12.5 MG TAB PO SCH ×2 (09:45→20:54)
[2017-06-18] MEDS ORDERED: EPOETIN ALFA 4000 UNITS/ML VIAL IV SCH (10:00)
--- NOTE | 2017-06-18 11:12 | Medical Consult ---
Consultation Date of Consultation: Jun 18, 2017. Attending Physician: Leroy Bustillo MD Reason for Consultation: MRSA endocarditis History of Present Illness 62-year-old male with history of end-stage renal disease on dialysis, diabetes mellitus, chronic heart failure, who was hospitalized at the end of April with Staph aureus sepsis, thought to be from lower extremity cellulitis with ulceration. Was treated with a course of vancomycin with improvement. On subsequent follow-up, he was found on transesophageal echocardiogram to have aortic valve vegetation. He had blood cultures drawn, but only returns now for admission to the hospital for further management. As discussed, patient has been started on daptomycin. He is awaiting removal of his dialysis catheter later today. He denies any significant fever, has had some fatigue. No obvious embolic phenomenon noted. Has been tolerating daptomycin thus far. Past Medical/Surgical History Medical Problems: (1) Atrial fibrillation with rapid ventricular response Status: Acute (2) Atrial fibrillation with RVR Status: Acute (3) Cellulitis Status: Acute (4) Dehydration Status: Acute (5) Sepsis Status: Acute Medical Problems: (1) Acute renal failure (2) Afib (3) Anemia (4) Atrial flutter (5) CHF (congestive heart failure) (6) Chronic systolic CHF (congestive heart failure) (7) CKD (chronic kidney disease) stage 4, GFR 15-29 ml/min (8) Diabetic polyneuropathy (9) Endocarditis (10) ESRD (end stage renal disease) on dialysis (11) Hyperphosphatemia (12) Metabolic acidosis (13) Volume overload Family History No pertinent family history Social History Smoking Status: Former Smoker (quit 5 years; 1 ppd x 15 years) Smokeless Tobacco Use: No Alcohol Use: none Drug Use: none Marital Status: (lives with & son) Housing Status: lives with family 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) Allergies Coded Allergies: No Known Allergies (Unverified , 05/21/17) Current Inpatient Medications Current Inpatient Medications Medications (Trade) Dose Ordered Sig/Mikie Route Start Time Stop Time Status Last Admin Dose Admin Ondansetron HCl (Zofran Inj) 4 mg Q6H PRN IV 06/17/17 15:00 07/17/17 14:59 Miscellaneous (Iv Fluids Completed) 1 ea PRN PRN N/A 06/17/17 15:15 06/17/18 15:14 Aspirin (Ecotrin Tab) 81 mg QAM PO 06/18/17 09:00 07/18/17 08:59 06/18/17 08:46 81 MG Vitamin B Complex/ Vit C/Folic Acid (Nephrocaps) 1 cap BID PO 06/17/17 21:00 07/17/17 20:59 06/18/17 08:44 1 CAP Carvedilol (Coreg Tab) 12.5 mg BID PO 06/17/17 21:00 07/17/17 20:59 06/18/17 09:45 12.5 MG Digoxin (Lanoxin Tab) 0.125 mg DAILY@1600 PO 06/17/17 17:30 07/17/17 17:29 06/17/17 19:08 0.125 MG Docusate Sodium (coLACE CAP) 100 mg DAILY PO 06/18/17 09:00 07/18/17 08:59 06/18/17 08:46 100 MG Fish Oil (North-3 (Purified Fish Oil) Cap) 1 gm DAILY PO 06/18/17 09:00 07/18/17 08:59 06/18/17 08:46 1 GM Furosemide (Lasix Tab) 40 mg BID PO 06/17/17 21:00 07/17/17 20:59 06/18/17 08:46 40 MG Gabapentin (Neurontin Cap) 100 mg BID PO 06/17/17 21:00 07/17/17 20:59 06/18/17 08:44 100 MG Insulin Glargine (Lantus Solostar Pen) 20 units QPM SC 06/17/17 21:00 07/17/17 20:59 06/17/17 20:37 20 UNITS Lactulose (Chronulac Syrup) 10 gm BID PRN PO 06/17/17 16:30 07/17/17 16:29 Nitroglycerin (Nitrostat Tab) 0.4 mg PRN UT 06/17/17 16:30 07/17/17 16:29 Midodrine (Proamatine Tab) 5 mg TID@08,12,17 PO 06/17/17 17:00 07/17/17 16:59 06/18/17 08:45 5 MG Sertraline HCl (Zoloft Tab) 25 mg HS PO 06/17/17 21:00 07/17/17 20:59 06/17/17 20:31 25 MG Glucose (Glucose 40% Gel) 15-30 GRAMS 15 GRAMS... UD PRN PO 06/17/17 17:00 07/17/17 16:59 Glucose (Glucose Chew Tab) 4-8 Tablets 4 Tabl... UD PRN PO 06/17/17 17:00 07/17/17 16:59 Dextrose (Dextrose 50% 50ML Syringe) 25-50ML OF 50% DW IV FOR... UD PRN IV 06/17/17 17:00 07/17/17 16:59 Glucagon (Glucagon Inj) 1 mg UD PRN SQ 06/17/17 17:00 07/17/17 16:59 Insulin Aspart (novoLOG ASPART) SLIDING SCALE G... ACHS SC 06/17/17 17:45 07/17/17 17:44 06/17/17 20:36 7 UNITS Daptomycin 600 mg/ Sodium Chloride 62 ml @ 100 mls/hr Q48H IV 06/19/17 18:00 07/31/17 17:59 Daptomycin (Consult) 1 ea UD PRN N/A 06/17/17 19:15 07/17/17 19:14 Epoetin Omi (Procrit Inj) 4,000 units TODAY@1000 IV 06/18/17 10:00 06/18/17 18:00 06/18/17 10:29 4,000 UNITS Review of Systems All systems were reviewed and are negative except as per HPI Physical Exam Date Time Temp Pulse Resp B/P (MAP) Pulse Ox O2 Delivery O2 Flow Rate FiO2 06/18/17 10:45 76 96/55 06/18/17 10:30 60 101/56 06/18/17 10:15 78 105/65 06/18/17 10:00 78 93/62 06/18/17 09:45 78 112/75 06/18/17 09:30 77 112/74 06/18/17 09:15 77 117/80 06/18/17 09:00 76 113/72 06/18/17 08:45 78 114/71 06/18/17 08:30 78 97/69 06/18/17 08:15 93 145/74 06/18/17 08:00 Room Air 06/18/17 08:00 77 110/74 06/18/17 07:56 77 105/71 06/18/17 07:54 36.9 104 22 104/68 (80) 93 Room Air 06/18/17 07:50 36.5 74 101/64 (76) 06/18/17 04:00 96 Room Air 06/18/17 03:19 37.0 75 19 91/64 (73) 91 Room Air 06/18/17 00:00 96 Room Air 06/18/17 00:00 96 Room Air 06/17/17 23:57 36.3 77 20 109/73 (85) 95 Room Air 06/17/17 20:00 96 Room Air 06/17/17 19:22 36.6 78 18 110/74 (86) 96 Room Air 06/17/17 19:08 92 06/17/17 16:00 96 Room Air 2.0 06/17/17 15:43 37.2 75 17 123/74 (90) 98 Nasal Cannula 2.0 06/17/17 15:43 36.4 78 20 124/84 (97) 98 Room Air 06/17/17 13:36 36.4 76 16 112/76 96 Room Air General Appearance: WD/WN, no apparent distress Head: normocephalic, atraumatic Eyes: normal inspection, EOMI, sclerae normal ENT: normal ENT inspection, hearing grossly normal, pharynx normal Neck: supple, no adenopathy, thyroid normal, trachea midline Respiratory/Chest: chest non-tender, lungs clear, normal breath sounds, no respiratory distress Cardiovascular: regular rate, rhythm, no gallop, + systolic murmur Abdomen/GI: normal bowel sounds, non tender, soft, no organomegaly Back: normal inspection, no CVA tenderness Extremities/Musculoskelatal: no calf tenderness, non-tender, + pertinent finding (Chronic venous stasis changes) Neurologic/Psych: alert, oriented x 3 Skin: normal color, no rash, + pertinent finding (Lower extremity with chronic venous stasis changes, catheter site appears without infection) Lymphatic: no adenopathy Laboratory Results Date/Time Source Procedure Growth Status 06/17/17 16:02 Blood Blood Culture Pending Received 06/17/17 15:55 Blood Blood Culture Pending Received Last 24 Hours Test 06/17/17 15:55 06/17/17 16:15 06/17/17 20:30 06/18/17 00:00 White Blood Count 6.88 K/uL Red Blood Count 3.32 M/uL Hemoglobin 9.8 g/dL Hematocrit 29.9 % Mean Corpuscular Volume 90.1 fL Mean Corpuscular Hemoglobin 29.5 pg Mean Corpuscular Hemoglobin Concent 32.8 g/dl Platelet Count 116 K/uL Mean Platelet Volume 11.0 fL Neutrophils (%) (Auto) 75.9 % Lymphocytes (%) (Auto) 12.8 % Monocytes (%) (Auto) 4.9 % Eosinophils (%) (Auto) 4.9 % Basophils (%) (Auto) 0.3 % Neutrophils # (Auto) 5.22 K/uL Lymphocytes # (Auto) 0.88 K/uL Monocytes # (Auto) 0.34 K/uL Eosinophils # (Auto) 0.34 K/uL Basophils # (Auto) 0.02 K/uL RDW Standard Deviation 56.1 fL RDW Coefficient of Variation 16.9 % Immature Granulocyte % (Auto) 1.2 % Immature Granulocyte # (Auto) 0.08 K/uL Prothrombin Time 13.8 SECONDS Prothromb Time International Ratio 1.3 Sodium Level 135 mmol/L Potassium Level 3.5 mmol/L Chloride Level 97 mmol/L Carbon Dioxide Level 27 mmol/L Anion Gap 11.0 mmol/L Blood Urea Nitrogen 19 mg/dl Creatinine 3.60 mg/dl Est Creatinine Clear Calc Drug Dose 25.6 ml/min Estimated GFR () 19.9 Estimated GFR (Non- 17.2 BUN/Creatinine Ratio 5.2 Random Glucose 351 mg/dl Calcium Level 9.2 mg/dl Beta-Hydroxybutyric Acid 2.17 mg/dL Digoxin Level 0.9 ng/ml Bedside Glucose 335 mg/dl 353 mg/dl 232 mg/dl Test 06/18/17 06:25 Bedside Glucose 154 mg/dl Assessment & Plan 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 Patient should continue on daptomycin adjusted for his renal insufficiency, and will require 6 weeks of therapy. To watch carefully for embolic phenomenon. Dialysis catheter to be removed. Will follow.
[2017-06-18] MEDS ORDERED: LIDOCAINE HCL 1% 20 ML VIAL INJ ONE ×2 (11:47→11:48)
--- NOTE | 2017-06-18 11:53 | [facility] Post Operative Brief Note ---
Immediate Operative Summary Operative Date Jun 18, 2017. Pre-Operative Diagnosis Infected permcath Post-Operative Diagnosis same Procedure(s) Performed Removal of permcath Surgeon Marilin Vocational Trainer Surgeon(s) Fabby Olivares MD Estimated Blood Loss 0 Findings catheter and cuff removed Specimens cath sent for culture Anesthesia Local Complication(s) None Disposition
--- NOTE | 2017-06-18 11:56 | [facility] Operative Report ---
Operative Report Operative Date Jun 18, 2017. Pre-Operative Diagnosis Infected permcath Post-Operative Diagnosis same Procedure(s) Performed Removal of permcath Surgeon Marilin Area Plant Manager Surgeon(s) Fabby Olivares MD Estimated Blood Loss 0 Findings catheter and cuff removed Fluids none Specimens cath sent for culture Drains none Anesthesia Local Complication(s) None Disposition Recovery Room / PACU Indications Mr. Montgomery was admitted with bactermia and endocarditis. It was recommended he have his tunnelled HD catheter removed. He was advised of the risk and benefits of the procedure and agreed to undergo removal. Description of Procedure The patient was taken to the angio suite and placed in the supine position. The right side of the neck, chest wall and catheter were prepped and draped in a sterile manner. Local anesthesia was then accomplished. Using sharp and blunt dissection, the cuff of the permcath was freed up from the surrounding fibrous tissue. The permcath and cuff were completely removed. Pressure was then applied and adequate hemostasis was obtained. A sterile dressing was then applied. The patient left the angio suite in good condition and tolerated the procedure well. I, Dr. Gaston was present and scrubbed for the entire procedure. I attest to the content of the Intraoperative Record and any orders documented therein. Any exceptions are noted below.
[2017-06-18] MEDS: DIGOXIN 0.125 MG TAB PO SCH (16:19)
[2017-06-18] MEDS ORDERED: GABAPENTIN 100 MG CAP PO ONE (16:45)
--- NOTE | 2017-06-18 17:47 | DIAGNOSTIC IMAGING REPORT ---
ULTRASOUND VENOUS DOPPLER LWR EXT BILA CLINICAL HISTORY: Leg swelling COMPARISON STUDY: No previous studies for comparison. FINDINGS: Real-time and color flow Doppler imaging were performed. Flow was seen within the femoral, popliteal and calf veins with no intraluminal thrombus demonstrated. The saphenous vein is patent. Visualization of the calf veins was limited due to extensive lower extremity edema. IMPRESSION: No evidence of lower extremity DVT. Electronically signed by: Loki Ferreira M.D. 06/18/2017 5:46 PM Dictated Date/Time: 06/18/2017 5:45 PM
--- NOTE | 2017-06-18 19:00 | Medical Student: [facility] ---
Med Student Progress Note Date of Service Jun 18, 2017. Subjective Pt evaluation today including: conversation w/ patient, physical exam, chart review, lab review, review of studies, conversation w/ customer support consultant Pt is a 62 yo male who was admitted for management of likely MRSA vegetations on his aortic valve. Patient continues to be asymptomatic from the vegatations. He reports that he slept well on Sertraline last night. He is anxious to get the necessary procedures and return home. He notes that his "nerves" are really bothering him, and is tearful about his multiple medical conditions. Review of Systems Constitutional: No fever, No chills, No sweats Eyes: No eye pain ENT: No hearing loss Respiratory: No cough, No sputum, No wheezing, No shortness of breath Cardiac: No chest pain, No palpitations Abdomen: No pain, No nausea, No vomiting, No diarrhea, No constipation Musculoskeletal: No joint pain Male : No dysuria, No urinary frequency Psychiatric: + depression symptoms, + anxiety Skin: No rash, No itch Objective Vital Signs Date Time Temp Pulse Resp B/P (MAP) Pulse Ox O2 Delivery O2 Flow Rate FiO2 06/18/17 16:19 96 06/18/17 16:13 36.4 77 18 108/73 (85) 98 Room Air 06/18/17 16:00 98 Room Air 06/18/17 12:15 Room Air 06/18/17 12:12 36.6 76 20 93/63 (73) 91 Room Air 06/18/17 11:31 36.4 104 22 108/72 93 Room Air 2.0 06/18/17 10:56 36.4 76 108/72 (84) 06/18/17 10:45 76 96/55 06/18/17 10:30 60 101/56 06/18/17 10:15 78 105/65 06/18/17 10:00 78 93/62 06/18/17 09:45 78 112/75 06/18/17 09:30 77 112/74 06/18/17 09:15 77 117/80 06/18/17 09:00 76 113/72 06/18/17 08:45 78 114/71 06/18/17 08:30 78 97/69 06/18/17 08:15 93 145/74 06/18/17 08:00 Room Air 06/18/17 08:00 77 110/74 06/18/17 07:56 77 105/71 06/18/17 07:54 36.9 104 22 104/68 (80) 93 Room Air 06/18/17 07:50 36.5 74 101/64 (76) 06/18/17 04:00 96 Room Air 06/18/17 03:19 37.0 75 19 91/64 (73) 91 Room Air 06/18/17 00:00 96 Room Air 06/18/17 00:00 96 Room Air 06/17/17 23:57 36.3 77 20 109/73 (85) 95 Room Air 06/17/17 20:00 96 Room Air 06/17/17 19:22 36.6 78 18 110/74 (86) 96 Room Air 06/17/17 19:08 92 Physical Exam General Appearance: WD/WN, no apparent distress ENT: hearing grossly normal Neck: supple, no adenopathy, no JVD Respiratory/Chest: lungs clear, normal breath sounds, no respiratory distress Cardiovascular: no edema, no murmur, + pertinent finding (a. flutter. ) Abdomen: non tender, soft, no organomegaly Extremities: + pedal edema, + swelling Neurologic/Psychiatric: alert, normal mood/affect, oriented x 3 Skin: normal color, warm/dry Laboratory Results Last 24 Hours Test 06/17/17 20:30 06/18/17 00:00 06/18/17 06:25 06/18/17 11:35 Bedside Glucose 353 mg/dl 232 mg/dl 154 mg/dl 120 mg/dl Test 06/18/17 12:24 06/18/17 16:27 Bedside Glucose 121 mg/dl 243 mg/dl Assessment and Plan Assessment and Plan: Pt is 62 year old male with hx of ESRD on HD with perm cath and MRSA bacteremia who was admitted for treatment of aortic valve septic vegetations. Plan: Neuro * Anxiety and Difficulty Sleeping * Continue Sertraline 25 mg at bedtime. * Begin PRN Benzodiazepine. * Diabetic Neuropathy * Continue home Gabapentin 100 mg BID Cardiovascular * Chronic Systolic CHF - ? exacerbation, Atrial flutter * Continue home medications: Carvedilol 12.5 BID, Digoxin 125 mg, Warfarin 0.5 mg, ASA 81 mg * Pulmonary congestion present on CXR. Continue to monitor. D/w dialysis. Pulmonology * Pulmonary congestion as above. GI * No Issues at this time. Continue to Monitor. Renal * ESRD on HD - //Sat Schedule * Continue home dose of Lasix 40 mg daily. * BMP daily to monitor electrolytes * Nephrology Consult for dialysis needs. Endocrine * T2DM * SSI, blood glucose checks per nursing protocol. Infectious Disease * MRSA Endocarditis (Aortic Valve vegetations) * Begin Daptomycin 6mg/kg IV on dialysis days (//Sat) * Perm Cath removed and cultured today. * Blood cultures from 06/13 and 06/17 are sterile. * Continue to monitor for s/s of septic emboli * ID consult. Hematology * PT/INR to check for therapeutic Warfarin dose * CBC daily - trend WBC count MSK * Lower Leg Edema - DVT ruled out by doppler. Etiology now most likely dt kidney failure. Continued [facility] stay due to: multiple IV medications needed Discharge planning: home
[2017-06-18] MEDS ORDERED: ALPRAZOLAM 0.25 MG TAB PO PRN (20:30)
[2017-06-18] MEDS: INSULIN GLARGINE SOLOSTAR 100 UNITS/ML 3 ML PEN SC SCH (20:51)
[2017-06-18] MEDS: SERTRALINE HCL 50 MG TAB PO SCH (20:51)
[2017-06-19] VITALS (8 sets, daily range): BP systolic 91–135; BP diastolic 57–80; PULSE 73–123; TEMP 36.3–36.8; O2SAT 94–100; BMI 29.1
--- NOTE | 2017-06-19 05:39 | Progress Note ---
Subjective Date of Service: Jun 18, 2017. Subjective Pt evaluation today including: conversation w/ patient, conversation w/ family (daughter at bedside), physical exam, chart review, lab review, conversation w/ senior environmental consultant (ID, nephrology) Pain: denies except for chronic neuropathy legs PO Intake: normal Voiding: no voiding problems (voids about 2x's a day) tele with rate controlled a flutter during the visit he was very upset he was raising his voice asking why he had to continue being hospitalized, stating "I've got things to do" during his tirade he actually became tearful admitting to feeling anxious and somewhat depressed daughter reported he got this way when he had his CABG at [facility] years ago he stated he would be willing to do his hemodialysis in [place] but ultimately wants to do home peritoneal dialysis Problem List Medical Problems: (1) Atrial fibrillation with rapid ventricular response Status: Acute (2) Atrial fibrillation with RVR Status: Acute (3) Cellulitis Status: Acute (4) Dehydration Status: Acute (5) Sepsis Status: Acute Review of Systems Constitutional: No fever Respiratory: No cough, No shortness of breath Cardiac: + edema, No chest pain Abdomen: No pain Objective Vital Signs Date Time Temp Pulse Resp B/P (MAP) Pulse Ox O2 Delivery O2 Flow Rate FiO2 06/18/17 20:00 Room Air 06/18/17 19:33 36.7 78 20 106/71 (83) 95 Room Air 06/18/17 16:19 96 06/18/17 16:13 36.4 77 18 108/73 (85) 98 Room Air 06/18/17 16:00 98 Room Air 06/18/17 12:15 Room Air 06/18/17 12:12 36.6 76 20 93/63 (73) 91 Room Air 06/18/17 11:31 36.4 104 22 108/72 93 Room Air 2.0 06/18/17 10:56 36.4 76 108/72 (84) 06/18/17 10:45 76 96/55 06/18/17 10:30 60 101/56 06/18/17 10:15 78 105/65 06/18/17 10:00 78 93/62 06/18/17 09:45 78 112/75 06/18/17 09:30 77 112/74 06/18/17 09:15 77 117/80 06/18/17 09:00 76 113/72 06/18/17 08:45 78 114/71 06/18/17 08:30 78 97/69 06/18/17 08:15 93 145/74 06/18/17 08:00 Room Air 06/18/17 08:00 77 110/74 06/18/17 07:56 77 105/71 06/18/17 07:54 36.9 104 22 104/68 (80) 93 Room Air 06/18/17 07:50 36.5 74 101/64 (76) 06/18/17 04:00 96 Room Air 06/18/17 03:19 37.0 75 19 91/64 (73) 91 Room Air 06/18/17 00:00 96 Room Air 06/18/17 00:00 96 Room Air 06/17/17 23:57 36.3 77 20 109/73 (85) 95 Room Air Physical Exam General Appearance: no apparent distress, + pertinent finding (anxious, angry, upset) ENT: pharynx normal Respiratory/Chest: lungs clear, no respiratory distress, no accessory muscle use Cardiovascular: regular rate, rhythm, no gallop, no murmur Abdomen: normal bowel sounds, non tender, soft, no organomegaly Extremities: + pedal edema, + swelling (no change) Neurologic/Psychiatric: alert, oriented x 3 Skin: + pertinent finding (healed ulcer right [place]ak) Laboratory Results Last 24 Hours Test 06/18/17 00:00 06/18/17 06:25 06/18/17 11:35 06/18/17 12:24 Bedside Glucose 232 mg/dl 154 mg/dl 120 mg/dl 121 mg/dl Test 06/18/17 16:27 06/18/17 20:02 Bedside Glucose 243 mg/dl 326 mg/dl Assessment and Plan 62yo male with ESRD on HD, PAD, T2DM, chronic systolic CHF, a. flutter on coumadin, and CAD s/p CABG. Presented as a direct admission to coordinate care surrounding his recently discovered aortic valve endocarditis in the setting of recent MRSA bacteremia. At this point it is assumed that his tunneled dialysis catheter is infected and should be removed. 1. recent MRSA bacteremia, now with evidence of aortic valve endocarditis - * ID consultation to assist with antibiotic management; will continue daptomycin q48h; can receive on HD days as outpatient? * repeat blood cx's x 2 sets thus far negative and had negative blood cultures from 06/13/17 as well * he is s/p removal of HD catheter today by Dr. Gaston; cath tip sent for culture; assistance appreciated * fortunately he is quite stable from ID standpoint * of note - has completed 2 weeks of IV vancomycin prior to this admission 2. ESRD on HD - nephrology consultation to assist with HD needs. To receive new HD catheter - ?? Will d/w Dr. Gaston. 3. a. flutter - rates controlled with BB and digoxin; digoxin level adequate. Hold coumadin in anticipation of placing new HD catheter. 4. T2DM - uncontrolled. adjust lantus and novolog. 5. chronic systolic CHF - most recent EF was 35-40% - cont BB and lasix. Not AKI/ARB candidate due to ESRD. Compensated. 6. PAD - continue aspirin therapy. He apparently, by history, is statin intolerant. 7. diabetic neuropathy - gabapentin 100mg TID. 8. CAD - continue BB, aspirin. NO ischemic symptoms at this time. 9. dyspnea - resolved. 10. DVT proph - hold coumadin due to vascular surgery needed. 11. SW consult - patient reports having financial difficulty paying hospital bills, etc. updated daughter extensively at bedside today leave on tele 1 more day for now Continued [facility] stay due to: multiple IV medications needed Discharge planning: home with home health
[2017-06-19 06:29] LABS: BASO % 0.4 %; BASO ABS # 0.02 K/uL (0-0.2); COMPLETE YES; EOS % 3.9 %; HEMATOCRIT 30.8 % (42-52); IG% 1.2 %; LYMPH % 16.4 %; LYMPH ABS # 0.92 K/uL (1.2-3.4); MEAN CELL VOLUME 91.4 fL (80-100); MEAN CORPUSCULAR HEMOGLOBIN 29.4 pg (25-34); MEAN CORPUSCULAR HGB CONC 32.1 g/dl (32-36); MEAN PLATELET VOLUME 11.6 fL (7.4-10.4); NEUT % 71.1 %; PLATELET COUNT 114 K/uL (130-400); RED BLOOD COUNT 3.37 M/uL (4.7-6.1); WHITE BLOOD COUNT 5.61 K/uL (4.8-10.8)
[2017-06-19 07:02] LABS: BUN/CREATININE RATIO 5.2 (10-20); CALCIUM 8.8 mg/dl (8.5-10.1); CREATININE 3.7 mg/dl (0.60-1.40); POTASSIUM 3.7 mmol/L (3.5-5.1)
[2017-06-19] MEDS: INSULIN ASPART 100 UNITS/ML 3 ML PEN SC SCH ×4 (08:11→20:17)
[2017-06-19] MEDS: MIDODRINE 2.5 MG TAB PO SCH ×3 (08:26→16:40)
[2017-06-19] MEDS: CARVEDILOL 12.5 MG TAB PO SCH ×2 (08:28→19:52)
[2017-06-19] MEDS: DOCUSATE SODIUM 100 MG CAP PO SCH (08:28)
[2017-06-19] MEDS: ASPIRIN 81 MG ECTAB PO SCH (08:29)
[2017-06-19] MEDS: FUROSEMIDE 40 MG TAB PO SCH ×2 (08:30→19:51)
[2017-06-19] MEDS: NEPHROCAPS PO SCH ×2 (08:30→19:52)
[2017-06-19] MEDS: OMEGA-3 (PURIFIED FISH OIL) 1 GM CAP PO SCH (08:31)
[2017-06-19] MEDS: GABAPENTIN 100 MG CAP PO SCH ×4 (08:31→19:51)
[2017-06-19] MEDS ORDERED: INSULIN GLARGINE SOLOSTAR 100 UNITS/ML 3 ML PEN SC SCH ×2 (09:30→21:00)
--- NOTE | 2017-06-19 10:03 | Nephrology Progress Note ---
Nephrology Progress Note Date of Service Jun 19, 2017. Chief Complaint ESRD Subjective No acute events overnight. Rubio is resting comfortably in bed this morning. He denies shortness of breath. He denies pain. No fevers or chills. Tolerated HD yesterday without complications. Review of Systems A complete review of systems was performed. Pertinent positives are noted above. All other systems are negative. Vital Signs Last 8 Hrs Date Time Temp Pulse Resp B/P (MAP) Pulse Ox O2 Delivery O2 Flow Rate FiO2 06/19/17 08:36 Room Air 06/19/17 08:20 36.8 78 18 135/80 (98) 97 Room Air 06/19/17 07:15 Room Air 06/19/17 04:00 Room Air 06/19/17 03:41 36.6 75 17 93/69 (77) 98 Room Air Last Recorded Weight Weight (Kilograms): 94.600 Physical Exam General Appearance: WD/WN, no apparent distress Head: normocephalic, atraumatic Eyes: normal inspection, sclerae normal ENT: normal ENT inspection, pharynx normal Neck: supple, no JVD Respiratory/Chest: lungs clear, no respiratory distress, no accessory muscle use Cardiovascular: regular rate, rhythm, no gallop Abdomen/GI: non tender, soft Extremities/Musculoskelatal: normal inspection, + pedal edema Neurologic/Psych: alert, normal mood/affect Family History No pertinent family history Social History Smokeless Tobacco Use: No Alcohol Use: none Drug Use: none Marital Status: (lives with & son) Housing Status: lives with family 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) Laboratory Results Past 24 Hours 06/19/17 05:53 Red Blood Count 3.37, Mean Corpuscular Volume 91.4, Mean Corpuscular Hemoglobin 29.4, Mean Corpuscular Hemoglobin Concent 32.1, Mean Platelet Volume 11.6, Neutrophils (%) (Auto) 71.1, Lymphocytes (%) (Auto) 16.4, Monocytes (%) (Auto) 7.0, Eosinophils (%) (Auto) 3.9, Basophils (%) (Auto) 0.4, Neutrophils # (Auto) 3.99, Lymphocytes # (Auto) 0.92, Monocytes # (Auto) 0.39, Eosinophils # (Auto) 0.22, Basophils # (Auto) 0.02 06/19/17 05:53 Test 06/18/17 11:35 06/18/17 12:24 06/18/17 16:27 06/18/17 20:02 Bedside Glucose 120 mg/dl (70-99) 121 mg/dl (70-99) 243 mg/dl (70-99) 326 mg/dl (70-99) Test 06/19/17 05:53 06/19/17 06:50 White Blood Count 5.61 K/uL (4.8-10.8) Red Blood Count 3.37 M/uL (4.7-6.1) Hemoglobin 9.9 g/dL (14.0-18.0) Hematocrit 30.8 % (42-52) Mean Corpuscular Volume 91.4 fL (80-100) Mean Corpuscular Hemoglobin 29.4 pg (25-34) Mean Corpuscular Hemoglobin Concent 32.1 g/dl (32-36) Platelet Count 114 K/uL (130-400) Mean Platelet Volume 11.6 fL (7.4-10.4) Neutrophils (%) (Auto) 71.1 % Lymphocytes (%) (Auto) 16.4 % Monocytes (%) (Auto) 7.0 % Eosinophils (%) (Auto) 3.9 % Basophils (%) (Auto) 0.4 % Neutrophils # (Auto) 3.99 K/uL (1.4-6.5) Lymphocytes # (Auto) 0.92 K/uL (1.2-3.4) Monocytes # (Auto) 0.39 K/uL (0.11-0.59) Eosinophils # (Auto) 0.22 K/uL (0-0.5) Basophils # (Auto) 0.02 K/uL (0-0.2) RDW Standard Deviation 57.2 fL (36.4-46.3) RDW Coefficient of Variation 17.1 % (11.5-14.5) Immature Granulocyte % (Auto) 1.2 % Immature Granulocyte # (Auto) 0.07 K/uL (0.00-0.02) Anion Gap 9.0 mmol/L (3-11) Est Creatinine Clear Calc Drug Dose 24.6 ml/min Estimated GFR () 19.3 Estimated GFR (Non- 16.6 BUN/Creatinine Ratio 5.2 (10-20) Calcium Level 8.8 mg/dl (8.5-10.1) Phosphorus Level 3.0 mg/dl (2.5-4.9) Albumin 2.8 gm/dl (3.4-5.0) Bedside Glucose 243 mg/dl (70-99) Allergies Coded Allergies: No Known Allergies (Unverified , 05/21/17) Medications Current Inpatient Medications Medications (Trade) Dose Ordered Sig/Mikie Route Start Time Stop Time Status Last Admin Dose Admin Ondansetron HCl (Zofran Inj) 4 mg Q6H PRN IV 06/17/17 15:00 07/17/17 14:59 Miscellaneous (Iv Fluids Completed) 1 ea PRN PRN N/A 06/17/17 15:15 06/17/18 15:14 Aspirin (Ecotrin Tab) 81 mg QAM PO 06/18/17 09:00 07/18/17 08:59 06/19/17 08:29 81 MG Vitamin B Complex/ Vit C/Folic Acid (Nephrocaps) 1 cap BID PO 06/17/17 21:00 07/17/17 20:59 06/19/17 08:30 1 CAP Carvedilol (Coreg Tab) 12.5 mg BID PO 06/17/17 21:00 07/17/17 20:59 06/19/17 08:28 12.5 MG Digoxin (Lanoxin Tab) 0.125 mg DAILY@1600 PO 06/17/17 17:30 07/17/17 17:29 06/18/17 16:19 0.125 MG Docusate Sodium (coLACE CAP) 100 mg DAILY PO 06/18/17 09:00 07/18/17 08:59 06/19/17 08:28 100 MG Fish Oil ([place]-3 (Purified Fish Oil) Cap) 1 gm DAILY PO 06/18/17 09:00 07/18/17 08:59 06/19/17 08:31 1 GM Furosemide (Lasix Tab) 40 mg BID PO 06/17/17 21:00 07/17/17 20:59 06/19/17 08:30 40 MG Insulin Glargine (Lantus Solostar Pen) 20 units QPM SC 06/17/17 21:00 07/17/17 20:59 06/18/17 20:51 20 UNITS Lactulose (Chronulac Syrup) 10 gm BID PRN PO 06/17/17 16:30 07/17/17 16:29 Nitroglycerin (Nitrostat Tab) 0.4 mg PRN UT 06/17/17 16:30 07/17/17 16:29 Midodrine (Proamatine Tab) 5 mg TID@08,12,17 PO 06/17/17 17:00 07/17/17 16:59 06/19/17 08:26 5 MG Sertraline HCl (Zoloft Tab) 25 mg HS PO 06/17/17 21:00 07/17/17 20:59 06/18/17 20:51 25 MG Glucose (Glucose 40% Gel) 15-30 GRAMS 15 GRAMS... UD PRN PO 06/17/17 17:00 07/17/17 16:59 Glucose (Glucose Chew Tab) 4-8 Tablets 4 Tabl... UD PRN PO 06/17/17 17:00 07/17/17 16:59 Dextrose (Dextrose 50% 50ML Syringe) 25-50ML OF 50% DW IV FOR... UD PRN IV 06/17/17 17:00 07/17/17 16:59 Glucagon (Glucagon Inj) 1 mg UD PRN SQ 06/17/17 17:00 07/17/17 16:59 Insulin Aspart (novoLOG ASPART) SLIDING SCALE G... ACHS SC 06/17/17 17:45 07/17/17 17:44 06/19/17 08:11 6 UNITS Daptomycin 600 mg/ Sodium Chloride 62 ml @ 100 mls/hr Q48H IV 06/19/17 18:00 07/31/17 17:59 Daptomycin (Consult) 1 ea UD PRN N/A 06/17/17 19:15 07/17/17 19:14 Gabapentin (Neurontin Cap) 100 mg TID PO 06/18/17 21:00 07/17/17 20:59 06/19/17 08:31 100 MG Alprazolam (Xanax Tab) 0.25 mg Q8H PRN PO 06/18/17 20:30 07/18/17 20:29 Insulin Glargine (Lantus Solostar Pen) 15 units QAM SC 06/19/17 09:30 07/19/17 09:29 06/19/17 09:55 15 UNITS Impression (1) ESRD (end stage renal disease) on dialysis (2) Endocarditis (3) Atrial flutter (4) Anemia Rubio is a 62-year-old gentlemen with ESRD on hemodialysis Saturday, , Saturday via right IJ tunnel dialysis catheter. Has hypertension, diabetes mellitus, coronary artery disease, CHF (LVEF 35%) with right-sided heart failure as well as atrial fibrillation/flutter. He was recently admitted to [facility] with sepsis due to MRSA bacteremia and lower extremity cellulitis. Cultures cleared quickly. He was treated with 14 days of vancomycin and antibiotic lock therapy. Unfortunately, he now has evidence of IE. Repeat cultures pending. Afebrile and no stigmata on exam otherwise. Recommendations -- Blood pressure, volume status and electrolytes appropriate -- Permcath removed -- Cultures NGTD -- Daptomycin will be available in the outpatient HD unit starting Friday 06/22 -- Weekly labs including CPK to be monitored -- Plan of care was discussed with Dr. Sin this morning -- Renal diet with 1 L daily fluid restriction
[2017-06-19] MEDS ORDERED: ACETAMINOPHEN 500 MG TAB PO ONE (10:37)
[2017-06-19] MEDS ORDERED: ACETAMINOPHEN 500 MG TAB PO PRN (10:45)
[2017-06-19] MEDS ORDERED: NURSING VERBAL MED ORDER ONE (12:15)
--- NOTE | 2017-06-19 13:22 | Progress Note ---
Progress Note Date of Service Jun 19, 2017. Progress Note Will replace pt's permcath pending blood cx results. If negative tomorrow, can place in afternoon. If positive, can place temporary catheter in afternoon or sat.
--- NOTE | 2017-06-19 15:20 | Infectious Disease Progress Nt ---
Progress Note Date of Service Jun 19, 2017. Subjective Pt evaluation today including: conversation w/ patient, physical exam, chart review, lab review, review of studies, conversation w/ loss prevention consultant, review of inpatient medication list Offers no new complaints today. Catheter out. Blood cultures remain negative. Remains afebrile. Tolerating daptomycin so far. All Other Systems: Reviewed and Negative Medications Current Inpatient Medications Medications (Trade) Dose Ordered Sig/Mikie Route Start Time Stop Time Status Last Admin Dose Admin Ondansetron HCl (Zofran Inj) 4 mg Q6H PRN IV 06/17/17 15:00 07/17/17 14:59 Miscellaneous (Iv Fluids Completed) 1 ea PRN PRN N/A 06/17/17 15:15 06/17/18 15:14 Aspirin (Ecotrin Tab) 81 mg QAM PO 06/18/17 09:00 07/18/17 08:59 06/19/17 08:29 81 MG Vitamin B Complex/ Vit C/Folic Acid (Nephrocaps) 1 cap BID PO 06/17/17 21:00 07/17/17 20:59 06/19/17 08:30 1 CAP Carvedilol (Coreg Tab) 12.5 mg BID PO 06/17/17 21:00 07/17/17 20:59 06/19/17 08:28 12.5 MG Digoxin (Lanoxin Tab) 0.125 mg DAILY@1600 PO 06/17/17 17:30 07/17/17 17:29 06/18/17 16:19 0.125 MG Docusate Sodium (coLACE CAP) 100 mg DAILY PO 06/18/17 09:00 07/18/17 08:59 06/19/17 08:28 100 MG Fish Oil ([place]-3 (Purified Fish Oil) Cap) 1 gm DAILY PO 06/18/17 09:00 07/18/17 08:59 06/19/17 08:31 1 GM Furosemide (Lasix Tab) 40 mg BID PO 06/17/17 21:00 07/17/17 20:59 06/19/17 08:30 40 MG Insulin Glargine (Lantus Solostar Pen) 20 units QPM SC 06/17/17 21:00 07/17/17 20:59 06/18/17 20:51 20 UNITS Lactulose (Chronulac Syrup) 10 gm BID PRN PO 06/17/17 16:30 07/17/17 16:29 Nitroglycerin (Nitrostat Tab) 0.4 mg PRN UT 06/17/17 16:30 07/17/17 16:29 Midodrine (Proamatine Tab) 5 mg TID@08,12,17 PO 06/17/17 17:00 07/17/17 16:59 06/19/17 12:04 5 MG Sertraline HCl (Zoloft Tab) 25 mg HS PO 06/17/17 21:00 07/17/17 20:59 06/18/17 20:51 25 MG Glucose (Glucose 40% Gel) 15-30 GRAMS 15 GRAMS... UD PRN PO 06/17/17 17:00 07/17/17 16:59 Glucose (Glucose Chew Tab) 4-8 Tablets 4 Tabl... UD PRN PO 06/17/17 17:00 07/17/17 16:59 Dextrose (Dextrose 50% 50ML Syringe) 25-50ML OF 50% DW IV FOR... UD PRN IV 06/17/17 17:00 07/17/17 16:59 Glucagon (Glucagon Inj) 1 mg UD PRN SQ 06/17/17 17:00 07/17/17 16:59 Insulin Aspart (novoLOG ASPART) SLIDING SCALE G... ACHS SC 06/17/17 17:45 07/17/17 17:44 06/19/17 12:08 10 UNITS Daptomycin (Consult) 1 ea UD PRN N/A 06/17/17 19:15 07/17/17 19:14 Alprazolam (Xanax Tab) 0.25 mg Q8H PRN PO 06/18/17 20:30 07/18/17 20:29 Insulin Glargine (Lantus Solostar Pen) 15 units QAM SC 06/19/17 09:30 07/19/17 09:29 06/19/17 09:55 15 UNITS Acetaminophen (Tylenol Tab) 1,000 mg Q8 PRN PO 06/19/17 10:45 07/19/17 10:44 Gabapentin (Neurontin Cap) 100 mg TID@0800,1200,1900 PO 06/19/17 12:00 07/19/17 11:59 Daptomycin 950 mg/ Sodium Chloride 69 ml @ 100 mls/hr Q48H IV 06/19/17 18:00 07/31/17 17:59 Objective Vital Signs Date Time Temp Pulse Resp B/P (MAP) Pulse Ox O2 Delivery O2 Flow Rate FiO2 06/19/17 12:00 Room Air 06/19/17 11:13 36.7 85 18 130/70 (90) 95 Room Air 06/19/17 08:36 Room Air 06/19/17 08:20 36.8 78 18 135/80 (98) 97 Room Air 06/19/17 07:15 Room Air 06/19/17 04:00 Room Air 06/19/17 03:41 36.6 75 17 93/69 (77) 98 Room Air 06/19/17 00:05 36.7 73 17 114/74 (87) 96 Room Air 06/19/17 00:00 Room Air 06/18/17 20:00 Room Air 06/18/17 19:33 36.7 78 20 106/71 (83) 95 Room Air 06/18/17 16:19 96 06/18/17 16:13 36.4 77 18 108/73 (85) 98 Room Air 06/18/17 16:00 98 Room Air Physical Exam General Appearance: WD/WN, no apparent distress Eyes: normal inspection, sclerae normal ENT: normal ENT inspection, pharynx normal Neck: supple, no adenopathy, trachea midline Respiratory/Chest: lungs clear, normal breath sounds, no respiratory distress Cardiovascular: regular rate, rhythm, no gallop, + systolic murmur Abdomen: normal bowel sounds, non tender, soft, no organomegaly Extremities: non-tender, no calf tenderness Neurologic/Psychiatric: alert, oriented x 3 Skin: normal color, warm/dry, no rash Lymphatic: no adenopathy Laboratory Results RUN DATE: 06/19/17 [facility] PAGE 1 RUN TIME: [id number] Specimen Inquiry PATIENT: RUBINA SALAZAR LOC: [facility] U # : [id number] AGE/SX: 62/M ROOM: 15 REG : 06/18/[address]: Leroy Bustillo MD : [id number] BED: 1 DIS : STATUS: ADM IN TLOC: SPEC #: [id number] BRANDIN: 06/18/17 STATUS: RES REQ #: [id number] RECD: 06/18/[address]: Leroy Bustillo MD SOURCE: CATH TIP ENTR: 06/18/17 [facility] DR: Arnie Ferrari MD SPDC: PERM. Tomás Martinez M.D., Rick D M.D. Roe, Kevin, D.O. Simoni, Ar Green M.D. ORDERED: CT Procedure Result Verified Site CATHETER TIP CULTURE Preliminary 06/19/17-1306 NO GROWTH TO DATE. Last 24 Hours Test 06/18/17 16:27 06/18/17 20:02 06/19/17 05:53 06/19/17 06:50 Bedside Glucose 243 mg/dl 326 mg/dl 243 mg/dl White Blood Count 5.61 K/uL Red Blood Count 3.37 M/uL Hemoglobin 9.9 g/dL Hematocrit 30.8 % Mean Corpuscular Volume 91.4 fL Mean Corpuscular Hemoglobin 29.4 pg Mean Corpuscular Hemoglobin Concent 32.1 g/dl Platelet Count 114 K/uL Mean Platelet Volume 11.6 fL Neutrophils (%) (Auto) 71.1 % Lymphocytes (%) (Auto) 16.4 % Monocytes (%) (Auto) 7.0 % Eosinophils (%) (Auto) 3.9 % Basophils (%) (Auto) 0.4 % Neutrophils # (Auto) 3.99 K/uL Lymphocytes # (Auto) 0.92 K/uL Monocytes # (Auto) 0.39 K/uL Eosinophils # (Auto) 0.22 K/uL Basophils # (Auto) 0.02 K/uL RDW Standard Deviation 57.2 fL RDW Coefficient of Variation 17.1 % Immature Granulocyte % (Auto) 1.2 % Immature Granulocyte # (Auto) 0.07 K/uL Sodium Level 137 mmol/L Potassium Level 3.7 mmol/L Chloride Level 101 mmol/L Carbon Dioxide Level 27 mmol/L Anion Gap 9.0 mmol/L Blood Urea Nitrogen 19 mg/dl Creatinine 3.70 mg/dl Est Creatinine Clear Calc Drug Dose 24.6 ml/min Estimated GFR () 19.3 Estimated GFR (Non- 16.6 BUN/Creatinine Ratio 5.2 Random Glucose 260 mg/dl Calcium Level 8.8 mg/dl Phosphorus Level 3.0 mg/dl Albumin 2.8 gm/dl Test 06/19/17 11:22 Bedside Glucose 243 mg/dl Assessment and Plan 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 Patient should continue on daptomycin adjusted for his renal insufficiency, and will require 6 weeks of therapy. To watch carefully for embolic phenomenon. Dialysis catheter removed. Will follow.
--- NOTE | 2017-06-19 15:50 | Medical Student: [facility] ---
Med Student Progress Note Date of Service Jun 19, 2017. Subjective Pt evaluation today including: conversation w/ patient, physical exam, chart review, lab review, conversation w/ medical device sales consultant Mr. Santoyo is a 62 yo M admitted for the management of recently discovered bacterial endocarditis. He notes that he slept well last night and has no complaints. He feels well today, but notes he would like to get out of here as soon as possible. He notes that his nerves are doing better today and that he is now considering having a fistula creation with Dr. Gaston. Review of Systems Constitutional: No fever, No chills, No sweats, No weakness Respiratory: No cough, No sputum, No wheezing, No shortness of breath Cardiac: No chest pain, No palpitations Abdomen: No pain, No nausea, No vomiting, No diarrhea, No constipation Male : No dysuria, No urinary frequency Neurologic: + numbness/tingling (diabetic neuropathy in both feet. ), No weakness Skin: No rash, No itch Objective Vital Signs Date Time Temp Pulse Resp B/P (MAP) Pulse Ox O2 Delivery O2 Flow Rate FiO2 06/19/17 12:00 Room Air 06/19/17 11:13 36.7 85 18 130/70 (90) 95 Room Air 06/19/17 08:36 Room Air 06/19/17 08:20 36.8 78 18 135/80 (98) 97 Room Air 06/19/17 07:15 Room Air 06/19/17 04:00 Room Air 06/19/17 03:41 36.6 75 17 93/69 (77) 98 Room Air 06/19/17 00:05 36.7 73 17 114/74 (87) 96 Room Air 06/19/17 00:00 Room Air 06/18/17 20:00 Room Air 06/18/17 19:33 36.7 78 20 106/71 (83) 95 Room Air 06/18/17 16:19 96 06/18/17 16:13 36.4 77 18 108/73 (85) 98 Room Air 06/18/17 16:00 98 Room Air Physical Exam General Appearance: WD/WN, no apparent distress ENT: hearing grossly normal, pharynx normal Neck: supple, no adenopathy, no JVD Respiratory/Chest: lungs clear, normal breath sounds, no respiratory distress Cardiovascular: no murmur, + pertinent finding (a. flutter on tele. ) Abdomen: non tender, soft, no organomegaly Extremities: + swelling (tense swelling bilateral LE. Improved today. ), + pertinent finding (healing scabs over both shins bilaterally. ) Neurologic/Psychiatric: alert, normal mood/affect, oriented x 3 Skin: normal color Laboratory Results Last 24 Hours Test 06/18/17 16:27 06/18/17 20:02 06/19/17 05:53 06/19/17 06:50 Bedside Glucose 243 mg/dl 326 mg/dl 243 mg/dl White Blood Count 5.61 K/uL Red Blood Count 3.37 M/uL Hemoglobin 9.9 g/dL Hematocrit 30.8 % Mean Corpuscular Volume 91.4 fL Mean Corpuscular Hemoglobin 29.4 pg Mean Corpuscular Hemoglobin Concent 32.1 g/dl Platelet Count 114 K/uL Mean Platelet Volume 11.6 fL Neutrophils (%) (Auto) 71.1 % Lymphocytes (%) (Auto) 16.4 % Monocytes (%) (Auto) 7.0 % Eosinophils (%) (Auto) 3.9 % Basophils (%) (Auto) 0.4 % Neutrophils # (Auto) 3.99 K/uL Lymphocytes # (Auto) 0.92 K/uL Monocytes # (Auto) 0.39 K/uL Eosinophils # (Auto) 0.22 K/uL Basophils # (Auto) 0.02 K/uL RDW Standard Deviation 57.2 fL RDW Coefficient of Variation 17.1 % Immature Granulocyte % (Auto) 1.2 % Immature Granulocyte # (Auto) 0.07 K/uL Sodium Level 137 mmol/L Potassium Level 3.7 mmol/L Chloride Level 101 mmol/L Carbon Dioxide Level 27 mmol/L Anion Gap 9.0 mmol/L Blood Urea Nitrogen 19 mg/dl Creatinine 3.70 mg/dl Est Creatinine Clear Calc Drug Dose 24.6 ml/min Estimated GFR () 19.3 Estimated GFR (Non- 16.6 BUN/Creatinine Ratio 5.2 Random Glucose 260 mg/dl Calcium Level 8.8 mg/dl Phosphorus Level 3.0 mg/dl Albumin 2.8 gm/dl Test 06/19/17 11:22 Bedside Glucose 243 mg/dl Assessment and Plan Assessment and Plan: Pt is 62 year old male with hx of ESRD on HD with perm cath and MRSA bacteremia who was admitted for treatment of aortic valve septic vegetations. Plan: Neuro * Anxiety and Difficulty Sleeping * Continue Sertraline 25 mg at bedtime. * Begin PRN Benzodiazepine. * Lab Rep consult * Diabetic Neuropathy * Continue home Gabapentin 100 mg BID Cardiovascular * Chronic Systolic CHF - ? exacerbation, Atrial flutter, CVD s/p CABG * Continue home medications: Carvedilol 12.5 BID, Digoxin 125 mg, ASA 81 mg * Home Coumadin was stopped dt upcoming procedures. * Pulmonary congestion present on CXR. Continue to monitor. D/w dialysis team. Pulmonology * Pulmonary congestion as above. GI * No Issues at this time. Continue to Monitor. Renal * ESRD on HD - //Sat Schedule * Continue home dose of Lasix 40 mg daily. * BMP daily to monitor electrolytes * Nephrology Consult for dialysis needs. Will resume dialysis after permcath insertion tomorrow. Endocrine * T2DM * SSI, blood glucose checks per nursing protocol. Infectious Disease * MRSA Endocarditis (Aortic Valve vegetations) * Begin Daptomycin 6mg/kg IV on dialysis days (//Sat) - will be able to continue this outpt. * Perm Cath removed and cultured today. * Blood cultures from 06/13 and 06/17 are sterile. * Continue to monitor for s/s of septic emboli * ID consult. Hematology * PT/INR to check for therapeutic Warfarin dose * CBC daily - trend WBC count MSK * Lower Leg Edema - DVT ruled out by doppler. Etiology now most likely dt kidney failure. Dispo: Remain on TELE Full Resuscitation DVT prophylaxis not indicated currently. Continued [facility] stay due to: multiple IV medications needed Discharge planning: home with home health
[2017-06-19] MEDS: DIGOXIN 0.125 MG TAB PO SCH (16:40)
[2017-06-19] MEDS ORDERED: SODIUM CHLORIDE 0.9% IV SCH (18:00)
[2017-06-19] MEDS ORDERED: DAPTOMYCIN IV SCH (18:00)
[2017-06-19] MEDS ORDERED: DAPTOmycin IV 600 MG in SODIUM CHLORIDE 0.9% 50ML 50 ML IV SCH (18:00)
[2017-06-19] MEDS: SERTRALINE HCL 50 MG TAB PO SCH (19:52)
[2017-06-19] MEDS ORDERED: INSULIN HUMAN REGULAR PER IV STA (20:01)
[2017-06-19] MEDS ORDERED: INSULIN HUMAN REGULAR PER UNIT 9 UNITS in SYRINGE 8.91 ML IV SCH (20:15)
[2017-06-20] VITALS (7 sets, daily range): BP systolic 101–110; BP diastolic 64–70; PULSE 66–76; TEMP 36.5–36.6; O2SAT 95–97; Ht 180.3 cm; Wt 95.7 kg
[2017-06-20] MEDS: INSULIN ASPART 100 UNITS/ML 3 ML PEN SC SCH ×5 (00:22→17:42)
--- NOTE | 2017-06-20 01:23 | Progress Note ---
Subjective Date of Service: late entry for visit on Jun 19, 2017. Subjective Pt evaluation today including: conversation w/ patient, physical exam, chart review, lab review, conversation w/ search engine optimization consultant (nephrology, vascular surgery), review of inpatient medication list Pain: none reported PO Intake: normal tele - rate controlled a flutter not as anxious today more calm denies any complaints Problem List Medical Problems: (1) Atrial fibrillation with rapid ventricular response Status: Acute (2) Atrial fibrillation with RVR Status: Acute (3) Cellulitis Status: Acute (4) Dehydration Status: Acute (5) Sepsis Status: Acute Review of Systems Constitutional: No fever, No chills Respiratory: No shortness of breath Cardiac: No chest pain, No orthopnea Abdomen: No pain Objective Vital Signs Date Time Temp Pulse Resp B/P (MAP) Pulse Ox O2 Delivery O2 Flow Rate FiO2 06/20/17 00:01 96 Room Air 06/19/17 23:39 36.4 74 19 93/69 (77) 96 Room Air 06/19/17 20:00 Room Air 06/19/17 19:57 36.6 78 18 100/66 (77) 96 Room Air 06/19/17 16:40 78 06/19/17 16:00 36.3 92 18 97/68 (78) 94 Room Air 06/19/17 16:00 Room Air 06/19/17 12:00 Room Air 06/19/17 11:13 36.7 85 18 130/70 (90) 95 Room Air 06/19/17 08:36 Room Air 06/19/17 08:20 36.8 78 18 135/80 (98) 97 Room Air 06/19/17 07:15 Room Air 06/19/17 04:00 Room Air 06/19/17 03:41 36.6 75 17 93/69 (77) 98 Room Air Physical Exam General Appearance: no apparent distress ENT: pharynx normal Neck: no JVD Respiratory/Chest: lungs clear, no respiratory distress, no accessory muscle use Cardiovascular: regular rate, rhythm, no gallop, no murmur Abdomen: normal bowel sounds, non tender, soft, no organomegaly Extremities: + pedal edema (but improved today), + swelling (1=2+ b/l -- modestly improved) Neurologic/Psychiatric: alert, oriented x 3 Skin: + pertinent finding Laboratory Results Last 24 Hours Test 06/19/17 05:53 06/19/17 06:50 06/19/17 11:22 06/19/17 16:25 White Blood Count 5.61 K/uL Red Blood Count 3.37 M/uL Hemoglobin 9.9 g/dL Hematocrit 30.8 % Mean Corpuscular Volume 91.4 fL Mean Corpuscular Hemoglobin 29.4 pg Mean Corpuscular Hemoglobin Concent 32.1 g/dl Platelet Count 114 K/uL Mean Platelet Volume 11.6 fL Neutrophils (%) (Auto) 71.1 % Lymphocytes (%) (Auto) 16.4 % Monocytes (%) (Auto) 7.0 % Eosinophils (%) (Auto) 3.9 % Basophils (%) (Auto) 0.4 % Neutrophils # (Auto) 3.99 K/uL Lymphocytes # (Auto) 0.92 K/uL Monocytes # (Auto) 0.39 K/uL Eosinophils # (Auto) 0.22 K/uL Basophils # (Auto) 0.02 K/uL RDW Standard Deviation 57.2 fL RDW Coefficient of Variation 17.1 % Immature Granulocyte % (Auto) 1.2 % Immature Granulocyte # (Auto) 0.07 K/uL Sodium Level 137 mmol/L Potassium Level 3.7 mmol/L Chloride Level 101 mmol/L Carbon Dioxide Level 27 mmol/L Anion Gap 9.0 mmol/L Blood Urea Nitrogen 19 mg/dl Creatinine 3.70 mg/dl Est Creatinine Clear Calc Drug Dose 24.6 ml/min Estimated GFR () 19.3 Estimated GFR (Non- 16.6 BUN/Creatinine Ratio 5.2 Random Glucose 260 mg/dl Calcium Level 8.8 mg/dl Phosphorus Level 3.0 mg/dl Albumin 2.8 gm/dl Bedside Glucose 243 mg/dl 243 mg/dl 374 mg/dl Test 06/19/17 19:49 06/19/17 21:16 06/19/17 23:41 Bedside Glucose 401 mg/dl 335 mg/dl 199 mg/dl Assessment and Plan 62yo male with ESRD on HD, PAD, T2DM, chronic systolic CHF, a. flutter on coumadin, and CAD s/p CABG. Presented as a direct admission to coordinate care surrounding his recently discovered aortic valve endocarditis in the setting of recent MRSA bacteremia. At this point it is assumed that his tunneled dialysis catheter is infected and should be removed. 1. recent MRSA bacteremia, now with evidence of aortic valve endocarditis - * ID consultation to assist with antibiotic management; will continue daptomycin q48h; will be able to receive the daptomycin on HD days as outpatient according to nephrology * repeat blood cx's x 2 sets thus far negative and had negative blood cultures from 06/13/17 as well * he is s/p removal of HD catheter by Dr. Gaston; cath tip sent for culture and thus far negative * fortunately he is quite stable from ID standpoint * of note - has completed 2 weeks of IV vancomycin prior to this admission * plan total of 6 weeks of IV abx therapy 2. ESRD on HD - nephrology consultation to assist with HD needs. To receive new HD catheter on by Dr. Gaston 3. a. flutter - rates controlled with BB and digoxin; digoxin level adequate. Holding coumadin in anticipation of placing new HD catheter. Resume coumadin post-op. 4. T2DM - uncontrolled. adjust lantus and novolog once again today at time of discharge would send him home on the amounts he is requiring here 5. chronic systolic CHF - most recent EF was 35-40% - cont BB and lasix. Not AKI/ARB candidate due to ESRD. Compensated. 6. PAD - continue aspirin therapy. He apparently, by history, is statin intolerant. 7. diabetic neuropathy - gabapentin 100mg TID. 8. CAD - continue BB, aspirin. NO ischemic symptoms at this time. 9. dyspnea - resolved. 10. DVT proph - hold coumadin due to vascular surgery needed. 11. SW consult - patient reports having financial difficulty paying hospital bills, etc. 12. depression/anxiety - point of care technician consult; started sertraline 25mg hs this admission d/c home with 50mg at HS updated daughter extensively at bedside 06/18 new HD catheter tomorrow followed by hemodialysis technically he may be able to d/c following dialysis tomorrow if arrangements for aftercare and his IV daptomycin on HD days have been arranged worst case scenario d/c home on Saturday AM Continued [facility] stay due to: multiple IV medications needed Discharge planning: home with home health
[2017-06-20 06:47] LABS: INR 1.3 (0.9-1.1); PROTHROMBIN TIME (PATIENT) 13.5 SECONDS (9.0-12.0)
[2017-06-20 07:07] LABS: CALCIUM 8.4 mg/dl (8.5-10.1); CREATININE 4.2 mg/dl (0.60-1.40); POTASSIUM 3.7 mmol/L (3.5-5.1)
[2017-06-20 07:12] LABS: PHOSPHORUS 3.6 mg/dl (2.5-4.9)
[2017-06-20] MEDS: MIDODRINE 2.5 MG TAB PO SCH ×3 (07:29→17:55)
[2017-06-20] MEDS: DOCUSATE SODIUM 100 MG CAP PO SCH (07:29)
[2017-06-20] MEDS: GABAPENTIN 100 MG CAP PO SCH ×3 (07:29→17:54)
[2017-06-20] MEDS: CARVEDILOL 12.5 MG TAB PO SCH (07:30)
[2017-06-20] MEDS: FUROSEMIDE 40 MG TAB PO SCH (07:31)
[2017-06-20] MEDS: NEPHROCAPS PO SCH (07:32)
[2017-06-20] MEDS: ASPIRIN 81 MG ECTAB PO SCH (07:32)
[2017-06-20] MEDS: OMEGA-3 (PURIFIED FISH OIL) 1 GM CAP PO SCH (07:33)
[2017-06-20] MEDS ORDERED: NURSING VERBAL MED ORDER ONE (07:45)
--- NOTE | 2017-06-20 08:29 | Progress Note ---
Subjective Date of Service: Jun 20, 2017. Problem List Medical Problems: (1) Atrial fibrillation with rapid ventricular response Status: Acute (2) Atrial fibrillation with RVR Status: Acute (3) Cellulitis Status: Acute (4) Dehydration Status: Acute (5) Sepsis Status: Acute Objective Vital Signs Date Time Temp Pulse Resp B/P (MAP) Pulse Ox O2 Delivery O2 Flow Rate FiO2 06/20/17 07:15 Room Air 06/20/17 06:54 36.6 76 19 105/70 (82) 97 Room Air 06/20/17 04:09 36.5 74 20 101/65 95 Room Air 06/20/17 04:00 36.5 74 20 101/65 (77) 95 Room Air 06/20/17 04:00 95 Room Air 06/20/17 00:01 96 Room Air 06/19/17 23:39 36.4 74 19 93/69 (77) 96 Room Air 06/19/17 20:00 Room Air 06/19/17 19:57 36.6 78 18 100/66 (77) 96 Room Air 06/19/17 16:40 78 06/19/17 16:00 36.3 92 18 97/68 (78) 94 Room Air 06/19/17 16:00 Room Air 06/19/17 12:00 Room Air 06/19/17 11:13 36.7 85 18 130/70 (90) 95 Room Air 06/19/17 08:36 Room Air Laboratory Results Last 24 Hours Test 06/19/17 11:22 06/19/17 16:25 06/19/17 19:49 06/19/17 21:16 Bedside Glucose 243 mg/dl 374 mg/dl 401 mg/dl 335 mg/dl Test 06/19/17 23:41 06/20/17 04:05 06/20/17 06:17 06/20/17 06:25 Bedside Glucose 199 mg/dl 139 mg/dl 133 mg/dl Prothrombin Time 13.5 SECONDS Prothromb Time International Ratio 1.3 Sodium Level 140 mmol/L Potassium Level 3.7 mmol/L Chloride Level 106 mmol/L Carbon Dioxide Level 26 mmol/L Anion Gap 8.0 mmol/L Blood Urea Nitrogen 25 mg/dl Creatinine 4.20 mg/dl Est Creatinine Clear Calc Drug Dose 21.8 ml/min Estimated GFR () 16.5 Estimated GFR (Non- 14.3 BUN/Creatinine Ratio 6.0 Random Glucose 130 mg/dl Calcium Level 8.4 mg/dl Phosphorus Level 3.6 mg/dl Total Creatine Kinase 20 U/L Albumin 2.7 gm/dl Assessment and Plan 62yo male with Aortic valve endocarditis in the setting of recent MRSA bacteremia. ESRD on HD, PAD, T2DM, chronic systolic CHF, a. flutter on coumadin , and CAD s/p CABG. MRSA bacteremia with aortic valve endocarditis - * ID consultation, daptomycin q48h; will be able to receive the daptomycin on HD days as outpatient according to nephrology, plan total of 6 weeks of IV abx therapy * repeat blood cx's x 2 sets thus far negative and had negative blood cultures from 06/13/17 * he is s/p removal of HD catheter by Dr. Gaston; cath tip sent for culture * has completed 2 weeks of IV vancomycin prior to this admission ESRD on HD - nephrology consultation, new HD catheter on 06/[address] Marilin yeettarian - rates controlled with BB and digoxin; digoxin level adequate. Holding coumadin in anticipation of placing new HD catheter. Resume coumadin post-op. T2DM - uncontrolled. lantus and log but hold lantus pre procedure diabetic neuropathy - gabapentin 100mg TID. chronic systolic CHF - most recent EF was 35-40% - cont BB and lasix. Not AKI/ ARB candidate due to ESRD. PAD - continue aspirin therapy. He apparently, by history, is statin intolerant. CAD - continue BB, aspirin. NO ischemic symptoms at this time. DVT proph - hold coumadin due to vascular surgery needed. SW consult - patient reports having financial difficulty paying hospital bills, etc. depression/anxiety - continuous improvement specialist consult; started sertraline 25mg hs this admission, increase to 50mg at HS Continued [facility] stay due to: multiple IV medications needed Discharge planning: home with home health
--- NOTE | 2017-06-20 09:10 | Nephrology Progress Note ---
Nephrology Progress Note Date of Service Jun 20, 2017. Chief Complaint ESRD Subjective No acute events overnight. No complaints this morning. Rubio was resting comfortably in bed. He denies fevers or chills. Appetite is good. He denies shortness of breath. Cultures negative. Ambulating in room without difficulty. Review of Systems A complete review of systems was performed. Pertinent positives are noted above. All other systems are negative. Vital Signs Last 8 Hrs Date Time Temp Pulse Resp B/P (MAP) Pulse Ox O2 Delivery O2 Flow Rate FiO2 06/20/17 07:15 Room Air 06/20/17 06:54 36.6 76 19 105/70 (82) 97 Room Air 06/20/17 04:09 36.5 74 20 101/65 95 Room Air 06/20/17 04:00 36.5 74 20 101/65 (77) 95 Room Air 06/20/17 04:00 95 Room Air Last Recorded Weight Weight (Kilograms): 95.700 Physical Exam General Appearance: WD/WN, no apparent distress Head: normocephalic, atraumatic Eyes: normal inspection, sclerae normal ENT: normal ENT inspection, pharynx normal Neck: supple, no JVD Respiratory/Chest: lungs clear, no respiratory distress, no accessory muscle use Cardiovascular: regular rate, rhythm, no gallop Abdomen/GI: non tender, soft Extremities/Musculoskelatal: normal inspection, + pedal edema Neurologic/Psych: alert, normal mood/affect Family History No pertinent family history Social History Smokeless Tobacco Use: No Alcohol Use: none Drug Use: none Marital Status: (lives with & son) Housing Status: lives with family 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4 mg/dl (8.5-10.1) Phosphorus Level 3.6 mg/dl (2.5-4.9) Total Creatine Kinase 20 U/L (39-308) Albumin 2.7 gm/dl (3.4-5.0) Allergies Coded Allergies: No Known Allergies (Unverified , 05/21/17) Medications Current Inpatient Medications Medications (Trade) Dose Ordered Sig/Mikie Route Start Time Stop Time Status Last Admin Dose Admin Ondansetron HCl (Zofran Inj) 4 mg Q6H PRN IV 06/17/17 15:00 07/17/17 14:59 Miscellaneous (Iv Fluids Completed) 1 ea PRN PRN N/A 06/17/17 15:15 06/17/18 15:14 Aspirin (Ecotrin Tab) 81 mg QAM PO 06/18/17 09:00 07/18/17 08:59 06/19/17 08:29 81 MG Vitamin B Complex/ Vit C/Folic Acid (Nephrocaps) 1 cap BID PO 06/17/17 21:00 07/17/17 20:59 06/19/17 19:52 1 CAP Carvedilol (Coreg Tab) 12.5 mg BID PO 06/17/17 21:00 07/17/17 20:59 06/20/17 07:30 12.5 MG Digoxin (Lanoxin Tab) 0.125 mg DAILY@1600 PO 06/17/17 17:30 07/17/17 17:29 06/19/17 16:40 0.125 MG Docusate Sodium (coLACE CAP) 100 mg DAILY PO 06/18/17 09:00 07/18/17 08:59 06/20/17 07:29 100 MG Fish Oil ([place]-3 (Purified Fish Oil) Cap) 1 gm DAILY PO 06/18/17 09:00 07/18/17 08:59 06/19/17 08:31 1 GM Furosemide (Lasix Tab) 40 mg BID PO 06/17/17 21:00 07/17/17 20:59 06/20/17 07:31 40 MG Lactulose (Chronulac Syrup) 10 gm BID PRN PO 06/17/17 16:30 07/17/17 16:29 Nitroglycerin (Nitrostat Tab) 0.4 mg PRN UT 06/17/17 16:30 07/17/17 16:29 Midodrine (Proamatine Tab) 5 mg TID@,,17 PO 06/17/17 17:00 07/17/17 16:59 06/20/17 07:29 5 MG Sertraline HCl (Zoloft Tab) 25 mg HS PO 06/17/17 21:00 07/17/17 20:59 06/19/17 19:52 25 MG Glucose (Glucose 40% Gel) 15-30 GRAMS 15 GRAMS... UD PRN PO 06/17/17 17:00 07/17/17 16:59 Glucose (Glucose Chew Tab) 4-8 Tablets 4 Tabl... UD PRN PO 06/17/17 17:00 07/17/17 16:59 Dextrose (Dextrose 50% 50ML Syringe) 25-50ML OF 50% DW IV FOR... UD PRN IV 06/17/17 17:00 07/17/17 16:59 Glucagon (Glucagon Inj) 1 mg UD PRN SQ 06/17/17 17:00 07/17/17 16:59 Insulin Aspart (novoLOG ASPART) SLIDING SCALE G... ACHS SC 06/17/17 17:45 07/17/17 17:44 06/19/17 20:17 11 UNITS Daptomycin (Consult) 1 ea UD PRN N/A 06/17/17 19:15 07/17/17 19:14 Alprazolam (Xanax Tab) 0.25 mg Q8H PRN PO 06/18/17 20:30 07/18/17 20:29 06/19/17 21:27 0.25 MG Insulin Glargine (Lantus Solostar Pen) 15 units QAM SC 06/19/17 09:30 07/19/17 09:29 Future hold 06/19/17 09:55 15 UNITS Acetaminophen (Tylenol Tab) 1,000 mg Q8 PRN PO 06/19/17 10:45 07/19/17 10:44 Gabapentin (Neurontin Cap) 100 mg TID@0800,1200,1900 PO 06/19/17 12:00 07/19/17 11:59 06/20/17 07:29 100 MG Daptomycin 950 mg/ Sodium Chloride 69 ml @ 100 mls/hr Q48H IV 06/19/17 18:00 07/31/17 17:59 06/19/17 17:07 100 MLS/HR Insulin Glargine (Lantus Solostar Pen) 25 units QPM SC 06/19/17 21:00 07/17/17 20:59 06/19/17 20:18 25 UNITS Impression (1) ESRD (end stage renal disease) on dialysis (2) Endocarditis (3) Atrial flutter (4) Anemia Rubio is a 62-year-old gentlemen with ESRD on hemodialysis Saturday, , Saturday via right IJ tunnel dialysis catheter. Has hypertension, diabetes mellitus, coronary artery disease, CHF (LVEF 35%) with right-sided heart failure as well as atrial fibrillation/flutter. He was recently admitted to [facility] with sepsis due to MRSA bacteremia and lower extremity cellulitis. He was treated with 14 days of vancomycin and antibiotic lock therapy. Unfortunately, a vegetation was noted on TTE. Repeat cultures NGTD. Remains afebrile and no stigmata on exam otherwise. Recommendations -- Blood pressure, volume status and electrolytes appropriate -- TDC to be placed today versus tomorrow by vascular -- Cultures NGTD -- Daptomycin will be available in the outpatient HD unit starting Friday 06/22 -- Weekly labs including CPK to be monitored -- Will schedule next inpatient treatment pending catheter placement -- Renal diet with 1 L daily fluid restriction
--- NOTE | 2017-06-20 13:31 | Infectious Disease Progress Nt ---
Progress Note Date of Service Jun 20, 2017. Subjective Pt evaluation today including: conversation w/ patient, physical exam, chart review, lab review, review of studies, conversation w/ interior design consultant, review of inpatient medication list No new complaints. Tolerating daptomycin. Remains afebrile. All cultures negative. All Other Systems: Reviewed and Negative Medications Current Inpatient Medications Medications (Trade) Dose Ordered Sig/Mikie Route Start Time Stop Time Status Last Admin Dose Admin Ondansetron HCl (Zofran Inj) 4 mg Q6H PRN IV 06/17/17 15:00 07/17/17 14:59 Miscellaneous (Iv Fluids Completed) 1 ea PRN PRN N/A 06/17/17 15:15 06/17/18 15:14 Aspirin (Ecotrin Tab) 81 mg QAM PO 06/18/17 09:00 07/18/17 08:59 06/19/17 08:29 81 MG Vitamin B Complex/ Vit C/Folic Acid (Nephrocaps) 1 cap BID PO 06/17/17 21:00 07/17/17 20:59 06/19/17 19:52 1 CAP Carvedilol (Coreg Tab) 12.5 mg BID PO 06/17/17 21:00 07/17/17 20:59 06/20/17 07:30 12.5 MG Digoxin (Lanoxin Tab) 0.125 mg DAILY@1600 PO 06/17/17 17:30 07/17/17 17:29 06/19/17 16:40 0.125 MG Docusate Sodium (coLACE CAP) 100 mg DAILY PO 06/18/17 09:00 07/18/17 08:59 06/20/17 07:29 100 MG Fish Oil ([place]-3 (Purified Fish Oil) Cap) 1 gm DAILY PO 06/18/17 09:00 07/18/17 08:59 06/19/17 08:31 1 GM Furosemide (Lasix Tab) 40 mg BID PO 06/17/17 21:00 07/17/17 20:59 06/20/17 07:31 40 MG Lactulose (Chronulac Syrup) 10 gm BID PRN PO 06/17/17 16:30 07/17/17 16:29 Nitroglycerin (Nitrostat Tab) 0.4 mg PRN UT 06/17/17 16:30 07/17/17 16:29 Midodrine (Proamatine Tab) 5 mg TID@08,12,17 PO 06/17/17 17:00 07/17/17 16:59 06/20/17 12:05 5 MG Sertraline HCl (Zoloft Tab) 25 mg HS PO 06/17/17 21:00 07/17/17 20:59 06/19/17 19:52 25 MG Glucose (Glucose 40% Gel) 15-30 GRAMS 15 GRAMS... UD PRN PO 06/17/17 17:00 07/17/17 16:59 Glucose (Glucose Chew Tab) 4-8 Tablets 4 Tabl... UD PRN PO 06/17/17 17:00 07/17/17 16:59 Dextrose (Dextrose 50% 50ML Syringe) 25-50ML OF 50% DW IV FOR... UD PRN IV 06/17/17 17:00 07/17/17 16:59 Glucagon (Glucagon Inj) 1 mg UD PRN SQ 06/17/17 17:00 07/17/17 16:59 Insulin Aspart (novoLOG ASPART) SLIDING SCALE G... ACHS SC 06/17/17 17:45 07/17/17 17:44 06/19/17 20:17 11 UNITS Daptomycin (Consult) 1 ea UD PRN N/A 06/17/17 19:15 07/17/17 19:14 Alprazolam (Xanax Tab) 0.25 mg Q8H PRN PO 06/18/17 20:30 07/18/17 20:29 06/19/17 21:27 0.25 MG Insulin Glargine (Lantus Solostar Pen) 15 units QAM SC 06/19/17 09:30 07/19/17 09:29 Future hold 06/19/17 09:55 15 UNITS Acetaminophen (Tylenol Tab) 1,000 mg Q8 PRN PO 06/19/17 10:45 07/19/17 10:44 Gabapentin (Neurontin Cap) 100 mg TID@0800,1200,1900 PO 06/19/17 12:00 07/19/17 11:59 06/20/17 12:05 100 MG Daptomycin 950 mg/ Sodium Chloride 69 ml @ 100 mls/hr Q48H IV 06/19/17 18:00 11/8/17 17:59 06/19/17 17:07 100 MLS/HR Insulin Glargine (Lantus Solostar Pen) 25 units QPM SC 06/19/17 21:00 07/17/17 20:59 06/19/17 20:18 25 UNITS Objective Vital Signs Date Time Temp Pulse Resp B/P (MAP) Pulse Ox O2 Delivery O2 Flow Rate FiO2 06/20/17 12:00 Room Air 06/20/17 11:31 36.5 66 18 110/64 (79) 95 06/20/17 07:15 Room Air 06/20/17 06:54 36.6 76 19 105/70 (82) 97 Room Air 06/20/17 04:09 36.5 74 20 101/65 95 Room Air 06/20/17 04:00 36.5 74 20 101/65 (77) 95 Room Air 06/20/17 04:00 95 Room Air 06/20/17 00:01 96 Room Air 06/19/17 23:39 36.4 74 19 93/69 (77) 96 Room Air 06/19/17 20:00 Room Air 06/19/17 19:57 36.6 78 18 100/66 (77) 96 Room Air 06/19/17 16:40 78 06/19/17 16:00 36.3 92 18 97/68 (78) 94 Room Air 06/19/17 16:00 Room Air Physical Exam General Appearance: WD/WN, no apparent distress Eyes: normal inspection, sclerae normal ENT: normal ENT inspection, pharynx normal Neck: supple, no adenopathy, trachea midline Respiratory/Chest: lungs clear, normal breath sounds, no respiratory distress Cardiovascular: regular rate, rhythm, no gallop, no murmur Abdomen: normal bowel sounds, non tender, soft, no organomegaly Extremities: non-tender, no calf tenderness Neurologic/Psychiatric: alert, oriented x 3 Skin: normal color, no rash Lymphatic: no adenopathy Laboratory Results Last 24 Hours Test 06/19/17 16:25 06/19/17 19:49 06/19/17 21:16 06/19/17 23:41 Bedside Glucose 374 mg/dl 401 mg/dl 335 mg/dl 199 mg/dl Test 06/20/17 04:05 06/20/17 06:17 06/20/17 06:25 06/20/17 11:11 Bedside Glucose 139 mg/dl 133 mg/dl 149 mg/dl Prothrombin Time 13.5 SECONDS Prothromb Time International Ratio 1.3 Sodium Level 140 mmol/L Potassium Level 3.7 mmol/L Chloride Level 106 mmol/L Carbon Dioxide Level 26 mmol/L Anion Gap 8.0 mmol/L Blood Urea Nitrogen 25 mg/dl Creatinine 4.20 mg/dl Est Creatinine Clear Calc Drug Dose 21.8 ml/min Estimated GFR () 16.5 Estimated GFR (Non- 14.3 BUN/Creatinine Ratio 6.0 Random Glucose 130 mg/dl Calcium Level 8.4 mg/dl Phosphorus Level 3.6 mg/dl Total Creatine Kinase 20 U/L Albumin 2.7 gm/dl Assessment and Plan 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 Patient should continue on daptomycin adjusted for his renal insufficiency, and will require 6 weeks of therapy. To watch carefully for embolic phenomenon. Dialysis catheter removed. Monitor CPK on daptomycin. Will follow.
--- NOTE | 2017-06-20 14:26 | Medical Student: [facility] ---
Discharge Summary Admission Date: Jun 18, 2017 at 16:39 Discharge Date: Jun 20, 2017 Discharge Disposition: Home Principal Diagnosis: MRSA Endocarditis Problems/Secondary Diagnoses: Atrial Flutter, Compensated CHF, T2DM, ESRD Immunizations: Have You Had Influenza Vaccine: Unknown History of Tetanus Vaccine?: Unknown History of Pneumococcal: Unknown History of Hepatitis B Vaccine: Unknown Medications: Aspirin (Aspirin EC Low Dose), 81 MG PO QAM B-Complex W/ C & Folic Acid (Renal), 1 CAP PO BID Carvedilol (Carvedilol), 12.5 MG PO BID Digoxin (Digoxin), 0.125 MG PO Q1600 Docusate Sodium (Colace), 100 MG PO DAILY Fish Oil ([place]-3), 1 CAP PO DAILY Furosemide (Lasix), 40 MG PO BID Gabapentin (Neurontin), 1 CAP PO BID Insulin Aspart (Novolog), 5 UNITS SC TIDM Insulin Glargine (Lantus), 20 UNIT SC QPM Midodrine Hcl (Midodrine Hcl), 5 MG PO TID Nitroglycerin (Nitrostat), 0.4 MG UT PRN Warfarin Sod (Jantoven), 0.5 TAB PO DAILY Discharge Exam Review of Systems: Constitutional: No fever, No chills, No sweats, No weakness Respiratory: No cough, No sputum, No wheezing, No shortness of breath Cardiovascular: No chest pain, No palpitations Abdomen: No pain, No nausea, No vomiting, No diarrhea, No constipation Genitourinary - Male: No dysuria, No urinary frequency Physical Exam: General Appearance: WD/WN, no apparent distress (sitting on the edge of the bed. ) Eyes: normal inspection, PERRL, EOMI ENT: hearing grossly normal Neck: supple, no adenopathy, thyroid normal Respiratory/Chest: lungs clear, normal breath sounds, no respiratory distress Cardiovascular: regular rate, rhythm, no JVD, no murmur Abdomen / GI: non tender, soft, no organomegaly Extremities: normal capillary refill, + pedal edema (1+ bilaterally. Non- pitting, rigid edema. ) Neurologic/Psychiatric: alert, normal mood/affect Skin: normal color, warm/dry Hospital Course Mr. Montgomery is a 57 year old male with a PMH of ESRD on HD, T2DM and CHF who was admitted directly following the discovery of vegetations on his aortic valve during a ROBERTO as a f/u to MRSA bacteremia. While inpt, the pt's perm cath was removed and cultured. Until discharge blood and catheter tip cultures have remained negative. He began Daptomycin (6mg/kg IV q48 hrs) for the treatment of his bacterial endocarditis. This treatment will end on 07/23/17. This treatment will be given at dialysis on discharge. He was started on Sertraline 25mg while inpt. His blood sugars while inpt were difficult to control. Began Lantus 25 units q day and Novolog on sliding scale as follows: Correction factor of 25 mg/dl/unit and 1 unit per 8 grams of CHO. New Permcath was placed on 06/20/2017 Total Time Spent: Greater than 30 minutes This includes examination of the patient, discharge planning, medication reconciliation, and communication with other providers. Discharge Instructions Please refer to the electronic Patient Visit Report (Discharge Instructions) for additional information. Follow-Up You will begin to receive your daptomycin at dialysis starting on 06/22/2017. Your new Lantus dose is 25 units every day. Continue using novolog as you were prior to admission.
[2017-06-20] MEDS ORDERED: HEPARIN SOD (PORCINE) 5000 UNIT/ML 1 ML VIAL ONE (16:42)
[2017-06-20] MEDS ORDERED: FENTANYL CITRATE INJ 50 MCG/1 ML 2 ML VIAL ONE (16:42)
[2017-06-20] MEDS ORDERED: MIDAZOLAM HCL 1 MG/ML 2ML VIAL ONE ×2 (16:42→17:17)
--- NOTE | 2017-06-20 16:47 | Progress Note ---
Progress Note Date of Service Jun 20, 2017. Progress Note Patient for permcath insertion today. I have discussed the risks options and benefits of the procedure with the patient. The patient understands the risks options and benefits and agrees to the procedure. I have examined the patient, reviewed the History & Physical and in the interval since the performance of the History & Physical I have noted the following changes of clinical significance: No changes noted
--- NOTE | 2017-06-20 16:48 | Procedure Note ---
Pre-Mod Sedation Assessment General Date of Moderate Sedation: Jun 20, 2017. Vital Signs: Vital Signs Past 12 Hours Date Time Temp Pulse Resp B/P (MAP) Pulse Ox O2 Delivery O2 Flow Rate FiO2 06/20/17 16:00 Room Air 06/20/17 13:46 Room Air 06/20/17 12:00 Room Air 06/20/17 11:31 36.5 66 18 110/64 (79) 95 06/20/17 07:15 Room Air 06/20/17 06:54 36.6 76 19 105/70 (82) 97 Room Air Review Cardiovascular: regular rate, rhythm, no JVD, no murmur Abdomen: non tender, soft, no organomegaly Lungs: lungs clear, normal breath sounds, no respiratory distress Pre-Sedation Airway Assessment Oral Cavity: Dental Abnormalities Short Thick Neck: No Hx of Sleep Apnea: No Smoking Status: Former Smoker Mallampati Classification: Class I ASA Classification: Class III Notes The planned sedation has been discussed with the patient and consent obtained. I have identified the patient, determined the appropriateness of sedation and have assessed the patient immediately prior to the procedure. All medicine(s) and interventions are by my order.
[2017-06-20] MEDS ORDERED: ZLF50 PO ×2 (16:52)
[2017-06-20] MEDS ORDERED: DAPT500I IV ×2 (16:54)
--- NOTE | 2017-06-20 16:56 | Discharge Instructions ---
Discharge Instructions Date of Service Jun 20, 2017. Admission Reason for Admission: Mrsa Bacteremia, Aortic Valve Vegetation Discharge Discharge Diagnosis / Problem: endocarditis, cardiorenal syndrome Discharge Goals Goal(s): Diagnostic testing, Therapeutic intervention Activity Recommendations Activity Limitations: resume your previous activity . Current Hospital Diet Patient's current hospital diet: Renal Diet, Diabetes Type 2 Diet, Low Sodium Diet (2gm Na) Discharge Diet Recommended Diet: Low Sodium Diet (2gm Na), Diabetes Type 2 Diet, Renal Diet Procedures Procedures Performed: Removal of permcath Pending Studies Studies pending at discharge: yes (final culture results) List of pending studies: blood cultures Laboratory Results Hemoglobin A1c Test 05/13/17 09:00 Range/Units Estimated Average Glucose 209 mg/dl Hemoglobin A1c 8.9 H 4.5-5.6 % Lipid Panel Test 05/08/17 19:39 Range/Units Triglycerides Level 179 H 0-150 mg/dl Cholesterol Level 122 0-200 mg/dl HDL Cholesterol 31 mg/dl Cholesterol/HDL Ratio 3.9 LDL Cholesterol, Calculated 55 mg/dl Medical Emergencies . Who to Call and When: Medical Emergencies: If at any time you feel your situation is an emergency, please call 911 immediately. . Non-Emergent Contact Non-Emergency issues call your: Primary Care Provider, Roller Cleaner Call Non-Emergent contact if: temperature is above 101, your pain is unusual for you . . "Provider Documentation" section prepared by Jermaine Wahl. . VTE Core Measure Inpt VTE Proph given/why not?: Warfarin (Coumadin)
[2017-06-20] MEDS ORDERED: MIDAZOLAM HCL 1 MG/ML 2ML VIAL IV ONE (17:02)
[2017-06-20] MEDS ORDERED: FENTANYL CITRATE INJ 50 MCG/1 ML 2 ML VIAL IV ONE (17:02)
[2017-06-20] MEDS ORDERED: LIDOCAINE HCL 1% 20 ML VIAL INFIL ONE (17:06)
--- NOTE | 2017-06-20 17:19 | Discharge Summary ---
Discharge Summary Date of Service Jun 20, 2017. Discharge Summary Admission Date: Jun 18, 2017 at 16:39 Discharge Date: Jun 20, 2017 Discharge Disposition: Home Principal Diagnosis: endocarditis, esrd on dialysis , catheder replacement Immunizations: Have You Had Influenza Vaccine: Unknown History of Tetanus Vaccine?: Unknown History of Pneumococcal: Unknown History of Hepatitis B Vaccine: Unknown Procedures: removal and replacement of dialysis cath Medication Reconciliation New Medications: Daptomycin (Daptomycin) 500 Mg Inj 950 MG IV Q48H, #21 DOSE Sertraline HCl (Sertraline HCl) 50 Mg Tab 50 MG PO HS, #60 TAB Continued Medications: Aspirin (Aspirin EC Low Dose) 81 Mg Ectab 81 MG PO QAM for 30 Days B-Complex W/ C & Folic Acid (Renal) 1 Cap Cap 1 CAP PO BID, #60 CAP 2 Refills Carvedilol (Carvedilol) 12.5 Mg Tab 12.5 MG PO BID, #60 TABS 2 Refills for your heart Digoxin (Digoxin) 0.125 Mg Tab 0.125 MG PO Q1600, #30 TAB 2 Refills for your heart Docusate Sodium (Colace) 100 Mg Cap 100 MG PO DAILY Fish Oil (Proctor-3) 1 Ea Cap 1 CAP PO DAILY, CAP Furosemide (Lasix) 40 Mg Tab 40 MG PO BID, #60 TAB 2 Refills for fluid and your heart Gabapentin (Neurontin) 100 Mg Cap 1 CAP PO BID for 30 Days, #60 CAP 2 Refills Insulin Aspart (Novolog) 100 Units/Ml Inj 5 UNITS SC TIDM, #1 BTL 5 Refills Insulin Glargine (Lantus) 100 Unit/Ml Inj 25 UNIT SC QPM, VIAL Lactulose (Chronulac) 10 Gm/15 Ml Syrp 15 ML PO BID PRN for Constipation, #1 Midodrine Hcl (Midodrine Hcl) 5 Mg Tab 5 MG PO TID, #90 TAB 0 Refills Nitroglycerin (Nitrostat) 0.4 Mg Tab 0.4 MG UT PRN, BTL Psyllium (Metamucil) 48.57 % Pow Warfarin Sod (Jantoven) 5 Mg Tab 0.5 TAB PO DAILY, #30 TAB 2 Refills blood thinner for your heart Discontinued Medications: Vancomycin HCl in Sodium Chlor (VANCOMYCIN in NSS) 1 Inj Inj 500 MG IV UD for 14 Days, BAG 0 Refills GIVE EACH DOSE AFTER DIALYSIS ON //SATURDAY Discharge Exam Review of Systems: Constitutional: No fever, No chills Respiratory: No cough, No sputum Cardiovascular: No chest pain, No orthopnea Physical Exam: General Appearance: WD/WN, + mild distress Eyes: PERRL, EOMI Respiratory/Chest: chest non-tender, lungs clear, normal breath sounds Cardiovascular: regular rate, rhythm, + systolic murmur Abdomen / GI: normal bowel sounds, non tender, soft Extremities: normal range of motion, + pedal edema, + swelling Neurologic/Psychiatric: alert, oriented x 3 Hospital Course 62yo male with Aortic valve endocarditis in the setting of recent MRSA bacteremia. ESRD on HD, PAD, T2DM, chronic systolic CHF, a. flutter on coumadin , and CAD s/p CABG. MRSA bacteremia with aortic valve endocarditis - * ID consultation, daptomycin q48h on HD, plan total of 6 weeks of IV abx therapy * repeat blood cx's x 2 sets thus far negative and had negative blood cultures from 06/13/17 * he is s/p removal of HD catheter by Dr. Gaston; cath tip sent for culture final pending at discharge ESRD on HD - nephrology consultation, new HD catheter on 06/[address] Marilin noonan flutter - rates controlled with BB and digoxin; digoxin level adequate. resume coumadin post-op. T2DM - uncontrolled. lantus and log - gabapentin 100mg TID. chronic systolic CHF - most recent EF was 35-40% - cont BB and lasix. Not AKI/ ARB candidate due to ESRD. PAD - continue aspirin therapy. He is statin intolerant. CAD - continue BB, aspirin. NO ischemic symptoms at this time. 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 Discharge Instructions Please refer to the electronic Patient Visit Report (Discharge Instructions) for additional information.
[2017-06-20] MEDS ORDERED: HEPARIN SOD (PORCINE) 5000 UNIT/ML 1 ML VIAL IV ONE (17:25)
--- NOTE | 2017-06-20 17:30 | Procedure Note ---
Post-Moderate Sedation Plan General Date of Moderate Sedation Jun 20, 2017. Vital Signs: Vital Signs Past 12 Hours Date Time Temp Pulse Resp B/P (MAP) Pulse Ox O2 Delivery O2 Flow Rate FiO2 06/20/17 16:00 Room Air 06/20/17 13:46 Room Air 06/20/17 12:00 Room Air 06/20/17 11:31 36.5 66 18 110/64 (79) 95 06/20/17 07:15 Room Air 06/20/17 06:54 36.6 76 19 105/70 (82) 97 Room Air Review - Discharge Plan Post Moderate Sedation Plan: On clinical assessment, the patient appears to have tolerated the conscious sedation without complications. Patient is recovering as anticipated. Patient will continue to be monitored by nursing and may be discharged when conscious sedation discharge criteria are met.
--- NOTE | 2017-06-20 17:31 | [facility] Operative Report ---
Operative Report Operative Date Jun 20, 2017. Pre-Operative Diagnosis End Stage Renal Disease Post-Operative Diagnosis Same Procedure(s) Performed Perm Cath Insertion, Right Jugular Approach Ultrasound Localization of Right Jugular Approach Fluoroscopy for Positioning Moderate Sedation [id number] Surgeon Marilin Rn Surgical Pcu Surgeon(s) Dr. Olivares Estimated Blood Loss 0 Findings tip in distal SVC Fluids none Specimens None Drains none Anesthesia Local Complication(s) None Disposition Indications Mr. Montgomery is a 62 y/o male with ESRD who had his right tunnelled HD catheter removed 2 days prior due to bactermia and endocartitis. His blood cultures are negative and he was advised of the risk and benefits placing a new tunnelled hemodialysis line. He agreed to the above procedure and was brought to the operative suite. Description of Procedure Patient was takent to the angio suite and placed in the supine position. The right side of the neck and chest wall were prepped and draped in a sterile manner. Local anesthesia was then administered to the appropriate areas of the neck and chest wall. Ultrasound was then used to locate the right internal jugular v ein. The vein compressed easily, had no filing defects, and was patent. The vein was then punctured under direct ultrasound imaging. A guidewire was unable to pass into the SVC. The needle was removed and a new ultrasound guided puncture was obtained. The wire was still unable to pass into the SVC. A glide was was then utilized and passed into the R IJ. A 5 ethiopian sheath was placed into the IJ. The glide wire was then able to be passed into the SVC and then passed centrally under fluoroscopic imaging. A stab wound was then made in the anterior chest wall and a 19 cm permcath was passed from the stab wound on the chest wall to the puncture site on the neck. The puncture site was then dilated till the 14Fr peel away sheath was inserted. The permcath was then inserted through the sheath to a central position in the distal superior vena cava. The peel away sheath was then removed. The catheter was then sutured in place using nylon sutures. The puncture was then closed using a 4-0 Vicryl subcuticular suture. Dermabond was used for a dressing on the puncture site. Both ports aspirated and flushed easily and were then packed with heparin. A sterile dressing was applied to the catheter. The patient left the angio suite in good condition and tolerated the procedure well. I, Dr. Gaston was present and scrubbed for the entire procedure. I attest to the content of the Intraoperative Record and any orders documented therein. Any exceptions are noted below.
--- NOTE | 2017-06-20 17:34 | [facility] Post Operative Brief Note ---
Immediate Operative Summary Operative Date Jun 20, 2017. Pre-Operative Diagnosis End Stage Renal Disease Post-Operative Diagnosis Same Procedure(s) Performed Perm Cath Insertion, Right Jugular Approach Ultrasound Localization of Right Jugular Approach Fluoroscopy for Positioning Moderate Sedation [id number] Surgeon Marilin Armhole Baster Jumpbasting Surgeon(s) Dr. Olivares Estimated Blood Loss 0 Findings tip in distal SVC Fluids (cc crystalloids) none Specimens None Anesthesia Local with conscious sedation Complication(s) None Disposition
[2017-06-20] MEDS: DIGOXIN 0.125 MG TAB PO SCH (17:54)
--- NOTE | 2017-06-26 13:17 | EDITING REQUIRED CODING QUERY ---
SEPSIS To promote full compliance with coding requirements relating to patient care, physician participation is requested in all cases of academic administrator uncertainty. Please assist us with the question(s) below: In responding to this query, please exercise your independent professional judgement. The fact that a question is asked does not imply that any particular answer is desired or expected. We appreciate your clarification on this issue. Throughout the chart Both Sepsis and Bacteremia have been documented these terms cannot be used interchangeable below can you please clarify the final diagnosis. Thank you. ()Bacteremia (Nonspecific laboratory finding of bacteria in the blood) Specify Organism () Present on Admission () Not present on admission (xxxx) Unable to clinically determine () Sepsis Specify Organism Specify Associated Condition/Diagnosis () Present on Admission () Not present on admission () Unable to clinically determine () Other, patient has:
== END 2017-06-20 19:15 | disposition home or self-care (01) | DRG 314 ==
LOC: INTOOBSV 12:39 → C.2T 12:39 → OBSVTOIN 06-18 16:39
PROVIDERS: ADMIT Hospitalist; ATTEND Internal Medicine
PROC: 05PYX3Z Removal of Infusion Device from Upper Vein, External Approach (ICD-10-PCS; principal; 2017-06-18 10:00)
PROC: 05HM33Z Insertion of Infusion Device into Right Internal Jugular Vein, Percutaneous Approach (ICD-10-PCS; 2017-06-20)
DX: T82.7XXA Infection and inflammatory reaction due to other cardiac and vascular devices, implants and grafts, initial encounter (principal); N18.6 End stage renal disease; I33.0 Acute and subacute infective endocarditis; R78.81 Bacteremia; I50.22 Chronic systolic (congestive) heart failure; I48.92 Unspecified atrial flutter; I13.2 Hypertensive heart and chronic kidney disease with heart failure and with stage 5 chronic kidney disease, or end stage renal disease; B95.62 Methicillin resistant Staphylococcus aureus infection as the cause of diseases classified elsewhere; I73.9 Peripheral vascular disease, unspecified; Z99.2 Dependence on renal dialysis; I48.91 Unspecified atrial fibrillation; I25.10 Atherosclerotic heart disease of native coronary artery without angina pectoris; Z95.1 Presence of aortocoronary bypass graft; Z87.891 Personal history of nicotine dependence; I25.2 Old myocardial infarction; D64.9 Anemia, unspecified; Z80.1 Family history of malignant neoplasm of trachea, bronchus and lung; Z79.4 Long term (current) use of insulin; Z79.82 Long term (current) use of aspirin; Z79.2 Long term (current) use of antibiotics; Z79.01 Long term (current) use of anticoagulants; Y83.8 Other surgical procedures as the cause of abnormal reaction of the patient, or of later complication, without mention of misadventure at the time of the procedure; E11.22 Type 2 diabetes mellitus with diabetic chronic kidney disease; E11.40 Type 2 diabetes mellitus with diabetic neuropathy, unspecified; F32.9 Major depressive disorder, single episode, unspecified; F41.9 Anxiety disorder, unspecified

== ENCOUNTER → 2017-06-25 | Outpatient (CLI) | payer OTHER ==
[~2017-06-25] MED LIST changes: +DAPT500I IV; +ZLF50 PO
[2017-06-25 14:34] LABS: ALT/SGPT 17 U/L (12-78); AST/SGOT 9 U/L (15-37); BLOOD UREA NITROGEN 26 mg/dl (7-18); CALCIUM 8.5 mg/dl (8.5-10.1); CARBON DIOXIDE 29 mmol/L (21-32); CHLORIDE 101 mmol/L (98-107); GLUCOSE 325 mg/dl (70-99); POTASSIUM 3.8 mmol/L (3.5-5.1); SODIUM 139 mmol/L (136-145)
[2017-06-25 14:36] LABS: ALB/GLOB RATIO 0.8 (0.9-2)
[2017-06-25 14:44] LABS: ALKALINE PHOSPHATASE 160 U/L (45-117); BETA-HYDROXYBUTYRATE 1.24 mg/dL (0.2-2.81)
== END | disposition home or self-care (01) ==
LOC: C.LABSPEC 13:44
PROVIDERS: ATTEND Internal Medicine Nephrology
DX: I33.0 Acute and subacute infective endocarditis (principal)

== ENCOUNTER → 2017-07-02 | Outpatient (CLI) | payer OTHER ==
[~2017-07-02] MED LIST changes: -VANC1INJ94 IV
[2017-07-02 10:37] LABS: BLOOD UREA NITROGEN 18 mg/dl (7-18); BUN/CREATININE RATIO 4.3 (10-20); CALCIUM 9.3 mg/dl (8.5-10.1); CARBON DIOXIDE 31 mmol/L (21-32); CHLORIDE 97 mmol/L (98-107); GLUCOSE 475 mg/dl (70-99); POTASSIUM 3.7 mmol/L (3.5-5.1); SODIUM 135 mmol/L (136-145)
[2017-07-02 10:49] LABS: BETA-HYDROXYBUTYRATE 0.83 mg/dL (0.2-2.81)
== END | disposition home or self-care (01) ==
LOC: C.LABSPEC 10:09
PROVIDERS: ATTEND Family Medicine
DX: N18.4 Chronic kidney disease, stage 4 (severe) (principal); I50.9 Heart failure, unspecified

== ENCOUNTER → 2017-07-09 | Outpatient (CLI) | payer OTHER | LOC: C.LABSPEC 13:25 | PROVIDERS: ATTEND Internal Medicine Nephrology | DX: R68.89 Other general symptoms and signs (principal) ==